=== PATIENT | male | born 1950 | race Caucasian/White ===

== ENCOUNTER → 2016-09-04 | Outpatient (CLI) | payer OTHER ==
[~2016-09-04] MED LIST: ADVIN25050 INH; ASPEC81 PO; GLC500 PO; HYDR-5688 PO; LISI-725 PO; MULTCHW PO; PRLSR20 PO; SERT50TA PO; SIMV20TA2 PO; VNTHFA/IN INH
[2016-09-04 13:10] LABS: BASO % 0.5 %; BASO ABS # 0.05 K/uL (0-0.2); COMPLETE YES; EOS % 6.2 %; HEMATOCRIT 47.5 % (42-52); IG% 0.2 %; LYMPH % 29.6 %; LYMPH ABS # 2.78 K/uL (1.2-3.4); MEAN CELL VOLUME 89.5 fL (80-100); MEAN CORPUSCULAR HEMOGLOBIN 29.6 pg (25-34); MEAN CORPUSCULAR HGB CONC 33.1 g/dl (32-36); MEAN PLATELET VOLUME 10.1 fL (7.4-10.4); MONO % 9.9 %; NEUT % 53.6 %; PLATELET COUNT 237 K/uL (130-400); RED BLOOD COUNT 5.31 M/uL (4.7-6.1)
[2016-09-04 13:32] LABS: ESTIMATED AVERAGE GLUCOSE 123 mg/dl; HA1C FLAG Normal (Normal)
[2016-09-04 13:48] LABS: ALT/SGPT 38 U/L (12-78); AST/SGOT 24 U/L (15-37); BLOOD UREA NITROGEN 14 mg/dl (7-18); BUN/CREATININE RATIO 12.4 (10-20); CALCIUM 9.1 mg/dl (8.5-10.1); CARBON DIOXIDE 26 mmol/L (21-32); CHLORIDE 106 mmol/L (98-107); GLUCOSE 97 mg/dl (70-99); SODIUM 142 mmol/L (136-145)
[2016-09-04 13:53] LABS: ALB/GLOB RATIO 1.1 (0.9-2); ALKALINE PHOSPHATASE 75 U/L (45-117); CHOLESTEROL 152 mg/dl (0-200); CHOLESTEROL/HDL RATIO 3.5; HDL CHOLESTEROL 43 mg/dl; LDL CHOLESTEROL CALCULATED 76 mg/dl; TRIGLYCERIDES 163 mg/dl (0-150); VERY LOW DENSITY LIPOPROT CALC 33 mg/dl
--- NOTE | 2016-09-11 06:38 | CODING QUERY MEDICAL NECESSITY ---
SUPPORTING DIAGNOSIS NEEDED A supporting diagnosis is required for the test/procedure performed on this patient in order for us to be reimbursed by the patient's insurance. Please provide a supporting diagnosis for the following test/procedure listed below next to the test name along with your signature. *If there is no additional diagnosis for this patient that would support the following test/procedure please document that below next to the test/procedure. Test(s)/Procedure(s) that require a supporting diagnosis: * GLYCATED HEMOGLOBIN DIAGNOSIS: * DOS: 09/04/16 Provider Signature: Date: Thank you Bety Acosta Health Information Management Once completed, please kindly fax back to [phone] For questions please call [phone]
== END | disposition home or self-care (01) ==
LOC: C.LAB1850 11:50
PROVIDERS: ATTEND Internal Medicine
DX: Z00.00 Encounter for general adult medical examination without abnormal findings (principal); E78.5 Hyperlipidemia, unspecified; I10 Essential (primary) hypertension; E88.81 Metabolic syndrome and other insulin resistance; R73.03 Prediabetes; N40.0 Benign prostatic hyperplasia without lower urinary tract symptoms

== ENCOUNTER → 2016-09-11 | Outpatient (CLI) | payer OTHER ==
--- NOTE | 2016-09-11 12:16 | DIAGNOSTIC IMAGING REPORT ---
ABDOMEN ULTRASOUND FOR HERNIA CLINICAL HISTORY: RIGHT SIDED GROIN PAIN COMPARISON STUDY: None. FINDINGS: Suboptimal evaluation due to the patient's body habitus. There is small fat-containing reducible right inguinal hernia. No fluid collections or masses identified within the right groin. IMPRESSION: There appears to be a small fat-containing reducible right inguinal hernia. Electronically signed by: Conner Ballard M.D. 09/11/2016 12:14 PM Dictated Date/Time: 09/11/2016 12:14 PM
== END | disposition home or self-care (01) ==
LOC: C.ULTRBC 10:41
PROVIDERS: ATTEND Internal Medicine
DX: R10.30 Lower abdominal pain, unspecified (principal)

== ENCOUNTER → 2016-11-13 | Outpatient (CLI) | payer OTHER ==
[~2016-11-13] MED LIST changes: -PRLSR20 PO
--- NOTE | 2016-11-13 14:24 | DIAGNOSTIC IMAGING REPORT ---
CHEST 2 VIEWS ROUTINE CLINICAL HISTORY: Asthma. COMPARISON STUDY: Chest radiograph May 10, 2011. FINDINGS: Lung volumes are normal. Mild bibasilar opacities favor atelectasis. There is no consolidation to suggest pneumonia and there is no evidence of pulmonary edema. Cardiomediastinal silhouette is normal. Patient is mildly rotated. IMPRESSION: No acute cardiopulmonary findings. Electronically signed by: Fortino Martin M.D. 11/13/2016 2:22 PM Dictated Date/Time: 11/13/2016 2:21 PM
== END | disposition home or self-care (01) ==
LOC: C.RAD1850 14:07
PROVIDERS: ATTEND Internal Medicine
DX: J45.909 Unspecified asthma, uncomplicated (principal)

== ENCOUNTER → 2016-11-19 | Day surgery (SDC) | payer OTHER ==
[2016-11-07 11:33] VITALS: BMI 40.0
--- NOTE | 2016-11-07 12:05 | PAT Medication Instructions ---
Service Date November 07, 2016. Current Home Medication List Albuterol Hfa (Ventolin Hfa), 2-4 PUFFS INH Q6H PRN for Shortness of Breath Aspirin Enteric Coated (Ecotrin Or Generic *), 81 MG PO QPM Fluticasone Prop/Salmeterol (Advair Diskus 250/50 Mcg *), 1 PUFF INH BID Lisinopril (Zestril), 20 MG PO QAM Metformin Hcl (Glucophage *), 500 MG PO BID Multiple Vitamins W/ Minerals (Centrum Silver), 1 TAB PO QAM Sertraline (Zoloft), 50 MG PO QAM Simvastatin (Zocor), 20 MG PO QPM Medication Instructions For Your Scheduled Surgery - Hold the following medications 1 week prior to surgery per surgeon's instructions: Aspirin Enteric Coated (Ecotrin Or Generic *), 81 MG PO QPM - Hold the following medications 48 hours prior to surgery: Metformin Hcl (Glucophage *), 500 MG PO BID - Hold the following medications the morning of surgery: Lisinopril (Zestril), 20 MG PO QAM Multiple Vitamins W/ Minerals (Centrum Silver), 1 TAB PO QAM - Take the following medications the morning of surgery with a sip of water OTHERWISE NOTHING TO EAT OR DRINK AFTER MIDNIGHT: Albuterol Hfa (Ventolin Hfa), 2-4 PUFFS INH Q6H PRN for Shortness of Breath ( use if needed; BRING TO HOSPITAL) Sertraline (Zoloft), 50 MG PO QAM Fluticasone Prop/Salmeterol (Advair Diskus 250/50 Mcg *), 1 PUFF INH BID - Take the following medications as scheduled the night before surgery: Albuterol Hfa (Ventolin Hfa), 2-4 PUFFS INH Q6H PRN for Shortness of Breath Simvastatin (Zocor), 20 MG PO QPM Fluticasone Prop/Salmeterol (Advair Diskus 250/50 Mcg *), 1 PUFF INH BID If you have any questions please call us at [phone] or [phone] or [phone]
[2016-11-07 13:21] LABS: BASO % 0.5 %; BASO ABS # 0.05 K/uL (0-0.2); COMPLETE YES; EOS % 5.3 %; HEMATOCRIT 48.6 % (42-52); IG% 0.2 %; LYMPH % 28.2 %; LYMPH ABS # 2.63 K/uL (1.2-3.4); MEAN CELL VOLUME 92.2 fL (80-100); MEAN CORPUSCULAR HEMOGLOBIN 30.4 pg (25-34); MEAN CORPUSCULAR HGB CONC 32.9 g/dl (32-36); MEAN PLATELET VOLUME 10.1 fL (7.4-10.4); MONO % 10.6 %; NEUT % 55.2 %; PLATELET COUNT 231 K/uL (130-400); RED BLOOD COUNT 5.27 M/uL (4.7-6.1); WHITE BLOOD COUNT 9.31 K/uL (4.8-10.8)
[2016-11-07 14:06] LABS: BUN/CREATININE RATIO 9.9 (10-20); CALCIUM 8.8 mg/dl (8.5-10.1); CREATININE 1.2 mg/dl (0.60-1.40)
[~2016-11-19] VITALS: Ht 180.3 cm; Wt 131.8 kg
[~2016-11-19] MED LIST changes: +ATROPINE SULFATE 0.1 MG/ML 5ML SYR IV PRN; +BUPIVACAINE/EPINEPHRINE 0.5% MPF 1:200,000 30 ML VIAL ONE; +CLINDAMYCIN 600 MG/54 ML D5W IV SCH; +DEXAMETHASONE SOD INJ 4 MG/ML VIAL ONE; +EpHEDrine SULFATE INJ 50 MG/ML AMP IV PRN; +FENTANYL CITRATE INJ 50 MCG/1 ML 2 ML VIAL IV PRN; +FENTANYL CITRATE INJ 50 MCG/1 ML 2 ML VIAL ONE; +FLUMAZENIL 0.1 MG/1 ML 10 ML VIAL IV PRN; +GLYCOPYRROLATE INJ 0.2 MG/ML VIAL ONE; +HYDROCODONE/ACETAMOPHEN 5/325MG TAB PO PRN; +HYDROmorphone INJ 2 MG/ML SYR/VIAL IV PRN; +LABETALOL HCL IV 5 MG/ML 20ML IV PRN; +LACTATED RINGER'S 1000ML 1,000 ML IV SCH; +LIDOCAINE HCL 2% 2 ML VIAL (20MG/ML) ONE; +MEPERIDINE HCL 25 MG/ML CARP IV PRN; +MIDAZOLAM HCL 1 MG/ML 2ML VIAL ONE; +NALOXONE HCL 0.4 MG/1 ML VIAL/CARP IV PRN; +NEOSTIGMINE METHYLSULFATE 5 MG/5 ML SYR ONE; +ONDANSETRON INJ 2 MG/ML 2 ML VIAL IV PRN; +ONDANSETRON INJ 2 MG/ML 2 ML VIAL ONE; +PHENYLEPHRINE 100MCG/ML 5ML SYR IV PRN; +PROPOFOL IV EMULSION 10 MG/ML 20 ML VIAL IV ONE; +ROCURONIUM BROMIDE 10 MG/ML 5 ML VIAL ONE; +SODIUM CHLORIDE 0.9% 1000ML 1,000 ML IV SCH; +SUCCINYLCHOLINE CHLORIDE 20 MG/ML 10 ML VIAL IV ONE
[2016-11-19 06:45] VITALS: BP 128/77; PULSE 89; TEMP 37.2; O2SAT 93; Ht 180.3 cm; Wt 131.8 kg
--- NOTE | 2016-11-19 08:04 | History & Physical Bridge Note ---
H&P Re-Evaluation Bridge Note: I have examined the patient, reviewed the History & Physical and in the interval since the performance of the History & Physical I have noted the following changes of clinical significance: No changes noted
--- NOTE | 2016-11-19 09:55 | [facility] Operative Report ---
Operative Report Operative Date Nov 19, 2016. Pre-Operative Diagnosis Right Inguinal Hernia Post-Operative Diagnosis direct and indirect RIH Procedure(s) Performed open right inguinal hernia repair with mesh Surgeon Dr. Barry Hobbing Machine Operator Surgeon(s) Nikki Trevino Estimated Blood Loss 10 ml Findings large direct and small indirect RIH Specimens None per Surgeon Anesthesia LMA Complication(s) None Disposition Recovery Room / PACU I attest to the content of the Intraoperative Record and any orders documented therein. Any exceptions are noted below.
--- NOTE | 2016-11-19 10:08 | Discharge Instructions ---
Discharge Instructions Date of Service Nov 19, 2016. Admission Reason for Admission: Right Inguinal Hernia Discharge Discharge Diagnosis / Problem: Right Inguinal Hernia Discharge Goals Goal(s): Decrease discomfort, Improve function Activity Recommendations Activity Limitations: as noted below Lifting Limitations: no more than 10 pounds Exercise/Sports Limitations: until after follow-up appointment May Resume Sexual Activity: after follow-up appointment Shower/Bathe: tomorrow . Instructions / Follow-Up Instructions / Follow-Up Please follow-up with Dr. Barry in the office in 1-2 weeks. Please call the office at [phone] to make an appointment if you do not have one already. Please call the office with any questions or concerns at [phone]. Current Hospital Diet Patient's current hospital diet: Discharge Diet Recommended Diet: Regular Diet Procedures Procedures Performed: Right Open Inguinal Hernia Repair with Mesh Pending Studies Studies pending at discharge: no Laboratory Results Hemoglobin A1c Test 09/04/16 11:54 Range/Units Estimated Average Glucose 123 mg/dl Hemoglobin A1c 5.9 H 4.5-5.6 % Lipid Panel Test 09/04/16 11:54 Range/Units Triglycerides Level 163 H 0-150 mg/dl Cholesterol Level 152 0-200 mg/dl HDL Cholesterol 43 mg/dl Cholesterol/HDL Ratio 3.5 LDL Cholesterol, Calculated 76 mg/dl Medical Emergencies . Who to Call and When: Medical Emergencies: If at any time you feel your situation is an emergency, please call 911 immediately. . Non-Emergent Contact Non-Emergency issues call your: Primary Care Provider, Surgeon Call Non-Emergent contact if: temperature is above 101.5, your pain is not controlled, wound has increased drainage, wound has increased redness . "Provider Documentation" section prepared by Nikki Frazier. . VTE Core Measure Inpt VTE Proph given/why not?: SCD's [place] Drug Monitoring Program Search Results: patient reviewed within database, no issues identified
--- NOTE | 2016-11-19 10:28 | Anesthesiology Progress Note ---
Anesthesia Post Op Note Date & Time Nov 19, 2016 at 10:28 Vital Signs Pain Intensity: 0 Vital Signs Past 12 Hours Date Time Temp Pulse Resp B/P (MAP) Pulse Ox O2 Delivery O2 Flow Rate FiO2 11/19/16 10:20 76 16 148/79 94 Room Air 11/19/16 10:10 76 16 154/60 99 Mask 10 11/19/16 10:00 77 16 156/78 98 Mask 10 11/19/16 09:54 36.5 81 16 154/79 97 Mask 10 11/19/16 06:45 37.2 89 18 128/77 (94) 93 Room Air Notes Mental Status: alert / awake / arousable, participated in evaluation Pt Amnestic to Procedure: Yes Nausea / Vomiting: adequately controlled Pain: adequately controlled Airway Patency, RR, SpO2: stable & adequate BP & HR: stable & adequate Hydration State: stable & adequate Anesthetic Complications: no major complications apparent
[2016-11-19 10:35] VITALS: BP 145/76; PULSE 78; TEMP 37; O2SAT 94
--- NOTE | 2016-11-19 11:03 | OPERATIVE REPORT ---
DATE OF OPERATION: 11/19/2016 PREOPERATIVE DIAGNOSIS: Symptomatic right inguinal hernia. POSTOPERATIVE DIAGNOSES: Direct and indirect right inguinal hernia. PROCEDURE: Open right inguinal hernia repair with mesh. SURGEON: Dr. Barry. TOOL AND MACHINE MAINTAINER: Nikki Frazier PA-C. ESTIMATED BLOOD LOSS: Approximately 10 mL. COMPLICATIONS: No immediate. ANESTHESIA: General with a laryngeal mask airway. OPERATIVE NOTE: After informed consent was obtained, the patient taken the operating suite, placed in supine position. After successful intubation, a Brown catheter was placed and the right groin was shaved and sterilely prepped and draped in usual fashion. An inguinal incision was made with 10 blade scalpel and carried down through the soft tissue using electrocautery. Exposure was somewhat difficult due to body habitus. Nonetheless, we were able to identify and skeletonize the external oblique aponeurosis. With a fresh blade, we made an incision in that and then used a Metzenbaum scissors to extend this distally through the external ring as well as for several centimeters proximally. Once in the inguinal canal, I used blunt finger dissection. We were able to gently elevate the cord and cord structures off the pubic bone. A Ermelinda drain was placed around them. Once we did this, we immediately noted a moderate sized direct hernia. It was readily reducible. We did inspect the cord and cord structures and did find a small indirect hernia with some fat incarceration. I was able to use some blunt dissection and small amounts of electrocautery to tease this back to the neck of the hernia. We did clamp the hernia and divided it and tied it off with 3-0 Vicryl and dunked it back into the abdominal cavity. We then used a piece of keyhole polypropylene mesh as an onlay. It was secured distally to Dawit's ligament, laterally along the shelving portion of Poupart's ligament and medially along the midline musculature. This was all performed with 0 Ethibond. The "arms" of the mesh were wrapped around behind the cord and cord structures and again secured to underlying muscle. At the end of procedure, the mesh laid nice and flat without tension. We did thoroughly irrigate the wound. There was adequate hemostasis. Some Marcaine was injected around the edges of the mesh for postoperative analgesia. A 2-0 Vicryl was used to close the external oblique aponeurosis in running fashion. Soft tissue was irrigated and closed in multiple layers using 2-0 Vicryl, 3-0 Vicryl and 4-0 Monocryl. Dermabond glue was used as a dressing, and some additional Marcaine was injected around the incision for postoperative analgesia. The patient was awakened, extubated, and transferred to recovery in stable condition. I attest to the content of the Intraoperative Record and any orders documented therein. Any exception s are noted below.
[2016-11-19 11:05] VITALS: BP 156/78; PULSE 81; TEMP 36.6; O2SAT 94
== END | disposition home or self-care (01) ==
LOC: C.ACU 06:11
PROVIDERS: ATTEND Surgery
DX: K40.90 Unilateral inguinal hernia, without obstruction or gangrene, not specified as recurrent (principal); J45.909 Unspecified asthma, uncomplicated; I10 Essential (primary) hypertension; E11.9 Type 2 diabetes mellitus without complications; E78.5 Hyperlipidemia, unspecified; J44.9 Chronic obstructive pulmonary disease, unspecified; G47.33 Obstructive sleep apnea (adult) (pediatric); M19.90 Unspecified osteoarthritis, unspecified site; Z87.891 Personal history of nicotine dependence; Z98.818 Other dental procedure status; Z98.890 Other specified postprocedural states; Z88.0 Allergy status to penicillin; Z90.89 Acquired absence of other organs; Z79.82 Long term (current) use of aspirin; E66.01 Morbid (severe) obesity due to excess calories; Z68.41 Body mass index [BMI] 40.0-44.9, adult

== ENCOUNTER → 2017-03-07 | Outpatient (CLI) | payer OTHER ==
[~2017-03-07] MED LIST changes: -ATROPINE SULFATE 0.1 MG/ML 5ML SYR IV PRN; -BUPIVACAINE/EPINEPHRINE 0.5% MPF 1:200,000 30 ML VIAL ONE; -CLINDAMYCIN 600 MG/54 ML D5W IV SCH; -DEXAMETHASONE SOD INJ 4 MG/ML VIAL ONE; -EpHEDrine SULFATE INJ 50 MG/ML AMP IV PRN; -FENTANYL CITRATE INJ 50 MCG/1 ML 2 ML VIAL IV PRN; -FENTANYL CITRATE INJ 50 MCG/1 ML 2 ML VIAL ONE; -FLUMAZENIL 0.1 MG/1 ML 10 ML VIAL IV PRN; -GLYCOPYRROLATE INJ 0.2 MG/ML VIAL ONE; -HYDR-5688 PO; -HYDROCODONE/ACETAMOPHEN 5/325MG TAB PO PRN; -HYDROmorphone INJ 2 MG/ML SYR/VIAL IV PRN; -LABETALOL HCL IV 5 MG/ML 20ML IV PRN; -LACTATED RINGER'S 1000ML 1,000 ML IV SCH; -LIDOCAINE HCL 2% 2 ML VIAL (20MG/ML) ONE; -MEPERIDINE HCL 25 MG/ML CARP IV PRN; -MIDAZOLAM HCL 1 MG/ML 2ML VIAL ONE; -NALOXONE HCL 0.4 MG/1 ML VIAL/CARP IV PRN; -NEOSTIGMINE METHYLSULFATE 5 MG/5 ML SYR ONE; -ONDANSETRON INJ 2 MG/ML 2 ML VIAL IV PRN; -ONDANSETRON INJ 2 MG/ML 2 ML VIAL ONE; -PHENYLEPHRINE 100MCG/ML 5ML SYR IV PRN; -PROPOFOL IV EMULSION 10 MG/ML 20 ML VIAL IV ONE; -ROCURONIUM BROMIDE 10 MG/ML 5 ML VIAL ONE; -SODIUM CHLORIDE 0.9% 1000ML 1,000 ML IV SCH; -SUCCINYLCHOLINE CHLORIDE 20 MG/ML 10 ML VIAL IV ONE
[2017-03-07 12:22] LABS: ESTIMATED AVERAGE GLUCOSE 123 mg/dl; HA1C FLAG Normal (Normal)
[2017-03-07 12:33] LABS: BLOOD UREA NITROGEN 17 mg/dl (7-18); BUN/CREATININE RATIO 15.1 (10-20); CALCIUM 9.4 mg/dl (8.5-10.1); CARBON DIOXIDE 25 mmol/L (21-32); CHLORIDE 107 mmol/L (98-107); GLUCOSE 107 mg/dl (70-99); POTASSIUM 4.2 mmol/L (3.5-5.1); SODIUM 139 mmol/L (136-145)
[2017-03-07 12:36] LABS: ALT/SGPT 29 U/L (12-78); AST/SGOT 17 U/L (15-37); CHOLESTEROL 149 mg/dl (0-200); CHOLESTEROL/HDL RATIO 3.5; HDL CHOLESTEROL 42 mg/dl; LDL CHOLESTEROL CALCULATED 76 mg/dl; TRIGLYCERIDES 153 mg/dl (0-150); VERY LOW DENSITY LIPOPROT CALC 31 mg/dl
== END | disposition home or self-care (01) ==
LOC: C.LAB1850 10:27
PROVIDERS: ATTEND Internal Medicine
DX: Z00.00 Encounter for general adult medical examination without abnormal findings (principal); Z11.59 Encounter for screening for other viral diseases; E78.5 Hyperlipidemia, unspecified; I10 Essential (primary) hypertension; R73.03 Prediabetes

== ENCOUNTER → 2017-09-04 | Outpatient (CLI) | payer OTHER ==
[2017-09-04 12:55] LABS: HEMOGLOBIN A1C 5.9 % (4.5-5.6)
[2017-09-04 13:56] LABS: ALT/SGPT 29 U/L (12-78); AST/SGOT 16 U/L (15-37); BLOOD UREA NITROGEN 12 mg/dl (7-18); CALCIUM 9.3 mg/dl (8.5-10.1); CARBON DIOXIDE 27 mmol/L (21-32); CHOLESTEROL 163 mg/dl (0-200); CREATININE 1.12 mg/dl (0.60-1.40); GLUCOSE 101 mg/dl (70-99); SODIUM 139 mmol/L (136-145)
[2017-09-04 14:07] LABS: LDL CHOLESTEROL CALCULATED 91 mg/dl
== END | disposition home or self-care (01) ==
LOC: C.LAB1850 10:22
PROVIDERS: ATTEND Internal Medicine
DX: E78.5 Hyperlipidemia, unspecified (principal); I10 Essential (primary) hypertension; R73.03 Prediabetes; E88.81 Metabolic syndrome and other insulin resistance

== ENCOUNTER 2021-07-19 19:43 | Inpatient (IN) ==
--- NOTE | 2021-07-19 20:12 | Emergency Department Note ---
Impression & Plan Acute exacerbation of chronic obstructive pulmonary disease, Pneumonia, Acute hypoxemic respiratory failure, Acute dehydration, Influenza A ED Provider Note NAME: VAZQUEZ PACE AGE: 71 SEX: M : 1950 ARRIVES VIA: Ambulance INFORMANT: patient, ED PROVIDER(S): Gerson Walton MD Chief Complaint: Shortness of breath HPI: Patient presents due to concern for shortness of breath ongoing approximately a week and a half and progressively worse during this time. The patient believes that he may have the flu but has not been tested for Covid or the flu and the patient is not vaccinated. The patient has had a nonproductive cough. Patient is a former smoker but is not smoked since the . Patient denies any history of DVT or PE. The patient has not been eating or drinking very much and to try to eat today and had a little bit of diarrhea. The patient states that he has been more less short in his home for the last several months and has not left his home. Patient denies any recent surgeries or procedures. The patient denies any abdominal pain nausea or vomiting. ROS: See HPI for pertinent positives and negatives. A total of 10 systems were reviewed and otherwise negative. Past medical history: See below Surgical history: See below Social history: See below Physical Exam: GENERAL: Moderately ill in appearance, nasal cannula in place, wearing a mask EYE EXAM: Normal conjunctiva. PERRL, no anisocoria and EOM's grossly intact w/o pain. OROPHARYNX: Moist mucus membranes. Grossly normal dentition. NECK: Supple, no nuchal rigidity, no adenopathy, non-tender. No signs of mening ismus. LUNGS: Diffuse inspiratory and expiratory wheezes throughout. Normal chest wall mechanics. HEART: Tachycardic and regular, no MRG. ABDOMEN: Abdomen soft, non-tender, normo-active bowel sounds, no masses, no rebound or guarding. BACK: No CVA TTP. SKIN: No rashes and no bruising. UPPER EXTREMITIES: Upper extremities are grossly normal. LOWER EXTREMITIES: Mottled feet but normal sensation, delayed cap refill, no temperature difference bilaterally. Rash over the lateral aspect of the right leg with open area with no active drainage, no crepitus, compartments are soft. No calf pain bilaterally NEURO EXAM: A&O x3, cranial nerves II-XII grossly intact, normal speech, moves all 4 extremities on command w/o issue. Differential diagnoses: Reactive airway disease, pneumonia, pneumothorax, COPD, CHF, infections, cardiac ischemia, pulmonary embolism, musculoskeletal, gastrointestinal, as well as other pathologies. Course: Patient was seen and evaluated the bedside. Full history physical exam was performed. EKG interpreted by me Sinus tachycardia, rate of 115, normal NM and QRS, normal axis, machine read as acute STEMI but there is motion artifact and the patient denies any chest pain. Imaging Studies: See Below Cardiac monitoring: An order was placed for continuous cardiac monitoring. The monitor shows a rate of 125 with tachycardic and regular rhythm. MDM: Patient was seen due to concern for shortness of breath. The patient did have diffuse wheezing throughout. Patient did have blood work completed and was treated symptomatically given his history of COPD and respiratory distress. The patient did not want BiPAP and stated that he would not be intubated. The patient's symptoms were treated with DuoNeb steroids magnesium and fluids. Patient was covered with antibiotics cefepime. The patient has a white count was 13 with mild anemia at 12.3 hemoglobin. Patient's platelet count is unremarkable. VBG does not show any signs of acidosis or hypercarbia. Kidney function is unremarkable. Patient's troponin is not detectable. Procalcitonin was 2.2. The patient is negative for Covid but is positive for flu A. Patient was ordered Tamiflu. Given patient's respiratory issues I did speak with the on-call hospitalist Dr. Moss and the patient was admitted to the medicine service. EKG showed sinus tachycardia. Patient does not complain of chest pain and has a negative troponin. Do not believe that he is having acute STEMI believe that the machine is reading it based on the motion artifact. Patient's history and physical exam is more consistent with infectious etiology. Critical Care: I have personally spent 55 minutes of critical care time in direct management of this patient. This includes bedside care, interpretation of diagnostic studies, and testing, discussion with consultants, patient, and family members, and other require inpatient management activities. This 55 minutes is in excess of all separately billable procedures. Past Med/Surg History Medical History Asthma COPD (chronic obstructive pulmonary disease) Diverticulosis Dyslipidemia GERD (gastroesophageal reflux disease) HTN (hypertension) Sleep apnea Surgical History H/O inguinal hernia repair H/O oral surgery History of throat surgery for sleep apnea- Dr. Arriola S/P partial colectomy S/P tonsillectomy and adenoidectomy Family History Other Adopted Family history unknown Social History Smoking Status: Former smoker Tobacco Type: Cigarettes Second Hand Exposure: No; Do You Dip or Chew Tobacco: No; Tobacco Cessation Education Requested by Patient: Yes Hx Alcohol Use: No Hx Substance Use: No Preferred Language: French Communication Ability: Effective Visual Impairment: No Limitations Hearing Ability: Normal Storyboard Artist Required: No Beliefs That Will Affect Care: None marital status: Current Living Situation: Spouse and Family current occupational status: unemployed and disabled Other Information That Helps Us Care for You: No Feels Safe at Home: Yes Safety Concerns: Feels Safe At This Time Childhood Exposure to Second-Hand Smoke: Yes during the past year weight has: remained stable Dental Care, Regularly: No Physical Activity Frequency: Does not Exercise Seatbelt Use: always Sunscreen Use: No Assistive Devices: Walker Allergies Allergies Allergy/AdvReac Type Severity Reaction Status Date / Time cheese Allergy Unknown SICK TO Verified 07/19/21 21:32 STOMACH Penicillins Allergy Unknown RASH Verified 07/19/21 21:32 Home Meds Home Medications Medication Instructions Recorded Confirmed aspirin 81 mg tablet,delayed 81 mg PO QPM 03/07/19 07/19/21 release (Adult Aspirin Regimen) multivitamin 1 tab PO DAILY 03/07/19 07/19/21 Previous Rx's Medication Instructions Recorded Symbicort 160 mcg-4.5 2 puff INH BID #30.6 g NS 09/01/20 mcg/actuation HFA aerosol inhaler (budesonide-formoterol) sertraline 50 mg tablet 50 mg PO DAILY #90 tab 09/19/20 albuterol sulfate 90 mcg/actuation 1 - 2 puff INH Q4H PRN #54 gm 09/20/20 aerosol inhaler (Ventolin HFA) lisinopril 20 mg tablet 20 mg PO DAILY #90 tab 03/02/21 metformin 500 mg tablet 500 mg PO BID #180 tab 03/02/21 simvastatin 20 mg tablet (Zocor) 20 mg PO QPM #90 tab 03/02/21 furosemide 20 mg tablet 20 mg PO DAILY #90 tab 06/22/21 potassium chloride 10 mEq 10 meq PO DAILY #90 cap 06/22/21 capsule,extended release Results & Data (ED) Vital Signs Vital Signs - 24 hr 07/19/21 20:12 07/19/21 21:03 07/19/21 21:51 Temperature 36.5 C Temperature Source Oral Pulse Rate 123 H 94 H Pulse Rate [Finger] 123 H Respiratory Rate 26 H 19 Respiratory Effort / Characteristics Labored Labored Respiratory Depth Shallow Respiratory Pattern Rapid/Shallow Blood Pressure 108/80 Blood Pressure [Left Arm] 108/80 Blood Pressure Mean 89 Blood Pressure Mean [Left Arm] 89 Blood Pressure Position [Left Arm] Sitting Pulse Oximetry 92 94 93 Oxygen Delivery Method Nasal Cannula Nasal Cannula Nasal Cannula Oxygen Flow Rate 8 8 6 Sepsis Recent Fever Within 48 Hours No Sepsis New/Unexplained Change in Mental Status N/A Sepsis Action Taken by Nursing Physician Notified Oxygen Flow Rate - Titration 8 Pulse Oximetry Post Tiitration 92 07/19/21 22:21 Temperature Temperature Source Pulse Rate Pulse Rate [Finger] 135 H Respiratory Rate Respiratory Effort / Characteristics Respiratory Depth Respiratory Pattern Blood Pressure Blood Pressure [Left Arm] 186/109 H Blood Pressure Mean Blood Pressure Mean [Left Arm] 134 Blood Pressure Position [Left Arm] Sitting Pulse Oximetry 93 Oxygen Delivery Method Nasal Cannula BiPAP Oxygen Flow Rate 8 Sepsis Recent Fever Within 48 Hours Sepsis New/Unexplained Change in Mental Status Sepsis Action Taken by Nursing Oxygen Flow Rate - Titration Pulse Oximetry Post Tiitration Home Medications Current Medication List: was personally reviewed by me Laboratory Data Attestation: I reviewed the patient's lab results. Result diagrams: 07/20/21 06:10 07/20/21 06:10 Lab Results 07/19/21 07/19/21 07/19/21 Range/Units 20:34 20:34 20:34 WBC 13.52 H (4.8-10.8) K/uL RBC 4.11 L (4.7-6.1) M/uL Hgb 12.3 L (14.0-18.0) g/dL Hct 37.2 L (42-52) % MCV 90.5 (80-100) fL MCH 29.9 (25-34) pg MCHC 33.1 (32-36) g/dL RDW Std Deviation 46.4 H (36.4-46.3) fL RDW Coeff of Jocelyn 13.8 (11.5-14.5) % Plt Count 291 (130-400) K/uL MPV 9.2 (7.4-10.4) fL Immature Gran % (Auto) 0.4 % Neut % (Auto) 84.3 % Lymph % (Auto) 6.4 % Hamilton % (Auto) 8.3 % Eos % (Auto) 0.5 % Baso % (Auto) 0.1 % Neut # (Auto) 11.39 H (1.4-6.5) K/uL Lymph # (Auto) 0.87 L (1.2-3.4) K/uL Hamilton # (Auto) 1.12 H (0.11-0.59) K/uL Eos # (Auto) 0.07 (0-0.5) K/uL Baso # (Auto) 0.02 (0-0.2) K/uL Immature Gran # (Auto) 0.05 H (0.00-0.02) K/uL PT 10.5 (9.0-12.0) Seconds INR 1.0 (0.9-1.1) APTT 26.2 (21.0-31.0) Seconds PTT Ratio 1.0 VBG pH (7.36-7.41) VBG pCO2 (38-50) mmHg VBG pO2 mmHg VBG HCO3 mmol/L VBG O2 Saturation % VBG Base Excess mEq/L Barometric Pressure mm/Hg Sodium 137 (136-145) mmol/L Potassium 4.5 (3.5-5.1) mmol/L Chloride 104 (98-107) mmol/L Carbon Dioxide 25 (21-32) mmol/L Anion Gap 8 (3-11) BUN 23 (6-23) mg/dl Creatinine 1.19 (0.6-1.4) mg/dl Est Cr Clr Drug Dosing 79.7 ml/min Est GFR ( Amer) 70.3 ml/min Est GFR (Non-Af Amer) 60.7 ml/min BUN/Creatinine Ratio 19.3 (10-20) Glucose 118 H (70-99(Fasting)) mg/dl Lactate (0.4-2.0) mmol/L Calcium 9.1 (8.5-10.1) mg/dl Magnesium 1.6 L (1.7-2.4) mg/dl Total Bilirubin 0.8 (0.2-1.0) mg/dl AST 37 (13-39) U/L ALT 34 (7-52) U/L Alkaline Phosphatase 62 (34-104) U/L Troponin I < 0.03 (0-0.04) ng/ml Total Protein 7.0 (6.0-8.3) gm/dl Albumin 3.3 L (3.4-5.0) gm/dl Globulin 3.7 (2.5-4.0) gm/dl Albumin/Globulin Ratio 0.9 (0.9-2) Procalcitonin (0-0.5) ng/ml SARS-CoV-2 (PCR) (Negative) Influenza Type A (PCR) (Neg) Influenza Type B (PCR) (Neg) RSV (RT-PCR) (Neg) 07/19/21 07/19/21 07/19/21 Range/Units 20:34 20:34 20:34 WBC (4.8-10.8) K/uL RBC (4.7-6.1) M/uL Hgb (14.0-18.0) g/dL Hct (42-52) % MCV (80-100) fL MCH (25-34) pg MCHC (32-36) g/dL RDW Std Deviation (36.4-46.3) fL RDW Coeff of Jocelyn (11.5-14.5) % Plt Count (130-400) K/uL MPV (7.4-10.4) fL Immature Gran % (Auto) % Neut % (Auto) % Lymph % (Auto) % Hamilton % (Auto) % Eos % (Auto) % Baso % (Auto) % Neut # (Auto) (1.4-6.5) K/uL Lymph # (Auto) (1.2-3.4) K/uL Hamilton # (Auto) (0.11-0.59) K/uL Eos # (Auto) (0-0.5) K/uL Baso # (Auto) (0-0.2) K/uL Immature Gran # (Auto) (0.00-0.02) K/uL PT (9.0-12.0) Seconds INR (0.9-1.1) APTT (21.0-31.0) Seconds PTT Ratio VBG pH 7.38 (7.36-7.41) VBG pCO2 42 (38-50) mmHg VBG pO2 32 mmHg VBG HCO3 24 mmol/L VBG O2 Saturation < 60.0 % VBG Base Excess -0.9 mEq/L Barometric Pressure 727.6 mm/Hg Sodium (136-145) mmol/L Potassium (3.5-5.1) mmol/L Chloride (98-107) mmol/L Carbon Dioxide (21-32) mmol/L Anion Gap (3-11) BUN (6-23) mg/dl Creatinine (0.6-1.4) mg/dl Est Cr Clr Drug Dosing ml/min Est GFR ( Amer) ml/min Est GFR (Non-Af Amer) ml/min BUN/Creatinine Ratio (10-20) Glucose (70-99(Fasting)) mg/dl Lactate 1.6 (0.4-2.0) mmol/L Calcium (8.5-10.1) mg/dl Magnesium (1.7-2.4) mg/dl Total Bilirubin (0.2-1.0) mg/dl AST (13-39) U/L ALT (7-52) U/L Alkaline Phosphatase (34-104) U/L Troponin I (0-0.04) ng/ml Total Protein (6.0-8.3) gm/dl Albumin (3.4-5.0) gm/dl Globulin (2.5-4.0) gm/dl Albumin/Globulin Ratio (0.9-2) Procalcitonin 2.27 H (0-0.5) ng/ml SARS-CoV-2 (PCR) (Negative) Influenza Type A (PCR) (Neg) Influenza Type B (PCR) (Neg) RSV (RT-PCR) (Neg) 07/19/21 Range/Units 21:03 WBC (4.8-10.8) K/uL RBC (4.7-6.1) M/uL Hgb (14.0-18.0) g/dL Hct (42-52) % MCV (80-100) fL MCH (25-34) pg MCHC (32-36) g/dL RDW Std Deviation (36.4-46.3) fL RDW Coeff of Jocelyn (11.5-14.5) % Plt Count (130-400) K/uL MPV (7.4-10.4) fL Immature Gran % (Auto) % Neut % (Auto) % Lymph % (Auto) % Hamilton % (Auto) % Eos % (Auto) % Baso % (Auto) % Neut # (Auto) (1.4-6.5) K/uL Lymph # (Auto) (1.2-3.4) K/uL Hamilton # (Auto) (0.11-0.59) K/uL Eos # (Auto) (0-0.5) K/uL Baso # (Auto) (0-0.2) K/uL Immature Gran # (Auto) (0.00-0.02) K/uL PT (9.0-12.0) Seconds INR (0.9-1.1) APTT (21.0-31.0) Seconds PTT Ratio VBG pH (7.36-7.41) VBG pCO2 (38-50) mmHg VBG pO2 mmHg VBG HCO3 mmol/L VBG O2 Saturation % VBG Base Excess mEq/L Barometric Pressure mm/Hg Sodium (136-145) mmol/L Potassium (3.5-5.1) mmol/L Chloride (98-107) mmol/L Carbon Dioxide (21-32) mmol/L Anion Gap (3-11) BUN (6-23) mg/dl Creatinine (0.6-1.4) mg/dl Est Cr Clr Drug Dosing ml/min Est GFR ( Amer) ml/min Est GFR (Non-Af Amer) ml/min BUN/Creatinine Ratio (10-20) Glucose (70-99(Fasting)) mg/dl Lactate (0.4-2.0) mmol/L Calcium (8.5-10.1) mg/dl Magnesium (1.7-2.4) mg/dl Total Bilirubin (0.2-1.0) mg/dl AST (13-39) U/L ALT (7-52) U/L Alkaline Phosphatase (34-104) U/L Troponin I (0-0.04) ng/ml Total Protein (6.0-8.3) gm/dl Albumin (3.4-5.0) gm/dl Globulin (2.5-4.0) gm/dl Albumin/Globulin Ratio (0.9-2) Procalcitonin (0-0.5) ng/ml SARS-CoV-2 (PCR) NEGATIVE (Negative) Influenza Type A (PCR) Positive A* (Neg) Influenza Type B (PCR) Negative (Neg) RSV (RT-PCR) Negative (Neg) Administered Medications Albuterol (Albut/Ipratrop 3mg/0.5mg Neb 3 Ml Vial) 3 ml NEB Q4R [facility]; Protocol Stop: 08/18/21 23:57 Last Admin: 07/20/21 14:34 Dose: 3 ml Documented by: [id number] Admin: 07/20/21 11:14 Dose: 3 ml Documented by: [id number] Admin: 07/20/21 07:10 Dose: 3 ml Documented by: [id number] Admin: 07/20/21 03:32 Dose: 3 ml Documented by: [id number] Admin: 07/20/21 00:40 Dose: 3 ml Documented by: [id number] Enoxaparin Sodium (Enoxaparin Inj 40 Mg/0.4 Ml Syr) 40 mg SQ BID [facility] Stop: 08/19/21 00:29 Last Admin: 07/20/21 10:58 Dose: 40 mg Documented by: [id number] Admin: 07/20/21 00:46 Dose: 40 mg Documented by: [id number] Fluticasone/Vilanterol (Fluticasone/Vilanterol 200/25mcg 14 Puffs/Inhaler) 1 puffs INH DAILY [facility] Stop: 08/19/21 08:59 Last Admin: 07/20/21 08:17 Dose: 1 puffs Documented by: [id number] Furosemide (Furosemide 20 Mg Tab) 20 mg PO DAILY [facility] Stop: 08/19/21 08:59 Last Admin: 07/20/21 08:17 Dose: 20 mg Documented by: [id number] Cefepime HCl 2,000 mg/ Syringe 20 mls @ 5 mls/min IV Q8H [facility]; Protocol Stop: 07/27/21 05:59 Last Admin: 07/20/21 13:20 Dose: 5 mls/min Documented by: [id number] Admin: 07/20/21 05:52 Dose: 5 mls/min Documented by: [id number] Methylprednisolone 40 mg/ (Syringe) 0.64 mls @ 1.5 mls/min IV Q8H [facility] Stop: 08/19/21 05:59 Last Admin: 07/20/21 13:20 Dose: 1.5 mls/min Documented by: [id number] Admin: 07/20/21 05:52 Dose: 1.5 mls/min Documented by: [id number] Lisinopril (Lisinopril 20 Mg Tab) 20 mg PO DAILY [facility] Stop: 08/19/21 08:59 Last Admin: 07/20/21 08:17 Dose: 20 mg Documented by: [id number] Potassium Chloride (Potassium Chloride 10 Meq Tabcr) 10 meq PO DAILY [facility] Stop: 08/19/21 08:59 Last Admin: 07/20/21 08:17 Dose: 10 meq Documented by: [id number] Sertraline HCl (Sertraline Hcl 50 Mg Tablet) 50 mg PO DAILY [facility] Stop: 08/19/21 08:59 Last Admin: 07/20/21 08:17 Dose: 50 mg Documented by: [id number] Discontinued Medications Albuterol (Albut/Ipratrop 3mg/0.5mg Neb 3 Ml Vial) 12 ml INH ONE STA Stop: 07/19/21 20:21 Last Admin: 07/19/21 20:47 Dose: 12 ml Documented by: [id number] Sodium Chloride (Nss) 500 mls @ 999 mls/hr IV .Q31M STA Stop: 07/19/21 20:50 Last Infusion: 07/19/21 21:50 Dose: 0 mls/hr Documented by: [id number] Admin: 07/19/21 20:56 Dose: 999 mls/hr Documented by: [id number] Magnesium Sulfate/Dextrose (Magnesium Sulfate / D5w) 1 gm in 100 mls @ 100 mls/hr IV NOW STA Stop: 07/19/21 21:20 Last Infusion: 07/19/21 21:50 Dose: 0 mls/hr Documented by: [id number] Admin: 07/19/21 20:56 Dose: 100 mls/hr Documented by: [id number] Cefepime HCl (Maxipime) 2,000 mg in 20 mls @ 5 mls/min IV NOW STA; Protocol Stop: 07/19/21 21:39 Last Admin: 07/19/21 22:13 Dose: 5 mls/min Documented by: [id number] Azithromycin 500 mg/ Dextrose 255 mls @ 127.5 mls/hr IV NOW STA Stop: 07/20/21 01:35 Last Infusion: 07/20/21 03:19 Dose: 0 mls/hr Documented by: [id number] Admin: 07/20/21 00:46 Dose: 127.5 mls/hr Documented by: [id number] Lactated Ringer's (Lr) 1,000 mls @ 80 mls/hr IV .[id number] [facility] Stop: 07/21/21 00:57 Last Infusion: 07/20/21 14:16 Dose: 0 mls/hr Documented by: [id number] Admin: 07/20/21 13:20 Dose: 80 mls/hr Documented by: [id number] Infusion: 07/20/21 13:16 Dose: 80 mls/hr Documented by: [id number] Admin: 07/20/21 00:46 Dose: 80 mls/hr Documented by: [id number] Methylprednisolone (Methylprednisolone 125 Mg/2 Ml Vial) 60 mg IV NOW STA Stop: 07/19/21 20:21 Last Admin: 07/19/21 20:58 Dose: 60 mg Documented by: [id number] Oseltamivir Phosphate (Oseltamivir Phosphate 75 Mg Cap) 75 mg PO NOW STA; Protocol Stop: 07/19/21 21:59 Last Admin: 07/19/21 22:13 Dose: 75 mg Documented by: [id number] Imaging Data Radiologist's Impression: Chest X-Ray 07/19/21 20:20 XR chest 1V portable CLINICAL HISTORY: SEPSIS TECHNIQUE: Single frontal radiograph of the chest was obtained. Comparison: None available at the time of this dictation. FINDINGS: No lines and tubes are seen. The cardiomediastinal silhouette is normal. Multifocal airspace opacities are seen. These are most prominent in the right l ower lung. No evidence of pleural effusion or pneumothorax. IMPRESSION: Multifocal airspace opacities may represent atelectasis, pneumonia, and/or aspiration. ACT 112: Negative or not required by law. Electronically signed by: James Pisano M.D. 07/20/2021 9:03 AM Discharge Plan Visit Data Chief Complaint: Shortness of Breath/Dyspnea Stated Complaint: SHORTNESS OF BREATH Discharge Problem: Acute exacerbation of chronic obstructive pulmonary disease, Pneumonia, Acute hypoxemic respiratory failure, Acute dehydration, Influenza A Patient Disposition: Admitted As Inpatient Discharge Instructions Interventions: ED Discharge Assessment Last Done: 07/19/21 23:33 Discharge Problem: Pneumonia Qualifiers: Pneumonia type: due to unspecified organism Laterality: bilateral Lung location: unspecified part of lung Qualified Code(s): J18.9 - Pneumonia, unspecified organism
[2021-07-19] MEDS ORDERED: ALBUT/IPRATROP 3MG/0.5MG NEB 3 ML VIAL INH STA (20:20)
[2021-07-19] MEDS ORDERED: SODIUM CHLORIDE 0.9% 500 ML IV STA (20:20)
[2021-07-19] MEDS ORDERED: methylPREDNISolone 125 MG/2 ML VIAL IV STA (20:20)
[2021-07-19] MEDS ORDERED: MAGNESIUM SULFATE / D5W 1 GM/100 ML BAG IV STA (20:21)
[2021-07-19 20:54] LABS: Basophils # (auto) 0.02 K/uL (0-0.2); Basophils % (auto) 0.1 %; Eosinophils # (auto) 0.07 K/uL (0-0.5); Eosinophils % (auto) 0.5 %; Hematocrit (blood only) 37.2 % (42-52); Hemoglobin 12.3 g/dL (14.0-18.0); Immature Granulocytes # (auto) 0.05 K/uL (0.00-0.02); Immature Granulocytes % (auto) 0.4 %; Lymphocytes # (auto) 0.87 K/uL (1.2-3.4); Lymphocytes % (auto) 6.4 %; Mean Corpuscular Hemoglobin 29.9 pg (25-34); Mean Corpuscular Hgb Conc 33.1 g/dL (32-36); Mean Corpuscular Volume 90.5 fL (80-100); Mean Platelet Volume 9.2 fL (7.4-10.4); Monocytes # (auto) 1.12 K/uL (0.11-0.59); Monocytes % (auto) 8.3 %; Neutrophils # (auto) 11.39 K/uL (1.4-6.5); Neutrophils % (auto) 84.3 %; Platelet Count 291 K/uL (130-400); RDW Coefficient of Variation 13.8 % (11.5-14.5); RDW Standard Deviation 46.4 fL (36.4-46.3); Red Blood Count 4.11 M/uL (4.7-6.1); White Blood Count 13.52 K/uL (4.8-10.8)
[2021-07-19 20:58] LABS: Base Excess VBG -0.9 mEq/L; HCO3 VBG 24 mmol/L; PCO2 VBG 42 mmHg (38-50); PO2 VBG 32 mmHg; pH VBG 7.38 (7.36-7.41)
[2021-07-19 21:00] LABS: Oxygen Saturation VBG < 60.0 %
[2021-07-19 21:06] LABS: Partial Thromboplastin Time 26.2 Seconds (21.0-31.0); Prothrombin Time 10.5 Seconds (9.0-12.0)
[2021-07-19 21:17] LABS: Troponin I < 0.03 ng/ml (0-0.04)
[2021-07-19 21:19] LABS: Alanine Aminotransferase 34 U/L (7-52); Albumin Globulin Ratio 0.9 (0.9-2); Albumin Level 3.3 gm/dl (3.4-5.0); Alkaline Phosphatase 62 U/L (34-104); Anion Gap 8 (3-11); Aspartate Aminotransferase 37 U/L (13-39); BUN Creatinine Ratio 19.3 (10-20); Bilirubin,Total 0.8 mg/dl (0.2-1.0); Blood Urea Nitrogen 23 mg/dl (6-23); Calcium 9.1 mg/dl (8.5-10.1); Carbon Dioxide 25 mmol/L (21-32); Chloride 104 mmol/L (98-107); Creatinine Clr Calc Pharmacy 79.7 ml/min; Est GFR (African American) 70.3 ml/min; Est GFR (Non-African American) 60.7 ml/min; Globulin 3.7 gm/dl (2.5-4.0); Glucose 118 mg/dl (70-99(Fasting)); Magnesium 1.6 mg/dl (1.7-2.4); Potassium 4.5 mmol/L (3.5-5.1); Sodium 137 mmol/L (136-145)
[2021-07-19] MEDS ORDERED: CEFEPIME 2,000 MG/20 ML VIAL IV STA (21:36)
[2021-07-19 21:50] LABS: Influenza B virus by PCR Negative (Neg); RSV by PCR Negative (Neg); SARS CoV2 RNA(COVID-19) InHosp NEGATIVE (Negative)
[2021-07-19 21:58] LABS: Influenza A virus by PCR Positive (Neg)
[2021-07-19] MEDS ORDERED: OSELTAMIVIR PHOSPHATE 75 MG CAP PO STA (21:58)
--- NOTE | 2021-07-19 22:43 | History & Physical Report ---
Date of Service July 19, 2021 Assessment & Plan (1) Influenza: Plan: 71yo male with COPD/Asthma presenting with 2.5 weeks of progressive SOB, dry cough as well as body aches and fatigue. Patient found to be POSITIVE for influenza A. He has not received his Influenza vaccine this year. Hypoxic on arrival now improved on supplemental O2. Presently saturating 93% on 8L/min. Most likely out of the window for benefit from Oseltamivir -Supportive care, supplemental O2 as needed, escalate to HFNC if needed -Maintain isolation precautions - droplet for influenza (2) Pneumonia: Plan: Suspect concomitant bacterial PNA given consolidation on CXR, elevation of procalcitonin -Follow cultures sent from ER -Check sputum culture -Continue Cefepime 2gm IV q 8 -Azithromycin -Tylenol as needed -Tessalon as needed (3) COPD (chronic obstructive pulmonary disease): Plan: Patient with COPD - on home Symbicort and Albuterol. Diffuse wheezing and diminished airflow on exam. Suspect COPD exacerbation in setting of influenza illness contributing to patient's SOB as well. -Supplemental O2 as needed - target saturations >92. Patient does not use home O2. -DuoNeb q 4 hours -Albuterol PRN -Solumedrol 40mg IV TID -Azithromycin -Tessalon -Flutter valve and incentive spirometry\ (4) Dyslipidemia: Plan: Chronic. -Continue Simvastatin 20mg po daily (5) HTN (hypertension): Plan: Chronic. Blood pressure elevated at present -Continue Lisinopril 20mg po daily -Monitor (6) Gait abnormality: Plan: Patient is reportedly quite immobile at home. He spends much of his time in his chair and has not been out of the house for over a year. He has some home nursing notes. Does not wish to receive PT here. Plan: F/E/N - LR at 80mL/hr x 2 liters, Mg x 1 gm given in ER, continue PO KCl - repeat chemistry in AM, Heart healthy diet as tolerated with aspiration precautions Ppx - Lovenox 40mg BID dosed for BMI of 40 Code - Full code per discussion with patient Dispo - Admit to medical History of Present Illness Chief Complaint: shortness of breath Primary Care Provider: Harlan Osorio MD Alton Arenas is a 71yo male with history of Asthma/COPD, HTN, GERD, JOSH presenting with 1.5 weeks of progressive shortness of breath, dry cough, body aches. Patient reports an elevated body temperature of 99.7 several days ago but has not had elevated temperatures recently. This evening he developed watery diarrhea. He was trying to go to the bathroom this evening when he lost his balance and fell. He denies chest pain, palpitations, head trauma or loss of consciousness. He was unable to get up so EMS was called. Upon arrival patient was found to be tachycardic, RR of 30 and saturation of 82% on room air. He does not wear oxygen at home. During my encounter patient was able to speak in complete sentences. No respiratory distress. Saturating 93% on 8L NC - did not wish to wear BiPAP mask. Laboratory workup significant for leukocytosis. Mild anemia with Hgb=12.3, Hct=37.2. Elevated Procalcitonin of 2.22 and POSITIVE for Influenza A. Patient did not receive his Covid-19 vaccinations nor his Influenza vaccines ER Course: Tamiflu 75mg, Cefepime 2gm, Solumedrol 60mg IV, Magnesium 1gm, NSS 500mL, Albuterol 12mL neb Allergies Allergy/AdvReac Type Severity Reaction Status Date / Time cheese Allergy Unknown SICK TO Verified 07/19/21 21:32 STOMACH Penicillins Allergy Unknown RASH Verified 07/19/21 21:32 Home Medications Medication Instructions Recorded Confirmed Type aspirin 81 mg tablet,delayed 81 mg PO QPM 03/07/19 07/19/21 History release (Adult Aspirin Regimen) multivitamin 1 tab PO DAILY 03/07/19 07/19/21 History Symbicort 160 mcg-4.5 2 puff INH BID #30.6 g NS 09/01/20 07/19/21 Rx mcg/actuation HFA aerosol inhaler (budesonide-formoterol) sertraline 50 mg tablet 50 mg PO DAILY #90 tab 09/19/20 07/19/21 Rx albuterol sulfate 90 mcg/actuation 1 - 2 puff INH Q4H PRN #54 gm 09/20/20 07/19/21 Rx aerosol inhaler (Ventolin HFA) lisinopril 20 mg tablet 20 mg PO DAILY #90 tab 03/02/21 07/19/21 Rx metformin 500 mg tablet 500 mg PO BID #180 tab 03/02/21 07/19/21 Rx simvastatin 20 mg tablet (Zocor) 20 mg PO QPM #90 tab 03/02/21 07/19/21 Rx furosemide 20 mg tablet 20 mg PO DAILY #90 tab 06/22/21 07/19/21 Rx potassium chloride 10 mEq 10 meq PO DAILY #90 cap 06/22/21 07/19/21 Rx capsule,extended release Past Med/Surg History Medical History Asthma COPD (chronic obstructive pulmonary disease) Diverticulosis Dyslipidemia GERD (gastroesophageal reflux disease) HTN (hypertension) Sleep apnea Surgical History H/O inguinal hernia repair H/O oral surgery History of throat surgery for sleep apnea- Dr. Arriola S/P partial colectomy S/P tonsillectomy and adenoidectomy Family History Other Adopted Family history unknown Social History Smoking Status: Former smoker Tobacco Type: Cigarettes Second Hand Exposure: No; Do You Dip or Chew Tobacco: No; Tobacco Cessation Education Requested by Patient: Yes Hx Alcohol Use: No Hx Substance Use: No Preferred Language: Tamaz[place] Communication Ability: Effective Visual Impairment: No Limitations Hearing Ability: Normal Document Review Specialist Required: No Beliefs That Will Affect Care: None marital status: Current Living Situation: Spouse and Family current occupational status: unemployed and disabled Other Information That Helps Us Care for You: No Feels Safe at Home: No Is there a partner from a previous relationship who is making you feel unsafe now?: No Any Concerns about Your Family Situation: No Would You Like to Speak to Someone About Your Situation: No Safety Concerns: Feels Safe At This Time Childhood Exposure to Second-Hand Smoke: Yes during the past year weight has: remained stable Dental Care, Regularly: No Physical Activity Frequency: Does not Exercise Seatbelt Use: always Sunscreen Use: No Review of Systems Review of Systems: All systems reviewed & are unremarkable except as noted in HPI & below Decreased oral intake over the last 2 weeks Body aches Subjective fever Dry cough Diarrhea Physical Exam Physical Exam: General: patient resting comfortably, NAD, ill in appearance, AA&O x 4 Skin: warm, dry, intact, chronic venous stasis changes of bilateral LE with dermatitis HEENT: NC/AT, PERRL, EOMI, anicteric sclera, conjunctiva without injection, external ear normal to inspection and nontender, nares patent, moist mucus membranes, dentition intact, no oropharyngeal lesions, neck supple, trachea midline, no LAD, no thyromegaly, no JVD Heart: +S1/S2, regular, tachycardic, no m/r/g Lungs: diminished air flow bilaterally, diffuse end-expiratory wheezing, +crackles in left base and left mid-lung, no rhonchi Abd: +BS, soft, NT/ND, no masses/organomegaly/ascites Ext: warm, 2+ pulses in UE/LE bilaterally, no clubbing/cyanosis, chronic venous stasis changes with 1+ edema bilaterally Neuro: nonfocal, patient AA&O x 4, speech intact, no facial droop, moving all extremities on command with equal strength 5/5 Results & Data Results & Data ([facility]) Vital Signs (Past 12 Hours) Vital Signs Temp Pulse Pulse Resp BP BP Pulse Ox 07/19/21 22:21 135 H 186/109 H 93 07/19/21 21:51 93 07/19/21 21:03 94 H 19 94 07/19/21 20:12 36.5 C 123 H 123 H 26 H 108/80 108/80 92 Laboratory Results Laboratory Results WBC 13.52 K/uL (4.8-10.8) H 07/19/21 20:34 RBC 4.11 M/uL (4.7-6.1) L 07/19/21 20:34 Hgb 12.3 g/dL (14.0-18.0) L 07/19/21 20:34 Hct 37.2 % (42-52) L 07/19/21 20:34 MCV 90.5 fL (80-100) 07/19/21 20:34 MCH 29.9 pg (25-34) 07/19/21 20:34 MCHC 33.1 g/dL (32-36) 07/19/21 20:34 RDW Std Deviation 46.4 fL (36.4-46.3) H 07/19/21 20:34 RDW Coeff of Jocelyn 13.8 % (11.5-14.5) 07/19/21:34 Plt Count 291 K/uL (130-400) 07/19/21: MPV 9.2 fL (7.4-10.4) 07/19/21 20:34 Immature Gran % (Auto) 0.4 % 07/19/21: Neut % (Auto) 84.3 % 07/19/21 20: Lymph % (Auto) 6.4 % 07/19/21:34 Woods % (Auto) 8.3 % 07/19/21 20:34 Eos % (Auto) 0.5 % 07/19/21:34 Baso % (Auto) 0.1 % 07/19/21: Neut # (Auto) 11.39 K/uL (1.4-6.5) H 07/19/21:34 Lymph # (Auto) 0.87 K/uL (1.2-3.4) L 07/19/21: Woods # (Auto) 1.12 K/uL (0.11-0.59) H 07/19/21 20:34 Eos # (Auto) 0.07 K/uL (0-0.5) 07/19/21: Baso # (Auto) 0.02 K/uL (0-0.2) 07/19/21: Immature Gran # (Auto) 0.05 K/uL (0.00-0.02) H 07/19/21: PT 10.5 Seconds (9.0-12.0) 07/19/21: INR 1.0 (0.9-1.1) 07/19/21: APTT 26.2 Seconds (21.0-31.0) 07/19/21: PTT Ratio 1.0 07/19/21: VBG pH 7.38 (7.36-7.41) 07/19/21: VBG pCO2 42 mmHg (38-50) 07/19/21: VBG pO2 32 mmHg 07/19/21: VBG HCO3 24 mmol/L 07/19/21: VBG O2 Saturation < 60.0 % 07/19/21: VBG Base Excess -0.9 mEq/L 07/19/21 20:34 Barometric Pressure 727.6 mm/Hg 07/19/21 20:34 Sodium 137 mmol/L (136-145) 07/19/21 20:34 Potassium 4.5 mmol/L (3.5-5.1) 07/19/21 20:34 Chloride 104 mmol/L (98-107) 07/19/21 20:34 Carbon Dioxide 25 mmol/L (21-32) 07/19/21 20:34 Anion Gap 8 (3-11) 07/19/21 20:34 BUN 23 mg/dl (6-23) 07/19/21 20:34 Creatinine 1.19 mg/dl (0.6-1.4) 07/19/21 20:34 Est Cr Clr Drug Dosing 79.7 ml/min 07/19/21 20:34 Est GFR ( Amer) 70.3 ml/min 07/19/21 20:34 Est GFR (Non-Af Amer) 60.7 ml/min 07/19/21 20:34 BUN/Creatinine Ratio 19.3 (10-20) 07/19/21 20:34 Glucose 118 mg/dl (70-99(Fasting)) H 07/19/21 20:34 Lactate 1.6 mmol/L (0.4-2.0) 07/19/21 20:34 Calcium 9.1 mg/dl (8.5-10.1) 07/19/21 20:34 Magnesium 1.6 mg/dl (1.7-2.4) L 07/19/21 20:34 Total Bilirubin 0.8 mg/dl (0.2-1.0) 07/19/21 20:34 AST 37 U/L (13-39) 07/19/21 20:34 ALT 34 U/L (7-52) 07/19/21 20:34 Alkaline Phosphatase 62 U/L (34-104) 07/19/21 20:34 Troponin I < 0.03 ng/ml (0-0.04) 07/19/21 20:34 Total Protein 7.0 gm/dl (6.0-8.3) 07/19/21 20:34 Albumin 3.3 gm/dl (3.4-5.0) L 07/19/21 20:34 Globulin 3.7 gm/dl (2.5-4.0) 07/19/21 20:34 Albumin/Globulin Ratio 0.9 (0.9-2) 07/19/21 20:34 Procalcitonin 2.27 ng/ml (0-0.5) H 07/19/21 20:34 SARS-CoV-2 (PCR) NEGATIVE (Negative) 07/19/21 21:03 Influenza Type A (PCR) Positive (Neg) A* 07/19/21 21:03 Influenza Type B (PCR) Negative (Neg) 07/19/21 21:03 RSV (RT-PCR) Negative (Neg) 07/19/21 21:03 Diagnostic Findings CXR by my interpretation - trachea is midline and air-filled, cardiac silhouette within normal limits, no effusions, bilateral airspace opacities most notable in RUL and RLL, right consolidation Code Status & VTE Plan VTE Prophylaxis Plan VTE Prophylaxis will be ordered: Yes PG Care Time/CCT Total # of Minutes Spent Total Time Spent with Patient: Total time spent is greater than 50% in coordination of care (as documented) at patient's floor/unit and/or counseling patient: Coding Level of Care Code 81169 Initial Inpt Care Lvl 3 Diagnoses COPD (chronic obstructive pulmonary disease) J44.9 Dyslipidemia E78.5 HTN (hypertension) I10 Gait abnormality R26.9 Influenza J11.1 Pneumonia J18.9
[2021-07-19] MEDS ORDERED: AZITHROMYCIN 500 MG in DEXTROSE 5% 250 ML IV STA (23:36)
[2021-07-19] MEDS ORDERED: DEXTROSE 50% 50 ML SYRINGE IV PRN (23:58)
[2021-07-19] MEDS ORDERED: GLUCAGON FOR INJ 1 MG VIAL SQ PRN (23:58)
[2021-07-19] MEDS ORDERED: GLUCOSE 10 TABS/TUBE PO PRN (23:58)
[2021-07-19] MEDS ORDERED: ALBUTEROL HFA 8 GM INHALER INH PRN (23:58)
[2021-07-19] MEDS ORDERED: BENZONATATE 100 MG CAPSULE PO PRN (23:58)
[2021-07-19] MEDS ORDERED: ACETAMINOPHEN 325 MG TAB PO PRN (23:58)
[2021-07-19] MEDS ORDERED: ONDANSETRON INJ 2 MG/ML 2 ML VIAL IV PRN (23:58)
[2021-07-19] MEDS ORDERED: GLUCOSE 40% GEL 15 GM TUBE PO PRN (23:58)
[2021-07-19] MEDS ORDERED: CARBOHYDRATES FOR HYPOGLYCEMIA PO PRN (23:58)
[2021-07-20] MEDS: ALBUT/IPRATROP 3MG/0.5MG NEB 3 ML VIAL NEB SCH ×7 (00:40→23:46)
[2021-07-20] MEDS: LACTATED RINGER'S 1,000 ML IV SCH ×2 (00:46→13:20)
[2021-07-20] MEDS: ENOXAPARIN INJ 40 MG/0.4 ML SYR SQ SCH ×3 (00:46→20:39)
[2021-07-20] MEDS: methylPREDNISolone 40 MG in SYRINGE 0 ML IV SCH ×3 (05:52→20:44)
[2021-07-20] MEDS: CEFEPIME 2,000 MG in SYRINGE 0 ML IV SCH ×2 (05:52→13:20)
[2021-07-20 06:46] LABS: Basophils # (auto) 0.02 K/uL (0-0.2); Basophils % (auto) 0.2 %; Hematocrit (blood only) 35.8 % (42-52); Hemoglobin 11.6 g/dL (14.0-18.0); Immature Granulocytes # (auto) 0.08 K/uL (0.00-0.02); Immature Granulocytes % (auto) 0.7 %; Lymphocytes # (auto) 0.92 K/uL (1.2-3.4); Lymphocytes % (auto) 8.6 %; Mean Corpuscular Hgb Conc 32.4 g/dL (32-36); Mean Corpuscular Volume 89.5 fL (80-100); Mean Platelet Volume 9.2 fL (7.4-10.4); Monocytes # (auto) 0.34 K/uL (0.11-0.59); Monocytes % (auto) 3.2 %; Neutrophils # (auto) 9.34 K/uL (1.4-6.5); Neutrophils % (auto) 87.3 %; Platelet Count 278 K/uL (130-400); RDW Coefficient of Variation 13.7 % (11.5-14.5); RDW Standard Deviation 45.5 fL (36.4-46.3)
[2021-07-20 07:13] LABS: BUN Creatinine Ratio 22.3 (10-20); Calcium 8.7 mg/dl (8.5-10.1); Creatinine Clr Calc Pharmacy 91.1 ml/min; Est GFR (African American) 83.7 ml/min; Est GFR (Non-African American) 72.2 ml/min; Magnesium 1.9 mg/dl (1.7-2.4); Potassium 4.6 mmol/L (3.5-5.1)
[2021-07-20 07:55] LABS: Appearance Urine Cloudy (Clear); Bacteria Urine Automated Negative (Negative); Bilirubin Urine Negative (Negative); Blood Urine Negative (Negative); Color Urine Yellow; Epithelial Cell Urine Auto 20-30 /lpf (0-5); Glucose Urine UA Negative (Negative); Ketones Urine 1+ (Negative); Leukocyte Esterase Urine Negative (Negative); Nitrite Urine Negative (Negative); Protein Urine Negative (Negative); Specific Gravity Urine 1.021 (1.000-1.030); Urobilinogen Urine Negative (Negative)
--- NOTE | 2021-07-20 08:11 | Hospitalist Progress Note ---
Date of Service July 20, 2021 Assessment & Plan (1) Influenza: Plan: 71yo male with COPD/Asthma presenting with 2.5 weeks of progressive SOB, dry cough as well as body aches and fatigue. Patient found to be POSITIVE for influenza A. He has not received his Influenza vaccine this year. -- has grandson visit on the weekend who also tested + for influenza A (2 weekends ago was visiting) RSV/COVID negative Hypoxic on arrival now improved on supplemental O2 and had been 93% on 8L/min Most likely out of the window for benefit from Oseltamivir -- did get dose in ER on admit LR @ 80cc/hr -- discontinued as keeping up with oral now that pneumonia treated and feeling better, not dehydrated on examination Had been up to 7-8L NC overnight into this morning --> able to titrate to 3L this afternoon with SpO2 91-92% --> supplemental O2 as needed Maintain isolation precautions - droplet for influenza --> tx for pneumonia/COPD exacerbation as below (2) Pneumonia: Plan: Suspect concomitant bacterial PNA given consolidation on CXR, elevation of procalcitonin 2.27. Lactic 1.6 wnl * Blood culture on admission --> follow * Sputum culture ordered -- follow once able to provide sample * Cefepime/Azithromycin continued * Solumedrol IV for COPD exacerbation as below as well * Incentive spirometer, flutter valve * Tylenol, tessalon pearls prn * Supplemental O2 to maintain saturations --> would 2 step prior to discharge (3) COPD (chronic obstructive pulmonary disease): Plan: Patient with COPD - on home Symbicort and Albuterol. Diffuse wheezing and diminished airflow on exam. Suspect COPD exacerbation in setting of influenza illness contributing to patient's SOB as well. * Supplemental O2 as needed - target saturations >92. Patient does not use home O2. * DuoNeb q 4 hours, Albuterol PRN * Solumedrol 40mg IV TID -- can change to prednisone tomorrow if continues with improvement but will continue IV for now * Azithromycin as above for exacerbation but also pneumonia * Tessalon pearls prn * Sputum cx if able to produce * Added mucinex BID to help * Incentive spirometer, flutter valve * --> had still had incentive spirometer in bag upon evaluation. Opened and had patient demonstrate use and encouraged continued use and also to take at d/c to continue to help with lung function/aeration would 2 step prior to discharge Of note, would also not be surprised if patient also with degree of underlying sleep apnea/OHS given body habitus and chronic fatigue/daytime somnolence (4) Dyslipidemia: Plan: * Chronic. * Continue Simvastatin 20mg po daily (5) HTN (hypertension): Plan: * Chronic. * BP 133/64 * Continue lisinopril 20mg daily, lasix 20mg daily * Monitor (6) Gait abnormality: Plan: Patient is reportedly quite immobile at home. He spends much of his time in his chair and has not been out of the house for over a year. He has some home nursing notes. Does not wish to receive PT here. * How did he get the influenza? Visiting home nursing? --> Grandson had been visiting, then tested + for influenza * Still adamantly refusing therapy eval or possibility for home therapy at this time * --> Has been quite immobile. Had Venous Doppler B/L LE last year with same issue/swelling that was negative * --> Did have some trauma with recliner chair but pulses palpable but diminshed * --> Will check Venous Doppler for completeness to r/o DVT * Will also consult wound RN as well for LEs * On Lovenox SQ BID for DVT Prophylaxis as ordered on admission * B12 wnl 598. TSH wnl (7) HARDIN (dyspnea on exertion): Plan: * likely from above as well as deconditioning. trop negative on admission * also with LE edema which is reportedly chronic * never had echo in past --> ordered --> normal LV size/systolic function. EF 60-65%, No regional wma. Mild LVH. No significant valvular stenosis or regurgitation. Type I diastolic dysfunction * Tx with above * Monitor (8) Hypomagnesemia: Plan: * mag 1.6 on admission. 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 sputum cx ordered but not collected at this time Admission and Anticipated Discharge Date Admission Date: July 19, 2021 Supervising Physician Co-Signing Physician Notes PA Supervision Note: I did not personally see or examine the patient today, but I verified all gilman points of GELY Carlisle's assessment and plan with the following exceptions/additions: None Subjective patient evaluated this afternoon states breathing improved currently on 7L NC but SpO2 98%. Asked RN to wean this afternoon. Has been eating/drinking no issue. Will stop IVF Chronic wounds to b/l LE, optifoam to lateral R lower extremity from seeping. He notes chronic issues for several weeks-months and had wound care nurse visit. He is in chair most of the time at home (recliner) and had old one and worn out the metal on the foot rest and his put it up abruptly and cut his legs on the back. Per PCP note, had supposed to get Venous Dopplers for LE edema and ECHO. Venous Doppler at that time negative for b/l DVT. Never had ECHO but did note tech was just in room Review of Systems Review of Systems: All systems reviewed & are unremarkable except as noted in HPI & below Physical Exam Physical Exam: General: patient resting comfortably in bed, sitting upright, no acute distress, occasional cough noted, poor hygiene Skin: warm, dry but with chronic venous stasis changes with scabbing b/l LE with dermatitis as well as skin tear to lateral aspect of RLE ENT: mmm, trachea midline without deviation Resp: diffuse end expiratory wheezing, crackles LLL, no rhonchi, 91% on 3L currently CV: RRR, S1/S2, no m/r/g, chronic 1-2+ BL LE edema, pulses palpable, good cap refill GI: +BS throughout, soft, nontender : no Brown MSK/Neuro: moves all extremities, following commands, no facial droop/slurred speech, pulses palpable Results & Data Results & Data ([facility]) Vital Signs (Past 12 Hours) Vital Signs Temp Pulse Pulse Resp BP BP Pulse Ox 07/20/21 07:41 36.8 C 97 H 18 123/71 92 07/20/21 07:13 94 H 18 94 07/20/21 03:33 98 H 20 96 07/20/21 00:41 115 H 22 95 07/19/21 23:47 37.2 C 110 H 24 123/72 94 07/19/21 22:21 135 H 186/109 H 93 07/19/21 21:51 93 07/19/21 21:03 94 H 19 94 07/19/21 20:12 36.5 C 123 H 123 H 26 H 108/80 108/80 92 Laboratory Results 07/20/21 07/20/21 07/20/21 Range/Units 12:20 12:20 12:20 WBC (4.8-10.8) K/uL RBC (4.7-6.1) M/uL Hgb (14.0-18.0) g/dL Hct (42-52) % MCV (80-100) fL MCH (25-34) pg MCHC (32-36) g/dL RDW Std Deviation (36.4-46.3) fL RDW Coeff of Jocelyn (11.5-14.5) % Plt Count (130-400) K/uL MPV (7.4-10.4) fL Immature Gran % (Auto) % Neut % (Auto) % Lymph % (Auto) % [place] % (Auto) % Eos % (Auto) % Baso % (Auto) % Neut # (Auto) (1.4-6.5) K/uL Lymph # (Auto) (1.2-3.4) K/uL [place] # (Auto) (0.11-0.59) K/uL Eos # (Auto) (0-0.5) K/uL Baso # (Auto) (0-0.2) K/uL Immature Gran # (Auto) (0.00-0.02) K/uL PT (9.0-12.0) Seconds INR (0.9-1.1) APTT (21.0-31.0) Seconds PTT Ratio VBG pH (7.36-7.41) VBG pCO2 (38-50) mmHg VBG pO2 mmHg VBG HCO3 mmol/L VBG O2 Saturation % VBG Base Excess mEq/L Barometric Pressure mm/Hg Sodium (136-145) mmol/L Potassium (3.5-5.1) mmol/L Chloride (98-107) mmol/L Carbon Dioxide (21-32) mmol/L Anion Gap (3-11) BUN (6-23) mg/dl Creatinine (0.6-1.4) mg/dl Est Cr Clr Drug Dosing ml/min Est GFR ( Amer) ml/min Est GFR (Non-Af Amer) ml/min BUN/Creatinine Ratio (10-20) Glucose (70-99(Fasting)) mg/dl POC Glucose (70-99) mg/dl Lactate (0.4-2.0) mmol/L Calcium (8.5-10.1) mg/dl Magnesium (1.7-2.4) mg/dl Total Bilirubin (0.2-1.0) mg/dl AST (13-39) U/L ALT (7-52) U/L Alkaline Phosphatase (34-104) U/L Troponin I (0-0.04) ng/ml B-Natriuretic Peptide 92 (0-100) pg/ml Total Protein (6.0-8.3) gm/dl Albumin (3.4-5.0) gm/dl Globulin (2.5-4.0) gm/dl Albumin/Globulin Ratio (0.9-2) Vitamin B12 (211-911) pg/ml Procalcitonin (0-0.5) ng/ml TSH 0.420 (0.300-4.500) uIu/ml Urine Color Urine Appearance (Clear) Urine pH (4.5-7.5) Ur Specific [place] (1.000-1.030) Urine Protein (Negative) Urine Glucose (UA) (Negative) Urine Ketones (Negative) Urine Blood (Negative) Urine Nitrite (Negative) Urine Bilirubin (Negative) Urine Urobilinogen (Negative) Ur Leukocyte Esterase (Negative) Urine WBC (Auto) (0-5) /hpf Urine RBC (Auto) (0-4) /hpf U Hyaline Cast (Auto) (0-5) /lpf U Epithel Cells (Auto) (0-5) /lpf Urine Bacteria (Auto) (Negative) Lyme Disease IgG Ab Negative (Negative) Lyme Disease IgM Ab Negative (Negative) SARS-CoV-2 (PCR) (Negative) Influenza Type A (PCR) (Neg) Influenza Type B (PCR) (Neg) RSV (RT-PCR) (Neg) 07/20/21 07/20/21 07/20/21 Range/Units 12:20 12:04 07:41 WBC (4.8-10.8) K/uL RBC (4.7-6.1) M/uL Hgb (14.0-18.0) g/dL Hct (42-52) % MCV (80-100) fL MCH (25-34) pg MCHC (32-36) g/dL RDW Std Deviation (36.4-46.3) fL RDW Coeff of Jocelyn (11.5-14.5) % Plt Count (130-400) K/uL MPV (7.4-10.4) fL Immature Gran % (Auto) % Neut % (Auto) % Lymph % (Auto) % [place] % (Auto) % Eos % (Auto) % Baso % (Auto) % Neut # (Auto) (1.4-6.5) K/uL Lymph # (Auto) (1.2-3.4) K/uL [place] # (Auto) (0.11-0.59) K/uL Eos # (Auto) (0-0.5) K/uL Baso # (Auto) (0-0.2) K/uL Immature Gran # (Auto) (0.00-0.02) K/uL PT (9.0-12.0) Seconds INR (0.9-1.1) APTT (21.0-31.0) Seconds PTT Ratio VBG pH (7.36-7.41) VBG pCO2 (38-50) mmHg VBG pO2 mmHg VBG HCO3 mmol/L VBG O2 Saturation % VBG Base Excess mEq/L Barometric Pressure mm/Hg Sodium (136-145) mmol/L Potassium (3.5-5.1) mmol/L Chloride (98-107) mmol/L Carbon Dioxide (21-32) mmol/L Anion Gap (3-11) BUN (6-23) mg/dl Creatinine (0.6-1.4) mg/dl Est Cr Clr Drug Dosing ml/min Est GFR ( Amer) ml/min Est GFR (Non-Af Amer) ml/min BUN/Creatinine Ratio (10-20) Glucose (70-99(Fasting)) mg/dl POC Glucose 193 H (70-99) mg/dl Lactate (0.4-2.0) mmol/L Calcium (8.5-10.1) mg/dl Magnesium (1.7-2.4) mg/dl Total Bilirubin (0.2-1.0) mg/dl AST (13-39) U/L ALT (7-52) U/L Alkaline Phosphatase (34-104) U/L Troponin I (0-0.04) ng/ml B-Natriuretic Peptide (0-100) pg/ml Total Protein (6.0-8.3) gm/dl Albumin (3.4-5.0) gm/dl Globulin (2.5-4.0) gm/dl Albumin/Globulin Ratio (0.9-2) Vitamin B12 598 (211-911) pg/ml Procalcitonin (0-0.5) ng/ml TSH (0.300-4.500) uIu/ml Urine Color Yellow Urine Appearance Cloudy A (Clear) Urine pH 5.0 (4.5-7.5) Ur Specific [place] 1.021 (1.000-1.030) Urine Protein Negative (Negative) Urine Glucose (UA) Negative (Negative) Urine Ketones 1+ H (Negative) Urine Blood Negative (Negative) Urine Nitrite Negative (Negative) Urine Bilirubin Negative (Negative) Urine Urobilinogen Negative (Negative) Ur Leukocyte Esterase Negative (Negative) Urine WBC (Auto) 1-5 (0-5) /hpf Urine RBC (Auto) 5-10 H (0-4) /hpf U Hyaline Cast (Auto) 5-10 H (0-5) /lpf U Epithel Cells (Auto) 20-30 H (0-5) /lpf Urine Bacteria (Auto) Negative (Negative) Lyme Disease IgG Ab (Negative) Lyme Disease IgM Ab (Negative) SARS-CoV-2 (PCR) (Negative) Influenza Type A (PCR) (Neg) Influenza Type B (PCR) (Neg) RSV (RT-PCR) (Neg) 07/20/21 07/20/21 07/19/21 Range/Units 06:10 06:10 21:03 WBC 10.70 (4.8-10.8) K/uL RBC 4.00 L (4.7-6.1) M/uL Hgb 11.6 L (14.0-18.0) g/dL Hct 35.8 L (42-52) % MCV 89.5 (80-100) fL MCH 29.0 (25-34) pg MCHC 32.4 (32-36) g/dL RDW Std Deviation 45.5 (36.4-46.3) fL RDW Coeff of Jocelyn 13.7 (11.5-14.5) % Plt Count 278 (130-400) K/uL MPV 9.2 (7.4-10.4) fL Immature Gran % (Auto) 0.7 % Neut % (Auto) 87.3 % Lymph % (Auto) 8.6 % [place] % (Auto) 3.2 % Eos % (Auto) 0.0 % Baso % (Auto) 0.2 % Neut # (Auto) 9.34 H (1.4-6.5) K/uL Lymph # (Auto) 0.92 L (1.2-3.4) K/uL [place] # (Auto) 0.34 (0.11-0.59) K/uL Eos # (Auto) 0.00 (0-0.5) K/uL Baso # (Auto) 0.02 (0-0.2) K/uL Immature Gran # (Auto) 0.08 H (0.00-0.02) K/uL PT (9.0-12.0) Seconds INR (0.9-1.1) APTT (21.0-31.0) Seconds PTT Ratio VBG pH (7.36-7.41) VBG pCO2 (38-50) mmHg VBG pO2 mmHg VBG HCO3 mmol/L VBG O2 Saturation % VBG Base Excess mEq/L Barometric Pressure mm/Hg Sodium 134 L (136-145) mmol/L Potassium 4.6 (3.5-5.1) mmol/L Chloride 104 (98-107) mmol/L Carbon Dioxide 21 (21-32) mmol/L Anion Gap 9 (3-11) BUN 23 (6-23) mg/dl Creatinine 1.03 (0.6-1.4) mg/dl Est Cr Clr Drug Dosing 91.1 ml/min Est GFR ( Amer) 83.7 ml/min Est GFR (Non-Af Amer) 72.2 ml/min BUN/Creatinine Ratio 22.3 H (10-20) Glucose 221 H (70-99(Fasting)) mg/dl POC Glucose (70-99) mg/dl Lactate (0.4-2.0) mmol/L Calcium 8.7 (8.5-10.1) mg/dl Magnesium 1.9 (1.7-2.4) mg/dl Total Bilirubin (0.2-1.0) mg/dl AST (13-39) U/L ALT (7-52) U/L Alkaline Phosphatase (34-104) U/L Troponin I (0-0.04) ng/ml B-Natriuretic Peptide (0-100) pg/ml Total Protein (6.0-8.3) gm/dl Albumin (3.4-5.0) gm/dl Globulin (2.5-4.0) gm/dl Albumin/Globulin Ratio (0.9-2) Vitamin B12 (211-911) pg/ml Procalcitonin (0-0.5) ng/ml TSH (0.300-4.500) uIu/ml Urine Color Urine Appearance (Clear) Urine pH (4.5-7.5) Ur Specific [place] (1.000-1.030) Urine Protein (Negative) Urine Glucose (UA) (Negative) Urine Ketones (Negative) Urine Blood (Negative) Urine Nitrite (Negative) Urine Bilirubin (Negative) Urine Urobilinogen (Negative) Ur Leukocyte Esterase (Negative) Urine WBC (Auto) (0-5) /hpf Urine RBC (Auto) (0-4) /hpf U Hyaline Cast (Auto) (0-5) /lpf U Epithel Cells (Auto) (0-5) /lpf Urine Bacteria (Auto) (Negative) Lyme Disease IgG Ab (Negative) Lyme Disease IgM Ab (Negative) SARS-CoV-2 (PCR) NEGATIVE (Negative) Influenza Type A (PCR) Positive A* (Neg) Influenza Type B (PCR) Negative (Neg) RSV (RT-PCR) Negative (Neg) 07/19/21 07/19/21 07/19/21 Range/Units 20:34 20:34 20:34 WBC (4.8-10.8) K/uL RBC (4.7-6.1) M/uL Hgb (14.0-18.0) g/dL Hct (42-52) % MCV (80-100) fL MCH (25-34) pg MCHC (32-36) g/dL RDW Std Deviation (36.4-46.3) fL RDW Coeff of Jocelyn (11.5-14.5) % Plt Count (130-400) K/uL MPV (7.4-10.4) fL Immature Gran % (Auto) % Neut % (Auto) % Lymph % (Auto) % [place] % (Auto) % Eos % (Auto) % Baso % (Auto) % Neut # (Auto) (1.4-6.5) K/uL Lymph # (Auto) (1.2-3.4) K/uL [place] # (Auto) (0.11-0.59) K/uL Eos # (Auto) (0-0.5) K/uL Baso # (Auto) (0-0.2) K/uL Immature Gran # (Auto) (0.00-0.02) K/uL PT (9.0-12.0) Seconds INR (0.9-1.1) APTT (21.0-31.0) Seconds PTT Ratio VBG pH 7.38 (7.36-7.41) VBG pCO2 42 (38-50) mmHg VBG pO2 32 mmHg VBG HCO3 24 mmol/L VBG O2 Saturation < 60.0 % VBG Base Excess -0.9 mEq/L Barometric Pressure 727.6 mm/Hg Sodium (136-145) mmol/L Potassium (3.5-5.1) mmol/L Chloride (98-107) mmol/L Carbon Dioxide (21-32) mmol/L Anion Gap (3-11) BUN (6-23) mg/dl Creatinine (0.6-1.4) mg/dl Est Cr Clr Drug Dosing ml/min Est GFR ( Amer) ml/min Est GFR (Non-Af Amer) ml/min BUN/Creatinine Ratio (10-20) Glucose (70-99(Fasting)) mg/dl POC Glucose (70-99) mg/dl Lactate 1.6 (0.4-2.0) mmol/L Calcium (8.5-10.1) mg/dl Magnesium (1.7-2.4) mg/dl Total Bilirubin (0.2-1.0) mg/dl AST (13-39) U/L ALT (7-52) U/L Alkaline Phosphatase (34-104) U/L Troponin I (0-0.04) ng/ml B-Natriuretic Peptide (0-100) pg/ml Total Protein (6.0-8.3) gm/dl Albumin (3.4-5.0) gm/dl Globulin (2.5-4.0) gm/dl Albumin/Globulin Ratio (0.9-2) Vitamin B12 (211-911) pg/ml Procalcitonin 2.27 H (0-0.5) ng/ml TSH (0.300-4.500) uIu/ml Urine Color Urine Appearance (Clear) Urine pH (4.5-7.5) Ur Specific [place] (1.000-1.030) Urine Protein (Negative) Urine Glucose (UA) (Negative) Urine Ketones (Negative) Urine Blood (Negative) Urine Nitrite (Negative) Urine Bilirubin (Negative) Urine Urobilinogen (Negative) Ur Leukocyte Esterase (Negative) Urine WBC (Auto) (0-5) /hpf Urine RBC (Auto) (0-4) /hpf U Hyaline Cast (Auto) (0-5) /lpf U Epithel Cells (Auto) (0-5) /lpf Urine Bacteria (Auto) (Negative) Lyme Disease IgG Ab (Negative) Lyme Disease IgM Ab (Negative) SARS-CoV-2 (PCR) (Negative) Influenza Type A (PCR) (Neg) Influenza Type B (PCR) (Neg) RSV (RT-PCR) (Neg) 07/19/21 07/19/21 07/19/21 Range/Units 20:34 20:34 20:34 WBC 13.52 H (4.8-10.8) K/uL RBC 4.11 L (4.7-6.1) M/uL Hgb 12.3 L (14.0-18.0) g/dL Hct 37.2 L (42-52) % MCV 90.5 (80-100) fL MCH 29.9 (25-34) pg MCHC 33.1 (32-36) g/dL RDW Std Deviation 46.4 H (36.4-46.3) fL RDW Coeff of Jocelyn 13.8 (11.5-14.5) % Plt Count 291 (130-400) K/uL MPV 9.2 (7.4-10.4) fL Immature Gran % (Auto) 0.4 % Neut % (Auto) 84.3 % Lymph % (Auto) 6.4 % [place] % (Auto) 8.3 % Eos % (Auto) 0.5 % Baso % (Auto) 0.1 % Neut # (Auto) 11.39 H (1.4-6.5) K/uL Lymph # (Auto) 0.87 L (1.2-3.4) K/uL [place] # (Auto) 1.12 H (0.11-0.59) K/uL Eos # (Auto) 0.07 (0-0.5) K/uL Baso # (Auto) 0.02 (0-0.2) K/uL Immature Gran # (Auto) 0.05 H (0.00-0.02) K/uL PT 10.5 (9.0-12.0) Seconds INR 1.0 (0.9-1.1) APTT 26.2 (21.0-31.0) Seconds PTT Ratio 1.0 VBG pH (7.36-7.41) VBG pCO2 (38-50) mmHg VBG pO2 mmHg VBG HCO3 mmol/L VBG O2 Saturation % VBG Base Excess mEq/L Barometric Pressure mm/Hg Sodium 137 (136-145) mmol/L Potassium 4.5 (3.5-5.1) mmol/L Chloride 104 (98-107) mmol/L Carbon Dioxide 25 (21-32) mmol/L Anion Gap 8 (3-11) BUN 23 (6-23) mg/dl Creatinine 1.19 (0.6-1.4) mg/dl Est Cr Clr Drug Dosing 79.7 ml/min Est GFR ( Amer) 70.3 ml/min Est GFR (Non-Af Amer) 60.7 ml/min BUN/Creatinine Ratio 19.3 (10-20) Glucose 118 H (70-99(Fasting)) mg/dl POC Glucose (70-99) mg/dl Lactate (0.4-2.0) mmol/L Calcium 9.1 (8.5-10.1) mg/dl Magnesium 1.6 L (1.7-2.4) mg/dl Total Bilirubin 0.8 (0.2-1.0) mg/dl AST 37 (13-39) U/L ALT 34 (7-52) U/L Alkaline Phosphatase 62 (34-104) U/L Troponin I < 0.03 (0-0.04) ng/ml B-Natriuretic Peptide (0-100) pg/ml Total Protein 7.0 (6.0-8.3) gm/dl Albumin 3.3 L (3.4-5.0) gm/dl Globulin 3.7 (2.5-4.0) gm/dl Albumin/Globulin Ratio 0.9 (0.9-2) Vitamin B12 (211-911) pg/ml Procalcitonin (0-0.5) ng/ml TSH (0.300-4.500) uIu/ml Urine Color Urine Appearance (Clear) Urine pH (4.5-7.5) Ur Specific [place] (1.000-1.030) Urine Protein (Negative) Urine Glucose (UA) (Negative) Urine Ketones (Negative) Urine Blood (Negative) Urine Nitrite (Negative) Urine Bilirubin (Negative) Urine Urobilinogen (Negative) Ur Leukocyte Esterase (Negative) Urine WBC (Auto) (0-5) /hpf Urine RBC (Auto) (0-4) /hpf U Hyaline Cast (Auto) (0-5) /lpf U Epithel Cells (Auto) (0-5) /lpf Urine Bacteria (Auto) (Negative) Lyme Disease IgG Ab (Negative) Lyme Disease IgM Ab (Negative) SARS-CoV-2 (PCR) (Negative) Influenza Type A (PCR) (Neg) Influenza Type B (PCR) (Neg) RSV (RT-PCR) (Neg) Diagnostic Findings Chest X-Ray 07/19/21 20:20 XR chest 1V portable CLINICAL HISTORY: SEPSIS TECHNIQUE: Single frontal radiograph of the chest was obtained. Comparison: None available at the time of this dictation. FINDINGS: No lines and tubes are seen. The cardiomediastinal silhouette is normal. Multifocal airspace opacities are seen. These are most prominent in the right lower lung. No evidence of pleural effusion or pneumothorax. IMPRESSION: Multifocal airspace opacities may represent atelectasis, pneumonia, and/or aspiration. ACT 112: Negative or not required by law. Electronically signed by: James Pisano M.D. 07/20/2021 9:03 AM PG Care Time/CCT Total # of Minutes Spent Total Time Spent with Patient: Total time spent is greater than 50% in coordination of care (as documented) at patient's floor/unit and/or counseling patient: Coding Level of Care Code 44022 Subseq Hosp Care Lvl 3 Diagnoses Influenza J11.1 Pneumonia J18.9 COPD (chronic obstructive pulmonary disease) J44.9 Dyslipidemia E78.5 HTN (hypertension) I10 Gait abnormality R26.9 HARDIN (dyspnea on exertion) R06.00 Hypomagnesemia E83.42 Prediabetes R73.03
[2021-07-20] MEDS: FUROSEMIDE 20 MG TAB PO SCH (08:17)
[2021-07-20] MEDS: lisinopril 20 MG TAB PO SCH (08:17)
[2021-07-20] MEDS: FLUTICASONE/VILANTEROL 200/25MCG 14 PUFFS/INHALER INH SCH (08:17)
[2021-07-20] MEDS: POTASSIUM CHLORIDE 10 MEQ TABCR PO SCH (08:17)
[2021-07-20] MEDS: SERTRALINE HCL 50 MG TABLET PO SCH (08:17)
--- NOTE | 2021-07-20 09:04 | XRay Report ---
XR chest 1V portable CLINICAL HISTORY: SEPSIS TECHNIQUE: Single frontal radiograph of the chest was obtained. Comparison: None available at the time of this dictation. FINDINGS: No lines and tubes are seen. The cardiomediastinal silhouette is normal. Multifocal airspace opacitie s are seen. These are most prominent in the right lower lung. No evidence of pleural effusion or pneu mothorax. IMPRESSION: Multifocal airspace opacities may represent atelectasis, pneumonia, and/or aspiration. ACT 112: Negative or not required by law. Electronically signed by: James Pisano M.D. 07/20/2021 9:03 AM
[2021-07-20 13:36] LABS: Lyme Ab IgG w/WB Rflx Negative (Negative); Lyme Ab IgM w/WB Rflx Negative (Negative)
--- NOTE | 2021-07-20 15:42 | XCELERA ---
[id number]
[2021-07-20] MEDS: cefTRIAXone SODIUM 2,000 MG in DEXTROSE 5% 50 ML IV SCH (19:37)
[2021-07-20] MEDS: DOXYCYCLINE HYCLATE 100 MG in DEXTROSE 5% 100 ML IV SCH (19:37)
[2021-07-20] MEDS: INSULIN ASPART PER UNIT SC SCH (20:38)
[2021-07-20] MEDS: SIMVASTATIN 20 MG TAB PO SCH (20:38)
[2021-07-20] MEDS: ASPIRIN 81 MG ECTAB PO SCH (20:38)
[2021-07-20] MEDS: guaiFENesin 600 MG TABCR PO SCH (20:38)
[2021-07-20] MEDS ORDERED: AZITHROMYCIN 250 MG in DEXTROSE 5% 250 ML IV SCH (21:00)
--- NOTE | 2021-07-20 21:49 | Ultrasound Report ---
US venous doppler LE BI CLINICAL HISTORY: Leg swelling. Evaluate for DVT COMPARISON: None available at the time of this dictation. TECHNIQUE: Bilateral lower extremity real-time compression venous ultrasound with Color Doppler imagi ng. Utilizing real-time ultrasonic imaging multiple real time high-resolution ultrasonic images with comp ression and noncompression maneuvers of the deep venous system in addition to color doppler imaging w ere performed from the common femoral vein through the proximal calf veins. FINDINGS: Currently there is normal compressibility of the deep venous system from the common femoral vein thro ugh the proximal calf veins. No current evidence of acute thrombosis is identified. Impression: No evidence of deep venous thrombus. ACT 112: Negative or not required by law. Electronically signed by: Ehsan Gamino M.D. 07/20/2021 9:48 PM
[2021-07-21] MEDS: ALBUT/IPRATROP 3MG/0.5MG NEB 3 ML VIAL NEB SCH ×5 (03:09→19:55)
[2021-07-21] MEDS: methylPREDNISolone 40 MG in SYRINGE 0 ML IV SCH (06:06)
[2021-07-21 06:37] LABS: Basophils # (auto) 0.03 K/uL (0-0.2); Basophils % (auto) 0.2 %; Hematocrit (blood only) 34.4 % (42-52); Hemoglobin 11.3 g/dL (14.0-18.0); Immature Granulocytes # (auto) 0.21 K/uL (0.00-0.02); Immature Granulocytes % (auto) 1.5 %; Lymphocytes # (auto) 1.27 K/uL (1.2-3.4); Mean Corpuscular Hemoglobin 29.5 pg (25-34); Mean Corpuscular Hgb Conc 32.8 g/dL (32-36); Mean Corpuscular Volume 89.8 fL (80-100); Mean Platelet Volume 9.2 fL (7.4-10.4); Monocytes # (auto) 1.06 K/uL (0.11-0.59); Monocytes % (auto) 7.5 %; Neutrophils # (auto) 11.52 K/uL (1.4-6.5); Neutrophils % (auto) 81.8 %; Platelet Count 314 K/uL (130-400); RDW Standard Deviation 45.9 fL (36.4-46.3); Red Blood Count 3.83 M/uL (4.7-6.1); White Blood Count 14.09 K/uL (4.8-10.8)
--- NOTE | 2021-07-21 06:48 | Electrocardiogram Report ---
Test Reason : Blood Pressure : / mmHG Vent. Rate : 115 BPM Atrial Rate : 115 BPM P-R Int : 112 ms QRS Dur : 128 ms QT Int : 362 ms P-R-T Axes : 060 027 053 degrees QTc Int : 500 ms Poor data quality, interpretation may be adversely affected Sinus tachycardia Low voltage QRS Possible Inferior infarct Right bundle branch block Abnormal ECG When compared with ECG of 07-NOV-2016 12:19, Vent. rate has increased BY 46 BPM Right bundle branch block is now Present Confirmed by Mario Luna ([id number]) on 07/21/2021 6:48:30 AM Referred By: REFERRED SELF Confirmed By:Mario Luna
[2021-07-21 07:01] LABS: BUN Creatinine Ratio 24.5 (10-20); Creatinine Clr Calc Pharmacy 85.3 ml/min; Est GFR (African American) 77.3 ml/min; Est GFR (Non-African American) 66.7 ml/min; Potassium 4.3 mmol/L (3.5-5.1)
--- NOTE | 2021-07-21 08:19 | Hospitalist Progress Note ---
Date of Service July 21, 2021 Assessment & Plan (1) Bacteremia: Plan: 71yo male with COPD/Asthma presenting with 2.5 weeks of progressive SOB, dry cough as well as body aches and fatigue. Patient found to be POSITIVE for influenza A. Out of window for tamiflu, but did get 1 dose in ER Maintain isolation precautions - droplet for influenza He has not received his Influenza vaccine this year. -- has grandson visit on the weekend who also tested + for influenza A (2 weekends ago was visiting) RSV/COVID negative Blood cultures 1 bottle each set from admission GPC in clusters --> repeat pending Could be from pulmonary source given flu--> PNA on CXR * --> treating pneumonia for CAP to Ceftriaxone/Doxycycline to cover from Cefepime/Azithromycin as given on admission * MRSA nasal and PCR from BCx NEGATIVE Could also be from LE cellulitis vs open wound to R groin fold reported to have been draining in the past, no draining on examination today or abscess appreciated * --> Decreased erythema/tenderness on examination. Wound RN consulted as well (previously had home health RN visit for dressing changes after trauma from recliner --> Venous Dopplers NEGATIVE for DVT) -->Either way, Ceftriaxone/doxy to cover for staph/strep Restarted IVF NS @ 80cc/hr for some dehydration ECHO 07/20 done given HARDIN --> did not note any vegetation however was not specifically ordered for such WBC elevated but also getting steroids for COPD exacerbation. Afebrile Supportive care/electrolyte replacement --> tx for pneumonia/COPD exacerbation as below (2) Influenza: Plan: Supportive care, tx pneumonia as below (3) Pneumonia: Plan: Suspect concomitant bacterial PNA given consolidation on CXR, elevation of procalcitonin 2.27. Lactic 1.6 wnl * Blood culture on admission --> GPC as above, monitor and repeat pending * Sputum culture ordered -- follow once able to provide sample Cefepime/Azithromycin continued --> transitioned to Ceftriaxone/Doxy as above to cover for CAP/skin/soft tissue given bacteremia * Solumedrol IV for COPD exacerbation as below as well -- decrease dose today to 30mg TID * Incentive spirometer, flutter valve * Tylenol, tessalon pearls prn Hypoxic on arrival now improved on supplemental O2 and had been 93% on 8L/min --> titrated to 1L this morning but increased to 2L for comfort. added humidification Supplemental O2 to maintain saturations --> would 2 step prior to discharge (4) COPD (chronic obstructive pulmonary disease): Plan: Patient with COPD - on home Symbicort and Albuterol. Diffuse wheezing and diminished airflow on exam. Suspect COPD exacerbation in setting of influenza illness contributing to patient's SOB as well. Supplemental O2 as needed Patient does not use home O2 DuoNeb q 4 hours, Albuterol PRN Solu-medrol 40mg IV TID --> decrease to 30mg IV TID -- can change to prednisone tomorrow if continues with improvement but will continue IV for now Doxy as above for Atypicals Tessalon pearls prn Sputum cx if able to produce Mucinex BID, Flutter Valve, Incentive Spirometer Sputum cx if able to obtain would 2 step prior to discharge Of note, would also not be surprised if patient also with degree of underlying sleep apnea/OHS given body habitus and chronic fatigue/daytime somnolence Rec f/u with pulm at d/c (5) Dyslipidemia: Plan: Chronic. Continue Simvastatin 20mg po daily (6) HTN (hypertension): Plan: Chronic. BP 132/70 Continue lisinopril for BP but will hold lasix for AM as started back on some gentle IVF for mild dehydration Monitor (7) Gait abnormality: Plan: Patient is reportedly quite immobile at home. He spends much of his time in his chair and has not been out of the house for over a year. He has some home nursing notes. Does not wish to receive PT here. How did he get the influenza? --> Grandson had been visiting, then tested + for influenza Of note, has been quite immobile. Had Venous Doppler B/L LE last year with same issue/swelling that was negative --> repeat NEGATIVE --> Did have some trauma with recliner chair but pulses palpable but diminished Will also consult wound RN as well for LEs -- see note, topicals to be used B12 wnl 598. TSH wnl Likely 2nd to above, hard to tell how long this infection has been ongoing, but suspect could have been started from skin/soft tissue given trauma from recliner and draining wound R groin in previous weeks Tx as above (8) HARDIN (dyspnea on exertion): Plan: 2nd to above never had echo in past --> ordered --> normal LV size/systolic function. EF 60- 65%, No regional wma. Mild LVH. No significant valvular stenosis or regurgitation. Type I diastolic dysfunction (9) Hypomagnesemia: Plan: mag 1.6 on admission. 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 Discussed with patient. CM following PT consult ordered -- encouraged patient to consider participating Admission and Anticipated Discharge Date Admission Date: July 19, 2021 Supervising Physician Co-Signing Physician Notes PA Supervision Note: I did not personally see or examine the patient today, but I verified all gilman points of GELY Carlisle's assessment and plan with the following exceptions/additions: None Subjective eval this morning feeling better but increased back to 2L NC for comfort as he reports some increased SOB at 1L. Coughing more dry nose-- will add humidification coughing up sputum and using IS/flutter valve wounds/erythema to b/l LE improved, less painful states happened about 2-3 months ago. had home health coming for dressing changes for several weeks before signing off and allowing him//daughter to change them at home also was using ice pack to R groin for prior discomfort/hernia and noted he got a blister after. this had been draining yellow/white purulent drainage in past but nothing recently/today discussed could have bacteremia from either skin/soft tissue (very likely) but also from flu/pneumonia but repeating blood cultures and will continue to monitor changed abx last evening discussed rehab/PT evals -- still on fence but strongly encouraged to participate in therapy to help work on strengthening and ensure safe for return home eventually, possible with services. wound RN to see this afternoon as well Review of Systems Review of Systems: All systems reviewed & are unremarkable except as noted in HPI & below Physical Exam Physical Exam: General: patient resting comfortably in bed, sitting upright, no acute distress, occasional cough noted, poor hygiene, on 1L NC Skin: warm, dry but with chronic venous stasis changes with scabbing b/l LE with dermatitis as well as skin tear to lateral aspect of RLE --> decreased erythema to cellulitic changes b/l LE, less tender today. Also has smaller approximately 1cm lesion to R groin/skin fold (previously reported to have been draining), toenails with fungal appearance ENT: mm slightly dry, trachea midline without deviation Resp: diffuse end expiratory wheezing (decreased) , crackles LLL, no rhonchi, 91% on 1L currently --> increased to 2L CV: RRR, S1/S2, no m/r/g, chronic 1-2+ BL LE edema, pulses palpable, good cap refill GI: +BS throughout, soft, nontender : no Brown MSK/Neuro: moves all extremities, following commands, no facial droop/slurred speech, pulses palpable Results & Data Results & Data ([facility]) Vital Signs (Past 12 Hours) Vital Signs Temp Pulse Resp BP Pulse Ox 07/21/21 07:26 83 18 132/70 92 07/21/21 07:24 78 18 91 07/21/21 03:09 86 18 94 07/20/21 23:46 88 18 93 07/20/21 21:45 37.2 C 77 18 118/61 92 Laboratory Results 07/21/21 07/21/21 07/20/21 Range/Units 05:52 05:52 20:34 WBC 14.09 H (4.8-10.8) K/uL RBC 3.83 L (4.7-6.1) M/uL Hgb 11.3 L (14.0-18.0) g/dL Hct 34.4 L (42-52) % MCV 89.8 (80-100) fL MCH 29.5 (25-34) pg MCHC 32.8 (32-36) g/dL RDW Std Deviation 45.9 (36.4-46.3) fL RDW Coeff of Jocelyn 14.0 (11.5-14.5) % Plt Count 314 (130-400) K/uL MPV 9.2 (7.4-10.4) fL Immature Gran % (Auto) 1.5 % Neut % (Auto) 81.8 % Lymph % (Auto) 9.0 % [place] % (Auto) 7.5 % Eos % (Auto) 0.0 % Baso % (Auto) 0.2 % Neut # (Auto) 11.52 H (1.4-6.5) K/uL Lymph # (Auto) 1.27 (1.2-3.4) K/uL [place] # (Auto) 1.06 H (0.11-0.59) K/uL Eos # (Auto) 0.00 (0-0.5) K/uL Baso # (Auto) 0.03 (0-0.2) K/uL Immature Gran # (Auto) 0.21 H (0.00-0.02) K/uL Sodium 136 (136-145) mmol/L Potassium 4.3 (3.5-5.1) mmol/L Chloride 106 (98-107) mmol/L Carbon Dioxide 22 (21-32) mmol/L Anion Gap 8 (3-11) BUN 27 H (6-23) mg/dl Creatinine 1.10 (0.6-1.4) mg/dl Est Cr Clr Drug Dosing 85.3 ml/min Est GFR ( Amer) 77.3 ml/min Est GFR (Non-Af Amer) 66.7 ml/min BUN/Creatinine Ratio 24.5 H (10-20) Glucose 187 H (70-99(Fasting)) mg/dl POC Glucose (70-99) mg/dl Calcium 9.0 (8.5-10.1) mg/dl Magnesium 2.0 (1.7-2.4) mg/dl B-Natriuretic Peptide (0-100) pg/ml Vitamin B12 (211-911) pg/ml TSH (0.300-4.500) uIu/ml Nasal Screen MRSA (PCR) (Negative) Lyme Disease IgG Ab (Negative) Lyme Disease IgM Ab (Negative) Bld Cult Staph aureus PCR Negative (Negative) Blood Culture MRSA PCR Negative (Negative) 07/20/21 07/20/21 07/20/21 Range/Units 20:31 18:25 17:01 WBC (4.8-10.8) K/uL RBC (4.7-6.1) M/uL Hgb (14.0-18.0) g/dL Hct (42-52) % MCV (80-100) fL MCH (25-34) pg MCHC (32-36) g/dL RDW Std Deviation (36.4-46.3) fL RDW Coeff of Jocelyn (11.5-14.5) % Plt Count (130-400) K/uL MPV (7.4-10.4) fL Immature Gran % (Auto) % Neut % (Auto) % Lymph % (Auto) % [place] % (Auto) % Eos % (Auto) % Baso % (Auto) % Neut # (Auto) (1.4-6.5) K/uL Lymph # (Auto) (1.2-3.4) K/uL [place] # (Auto) (0.11-0.59) K/uL Eos # (Auto) (0-0.5) K/uL Baso # (Auto) (0-0.2) K/uL Immature Gran # (Auto) (0.00-0.02) K/uL Sodium (136-145) mmol/L Potassium (3.5-5.1) mmol/L Chloride (98-107) mmol/L Carbon Dioxide (21-32) mmol/L Anion Gap (3-11) BUN (6-23) mg/dl Creatinine (0.6-1.4) mg/dl Est Cr Clr Drug Dosing ml/min Est GFR ( Amer) ml/min Est GFR (Non-Af Amer) ml/min BUN/Creatinine Ratio (10-20) Glucose (70-99(Fasting)) mg/dl POC Glucose 185 H 163 H (70-99) mg/dl Calcium (8.5-10.1) mg/dl Magnesium (1.7-2.4) mg/dl B-Natriuretic Peptide (0-100) pg/ml Vitamin B12 (211-911) pg/ml TSH (0.300-4.500) uIu/ml Nasal Screen MRSA (PCR) Negative (Negative) Lyme Disease IgG Ab (Negative) Lyme Disease IgM Ab (Negative) Bld Cult Staph aureus PCR (Negative) Blood Culture MRSA PCR (Negative) 07/20/21 07/20/21 07/20/21 Range/Units 12:20 12:20 12:20 WBC (4.8-10.8) K/uL RBC (4.7-6.1) M/uL Hgb (14.0-18.0) g/dL Hct (42-52) % MCV (80-100) fL MCH (25-34) pg MCHC (32-36) g/dL RDW Std Deviation (36.4-46.3) fL RDW Coeff of Jocelyn (11.5-14.5) % Plt Count (130-400) K/uL MPV (7.4-10.4) fL Immature Gran % (Auto) % Neut % (Auto) % Lymph % (Auto) % [place] % (Auto) % Eos % (Auto) % Baso % (Auto) % Neut # (Auto) (1.4-6.5) K/uL Lymph # (Auto) (1.2-3.4) K/uL [place] # (Auto) (0.11-0.59) K/uL Eos # (Auto) (0-0.5) K/uL Baso # (Auto) (0-0.2) K/uL Immature Gran # (Auto) (0.00-0.02) K/uL Sodium (136-145) mmol/L Potassium (3.5-5.1) mmol/L Chloride (98-107) mmol/L Carbon Dioxide (21-32) mmol/L Anion Gap (3-11) BUN (6-23) mg/dl Creatinine (0.6-1.4) mg/dl Est Cr Clr Drug Dosing ml/min Est GFR ( Amer) ml/min Est GFR (Non-Af Amer) ml/min BUN/Creatinine Ratio (10-20) Glucose (70-99(Fasting)) mg/dl POC Glucose (70-99) mg/dl Calcium (8.5-10.1) mg/dl Magnesium (1.7-2.4) mg/dl B-Natriuretic Peptide 92 (0-100) pg/ml Vitamin B12 (211-911) pg/ml TSH 0.420 (0.300-4.500) uIu/ml Nasal Screen MRSA (PCR) (Negative) Lyme Disease IgG Ab Negative (Negative) Lyme Disease IgM Ab Negative (Negative) Bld Cult Staph aureus PCR (Negative) Blood Culture MRSA PCR (Negative) 07/20/21 07/20/21 Range/Units 12:20 12:04 WBC (4.8-10.8) K/uL RBC (4.7-6.1) M/uL Hgb (14.0-18.0) g/dL Hct (42-52) % MCV (80-100) fL MCH (25-34) pg MCHC (32-36) g/dL RDW Std Deviation (36.4-46.3) fL RDW Coeff of Jocelyn (11.5-14.5) % Plt Count (130-400) K/uL MPV (7.4-10.4) fL Immature Gran % (Auto) % Neut % (Auto) % Lymph % (Auto) % [place] % (Auto) % Eos % (Auto) % Baso % (Auto) % Neut # (Auto) (1.4-6.5) K/uL Lymph # (Auto) (1.2-3.4) K/uL [place] # (Auto) (0.11-0.59) K/uL Eos # (Auto) (0-0.5) K/uL Baso # (Auto) (0-0.2) K/uL Immature Gran # (Auto) (0.00-0.02) K/uL Sodium (136-145) mmol/L Potassium (3.5-5.1) mmol/L Chloride (98-107) mmol/L Carbon Dioxide (21-32) mmol/L Anion Gap (3-11) BUN (6-23) mg/dl Creatinine (0.6-1.4) mg/dl Est Cr Clr Drug Dosing ml/min Est GFR ( Amer) ml/min Est GFR (Non-Af Amer) ml/min BUN/Creatinine Ratio (10-20) Glucose (70-99(Fasting)) mg/dl POC Glucose 193 H (70-99) mg/dl Calcium (8.5-10.1) mg/dl Magnesium (1.7-2.4) mg/dl B-Natriuretic Peptide (0-100) pg/ml Vitamin B12 598 (211-911) pg/ml TSH (0.300-4.500) uIu/ml Nasal Screen MRSA (PCR) (Negative) Lyme Disease IgG Ab (Negative) Lyme Disease IgM Ab (Negative) Bld Cult Staph aureus PCR (Negative) Blood Culture MRSA PCR (Negative) Diagnostic Findings Venous Doppler Study 07/20/21 16:44 US venous doppler LE BI CLINICAL HISTORY: Leg swelling. Evaluate for DVT COMPARISON: None available at the time of this dictation. TECHNIQUE: Bilateral lower extremity real-time compression venous ultrasound with Color Doppler imaging. Utilizing real-time ultrasonic imaging multiple real time high-resolution ultrasonic images with compression and noncompression maneuvers of the deep venous system in addition to color doppler imaging were performed from the common femoral vein through the proximal calf veins. FINDINGS: Currently there is normal compressibility of the deep venous system from the common femoral vein through the proximal calf veins. No current evidence of acute thrombosis is identified. Impression: No evidence of deep venous thrombus. ACT 112: Negative or not required by law. Electronically signed by: Ehsan Gamino M.D. 07/20/2021 9:48 PM PG Care Time/CCT Total # of Minutes Spent Total Time Spent with Patient: Total time spent is greater than 50% in coordination of care (as documented) at patient's floor/unit and/or counseling patient: Coding Level of Care Code 28810 Subseq Hosp Care Lvl 3 Diagnoses Influenza J11.1 Pneumonia J18.9 COPD (chronic obstructive pulmonary disease) J44.9 Dyslipidemia E78.5 HTN (hypertension) I10 Gait abnormality R26.9 HARDIN (dyspnea on exertion) R06.00 Hypomagnesemia E83.42 Prediabetes R73.03 Acute dehydration E86.0 Bacteremia R78.81
[2021-07-21] MEDS ORDERED: SODIUM CHLORIDE 0.9% 1000ML 1,000 ML IV SCH (08:30)
[2021-07-21] MEDS: lisinopril 20 MG TAB PO SCH (08:56)
[2021-07-21] MEDS: POTASSIUM CHLORIDE 10 MEQ TABCR PO SCH (08:56)
[2021-07-21] MEDS: guaiFENesin 600 MG TABCR PO SCH ×2 (08:56→21:33)
[2021-07-21] MEDS: FUROSEMIDE 20 MG TAB PO SCH (08:57)
[2021-07-21] MEDS: SERTRALINE HCL 50 MG TABLET PO SCH (08:57)
[2021-07-21] MEDS: FLUTICASONE/VILANTEROL 200/25MCG 14 PUFFS/INHALER INH SCH (09:02)
[2021-07-21] MEDS: ENOXAPARIN INJ 40 MG/0.4 ML SYR SQ SCH ×2 (09:03→21:32)
[2021-07-21] MEDS: INSULIN ASPART PER UNIT SC SCH ×4 (09:06→21:26)
[2021-07-21] MEDS: DOXYCYCLINE HYCLATE 100 MG in DEXTROSE 5% 100 ML IV SCH ×2 (09:51→21:32)
[2021-07-21] MEDS ORDERED: MICONAZOLE NITRATE POWDER 43 GM EXT PRN (10:12)
[2021-07-21] MEDS: methylPREDNISolone 30 MG in SYRINGE 0 ML IV SCH ×2 (15:29→21:32)
[2021-07-21] MEDS: cefTRIAXone SODIUM 2,000 MG in DEXTROSE 5% 50 ML IV SCH (19:24)
[2021-07-21] MEDS: EUCERIN CR 120 GM JAR EXT SCH (21:31)
[2021-07-21] MEDS: ASPIRIN 81 MG ECTAB PO SCH (21:33)
[2021-07-21] MEDS: SIMVASTATIN 20 MG TAB PO SCH (21:34)
[2021-07-22] MEDS: ALBUT/IPRATROP 3MG/0.5MG NEB 3 ML VIAL NEB SCH ×7 (00:01→23:11)
[2021-07-22] MEDS: methylPREDNISolone 30 MG in SYRINGE 0 ML IV SCH ×3 (05:32→21:29)
--- NOTE | 2021-07-22 05:59 | Electrocardiogram Report ---
Test Reason : Blood Pressure : / mmHG Vent. Rate : 077 BPM Atrial Rate : 088 BPM P-R Int : 168 ms QRS Dur : 122 ms QT Int : 404 ms P-R-T Axes : 073 031 054 degrees QTc Int : 457 ms Sinus rhythm with marked sinus arrhythmia Right bundle branch block When compared with ECG of 19-JUL-2021 20:54, Vent. rate has decreased BY 38 BPM Confirmed by Mario Luna ([id number]) on 07/22/2021 5:59:02 AM Referred By: REFERRED SELF Confirmed By:Mario Luna
--- NOTE | 2021-07-22 08:09 | Hospitalist Progress Note ---
Date of Service July 22, 2021 Assessment & Plan (1) Bacteremia: Plan: 71yo male with COPD/Asthma presenting with 2.5 weeks of progressive SOB, dry cough as well as body aches and fatigue. Patient found to be POSITIVE for influenza A. Out of window for tamiflu, but did get 1 dose in ER Maintain isolation precautions - droplet for influenza He has not received his Influenza vaccine this year. -- has grandson visit on the weekend who also tested + for influenza A (2 weekends ago was visiting) RSV/COVID negative Blood cultures 1 bottle each set from admission GPC in clusters, staphylococcus species on prelim -> follow. PCR negative for MRSA. Nasal NEGATIVE Repeat bcx 07/21 NGTD after 24 hours -- monitor Could be from pulmonary source given flu--> PNA on CXR * --> treating pneumonia for CAP to Ceftriaxone/Doxycycline to cover from Cefepime/Azithromycin as given on admission * MRSA nasal and PCR from BCx NEGATIVE Could also be from LE cellulitis vs open wound to R groin fold reported to have been draining in the past, no draining on examination today or abscess appreciated * --> Decreased erythema/tenderness on examination. Wound RN consulted as well (previously had home health RN visit for dressing changes after trauma from recliner --> Venous Dopplers NEGATIVE for DVT) -->Either way, Ceftriaxone/doxy to cover for staph/strep (day 2) Afebrile, WBC elevated but on steroids, decreased to 30mg Q8 today, further titrate tomorrow Restarted IVF NS @ 80cc/hr for some dehydration 07/21, improvement in appetite and no further ordered ECHO 07/20 done given HARDIN --> did not note any vegetation Supportive care/electrolyte replacement --> tx for pneumonia/COPD exacerbation as below (2) Influenza: Plan: Supportive care, tx pneumonia as below (3) Pneumonia: Plan: Suspect concomitant bacterial PNA given consolidation on CXR, elevation of procalcitonin 2.27. Lactic 1.6 wnl * Blood culture on admission --> GPC as above, monitor and repeat pending * Sputum culture ordered -- follow once able to provide sample Cefepime/Azithromycin discontinued --> transitioned to Ceftriaxone/Doxy /10 as above to cover for CAP/skin/soft tissue given bacteremia as above * Solumedrol IV for COPD exacerbation as below as well -- decrease dose today to 30mg TID * Incentive spirometer, flutter valve * Tylenol, tessalon pearls prn Hypoxic on arrival now improved on supplemental O2 and had been 93% on 8L/min --> currently on 2L with SpO2 94% and titrate to maintain sats 92 or > 2step prior to d/c (4) COPD (chronic obstructive pulmonary disease): Plan: Patient with COPD - on home Symbicort and Albuterol. Diffuse wheezing and diminished airflow on exam. Suspect COPD exacerbation in setting of influenza illness contributing to patient's SOB as well. Supplemental O2 as needed Patient does not use home O2 DuoNeb q 4 hours, Albuterol PRN Solu-medrol 40mg IV TID --> decrease to 30mg IV TID -- can change to prednisone tomorrow if continues with improvement but will continue IV for now Doxy as above for Atypicals Tessalon pearls prn Sputum cx if able to produce Mucinex BID--> increased to 1200mg BID and now having some productive sputum --> send for cx if able Flutter Valve, Incentive Spirometer would 2 step prior to discharge Of note, would also not be surprised if patient also with degree of underlying sleep apnea/OHS given body habitus and chronic fatigue/daytime somnolence Rec f/u with pulm at d/c (5) Dyslipidemia: Plan: Chronic. Continue Simvastatin 20mg po daily (6) HTN (hypertension): Plan: Chronic. BP 142/67 Continue lisinopril, resume lasix (7) Gait abnormality: Plan: Patient is reportedly quite immobile at home. He spends much of his time in his chair and has not been out of the house for over a year. He has some home nursing notes. Does not wish to receive PT here. How did he get the influenza? --> Grandson had been visiting, then tested + for influenza Of note, has been quite immobile. Had Venous Doppler B/L LE last year with same issue/swelling that was negative --> repeat NEGATIVE --> Did have some trauma with recliner chair but pulses palpable but diminished Will also consult wound RN as well for LEs -- see note, topicals to be used/aquacell and Eucerin to b/l LE B12 wnl 598. TSH wnl Likely 2nd to above, hard to tell how long this infection has been ongoing, but suspect could have been started from skin/soft tissue given trauma from recliner and draining wound R groin in previous weeks Tx as above (8) HARDIN (dyspnea on exertion): Plan: 2nd to above never had echo in past --> ordered --> normal LV size/systolic function. EF 60- 65%, No regional wma. Mild LVH. No significant valvular stenosis or regurgitation. Type I diastolic dysfunction (9) Hypomagnesemia: Plan: mag 1.6 on admission. 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 Discussed with patient. CM following PT consult ordered -- encouraged patient to consider participating but has been refusing Admission and Anticipated Discharge Date Admission Date: July 19, 2021 Subjective patient evaluated around lunch breathing much better and states feeling better was up in chair for about an hour or two today increased mucinex and coughing up some sputum for sample weaned to 2L and remains stable -- will wean as able to maintain O2. some back pain from being in bed but not much of an issue. ok to try some topical voltaren vs lidocaine patch still refusing therapy -- encouraged compliance repeat blood cultures remain negative but will monitor erythema to LE improving but about stable/back to usual. No fever, chills, chest pain, abd pain, n/v. Improvement in appetite Questions/concerns addressed Review of Systems Review of Systems: All systems reviewed & are unremarkable except as noted in HPI & below Physical Exam Physical Exam: General: patient resting comfortably in bed, sitting upright, no acute distress, occasional cough noted, poor hygiene, on 2L NC Skin: warm, dry but with chronic venous stasis changes with scabbing b/l LE with dermatitis as well as skin tear to lateral aspect of RLE --> decreased erythema to cellulitic changes b/l LE, less tender today. Also has smaller approximately 1cm lesion to R groin/skin fold (previously reported to have been draining), toenails with fungal appearance ENT: mm slightly dry, trachea midline without deviation Resp: diffuse end expiratory wheezing (decreased) , crackles LLL, no rhonchi, 94% on 2 CV: RRR, S1/S2, no m/r/g, chronic 1-2+ BL LE edema, pulses palpable, good cap refill GI: +BS throughout, soft, nontender : no Brown MSK/Neuro: moves all extremities, following commands, no facial droop/slurred speech, pulses palpable Results & Data Results & Data ([facility]) Vital Signs (Past 12 Hours) Vital Signs Temp Pulse Resp BP Pulse Ox 07/22/21 08:06 75 18 94 07/22/21 03:53 90 16 96 07/22/21 00:02 61 20 94 07/21/21 22:30 37.3 C 75 20 131/67 92 Laboratory Results 07/22/21 07/22/21 07/22/21 Range/Units 12:24 12:19 11:02 WBC (4.8-10.8) K/uL RBC (4.7-6.1) M/uL Hgb (14.0-18.0) g/dL Hct (42-52) % MCV (80-100) fL MCH (25-34) pg MCHC (32-36) g/dL RDW Std Deviation (36.4-46.3) fL RDW Coeff of Jocelyn (11.5-14.5) % Plt Count (130-400) K/uL MPV (7.4-10.4) fL Sodium 136 (136-145) mmol/L Potassium 4.3 TNP Chloride 105 (98-107) mmol/L Carbon Dioxide 19 L (21-32) mmol/L Anion Gap 12 H (3-11) BUN 29 H (6-23) mg/dl Creatinine 1.12 (0.6-1.4) mg/dl Est Cr Clr Drug Dosing 83.8 ml/min Est GFR ( Amer) 75.7 ml/min Est GFR (Non-Af Amer) 65.3 ml/min BUN/Creatinine Ratio 25.9 H (10-20) Glucose 159 H (70-99(Fasting)) mg/dl POC Glucose 156 H (70-99) mg/dl Calcium 9.2 (8.5-10.1) mg/dl 07/22/21 07/22/21 07/21/21 Range/Units 11:02 08:06 21:04 WBC 13.63 H (4.8-10.8) K/uL RBC 4.03 L (4.7-6.1) M/uL Hgb 11.9 L (14.0-18.0) g/dL Hct 35.8 L (42-52) % MCV 88.8 (80-100) fL MCH 29.5 (25-34) pg MCHC 33.2 (32-36) g/dL RDW Std Deviation 46.3 (36.4-46.3) fL RDW Coeff of Jocelyn 14.1 (11.5-14.5) % Plt Count 362 (130-400) K/uL MPV 9.7 (7.4-10.4) fL Sodium (136-145) mmol/L Potassium Chloride (98-107) mmol/L Carbon Dioxide (21-32) mmol/L Anion Gap (3-11) BUN (6-23) mg/dl Creatinine (0.6-1.4) mg/dl Est Cr Clr Drug Dosing ml/min Est GFR ( Amer) ml/min Est GFR (Non-Af Amer) ml/min BUN/Creatinine Ratio (10-20) Glucose (70-99(Fasting)) mg/dl POC Glucose 183 H 178 H (70-99) mg/dl Calcium (8.5-10.1) mg/dl 07/21/21 Range/Units 17:19 WBC (4.8-10.8) K/uL RBC (4.7-6.1) M/uL Hgb (14.0-18.0) g/dL Hct (42-52) % MCV (80-100) fL MCH (25-34) pg MCHC (32-36) g/dL RDW Std Deviation (36.4-46.3) fL RDW Coeff of Jocelyn (11.5-14.5) % Plt Count (130-400) K/uL MPV (7.4-10.4) fL Sodium (136-145) mmol/L Potassium Chloride (98-107) mmol/L Carbon Dioxide (21-32) mmol/L Anion Gap (3-11) BUN (6-23) mg/dl Creatinine (0.6-1.4) mg/dl Est Cr Clr Drug Dosing ml/min Est GFR ( Amer) ml/min Est GFR (Non-Af Amer) ml/min BUN/Creatinine Ratio (10-20) Glucose (70-99(Fasting)) mg/dl POC Glucose 166 H (70-99) mg/dl Calcium (8.5-10.1) mg/dl PG Care Time/CCT Total # of Minutes Spent Total Time Spent with Patient: Total time spent is greater than 50% in coordination of care (as documented) at patient's floor/unit and/or counseling patient: Coding Level of Care Code 26148 Subseq Hosp Care Lvl 3 Diagnoses Bacteremia R78.81 Influenza J11.1 Pneumonia J18.9 COPD (chronic obstructive pulmonary disease) J44.9 Dyslipidemia E78.5 HTN (hypertension) I10 Gait abnormality R26.9 HARDIN (dyspnea on exertion) R06.00 Hypomagnesemia E83.42 Prediabetes R73.03
[2021-07-22] MEDS: INSULIN ASPART PER UNIT SC SCH ×4 (08:44→21:43)
[2021-07-22] MEDS: DOXYCYCLINE HYCLATE 100 MG in DEXTROSE 5% 100 ML IV SCH ×2 (08:55→21:44)
[2021-07-22] MEDS: ENOXAPARIN INJ 40 MG/0.4 ML SYR SQ SCH ×2 (08:56→21:28)
[2021-07-22] MEDS: EUCERIN CR 120 GM JAR EXT SCH ×2 (08:58→21:27)
[2021-07-22] MEDS: FLUTICASONE/VILANTEROL 200/25MCG 14 PUFFS/INHALER INH SCH (08:58)
[2021-07-22] MEDS: SERTRALINE HCL 50 MG TABLET PO SCH (08:59)
[2021-07-22] MEDS: POTASSIUM CHLORIDE 10 MEQ TABCR PO SCH (08:59)
[2021-07-22] MEDS: lisinopril 20 MG TAB PO SCH (08:59)
[2021-07-22] MEDS: guaiFENesin 600 MG TABCR PO SCH ×2 (09:51→21:27)
[2021-07-22 11:20] LABS: Hematocrit (blood only) 35.8 % (42-52); Hemoglobin 11.9 g/dL (14.0-18.0); Mean Corpuscular Hemoglobin 29.5 pg (25-34); Mean Corpuscular Hgb Conc 33.2 g/dL (32-36); Mean Corpuscular Volume 88.8 fL (80-100); Mean Platelet Volume 9.7 fL (7.4-10.4); Platelet Count 362 K/uL (130-400); RDW Coefficient of Variation 14.1 % (11.5-14.5); RDW Standard Deviation 46.3 fL (36.4-46.3); Red Blood Count 4.03 M/uL (4.7-6.1); White Blood Count 13.63 K/uL (4.8-10.8)
[2021-07-22 12:01] LABS: Anion Gap 12 (3-11); BUN Creatinine Ratio 25.9 (10-20); Blood Urea Nitrogen 29 mg/dl (6-23); Calcium 9.2 mg/dl (8.5-10.1); Carbon Dioxide 19 mmol/L (21-32); Chloride 105 mmol/L (98-107); Creatinine Clr Calc Pharmacy 83.8 ml/min; Est GFR (African American) 75.7 ml/min; Est GFR (Non-African American) 65.3 ml/min; Glucose 159 mg/dl (70-99(Fasting)); Sodium 136 mmol/L (136-145)
[2021-07-22] MEDS: cefTRIAXone SODIUM 2,000 MG in DEXTROSE 5% 50 ML IV SCH (18:25)
[2021-07-22] MEDS: DICLOFENAC SOD 1% GEL 100 GM TUBE EXT SCH ×2 (21:26→21:30)
[2021-07-22] MEDS: ASPIRIN 81 MG ECTAB PO SCH (21:29)
[2021-07-22] MEDS: SIMVASTATIN 20 MG TAB PO SCH (21:30)
[2021-07-23] MEDS: ALBUT/IPRATROP 3MG/0.5MG NEB 3 ML VIAL NEB SCH ×6 (04:14→22:33)
[2021-07-23] MEDS: methylPREDNISolone 30 MG in SYRINGE 0 ML IV SCH ×3 (05:17→21:25)
[2021-07-23 06:31] LABS: Hematocrit (blood only) 34.6 % (42-52); Hemoglobin 11.3 g/dL (14.0-18.0); Mean Corpuscular Hemoglobin 29.3 pg (25-34); Mean Corpuscular Hgb Conc 32.7 g/dL (32-36); Mean Corpuscular Volume 89.6 fL (80-100); Platelet Count 354 K/uL (130-400); RDW Coefficient of Variation 13.9 % (11.5-14.5); RDW Standard Deviation 45.6 fL (36.4-46.3); Red Blood Count 3.86 M/uL (4.7-6.1); White Blood Count 12.01 K/uL (4.8-10.8)
[2021-07-23 06:52] LABS: Calcium 8.8 mg/dl (8.5-10.1); Creatinine Clr Calc Pharmacy 87.7 ml/min; Magnesium 1.9 mg/dl (1.7-2.4); Potassium 4.2 mmol/L (3.5-5.1)
[2021-07-23] MEDS: SERTRALINE HCL 50 MG TABLET PO SCH (08:28)
[2021-07-23] MEDS: guaiFENesin 600 MG TABCR PO SCH ×2 (08:28→21:25)
[2021-07-23] MEDS: FLUTICASONE/VILANTEROL 200/25MCG 14 PUFFS/INHALER INH SCH (08:28)
[2021-07-23] MEDS: POTASSIUM CHLORIDE 10 MEQ TABCR PO SCH (08:28)
[2021-07-23] MEDS: lisinopril 20 MG TAB PO SCH (08:28)
[2021-07-23] MEDS: FUROSEMIDE 20 MG TAB PO SCH (08:28)
[2021-07-23] MEDS: DOXYCYCLINE HYCLATE 100 MG in DEXTROSE 5% 100 ML IV SCH ×2 (08:29→21:21)
[2021-07-23] MEDS: ENOXAPARIN INJ 40 MG/0.4 ML SYR SQ SCH ×2 (08:29→21:22)
[2021-07-23] MEDS: DICLOFENAC SOD 1% GEL 100 GM TUBE EXT SCH ×4 (08:29→21:22)
[2021-07-23] MEDS: EUCERIN CR 120 GM JAR EXT SCH ×2 (08:29→21:22)
--- NOTE | 2021-07-23 08:41 | Hospitalist Progress Note ---
Date of Service July 23, 2021 Assessment & Plan (1) Bacteremia: Plan: 71yo male with COPD/Asthma presenting with 2.5 weeks of progressive SOB, dry cough as well as body aches and fatigue. Patient found to be POSITIVE for influenza A. Out of window for tamiflu, but did get 1 dose in ER Maintain isolation precautions - droplet for influenza He has not received his Influenza vaccine this year. -- has grandson visit on the weekend who also tested + for influenza A (2 weekends ago was visiting) RSV/COVID negative Blood cultures 1 bottle each set from admission GPC in clusters, staphylococcus species on prelim -> follow. PCR negative for MRSA. Nasal NEGATIVE Cx with staph hominis/capitis Repeat bcx 07/21 NGTD after 24 hours -- monitor Could be from pulmonary source given flu--> PNA on CXR * --> treating pneumonia for CAP to Ceftriaxone/Doxycycline to cover from Cefepime/Azithromycin as given on admission * MRSA nasal and PCR from BCx NEGATIVE Could also be from LE cellulitis vs open wound to R groin fold reported to have been draining in the past, no draining on examination today or abscess appreciated * --> Decreased erythema/tenderness on examination. Wound RN consulted as well (previously had home health RN visit for dressing changes after trauma from recliner --> Venous Dopplers NEGATIVE for DVT) -->Either way, Ceftriaxone/doxy to cover for staph/strep (day 3) Afebrile, WBC elevated but on steroids, decreasing --> convert to Prednisone PO in AM No further IVF, appetite improved ECHO w/o vegetation Supportive care/electrolyte replacement --> tx for pneumonia/COPD exacerbation as below (2) Influenza: Plan: Supportive care, tx pneumonia as below (3) Pneumonia: Plan: Suspect concomitant bacterial PNA given consolidation on CXR, elevation of procalcitonin 2.27. Lactic 1.6 wnl * Blood culture on admission --> GPC as above, monitor and repeat pending * Sputum culture ordered -- follow once able to provide sample Cefepime/Azithromycin discontinued --> transitioned to Ceftriaxone/Doxy 07/20 as above to cover for CAP/skin/soft tissue given bacteremia as above * Solumedrol IV for COPD exacerbation as below as well -- decrease dose today to 30mg TID, and change to prednisone in AM (significantly less wheezing/almost none today) * Incentive spirometer, flutter valve * Tylenol, tessalon pearls prn Hypoxic on arrival now improved on supplemental O2 and had been 93% on 8L/min --> currently on 2L with SpO2 94% and titrate to maintain sats 92 or > 2step prior to d/c (4) COPD (chronic obstructive pulmonary disease): Plan: Patient with COPD - on home Symbicort and Albuterol. Diffuse wheezing and diminished airflow on exam. Suspect COPD exacerbation in setting of influenza illness contributing to patient's SOB as well. Supplemental O2 as needed Patient does not use home O2 DuoNeb q 4 hours, Albuterol PRN Solu-medrol 40mg IV TID --> decreased to 30mg IV TID-- changed to prednisone for AM Doxy as above for Atypicals Tessalon pearls prn Sputum cx if able to produce Mucinex BID--> increased to 1200mg BID and now having some productive sputum --> send for cx if able -- pending Flutter Valve, Incentive Spirometer would 2 step prior to discharge Of note, would also not be surprised if patient also with degree of underlying sleep apnea/OHS given body habitus and chronic fatigue/daytime somnolence Rec f/u with pulm at d/c (5) Dyslipidemia: Plan: Chronic. Continue Simvastatin 20mg po daily (6) HTN (hypertension): Plan: Chronic. BP 144/64 Continue lisinopril, resumed lasix (7) Gait abnormality: Plan: Patient is reportedly quite immobile at home. He spends much of his time in his chair and has not been out of the house for over a year. He has some home nursing notes. Does not wish to receive PT here. How did he get the influenza? --> Grandson had been visiting, then tested + for influenza Of note, has been quite immobile. Had Venous Doppler B/L LE last year with same issue/swelling that was negative --> repeat NEGATIVE --> Did have some trauma with recliner chair but pulses palpable but diminished Will also consult wound RN as well for LEs -- see note, topicals to be used/aquacell and Eucerin to b/l LE B12 wnl 598. TSH wnl Likely 2nd to above, hard to tell how long this infection has been ongoing, but suspect could have been started from skin/soft tissue given trauma from recliner and draining wound R groin in previous weeks Tx as above (8) HARDIN (dyspnea on exertion): Plan: 2nd to above never had echo in past --> ordered --> normal LV size/systolic function. EF 60- 65%, No regional wma. Mild LVH. No significant valvular stenosis or regurgitation. Type I diastolic dysfunction (9) Hypomagnesemia: Plan: mag 1.6 on admission. IV replacement ordered wnl on repeat 1.9 (10) Prediabetes: Plan: last a1c 5.8 is on metformin 500mg BID J[employer]CH[employer]ECT Added ISS while inpatient BSGs acceptable Continue to monitor Plan: On Lovenox SQ BID for DVT Prophylaxis Continued IV abx/monitor blood cultures Consider c/w ID for Saturday but will monitor repeat cultures and likely need at least 2 weeks abx therapy. Discussed with patient. CM following PT consult ordered -- encouraged patient to consider participating but has been refusing and has been discharged from their service at this time. --> Has been getting up better to chair today reported and strongly encouraged increased ambulation. If he changes his mind, reconsult PT Admission and Anticipated Discharge Date Admission Date: July 19, 2021 Subjective patient evaluated this morning less tightness, wheezing up in chair today, feeling much improved moved bowels x 2 using IS/flutter valve lungs with significant reduction in wheezing and will transition to prednisone PO in am. Repeat blood cultures reviewed with patient and negative to date. Possible curb side ID in AM based on final cx if matching sputum cx vs if other could be skin/soft tissue and possible d/c with PO abx x 2 weeks. Will continue to monitor No fever, chills, chest pain, abd pain, nausea, vomiting or dysuria at this time. Review of Systems Review of Systems: All systems reviewed & are unremarkable except as noted in HPI & below Physical Exam Physical Exam: General: patient resting comfortably up in chair, sitting upright, no acute distress, occasional cough noted, poor hygiene, on 2L NC Skin: warm, dry but with chronic venous stasis changes with scabbing b/l LE with dermatitis as well as skin tear to lateral aspect of RLE --> decreased erythema to cellulitic changes b/l LE, less tender today. Also has smaller approximately 1cm lesion to R groin/skin fold (previously reported to have been draining), toenails with fungal appearance ENT: mm slightly dry (IMPROVED), trachea midline without deviation Resp: faint end expiratory wheezing (decreased) , crackles LLL, no rhonchi, on 2L NC CV: RRR, S1/S2, no m/r/g, chronic 1-2+ BL LE edema, pulses palpable, good cap refill GI: +BS throughout, soft, nontender : no Brown MSK/Neuro: moves all extremities, following commands, no facial droop/slurred speech, pulses palpable Results & Data Results & Data ([facility]) Vital Signs (Past 12 Hours) Vital Signs Temp Pulse Resp BP Pulse Ox 07/23/21 07:34 36.5 C 73 16 135/67 94 07/23/21 07:09 66 18 97 07/23/21 04:56 63 18 96 07/22/21 23:30 82 18 96 07/22/21 21:31 37.2 C 65 18 137/68 93 Laboratory Results 07/23/21 07/23/21 07/23/21 Range/Units 07:56 05:39 05:39 WBC 12.01 H (4.8-10.8) K/uL RBC 3.86 L (4.7-6.1) M/uL Hgb 11.3 L (14.0-18.0) g/dL Hct 34.6 L (42-52) % MCV 89.6 (80-100) fL MCH 29.3 (25-34) pg MCHC 32.7 (32-36) g/dL RDW Std Deviation 45.6 (36.4-46.3) fL RDW Coeff of Jocelyn 13.9 (11.5-14.5) % Plt Count 354 (130-400) K/uL MPV 9.0 (7.4-10.4) fL Sodium 135 L (136-145) mmol/L Potassium 4.2 Chloride 107 (98-107) mmol/L Carbon Dioxide 20 L (21-32) mmol/L Anion Gap 8 (3-11) BUN 30 H (6-23) mg/dl Creatinine 1.07 (0.6-1.4) mg/dl Est Cr Clr Drug Dosing 87.7 ml/min Est GFR ( Amer) 80.0 ml/min Est GFR (Non-Af Amer) 69.0 ml/min BUN/Creatinine Ratio 28.0 H (10-20) Glucose 196 H (70-99(Fasting)) mg/dl POC Glucose 197 H (70-99) mg/dl Calcium 8.8 (8.5-10.1) mg/dl Magnesium 1.9 (1.7-2.4) mg/dl 07/22/21 07/22/21 07/22/21 Range/Units 20:52 18:01 12:24 WBC (4.8-10.8) K/uL RBC (4.7-6.1) M/uL Hgb (14.0-18.0) g/dL Hct (42-52) % MCV (80-100) fL MCH (25-34) pg MCHC (32-36) g/dL RDW Std Deviation (36.4-46.3) fL RDW Coeff of Jocelyn (11.5-14.5) % Plt Count (130-400) K/uL MPV (7.4-10.4) fL Sodium (136-145) mmol/L Potassium 4.3 Chloride (98-107) mmol/L Carbon Dioxide (21-32) mmol/L Anion Gap (3-11) BUN (6-23) mg/dl Creatinine (0.6-1.4) mg/dl Est Cr Clr Drug Dosing ml/min Est GFR ( Amer) ml/min Est GFR (Non-Af Amer) ml/min BUN/Creatinine Ratio (10-20) Glucose (70-99(Fasting)) mg/dl POC Glucose 190 H 234 H (70-99) mg/dl Calcium (8.5-10.1) mg/dl Magnesium (1.7-2.4) mg/dl 07/22/21 07/22/21 07/22/21 Range/Units 12:19 11:02 11:02 WBC 13.63 H (4.8-10.8) K/uL RBC 4.03 L (4.7-6.1) M/uL Hgb 11.9 L (14.0-18.0) g/dL Hct 35.8 L (42-52) % MCV 88.8 (80-100) fL MCH 29.5 (25-34) pg MCHC 33.2 (32-36) g/dL RDW Std Deviation 46.3 (36.4-46.3) fL RDW Coeff of Jocelyn 14.1 (11.5-14.5) % Plt Count 362 (130-400) K/uL MPV 9.7 (7.4-10.4) fL Sodium 136 (136-145) mmol/L Potassium TNP Chloride 105 (98-107) mmol/L Carbon Dioxide 19 L (21-32) mmol/L Anion Gap 12 H (3-11) BUN 29 H (6-23) mg/dl Creatinine 1.12 (0.6-1.4) mg/dl Est Cr Clr Drug Dosing 83.8 ml/min Est GFR ( Amer) 75.7 ml/min Est GFR (Non-Af Amer) 65.3 ml/min BUN/Creatinine Ratio 25.9 H (10-20) Glucose 159 H (70-99(Fasting)) mg/dl POC Glucose 156 H (70-99) mg/dl Calcium 9.2 (8.5-10.1) mg/dl Magnesium (1.7-2.4) mg/dl PG Care Time/CCT Total # of Minutes Spent Total Time Spent with Patient: Total time spent is greater than 50% in coordination of care (as documented) at patient's floor/unit and/or counseling patient: Coding Level of Care Code 82544 Subseq Hosp Care Lvl 3 Diagnoses Bacteremia R78.81 Influenza J11.1 Pneumonia J18.9 COPD (chronic obstructive pulmonary disease) J44.9 Dyslipidemia E78.5 HTN (hypertension) I10 Gait abnormality R26.9 HARDIN (dyspnea on exertion) R06.00 Hypomagnesemia E83.42 Prediabetes R73.03
[2021-07-23] MEDS: INSULIN ASPART PER UNIT SC SCH ×4 (09:32→21:23)
--- NOTE | 2021-07-23 10:26 | XRay Report ---
XR chest 1V portable CLINICAL HISTORY: f/u pna TECHNIQUE: Single frontal radiograph of the chest was obtained. Comparison: Comparison is made to chest one view 07/19/2021 FINDINGS: No lines and tubes are seen. The cardiomediastinal silhouette is normal. Interval improvement in mult ifocal airspace opacities. There is atelectasis in the left lung base. No evidence of pleural effusio n or pneumothorax. IMPRESSION: Interval improvement in multifocal airspace opacities. ACT 112: Negative or not required by law. Electronically signed by: James Pisano M.D. 07/23/2021 10:24 AM
[2021-07-23] MEDS: cefTRIAXone SODIUM 2,000 MG in DEXTROSE 5% 50 ML IV SCH (18:11)
[2021-07-23] MEDS: SIMVASTATIN 20 MG TAB PO SCH (21:24)
[2021-07-23] MEDS: ASPIRIN 81 MG ECTAB PO SCH (21:24)
[2021-07-24] MEDS: ALBUT/IPRATROP 3MG/0.5MG NEB 3 ML VIAL NEB SCH ×3 (03:16→10:52)
[2021-07-24 06:48] LABS: BUN Creatinine Ratio 26.9 (10-20); Calcium 8.8 mg/dl (8.5-10.1); Creatinine Clr Calc Pharmacy 90.2 ml/min; Est GFR (African American) 82.7 ml/min; Est GFR (Non-African American) 71.4 ml/min; Potassium 4.3 mmol/L (3.5-5.1)
[2021-07-24] MEDS: DICLOFENAC SOD 1% GEL 100 GM TUBE EXT SCH ×2 (08:53→12:54)
[2021-07-24] MEDS: ENOXAPARIN INJ 40 MG/0.4 ML SYR SQ SCH (08:54)
[2021-07-24] MEDS: EUCERIN CR 120 GM JAR EXT SCH (08:54)
[2021-07-24] MEDS: guaiFENesin 600 MG TABCR PO SCH (08:55)
[2021-07-24] MEDS: FUROSEMIDE 20 MG TAB PO SCH (08:55)
[2021-07-24] MEDS: FLUTICASONE/VILANTEROL 200/25MCG 14 PUFFS/INHALER INH SCH (08:55)
[2021-07-24] MEDS: POTASSIUM CHLORIDE 10 MEQ TABCR PO SCH (08:56)
[2021-07-24] MEDS: lisinopril 20 MG TAB PO SCH (08:56)
[2021-07-24] MEDS: SERTRALINE HCL 50 MG TABLET PO SCH (08:56)
[2021-07-24] MEDS ORDERED: predniSONE 50 MG TAB PO SCH (09:00)
[2021-07-24] MEDS: INSULIN ASPART PER UNIT SC SCH ×2 (09:03→12:53)
[2021-07-24] MEDS: DOXYCYCLINE HYCLATE 100 MG in DEXTROSE 5% 100 ML IV SCH (09:04)
[2021-07-24] MEDS ORDERED: CEFDINIR 300 MG CAP PO STA (13:24)
--- NOTE | 2021-07-24 15:11 | Discharge Summary ---
Date of Service July 24, 2021 Admission HPI Per Admitting Provider Alton Arenas is a 71yo male with history of Asthma/COPD, HTN, GERD, JOSH presenting with 1.5 weeks of progressive shortness of breath, dry cough, body aches. Patient reports an elevated body temperature of 99.7 several days ago but has not had elevated temperatures recently. This evening he developed watery diarrhea. He was trying to go to the bathroom this evening when he lost his balance and fell. He denies chest pain, palpitations, head trauma or loss of consciousness. He was unable to get up so EMS was called. Upon arrival patient was found to be tachycardic, RR of 30 and saturation of 82% on room air. He does not wear oxygen at home. During my encounter patient was able to speak in complete sentences. No respiratory distress. Saturating 93% on 8L NC - did not wish to wear BiPAP mask. Laboratory workup significant for leukocytosis. Mild anemia with Hgb=12.3, Hct=37.2. Elevated Procalcitonin of 2.22 and POSITIVE for Influenza A. Patient did not receive his Covid-19 vaccinations nor his Influenza vaccines ER Course: Tamiflu 75mg, Cefepime 2gm, Solumedrol 60mg IV, Magnesium 1gm, NSS 500mL, Albuterol 12mL neb Principal Diagnosis Influenza A; Pneumonia Discharge Exam PHYSICAL EXAM General Appearance: WDWN in NAD who is A&O x 3 HEENT: Head is normocephalic/atraumatic; Hearing grossly intact; Lips dry Neck: Supple; Trachea midline; Neg JVD Heart: RRR with no M/G/R Lungs: CTA in all lung johnson bilaterally but diminished at bases; Respirations unlabored; Neg accessory muscle use Abdomen: Soft, non-tender, non-distended; Positive BS x 4 quadrants Extremities: Capillary refill < 2 seconds; Neg cyanosis; chronic venous changes bilateral shins without drainage or warmth but scabbed/dry skin Neurological: Speech clear; Gross motor/sensory function intact; Neg focal neurologic deficits Psychiatric: Appropriate mood/affect Skin: Normal Color; Warm/Dry Discharge Data Allergies Allergy/AdvReac Type Severity Reaction Status Date / Time cheese Allergy Unknown SICK TO Verified 07/19/21 21:32 STOMACH Penicillins Allergy Unknown RASH Verified 07/19/21 21:32 Consultations 07/19/21 21:58 ED Decision to Admit Stat Ordered Studies Chest X-Ray 07/19/21 20:20 XR chest 1V portable CLINICAL HISTORY: SEPSIS TECHNIQUE: Single frontal radiograph of the chest was obtained. Comparison: None available at the time of this dictation. FINDINGS: No lines and tubes are seen. The cardiomediastinal silhouette is normal. Multifocal airspace opacities are seen. These are most prominent in the right lower lung. No evidence of pleural effusion or pneumothorax. IMPRESSION: Multifocal airspace opacities may represent atelectasis, pneumonia, and/or aspiration. ACT 112: Negative or not required by law. Electronically signed by: James Pisano M.D. 07/20/2021 9:03 AM Venous Doppler Study 07/20/21 16:44 US venous doppler LE CLINICAL HISTORY: Leg swelling. Evaluate for DVT COMPARISON: None available at the time of this dictation. TECHNIQUE: Bilateral lower extremity real-time compression venous ultrasound with Color Doppler imaging. Utilizing real-time ultrasonic imaging multiple real time high-resolution ultrasonic images with compression and noncompression maneuvers of the deep ve nous system in addition to color doppler imaging were performed from the common femoral vein through the proximal calf veins. FINDINGS: Currently there is normal compressibility of the deep venous system from the common femoral vein through the proximal calf veins. No current evidence of acute thrombosis is identified. Impression: No evidence of deep venous thrombus. ACT 112: Negative or not required by law. Electronically signed by: Ehsan Gamino M.D. 07/20/2021 9:48 PM Chest X-Ray 07/23/21 07:00 XR chest 1V portable CLINICAL HISTORY: f/u pna TECHNIQUE: Single frontal radiograph of the chest was obtained. Comparison: Comparison is made to chest one view 07/19/2021 FINDINGS: No lines and tubes are seen. The cardiomediastinal silhouette is normal. Interval improvement in multifocal airspace opacities. There is atelectasis in the left lung base. No evidence of pleural effusion or pneumothorax. IMPRESSION: Interval improvement in multifocal airspace opacities. ACT 112: Negative or not required by law. Electronically signed by: James Pisano M.D. 07/23/2021 10:24 AM Hospital Course (1) Bacteremia: - 71yo male with COPD/Asthma presenting with 2.5 weeks of progressive SOB, dry cough as well as body aches and fatigue. - Patient found to be POSITIVE for influenza A. Out of window for tamiflu - He has not received his Influenza vaccine this year. -- has grandson visit on the weekend who also tested + for influenza A (2 weekends ago was visiting) - RSV/COVID negative Blood cultures 1 bottle each set from admission with on staph hominis and one staph capitis both coag neg staph. PCR negative for MRSA. Nasal NEGATIVE Repeat BCx 07/21 NGTD after 24 hours Given both coag neg staph and different normal skin gerhard do anticipate this is contaminate. However recommend that repeat blood cultures be drawn in 7-10 days with lab slip provided. Also advised on signs/symptoms to monitor for if needing to return to ED Does have some skin issues with superficial abrasions mostly due to immobility and catching skin/tissue on his recliner chair Will cover from a respiratory perspective which will give some skin coverage. However if repeat BCx positive would likely need IV Abx Afebrile, WBC elevated but on steroids, decreasing --> non-toxic appearing ECHO w/o vegetation (2) Influenza: - Supportive care, tx pneumonia as below (3) Pneumonia: Suspect concomitant bacterial PNA given consolidation on CXR, elevation of procalcitonin 2.27. Lactic 1.6 wnl * Sputum culture ordered -- normal gerhard Initially treated with IV Abx for CAP (Rocephin/Doxy) - will complete a full course of Doxycycline and Cefdinir Utilized steroids and will taper Prednisone over next few days Was initially hypoxic on arrival but was able to wean to RA prior to discharge. Patient does not ambulate currently only pivots from chair to bedside toilet to chair so unable to perform 2-step. -- Patient was removed from O2 and checked periodically for O2 saturations and maintained 93-94% Echo - normal LV size/systolic function. EF 60-65%, No regional wma. Mild LVH. No significant valvular stenosis or regurgitation. Type I diastolic dysfunction (4) COPD (chronic obstructive pulmonary disease): Patient with COPD - on home Symbicort and Albuterol. Suspect COPD exacerbation in setting of influenza illness contributing to patient's SOB as well. Treatment as above (5) Dyslipidemia: Chronic. Continue Simvastatin 20mg po daily (6) HTN (hypertension): Chronic. Continue lisinopril, resumed lasix (7) Gait abnormality: Patient is reportedly quite immobile at home. He spends much of his time in his chair and has not been out of the house for over a year. He has some home nursing notes. Does not wish to receive PT here. Of note, has been quite immobile. Had Venous Doppler B/L LE last year with same issue/swelling that was negative --> repeat NEGATIVE --> Did have some trauma with recliner chair but pulses palpable but diminished (8) Prediabetes: A1c 5.8 Continue metformin 500mg BID Patient largely immobile at baseline. Plans to work on mobility but did not was PT here or rehab. Agrees to home nursing. Recommend repeat BCx as outpatient with lab slip provided. Complete Abx for respiratory component. If symptoms worsen or BCx positive may need IV Abx treatment Home Health Attestation I certify that this patient is under my care and that I, or a physicians plastic surgery assistant working with me, had a face to-face encounter that meets the home health [id number] encounter requirements with this patient. The encounter with the patient was in whole, or in part, for the following medical condition, which is the primary reason for home health care (list medical condition): RN; IV abx; bacteremia I certify that, based on my findings, the following services are medically necessary home health services: My clinical findings support the need for the above services because: Skilled Nsg Assessment Skilled Nsg Assessment Surgical Incision / Wound Skilled Nsg Instruction New Medications Further, I certify that my clinical findings support that this patient is homebound (i.e. absences from home require considerable and taxing effort and are for medical reasons or jain services or infrequently or of short duration when for other reasons) because: Certification for Home Health Services: Based on the above findings, I certify that this patient is confined to the home and needs intermittent intermediate care, physical therapy and/or speech therapy or continues to need occupational therapy. The patient is under my care, and I have initiated the establishment of the plan of care. This patient will be followed by a physician who will periodically review the plan of care. Total Time Total Time Spent Total Time Spent (In Minutes): Spent greater than 30 minutes preparing patient for discharge. This includes discussion with patient/family, assessment, intervention, medication reconciliation, and coordination of care. Discharge Plan Discharge Items Patient Disposition: Home - Self-Care Reason For Visit: SOB, INFLUENZA Discharge Diagnosis: Influenza and COPD Exacerbation Activity: Per Instructions section Lifting: Gradually increase as tolerated Exercise/Sports: Gradually increase as tolerated Non-emergency contact: Primary Care Provider Call non-emergency contact if: you have any medication questions, your symptoms worsen and you have a fever Follow-up/Referrals: Harlan Osorio MD [Primary Care Provider] - 08/01/21 1:30 pm (You will be seeing Kannan Faria PA-C) Diet: Carb Consistent or DM2 and Heart Healthy Ambulatory Orders: Blood Culture (Routine) Timeframe: 1 Week Location: Determined by Patient Ordered By: Nancy Grande Attending Provider Instructions: Blood Cultures: - Your blood cultures on admission show staphylococcus capitis and a different type called hominis. Both of these bacteria are commonly found on the skin and are likely just contaminating the blood cultures. We did repeat these blood cultures here in the hospital and both do not show any further organisms growing. - Even though this is likely a contaminated blood culture. Would recommend to have repeat blood cultures obtained in 1-2 weeks (we will provide a lab slip). You can get the labs done anywhere you normally get labs with results to your family doctor. - However, if you start to feel like you are feeling worse (generalized illness) or develop a fever you may need to change back to IV antibiotics and should get checked out. Pneumonia, Influenza, and COPD Exacerbation: - You were found to have influenza (the flu) and suspect having a bacterial pneumonia and also triggering a bronchitis. - You will continue on oral antibiotics to treat the pneumonia. These antibiotics will cover some skin organisms but if start to feel worse like discussed above you may need to go back to IV antibiotics - Take Doxycycline 100 mg twice a day to complete treatment. You had a dose today in the hospital so take only one dose this evening. -- Start Cefdinir 300 mg twice a day to complete the treatment. You had a dose today so only one dose this evening as well. - You can continue to use Mucinex to try and help thin out mucous. - We will also taper down on Prednisone. Start this tomorrow as you had a dose today. -- Take 40 mg on 07/25 and 07/26. Take 30 mg on 07/27 and 07/28. Take 20 mg on 07/29 and 2/20. Take 10 mg on 07/31 and 08/01 - We checked your oxygen levels and you do not require oxygen at this time - Would slowly work on getting more activity but you will want to take it easy for a bit. Having the flu and pneumonia can make you weak and tired. Would encourage to do some strengthing exercises of the legs when in the chair and to slowly work on getting more mobile Wounds: - Recommend to keep the open areas covered with dressings. Recommend follow-up with wound care clinic to keep an eye on these. The home nurses you have coming in for dressing changes before can assist with this - The wound care clinic number is [phone] Pending Studies at Discharge: No Stand-Alone Forms: My [facility] [employer], Smoking Cessation Medications and DC Order Prescriptions: New prednisone 10 mg tablet 10 mg PO DAILY Qty: 20 RF: 0 guaifenesin [Mucinex] 600 mg Tablet Extended Release 12hr 1,200 mg PO Q12 7 Days Qty: 28 RF: 0 doxycycline hyclate 100 mg capsule 100 mg PO BID Qty: 13 RF: 0 cefdinir 300 mg capsule 300 mg PO BID Qty: 13 RF: 0 Continued Symbicort 160-4.5 mcg/actuation HFA aerosol inhaler 2 puff INH BID Qty: 30.6 RF: 3 sertraline 50 mg tablet 50 mg PO DAILY Qty: 90 RF: 3 albuterol sulfate [Ventolin HFA] 90 mcg/actuation HFA aerosol inhaler 1 - 2 puff INH Q4H PRN (Reason: shortness of breath) Qty: 54 RF: 1 lisinopril 20 mg tablet 20 mg PO DAILY Qty: 90 RF: 3 metformin 500 mg tablet 500 mg PO BID Qty: 180 RF: 3 simvastatin [Zocor] 20 mg tablet 20 mg PO QPM Qty: 90 RF: 3 furosemide 20 mg tablet 20 mg PO DAILY Qty: 90 RF: 3 potassium chloride 10 mEq capsule, extended release 10 meq PO DAILY Qty: 90 RF: 3 aspirin [Adult Aspirin Regimen] 81 mg tablet,delayed release (DR/EC) 81 mg PO QPM RF: 0 multivitamin tablet 1 tab PO DAILY RF: 0 No Action (DME) Wheelchair (Manual) Device See Rx Instructions .Route Qty: 1 RF: 0 (DME) Wheeled Walker Misc See Rx Instructions .Route Qty: 1 RF: 0 Discharge Orders: Discharge Order (Routine); Ordered 07/24/21 Ordered By: Nancy Armenta Admission Data Admit Date/Time: 07/19/21 22:41 Attending Provider: Syd Cruz. Admit Provider: Sabrina Moss Primary Care Provider: Harlan Osorio Other Providers: Sabrina Moss ; [facility] Other Interventions: Discharge Summary Assessment (RN) Last Done: 07/24/21 14:09 Supervising Physician Co-Signing Physician Notes I personally saw and examined the patient. I verified all gilman points and agree with Nancy Armenta PA-C with the following exceptions and/or additions: 71 year old admission for shortness of breath. Diagnosed with influenza, PNA and COPD exacerbation. O/E mild expiratory wheezing, no respiratory distress A/P Medically stable for discharge, Agree with finishing antibiotics, steroids as above. Discussed follow up with the patient. Coding Level of Care Code D/C DAY MANAGEMENT >30 MINS Diagnoses Bacteremia R78.81 Influenza J11.1 Pneumonia J18.9 COPD (chronic obstructive pulmonary disease) J44.9 Dyslipidemia E78.5 HTN (hypertension) I10 Gait abnormality R26.9 Prediabetes R73.03
== END 2021-07-24 15:17 | disposition home or self-care (01) | DRG 194 ==
LOC: EDSEX → ED 19:43 → 3E 22:41 → SUATTDRO 22:41 → 3E 23:33

== ENCOUNTER 2022-07-29 20:42 | Inpatient (IN) ==
[2022-07-29 21:51] LABS: Basophils # (auto) 0.04 K/uL (0-0.2); Basophils % (auto) 0.4 %; Eosinophils # (auto) 0.24 K/uL (0-0.50); Eosinophils % (auto) 2.6 %; Hematocrit (blood only) 41.3 % (42.0-52.0); Hemoglobin 13.6 g/dl (14.0-18.0); Immature Granulocytes # (auto) 0.05 K/uL (0.01-0.20); Immature Granulocytes % (auto) 0.5 %; Lymphocytes # (auto) 1.39 K/uL (1.2-3.4); Lymphocytes % (auto) 14.8 %; Mean Corpuscular Hemoglobin 29.6 pg (25.0-34.0); Mean Corpuscular Hgb Conc 32.9 g/dL (32.0-36.0); Mean Platelet Volume 9.9 fL (9.4-12.4); Monocytes # (auto) 0.76 K/uL (0.11-0.59); Monocytes % (auto) 8.1 %; Neutrophils # (auto) 6.93 K/uL (1.40-6.50); Neutrophils % (auto) 73.6 %; Platelet Count 328 K/uL (130-400); RDW Coefficient of Variation 13.4 % (11.5-14.5); RDW Standard Deviation 43.8 fL (36.4-46.3); Red Blood Count 4.59 M/uL (4.70-6.10); White Blood Count 9.41 K/ul (4.8-10.8)
[2022-07-29] MEDS ORDERED: CEFEPIME 2,000 MG/20 ML VIAL IV STA (21:54)
[2022-07-29 22:06] LABS: Albumin Globulin Ratio 1.3 (0.9-2); Albumin Level 4.4 gm/dl (3.4-5.0); BUN Creatinine Ratio 14.9 (10-20); Bilirubin,Total 0.7 mg/dl (0.2-1.0); Calcium 9.9 mg/dl (8.5-10.1); Creatinine Clr Calc Pharmacy 44.5 ml/min; Est GFR (African American) 35.5 ml/min; Est GFR (Non-African American) 30.7 ml/min; Globulin 3.3 gm/dl (2.5-4.0); Potassium 5.3 mmol/L (3.5-5.1); Total Protein 7.7 gm/dl (6.0-8.3)
[2022-07-29] MEDS ORDERED: SODIUM CHLORIDE 0.9% 1000ML 500 ML IV ONE (22:20)
--- NOTE | 2022-07-29 22:20 | Emergency Department Note ---
History of Present Illness General Chief complaint: Seizure Stated complaint: SEIZURE Time Seen by Provider: 07/29/22 21:30 History of Present Illness This 72-year-old male currently on Bactrim for lower leg cellulitis presents to the ER for seizure tonight. Patient does not have a history of seizures. Patient does not recall the events but the was present. states that he had seizure-like activity for several minutes and then was confused. When EMS arrived he was no longer having a seizure. Patient complains of lower leg infection and right groin pain. Patient denies chest pain, dyspnea, fevers, vomiting, diarrhea, flulike illness. Home Medications Medication Instructions Recorded Confirmed Type multivitamin 1 tab PO DAILY 03/07/19 07/29/22 History Wheelchair (Manual) #1 ea 07/28/21 07/29/22 Rx Wheeled Walker #1 ea 07/28/21 07/29/22 Rx furosemide 20 mg tablet 20 mg PO DAILY #90 tabs 08/18/21 07/29/22 Rx potassium chloride 10 mEq 10 meq PO DAILY #90 caps 08/18/21 07/29/22 Rx capsule,extended release compr.stocking,knee,long,large #12 ea 09/27/21 07/29/22 Rx celecoxib 100 mg capsule (Celebrex) 100 mg PO BID PRN pain #180 caps 10/06/21 07/29/22 Rx sertraline 50 mg tablet 50 mg PO DAILY #90 tabs 11/27/21 07/29/22 Rx lisinopril 20 mg tablet 20 mg PO DAILY #90 tabs 12/20/21 07/29/22 Rx docusate sodium 100 mg capsule 100 mg PO BID #60 caps 06/20/22 07/29/22 Rx (Colace) sulfamethoxazole 800 1 tab PO BID 10 days #20 tabs 07/25/22 07/29/22 Rx mg-trimethoprim 160 mg tablet (Bactrim DS) albuterol sulfate 90 mcg/actuation 1 - 2 puff inhalation Q4H PRN 07/27/22 07/29/22 Rx aerosol inhaler (Ventolin HFA) shortness of breath #8.5 grams metformin 500 mg tablet 500 mg PO BID 07/29/22 07/29/22 History simvastatin 20 mg tablet 20 mg PO QPM 07/29/22 07/29/22 History Allergies Allergy/AdvReac Type Severity Reaction Status Date / Time cheese Allergy Unknown SICK TO Verified 07/29/22 22:01 STOMACH Penicillins Allergy Unknown RASH Verified 07/29/22 22:01 Past Med/Surg History Medical History Acute hypoxemic respiratory failure Asthma COPD (chronic obstructive pulmonary disease) Diverticulosis Dyslipidemia GERD (gastroesophageal reflux disease) HTN (hypertension) Influenza Pneumonia Pneumonia Sleep apnea Surgical History H/O inguinal hernia repair H/O oral surgery History of throat surgery S/P partial colectomy S/P tonsillectomy and adenoidectomy Family History Other Adopted Family history unknown Social History Smoking Status: Former smoker Tobacco Type: Cigarettes Second Hand Exposure: No; Hx Alcohol Use: No Hx Substance Use: No Preferred Language: Dutch Communication Ability: Effective Visual Impairment: No Limitations Hearing Ability: Normal Critical Systems Technician Required: No Beliefs That Will Affect Care: None marital status: Current Living Situation: Spouse and Family current occupational status: unemployed and disabled Feels Safe at Home: Yes Childhood Exposure to Second-Hand Smoke: Yes during the past year weight has: remained stable Dental Care, Regularly: No Physical Activity Frequency: Does not Exercise Seatbelt Use: always Sunscreen Use: No Assistive Devices: Walker Review of Systems A total of 10 systems reviewed and were otherwise negative Physical Exam Vital Signs Vital Signs - 24 hr 07/29/22 20:46 07/29/22 20:45 07/29/22 21:03 Temperature 36.9 C Temperature Source Oral Pulse Rate 116 H 115 H Pulse Rate from SpO2 Sensor 117 H Respiratory Rate 16 17 Respiratory Effort / Characteristics Non-Labored Spontaneous Respiratory Depth Normal Respiratory Pattern Regular Blood Pressure 106/45 L Blood Pressure Mean 65 Pulse Oximetry 93 93 Oxygen Delivery Method Room Air Room Air Sepsis Recent Fever Within 48 Hours No Sepsis New/Unexplained Change in Mental Status No Sepsis Action Taken by Nursing No Action Required 07/29/22 21:30 07/29/22 22:00 07/29/22 21:02 Temperature Temperature Source Pulse Rate 111 H 115 H 115 H Pulse Rate from SpO2 Sensor 111 H Respiratory Rate 27 H 19 Respiratory Effort / Characteristics Respiratory Depth Respiratory Pattern Blood Pressure Blood Pressure Mean Pulse Oximetry 93 Oxygen Delivery Method Sepsis Recent Fever Within 48 Hours Sepsis New/Unexplained Change in Mental Status Sepsis Action Taken by Nursing 07/29/22 22:06 07/29/22 22:06 07/29/22 22:30 Temperature Temperature Source Pulse Rate 116 H 111 H Pulse Rate from SpO2 Sensor 114 H Respiratory Rate 25 H 26 H Respiratory Effort / Characteristics Respiratory Depth Respiratory Pattern Blood Pressure 104/56 L Blood Pressure Mean 72 Pulse Oximetry 92 Oxygen Delivery Method Sepsis Recent Fever Within 48 Hours Sepsis New/Unexplained Change in Mental Status Sepsis Action Taken by Nursing 07/29/22 22:30 07/29/22 23:50 07/29/22 23:50 Temperature Temperature Source Pulse Rate 108 H Pulse Rate from SpO2 Sensor Respiratory Rate 20 Respiratory Effort / Characteristics Respiratory Depth Respiratory Pattern Blood Pressure 117/51 L 85/52 L Blood Pressure Mean 73 63 Pulse Oximetry Oxygen Delivery Method Sepsis Recent Fever Within 48 Hours Sepsis New/Unexplained Change in Mental Status Sepsis Action Taken by Nursing 07/30/22 00:00 07/30/22 00:00 Temperature Temperature Source Pulse Rate 109 H Pulse Rate from SpO2 Sensor 108 H Respiratory Rate 20 Respiratory Effort / Characteristics Respiratory Depth Respiratory Pattern Blood Pressure 105/59 L Blood Pressure Mean 74 Pulse Oximetry 94 Oxygen Delivery Method Sepsis Recent Fever Within 48 Hours Sepsis New/Unexplained Change in Mental Status Sepsis Action Taken by Nursing VITALS: Vitals are noted on the nurse's note and reviewed by myself. Vital signs reviewed GENERAL: Elderly male with family present, in no acute distress, nondiaphoretic, well-developed well-nourished. SKIN: Venous stasis with pressure ulcers and excoriation to lower legs concerning for secondary infection, back and abdomen with excoriated areas as patient states he is itchy, the rest of the skin was without rashes, or bruising. There is no tenting of the skin. Capillary reflex less than 2 sec onds. HEAD: Normocephalic atraumatic. EARS: External auditory canals clear, EYES: Pupils equal round and reactive to light and accommodation. Conjunctivae without injection, sclerae without icterus. Extraocular movements intact. NOSE: Patent, turbinates without inflammation or discharge. MOUTH: Mucous membranes moist. Pharynx without erythema or exudate. Uvula midline. Airway patent. Tongue does not deviate. NECK: Supple without nuchal rigidity. No lymphadenopathy. No thyromegaly. Cervical spine is nontender. No JVD. HEART: Regular rate and rhythm LUNGS: Clear to auscultation bilaterally without wheezes, rales or rhonchi. No retractions or accessory muscle use. ABDOMEN: Positive bowel sounds x 4. Normal tympanic percussion. Soft, right groin tender to palpation, without masses or organomegaly. Peres sign negative. No guarding or rebound tenderness. No CVA tenderness MUSCULOSKELETAL: No muscle atrophy noted. NEURO: Patient was alert and oriented to person place and time. Normal sensation to light and sharp touch. No focal neurological deficits. Course Administered Medications Vancomycin HCl 2,750 mg/ (Sodium Chloride) 555 mls @ 200 mls/hr IV NOW ONE Stop: 07/30/22 02:19 Last Admin: 07/30/22 00:09 Dose: 200 mls/hr Documented By: YUMIKO Miscellaneous Information (Vancomycin Consult Active) 1 each N/A UD PRN PRN Reason: Consult Stop: 08/28/22 23:32 Last Admin: 07/30/22 00:09 Dose: 1 each Documented By: LMP Discontinued Medications Cefepime HCl (Maxipime) 2,000 mg in 20 mls @ 5 mls/min IV NOW STA; Protocol Stop: 07/29/22 21:57 Last Admin: 07/30/22 00:09 Dose: Not Given Documented By: YUMIKO Sodium Chloride (Nss 1000ml) 500 mls @ 999 mls/hr IV .Q31M ONE Stop: 07/29/22 22:50 Last Infusion: 07/30/22 00:10 Dose: 0 mls/hr Documented By: Admin: 07/29/22 23:33 Dose: 999 mls/hr Documented By: LMP Ceftriaxone Sodium (Rocephin) 2,000 mg in 70 mls @ 140 mls/hr IV NOW STA Stop: 07/30/22 00:02 Last Infusion: 07/30/22 00:17 Dose: 0 mls/hr Documented By: Admin: 07/29/22 23:46 Dose: 140 mls/hr Documented By: YUMIKO Medical Decision Making Medical Records Attestation: I reviewed the patient's medical records. Home Medications Current Medication List: was personally reviewed by me Laboratory Data Attestation: I reviewed the patient's lab results. 07/29/22 21:07 07/29/22 21:07 Lab Results 07/29/22 07/29/22 07/29/22 Range/Units 21:07 21:07 21:07 WBC 9.41 (4.8-10.8) K/ul RBC 4.59 L (4.70-6.10) M/uL Hgb 13.6 L (14.0-18.0) g/dl Hct 41.3 L (42.0-52.0) % MCV 90.0 (80.0-100.0) fL MCH 29.6 (25.0-34.0) pg MCHC 32.9 (32.0-36.0) g/dL RDW Std Deviation 43.8 (36.4-46.3) fL RDW Coeff of Jocelyn 13.4 (11.5-14.5) % Plt Count 328 (130-400) K/uL MPV 9.9 (9.4-12.4) fL Immature Gran % (Auto) 0.5 % Neut % (Auto) 73.6 % Lymph % (Auto) 14.8 % [place] % (Auto) 8.1 % Eos % (Auto) 2.6 % Baso % (Auto) 0.4 % Neut # (Auto) 6.93 H (1.40-6.50) K/uL Lymph # (Auto) 1.39 (1.2-3.4) K/uL [place] # (Auto) 0.76 H (0.11-0.59) K/uL Eos # (Auto) 0.24 (0-0.50) K/uL Baso # (Auto) 0.04 (0-0.2) K/uL Immature Gran # (Auto) 0.05 (0.01-0.20) K/uL Sodium 136 (136-145) mmol/L Potassium 5.3 H (3.5-5.1) mmol/L Chloride 103 (98-107) mmol/L Carbon Dioxide 21 (21-32) mmol/L Anion Gap 12 H (3-11) BUN 31 H (6-23) mg/dl Creatinine 2.08 H (0.6-1.4) mg/dl Est Cr Clr Drug Dosing 44.5 ml/min Est GFR ( Amer) 35.5 ml/min Est GFR (Non-Af Amer) 30.7 ml/min BUN/Creatinine Ratio 14.9 (10-20) Glucose 110 H (70-99(Fasting)) mg/dl Lactate (0.4-2.0) mmol/L Calcium 9.9 (8.5-10.1) mg/dl Magnesium 1.9 (1.7-2.4) mg/dl Total Bilirubin 0.7 (0.2-1.0) mg/dl AST 18 (13-39) U/L ALT 14 (7-52) U/L Alkaline Phosphatase 71 (34-104) U/L Total Creatine Kinase 76 (30-223) U/L Troponin I High Sens 9.6 (0-20) pg/ml Total Protein 7.7 (6.0-8.3) gm/dl Albumin 4.4 (3.4-5.0) gm/dl Globulin 3.3 (2.5-4.0) gm/dl Albumin/Globulin Ratio 1.3 (0.9-2) Procalcitonin (0-0.5) ng/ml TSH (0.300-4.500) uIu/ml Prolactin ng/ml 07/29/22 07/29/22 07/29/22 Range/Units 21:07 21:07 21:07 WBC (4.8-10.8) K/ul RBC (4.70-6.10) M/uL Hgb (14.0-18.0) g/dl Hct (42.0-52.0) % MCV (80.0-100.0) fL MCH (25.0-34.0) pg MCHC (32.0-36.0) g/dL RDW Std Deviation (36.4-46.3) fL RDW Coeff of Jocelyn (11.5-14.5) % Plt Count (130-400) K/uL MPV (9.4-12.4) fL Immature Gran % (Auto) % Neut % (Auto) % Lymph % (Auto) % [place] % (Auto) % Eos % (Auto) % Baso % (Auto) % Neut # (Auto) (1.40-6.50) K/uL Lymph # (Auto) (1.2-3.4) K/uL [place] # (Auto) (0.11-0.59) K/uL Eos # (Auto) (0-0.50) K/uL Baso # (Auto) (0-0.2) K/uL Immature Gran # (Auto) (0.01-0.20) K/uL Sodium (136-145) mmol/L Potassium (3.5-5.1) mmol/L Chloride (98-107) mmol/L Carbon Dioxide (21-32) mmol/L Anion Gap (3-11) BUN (6-23) mg/dl Creatinine (0.6-1.4) mg/dl Est Cr Clr Drug Dosing ml/min Est GFR ( Amer) ml/min Est GFR (Non-Af Amer) ml/min BUN/Creatinine Ratio (10-20) Glucose (70-99(Fasting)) mg/dl Lactate (0.4-2.0) mmol/L Calcium (8.5-10.1) mg/dl Magnesium (1.7-2.4) mg/dl Total Bilirubin (0.2-1.0) mg/dl AST (13-39) U/L ALT (7-52) U/L Alkaline Phosphatase (34-104) U/L Total Creatine Kinase (30-223) U/L Troponin I High Sens (0-20) pg/ml Total Protein (6.0-8.3) gm/dl Albumin (3.4-5.0) gm/dl Globulin (2.5-4.0) gm/dl Albumin/Globulin Ratio (0.9-2) Procalcitonin < 0.05 (0-0.5) ng/ml TSH 0.890 (0.300-4.500) uIu/ml Prolactin 69.21 ng/ml 07/29/22 Range/Units 23:19 WBC (4.8-10.8) K/ul RBC (4.70-6.10) M/uL Hgb (14.0-18.0) g/dl Hct (42.0-52.0) % MCV (80.0-100.0) fL MCH (25.0-34.0) pg MCHC (32.0-36.0) g/dL RDW Std Deviation (36.4-46.3) fL RDW Coeff of Jocelyn (11.5-14.5) % Plt Count (130-400) K/uL MPV (9.4-12.4) fL Immature Gran % (Auto) % Neut % (Auto) % Lymph % (Auto) % [place] % (Auto) % Eos % (Auto) % Baso % (Auto) % Neut # (Auto) (1.40-6.50) K/uL Lymph # (Auto) (1.2-3.4) K/uL [place] # (Auto) (0.11-0.59) K/uL Eos # (Auto) (0-0.50) K/uL Baso # (Auto) (0-0.2) K/uL Immature Gran # (Auto) (0.01-0.20) K/uL Sodium (136-145) mmol/L Potassium (3.5-5.1) mmol/L Chloride (98-107) mmol/L Carbon Dioxide (21-32) mmol/L Anion Gap (3-11) BUN (6-23) mg/dl Creatinine (0.6-1.4) mg/dl Est Cr Clr Drug Dosing ml/min Est GFR ( Amer) ml/min Est GFR (Non-Af Amer) ml/min BUN/Creatinine Ratio (10-20) Glucose (70-99(Fasting)) mg/dl Lactate 1.8 (0.4-2.0) mmol/L Calcium (8.5-10.1) mg/dl Magnesium (1.7-2.4) mg/dl Total Bilirubin (0.2-1.0) mg/dl AST (13-39) U/L ALT (7-52) U/L Alkaline Phosphatase (34-104) U/L Total Creatine Kinase (30-223) U/L Troponin I High Sens (0-20) pg/ml Total Protein (6.0-8.3) gm/dl Albumin (3.4-5.0) gm/dl Globulin (2.5-4.0) gm/dl Albumin/Globulin Ratio (0.9-2) Procalcitonin (0-0.5) ng/ml TSH (0.300-4.500) uIu/ml Prolactin ng/ml Imaging Data Attestation: I personally reviewed and interpreted this imaging study as follows: MDM Narrative Prior records/ancillary studies reviewed. Patient placed in seizure precautions immediately upon arrival. Nursing notes reviewed. Additional history obtained from family The patient's history was concerning for a possible seizure. Differential diagnosis: Etiologies such as side effect of Bactrim, infection, hypoglycemia, electrolyte abnormalities, cardiac sources, intracerebral event, trauma, toxicologic, neurologic, as well as others were entertained. Physical examination: As above. No signs of trauma. ER treatment provided: An order was placed for continuous cardiac monitoring. The monitor shows a rate of 60-1 50 with a sinus rhythm per my interpretation. IV fluids, cefepime On reassessment the patient felt better. Diagnostics interpretation by me: ECG: Ordered for seizure Normal sinus, poor baseline, incomplete right bundle, Q waves in inferior leads, rate of 117. Impression sinus tachycardia with incomplete right bundle branch block with Q waves in inferior leads interpreted by myself. The labs Independently Interpreted by myself revealed prolactin 69 Hyperkalemia, acute kidney injury Imaging studies: CT HEAD: No ICH, mass effect or edema. No evidence of acute cortical stroke. Periventricular small vessel ischemic change. Visualized sinuses and mastoid air cells are clear. Radiologist:Kirby Carbjaal MD CT ABDOMEN & PELVIS Without Contrast: No acute intra-abdominal process No acute solid organ process The gallbladder is normal The stomach, small bowel, appendix and large bowel are normal The urinary bladder and prostate gland are normal Radiologist: James Carbajal MD Chest x-ray with no acute consolidation, pneumothorax or free air per my interpretation Consultation: A consultation was placed with the hospitalist. The case was discussed and diagnostics were reviewed. Patient will be admitted to the medical service.. The patient was counseled not to drive until cleared in follow-up and seizure precautions given. I gave my usual and customary discussion regarding these issues. 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 Exam and history are concerning for cellulitis to the lower legs who had a seizure tonight that could be related to the Bactrim. He also is acute kidney injury and hyperkalemia most likely related to the Bactrim. Prolactin level was elevated. Patient started antibiotics. Blood cultures were sent. Case was discussed with the admitting hospitalist. Patient will be admitted and is agreeable. Labs and diagnostics were independently interpreted by myself. The chart was completed utilizing [employer] Speech voice recognition software. Grammatical errors, random word insertions, pronoun errors, and incomplete sentences are an occassional consequence of this system due to software limitations, ambient noise, and hardware issues. Any formal questions or concer ns about the content, text, or information contained within the body of this dictation should be directly addressed to the physician personal care assistant for clarification. Attending Attestation: I Freddy Leal MD independently saw and evaluated this patient and agree with history and physical is otherwise documented by the physician personal care assistant. See their note for full details. Patient resting in bed in no acute distress. Evidence of significant stasis and likely cellulitic changes lower extremities noted. Given the laboratory testing with elevated prolactin do question if tonight's event was a seizure. IV antibiotics given. His outpatient Bactrim with his LISA inhibitor likely causing some COBY. Given IV fluids. Will bring into the hospital given his constellation of multiple pathologies for further treatment at this time. Impression & Plan Seizure, Cellulitis, COBY (acute kidney injury), Acute hyperkalemia Discharge Plan Visit Data Chief Complaint: Seizure Stated Complaint: SEIZURE ED Provider: Freddy Leal ED Midlevel Provider: Franchesca Gutierrez Discharge Problem: Seizure, Cellulitis, COBY (acute kidney injury), Acute hyperkalemia Patient Disposition: Admitted As Inpatient Condition: Fair Forms Stand Alone Forms: My [facility] Prescriptions Prescriptions: No Action furosemide 20 mg tablet 20 mg PO DAILY Qty: 90 3RF potassium chloride 10 mEq capsule, extended release 10 meq PO DAILY Qty: 90 3RF Rx Instructions: to take with furosemide celecoxib [Celebrex] 100 mg capsule 100 mg PO BID PRN (Reason: pain) Qty: 180 3RF sertraline 50 mg tablet 50 mg PO DAILY Qty: 90 3RF lisinopril 20 mg tablet 20 mg PO DAILY Qty: 90 3RF docusate sodium [Colace] 100 mg capsule 100 mg PO BID Qty: 60 3RF sulfamethoxazole-trimethoprim [Bactrim DS] 800-160 mg tablet 1 tab PO BID 10 Days Qty: 20 0RF (DME) compr.stocking,knee,long,large Misc See Rx Instructions .Route Qty: 12 0RF Rx Instructions: to be worn daily. 15-20mmHg. Knee high (DME) Wheelchair (Manual) Device See Rx Instructions .Route Qty: 1 0RF Rx Instructions: Extra wide wheelchair with cushion and footplates (DME) Wheeled Walker Misc See Rx Instructions .Route Qty: 1 0RF Rx Instructions: standard 4 wheeled walker albuterol sulfate [Ventolin HFA] 90 mcg/actuation HFA aerosol inhaler 1 - 2 puff INH Q4H PRN (Reason: shortness of breath) Qty: 8.5 1RF multivitamin tablet 1 tab PO DAILY metformin 500 mg tablet 500 mg PO BID Rx Instructions: TAKE 1 TABLET TWICE DAILY simvastatin 20 mg tablet 20 mg PO QPM Referrals Referrals: ProHarlan MD [Primary Care Provider] -
[2022-07-29 22:50] LABS: Magnesium 1.9 mg/dl (1.7-2.4)
[2022-07-29 23:01] LABS: Troponin I High Sensitivity 9.6 pg/ml (0-20)
[2022-07-29] MEDS ORDERED: VANCOMYCIN CONSULT ACTIVE PRN (23:33)
[2022-07-29] MEDS ORDERED: cefTRIAXone SODIUM 2,000 MG/70 ML BAG IV STA (23:33)
[2022-07-29] MEDS ORDERED: VANCOMYCIN HCL 2,750 MG in SODIUM CHLORIDE 0.9% 500 ML IV ONE (23:33)
[2022-07-30 00:41] LABS: Appearance Urine Turbid (Clear); Bacteria Urine Automated Negative (Negative); Bilirubin Urine Negative (Negative); Blood Urine Negative (Negative); Cast Urine Automated 0 /lpf (0-5); Color Urine Yellow; Glucose Urine UA Negative (Negative); Ketones Urine Trace (Negative); Leukocyte Esterase Urine Trace (Negative); Nitrite Urine Negative (Negative); Protein Urine Negative (Negative); RBC Urine Automated 0-4 /hpf (0-4); Specific Gravity Urine 1.013 (1.000-1.030); Urobilinogen Urine Negative (Negative); pH Urine 5.5 (4.5-7.5)
[2022-07-30 00:54] LABS: Influenza A virus by PCR Negative (Neg); Influenza B virus by PCR Negative (Neg); RSV by PCR Negative (Neg)
[2022-07-30 01:09] LABS: SARS CoV2 RNA(COVID-19) Ceph POSITIVE (Negative)
--- NOTE | 2022-07-30 01:28 | History & Physical Report ---
Date of Service July 30, 2022 Assessment & Plan (1) Seizure-like activity: (2) Cellulitis of both lower extremities: (3) COBY (acute kidney injury): (4) Acute hyperkalemia: (5) Venous stasis: (6) GERD (gastroesophageal reflux disease): (7) COPD (chronic obstructive pulmonary disease): (8) Dyslipidemia: (9) HTN (hypertension): (10) Gait abnormality: (11) Benign localized hyperplasia of prostate with urinary obstruction: Plan Seizure-like activity- Witnessed by his of about 10 minutes duration with a brief episode of confusion afterwards Patient does remember his right hand and then arm shaking, and as he went to reach with his left arm to touch his right arm that is the last he remembers He did not have loss of bowel or bladder control. He has not had previous episodes of this type activity. He has been recently treated for cellulitis with Bactrim DS, which will be held He is also COVID-19 positive, but has no other pulmonary or GI symptoms, generalized weakness or other symptoms We will check an EEG When not placed on any antiseizure medications unless an additional episode occurs Consult neurology if work-up unclear COVID-19 positive- Unclear if causing any symptoms, and unclear if contributed to the seizure-like activity Will not actively treat at this time, but will place on COVID precautions Acute kidney injury/hyperkalemia- Creatinine 2.08 on admission, with base 1.01 Potassium 5.3 on admission He reports that he his appetite has been off over the past couple days while being treated for his lower extremity cellulitis He received 500 cc normal saline in the ED. He will be given additional 1 L of normal saline at 80 mils per hour Repeat laboratories in a.m. Hold lisinopril, furosemide and potassium chloride Diabetes mellitus- Hold metformin Place on Accu-Cheks before meals and at bedtime with NovoLog coverage SSI Hyperlipidemia- Continue simvastatin Depression/anxiety- Continue sertraline History of Present Illness Chief Complaint: The patient presents to the emergency department, after the patient's witnessed a approximate 10-minute episode of seizure-like activity followed by confusion earlier this evening. Primary Care Provider: Harlan Osorio MD The patient is a 72-year-old male with past medical history including bilateral lower extremity cellulitis, chronic venous stasis, COPD, influenza A, hypomagnesemia, COPD, GERD, dyslipidemia, hypertension, gait abnormality, vitamin D deficiency, asthma, prediabetes and BPH with LUTS. The patient has been treated for bilateral lower extremity cellulitis with Bactrim DS, which she is was taking twice a day. He reports that he still has a couple days left from the original prescription. Patient does not have a history of previous seizures. He denies any further episodes while in the ED. Significant abnormalities: COVID-19 positive, creatinine 2.08, potassium 5.3, glucose 110. CT head with no acute findings. CT abdomen and pelvis with no acute findings. Ultrasound venous Dopplers of bilateral lower extremities was negative for DVT bilaterally Allergies Allergy/AdvReac Type Severity Reaction Status Date / Time cheese Allergy Unknown SICK TO Verified 07/29/22 22:01 STOMACH Penicillins Allergy Unknown RASH Verified 07/29/22 22:01 Home Medications Medication Instructions Recorded Confirmed Type multivitamin 1 tab PO DAILY 03/07/19 07/29/22 History Wheelchair (Manual) #1 ea 07/28/21 07/29/22 Rx Wheeled Walker #1 ea 07/28/21 07/29/22 Rx furosemide 20 mg tablet 20 mg PO DAILY #90 tabs 08/18/21 07/29/22 Rx potassium chloride 10 mEq 10 meq PO DAILY #90 caps 08/18/21 07/29/22 Rx capsule,extended release compr.stocking,knee,long,large #12 ea 09/27/21 07/29/22 Rx celecoxib 100 mg capsule (Celebrex) 100 mg PO BID PRN pain #180 caps 10/06/21 07/29/22 Rx sertraline 50 mg tablet 50 mg PO DAILY #90 tabs 11/27/21 07/29/22 Rx lisinopril 20 mg tablet 20 mg PO DAILY #90 tabs 12/20/21 07/29/22 Rx docusate sodium 100 mg capsule 100 mg PO BID #60 caps 06/20/22 07/29/22 Rx (Colace) sulfamethoxazole 800 1 tab PO BID 10 days #20 tabs 07/25/22 07/29/22 Rx mg-trimethoprim 160 mg tablet (Bactrim DS) albuterol sulfate 90 mcg/actuation 1 - 2 puff inhalation Q4H PRN 07/27/22 07/29/22 Rx aerosol inhaler (Ventolin HFA) shortness of breath #8.5 grams metformin 500 mg tablet 500 mg PO BID 07/29/22 07/29/22 History simvastatin 20 mg tablet 20 mg PO QPM 07/29/22 07/29/22 History Past Med/Surg History Medical History (Updated 07/30/22 @ 04:01 by Sean Shields MD) Acute hypoxemic respiratory failure Asthma Cellulitis of both lower extremities COPD (chronic obstructive pulmonary disease) Diverticulosis Dyslipidemia GERD (gastroesophageal reflux disease) HTN (hypertension) Influenza Pneumonia Pneumonia Sleep apnea Surgical History H/O inguinal hernia repair H/O oral surgery History of throat surgery for sleep apnea- Dr. Arriola S/P partial colectomy S/P tonsillectomy and adenoidectomy Family History Other Adopted Family history unknown Social History Smoking Status: Former smoker Tobacco Type: Cigarettes Second Hand Exposure: No; Hx Alcohol Use: No Hx Substance Use: No Preferred Language: Polish Communication Ability: Effective Visual Impairment: No Limitations Hearing Ability: Normal Framing Consultant Required: No Beliefs That Will Affect Care: None marital status: Current Living Situation: Spouse and Family current occupational status: unemployed and disabled Feels Safe at Home: Yes Childhood Exposure to Second-Hand Smoke: Yes during the past year weight has: remained stable Dental Care, Regularly: No Physical Activity Frequency: Does not Exercise Seatbelt Use: always Sunscreen Use: No Assistive Devices: Walker Review of Systems Review of Systems: The patient denies chest pain, palpitations, shortness of breath, dyspnea on exertion, cough, sore throat, fevers, chills, sweats, nausea, vomiting, diarrhea , constipation, abdominal pain, pelvic pain, blood in urine or stool, dysuria, urinary frequency or urgency, lightheadedness, dizziness, headache, abnormal bruising or bleeding, imbalance, focal or generalized weakness, numbness or tingling in arms, generalized arthralgias or myalgias, back or neck pain, or night sweats. The review of systems is otherwise negative other than for that already noted above, and at least 10 systems have been reviewed. Physical Exam Physical Exam: The patient is awake, alert and oriented 3, well developed and well nourished, normocephalic and atraumatic, lying in bed and in no acute distress. HEENT--PERRL, EOMI, mucous membranes and oropharynx normal. Neck--supple. No JVD. No bruits. Thyroid normal, trachea midline, no adenopathy. Heart--normal S1 and S2. No murmurs, rubs or gallops. Lungs--clear bilaterally, no respiratory distress, no accessory muscle use. Abdomen--normal bowel sounds and soft. Nontender. Morbidly obese Extremities--chronic venous stasis dermatitis changes bilaterally, right greater than left. Mild erythema and pitting edema bilaterally Dermatologic--see above. Neurologic--cranial nerves II through XII grossly intact. Rheumatologic--normal range of motion. Psychiatric--normal affect. Results & Data Results & Data ([facility]) Vital Signs (Past 12 Hours) Vital Signs Temp Pulse Resp BP Pulse Ox O2 Del Method 07/30/22 00:00 109 H 20 94 07/30/22 00:00 105/59 L 07/29/22 23:50 108 H 20 07/29/22 23:50 85/52 L 07/29/22 22:30 117/51 L 07/29/22 22:30 111 H 26 H 92 07/29/22 22:06 116 H 25 H 07/29/22 22:06 104/56 L 07/29/22 21:02 115 H 07/29/22 22:00 115 H 19 07/29/22 21:30 111 H 27 H 93 07/29/22 21:03 115 H 17 93 07/29/22 20:45 Room Air 07/29/22 20:46 36.9 C 116 H 16 106/45 L 93 Room Air Laboratory Results Laboratory Results WBC 9.41 K/ul (4.8-10.8) 07/29/22 21:07 RBC 4.59 M/uL (4.70-6.10) L 07/29/22 21:07 Hgb 13.6 g/dl (14.0-18.0) L 07/29/22 21:07 Hct 41.3 % (42.0-52.0) L 07/29/22 21:07 MCV 90.0 fL (80.0-100.0) 07/29/22 21:07 MCH 29.6 pg (25.0-34.0) 07/29/22 21:07 MCHC 32.9 g/dL (32.0-36.0) 07/29/22 21:07 RDW Std Deviation 43.8 fL (36.4-46.3) 07/29/22 21:07 RDW Coeff of Jocelyn 13.4 % (11.5-14.5) 07/29/22 21:07 Plt Count 328 K/uL (130-400) 07/29/22 21:07 MPV 9.9 fL (9.4-12.4) 07/29/22 21:07 Immature Gran % (Auto) 0.5 % 07/29/22 21:07 Neut % (Auto) 73.6 % 07/29/22 21:07 Lymph % (Auto) 14.8 % 07/29/22 21:07 [place] % (Auto) 8.1 % 07/29/22 21:07 Eos % (Auto) 2.6 % 07/29/22 21:07 Baso % (Auto) 0.4 % 07/29/22 21:07 Neut # (Auto) 6.93 K/uL (1.40-6.50) H 07/29/22 21:07 Lymph # (Auto) 1.39 K/uL (1.2-3.4) 07/29/22 21:07 [place] # (Auto) 0.76 K/uL (0.11-0.59) H 07/29/22 21:07 Eos # (Auto) 0.24 K/uL (0-0.50) 07/29/22 21:07 Baso # (Auto) 0.04 K/uL (0-0.2) 07/29/22 21:07 Immature Gran # (Auto) 0.05 K/uL (0.01-0.20) 07/29/22 21:07 Sodium 136 mmol/L (136-145) 07/29/22 21:07 Potassium 5.3 mmol/L (3.5-5.1) H 07/29/22 21:07 Chloride 103 mmol/L (98-107) 07/29/22 21:07 Carbon Dioxide 21 mmol/L (21-32) 07/29/22 21:07 Anion Gap 12 (3-11) H 07/29/22 21:07 BUN 31 mg/dl (6-23) H 07/29/22 21:07 Creatinine 2.08 mg/dl (0.6-1.4) H 07/29/22 21:07 Est Cr Clr Drug Dosing 44.5 ml/min 07/29/22 21:07 Est GFR ( Amer) 35.5 ml/min 07/29/22 21:07 Est GFR (Non-Af Amer) 30.7 ml/min 07/29/22 21:07 BUN/Creatinine Ratio 14.9 (10-20) 07/29/22 21:07 Glucose 110 mg/dl (70-99(Fasting)) H 07/29/22 21:07 Lactate 1.8 mmol/L (0.4-2.0) 07/29/22 23:19 Calcium 9.9 mg/dl (8.5-10.1) 07/29/22 21:07 Magnesium 1.9 mg/dl (1.7-2.4) 07/29/22 21:07 Total Bilirubin 0.7 mg/dl (0.2-1.0) 07/29/22 21:07 AST 18 U/L (13-39) 07/29/22 21:07 ALT 14 U/L (7-52) 07/29/22 21:07 Alkaline Phosphatase 71 U/L (34-104) 07/29/22 21:07 Total Creatine Kinase 76 U/L (30-223) 07/29/22 21:07 Troponin I High Sens 9.6 pg/ml (0-20) 07/29/22 21:07 Total Protein 7.7 gm/dl (6.0-8.3) 07/29/22 21:07 Albumin 4.4 gm/dl (3.4-5.0) 07/29/22 21:07 Globulin 3.3 gm/dl (2.5-4.0) 07/29/22 21:07 Albumin/Globulin Ratio 1.3 (0.9-2) 07/29/22 21:07 Procalcitonin < 0.05 ng/ml (0-0.5) 07/29/22 21:07 TSH 0.890 uIu/ml (0.300-4.500) 07/29/22 21:07 Prolactin 69.21 ng/ml 07/29/22 21:07 Urine Color Yellow 07/30/22 00:23 Urine Appearance Turbid (Clear) A 07/30/22 00:23 Urine pH 5.5 (4.5-7.5) 07/30/22 00:23 Ur Specific [place] 1.013 (1.000-1.030) 07/30/22 00:23 Urine Protein Negative (Negative) 07/30/22 00:23 Urine Glucose (UA) Negative (Negative) 07/30/22 00:23 Urine Ketones Trace (Negative) H 07/30/22 00:23 Urine Blood Negative (Negative) 07/30/22 00:23 Urine Nitrite Negative (Negative) 07/30/22 00:23 Urine Bilirubin Negative (Negative) 07/30/22 00:23 Urine Urobilinogen Negative (Negative) 07/30/22 00:23 Ur Leukocyte Esterase Trace (Negative) H 07/30/22 00:23 Urine WBC (Auto) 1-5 /hpf (0-5) 07/30/22 00:23 Urine RBC (Auto) 0-4 /hpf (0-4) 07/30/22 00:23 U Hyaline Cast (Auto) 0 /lpf (0-5) 07/30/22 00:23 U Epithel Cells (Auto) 5-10 /lpf (0-5) H 07/30/22 00:23 Urine Bacteria (Auto) Negative (Negative) 07/30/22 00:23 Nasal Screen MRSA (PCR) Negative (Negative) 07/29/22 23:57 SARS-CoV-2 (PCR) POSITIVE (Negative) A* 07/29/22 23:57 Influenza Type A (PCR) Negative (Neg) 07/29/22 23:57 Influenza Type B (PCR) Negative (Neg) 07/29/22 23:57 RSV (RT-PCR) Negative (Neg) 07/29/22 23:57 Code Status & VTE Plan Code Status Full code VTE Prophylaxis Plan VTE Prophylaxis will be ordered: Yes PG Care Time/CCT Total # of Minutes Spent Total Time Spent with Patient: Total time spent is greater than 50% in coordination of care (as documented) at patient's floor/unit and/or counseling patient: Coding Level of Care Code 91447 INT INP/OBS CARE 75MIN Diagnoses Seizure-like activity R56.9 Cellulitis of both lower extremities L03.115; L03.116 COBY (acute kidney injury) N17.9 Acute hyperkalemia E87.5 Venous stasis I87.8 GERD (gastroesophageal reflux disease) K21.9 COPD (chronic obstructive pulmonary disease) J44.9 Dyslipidemia E78.5 HTN (hypertension) I10 Gait abnormality R26.9 Benign localized hyperplasia of prostate with urinary obstruction N40.1; N13.8
[2022-07-30] MEDS ORDERED: SODIUM CHLORIDE 0.9% 1000ML 1,000 ML IV SCH (01:30)
[2022-07-30] MEDS ORDERED: ONDANSETRON INJ 2 MG/ML 2 ML VIAL IV PRN (03:59)
[2022-07-30] MEDS ORDERED: GLUCOSE 10 TAB/TUBE PO PRN (03:59)
[2022-07-30] MEDS ORDERED: ALBUTEROL HFA 8 GM INHALER INH PRN (03:59)
[2022-07-30] MEDS ORDERED: DEXTROSE 50% 50 ML SYRINGE IV PRN (03:59)
[2022-07-30] MEDS ORDERED: CARBOHYDRATES FOR HYPOGLYCEMIA PO PRN (03:59)
[2022-07-30] MEDS ORDERED: GLUCAGON FOR INJ 1 MG VIAL SQ PRN (03:59)
[2022-07-30] MEDS ORDERED: ACETAMINOPHEN 325 MG TAB PO PRN (03:59)
[2022-07-30] MEDS ORDERED: GLUCOSE 40% GEL 15 GM TUBE PO PRN (03:59)
[2022-07-30] MEDS: CEFEPIME 2,000 MG in SYRINGE 0 ML IV SCH ×2 (06:25→21:07)
--- NOTE | 2022-07-30 07:50 | CT Scan Report ---
CT OF THE ABDOMEN AND PELVIS WITHOUT CONTRAST CLINICAL HISTORY: Lower abdominal pain. COMPARISON STUDY: Right inguinal ultrasound July 01, 2020. TECHNIQUE: Axial images of the abdomen and pelvis were obtained without IV contrast. Images were revi ewed in the axial, sagittal, and coronal planes. Automated exposure control was utilized for the renae dy. A dose lowering technique was utilized adhering to the principles of ALARA. FINDINGS: A few small nodules within the lower lungs are noted. The largest is a 5 mm right middle lo be nodule. No pneumatosis, free air or portal venous gas is present. Evaluation of the abdomen and pe lvis is suboptimal on this unenhanced exam. This study is also mildly compromised by motion artifact. Liver, spleen, adrenal glands and pancreas are unremarkable. There is no biliary or pancreatic ducta l dilatation. There is no peripancreatic or pericholecystic stranding. There is no hydronephrosis. Th ere are no urinary calculi. Water attenuation 2.7 cm lesion arising from the upper pole of the right kidney favors a cyst. There is a probable additional smaller cyst within the right kidney. No evidenc e for bowel obstruction. The caliber of small and large bowel are normal. There is no evidence for ac júnior appendicitis. No ascites is present. There is no lymphadenopathy. Prominent bilateral iliac chain lymph nodes are likely benign. Bladder is mildly distended. Severe right hip osteoarthritis is incid entally noted. There are no acute fractures within the visualized skeletal structures. IMPRESSION: 1. No acute process within the abdomen and pelvis on unenhanced exam. 2. No urinary calculi or hydronephrosis. 3. A few small lower lung nodules which are likely benign. Follow-up chest CT in 6 months to ensure s tability is recommended. ACT 112: Negative or not required by law. Electronically signed by: Fortino Martin M.D. 07/30/2022 7:48 AM
[2022-07-30 07:51] LABS: Estimated Average Glucose 123 mg/dl; Hemoglobin A1C 5.9 % (4.5-5.6)
--- NOTE | 2022-07-30 08:06 | Ultrasound Report ---
US venous doppler LE BI CLINICAL HISTORY: swelling, ? dvt TECHNIQUE: Bilateral lower extremity real-time compression venous ultrasound with Color Doppler imagi ng. Utilizing real-time ultrasonic imaging multiple real time high-resolution ultrasonic images with compression and noncompression maneuvers of the deep venous system in addition to color doppler imagi ng were performed from the common femoral vein through the proximal calf veins. COMPARISON: Comparison is made to a venous Doppler ultrasound 07/20/2021 FINDINGS/IMPRESSION: Currently there is normal compressibility of the deep venous system from the common femoral vein thro ugh the proximal calf veins. Evaluation of calf vessels is limited due to scabbing and pitting edema . ACT 112: Negative or not required by law. Electronically signed by: James Pisano M.D. 07/30/2022 8:05 AM
--- NOTE | 2022-07-30 08:29 | CT Scan Report ---
CT head/brain wo con CLINICAL HISTORY: Seizure Technique: Contiguous axial CT images of the head were acquired from the base of the skull to the osvaldo dick without intravenous contrast administration. Images were viewed in brain, subdural and bone [facility]. Automated dose lowering techniques and/or adjustment according to patient size were utilized for this exam. Comparison: None available at the time of this dictation. Findings: Areas of decreased attenuation are present in the periventricular and subcortical white matter bilate rally consistent with small vessel ischemic disease. Generalized cerebral atrophy with commensurate e nlargement of the ventricles, sulci, and cisterns is also present. There is no acute intracranial hem orrhage or evidence of acute territorial infarction. No shift of the midline structures, mass effect, or extra-axial abnormalities are shown. Atherosclerotic calcifications are present in the intracran ial segments of the internal carotid arteries. Sphenoid sinus soft tissue thickening is noted. The orbits appear normal. There are no acute fractur es of the calvaria or scalp swelling. Impression: No acute intracranial hemorrhage, no evidence of acute territorial infarction or other acute intracra nial disease process. ACT 112: Negative or not required by law. Electronically signed by: James Pisano M.D. 07/30/2022 8:28 AM
[2022-07-30] MEDS: INSULIN ASPART PER UNIT CHARGE SC SCH ×4 (08:49→21:08)
--- NOTE | 2022-07-30 09:18 | XRay Report ---
XR chest 1V portable CLINICAL HISTORY: Sepsis TECHNIQUE: Single frontal radiograph of the chest was obtained. Comparison: Comparison is made to chest radiograph 07/23/2021 FINDINGS: No lines and tubes are seen. Calcified aortic knob is seen. Mild atelectasis is seen in the left lowe r lobe. No evidence of pleural effusion or pneumothorax. IMPRESSION: No acute chest disease. ACT 112: Negative or not required by law. Electronically signed by: James Pisano M.D. 07/30/2022 9:16 AM
[2022-07-30] MEDS: ENOXAPARIN INJ 40 MG/0.4 ML SYR SQ SCH ×2 (09:47→20:25)
[2022-07-30] MEDS: MULTIVITAMIN TAB PO SCH (09:48)
[2022-07-30] MEDS: SERTRALINE HCL 50 MG TABLET PO SCH (09:48)
[2022-07-30] MEDS: DOCUSATE SODIUM 100 MG CAP PO SCH ×2 (09:48→21:08)
[2022-07-30] MEDS: DAPTOmycin 400 MG in SYRINGE 0 ML IV SCH (11:55)
[2022-07-30 12:11] LABS: Calcium 9.4 mg/dl (8.5-10.1); Potassium 5.2 mmol/L (3.5-5.1)
[2022-07-30 12:16] LABS: BUN Creatinine Ratio 13.4 (10-20); Creatinine Clr Calc Pharmacy 47.3 ml/min; Est GFR (African American) 42.6 ml/min; Est GFR (Non-African American) 36.8 ml/min
--- NOTE | 2022-07-30 12:29 | Neurology Consultation ---
Date of Consultation July 30, 2022 Assessment & Plan (1) Seizure-like activity: Plan NEUROLOGY CONSULTATION Assessment & Plan: Impression: pt likely one time seizure event from infections and metabolic di sorders. pt clinically stable. pt does not have epilepsy. 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 no need for AED. avoid electrolyte imbalance and treat infection. not much to add at this point from neurology. please call again if new question. Dr. Stiven Pozo MD [facility] Neurology Chief Complaint: seizure History of Present Illness: pt with b/l leg cellulitis and covid positive and COBY with hyperkalcemia. pt had one time seizure like event. pt now back to baseline and wanting to go home. no prior hx of seizures. CT head negative. pt doing well currently. chart reviewed. Admission/Initial HPI documentation: The patient is a 72-year-old male with past medical history including bilateral lower extremity cellulitis, chronic venous stasis, COPD, influenza A, hypomagnesemia, COPD, GERD, dyslipidemia, hypertension, gait abnormality, vitamin D deficiency, asthma, prediabetes and BPH with LUTS. The patient has been treated for bilateral lower extremity cellulitis with Bactrim DS, which she is was taking twice a day. He reports that he still has a couple days left from the original prescription. Patient does not have a history of previous seizures. He denies any further episodes while in the ED. Significant abnormalities: COVID-19 positive, creatinine 2.08, potassium 5.3, glucose 110. CT head with no acute findings. CT abdomen and pelvis with no acute findings. Ultrasound venous Dopplers of bilateral lower extremities was negative for DVT bilaterally Past Medical History: See chart Meds: See chart I personally reviewed all of the medications Social & Family History: See chart Review of Systems: Per initial HPI on admission. Physical Exam: GEN: NAD HEENT: Normocephalic Neuro: Mental status:A & O x 3.No dysarthria or aphasia.No neglect. Fluent speech. No apraxia Cranial Nerves:II-XII intact Motor:Normal bulk and tone,5-/5 strength upper limbs. limited lower ext movements due to cellulitis. Coordination:Intact Reflexes: down going toes alvaro Sensation: Intact x 4 extremities to touch Chart reviewed I have spent more than 50% educating patient about potential diagnosis and neurological evaluation and coordinating care with patient's treatment team. Total time spent (including chart review and coordination of care): 80 min (this includes chart review). History of Present Illness Attending Physician: Cydney Dominguez MD Allergies Allergy/AdvReac Type Severity Reaction Status Date / Time cheese Allergy Unknown SICK TO Verified 07/29/22 22:01 STOMACH Penicillins Allergy Unknown RASH Verified 07/29/22 22:01 Home Medications Medication Instructions Recorded Confirmed Type multivitamin 1 tab PO DAILY 03/07/19 07/29/22 History Wheelchair (Manual) #1 ea 07/28/21 07/29/22 Rx Wheeled Walker #1 ea 07/28/21 07/29/22 Rx furosemide 20 mg tablet 20 mg PO DAILY #90 tabs 08/18/21 07/29/22 Rx potassium chloride 10 mEq 10 meq PO DAILY #90 caps 08/18/21 07/29/22 Rx capsule,extended release compr.stocking,knee,long,large #12 ea 09/27/21 07/29/22 Rx celecoxib 100 mg capsule (Celebrex) 100 mg PO BID PRN pain #180 caps 10/06/21 07/29/22 Rx sertraline 50 mg tablet 50 mg PO DAILY #90 tabs 11/27/21 07/29/22 Rx lisinopril 20 mg tablet 20 mg PO DAILY #90 tabs 12/20/21 07/29/22 Rx docusate sodium 100 mg capsule 100 mg PO BID #60 caps 06/20/22 07/29/22 Rx (Colace) sulfamethoxazole 800 1 tab PO BID 10 days #20 tabs 07/25/22 07/29/22 Rx mg-trimethoprim 160 mg tablet (Bactrim DS) albuterol sulfate 90 mcg/actuation 1 - 2 puff inhalation Q4H PRN 07/27/22 07/29/22 Rx aerosol inhaler (Ventolin HFA) shortness of breath #8.5 grams metformin 500 mg tablet 500 mg PO BID 07/29/22 07/29/22 History simvastatin 20 mg tablet 20 mg PO QPM 07/29/22 07/29/22 History Patient History Medical History (Updated 07/30/22 @ 04:01 by Sean Shields MD) Acute hypoxemic respiratory failure Asthma Cellulitis of both lower extremities COPD (chronic obstructive pulmonary disease) Diverticulosis Dyslipidemia GERD (gastroesophageal reflux disease) HTN (hypertension) Influenza Pneumonia Pneumonia Sleep apnea Surgical History H/O inguinal hernia repair H/O oral surgery History of throat surgery for sleep apnea- Dr. Arriola S/P partial colectomy S/P tonsillectomy and adenoidectomy Family History Other Adopted Family history unknown Social History Smoking Status: Former smoker Tobacco Type: Cigarettes Cigarettes Per Day: 26 years ago; Second Hand Exposure: No; Do You Dip or Chew Tobacco: No; Hx Alcohol Use: Yes Hx Substance Use: No Preferred Language: Greenlandic Communication Ability: Effective Visual Impairment: No Limitations Hearing Ability: Normal Crossing Guard Required: No Beliefs That Will Affect Care: None marital status: Current Living Situation: Spouse and Family current occupational status: unemployed and disabled Other Information That Helps Us Care for You: No Feels Safe at Home: Yes Safety Concerns: Feels Safe At This Time Childhood Exposure to Second-Hand Smoke: Yes during the past year weight has: remained stable Dental Care, Regularly: No Physical Activity Frequency: Does not Exercise Seatbelt Use: always Sunscreen Use: No Assistive Devices: Bedside Commode and Wheelchair Results & Data ([facility]) Vital Signs (Past 12 Hours) Vital Signs Pulse Pulse Resp BP BP Pulse Ox O2 Del Method 07/30/22 11:51 100 H 16 110/59 L 91 Room Air 07/30/22 09:30 118/42 L 07/30/22 09:30 109 H 21 91 Room Air 07/30/22 09:12 113/51 L 07/30/22 09:12 120 H 20 07/30/22 09:00 108 H 17 07/30/22 08:00 98 H 19 07/30/22 07:00 111 H 15 07/30/22 06:01 97 H 19 07/30/22 05:31 102/78 07/30/22 05:31 108 H 21 07/30/22 05:00 102 H 18 07/30/22 05:00 110/52 L 07/30/22 04:30 110/44 L 07/30/22 04:30 100 H 18 07/30/22 04:00 101 H 11 L 07/30/22 04:00 110/46 L 07/30/22 03:33 99/51 L 07/30/22 03:33 14 07/30/22 03:30 20 07/30/22 03:30 110/47 L 07/30/22 03:00 112 H 23 07/30/22 03:00 113/61 07/30/22 04:53 96 H 07/30/22 03:49 103 H 99/51 L 92 Room Air 07/30/22 02:30 105/42 L 07/30/22 02:30 105 H 18 07/30/22 01:15 106 H 07/30/22 02:00 108 H 14 07/30/22 01:30 116/53 L 07/30/22 01:30 120 H 14 07/30/22 01:04 112/53 L 07/30/22 01:04 107 H 17 07/30/22 01:01 106 H 14
[2022-07-30] MEDS ORDERED: REMDESIVIR 200 MG in SODIUM CHLORIDE 0.9% 210 ML IV STA (16:20)
--- NOTE | 2022-07-30 17:01 | History & Physical Bridge Note ---
Date of Service July 30, 2022 History & Physical Bridge Note I have examined the patient, reviewed the History & Physical and in the interval since the performance of the History & Physical I have noted the following changes of clinical significance: Patient feeling low appetite and malaise but overall doing fine. He is itchy all over and has excoriations on his arms and torso and abdomen. Reports he has been itchy for the last few days since taking Bactrim. Reviewed neurology consultation-feels this is a one-time seizure due to acute illness and no need for antiepileptic drugs Repeated BMP-creatinine is trending downward and potassium is also trending back towards normal Cellulitis on the legs appears to be improved as per patient-ICD chronic venous stasis changes with crusted scabs on bilateral legs with chronic appearing induration and erythema of the left posterior leg but no spreading erythema He has excoriations as noted on torso and shoulders and abdomen -Add on Decadron and Remdesivir for pulse ox 91%. Creatinine clearance is acceptable for this The Decadron will also help with his itching Continue cefepime and daptomycin for cellulitis but this really appears like it is almost completely resolved PT/OT consults placed although patient reports he only gets assistance from chair to bedside commode with his daughter or granddaughter at home and does not walk for the last 8 months due to lower extremity weakness and arthritis. Wound care consult placed We will give 1 more liter of IV fluids for acute kidney injury Patient feels he will be ready to go home tomorrow
--- NOTE | 2022-07-30 17:08 | Electrocardiogram Report ---
Test Reason : Blood Pressure : / mmHG Vent. Rate : 105 BPM Atrial Rate : 105 BPM P-R Int : 152 ms QRS Dur : 120 ms QT Int : 364 ms P-R-T Axes : 064 -06 042 degrees QTc Int : 481 ms Poor data quality, interpretation may be adversely affected Sinus tachycardia Right bundle branch block Possible Inferior infarct (cited on or before 29-JUL-2022) Abnormal ECG When compared with ECG of 29-JUL-2022 20:45, (unconfirmed) No significant change was found Confirmed by Tariq Mejía ([id number]) on 07/30/2022 5:07:51 PM Referred By: REFERRED SELF Confirmed By:Major Mejía
[2022-07-30] MEDS ORDERED: LACTATED RINGER'S 1,000 ML IV SCH (17:15)
--- NOTE | 2022-07-30 17:16 | Electrocardiogram Report ---
Test Reason : Blood Pressure : / mmHG Vent. Rate : 117 BPM Atrial Rate : 117 BPM P-R Int : 156 ms QRS Dur : 114 ms QT Int : 354 ms P-R-T Axes : 068 015 049 degrees QTc Int : 493 ms Sinus tachycardia Low voltage QRS Incomplete right bundle branch block Possible Inferior infarct , age undetermined Abnormal ECG When compared with ECG of 20-JUL-2021 09:44, Vent. rate has increased BY 40 BPM Borderline criteria for Anterolateral infarct are now Present Confirmed by Tariq Mejía ([id number]) on 07/30/2022 5:16:15 PM Referred By: REFERRED SELF Confirmed By:Major Mejía
[2022-07-30] MEDS: dexAMETHasone 6 MG in SYRINGE 0 ML IV SCH (18:45)
[2022-07-30] MEDS ORDERED: diphenhydrAMINE 50 MG/ML VIAL IV ONE (19:33)
[2022-07-31] MEDS: CEFEPIME 2,000 MG in SYRINGE 0 ML IV SCH ×2 (06:03→18:11)
[2022-07-31] MEDS: DOCUSATE SODIUM 100 MG CAP PO SCH ×2 (08:01→20:47)
[2022-07-31] MEDS: SERTRALINE HCL 50 MG TABLET PO SCH (08:03)
[2022-07-31] MEDS: MULTIVITAMIN TAB PO SCH (08:03)
[2022-07-31] MEDS: dexAMETHasone 6 MG in SYRINGE 0 ML IV SCH (08:04)
[2022-07-31] MEDS: ENOXAPARIN INJ 40 MG/0.4 ML SYR SQ SCH ×2 (08:04→20:34)
[2022-07-31 08:13] LABS: Basophils # (auto) 0.02 K/uL (0-0.2); Basophils % (auto) 0.3 %; Eosinophils # (auto) 0.17 K/uL (0-0.50); Eosinophils % (auto) 2.8 %; Hematocrit (blood only) 39.3 % (42.0-52.0); Hemoglobin 12.8 g/dl (14.0-18.0); Immature Granulocytes # (auto) 0.04 K/uL (0.01-0.20); Immature Granulocytes % (auto) 0.7 %; Lymphocytes # (auto) 0.99 K/uL (1.2-3.4); Lymphocytes % (auto) 16.1 %; Mean Corpuscular Hgb Conc 32.6 g/dL (32.0-36.0); Mean Corpuscular Volume 88.9 fL (80.0-100.0); Mean Platelet Volume 10.1 fL (9.4-12.4); Monocytes # (auto) 0.44 K/uL (0.11-0.59); Monocytes % (auto) 7.2 %; Neutrophils # (auto) 4.49 K/uL (1.40-6.50); Neutrophils % (auto) 72.9 %; Platelet Count 280 K/uL (130-400); RDW Coefficient of Variation 13.4 % (11.5-14.5); RDW Standard Deviation 43.6 fL (36.4-46.3); Red Blood Count 4.42 M/uL (4.70-6.10); White Blood Count 6.15 K/ul (4.8-10.8)
[2022-07-31 08:31] LABS: Albumin Level 4.1 gm/dl (3.4-5.0); BUN Creatinine Ratio 16.2 (10-20); Bilirubin Direct 0.1 mg/dl (0-0.2); Bilirubin,Total 0.5 mg/dl (0.2-1.0); Calcium 9.9 mg/dl (8.5-10.1); Creatinine Clr Calc Pharmacy 62.3 ml/min; Est GFR (African American) 59.4 ml/min; Est GFR (Non-African American) 51.3 ml/min; Phosphorus 3.5 mg/dl (2.5-4.9); Potassium 5.8 mmol/L (3.5-5.1); Total Protein 7.3 gm/dl (6.0-8.3)
[2022-07-31] MEDS: INSULIN ASPART PER UNIT CHARGE SC SCH ×4 (08:56→20:21)
[2022-07-31] MEDS ORDERED: PATIROMER CALCIUM SORBITEX 8.4 GM PACK PO ONE (10:00)
[2022-07-31] MEDS: hydrOXYzine HCl 25 MG TAB PO PRN ×2 (10:06→20:31)
[2022-07-31] MEDS: FUROSEMIDE 20 MG TAB PO SCH (10:06)
[2022-07-31] MEDS: DAPTOmycin 400 MG in SYRINGE 0 ML IV SCH (13:25)
--- NOTE | 2022-07-31 15:37 | Hospitalist Progress Note ---
Date of Service July 31, 2022 Assessment & Plan (1) Seizure-like activity: Plan: Witnessed by his of about 10 minutes duration with a brief episode of confusion afterwards Patient does remember his right hand and then arm shaking, and as he went to reach with his left arm to touch his right arm that is the last he remembers He did not have loss of bowel or bladder control. He has not had previous episodes of this type activity. Reviewed neurology consultation-feels this is a one-time seizure due to acute illness and no need for antiepileptic drugs no EEG indicated as per Neuro no further seizure activity noted here (2) Acute hyperkalemia: Plan: with hyperkalemia since admission that did improve but now worsening again up to 5.8 Likely secondary to COBY and Bactrim use -improved later in day to 5.4 with po lasix and Veltassa -holding home KCl supplements -COBY now resolved with holding home lasix-restart lasix along with 1 L NS to encourage kaliuresis without dehydration -stopped bactrim -give one dose Veltassa today -change to low K+ diet -holding home lisinopril -follow BMP again in evening and then in the AM (3) COVID-19: Plan: With mild symptoms of cough Had hypoxia to 91% but not requiring supplemental O2 Started dexamethasone and remdesivir No improving Can finish out 10-day course of Decadron after discharge (4) COBY (acute kidney injury): Plan: related to Bactrim use and in setting of lasix use, COVID infection and poor po intake, and lisinopril use [employer] was 2.0 on admission and now down to 1.3 after IVFs and holding home lisinopril and lasix No urinary retention - restarting lasix today as above for hyperkalemia -give another 1L NS with lasix as above for hyperkalemia -follow BMP in AM -stopped Bactrim (5) Pruritic dermatitis: Plan: With excoriations over trunk, proximal extremities, no definite rash noted Started after taking Bactrim Stopped Bactrim and added to allergy list Start hydroxyzine as needed itching Decadron should help as well (6) Cellulitis of both lower extremities: Plan: has bilat chronic venous stasis changes, very thick, dry skin with crusted over lesions and some weeping fluid No fevers or spreading erythema, warmth since admission Was on Bactrim x 2-3 days prior to admission which likely helped resolved the previous cellulitis -has been on cefepime and Dapto since admission--> will convert to po clindamycin in the AM given PCN allergy and now possible reaction to Bactrim (7) Venous stasis: Plan: would benefit from Wound Care clinic and routine follow up, compression wraps, but is not able to leave the home due to ambulatory dysfunction (8) COPD (chronic obstructive pulmonary disease): Plan: with mild hypoxia with COVID-now improved on decadron albuterol prn (9) HTN (hypertension): Plan: BPs controlled holding lisinopril restart lasix (10) Gait abnormality: Plan: with 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, chronic ambulatory dysfunction, unable to leave home or walk in many months-years (11) Benign localized hyperplasia of prostate with urinary obstruction: Plan: no acute issues, not on meds (12) Prediabetes: Plan: hgbA1c 5.9% here with some hyperglycemia secondary to corticosteroids Holding home metformin Giving NovoLog supplemental insulin (13) Depression: Plan: No acute issues Continue sertraline Plan DVT prophylaxis-Lovenox Disposition-continued stay for hyperkalemia, hopeful for discharge home tomorrow with home health if hyperkalemia resolved Admission and Anticipated Discharge Date Admission Date: July 30, 2022 Subjective Feeling fine today. Only has a mild cough, no SOB. Is eating and drinking. Itching is better today with hydroxyzine. Received benadryl overnight. No longer on tele monitor Review of Systems Review of Systems: All systems reviewed & are unremarkable except as noted in HPI & below Physical Exam Constitutional: WD/WN, vitals as above Respiratory: normal respiratory effort, lungs clear to auscultation Cardiovascular: Rate/Rhythm: regular rate and regular rhythm Heart Sounds: no murmur Extremities: + edema (trace edema bilat LEs) Gastrointestinal (Abdomen): normal bowel sounds, soft, nontender, no hepatosplenomegaly Skin: + lesion (multiple crusted over lesions legs bilat) and + erythema (mild anterior legs and left post calf) Results & Data Results & Data ([facility]) Vital Signs (Past 12 Hours) Vital Signs Temp Pulse Resp BP Pulse Ox O2 Del Method 07/31/22 12:16 36.9 C 75 18 150/70 H 96 Room Air 02/21/23 11:11 Room Air 07/31/22 07:49 36.6 C 85 19 124/66 97 Room Air 07/31/22 04:49 36.6 C 90 19 145/69 H 94 Room Air Laboratory Results CBC and BMP reviewed in AM and repeat BMP reviewed in PM PG Care Time/CCT Total # of Minutes Spent Total Time Spent with Patient: Total time spent is greater than 50% in coordination of care (as documented) at patient's floor/unit and/or counseling patient: Coding Level of Care Code 09841 SUB INP/OBS CARE 3/50MIN Diagnoses Seizure-like activity R56.9 Acute hyperkalemia E87.5 COVID-19 U07.1 COBY (acute kidney injury) N17.9 Pruritic dermatitis L29.9 Cellulitis of both lower extremities L03.115; L03.116 Venous stasis I87.8 COPD (chronic obstructive pulmonary disease) J44.9 HTN (hypertension) I10 Gait abnormality R26.9 Benign localized hyperplasia of prostate with urinary obstruction N40.1; N13.8 Prediabetes R73.03 Depression F32.A
[2022-07-31 15:54] LABS: BUN Creatinine Ratio 16.2 (10-20); Calcium 10.1 mg/dl (8.5-10.1); Creatinine Clr Calc Pharmacy 57.3 ml/min; Est GFR (African American) 53.6 ml/min; Est GFR (Non-African American) 46.3 ml/min; Potassium 5.5 mmol/L (3.5-5.1)
[2022-07-31] MEDS ORDERED: SODIUM CHLORIDE 0.9% 1000ML 1,000 ML IV SCH (16:30)
[2022-07-31] MEDS ORDERED: REMDESIVIR 100 MG in SODIUM CHLORIDE 0.9% 230 ML IV SCH (20:00)
[2022-08-01 07:31] LABS: Basophils # (auto) 0.03 K/uL (0-0.2); Basophils % (auto) 0.3 %; Eosinophils # (auto) 0.01 K/uL (0-0.50); Eosinophils % (auto) 0.1 %; Hematocrit (blood only) 40.9 % (42.0-52.0); Hemoglobin 13.3 g/dl (14.0-18.0); Immature Granulocytes # (auto) 0.05 K/uL (0.01-0.20); Immature Granulocytes % (auto) 0.5 %; Lymphocytes # (auto) 2.04 K/uL (1.2-3.4); Lymphocytes % (auto) 22.1 %; Mean Corpuscular Hemoglobin 29.3 pg (25.0-34.0); Mean Corpuscular Hgb Conc 32.5 g/dL (32.0-36.0); Mean Corpuscular Volume 90.1 fL (80.0-100.0); Mean Platelet Volume 9.8 fL (9.4-12.4); Monocytes # (auto) 1.18 K/uL (0.11-0.59); Monocytes % (auto) 12.8 %; Neutrophils % (auto) 64.2 %; Platelet Count 266 K/uL (130-400); RDW Coefficient of Variation 13.4 % (11.5-14.5); RDW Standard Deviation 44.2 fL (36.4-46.3); Red Blood Count 4.54 M/uL (4.70-6.10); White Blood Count 9.21 K/ul (4.8-10.8)
[2022-08-01 07:48] LABS: BUN Creatinine Ratio 20.1 (10-20); Calcium 9.8 mg/dl (8.5-10.1); Est GFR (African American) 57.9 ml/min; Est GFR (Non-African American) 49.9 ml/min; Potassium 4.8 mmol/L (3.5-5.1)
[2022-08-01] MEDS ORDERED: CLINDAMYCIN HCL 150 MG CAP PO SCH (08:00)
[2022-08-01] MEDS: INSULIN ASPART PER UNIT CHARGE SC SCH (08:52)
[2022-08-01] MEDS: ENOXAPARIN INJ 40 MG/0.4 ML SYR SQ SCH (08:58)
[2022-08-01] MEDS: dexAMETHasone 6 MG in SYRINGE 0 ML IV SCH (08:58)
[2022-08-01] MEDS: DOCUSATE SODIUM 100 MG CAP PO SCH (08:58)
[2022-08-01] MEDS: FUROSEMIDE 20 MG TAB PO SCH (08:59)
[2022-08-01] MEDS: SERTRALINE HCL 50 MG TABLET PO SCH (09:00)
[2022-08-01] MEDS: MULTIVITAMIN TAB PO SCH (09:00)
--- NOTE | 2022-08-01 11:03 | Discharge Summary ---
Date of Service August 01, 2022 Admission HPI Per Admitting Provider The patient is a 72-year-old male with past medical history including bilateral lower extremity cellulitis, chronic venous stasis, COPD, influenza A, hypomagnesemia, COPD, GERD, dyslipidemia, hypertension, gait abnormality, vitamin D deficiency, asthma, prediabetes and BPH with LUTS. The patient has been treated for bilateral lower extremity cellulitis with Bactrim DS, which she is was taking twice a day. He reports that he still has a couple days left from the original prescription. Patient does not have a history of previous seizures. He denies any further episodes while in the ED. Significant abnormalities: COVID-19 positive, creatinine 2.08, potassium 5.3, glucose 110. CT head with no acute findings. CT abdomen and pelvis with no acute findings. Ultrasound venous Dopplers of bilateral lower extremities was negative for DVT bilaterally Principal Diagnosis Bilateral lower extremity cellulitis, COVID-19, seizure-like activity, syncope Discharge Exam Constitutional WD/WN, vitals as above Respiratory normal respiratory effort, lungs clear to auscultation Cardiovascular Rate/Rhythm: regular rate and regular rhythm Heart Sounds: no murmur Extremities: + edema (trace edema bilat LEs) Gastrointestinal (Abdomen) normal bowel sounds, soft, nontender, no hepatosplenomegaly Skin + lesion (multiple crusted over lesions legs bilat) and + erythema (mild anterior legs and left post calf) Discharge Data Allergies Allergy/AdvReac Type Severity Reaction Status Date / Time sulfamethoxazole Allergy Mild itching Verified 07/31/22 21:49 [From Bactrim] trimethoprim [From Bactrim] Allergy Mild itching Verified 07/31/22 21:49 cheese Allergy Unknown SICK TO Verified 07/29/22 22:01 STOMACH Penicillins Allergy Unknown RASH Verified 07/29/22 22:01 Consultations 07/29/22 23:26 ED Decision to Admit Stat 07/30/22 10:10 Consult Neurology Routine Ordered Studies 07/29/22 21:26 CT head/brain wo con Stat 07/29/22 21:52 CT abd pelvis wo con Stat 07/30/22 21:52 US venous doppler [facility] Urgent Hospital Course (1) Seizure-like activity: Witnessed by his of about 10 minutes duration with a brief episode of confusion afterwards Patient does remember his right hand and then arm shaking, and as he went to reach with his left arm to touch his right arm that is the last he remembers He did not have loss of bowel or bladder control. He has not had previous episodes of this type activity. Reviewed neurology consultation-feels this is a one-time seizure due to acute illness and no need for antiepileptic drugs no EEG indicated as per Neuro no further seizure activity noted here (2) Acute hyperkalemia: with hyperkalemia since admission that did improve Likely secondary to COBY and Bactrim use -Treated with po lasix and Veltassa -holding home KCl supplements until further outpatient BMP check in a few days -COBY now resolved after being given IVFs -stopped bactrim -used low K+ diet -holding home lisinopril but okay to restart on discharge (3) COVID-19: With mild symptoms of cough Had hypoxia to 91% but not requiring supplemental O2 Started dexamethasone and remdesivir Now improving Can finish out 10-day course of Decadron after discharge (4) COYB (acute kidney injury): related to Bactrim use and in setting of lasix use, COVID infection and poor po intake, and lisinopril use [employer] was 2.0 on admission and now down to 1.3 after IVFs and holding home lisinopril and lasix No urinary retention - restarted lasix for hyperkalemia and creatinine remained stable -stopped Bactrim (5) Pruritic dermatitis: With excoriations over trunk, proximal extremities, no definite rash noted Started after taking Bactrim Stopped Bactrim and added to allergy list Treated with hydroxyzine as needed for itching Decadron helped as well (6) Cellulitis of both lower extremities: has bilat chronic venous stasis changes, very thick, dry skin with crusted over lesions and some weeping fluid No fevers or spreading erythema, warmth since admission Was on Bactrim x 2-3 days prior to admission which likely helped resolved the previous cellulitis -has been on cefepime and Dapto since admission--> convert to po clindamycin given PCN allergy and now possible reaction to Bactrim (7) Venous stasis: would benefit from Wound Care clinic and routine follow up, compression wraps, but is not able to leave the home due to ambulatory dysfunction (8) COPD (chronic obstructive pulmonary disease): with mild hypoxia with COVID-now improved on decadron albuterol prn (9) HTN (hypertension): BPs controlled Held lisinopril as above but restarted on discharge Continue lasix (10) Gait abnormality: with 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 Recommend wound care clinic. He is agreeable to going out for appointments-asked case management to provide information to him and his family regarding [facility] for transportation Home Health Attestation I certify that this patient is under my care and that I, or a physicians melter assistant working with me, had a face to-face encounter that meets the home health [id number] encounter requirements with this patient. The encounter with the patient was in whole, or in part, for the following medical condition, which is the primary reason for home health care (list medical condition): Cellulitis. I certify that, based on my findings, the following services are medically necessary home health services: My clinical findings support the need for the above services because: OT Assess ADL Status and Restore Function w ADLs PT Assessment for Endurance / Balance / Strength PT Eval for Safety and Mobility PT Eval for Safety, Gait Training, Assistive Devices PT Gait and Balance Training, Strengthening and Safety Skilled Nsg Assessment Further, I certify that my clinical findings support that this patient is homebound (i.e. absences from home require considerable and taxing effort and are for medical reasons or jewish services or infrequently or of short duration when for other reasons) because: Supportive Aid - Wheelchair Certification for Home Health Services: Based on the above findings, I certify that this patient is confined to the home and needs intermittent nursing home care, physical therapy and/or speech therapy or continues to need occupational therapy. The patient is under my care, and I have initiated the establishment of the plan of care. This patient will be followed by a physician who will periodically review the plan of care. Total Time Total Time Spent Total Time Spent (In Minutes): 35 min Discharge Plan Discharge Items Patient Disposition: Home - Home Health Services Reason For Visit: SEIZURE-LIKE ACTIVITY, CELLULITIS, COVID-19 Discharge Diagnosis: Seizure-like activity, COVID-19, Hyperkalemia, Acute kidney injury, Leg cellulitis Condition on Discharge: Fair Activity: As commented below Lifting: Gradually increase as tolerated Bathing: No limitations Exercise/Sports: Gradually increase as tolerated Non-emergency contact: Primary Care Provider Call non-emergency contact if: you have any medication questions, your symptoms worsen and you have a fever Follow-up/Referrals: Harlan Osorio MD [Primary Care Provider] - 08/03/22 8:30 am (Scheduled on 08/03/22 at 8:30am with Joanne Oconnor) Diet: Carb Consistent or DM2 and Heart Healthy Addtl Attending Provider Instructions: Please STOP taking your potassium pill and have the home nurse draw blood to check your potassium levels in 1 week. For your COVID, you should finish out a course of dexamethasone once daily x 1 more week. You can use the albuterol inhaler as needed for cough or shortness of breath. You should finish out 2 more days of the antibiotic for your leg cellulitis. Please have the visiting nurse and your family care for your legs as per the wound care instructions. You can take hydroxyzine as needed for itching. Pending Studies at Discharge: No Stand-Alone Forms: [facility] [place] Sm[facility] Cess[facility] Medications and DC Order Prescriptions: New clindamycin HCl 150 mg Capsule 300 mg PO Q8H Qty: 5 0RF hydroxyzine HCl 25 mg Tablet 25 mg PO Q8H PRN (Reason: itching) Qty: 30 0RF dexamethasone 4 mg tablet 4 mg PO DAILY Qty: 7 0RF Continued furosemide 20 mg tablet 20 mg PO DAILY Qty: 90 3RF celecoxib [Celebrex] 100 mg capsule 100 mg PO BID PRN (Reason: pain) Qty: 180 3RF sertraline 50 mg tablet 50 mg PO DAILY Qty: 90 3RF (DME) compr.stocking,knee,long,large Misc See Rx Instructions .Route Qty: 12 0RF Rx Instructions: to be worn daily. 15-20mmHg. Knee high (DME) Wheelchair (Manual) Device See Rx Instructions .Route Qty: 1 0RF Rx Instructions: Extra wide wheelchair with cushion and footplates (DME) Wheeled Walker Misc See Rx Instructions .Route Qty: 1 0RF Rx Instructions: standard 4 wheeled walker multivitamin tablet 1 tab PO DAILY metformin 500 mg tablet 500 mg PO BID Rx Instructions: TAKE 1 TABLET TWICE DAILY simvastatin 20 mg tablet 20 mg PO QPM albuterol sulfate [Ventolin HFA] 90 mcg/actuation HFA aerosol inhaler 1 - 2 puff INH Q4H PRN (Reason: shortness of breath or cough) Qty: 8.5 1RF Discontinued potassium chloride 10 mEq capsule, extended release 10 meq PO DAILY Qty: 90 3RF Rx Instructions: to take with furosemide lisinopril 20 mg tablet 20 mg PO DAILY Qty: 90 3RF docusate sodium [Colace] 100 mg capsule 100 mg PO BID Qty: 60 3RF sulfamethoxazole-trimethoprim [Bactrim DS] 800-160 mg tablet 1 tab PO BID 10 Days Qty: 20 0RF No Action (DME) walk[place] [facility] Rx Instructions .Route Qty: 1 0RF Rx Instructions: As directed Discharge Orders: Discharge Order (Routine); Ordered 08/01/22 Ordered By: Cydney Dominguez Admission Data Admit Date/Time: 07/30/22 01:26 Attending Provider: Cydney Dominguez Admit Provider: Sean Shields Primary Care Provider: Harlan Osorio Other Providers: Stiven Pozo ; [facility] Other Interventions: Discharge Summary Assessment (RN) Last Done: 08/01/22 12:55 Coding Level of Care Code 84466 INP/OBS DISCH >30 MIN Diagnoses Seizure-like activity R56.9 Acute hyperkalemia E87.5 COVID-19 U07.1 COBY (acute kidney injury) N17.9 Pruritic dermatitis L29.9 Cellulitis of both lower extremities L03.115; L03.116 Venous stasis I87.8 COPD (chronic obstructive pulmonary disease) J44.9 HTN (hypertension) I10 Gait abnormality R26.9 Benign localized hyperplasia of prostate with urinary obstruction N40.1; N13.8 Prediabetes R73.03 Depression F32.A
== END 2022-08-01 14:00 | disposition home health service (06) | DRG 640 ==
LOC: ED 20:42 → EDINP 07-30 01:26 → SUATTDRO 07-30 01:26 → 2S 07-30 04:00

== ENCOUNTER 2023-05-23 19:07 | Observation (INO) ==
[2023-05-23] MEDS ORDERED: CEFEPIME 2,000 MG/20 ML VIAL IV STA (19:56)
[2023-05-23] MEDS ORDERED: SODIUM CHLORIDE 0.9% 500 ML IV ONE ×3 (19:56→21:33)
[2023-05-23 20:19] LABS: Appearance Urine Turbid (Clear); Bilirubin Urine 2+ (Negative); Blood Urine 3+ (Negative); Color Urine Red; Glucose Urine UA Negative (Negative); Ketones Urine 1+ (Negative); Leukocyte Esterase Urine 3+ (Negative); Nitrite Urine Positive (Negative); Protein Urine 3+ (Negative); Specific Gravity Urine 1.025 (1.000-1.030); Urobilinogen Urine Negative (Negative); pH Urine 5.5 (4.5-7.5)
[2023-05-23 20:22] LABS: Bacteria Urine 3+ (Negative); Epithelial Cell Urine 0-5 /lpf (0-5); RBC Urine >30 /hpf (0-4); WBC Urine >30 /hpf (0-5)
--- NOTE | 2023-05-23 20:48 | Emergency Department Note ---
Impression & Plan Tachycardia, Leukocytosis, Acute UTI, Dysuria ED Provider Note NAME: VAZQUEZ PACE AGE: 73 SEX: M : 1950 ARRIVES VIA: Walk-In INFORMANT: [Patient][family] ED PROVIDER(S): [Sree Patricia MD] CHIEF COMPLAINT: Hematuria HISTORY OF PRESENT ILLNESS: The patient is a 73-year-old male presents to the ER with urinary burning and some blood in the urine noted today. He does not have back pain, nausea or vomiting, no fever. He did see his doctor's office today, he was referred to the ER with concerns for urinary infection and potentially bacteremia as he had a high heart rate. The patient states that his legs are always red and always warm and swollen, he has been dealing with this for a long time. There has been no cough, no shortness of breath. The patient cannot recall ever having a UTI but his family believes he has had a previous urinary infection. No history of kidney stone. PMHx/PSHx/Social Hx: See Below PHYSICAL EXAM: GENERAL: Patient is in no acute distress. HEENT: No acute trauma, normocephalic atraumatic, mucous membranes moist, no nasal congestion. NECK: No stridor, no adenopathy, no meningismus, trachea is midline. LUNGS: Clear to auscultation bilaterally, no wheeze, no rhonchi, breath sounds equal. HEART: Mildly tachycardic, regular rhythm, no obvious murmur. ABDOMEN: Soft, nontender, no peritonitis. EXTREMITIES: No cyanosis, he has bilateral pedal edema with some scaling of the skin of the lower extremities and bilateral lower erythema. NEUROLOGIC: Oriented x 3, no acute motor or sensory deficits, no focal weakness. SKIN: No jaundice, no diaphoresis. DIFFERENTIAL DIAGNOSIS: Bacteremia or sepsis, urinary retention, prostatitis, UTI, renal failure, electrolyte imbalance, dehydration, hydronephrosis, among others. EMERGENCY DEPARTMENT PROCEDURES: MEDICAL DECISION MAKING: There is a moderate leukocytosis at 18,000, this certainly could be consistent with infection. There was a normal hemoglobin and platelet count. No renal failure or significant electrolyte abnormality. Lactic acid level was not not elevated making severe sepsis less likely. No concerning liver enzyme elevation. Urinalysis does show findings of infection. Abdominal and pelvis CT shows a thickened bladder consistent with cystitis, no ureteral obstruction, no acute surgical process by CT imaging. On exam, patient was not toxic or febrile. He was not tachycardic. His legs were swollen, scaling and erythematous which he states is baseline. Patient received IV saline, 1.5 L. He was given IV cefepime. Patient is tachycardic, he has a higher white count and a UTI, I do think he requires a hospital stay and further care. He requires monitoring, hydration and IV antibiotic therapy. I spoke with the patient and case management, I spoke with the family, the on- call hospitalist was consulted. Prior/Outside records/notes reviewed: ECG per my interpretation: Indication was tachycardia. The ECG shows a sinus tachycardia with a rate of 118. There is an incomplete right bundle branch block. There is no ST elevation, no PVCs. QTc was 482. Continuous Cardiac Monitoring per my interpretation: An order was placed for continuous cardiac monitoring. The monitor shows a rate of 117 with sinus tachycardia. Imaging/x-ray results per my interpretation: Chronic Medical/Social conditions affecting care: Advanced age, chronic pedal edema. Care/Management discussed with: Case management and the on-call hospitalist. Level of care consideration(s): After review of the information above and other included data: --I believe the patient requires escalation of care to admission Critical Care Note: I have personally spent 48 minutes of critical care time in the direct management of this patient. This includes bedside care, interpretation of diagnostic studies, and testing, discussion with consultants, patient, and family members, and other required patient management activities. This 48 minutes is in excess of all separately billable procedures. DISPOSITION: Admission Past Med/Surg History Medical History Impaired gait and mobility Immobility Depression Cellulitis of both lower extremities Seizure-like activity Bacteremia Acute hypoxemic respiratory failure Pneumonia Pneumonia Influenza COPD (chronic obstructive pulmonary disease) Asthma Diverticulosis HTN (hypertension) Sleep apnea Dyslipidemia GERD (gastroesophageal reflux disease) Surgical History S/P tonsillectomy and adenoidectomy History of throat surgery for sleep apnea- Dr. Arriola S/P partial colectomy H/O oral surgery H/O inguinal hernia repair Family History Other Adopted Family history unknown Denies family history of Ovarian cancer Prostate cancer Myocardial infarction Breast cancer Colorectal cancer Social History Smoking Status: Never smoker Tobacco Type: Cigarettes Age Started Using Tobacco: 15; Age Quit Using Tobacco: 47; packs per day: 2; Second Hand Exposure: No; Do You Dip or Chew Tobacco: No; Hx Alcohol Use: No Hx Substance Use: No Preferred Language: [place] Irish Communication Ability: Effective Visual Impairment: No Limitations Hearing Ability: Normal Radio Aerial Installer Required: Yes Beliefs That Will Affect Care: None marital status: Current Living Situation: Spouse and Family current occupational status: retired 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 Feels Safe at Home: Yes Childhood Exposure to Second-Hand Smoke: Yes Diet: regular during the past year weight has: remained stable Dental Care, Regularly: No Physical Activity Frequency: Does not Exercise Seatbelt Use: always Sunscreen Use: No Assistive Devices: Wheelchair Allergies Allergies Allergy/AdvReac Type Severity Reaction Status Date / Time sulfamethoxazole Allergy Mild itching Verified 05/23/23 17:46 [From Bactrim] trimethoprim [From Bactrim] Allergy Mild itching Verified 05/23/23 17:46 cheese Allergy Unknown SICK TO Verified 05/23/23 17:46 STOMACH Penicillins Allergy Unknown RASH Verified 05/23/23 17:46 Home Meds Home Medications Medication Instructions Recorded Confirmed hydroxyzine HCl 25 mg tablet 25 mg PO AMHS 03/02/23 05/23/23 diphenhydramine HCl 25 mg tablet 25 mg PO HS 05/23/23 05/23/23 (Benadryl Allergy) furosemide 20 mg tablet 20 mg PO QAM 05/23/23 05/23/23 magnesium oxide 400 mg PO QAM 05/23/23 05/23/23 Previous Rx's Medication Instructions Recorded metformin 500 mg tablet 500 mg PO BID #180 tabs 04/22/23 simvastatin 20 mg tablet 20 mg PO QPM #90 tabs 04/22/23 Results & Data (ED) Vital Signs Vital Signs - 24 hr 05/23/23 19:21 05/23/23 19:47 05/23/23 19:48 Temperature 36.4 C L Temperature Source Oral Pulse Rate 129 H 120 H Pulse Rate [Apical] 119 H Respiratory Rate 18 20 Respiratory Effort / Characteristics Non-Labored Spontaneous Respiratory Depth Normal Normal Respiratory Pattern Regular Blood Pressure 141/66 H Blood Pressure [Right Arm] 179/102 H Blood Pressure Mean 91 Blood Pressure Mean [Right Arm] 127 Blood Pressure Position Sitting Blood Pressure Position [Right Arm] Semi-fowlers Pulse Oximetry 92 94 Oxygen Delivery Method Room Air Room Air Sepsis Recent Fever Within 48 Hours No Sepsis New/Unexplained Change in Mental Status N/A Sepsis Action Taken by Nursing No Action Required 05/23/23 21:56 Temperature Temperature Source Pulse Rate Pulse Rate [Apical] 115 H Respiratory Rate 18 Respiratory Effort / Characteristics Respiratory Depth Normal Respiratory Pattern Blood Pressure Blood Pressure [Right Arm] 98/78 L Blood Pressure Mean Blood Pressure Mean [Right Arm] 84 Blood Pressure Position Blood Pressure Position [Right Arm] Semi-fowlers Pulse Oximetry 93 Oxygen Delivery Method Room Air Sepsis Recent Fever Within 48 Hours Sepsis New/Unexplained Change in Mental Status Sepsis Action Taken by Long-Term Medications Current Medication List: was personally reviewed by me Laboratory Data Attestation: I reviewed the patient's lab results. 05/23/23 20:26 05/23/23 20:26 Lab Results 05/23/23 05/23/23 05/23/23 Range/Units 19:58 20:25 20:26 WBC 18.70 H (4.8-10.8) K/ul RBC 5.06 (4.70-6.10) M/uL Hgb 14.6 (14.0-18.0) g/dl Hct 43.9 (42.0-52.0) % MCV 86.8 (80.0-100.0) fL MCH 28.9 (25.0-34.0) pg MCHC 33.3 (32.0-36.0) g/dL RDW Std Deviation 45.0 (36.4-46.3) fL RDW Coeff of Jocelyn 14.1 (11.5-14.5) % Plt Count 251 (130-400) K/uL MPV 9.2 L (9.4-12.4) fL Immature Gran % (Auto) 0.3 % Neut % (Auto) 83.4 % Lymph % (Auto) 7.4 % [place] % (Auto) 8.4 % Eos % (Auto) 0.2 % Baso % (Auto) 0.3 % Neut # (Auto) 15.60 H (1.40-6.50) K/uL Lymph # (Auto) 1.38 (1.20-3.40) K/uL [place] # (Auto) 1.58 H (0.11-0.59) K/uL Eos # (Auto) 0.03 (0.00-0.50) K/uL Baso # (Auto) 0.05 (0.00-0.20) K/uL Immature Gran # (Auto) 0.06 (0.01-0.20) K/uL Sodium 136 (136-145) mmol/L Potassium 3.9 (3.5-5.1) mmol/L Chloride 101 (98-107) mmol/L Carbon Dioxide 25 (21-32) mmol/L Anion Gap 10 (3-11) BUN 10 (6-23) mg/dl Creatinine 1.09 (0.6-1.4) mg/dl Est Cr Clr Drug Dosing 82.9 ml/min Est GFR ( Amer) 77.1 ml/min Est GFR (Non-Af Amer) 66.5 ml/min BUN/Creatinine Ratio 9.2 L (10-20) Glucose 142 H (70-99(Fasting)) mg/dl Lactate 1.7 (0.4-2.0) mmol/L Calcium 9.2 (8.6-10.3) mg/dl Total Bilirubin 1.2 H (0.2-1.0) mg/dl AST 13 (13-39) U/L ALT 9 (7-52) U/L Alkaline Phosphatase 80 (34-104) U/L Total Protein 7.4 (6.0-8.3) gm/dl Albumin 3.9 (3.4-5.0) gm/dl Globulin 3.5 (2.5-4.0) gm/dl Albumin/Globulin Ratio 1.1 (0.9-2) Urine Color Red Urine Appearance Turbid A (Clear) Urine pH 5.5 (4.5-7.5) Ur Specific [place] 1.025 (1.000-1.030) Urine Protein 3+ H (Negative) Urine Glucose (UA) Negative (Negative) Urine Ketones 1+ H (Negative) Urine Blood 3+ H (Negative) Urine Nitrite Positive A (Negative) Urine Bilirubin 2+ H (Negative) Urine Urobilinogen Negative (Negative) Ur Leukocyte Esterase 3+ H (Negative) Urine RBC >30 H (0-4) /hpf Urine WBC >30 H (0-5) /hpf Ur Epithelial Cells 0-5 (0-5) /lpf Urine Bacteria 3+ H (Negative) Administered Medications Sodium Chloride (Nss) 500 mls @ 999 mls/hr IV .Q31M ONE Stop: 05/23/23 22:03 Last Admin: 05/23/23 21:38 Dose: 999 mls/hr Documented By: THELMA Discontinued Medications Sodium Chloride (Nss) 500 mls @ 999 mls/hr IV .Q31M ONE Stop: 05/23/23 20:26 Last Infusion: 05/23/23 21:42 Dose: Infused Documented By: Admin: 05/23/23 20:48 Dose: 999 mls/hr Documented By: THELMA Cefepime HCl (Maxipime) 2,000 mg in 20 mls @ 5 mls/min IV NOW STA; Protocol Stop: 05/23/23 19:59 Last Admin: 05/23/23 21:40 Dose: 5 mls/min Documented By: THELMA Sodium Chloride (Nss) 500 mls @ 999 mls/hr IV .Q31M ONE Stop: 05/23/23 21:25 Last Admin: 05/23/23 21:38 Dose: 999 mls/hr Documented By: THELMA Imaging Data Radiologist's Impression: Abdomen/Pelvis CT 05/23/23 19:48 Exam(s): CT ABDOMEN + PELVIS Without Contrast EXAM: CT Abdomen and Pelvis Without Intravenous Contrast CLINICAL HISTORY: poss urinary obstr. TECHNIQUE: Axial computed tomography images of the abdomen and pelvis without intravenous contrast. CTDI is 28.14 mGy and DLP is 1330.96 mGy-cm. Automated exposure control was utilized for the study. A dose lowering technique was utilized adhering to the principles of ALARA. COMPARISON: CT abdomen and pelvis without contrast dated 07/29/2022 FINDINGS: Lung bases: Unremarkable. No mass. No consolidation. ABDOMEN: Liver: Unremarkable. Gallbladder and bile ducts: Unremarkable. No calcified stones. No ductal dilation. Pancreas: Unremarkable. No ductal dilation. Spleen: Unremarkable. No splenomegaly. Adrenals: Unremarkable. No mass. Kidneys and ureters: The unenhanced kidneys demonstrate stable contours without hydronephrosis or nephrolithiasis. No new perinephric abnormality or ureterectasis noted. Stable cortical cyst involving the superior medial aspect of the right kidney immediately above the level of the renal hilum, stable in size. Stomach and bowel: No evidence for bowel obstruction. Evaluation of the bowel mucosa is slightly limited without contrast; however, no definite focal asymmetry suggested. Minimal stool burden within the colon predominantly decompressed. PELVIS: Appendix: No findings to suggest acute appendicitis. Bladder: The bladder is only mildly filled but demonstrates diffuse bladder wall thickening and perivesicular fat stranding, new from the previous examination. No bladder stones. Reproductive: Unremarkable as visualized. ABDOMEN and PELVIS: Intraperitoneal space: Unremarkable. No free air. No significant fluid collection. Bones/joints: Stable degenerative changes of the thoracolumbar spine. Severe degenerative changes of the right hip and moderate degenerative changes of the left hip. No acute osseous abnormality. No dislocation. Soft tissues: Unremarkable. Vasculature: Atherosclerotic calcification of the normal caliber aorta and iliac arteries. No abdominal aortic aneurysm. Lymph nodes: Unremarkable. No enlarged lymph nodes. IMPRESSION: 1. The bladder is only mildly filled but demonstrates diffuse bladder wall thickening and perivesicular fat stranding, new from the previous examination. Findings are highly suspicious for cystitis. 2. The unenhanced kidneys demonstrate stable contours without hydronephrosis or nephrolithiasis. No new perinephric abnormality or ureterectasis noted. Electronically signed by: Maurice Steel MD 05/23/23 21:25 PM Discharge Plan Visit Data Chief Complaint: Hematuria Stated Complaint: BLOOD IN URINE ED Provider: Sree Patricia Discharge Problem: Tachycardia, Leukocytosis, Acute UTI, Dysuria Patient Disposition: Admitted As Inpatient Condition: Fair Forms Stand Alone Forms: My [facility] Prescriptions Prescriptions: No Action simvastatin 20 mg tablet 20 mg PO QPM Qty: 90 0RF metformin 500 mg tablet 500 mg PO BID Qty: 180 0RF Rx Instructions: TAKE 1 TABLET TWICE DAILY hydroxyzine HCl 25 mg tablet 25 mg PO AMHS Hold Instructions: Resume on 03/13/23. furosemide 20 mg tablet 20 mg PO QAM magnesium oxide 400 mg magnesium tablet 400 mg PO QAM diphenhydramine HCl [Benadryl Allergy] 25 mg Tablet 25 mg PO HS Referrals Referrals: Pro,Harlan Hernandez MD [Primary Care Provider] - Discharge Problem: Leukocytosis Qualifiers: Leukocytosis type: unspecified Qualified Code(s): D72.829 - Elevated white blood cell count, unspecified
[2023-05-23 20:53] LABS: Basophils # (auto) 0.05 K/uL (0.00-0.20); Basophils % (auto) 0.3 %; Eosinophils # (auto) 0.03 K/uL (0.00-0.50); Eosinophils % (auto) 0.2 %; Hematocrit (blood only) 43.9 % (42.0-52.0); Hemoglobin 14.6 g/dl (14.0-18.0); Immature Granulocytes # (auto) 0.06 K/uL (0.01-0.20); Immature Granulocytes % (auto) 0.3 %; Lymphocytes # (auto) 1.38 K/uL (1.20-3.40); Lymphocytes % (auto) 7.4 %; Mean Corpuscular Hemoglobin 28.9 pg (25.0-34.0); Mean Corpuscular Hgb Conc 33.3 g/dL (32.0-36.0); Mean Corpuscular Volume 86.8 fL (80.0-100.0); Mean Platelet Volume 9.2 fL (9.4-12.4); Monocytes # (auto) 1.58 K/uL (0.11-0.59); Monocytes % (auto) 8.4 %; Neutrophils % (auto) 83.4 %; Platelet Count 251 K/uL (130-400); RDW Coefficient of Variation 14.1 % (11.5-14.5); Red Blood Count 5.06 M/uL (4.70-6.10)
[2023-05-23 21:09] LABS: Albumin Globulin Ratio 1.1 (0.9-2); Albumin Level 3.9 gm/dl (3.4-5.0); BUN Creatinine Ratio 9.2 (10-20); Bilirubin,Total 1.2 mg/dl (0.2-1.0); Calcium 9.2 mg/dl (8.6-10.3); Creatinine Clr Calc Pharmacy 82.9 ml/min; Est GFR (African American) 77.1 ml/min; Est GFR (Non-African American) 66.5 ml/min; Globulin 3.5 gm/dl (2.5-4.0); Potassium 3.9 mmol/L (3.5-5.1); Total Protein 7.4 gm/dl (6.0-8.3)
--- NOTE | 2023-05-23 21:26 | CT Scan Report ---
Exam(s): CT ABDOMEN + PELVIS Without Contrast EXAM: CT Abdomen and Pelvis Without Intravenous Contrast CLINICAL HISTORY: poss urinary obstr. TECHNIQUE: Axial computed tomography images of the abdomen and pelvis without intravenous contrast. CTDI is 28.14 mGy and DLP is 1330.96 mGy-cm. Automated exposure control was utilized for the study. A dose lowering technique was utilized adhering to the principles of ALARA. COMPARISON: CT abdomen and pelvis without contrast dated 07/29/2022 FINDINGS: Lung bases: Unremarkable. No mass. No consolidation. ABDOMEN: Liver: Unremarkable. Gallbladder and bile ducts: Unremarkable. No calcified stones. No ductal dilation. Pancreas: Unremarkable. No ductal dilation. Spleen: Unremarkable. No splenomegaly. Adrenals: Unremarkable. No mass. Kidneys and ureters: The unenhanced kidneys demonstrate stable contours without hydronephrosis or nephrolithiasis. No new perinephric abnormality or ureterectasis noted. Stable cortical cyst involving the superior medial aspect of the right kidney immediately above the level of the renal hilum, stable in size. Stomach and bowel: No evidence for bowel obstruction. Evaluation of the bowel mucosa is slightly limited without contrast; however, no definite focal asymmetry suggested. Minimal stool burden within the colon predominantly decompressed. PELVIS: Appendix: No findings to suggest acute appendicitis. Bladder: The bladder is only mildly filled but demonstrates diffuse bladder wall thickening and perivesicular fat stranding, new from the previous examination. No bladder stones. Reproductive: Unremarkable as visualized. ABDOMEN and PELVIS: Intraperitoneal space: Unremarkable. No free air. No significant fluid collection. Bones/joints: Stable degenerative changes of the thoracolumbar spine. Severe degenerative changes of the right hip and moderate degenerative changes of the left hip. No acute osseous abnormality. No dislocation. Soft tissues: Unremarkable. Vasculature: Atherosclerotic calcification of the normal caliber aorta and iliac arteries. No abdominal aortic aneurysm. Lymph nodes: Unremarkable. No enlarged lymph nodes. IMPRESSION: 1. The bladder is only mildly filled but demonstrates diffuse bladder wall thickening and perivesicular fat stranding, new from the previous examination. Findings are highly suspicious for cystitis. 2. The unenhanced kidneys demonstrate stable contours without hydronephrosis or nephrolithiasis. No new perinephric abnormality or ureterectasis noted. Electronically signed by: Maurice Steel MD 05/23/23 21:25 PM
--- NOTE | 2023-05-23 22:43 | History & Physical Report ---
Date of Service May 23, 2023 Assessment & Plan (1) Sepsis: Plan: The patient has leukocytosis hypotension and tachycardia consistent with clinical sepsis. Of urinary source. Volume resuscitation and IV antibiotics as discussed below (2) Acute UTI: Plan: Urine cultures were obtained blood cultures were obtained. IV cefepime was administered in the ER. At this time we will continue with cep halosporin coverage with the form of IV Rocephin at this time beginning in the a.m. (3) Hematuria: Plan: This is secondary to acute UTI. Monitor (4) Leukocytosis: Plan: This is secondary to acute infection/sepsis monitor (5) Tachycardia: Plan: Secondary to sepsis monitor we did discuss with nurse if tachycardia does not resolve after 1.5 L of saline they are to let me know (6) DMII (diabetes mellitus, type 2): Plan: Takes metformin at home we will continue at this time cautiously. Will do Accu- Cheks before meals and at bedtime will be notified if less than 80 or greater than 180 per the patient and family he did not require insulin coverage during his last hospitalization. We will check a hemoglobin A1c. (7) Morbid obesity with BMI of 40.0-44.9, adult: Plan: Chronic (8) Open leg wound: Plan: The patient has significant ichthyosis chronic venous stasis etc. Does not appear to have any active infection or anything to culture at this time but we will get local wound care involved (9) Venous stasis: Plan: Chronic. Plan As discussed above. Please refer to orders for further planning. History of Present Illness Chief Complaint: Hematuria tachycardia concern for sepsis by primary care physician sent to ER for evaluation Primary Care Provider: Harlan Osorio MD Pleasant 73-year-old gentleman who was at his primary care doctor's office today he was noticed to be tachycardic at 2 AM this morning he developed some visible hematuria. He has never had this before. He was directed to the ER for further evaluation and treatment. Upon presentation to the ER he was noted to be tachycardic around 120 bpm mildly hypotensive at 98/78. Actually mildly hypothermic 36.4. Oxygen saturations are satisfactory at 93% on room air. Laboratory studies revealed a significant leukocytosis with left shift and urinalysis revealed a positive UTI. Urine cultures were sent blood cultures were sent patient was given 1.5 L of normal saline IV which is still infusing at the time of this sack sorter. In addition the patient received IV cefepime by Dr. Patricia-JUAN CARLOS attending. We were called to entertain admitting the patient for further evaluation and management of clinical sepsis urinary source Allergies Allergy/AdvReac Type Severity Reaction Status Date / Time sulfamethoxazole Allergy Mild itching Verified 05/23/23 17:46 [From Bactrim] trimethoprim [From Bactrim] Allergy Mild itching Verified 05/23/23 17:46 cheese Allergy Unknown SICK TO Verified 05/23/23 17:46 STOMACH Penicillins Allergy Unknown RASH Verified 05/23/23 17:46 Home Medications Medication Instructions Recorded Confirmed Type hydroxyzine HCl 25 mg tablet 25 mg PO AMHS 03/02/23 05/23/23 History metformin 500 mg tablet 500 mg PO BID #180 tabs 04/22/23 05/23/23 Rx simvastatin 20 mg tablet 20 mg PO QPM #90 tabs 04/22/23 05/23/23 Rx diphenhydramine HCl 25 mg tablet 25 mg PO HS 05/23/23 05/23/23 History (Benadryl Allergy) furosemide 20 mg tablet 20 mg PO QAM 05/23/23 05/23/23 History magnesium oxide 400 mg PO QAM 05/23/23 05/23/23 History Past Med/Surg History Medical History (Updated 05/23/23 @ 22:40 by Colt Middleton, PhD, DO) Hematuria Clinical sepsis Impaired gait and mobility Immobility Depression Cellulitis of both lower extremities Seizure-like activity Bacteremia Acute hypoxemic respiratory failure Pneumonia Pneumonia Influenza COPD (chronic obstructive pulmonary disease) Asthma Diverticulosis HTN (hypertension) Sleep apnea Dyslipidemia GERD (gastroesophageal reflux disease) Surgical History S/P tonsillectomy and adenoidectomy History of throat surgery for sleep apnea- Dr. Arriola S/P partial colectomy H/O oral surgery H/O inguinal hernia repair Family History Other Adopted Family history unknown Denies family history of Ovarian cancer Prostate cancer Myocardial infarction Breast cancer Colorectal cancer Social History Smoking Status: Never smoker Tobacco Type: Cigarettes Age Started Using Tobacco: 15; Age Quit Using Tobacco: 47; packs per day: 2; Second Hand Exposure: No; Do You Dip or Chew Tobacco: No; Hx Alcohol Use: No Hx Substance Use: No Preferred Language: Azeri Communication Ability: Effective Visual Impairment: No Limitations Hearing Ability: Normal Director Of Customer Service Required: Yes Beliefs That Will Affect Care: None marital status: Current Living Situation: Spouse and Family current occupational status: retired 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 Feels Safe at Home: Yes Childhood Exposure to Second-Hand Smoke: Yes Diet: regular during the past year weight has: remained stable Dental Care, Regularly: No Physical Activity Frequency: Does not Exercise Seatbelt Use: always Sunscreen Use: No Assistive Devices: Wheelchair Review of Systems Review of Systems: A 10 point review system was obtained unless otherwise stated here or in history of present illness are negative and noncontributory to chief complaint Physical Exam Physical Exam: General: Pleasant 73-year-old male in no acute distress accompanied by his and daughter at the time of my examination he is alert and oriented x 3 and interacts appropriately HEENT: Normocephalic atraumatic pupils are equal round and reactive to light bilaterally. No scleral icterus no conjunctival injection external auditory canals are patent septum is in the midline nose is without discharge oral mucosa is pink and moist without lesion. NECK: Supple no rigidity no lymphadenopathy no thyromegaly no carotid bruits no JVD no masses. HEART: Mild tachycardia on auscultation approximately 110 bpm regular rhythm I do not appreciate any ectopy or rub. No murmur. LUNGS: Clear to auscultation bilaterally and anteriorly with no evidence of adventitious sounds/wheezes rales or rhonchi. ABDOMEN: Morbidly obese, soft nontender, no rebound, no peritoneal signs, positive bowel sounds, no appreciable organomegaly. EXTREMITIES: Intact, no peripheral cyanosis, clubbing. The patient has very significant changes of chronic venous stasis with ichthyosis. He was here back in February with bilateral lower extremity cellulitis superimposed venous stasis and was on cefepime and daptomycin at that time. The patient does have some open sores but there does not appear to be any active infection on my exam today. He does have some dependent edema he is essentially nonambulatory stands to pivot only. NEUROLOGICAL: Cranial nerves II through XII are grossly intact with no focal deficit elicited upon examination. No tremor. Results & Data Results & Data Vital Signs (Past 12 Hours) Vital Signs Temp Pulse Pulse Resp BP BP Pulse Ox 05/23/23 21:56 115 H 18 98/78 L 93 05/23/23 19:48 120 H 05/23/23 19:47 119 H 20 179/102 H 94 05/23/23 19:21 36.4 C L 129 H 18 141/66 H 92 O2 Del Method 05/23/23 21:56 Room Air 05/23/23 19:48 05/23/23 19:47 Room Air 05/23/23 19:21 Room Air Code Status & VTE Plan Code Status Full code. I discussed with him in depth. However he is quite clear that he would not want to remain on life support for extended period of time if there was no reasonable hope of recovery to his baseline health status VTE Prophylaxis Plan VTE Prophylaxis will be ordered: Yes Reason for no VTE drug order: Contraindicated PG Care Time/CCT Total # of Minutes Spent Total Time Spent with Patient: Total time spent is greater than 50% in coordination of care (as documented) at patient's floor/unit and/or counseling patient: Coding Level of Care Code 93796 INT INP/OBS CARE 3/75MIN Diagnoses Sepsis A41.9 Acute UTI N39.0 Hematuria R31.9 Leukocytosis D72.829 Leukocytosis type: unspecified Tachycardia R00.0 DMII (diabetes mellitus, type 2) E11.9 Morbid obesity with BMI of 40.0-44.9, adult E66.01; Z68.41 Open leg wound S81.809A Venous stasis I87.8 (4) Leukocytosis Leukocytosis type: unspecified Qualified Code(s): D72.829 - Elevated white blood cell count, unspecified
[2023-05-24] MEDS ORDERED: DEXTROSE 50% 50 ML SYRINGE IV PRN (00:15)
[2023-05-24] MEDS ORDERED: GLUCOSE 10 TAB/TUBE PO PRN (00:15)
[2023-05-24] MEDS ORDERED: GLUCOSE 40% GEL 15 GM TUBE PO PRN (00:15)
[2023-05-24] MEDS ORDERED: GLUCAGON FOR INJ 1 MG VIAL SQ PRN (00:15)
[2023-05-24] MEDS ORDERED: CARBOHYDRATES FOR HYPOGLYCEMIA PO PRN (00:15)
[2023-05-24] MEDS ORDERED: ACETAMINOPHEN 325 MG TAB PO PRN (00:15)
[2023-05-24] MEDS ORDERED: ONDANSETRON INJ 2 MG/ML 2 ML VIAL IV PRN (00:15)
[2023-05-24 06:36] LABS: Hematocrit (blood only) 41.1 % (42.0-52.0); Hemoglobin 13.8 g/dl (14.0-18.0); Mean Corpuscular Hemoglobin 28.9 pg (25.0-34.0); Mean Corpuscular Hgb Conc 33.6 g/dL (32.0-36.0); Mean Corpuscular Volume 86.2 fL (80.0-100.0); Platelet Count 233 K/uL (130-400); RDW Coefficient of Variation 13.9 % (11.5-14.5); RDW Standard Deviation 43.9 fL (36.4-46.3); Red Blood Count 4.77 M/uL (4.70-6.10); White Blood Count 13.84 K/ul (4.8-10.8)
[2023-05-24 07:06] LABS: Estimated Average Glucose 117 mg/dl; Hemoglobin A1C 5.7 % (4.5-5.6)
[2023-05-24 07:15] LABS: Albumin Globulin Ratio 1.3 (0.9-2); Albumin Level 3.7 gm/dl (3.4-5.0); BUN Creatinine Ratio 11.1 (10-20); Bilirubin,Total 1.3 mg/dl (0.2-1.0); Calcium 8.9 mg/dl (8.6-10.3); Creatinine Clr Calc Pharmacy 100.7 ml/min; Est GFR (African American) 97.2 ml/min; Est GFR (Non-African American) 83.8 ml/min; Globulin 2.8 gm/dl (2.5-4.0); Potassium 3.9 mmol/L (3.5-5.1); Total Protein 6.5 gm/dl (6.0-8.3)
[2023-05-24] MEDS: FUROSEMIDE 20 MG TAB PO SCH (08:00)
[2023-05-24] MEDS: hydrOXYzine HCl 25 MG TAB PO SCH ×2 (08:00→21:00)
[2023-05-24] MEDS: MAGNESIUM OXIDE 400 MG TAB PO SCH (08:01)
[2023-05-24] MEDS: metFORMIN HCL 500 MG TAB PO SCH ×2 (08:01→17:26)
--- NOTE | 2023-05-24 12:17 | Electrocardiogram Report ---
Test Reason : Blood Pressure : / mmHG Vent. Rate : 118 BPM Atrial Rate : 118 BPM P-R Int : 158 ms QRS Dur : 112 ms QT Int : 344 ms P-R-T Axes : 070 034 055 degrees QTc Int : 482 ms Sinus tachycardia Low voltage QRS Incomplete right bundle branch block Possible Inferior infarct (cited on or before 29-JUL-2022) Abnormal ECG When compared with ECG of 02-MAR-2023 14:26, Premature ventricular complexes are no longer Present Confirmed by Malcolm Mayfield ([id number]) on 05/24/2023 12:17:25 PM Referred By: REFERRED SELF Confirmed By:Malcolm Mayfield
--- NOTE | 2023-05-24 15:08 | Hospitalist Progress Note ---
Date of Service May 24, 2023 Assessment & Plan (1) Sepsis: Plan: Improving Leukocytosis improved from 18-13 No more hypotensive, tachycardic Urine source IV antibiotics as discussed below (2) Acute UTI: Plan: Urine culture growing gram-negative gasper, awaiting further identification and sensitivities Continue IV Rocephin Follow urine cultures and blood cultures (3) Hematuria: Plan: This is secondary to acute UTI. Monitor (4) Leukocytosis: Plan: This is secondary to acute infection/sepsis monitor Improving (5) Tachycardia: Plan: Secondary to sepsis Resolved (6) DMII (diabetes mellitus, type 2): Plan: Takes metformin at home we will continue at this time cautiously. Will do Accu- Cheks before meals and at bedtime will be notified if less than 80 or greater than 180 per the patient and family he did not require insulin coverage during his last hospitalization. A1c 5.7 (7) Morbid obesity with BMI of 40.0-44.9, adult: Plan: Chronic (8) Open leg wound: Plan: The patient has significant ichthyosis chronic venous stasis etc. Does not appear to have any active infection or anything to culture at this time but we will get local wound care involved (9) Venous stasis: Plan: Chronic. Plan Full code DVT prophylaxis: SCD. No chemical prophylaxis in the setting of recent hematuria Admission and Anticipated Discharge Date Admission Date: May 23, 2023 Subjective Patient says he feels significantly better than yesterday. Review of Systems Review of Systems: All systems reviewed & are unremarkable except as noted in Subjective Physical Exam Physical Exam: General: Awake, conversant. Obese Heart: S1, S2/regular rate and rhythm, no murmur rubs or gallops Lungs: Clear to auscultation bilaterally. Normal effort Abdomen: Soft/nontender/nondistended. No hepatosplenomegaly Extremities: No clubbing/cyanosis. No edema Behavior: Appropriate, cooperative Results & Data Results & Data Vital Signs (Past 12 Hours) Vital Signs Temp Pulse Pulse Resp BP BP Pulse Ox 05/24/23 11:33 36.7 C 89 20 119/69 93 05/24/23 09:41 05/24/23 09:01 36.8 C 108 H 20 122/62 95 05/24/23 07:15 105 H 05/24/23 05:19 36.7 C 68 20 120/71 94 O2 Del Method 12/15/23 11:33 Room Air 05/24/23 09:41 Room Air 05/24/23 09:01 Room Air 05/24/23 07:15 05/24/23 05:19 Room Air Laboratory Results Abnormal lab results 05/23/23 05/23/23 05/24/23 Range/Units 19:58 20:26 06:08 WBC 18.70 H 13.84 H (4.8-10.8) K/ul Hgb 13.8 L (14.0-18.0) g/dl Hct 41.1 L (42.0-52.0) % MPV 9.2 L 9.0 L (9.4-12.4) fL Neut # (Auto) 15.60 H (1.40-6.50) K/uL [place] # (Auto) 1.58 H (0.11-0.59) K/uL BUN/Creatinine Ratio 9.2 L (10-20) Glucose 142 H 110 H (70-99(Fasting)) mg/dl POC Glucose (70-99) mg/dl Hemoglobin A1c 5.7 H (4.5-5.6) % Total Bilirubin 1.2 H 1.3 H (0.2-1.0) mg/dl AST 12 L (13-39) U/L ALT 6 L (7-52) U/L Urine Appearance Turbid A (Clear) Urine Protein 3+ H (Negative) Urine Ketones 1+ H (Negative) Urine Blood 3+ H (Negative) Urine Nitrite Positive A (Negative) Urine Bilirubin 2+ H (Negative) Ur Leukocyte Esterase 3+ H (Negative) Urine RBC >30 H (0-4) /hpf Urine WBC >30 H (0-5) /hpf Urine Bacteria 3+ H (Negative) 05/24/23 Range/Units 07:55 WBC (4.8-10.8) K/ul Hgb (14.0-18.0) g/dl Hct (42.0-52.0) % MPV (9.4-12.4) fL Neut # (Auto) (1.40-6.50) K/uL [place] # (Auto) (0.11-0.59) K/uL BUN/Creatinine Ratio (10-20) Glucose (70-99(Fasting)) mg/dl POC Glucose 108 H (70-99) mg/dl Hemoglobin A1c (4.5-5.6) % Total Bilirubin (0.2-1.0) mg/dl AST (13-39) U/L ALT (7-52) U/L Urine Appearance (Clear) Urine Protein (Negative) Urine Ketones (Negative) Urine Blood (Negative) Urine Nitrite (Negative) Urine Bilirubin (Negative) Ur Leukocyte Esterase (Negative) Urine RBC (0-4) /hpf Urine WBC (0-5) /hpf Urine Bacteria (Negative) Diagnostic Findings Abdomen/Pelvis CT 05/23/23 19:48 Exam(s): CT ABDOMEN + PELVIS Without Contrast EXAM: CT Abdomen and Pelvis Without Intravenous Contrast CLINICAL HISTORY: poss urinary obstr. TECHNIQUE: Axial computed tomography images of the abdomen and pelvis without intravenous contrast. CTDI is 28.14 mGy and DLP is 1330.96 mGy-cm. Automated exposure control was utilized for the study. A dose lowering technique was utilized adhering to the principles of ALARA. COMPARISON: CT abdomen and pelvis without contrast dated 07/29/2022 FINDINGS: Lung bases: Unremarkable. No mass. No consolidation. ABDOMEN: Liver: Unremarkable. Gallbladder and bile ducts: Unremarkable. No calcified stones. No ductal dilation. Pancreas: Unremarkable. No ductal dilation. Spleen: Unremarkable. No splenomegaly. Adrenals: Unremarkable. No mass. Kidneys and ureters: The unenhanced kidneys demonstrate stable contours without hydronephrosis or nephrolithiasis. No new perinephric abnormality or ureterectasis noted. Stable cortical cyst involving the superior medial aspect of the right kidney immediately above the level of the renal hilum, stable in size. Stomach and bowel: No evidence for bowel obstruction. Evaluation of the bowel mucosa is slightly limited without contrast; however, no definite focal asymmetry suggested. Minimal stool burden within the colon predominantly decompressed. PELVIS: Appendix: No findings to suggest acute appendicitis. Bladder: The bladder is only mildly filled but demonstrates diffuse bladder wall thickening and perivesicular fat stranding, new from the previous examination. No bladder stones. Reproductive: Unremarkable as visualized. ABDOMEN and PELVIS: Intraperitoneal space: Unremarkable. No free air. No significant fluid collection. Bones/joints: Stable degenerative changes of the thoracolumbar spine. Severe degenerative changes of the right hip and moderate degenerative changes of the left hip. No acute osseous abnormality. No dislocation. Soft tissues: Unremarkable. Vasculature: Atherosclerotic calcification of the normal caliber aorta and iliac arteries. No abdominal aortic aneurysm. Lymph nodes: Unremarkable. No enlarged lymph nodes. IMPRESSION: 1. The bladder is only mildly filled but demonstrates diffuse bladder wall thickening and perivesicular fat stranding, new from the previous examination. Findings are highly suspicious for cystitis. 2. The unenhanced kidneys demonstrate stable contours without hydronephrosis or nephrolithiasis. No new perinephric abnormality or ureterectasis noted. Electronically signed by: Maurice Steel MD 05/23/23 21:25 PM PG Care Time/CCT Total # of Minutes Spent Total Time Spent with Patient: Total time spent is greater than 50% in coordination of care (as documented) at patient's floor/unit and/or counseling patient: Coding Level of Care Code 04850 SUB INP/OBS CARE 2/35MIN Diagnoses Sepsis A41.9 Acute UTI N39.0 Hematuria R31.9 Leukocytosis D72.829 Leukocytosis type: unspecified Tachycardia R00.0 DMII (diabetes mellitus, type 2) E11.9 Morbid obesity with BMI of 40.0-44.9, adult E66.01; Z68.41 Open leg wound S81.809A Venous stasis I87.8 (4) Leukocytosis Leukocytosis type: unspecified Qualified Code(s): D72.829 - Elevated white blood cell count, unspecified
[2023-05-24] MEDS: SIMVASTATIN 20 MG TAB PO SCH (21:00)
[2023-05-24] MEDS: cefTRIAXone SODIUM 2,000 MG in DEXTROSE 5 % MINI-B 50 ML IV SCH (21:00)
[2023-05-24] MEDS: diphenhydrAMINE Capsule 25 MG CAP PO SCH (21:00)
[2023-05-25] MEDS: metFORMIN HCL 500 MG TAB PO SCH ×2 (08:08→17:16)
[2023-05-25] MEDS: FUROSEMIDE 20 MG TAB PO SCH (08:08)
[2023-05-25] MEDS: hydrOXYzine HCl 25 MG TAB PO SCH ×2 (08:08→20:15)
[2023-05-25] MEDS: MAGNESIUM OXIDE 400 MG TAB PO SCH (08:08)
[2023-05-25 09:21] LABS: Hematocrit (blood only) 44.6 % (42.0-52.0); Hemoglobin 14.3 g/dl (14.0-18.0); Mean Corpuscular Hemoglobin 28.7 pg (25.0-34.0); Mean Corpuscular Hgb Conc 32.1 g/dL (32.0-36.0); Mean Corpuscular Volume 89.6 fL (80.0-100.0); Platelet Count 211 K/uL (130-400); RDW Coefficient of Variation 14.4 % (11.5-14.5); RDW Standard Deviation 46.7 fL (36.4-46.3); Red Blood Count 4.98 M/uL (4.70-6.10); White Blood Count 10.03 K/ul (4.8-10.8)
[2023-05-25 09:22] LABS: Creatinine Clr Calc Pharmacy 82.5 ml/min; Est GFR (Non-African American) 67.3 ml/min; Potassium 3.8 mmol/L (3.5-5.1)
--- NOTE | 2023-05-25 14:55 | Hospitalist Progress Note ---
Date of Service May 25, 2023 Assessment & Plan (1) Sepsis: Plan: Improving Leukocytosis resolved No more hypotensive, tachycardic Urine source IV antibiotics as discussed below (2) Acute UTI: Plan: Urine culture growing gram-negative gasper, awaiting further identification and sensitivities Continue IV Rocephin Follow urine cultures and blood cultures Hoping to discharge on p.o. antibiotic tomorrow (3) Hematuria: Plan: This is secondary to acute UTI. Monitor (4) Leukocytosis: Plan: This is secondary to acute infection/sepsis monitor Improving (5) Tachycardia: Plan: Secondary to sepsis Resolved (6) DMII (diabetes mellitus, type 2): Plan: Takes metformin at home we will continue at this time cautiously. Will do Accu- Cheks before meals and at bedtime will be notified if less than 80 or greater than 180 per the patient and family he did not require insulin coverage during his last hospitalization. A1c 5.7 (7) Morbid obesity with BMI of 40.0-44.9, adult: Plan: Chronic (8) Open leg wound: Plan: The patient has significant ichthyosis chronic venous stasis etc. Does not appear to have any active infection or anything to culture at this time but we will get local wound care involved (9) Venous stasis: Plan: Chronic. Plan Full code DVT prophylaxis: SCD. No chemical prophylaxis in the setting of recent hematuria Admission and Anticipated Discharge Date Admission Date: May 23, 2023 Subjective Patient feels well. Denies chest pain or shortness of breath. Says that he is feeling better and better every day. Review of Systems Review of Systems: All systems reviewed & are unremarkable except as noted in Subjective Physical Exam Physical Exam: General: Awake, conversant. Obese Heart: S1, S2/regular rate and rhythm, no murmur rubs or gallops Lungs: Clear to auscultation bilaterally. Normal effort Abdomen: Soft/nontender/nondistended. No hepatosplenomegaly Extremities: No clubbing/cyanosis. No edema Behavior: Appropriate, cooperative Results & Data Results & Data Vital Signs (Past 12 Hours) Vital Signs Temp Pulse Pulse Resp BP Pulse Ox O2 Del Method 05/25/23 12:40 36.8 C 84 18 153/80 H 90 Room Air 05/25/23 09:02 36.7 C 79 18 152/77 H 90 Room Air 05/25/23 08:00 Room Air 05/25/23 07:56 71 05/25/23 03:33 36.6 C 81 18 117/72 91 Room Air Laboratory Results Abnormal lab results 05/24/23 05/24/23 05/25/23 Range/Units 16:40 20:17 08:51 RDW Std Deviation 46.7 H (36.4-46.3) fL MPV 9.0 L (9.4-12.4) fL POC Glucose 116 H 102 H (70-99) mg/dl PG Care Time/CCT Total # of Minutes Spent Total Time Spent with Patient: Total time spent is greater than 50% in coordination of care (as documented) at patient's floor/unit and/or counseling patient: Coding Level of Care Code 09834 SUB INP/OBS CARE 2/35MIN Diagnoses Sepsis A41.9 Acute UTI N39.0 Hematuria R31.9 Leukocytosis D72.829 Leukocytosis type: unspecified Tachycardia R00.0 DMII (diabetes mellitus, type 2) E11.9 Morbid obesity with BMI of 40.0-44.9, adult E66.01; Z68.41 Open leg wound S81.809A Venous stasis I87.8 (4) Leukocytosis Leukocytosis type: unspecified Qualified Code(s): D72.829 - Elevated white blood cell count, unspecified
[2023-05-25] MEDS: cefTRIAXone SODIUM 2,000 MG in DEXTROSE 5 % MINI-B 50 ML IV SCH (20:13)
[2023-05-25] MEDS: SIMVASTATIN 20 MG TAB PO SCH (20:15)
[2023-05-25] MEDS: diphenhydrAMINE Capsule 25 MG CAP PO SCH (20:15)
[2023-05-26 05:41] LABS: Hematocrit (blood only) 38.6 % (42.0-52.0); Hemoglobin 12.4 g/dl (14.0-18.0); Mean Corpuscular Hemoglobin 28.7 pg (25.0-34.0); Mean Corpuscular Hgb Conc 32.1 g/dL (32.0-36.0); Mean Corpuscular Volume 89.4 fL (80.0-100.0); Mean Platelet Volume 9.3 fL (9.4-12.4); Platelet Count 205 K/uL (130-400); RDW Coefficient of Variation 14.1 % (11.5-14.5); RDW Standard Deviation 46.1 fL (36.4-46.3); Red Blood Count 4.32 M/uL (4.70-6.10); White Blood Count 11.07 K/ul (4.8-10.8)
[2023-05-26 05:57] LABS: BUN Creatinine Ratio 16.7 (10-20); Calcium 8.5 mg/dl (8.6-10.3); Creatinine Clr Calc Pharmacy 82.5 ml/min; Est GFR (Non-African American) 67.3 ml/min; Potassium 3.8 mmol/L (3.5-5.1)
[2023-05-26] MEDS: hydrOXYzine HCl 25 MG TAB PO SCH (08:19)
[2023-05-26] MEDS: FUROSEMIDE 20 MG TAB PO SCH (08:19)
[2023-05-26] MEDS: metFORMIN HCL 500 MG TAB PO SCH (08:19)
[2023-05-26] MEDS ORDERED: DOCUSATE SODIUM 100 MG CAP PO SCH (09:00)
[2023-05-26] MEDS ORDERED: POLYETHYLENE (MIRALAX) 17 GM PACK PO SCH (09:00)
[2023-05-26] MEDS: MAGNESIUM OXIDE 400 MG TAB PO SCH (09:56)
--- NOTE | 2023-05-26 10:52 | Discharge Summary ---
Date of Service May 26, 2023 Admission HPI Per Admitting Provider Daisha 73-year-old gentleman who was at his primary care doctor's office today he was noticed to be tachycardic at 2 AM this morning he developed some visible hematuria. He has never had this before. He was directed to the ER for further evaluation and treatment. Upon presentation to the ER he was noted to be tachycardic around 120 bpm mildly hypotensive at 98/78. Actually mildly hypothermic 36.4. Oxygen saturations are satisfactory at 93% on room air. Laboratory studies revealed a significant leukocytosis with left shift and urinalysis revealed a positive UTI. 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 In addition the patient received IV cefepime by Dr. Patricia-ER attending. We were called to entertain admitting the patient for further evaluation and management of clinical sepsis urinary source Admission Exam Per Admitting Provider General: Daisha 73-year-old male in no acute distress accompanied by his and daughter at the time of my examination he is alert and oriented x 3 and interacts appropriately HEENT: Normocephalic atraumatic pupils are equal round and reactive to light bilaterally. No scleral icterus no conjunctival injection external auditory canals are patent septum is in the midline nose is without discharge oral mucosa is pink and moist without lesion. NECK: Supple no rigidity no lymphadenopathy no thyromegaly no carotid bruits no JVD no masses. HEART: Mild tachycardia on auscultation approximately 110 bpm regular rhythm I do not appreciate any ectopy or rub. No murmur. LUNGS: Clear to auscultation bilaterally and anteriorly with no evidence of adventitious sounds/wheezes rales or rhonchi. ABDOMEN: Morbidly obese, soft nontender, no rebound, no peritoneal signs, positive bowel sounds, no appreciable organomegaly. EXTREMITIES: Intact, no peripheral cyanosis, clubbing. The patient has very significant changes of chronic venous stasis with ichthyosis. He was here back in February with bilateral lower extremity cellulitis superimposed venous stasis and was on cefepime and daptomycin at that time. The patient does have some open sores but there does not appear to be any active infection on my exam today. He does have some dependent edema he is essentially nonambulatory stands to pivot only. NEUROLOGICAL: Cranial nerves II through XII are grossly intact with no focal deficit elicited upon examination. No tremor. Principal Diagnosis Acute uncomplicated Proteus pyelonephritis with sepsis Discharge Exam General: Awake, conversant. Obese Heart: S1, S2/regular rate and rhythm, no murmur rubs or gallops Lungs: Clear to auscultation bilaterally. Normal effort Abdomen: Soft/nontender/nondistended. No hepatosplenomegaly Extremities: No clubbing/cyanosis. No edema Behavior: Appropriate, cooperative Discharge Data Allergies Allergy/AdvReac Type Severity Reaction Status Date / Time sulfamethoxazole Allergy Mild itching Verified 05/23/23 17:46 [From Bactrim] trimethoprim [From Bactrim] Allergy Mild itching Verified 05/23/23 17:46 cheese Allergy Unknown SICK TO Verified 05/23/23 17:46 STOMACH Penicillins Allergy Unknown RASH Verified 05/23/23 17:46 Consultations 05/23/23 21:45 ED Decision to Admit Stat Ordered Studies 05/23/23 19:48 CT abd pelvis wo con Stat Hospital Course (1) Sepsis: Resolved Leukocytosis resolved No more hypotensive, tachycardic Urine source IV antibiotics as discussed below (2) Acute UTI: Urine culture growing pansensitive Proteus IV Rocephin switched to p.o. Keflex (3) Hematuria: This is secondary to acute UTI. Resolved (4) Leukocytosis: This is secondary to acute infection/sepsis monitor Resolved (5) Tachycardia: Secondary to sepsis Resolved (6) DMII (diabetes mellitus, type 2): Takes metformin at home we will continue at this time cautiously. A1c 5.7 (7) Morbid obesity with BMI of 40.0-44.9, adult: Chronic (8) Open leg wound: The patient has significant ichthyosis chronic venous stasis etc. Does not appear to have any active infection or anything to culture at this time but we will get local wound care involved Continue outpatient wound care (9) Venous stasis: Chronic. Plan Discharge to home today Total Time Total Time Spent Total Time Spent (In Minutes): 35 Discharge Plan Discharge Items Patient Disposition: Home - Home Health Services Reason For Visit: SEPSIS, UTI, HEMATURIA Discharge Diagnosis: Acute uncomplicated pyelonephritis leading to sepsis and hematuria Condition on Discharge: Fair Activity: Resume your previous activity Non-emergency contact: Primary Care Provider Call non-emergency contact if: you have any medication questions and your symptoms worsen Follow-up/Referrals: Harlan Osorio MD [Primary Care Provider] - 05/29/23 3:00 pm (With Molly East PA-C) Diet: Regular Addtl Attending Provider Instructions: Advised to follow-up with PCP in 1 week Pending Studies at Discharge: No Stand-Alone Forms: My [facility] [address] [place], Smoking Cessation Medications and DC Order Prescriptions: New cephalexin 500 mg capsule 500 mg PO BID 4 Days Qty: 8 0RF Continued simvastatin 20 mg tablet 20 mg PO QPM Qty: 90 0RF metformin 500 mg tablet 500 mg PO BID Qty: 180 0RF Rx Instructions: TAKE 1 TABLET TWICE DAILY hydroxyzine HCl 25 mg tablet 25 mg PO AMHS Hold Instructions: Resume on 03/13/23. furosemide 20 mg tablet 20 mg PO QAM magnesium oxide 400 mg magnesium tablet 400 mg PO QAM diphenhydramine HCl [Benadryl Allergy] 25 mg Tablet 25 mg PO HS Discharge Orders: Discharge Order (Routine); Ordered 05/26/23 Ordered By: Qamar Solo Admission Data Admit Date/Time: 05/23/23 22:29 Attending Provider: Qamar Solo Admit Provider: Colt Middleton Primary Care Provider: Harlan Osorio Other Providers: Colt Middleton; [facility] Coding Level of Care Code 93486 INP/OBS DISCH >30 MIN Diagnoses Sepsis A41.9 Acute UTI N39.0 Hematuria R31.9 Leukocytosis D72.829 Leukocytosis type: unspecified Tachycardia R00.0 DMII (diabetes mellitus, type 2) E11.9 Morbid obesity with BMI of 40.0-44.9, adult E66.01; Z68.41 Open leg wound S81.809A Venous stasis I87.8
== END 2023-05-26 12:45 | disposition home health service (06) ==
LOC: ED 19:07 → 4W 22:29 → INTOOBSV 22:29 → SUATTDRO 22:29 → 4W 23:47

== ENCOUNTER 2024-01-29 13:33 | Observation (INO) ==
[2024-01-29 14:37] LABS: Basophils # (auto) 0.05 K/uL (0.00-0.20); Basophils % (auto) 0.6 %; Eosinophils # (auto) 0.27 K/uL (0.00-0.50); Eosinophils % (auto) 3.3 %; Hematocrit (blood only) 45.7 % (42.0-52.0); Hemoglobin 14.7 g/dl (14.0-18.0); Immature Granulocytes # (auto) 0.04 K/uL (0.01-0.20); Immature Granulocytes % (auto) 0.5 %; Lymphocytes # (auto) 1.74 K/uL (1.20-3.40); Lymphocytes % (auto) 21.3 %; Mean Corpuscular Hemoglobin 28.9 pg (25.0-34.0); Mean Corpuscular Hgb Conc 32.2 g/dL (32.0-36.0); Mean Corpuscular Volume 89.8 fL (80.0-100.0); Monocytes # (auto) 0.85 K/uL (0.11-0.59); Monocytes % (auto) 10.4 %; Neutrophils # (auto) 5.21 K/uL (1.40-6.50); Neutrophils % (auto) 63.9 %; Platelet Count 224 K/uL (130-400); RDW Coefficient of Variation 14.8 % (11.5-14.5); RDW Standard Deviation 48.8 fL (36.4-46.3); Red Blood Count 5.09 M/uL (4.70-6.10); White Blood Count 8.16 K/ul (4.8-10.8)
[2024-01-29 14:51] LABS: Albumin Globulin Ratio 1.1 (0.9-2); Albumin Level 4.1 gm/dl (3.4-5.0); BUN Creatinine Ratio 17.5 (10-20); Bilirubin,Total 0.8 mg/dl (0.2-1.0); Calcium 9.5 mg/dl (8.6-10.3); Creatinine Clr Calc Pharmacy 88.2 ml/min; Est GFR (Non-African American) 70.7 ml/min; Globulin 3.7 gm/dl (2.5-4.0); Total Protein 7.8 gm/dl (6.0-8.3)
--- NOTE | 2024-01-29 15:20 | Emergency Department Note ---
Impression & Plan Leg wound, right, 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 ED Provider Note NAME: VAZQUEZ PACE AGE: 74 SEX: M : 1950 ARRIVES VIA: Ambulance INFORMANT: Patient, ED PROVIDER(S): Nikkie Baker MD CHIEF COMPLAINT: Maggots in right lower extremity HPI: This is a 74-year-old male presenting for maggots in right extremity wound. Patient was seen by home health who the home health nurse was concerned on maggots. EMS arrived and noted the patient was in a place of squalor with feces on the ground and henry. They also confirmed that there were maggots in this patient's wound. They are advised to come to the hospital. The did wash out his wounds prior to coming to the hospital. Otherwise he is at these wounds for about 1 year and patient refused to go to wound care. He has not had any significant nausea vomiting or diarrhea. He has no increasing pain. He notes ability to walk, but limited due to legs being so large. He notes his legs have been more swollen over the past few days as well. ROS: See above HPI for pertinent positives & negatives. A total of 10 systems reviewed and were otherwise negative. PAST MEDICAL HISTORY: See Below PAST SURGICAL HISTORY: See Below FAMILY HISTORY: See Below SOCIAL HISTORY: See Below HOME MEDICATIONS: See Below ALLERGIES: See Below VITALS: See Below PHYSICAL EXAMINATION: General: resting comfortably in no acute distress Head: Normocephalic and atraumatic Eyes: Normal inspection, extraocular muscles intact Ear, nose, throat: Normal external exam Neck: Normal range of motion Respiratory: lungs clear to auscultation bilaterally Cardiovascular: Regular rate/rhythm, no murmur GI: soft, nontender, no guarding or rebound Extremities: Bilateral lower extremity swelling with right greater than left, large chronic skin changes, open wound to the bottom of the right lower extremity, no obvious maggots noted at this time, Neuro: The patient awake and alert, appropriately conversive, no focal deficits, symmetric faces Skin: Warm, dry, and intact MEDICAL DECISION MAKING: This is a 74-year-old man presenting for maggots in the right lower extremity. At this time I do not see the maggots but discomfort by both home nursing and EMS. Patient reportedly was in a disheveled home. Patient requires obvious wound care at this time but will do basic blood work to help elucidate any overt infection. Low concern for sepsis clinically with patient's reassuring vital signs. Slightly hypertensive but otherwise notes abnormalities. -Bloodwork is reviewed showing no leukocytosis or anemia. Electrolytes are within normal limits at this time. Urinalysis is unrevealing of UTI -Patient attempted to stand to use the urinal and maggots fell out of his leg/abdomen as per nursing staff -Patient required mission for wound debridement, wound care -Discussed with Dr. Cruz for admission Differential diagnosis: Low concern for necrotizing fasciitis, cellulitis, failure to thrive, lymphedema ER treatment provided: See below Independent History obtained from: Daughter, Diagnostics interpreted by me: ECG: None Cardiac Monitoring: An order was placed for continuous cardiac monitoring. The monitor shows a rate of 107 with sinus rhythm. Laboratory studies: As stated above and show below. Imaging studies: See below. 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) Dyslipidemia (Chronic) GERD (gastroesophageal reflux disease) (Chronic) Medical History Acute exacerbation of chronic obstructive pulmonary disease Clinical sepsis Cellulitis of both lower extremities Seizure-like activity Bacteremia Acute hypoxemic respiratory failure Pneumonia Pneumonia Influenza Diverticulosis Sleep apnea Surgical History S/P tonsillectomy and adenoidectomy History of throat surgery S/P partial colectomy H/O oral surgery H/O inguinal hernia repair Family History Other Adopted Family history unknown Denies family history of Ovarian cancer Prostate cancer Myocardial infarction Breast cancer Colorectal cancer Social History Smoking Status: Former smoker Tobacco Type: Cigarettes Age Started Using Tobacco: 15; Age Quit Using Tobacco: 47; packs per day: 2; Smoking End Date: 1996; Second Hand Exposure: No; Do You Dip or Chew Tobacco: No; Hx Alcohol Use: No Hx Substance Use: No Preferred Language: Vincentian Communication Ability: Effective Visual Impairment: No Limitations Hearing Ability: Normal 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 Bridge Operator Required: No Beliefs That Will Affect Care: None marital status: Current Living Situation: Family current occupational status: retired 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 Other Information That Helps Us Care for You: No Feels Safe at Home: Yes Safety Concerns: Feels Safe At This Time Childhood Exposure to Second-Hand Smoke: Yes Diet: regular during the past year weight has: remained stable Dental Care, Regularly: No Physical Activity Frequency: Does not Exercise Seatbelt Use: always Sunscreen Use: No Assistive Devices: None Allergies Allergies Allergy/AdvReac Type Severity Reaction Status Date / Time sulfamethoxazole Allergy Mild itching Verified 01/29/24 16:11 [From Bactrim] trimethoprim [From Bactrim] Allergy Mild itching Verified 01/29/24 16:11 cheese Allergy Unknown SICK TO Verified 01/29/24 16:11 STOMACH Penicillins Allergy Unknown RASH Verified 01/29/24 16:11 Home Meds Home Medications Medication Instructions Recorded Confirmed diphenhydramine HCl 25 mg tablet 25 mg PO HS 05/23/23 01/29/24 (Benadryl Allergy) Previous Rx's Medication Instructions Recorded hydroxyzine HCl 25 mg tablet 25 mg PO AMHS #30 tabs 08/07/23 metformin 500 mg tablet 500 mg PO BID #180 tabs 11/28/23 simvastatin 20 mg tablet 20 mg PO QPM #90 tabs 11/28/23 furosemide 20 mg tablet 20 mg PO QAM #90 tabs 12/18/23 Saccharomyces boulardii 250 mg 250 mg PO BID #20 caps 01/15/24 capsule (Florastor) cephalexin 500 mg capsule 500 mg PO TID #21 caps 01/24/24 Results & Data (ED) Vital Signs Vital Signs - 24 hr 01/29/24 13:40 01/29/24 14:46 01/29/24 15:33 Temperature 36.6 C Temperature Source Oral Pulse Rate 83 88 Pulse Rate [Apical] 92 H Respiratory Rate 19 17 Blood Pressure 152/79 H Blood Pressure [Left Arm] 107/72 Blood Pressure Mean 103 Blood Pressure Mean [Left Arm] 83 Pulse Oximetry 94 97 Oxygen Delivery Method Room Air Room Air Sepsis Recent Fever Within 48 Hours No Sepsis New/Unexplained Change in Mental Status N/A Sepsis Action Taken by Nursing No Action Required Laboratory Data 01/29/24 13:52 01/29/24 13:52 Lab Results 01/29/24 Range/Units 13:52 WBC 8.16 (4.8-10.8) K/ul RBC 5.09 (4.70-6.10) M/uL Hgb 14.7 (14.0-18.0) g/dl Hct 45.7 (42.0-52.0) % MCV 89.8 (80.0-100.0) fL MCH 28.9 (25.0-34.0) pg MCHC 32.2 (32.0-36.0) g/dL RDW Std Deviation 48.8 H (36.4-46.3) fL RDW Coeff of Jocelyn 14.8 H (11.5-14.5) % Plt Count 224 (130-400) K/uL MPV 9.0 L (9.4-12.4) fL Immature Gran % (Auto) 0.5 % Neut % (Auto) 63.9 % Lymph % (Auto) 21.3 % [place] % (Auto) 10.4 % Eos % (Auto) 3.3 % Baso % (Auto) 0.6 % Neut # (Auto) 5.21 (1.40-6.50) K/uL Lymph # (Auto) 1.74 (1.20-3.40) K/uL [place] # (Auto) 0.85 H (0.11-0.59) K/uL Eos # (Auto) 0.27 (0.00-0.50) K/uL Baso # (Auto) 0.05 (0.00-0.20) K/uL Immature Gran # (Auto) 0.04 (0.01-0.20) K/uL Sodium 140 (136-145) mmol/L Potassium 4.0 (3.5-5.1) mmol/L Chloride 102 (98-107) mmol/L Carbon Dioxide 30 (21-32) mmol/L Anion Gap 8 (3-11) BUN 18 (6-23) mg/dl Creatinine 1.03 (0.6-1.4) mg/dl Est Cr Clr Drug Dosing 88.2 ml/min Est GFR ( Amer) 82.0 ml/min Est GFR (Non-Af Amer) 70.7 ml/min BUN/Creatinine Ratio 17.5 (10-20) Glucose 131 H (70-99(Fasting)) mg/dl Calcium 9.5 (8.6-10.3) mg/dl Total Bilirubin 0.8 (0.2-1.0) mg/dl AST 14 (13-39) U/L ALT 10 (7-52) U/L Alkaline Phosphatase 86 (34-104) U/L C-Reactive Protein 1.35 H (0-0.5) mg/dl Total Protein 7.8 (6.0-8.3) gm/dl Albumin 4.1 (3.4-5.0) gm/dl Globulin 3.7 (2.5-4.0) gm/dl Albumin/Globulin Ratio 1.1 (0.9-2) Lipase 65 (11-82) U/L Procalcitonin < 0.02 (0-0.5) ng/ml Administered Medications Cephalexin HCl (Cephalexin 500 Mg Cap) 500 mg PO QID [facility]; Protocol Stop: 02/03/24 19:44 Last Admin: 01/29/24 21:43 Dose: 500 mg Documented By: LELA Diphenhydramine HCl (Diphenhydramine Capsule 25 Mg Cap) 25 mg PO HS [facility] Stop: 02/28/24 20:59 Last Admin: 01/29/24 21:44 Dose: 25 mg Documented By: LELA Doxycycline Hyclate (Doxycycline Hyclate 100 Mg Cap) 100 mg PO BID [facility] Stop: 02/03/24 20:59 Last Admin: 01/29/24 21:44 Dose: 100 mg Documented By: LELA Hydroxyzine HCl (Hydroxyzine Hcl 25 Mg Tab) 25 mg PO AMHS [facility] Stop: 02/28/24 20:59 Last Admin: 01/29/24 21:43 Dose: 25 mg Documented By: LELA Metformin HCl (Metformin Hcl 500 Mg Tab) 500 mg PO BIDM [facility] Stop: 02/28/24 19:59 Last Admin: 01/29/24 21:44 Dose: 500 mg Documented By: LELA Simvastatin (Simvastatin 20 Mg Tab) 20 mg PO QPM [facility] Stop: 02/28/24 20:59 Last Admin: 01/29/24 21:44 Dose: 20 mg Documented By: LELA Tamsulosin HCl (Tamsulosin Hcl 0.4 Mg Cap) 0.4 mg PO HS [facility] Stop: 02/28/24 20:59 Last Admin: 01/29/24 21:44 Dose: 0.4 mg Documented By: LELA Imaging Data Radiologist's Impression: Chest X-Ray 01/29/24 16:32 XR chest 1V portable HISTORY: shortness of breath COMPARISON: Chest 03/05/2023. FINDINGS: No pneumothorax. No pleural effusions. Left basilar linear densities consistent with subsegmental atelectasis or scarring. This is similar to the prior study. No new focal lung consolidations to suggest a pneumonia. No evidence for pulmonary edema. The heart is normal in size. No acute fractures. IMPRESSION: No significant change compared to the prior study. No acute process. ACT 112: Negative or not required by law. Electronically signed by: Conner Ballard M.D. 01/29/2024 5:09 PM Discharge Plan Visit Data Chief Complaint: Infection, Wound Stated Complaint: INFECTION ED Provider: Nikkie Baker Discharge Problem: Leg wound, right, 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 Patient Disposition: Admitted As Inpatient Discharge Instructions Interventions: ED Discharge Assessment Last Done: 01/29/24 19:19
--- NOTE | 2024-01-29 16:19 | History & Physical Report ---
Date of Service January 29, 2024 Assessment & Plan (1) Leg wound, right: Plan: No clear cellulitis other than just erythema from swelling. Consider US venous doppler once skin appears improved although notably this was performed in October and negative at that time IF CRP and procalc (2) 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: Plan: Consult wound care nurse (3) Benign localized hyperplasia of prostate with urinary obstruction: Plan: Urine retention noted in the ER with bladder scan > 500ml. Patient not able to stand at the present time to help Start tamsulosin Trial without catheter once more ambulatory (4) Edema of both lower extremities due to peripheral venous insufficiency: Plan: Suspected due to venous insufficiency. TTE in 2021 with normal EF and no valvular abnormalities. No significant proteinuria. BNP ordered. Edema longstanding but worse than usual likely due to urine retention and fluid retention from this which should improve with gee catheter alone. (5) Failure to thrive in adult: Plan: Reportedly feces found on floor of home PT/OT, case management to assess safety on returning home Plan VTE Prophylaxis - Lovenox 40mg SQ BID Diet - Low Na Diposisiton - admit to med/surg Admission and Anticipated Discharge Date Admission Date: January 29, 2024 History of Present Illness Chief Complaint: Right leg wound Primary Care Provider: Harlan Osorio MD Alton Arenas is a 74 year old male who presents to the ER due to maggots on wound on right leg. He reports right leg cellulitis for the last 2 weeks which has been managed by his PCP with telehealth visits. doxycycline and cephalexin were started on 01/14 for 10 days. He reports the erythema and smell of discharge has been improving. Due to ongoing symptoms though he was restarted on a second course of cephalexin on 01/23 for 7 days which he remains on. He reports compliance from his medications. He is unsure regarding weight gain but thinks the swelling in both his legs is worse than usual. His daughter reports significant decline in his ability to move around, at baseline he can stand to pivot and take a few steps but now cannot stand up. Home health was arranged by his PCP and visited him today findings maggots in his wound, feces on the ground and henry and called EMS to bring him to hospital. He denies any respiratory or urinary problems. Allergies Allergy/AdvReac Type Severity Reaction Status Date / Time sulfamethoxazole Allergy Mild itching Verified 01/29/24 16:11 [From Bactrim] trimethoprim [From Bactrim] Allergy Mild itching Verified 01/29/24 16:11 cheese Allergy Unknown SICK TO Verified 01/29/24 16:11 STOMACH Penicillins Allergy Unknown RASH Verified 01/29/24 16:11 Home Medications Medication Instructions Recorded Confirmed Type diphenhydramine HCl 25 mg tablet 25 mg PO HS 05/23/23 01/29/24 History (Benadryl Allergy) hydroxyzine HCl 25 mg tablet 25 mg PO AMHS #30 tabs 08/07/23 01/29/24 Rx metformin 500 mg tablet 500 mg PO BID #180 tabs 11/28/23 01/29/24 Rx simvastatin 20 mg tablet 20 mg PO QPM #90 tabs 11/28/23 01/29/24 Rx furosemide 20 mg tablet 20 mg PO QAM #90 tabs 12/18/23 01/29/24 Rx Saccharomyces boulardii 250 mg 250 mg PO BID #20 caps 01/15/24 01/29/24 Rx capsule (Florastor) cephalexin 500 mg capsule 500 mg PO TID #21 caps 01/24/24 01/29/24 Rx Past Med/Surg History Problem List (Updated 01/30/24 @ 05:38 by Syd Cruz MD) Failure to thrive in adult Edema of both lower extremities due to peripheral venous insufficiency 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 (Acute) Leg wound, right (Acute) Leg wound, right COPD (chronic obstructive pulmonary disease) Hematuria Impaired gait and mobility Immobility History of sepsis Morbid obesity with BMI of 40.0-44.9, adult DVT prophylaxis DMII (diabetes mellitus, type 2) Lower extremity cellulitis Hypomagnesemia (Acute) Depression Pruritic dermatitis Hypomagnesemia HARDIN (dyspnea on exertion) Gait abnormality Vitamin D deficiency Edema Asthma HTN (hypertension) (Acute) Prediabetes (Chronic) Benign localized hyperplasia of prostate with urinary obstruction (Chronic) Dyslipidemia (Chronic) GERD (gastroesophageal reflux disease) (Chronic) Medical History Acute exacerbation of chronic obstructive pulmonary disease Clinical sepsis Cellulitis of both lower extremities Seizure-like activity Bacteremia Acute hypoxemic respiratory failure Pneumonia Pneumonia Influenza Diverticulosis Sleep apnea Surgical History S/P tonsillectomy and adenoidectomy History of throat surgery S/P partial colectomy H/O oral surgery H/O inguinal hernia repair Family History Other Adopted Family history unknown Denies family history of Ovarian cancer Prostate cancer Myocardial infarction Breast cancer Colorectal cancer Social History Smoking Status: Former smoker Tobacco Type: Cigarettes Age Started Using Tobacco: 15; Age Quit Using Tobacco: 47; packs per day: 2; Smoking End Date: 1996; Second Hand Exposure: No; Do You Dip or Chew Tobacco: No; Hx Alcohol Use: No Hx Substance Use: No Preferred Language: Lithuanian Communication Ability: Effective Visual Impairment: No Limitations Hearing Ability: Normal Quality Facilitator Required: No Beliefs That Will Affect Care: None marital status: Current Living Situation: Family current occupational status: retired 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 Other Information That Helps Us Care for You: No Feels Safe at Home: Yes Safety Concerns: Feels Safe At This Time Childhood Exposure to Second-Hand Smoke: Yes Diet: regular during the past year weight has: remained stable Dental Care, Regularly: No Physical Activity Frequency: Does not Exercise Seatbelt Use: always Sunscreen Use: No Assistive Devices: None Review of Systems 2 Review of Systems: All systems reviewed & are unremarkable except as noted in HPI & below Physical Exam 2 Constitutional: well developed; + not well nourished and no acute distress Eyes: PERRL, conjunctivae normal, anicteric sclerae ENMT: external ear and nose normal, oropharynx normal Respiratory: normal respiratory effort, lungs clear to auscultation Cardiovascular: Rate/Rhythm: regular rate and regular rhythm Heart Sounds: no murmur Extremities: normal capillary refill (b/l toes), + calf tenderness (bilateral) and + pedal edema (2+ bilateral, right calf > left calf circumference) Gastrointestinal (Abdomen): normal bowel sounds, soft, nontender, no hepatosplenomegaly Skin: Neurologic: moves all extremities and awake; not confused No sensation in bilateral feet (chronically) Psychiatric: A+Ox3, euthymic affect Results & Data Results & Data Vital Signs (Past 12 Hours) Vital Signs Temp Pulse Pulse Resp BP BP Pulse Ox 01/29/24 15:33 92 H 17 107/72 97 01/29/24 14:46 88 01/29/24 13:40 36.6 C 83 19 152/79 H 94 O2 Del Method 01/29/24 15:33 Room Air 01/29/24 14:46 01/29/24 13:40 Room Air Laboratory Results Abnormal lab results 01/29/24 Range/Units 13:52 RDW Std Deviation 48.8 H (36.4-46.3) fL RDW Coeff of Jocelyn 14.8 H (11.5-14.5) % MPV 9.0 L (9.4-12.4) fL [place] # (Auto) 0.85 H (0.11-0.59) K/uL Glucose 131 H (70-99(Fasting)) mg/dl Diagnostic Findings None Medications Administered ER Medications Given: None Code Status & VTE Plan Code Status Full VTE Prophylaxis Plan VTE Prophylaxis will be ordered: Yes PG Care Time/CCT Total # of Minutes Spent Total Time Spent with Patient: Total time spent is greater than 50% in coordination of care (as documented) at patient's floor/unit and/or counseling patient: Coding Level of Care Code 81634 INT INP/OBS CARE 3/75MIN Diagnoses Leg wound, right S81.801A 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 B87.9 Benign localized hyperplasia of prostate with urinary obstruction N40.1; N13.8 Edema of both lower extremities due to peripheral venous insufficiency I87.2 Failure to thrive in adult R62.7
[2024-01-29 16:53] LABS: C Reactive Protein 1.35 mg/dl (0-0.5)
--- NOTE | 2024-01-29 17:10 | XRay Report ---
XR chest 1V portable HISTORY: shortness of breath COMPARISON: Chest 03/05/2023. FINDINGS: No pneumothorax. No pleural effusions. Left basilar linear densities consistent with subseg mental atelectasis or scarring. This is similar to the prior study. No new focal lung consolidations to suggest a pneumonia. No evidence for pulmonary edema. The heart is normal in size. No acute fractu res. IMPRESSION: No significant change compared to the prior study. No acute process. ACT 112: Negative or not required by law. Electronically signed by: Conner Ballard M.D. 01/29/2024 5:09 PM
[2024-01-29 18:47] LABS: Appearance Urine Clear (Clear); Bacteria Urine Automated None Seen (None Seen); Bilirubin Urine Negative (Negative); Blood Urine 2+ (Negative); Cast Urine Automated 0-2 /lpf (0-2); Color Urine Yellow; Epithelial Cell Urine Auto 0-2 /hpf (0-2); Glucose Urine UA Negative (Negative); Ketones Urine Negative (Negative); Leukocyte Esterase Urine Negative (Negative); Nitrite Urine Negative (Negative); Protein Urine Negative (Negative); RBC Urine Automated 0-2 /hpf (0-2); Specific Gravity Urine 1.011 (1.000-1.030); Urobilinogen Urine Negative (Negative); WBC Urine Automated 0-5 /hpf (0-5)
[2024-01-29] MEDS ORDERED: ACETAMINOPHEN 325 MG TAB PO PRN (20:24)
[2024-01-29] MEDS: cephALEXin 500 MG CAP PO SCH (21:43)
[2024-01-29] MEDS: hydrOXYzine HCl 25 MG TAB PO SCH (21:43)
[2024-01-29] MEDS: TAMSULOSIN HCL 0.4 MG CAP PO SCH (21:44)
[2024-01-29] MEDS: metFORMIN HCL 500 MG TAB PO SCH (21:44)
[2024-01-29] MEDS: DOXYCYCLINE HYCLATE 100 MG CAP PO SCH (21:44)
[2024-01-29] MEDS: SIMVASTATIN 20 MG TAB PO SCH (21:44)
[2024-01-29] MEDS: diphenhydrAMINE Capsule 25 MG CAP PO SCH (21:44)
[2024-01-30 06:13] LABS: Basophils # (auto) 0.07 K/uL (0.00-0.20); Basophils % (auto) 0.7 %; Eosinophils # (auto) 0.29 K/uL (0.00-0.50); Eosinophils % (auto) 2.9 %; Hematocrit (blood only) 40.4 % (42.0-52.0); Immature Granulocytes # (auto) 0.03 K/uL (0.01-0.20); Immature Granulocytes % (auto) 0.3 %; Lymphocytes # (auto) 1.99 K/uL (1.20-3.40); Lymphocytes % (auto) 19.9 %; Mean Corpuscular Hemoglobin 28.4 pg (25.0-34.0); Mean Corpuscular Hgb Conc 32.2 g/dL (32.0-36.0); Mean Corpuscular Volume 88.4 fL (80.0-100.0); Monocytes # (auto) 1.09 K/uL (0.11-0.59); Monocytes % (auto) 10.9 %; Neutrophils # (auto) 6.54 K/uL (1.40-6.50); Neutrophils % (auto) 65.3 %; Platelet Count 203 K/uL (130-400); RDW Coefficient of Variation 14.5 % (11.5-14.5); RDW Standard Deviation 46.9 fL (36.4-46.3); Red Blood Count 4.57 M/uL (4.70-6.10); White Blood Count 10.01 K/ul (4.8-10.8)
[2024-01-30 06:24] LABS: Albumin Globulin Ratio 1.2 (0.9-2); Albumin Level 3.6 gm/dl (3.4-5.0); BUN Creatinine Ratio 18.2 (10-20); Bilirubin,Total 1.1 mg/dl (0.2-1.0); Calcium 8.6 mg/dl (8.6-10.3); Creatinine Clr Calc Pharmacy 105.4 ml/min; Est GFR (African American) 97.4 ml/min; Globulin 2.9 gm/dl (2.5-4.0); Magnesium 1.7 mg/dl (1.7-2.4); Potassium 3.8 mmol/L (3.5-5.1); Total Protein 6.5 gm/dl (6.0-8.3)
[2024-01-30] MEDS ORDERED: DEXTROSE 50% 50 ML SYRINGE IV PRN (08:08)
[2024-01-30] MEDS ORDERED: GLUCOSE 10 TAB/TUBE PO PRN (08:08)
[2024-01-30] MEDS ORDERED: CARBOHYDRATES FOR HYPOGLYCEMIA PO PRN (08:08)
[2024-01-30] MEDS ORDERED: GLUCOSE 40% GEL 15 GM TUBE PO PRN (08:08)
[2024-01-30] MEDS ORDERED: GLUCAGON FOR INJ 1 MG VIAL SQ PRN (08:08)
[2024-01-30] MEDS: FUROSEMIDE 20 MG TAB PO SCH (08:29)
[2024-01-30] MEDS ORDERED: ENOXAPARIN INJ 40 MG/0.4 ML SYR SQ SCH (09:00)
[2024-01-30] MEDS: ENOXAPARIN INJ 40 MG/0.4 ML SYR SQ SCH (09:45)
[2024-01-30] MEDS: INSULIN ASPART PER UNIT CHARGE SC SCH (12:50)
--- NOTE | 2024-01-30 13:10 | Hospitalist Progress Note ---
Date of Service January 30, 2024 Assessment & Plan (1) Leg wound, right: Plan: He appears to have bilateral lower extremity stasis dermatitis. Local care. Wound care nurse has been consulted. Continue oral Keflex and doxycycline IF CRP and procalc (2) 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: Plan: Right lower extremity. Treated on admission (3) Benign localized hyperplasia of prostate with urinary obstruction: Plan: Urine retention noted in the ER with bladder scan > 500ml. He is now on Flomax. Brown catheter in place. Trial of voiding at a later date. (4) Edema of both lower extremities due to peripheral venous insufficiency: Plan: Suspected due to chronic venous insufficiency. TTE in 2021 with normal EF and no valvular abnormalities. No significant proteinuria to suggest nephrotic syndrome (5) Failure to thrive in adult: Plan: Reportedly feces found on floor of home. May need placement. OT and PT assessments requested Plan To be determined Admission and Anticipated Discharge Date Admission Date: January 29, 2024 Subjective Alert and oriented. No distress. Wound care nurse is evaluating the chronic stasis dermatitis involving both lower extremities. Apparently he had maggot infestation on the posterior aspect of the right lower extremity. He appears to have chronic venous stasis and stasis dermatitis involving both lower extremities below the knees. He is now on oral Keflex and doxycycline. OT and PT assessments have been requested. Sliding scale insulin coverage ordered. He has symptoms of BPH with LUTS. He is now on Flomax. Review of Systems 2 Review of Systems: Constitutionalno fever or chills ENTno blurred vision, no double vision, no epistaxis, no sore throat Respiratoryno cough, no wheezing, no shortness of breath Cardiacno palpitations, no chest pain, no syncope Jose J nausea, vomiting, diarrhea, melena, hematochezia GUno urinary retention, no urinary incontinence, no dysuria, no hematuria Musculoskeletalchronic bilateral lower extremity edema and stasis dermatitis Skinchronic bilateral lower extremity stasis dermatitis and edema Neurogeneralized weakness. No focal deficits Psychno depression, no anxiety Physical Exam 2 Physical Exam: General-alert and oriented x3, no fever, no chills. Morbidly obese HEENT-head atraumatic and normocephalic, pupils equal and reactive to light, extraocular muscles intact Neck-no lymphadenopathy or thyromegaly, trachea midline Chest-clear to auscultation. No rales, wheezing or rhonchi Cardiac-regular rate and rhythm, normal S1 and S2 Abdomen-normal bowel sounds, no hepatosplenomegaly Extremities-chronic appearing edema bilateral lower extremities below the knees with chronic appearing stasis dermatitis bilaterally Neuro--cranial nerves II through XII intact, motor and sensory function within normal limits, strength symmetrical with generalized weakness, no focal deficits Psych-normal affect, normal mood Results & Data Results & Data Vital Signs (Past 12 Hours) Vital Signs Temp Pulse Resp BP Pulse Ox O2 Del Method 01/30/24 07:36 36.6 C 94 H 18 116/71 94 Room Air Laboratory Results 01/30/24 05:41 01/30/24 05:41 PG Care Time/CCT Total # of Minutes Spent Total Time Spent with Patient: Total time spent is greater than 50% in coordination of care (as documented) at patient's floor/unit and/or counseling patient: Coding Level of Care Code 40302 SUB INP/OBS CARE 3/50MIN Diagnoses Leg wound, right S81.801A 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 B87.9 Benign localized hyperplasia of prostate with urinary obstruction N40.1; N13.8 Edema of both lower extremities due to peripheral venous insufficiency I87.2 Failure to thrive in adult R62.7
[2024-01-31 06:06] LABS: Basophils # (auto) 0.03 K/uL (0.00-0.20); Basophils % (auto) 0.4 %; Eosinophils # (auto) 0.31 K/uL (0.00-0.50); Eosinophils % (auto) 4.1 %; Hemoglobin 12.4 g/dl (14.0-18.0); Immature Granulocytes # (auto) 0.01 K/uL (0.01-0.20); Immature Granulocytes % (auto) 0.1 %; Lymphocytes # (auto) 2.04 K/uL (1.20-3.40); Lymphocytes % (auto) 26.8 %; Mean Corpuscular Hemoglobin 28.6 pg (25.0-34.0); Mean Corpuscular Hgb Conc 32.6 g/dL (32.0-36.0); Mean Corpuscular Volume 87.8 fL (80.0-100.0); Mean Platelet Volume 9.2 fL (9.4-12.4); Monocytes # (auto) 0.97 K/uL (0.11-0.59); Monocytes % (auto) 12.8 %; Neutrophils # (auto) 4.24 K/uL (1.40-6.50); Neutrophils % (auto) 55.8 %; Platelet Count 189 K/uL (130-400); RDW Coefficient of Variation 14.4 % (11.5-14.5); RDW Standard Deviation 46.3 fL (36.4-46.3); Red Blood Count 4.33 M/uL (4.70-6.10)
[2024-01-31 06:29] LABS: Calcium 8.4 mg/dl (8.6-10.3); Potassium 3.5 mmol/L (3.5-5.1)
[2024-01-31 06:35] LABS: BUN Creatinine Ratio 17.3 (10-20); Creatinine Clr Calc Pharmacy 89.2 ml/min; Est GFR (Non-African American) 69.9 ml/min
--- NOTE | 2024-01-31 13:06 | Urology Consultation ---
Date of Consultation January 31, 2024 Assessment & Plan (1) Urinary retention: Plan 74 yo/M admitted with right leg wound cellulitis and maggot infestation. On arrival he was found to be in urinary retention and a Brown catheter was placed. Urology consulted for urinary retention Urinary retention currently managed with a Brown catheter. Brown catheter draining appropriatelyurine is clear yellow. Urinary retention possibly due to underlying BPH, deconditioning, or other. Depending on clinical course, can do a void trial prior to discharge or we can arrange as an outpatient if needed. Continue tamsulosin. Continue supportive care and management per primary team. Urology will sign off. Please call with any further questions, concerns, or changes in patient status. History of Present Illness Attending Physician: Sterling Ha MD History of Present Illness 74-year-old male admitted with right leg wound cellulitis and maggot infe station. On arrival he was found to be in urinary retention with a bladder scan >500ml. A Brown catheter was placed. He was started on Flomax. Urology has been consulted for urinary retention. Chart reviewed: He is afebrile with stable vitals. Labs today show no leukocytosis and normal renal function. Urinalysis on admission with 2+ blood, 02 RBC otherwise negative Patient seen at bedside today. Awake, resting bed on arrival. No acute distress. Brown intact and draining clear yellow urine. Patient denies prior history. He does not follow with a urologist. Denies history of urinary retention. He denies bothersome urinary symptoms or issues at baseline. He does report a history of BPH. Allergies Allergy/AdvReac Type Severity Reaction Status Date / Time sulfamethoxazole Allergy Mild itching Verified 01/29/24 16:11 [From Bactrim] trimethoprim [From Bactrim] Allergy Mild itching Verified 01/29/24 16:11 cheese Allergy Unknown SICK TO Verified 01/29/24 16:11 STOMACH Penicillins Allergy Unknown RASH Verified 01/29/24 16:11 Home Medications Medication Instructions Recorded Confirmed Type diphenhydramine HCl 25 mg tablet 25 mg PO HS 05/23/23 01/29/24 History (Benadryl Allergy) hydroxyzine HCl 25 mg tablet 25 mg PO AMHS #30 tabs 08/07/23 01/29/24 Rx metformin 500 mg tablet 500 mg PO BID #180 tabs 11/28/23 01/29/24 Rx simvastatin 20 mg tablet 20 mg PO QPM #90 tabs 11/28/23 01/29/24 Rx furosemide 20 mg tablet 20 mg PO QAM #90 tabs 12/18/23 01/29/24 Rx Saccharomyces boulardii 250 mg 250 mg PO BID #20 caps 01/15/24 01/29/24 Rx capsule (Florastor) cephalexin 500 mg capsule 500 mg PO TID #21 caps 01/24/24 01/29/24 Rx Patient History Medical History Acute exacerbation of chronic obstructive pulmonary disease Clinical sepsis Cellulitis of both lower extremities Seizure-like activity Bacteremia Acute hypoxemic respiratory failure Pneumonia Pneumonia Influenza Diverticulosis Sleep apnea Surgical History S/P tonsillectomy and adenoidectomy History of throat surgery S/P partial colectomy H/O oral surgery H/O inguinal hernia repair Family History Other Adopted Family history unknown Denies family history of Ovarian cancer Prostate cancer Myocardial infarction Breast cancer Colorectal cancer Social History Smoking Status: Former smoker Tobacco Type: Cigarettes Age Started Using Tobacco: 15; Age Quit Using Tobacco: 47; packs per day: 2; Smoking End Date: 1996; Second Hand Exposure: No; Do You Dip or Chew Tobacco: No; Hx Alcohol Use: No Hx Substance Use: No Preferred Language: Luxembourgish Communication Ability: Effective Visual Impairment: No Limitations Hearing Ability: Normal Crew Director Required: No Beliefs That Will Affect Care: None marital status: Current Living Situation: Family current occupational status: retired 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 Other Information That Helps Us Care for You: No Feels Safe at Home: Yes Safety Concerns: Feels Safe At This Time Childhood Exposure to Second-Hand Smoke: Yes Diet: regular during the past year weight has: remained stable Dental Care, Regularly: No Physical Activity Frequency: Does not Exercise Seatbelt Use: always Sunscreen Use: No Assistive Devices: Bedside Commode, Cane, Walker and Wheelchair Review of Systems Review of Systems: All systems reviewed & are unremarkable except as noted in HPI & below Physical Exam Constitutional: no acute distress Respiratory: no respiratory distress and no labored breathing Musculoskeletal: Head/Neck/Chest: normocephalic Neurologic: awake Psychiatric: A+Ox3, euthymic affect Genitourinary: Brown intact Results & Data Vital Signs (Past 12 Hours) Vital Signs Temp Pulse Resp BP Pulse Ox O2 Del Method 01/31/24 08:05 36.8 C 86 16 110/63 95 Room Air 01/31/24 06:32 36.7 C 90 16 112/69 95 Room Air PG Care Time/CCT Total # of Minutes Spent Total Time Spent with Patient: Total time spent is greater than 50% in coordination of care (as documented) at patient's floor/unit and/or counseling patient: Coding Level of Care Code 57698 INT INP/OBS CARE 2/55MIN Diagnoses Urinary retention R33.9
--- NOTE | 2024-01-31 14:42 | Hospitalist Progress Note ---
Date of Service January 31, 2024 Assessment & Plan (1) Leg wound, right: Plan: He appears to have bilateral lower extremity stasis dermatitis. Local care. Wound care nurse has been consulted. Continue oral Keflex and doxycycline (2) 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: Plan: Right lower extremity. Treated on admission. Resolved (3) Benign localized hyperplasia of prostate with urinary obstruction: Plan: Urine retention noted in the ER with bladder scan > 500ml. He is now on Flomax. Brown catheter in place. Trial of voiding at a later date. Urology consultation requested (4) Edema of both lower extremities due to peripheral venous insufficiency: Plan: Suspected due to chronic venous insufficiency. TTE in 2021 with normal EF and no valvular abnormalities. No significant proteinuria to suggest nephrotic syndrome (5) Failure to thrive in adult: Plan: Reportedly feces found on floor of home. Case management is pursuing placement at [facility]. OT and PT while hospitalized Plan [facility]ful discharge to [facility] early next week Admission and Anticipated Discharge Date Admission Date: January 29, 2024 Subjective Alert and oriented. No distress. Case management pursuing placement. [facility] has been ruled out for insurance coverage reasons. Center care is still pending. Office of aging is involved. Urology consultation requested since he had urinary retention on admission requiring Brown catheter placement. Glucose 126 this morning, September 30 Review of Systems 2 Review of Systems: Constitutionalno fever or chills ENTno blurred vision, no double vision, no epistaxis, no sore throat Respiratoryno cough, no wheezing, no shortness of breath Cardiacno palpitations, no chest pain, no syncope Jose J nausea, vomiting, diarrhea, melena, hematochezia GUno urinary retention, no urinary incontinence, no dysuria, no hematuria Musculoskeletalchronic bilateral lower extremity edema and stasis dermatitis Skinchronic bilateral lower extremity stasis dermatitis and edema Neurogeneralized weakness. No focal deficits Psychno depression, no anxiety Physical Exam 2 Physical Exam: General-alert and oriented x3, no fever, no chills. Morbidly obese HEENT-head atraumatic and normocephalic, pupils equal and reactive to light, extraocular muscles intact Neck-no lymphadenopathy or thyromegaly, trachea midline Chest-clear to auscultation. No rales, wheezing or rhonchi Cardiac-regular rate and rhythm, normal S1 and S2 Abdomen-normal bowel sounds, no hepatosplenomegaly Extremities-chronic appearing edema bilateral lower extremities below the knees with chronic appearing stasis dermatitis bilaterally Neuro--cranial nerves II through XII intact, motor and sensory function within normal limits, strength symmetrical with generalized weakness, no focal deficits Psych-normal affect, normal mood Results & Data Results & Data Vital Signs (Past 12 Hours) Vital Signs Temp Pulse Resp BP Pulse Ox O2 Del Method 01/31/24 13:47 36.7 C 103 H 19 121/67 92 Room Air 01/31/24 08:05 36.8 C 86 16 110/63 95 Room Air 01/31/24 06:32 36.7 C 90 16 112/69 95 Room Air Laboratory Results 01/31/24 05:40 01/31/24 05:40 PG Care Time/CCT Total # of Minutes Spent Total Time Spent with Patient: Total time spent is greater than 50% in coordination of care (as documented) at patient's floor/unit and/or counseling patient: Coding Level of Care Code 53351 SUB INP/OBS CARE 3/50MIN Diagnoses Leg wound, right S81.801A 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 B87.9 Benign localized hyperplasia of prostate with urinary obstruction N40.1; N13.8 Edema of both lower extremities due to peripheral venous insufficiency I87.2 Failure to thrive in adult R62.7
[2024-02-01 07:04] LABS: Basophils # (auto) 0.04 K/uL (0.00-0.20); Basophils % (auto) 0.5 %; Eosinophils # (auto) 0.45 K/uL (0.00-0.50); Hemoglobin 12.2 g/dl (14.0-18.0); Immature Granulocytes # (auto) 0.03 K/uL (0.01-0.20); Immature Granulocytes % (auto) 0.4 %; Lymphocytes # (auto) 1.92 K/uL (1.20-3.40); Lymphocytes % (auto) 25.7 %; Mean Corpuscular Hemoglobin 28.8 pg (25.0-34.0); Mean Corpuscular Hgb Conc 32.1 g/dL (32.0-36.0); Mean Corpuscular Volume 89.6 fL (80.0-100.0); Mean Platelet Volume 9.1 fL (9.4-12.4); Monocytes # (auto) 0.92 K/uL (0.11-0.59); Monocytes % (auto) 12.3 %; Neutrophils # (auto) 4.12 K/uL (1.40-6.50); Neutrophils % (auto) 55.1 %; Platelet Count 179 K/uL (130-400); RDW Coefficient of Variation 14.5 % (11.5-14.5); RDW Standard Deviation 47.3 fL (36.4-46.3); Red Blood Count 4.24 M/uL (4.70-6.10); White Blood Count 7.48 K/ul (4.8-10.8)
[2024-02-01 07:36] LABS: BUN Creatinine Ratio 20.4 (10-20); Calcium 8.4 mg/dl (8.6-10.3); Est GFR (Non-African American) 70.7 ml/min; Potassium 3.7 mmol/L (3.5-5.1)
--- NOTE | 2024-02-01 12:29 | Hospitalist Progress Note ---
Date of Service February 01, 2024 Assessment & Plan (1) Leg wound, right: Plan: He appears to have bilateral lower extremity stasis dermatitis. Local care. Wound care nurse has been consulted. Continue oral Keflex and doxycycline (2) 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: Plan: Right lower extremity. Treated on admission. Resolved (3) Benign localized hyperplasia of prostate with urinary obstruction: Plan: Urine retention noted in the ER with bladder scan > 500ml. He is now on Flomax. Brown catheter in place. Trial of voiding at a later date. Urology consultation appreciated. (4) Edema of both lower extremities due to peripheral venous insufficiency: Plan: Suspected due to chronic venous insufficiency. TTE in 2021 with normal EF and no valvular abnormalities. No significant proteinuria to suggest nephrotic syndrome (5) Failure to thrive in adult: Plan: Reportedly feces found on floor of home. Case management is pursuing placement at [facility]. OT and PT while hospitalized Plan Hopeful discharge to [facility] on February 02 Admission and Anticipated Discharge Date Admission Date: January 29, 2024 Subjective Alert and oriented. Vital signs are stable. No fever. Both legs are heavily wrapped below the knees. No new problems. Awaiting discharge to [facility] on Saturday Review of Systems 2 Review of Systems: Constitutionalno fever or chills ENTno blurred vision, no double vision, no epistaxis, no sore throat Respiratoryno cough, no wheezing, no shortness of breath Cardiacno palpitations, no chest pain, no syncope Jose J nausea, vomiting, diarrhea, melena, hematochezia GUno urinary retention, no urinary incontinence, no dysuria, no hematuria Musculoskeletalchronic bilateral lower extremity edema and stasis dermatitis Skinchronic bilateral lower extremity stasis dermatitis and edema Neurogeneralized weakness. No focal deficits Psychno depression, no anxiety Physical Exam 2 Physical Exam: General-alert and oriented x3, no fever, no chills. Morbidly obese HEENT-head atraumatic and normocephalic, pupils equal and reactive to light, extraocular muscles intact Neck-no lymphadenopathy or thyromegaly, trachea midline Chest-clear to auscultation. No rales, wheezing or rhonchi Cardiac-regular rate and rhythm, normal S1 and S2 Abdomen-normal bowel sounds, no hepatosplenomegaly Extremities-chronic appearing edema bilateral lower extremities below the knees with chronic appearing stasis dermatitis bilaterally Neuro--cranial nerves II through XII intact, motor and sensory function within normal limits, strength symmetrical with generalized weakness, no focal deficits Psych-normal affect, normal mood Results & Data Results & Data Vital Signs (Past 12 Hours) Vital Signs Temp Pulse Resp BP Pulse Ox O2 Del Method 02/01/24 08:20 36.9 C 93 H 16 118/67 93 Room Air Laboratory Results 02/01/24 06:46 02/01/24 06:46 PG Care Time/CCT Total # of Minutes Spent Total Time Spent with Patient: Total time spent is greater than 50% in coordination of care (as documented) at patient's floor/unit and/or counseling patient: Coding Level of Care Code 41913 SUB INP/OBS CARE 2/35MIN Diagnoses Leg wound, right S81.801A 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 B87.9 Benign localized hyperplasia of prostate with urinary obstruction N40.1; N13.8 Edema of both lower extremities due to peripheral venous insufficiency I87.2 Failure to thrive in adult R62.7
[2024-02-02 07:15] LABS: Basophils # (auto) 0.06 K/uL (0.00-0.20); Basophils % (auto) 0.8 %; Eosinophils # (auto) 0.45 K/uL (0.00-0.50); Eosinophils % (auto) 6.2 %; Hematocrit (blood only) 40.2 % (42.0-52.0); Hemoglobin 12.8 g/dl (14.0-18.0); Immature Granulocytes # (auto) 0.03 K/uL (0.01-0.20); Immature Granulocytes % (auto) 0.4 %; Lymphocytes # (auto) 1.97 K/uL (1.20-3.40); Lymphocytes % (auto) 27.1 %; Mean Corpuscular Hemoglobin 28.8 pg (25.0-34.0); Mean Corpuscular Hgb Conc 31.8 g/dL (32.0-36.0); Mean Corpuscular Volume 90.5 fL (80.0-100.0); Mean Platelet Volume 9.3 fL (9.4-12.4); Monocytes # (auto) 0.99 K/uL (0.11-0.59); Monocytes % (auto) 13.6 %; Neutrophils # (auto) 3.76 K/uL (1.40-6.50); Neutrophils % (auto) 51.9 %; Platelet Count 191 K/uL (130-400); RDW Coefficient of Variation 14.6 % (11.5-14.5); RDW Standard Deviation 47.9 fL (36.4-46.3); Red Blood Count 4.44 M/uL (4.70-6.10); White Blood Count 7.26 K/ul (4.8-10.8)
[2024-02-02 07:40] LABS: BUN Creatinine Ratio 23.2 (10-20); Calcium 8.5 mg/dl (8.6-10.3); Creatinine Clr Calc Pharmacy 93.7 ml/min; Est GFR (Non-African American) 74.2 ml/min; Potassium 3.6 mmol/L (3.5-5.1)
--- NOTE | 2024-02-02 15:04 | Hospitalist Progress Note ---
Date of Service February 02, 2024 Assessment & Plan (1) Leg wound, right: Plan: He appears to have bilateral lower extremity stasis dermatitis. Local care. Wound care nurse has been consulted. Continue oral Keflex and doxycycline for now (2) 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: Plan: Right lower extremity. Treated on admission. Resolved (3) Benign localized hyperplasia of prostate with urinary obstruction: Plan: Urine retention noted in the ER with bladder scan > 500ml. He is now on Flomax. Brown catheter in place. Will remove Brown catheter tomorrowFebruary 02 with a trial of voiding. Urology consultation appreciated. (4) Edema of both lower extremities due to peripheral venous insufficiency: Plan: Suspected due to chronic venous insufficiency. TTE in 2021 with normal EF and no valvular abnormalities. No significant proteinuria to suggest nephrotic syndrome (5) Failure to thrive in adult: Plan: Reportedly feces found on floor of home. Case management is pursuing placement at [facility]. OT and PT while hospitalized Plan Unfortunately, [facility] does not have a bed for the patient. Case management aware. He will remain hospitalized here until placement arrangements are finalized Admission and Anticipated Discharge Date Admission Date: January 29, 2024 Subjective Alert and oriented. Pleasant. No new problems. Unfortunately, there is no bed available at [facility]. Case management is working on placement. He remains on oral Keflex and doxycycline. Will attempt Rbown catheter removal and voiding trial tomorrowFebruary 02 Review of Systems 2 Review of Systems: Constitutionalno fever or chills ENTno blurred vision, no double vision, no epistaxis, no sore throat Respiratoryno cough, no wheezing, no shortness of breath Cardiacno palpitations, no chest pain, no syncope Jose J nausea, vomiting, diarrhea, melena, hematochezia GUurinary retention present on admission Musculoskeletalchronic bilateral lower extremity edema and stasis dermatitis Skinchronic bilateral lower extremity stasis dermatitis and edema Neurogeneralized weakness. No focal deficits Psychno depression, no anxiety Physical Exam 2 Physical Exam: General-alert and oriented x3, no fever, no chills. Morbidly obese HEENT-head atraumatic and normocephalic, pupils equal and reactive to light, extraocular muscles intact Neck-no lymphadenopathy or thyromegaly, trachea midline Chest-clear to auscultation. No rales, wheezing or rhonchi Cardiac-regular rate and rhythm, normal S1 and S2 Abdomen-normal bowel sounds, no hepatosplenomegaly GUFoley catheter in place. No hematuria Extremities-chronic appearing edema bilateral lower extremities below the knees with chronic appearing stasis dermatitis bilaterally Neuro--cranial nerves II through XII intact, motor and sensory function within normal limits, strength symmetrical with generalized weakness, no focal deficits Psych-normal affect, normal mood Results & Data Results & Data Vital Signs (Past 12 Hours) Vital Signs Temp Pulse Resp BP Pulse Ox O2 Del Method 02/02/24 07:30 Room Air 02/02/24 07:14 36.4 C L 77 17 106/65 91 Room Air Laboratory Results 02/02/24 06:02 02/02/24 06:02 PG Care Time/CCT Total # of Minutes Spent Total Time Spent with Patient: Total time spent is greater than 50% in coordination of care (as documented) at patient's floor/unit and/or counseling patient: Coding Level of Care Code 20091 SUB INP/OBS CARE 2/35MIN Diagnoses Leg wound, right S81.801A 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 B87.9 Benign localized hyperplasia of prostate with urinary obstruction N40.1; N13.8 Edema of both lower extremities due to peripheral venous insufficiency I87.2 Failure to thrive in adult R62.7
[2024-02-03 07:07] LABS: Basophils # (auto) 0.05 K/uL (0.00-0.20); Basophils % (auto) 0.6 %; Eosinophils # (auto) 0.45 K/uL (0.00-0.50); Eosinophils % (auto) 5.5 %; Hematocrit (blood only) 38.2 % (42.0-52.0); Hemoglobin 12.6 g/dl (14.0-18.0); Immature Granulocytes # (auto) 0.03 K/uL (0.01-0.20); Immature Granulocytes % (auto) 0.4 %; Lymphocytes # (auto) 2.06 K/uL (1.20-3.40); Lymphocytes % (auto) 25.4 %; Mean Corpuscular Hemoglobin 29.2 pg (25.0-34.0); Mean Corpuscular Volume 88.4 fL (80.0-100.0); Mean Platelet Volume 9.1 fL (9.4-12.4); Monocytes % (auto) 13.5 %; Neutrophils # (auto) 4.43 K/uL (1.40-6.50); Neutrophils % (auto) 54.6 %; Platelet Count 201 K/uL (130-400); RDW Coefficient of Variation 14.5 % (11.5-14.5); RDW Standard Deviation 46.7 fL (36.4-46.3); Red Blood Count 4.32 M/uL (4.70-6.10); White Blood Count 8.12 K/ul (4.8-10.8)
[2024-02-03 07:37] LABS: BUN Creatinine Ratio 26.2 (10-20); Calcium 8.4 mg/dl (8.6-10.3); Est GFR (Non-African American) 70.7 ml/min; Potassium 3.6 mmol/L (3.5-5.1)
[2024-02-03] MEDS: POLYETHYLENE (MIRALAX) 17 GM PACK PO SCH (12:59)
--- NOTE | 2024-02-03 15:35 | Hospitalist Progress Note ---
Date of Service February 03, 2024 Assessment & Plan (1) Leg wound, right: Plan: -He appears to have bilateral lower extremity stasis dermatitis with possible superimposed cellulitis that is improving. -Continue local wound care. Wound care nurse has been consulted. -Continue oral Keflex and doxycycline for now-will reevaluate renewal -PT/OT, OOB with assit -Rehab upon DC (2) 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: Plan: -Right lower extremity. -Treated on admission -Continue to monitor -Completing abx for possible superimposed cellulitis (3) Benign localized hyperplasia of prostate with urinary obstruction: Plan: -Urine retention noted in the ER with bladder scan > 500ml. -He is now on Flomax. -Brown catheter in place: for voiding trial today- will monitor output and post void residuals -Urology consultation appreciated. (4) Edema of both lower extremities due to peripheral venous insufficiency: Plan: -Suspected due to chronic venous insufficiency. -TTE in 2021 with normal EF and no valvular abnormalities. -No significant proteinuria to suggest nephrotic syndrome (5) Failure to thrive in adult: Plan: -Reportedly feces found on floor of home. -Case management is pursuing placement- pending placement. -OT and PT while hospitalized Plan Unfortunately, [facility] does not have a bed for the patient. Case management aware. He will remain hospitalized here until placement arrangements are finalized Admission and Anticipated Discharge Date Admission Date: January 29, 2024 Subjective Patient seen and evaluated bedside Reports lower extremity erythema and swelling continue to improve Working with therapy prior to examination Working on placement to rehab Remains on oral antibiotics For voiding trial today- closely monitor output Review of Systems Review of Systems: As per HPI Physical Exam Physical Exam: General-alert and oriented x3, no fever, no chills. Morbidly obese HEENT-head atraumatic and normocephalic, extraocular muscles intact Neck-no lymphadenopathy or thyromegaly, trachea midline Chest-clear to auscultation. No rales, wheezing or rhonchi Cardiac-regular rate and rhythm, normal S1 and S2 Abdomen-normal bowel sounds, no hepatosplenomegaly GUFoley catheter in place. No hematuria Extremities-chronic appearing edema bilateral lower extremities below the knees with chronic appearing stasis dermatitis bilaterally Neuro--cranial nerves II through XII intact, motor and sensory function within normal limits, strength symmetrical with generalized weakness, no focal deficits Psych-normal affect, normal mood Results & Data Results & Data Vital Signs (Past 12 Hours) Vital Signs Temp Pulse Pulse Resp BP Pulse Ox O2 Del Method 02/03/24 14:43 36.6 C 94 H 18 113/67 92 Room Air 02/03/24 12:47 36.5 C 91 H 16 107/61 92 Room Air 02/03/24 10:13 Room Air 02/03/24 09:38 92 Room Air 02/03/24 07:49 36.5 C 78 16 110/67 88 L Room Air PG Care Time/CCT Total # of Minutes Spent Total Time Spent with Patient: Total time spent is greater than 50% in coordination of care (as documented) at patient's floor/unit and/or counseling patient: Coding Level of Care Code 95136 SUB INP/OBS CARE 2/35MIN Diagnoses Leg wound, right S81.801A 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 B87.9 Benign localized hyperplasia of prostate with urinary obstruction N40.1; N13.8 Edema of both lower extremities due to peripheral venous insufficiency I87.2 Failure to thrive in adult R62.7
[2024-02-03] MEDS: DOCUSATE SODIUM 100 MG CAP PO SCH (20:51)
[2024-02-04 07:43] LABS: Basophils # (auto) 0.06 K/uL (0.00-0.20); Basophils % (auto) 0.8 %; Eosinophils # (auto) 0.46 K/uL (0.00-0.50); Eosinophils % (auto) 5.9 %; Hematocrit (blood only) 37.7 % (42.0-52.0); Hemoglobin 12.2 g/dl (14.0-18.0); Immature Granulocytes # (auto) 0.02 K/uL (0.01-0.20); Immature Granulocytes % (auto) 0.3 %; Lymphocytes # (auto) 1.99 K/uL (1.20-3.40); Lymphocytes % (auto) 25.5 %; Mean Corpuscular Hemoglobin 28.6 pg (25.0-34.0); Mean Corpuscular Hgb Conc 32.4 g/dL (32.0-36.0); Mean Corpuscular Volume 88.3 fL (80.0-100.0); Mean Platelet Volume 9.4 fL (9.4-12.4); Monocytes # (auto) 1.05 K/uL (0.11-0.59); Monocytes % (auto) 13.4 %; Neutrophils # (auto) 4.23 K/uL (1.40-6.50); Neutrophils % (auto) 54.1 %; Platelet Count 211 K/uL (130-400); RDW Coefficient of Variation 14.6 % (11.5-14.5); RDW Standard Deviation 46.8 fL (36.4-46.3); Red Blood Count 4.27 M/uL (4.70-6.10); White Blood Count 7.81 K/ul (4.8-10.8)
[2024-02-04 07:45] LABS: Calcium 8.5 mg/dl (8.6-10.3); Potassium 3.7 mmol/L (3.5-5.1)
[2024-02-04 07:50] LABS: BUN Creatinine Ratio 29.3 (10-20); Creatinine Clr Calc Pharmacy 100.8 ml/min; Est GFR (Non-African American) 81.1 ml/min
--- NOTE | 2024-02-04 15:18 | Hospitalist Progress Note ---
Date of Service February 04, 2024 Assessment & Plan (1) Leg wound, right: Plan: -He appears to have bilateral lower extremity stasis dermatitis with possible superimposed cellulitis that is improving. -Continue local wound care. Wound care nurse has been consulted. -Completed oral Keflex and doxycycline for now -PT/OT, OOB with assist -Rehab upon DC (2) 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: Plan: -Right lower extremity. -Treated on admission -Continue to monitor -Completed abx for possible superimposed cellulitis (3) Benign localized hyperplasia of prostate with urinary obstruction: Plan: -Urine retention noted in the ER with bladder scan > 500ml. -He is now on Flomax. -Brown catheter was placed in the ER -Passed voiding trial on 02/02- PVR's without retention -Urology consultation appreciated. (4) Edema of both lower extremities due to peripheral venous insufficiency: Plan: -Suspected due to chronic venous insufficiency. -TTE in 2021 with normal EF and no valvular abnormalities. -No significant proteinuria to suggest nephrotic syndrome (5) Failure to thrive in adult: Plan: -Reportedly feces found on floor of home. -Case management is pursuing placement- pending placement. -OT and PT while hospitalized Plan Pending placement to rehab- referrals have been sent Admission and Anticipated Discharge Date Admission Date: January 29, 2024 Subjective Patient seen and evaluated bedside Patient is currently in NAD Passed voiding trial on 02/02 in to 02/03 Denies acute complaints this AM Completed abx- monitoring off of abx for now Pending placement Review of Systems Review of Systems: As indicated in HPI Physical Exam Physical Exam: General-alert and oriented x3, no fever, no chills. Morbidly obese HEENT-head atraumatic and normocephalic, extraocular muscles intact Neck-no lymphadenopathy or thyromegaly, trachea midline Chest-clear to auscultation. No rales, wheezing or rhonchi Cardiac-regular rate and rhythm, normal S1 and S2 Abdomen-normal bowel sounds, no hepatosplenomegaly GUFoley catheter in place. No hematuria Extremities-chronic appearing edema bilateral lower extremities below the knees with chronic appearing stasis dermatitis bilaterally Neuro--cranial nerves II through XII intact, motor and sensory function within normal limits, strength symmetrical with generalized weakness, no focal deficits Psych-normal affect, normal mood Results & Data Results & Data Vital Signs (Past 12 Hours) Vital Signs Temp Pulse Resp BP Pulse Ox O2 Del Method 02/04/24 14:34 36.7 C 87 20 116/67 93 Room Air 02/04/24 08:00 Room Air 02/04/24 06:58 36.6 C 85 20 143/68 H 92 Room Air PG Care Time/CCT Total # of Minutes Spent Total Time Spent with Patient: Total time spent is greater than 50% in coordination of care (as documented) at patient's floor/unit and/or counseling patient: Coding Level of Care Code 84871 SUB INP/OBS CARE 2/35MIN Diagnoses Leg wound, right S81.801A 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 B87.9 Benign localized hyperplasia of prostate with urinary obstruction N40.1; N13.8 Edema of both lower extremities due to peripheral venous insufficiency I87.2 Failure to thrive in adult R62.7
[2024-02-05 06:32] LABS: Basophils # (auto) 0.06 K/uL (0.00-0.20); Basophils % (auto) 0.8 %; Eosinophils # (auto) 0.45 K/uL (0.00-0.50); Eosinophils % (auto) 5.7 %; Hematocrit (blood only) 38.3 % (42.0-52.0); Hemoglobin 12.5 g/dl (14.0-18.0); Immature Granulocytes # (auto) 0.03 K/uL (0.01-0.20); Immature Granulocytes % (auto) 0.4 %; Lymphocytes # (auto) 2.03 K/uL (1.20-3.40); Lymphocytes % (auto) 25.5 %; Mean Corpuscular Hemoglobin 28.9 pg (25.0-34.0); Mean Corpuscular Hgb Conc 32.6 g/dL (32.0-36.0); Mean Corpuscular Volume 88.7 fL (80.0-100.0); Mean Platelet Volume 9.3 fL (9.4-12.4); Monocytes # (auto) 0.91 K/uL (0.11-0.59); Monocytes % (auto) 11.4 %; Neutrophils # (auto) 4.47 K/uL (1.40-6.50); Neutrophils % (auto) 56.2 %; Platelet Count 202 K/uL (130-400); RDW Coefficient of Variation 14.5 % (11.5-14.5); RDW Standard Deviation 46.8 fL (36.4-46.3); Red Blood Count 4.32 M/uL (4.70-6.10); White Blood Count 7.95 K/ul (4.8-10.8)
[2024-02-05 07:05] LABS: BUN Creatinine Ratio 24.5 (10-20); Calcium 8.6 mg/dl (8.6-10.3); Creatinine Clr Calc Pharmacy 87.5 ml/min; Est GFR (African American) 79.2 ml/min; Est GFR (Non-African American) 68.3 ml/min; Potassium 3.8 mmol/L (3.5-5.1)
--- NOTE | 2024-02-05 14:56 | Hospitalist Progress Note ---
Date of Service February 05, 2024 Assessment & Plan (1) Leg wound, right: Plan: -He appears to have bilateral lower extremity stasis dermatitis with possible superimposed cellulitis that is now improving. -Continue local wound care. Wound care nurse has been consulted. -Completed oral Keflex and doxycycline- monitoring closely to determine if further antibiotics indicated -PT/OT, OOB with assist -Rehab upon DC- pending placement (2) 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: Plan: -Right lower extremity. -Treated on admission -Continue to monitor -Completed abx for possible superimposed cellulitis- was on Keflex and Doxycycline (3) Benign localized hyperplasia of prostate with urinary obstruction: Plan: -Urine retention noted in the ER with bladder scan > 500ml. -He is now on Flomax. -Brown catheter was placed in the ER -Passed voiding trial on 02/02- PVR's without retention -Urology consultation appreciated. (4) Edema of both lower extremities due to peripheral venous insufficiency: Plan: -Suspected due to chronic venous insufficiency. -TTE in 2021 with normal EF and no valvular abnormalities. -No significant proteinuria to suggest nephrotic syndrome (5) Failure to thrive in adult: Plan: -Reportedly feces found on floor of home. -Case management is pursuing placement- pending placement. -OT and PT while hospitalized Plan Pending placement to rehab- referrals have been sent. Awaiting acceptance. Admission and Anticipated Discharge Date Admission Date: January 29, 2024 Subjective Patient seen and evaluated bedside Patient continues to void well per patient and staff Denies acute complaints this AM Pending placement to rehab Review of Systems Review of Systems: As indicated in HPI Physical Exam Physical Exam: General-alert and oriented x3, no fever, no chills. Morbidly obese HEENT-head atraumatic and normocephalic, extraocular muscles intact Neck-no lymphadenopathy or thyromegaly, trachea midline Chest-clear to auscultation. No rales, wheezing or rhonchi Cardiac-regular rate and rhythm, normal S1 and S2 Abdomen-normal bowel sounds, no hepatosplenomegaly GUFoley catheter in place. No hematuria Extremities-chronic appearing edema bilateral lower extremities below the knees with chronic appearing stasis dermatitis bilaterally Neuro--cranial nerves II through XII intact, motor and sensory function within normal limits, strength symmetrical with generalized weakness, no focal deficits Psych-normal affect, normal mood Results & Data Results & Data Vital Signs (Past 12 Hours) Vital Signs Temp Pulse Resp BP Pulse Ox O2 Del Method 02/05/24 11:57 36.6 C 82 18 126/72 92 Room Air 02/05/24 09:00 Room Air 02/05/24 07:54 36.5 C 80 19 118/70 87 L Room Air PG Care Time/CCT Total # of Minutes Spent Total Time Spent with Patient: Total time spent is greater than 50% in coordination of care (as documented) at patient's floor/unit and/or counseling patient: Coding Level of Care Code 33462 SUB INP/OBS CARE 2/35MIN Diagnoses Leg wound, right S81.801A 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 B87.9 Benign localized hyperplasia of prostate with urinary obstruction N40.1; N13.8 Edema of both lower extremities due to peripheral venous insufficiency I87.2 Failure to thrive in adult R62.7
[2024-02-05 21:38] VITALS: RESP 18
[2024-02-06 06:25] LABS: Basophils # (auto) 0.06 K/uL (0.00-0.20); Basophils % (auto) 0.8 %; Eosinophils # (auto) 0.46 K/uL (0.00-0.50); Hematocrit (blood only) 39.6 % (42.0-52.0); Hemoglobin 12.7 g/dl (14.0-18.0); Immature Granulocytes # (auto) 0.02 K/uL (0.01-0.20); Immature Granulocytes % (auto) 0.3 %; Lymphocytes # (auto) 2.09 K/uL (1.20-3.40); Lymphocytes % (auto) 27.3 %; Mean Corpuscular Hemoglobin 28.8 pg (25.0-34.0); Mean Corpuscular Hgb Conc 32.1 g/dL (32.0-36.0); Mean Corpuscular Volume 89.8 fL (80.0-100.0); Mean Platelet Volume 9.1 fL (9.4-12.4); Monocytes # (auto) 0.96 K/uL (0.11-0.59); Monocytes % (auto) 12.5 %; Neutrophils # (auto) 4.06 K/uL (1.40-6.50); Neutrophils % (auto) 53.1 %; Platelet Count 204 K/uL (130-400); RDW Coefficient of Variation 14.4 % (11.5-14.5); RDW Standard Deviation 47.4 fL (36.4-46.3); Red Blood Count 4.41 M/uL (4.70-6.10); White Blood Count 7.65 K/ul (4.8-10.8)
[2024-02-06 06:53] LABS: BUN Creatinine Ratio 25.5 (10-20); Calcium 8.6 mg/dl (8.6-10.3); Creatinine Clr Calc Pharmacy 94.6 ml/min; Est GFR (African American) 87.1 ml/min; Est GFR (Non-African American) 75.1 ml/min; Potassium 3.6 mmol/L (3.5-5.1)
--- NOTE | 2024-02-06 18:35 | Hospitalist Progress Note ---
Date of Service February 06, 2024 Assessment & Plan (1) Leg wound, right: Plan: -He appears to have bilateral lower extremity stasis dermatitis with possible superimposed cellulitis that is now resolved after completing a course of keflex and doxycycline -Continue local wound care. Wound care nurse has been consulted. COntinue moisturizer to legs, tubigrips -monitoring closely to determine if further antibiotics indicated -PT/OT, OOB with assist -Rehab upon DC- pending placement (2) 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: Plan: -Right lower extremity. -Treated on admission -Continue to monitor -Completed abx for possible superimposed cellulitis- was on Keflex and Doxycycline (3) Benign localized hyperplasia of prostate with urinary obstruction: Plan: -Urine retention noted in the ER with bladder scan > 500ml. -He was started on Flomax and Brown now removed, voiding- PVR's without retention -Urology consultation appreciated (4) Edema of both lower extremities due to peripheral venous insufficiency: Plan: -Suspected due to chronic venous insufficiency. -TTE in 2021 with normal EF and no valvular abnormalities. -No significant proteinuria to suggest nephrotic syndrome continue lasix 20mg daily (5) Failure to thrive in adult: Plan: -Reportedly feces found on floor of home. -Case management is pursuing placement- pending placement. -OT and PT while hospitalized (6) DMII (diabetes mellitus, type 2): Plan: with prediabetes, last A1C 6.0% continue metformin (7) Dyslipidemia: Plan: continue statin Plan Dispo-accepted at [facility], awaiting insurance auth DVT proph-Lovenox SQ discussed care with daughter at bedside on 02/05 Admission and Anticipated Discharge Date Admission Date: January 29, 2024 Subjective Pt has no complaints. He is voiding, moving bowels, has not been out of bed because it takes 4 people to get him up and manpower not always available. Denies CP, SOB. Physical Exam Constitutional: WD/WN, vitals as above + morbidly obese Respiratory: normal respiratory effort, lungs clear to auscultation Cardiovascular: RRR, no murmur, no edema Gastrointestinal (Abdomen): normal bowel sounds, soft, nontender, no hepatosplenomegaly Skin: legs in tubigrip wraps not removed Psychiatric: A+Ox3, euthymic affect Results & Data Results & Data Vital Signs (Past 12 Hours) Vital Signs Temp Pulse Resp BP Pulse Ox O2 Del Method 02/06/24 14:53 36.6 C 84 18 107/63 90 Room Air 02/06/24 07:22 36.6 C 84 18 119/71 92 Room Air Laboratory Results CBC, BMP reviewed PG Care Time/CCT Total # of Minutes Spent Total Time Spent with Patient: Total time spent is greater than 50% in coordination of care (as documented) at patient's floor/unit and/or counseling patient: Coding Level of Care Code 54704 SUB INP/OBS CARE 07/04MIN Diagnoses Leg wound, right S81.801A 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 B87.9 Benign localized hyperplasia of prostate with urinary obstruction N40.1; N13.8 Edema of both lower extremities due to peripheral venous insufficiency I87.2 Failure to thrive in adult R62.7 DMII (diabetes mellitus, type 2) E11.9 Dyslipidemia E78.5
[2024-02-07 11:34] VITALS: PULSE 75; TEMP 97.7; O2SAT 91
[2024-02-07 11:46] VITALS: BP 107/72
--- NOTE | 2024-02-07 11:50 | Discharge Summary ---
Discharge Summary Date of Service February 07, 2024 Principal Dx & Hospital Course #1 = Principal Diagnosis (1) Leg wound, right: -He appears to have bilateral lower extremity stasis dermatitis with possible superimposed cellulitis that is now resolved after completing a course of keflex and doxycycline -Continue local wound care. Wound care nurse has been consulted. COntinue moisturizer to legs, tubigrips -monitoring closely to determine if further antibiotics indicated -PT/OT, OOB with assist -Rehab upon DC (2) 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: -Right lower extremity. -Treated on admission -Continue to monitor -Completed abx for possible superimposed cellulitis- was on Keflex and Doxycycline (3) Benign localized hyperplasia of prostate with urinary obstruction: -Urine retention noted in the ER with bladder scan > 500ml. -He was started on Flomax and Brown now removed, voiding- PVR's without retention -Urology consultation appreciated (4) Edema of both lower extremities due to peripheral venous insufficiency: -Suspected due to chronic venous insufficiency. -TTE in 2021 with normal EF and no valvular abnormalities. -No significant proteinuria to suggest nephrotic syndrome continue lasix 20mg daily (5) Failure to thrive in adult: -Reportedly feces found on floor of home. -Case management is pursuing placement- pending placement. -OT and PT while hospitalized (6) DMII (diabetes mellitus, type 2): with prediabetes, last A1C 6.0% continue metformin (7) Dyslipidemia: continue statin Plan Dispo-accepted at [facility], discharge today DVT proph-Lovenox SQ discussed care with daughter at bedside on 02/05 Notes For Next Care Provider None Medication Changes From Visit None Admission HPI Per Admitting Provider Alton Arenas is a 74 year old male who presents to the ER due to maggots on wound on right leg. He reports right leg cellulitis for the last 2 weeks which has been managed by his PCP with telehealth visits. doxycycline and cephalexin were started on 01/14 for 10 days. He reports the erythema and smell of discharge has been improving. Due to ongoing symptoms though he was restarted on a second course of cephalexin on 01/23 for 7 days which he remains on. He reports compliance from his medications. He is unsure regarding weight gain but thinks the swelling in both his legs is worse than usual. His daughter reports significant decline in his ability to move around, at baseline he can stand to pivot and take a few steps but now cannot stand up. Home health was arranged by his PCP and visited him today findings maggots in his wound, feces on the ground and henry and called EMS to bring him to hospital. He denies any respiratory or urinary problems. Discharge Exam Constitutional WD/WN, vitals as above + morbidly obese Respiratory normal respiratory effort, lungs clear to auscultation Cardiovascular RRR, no murmur, no edema Gastrointestinal (Abdomen) normal bowel sounds, soft, nontender, no hepatosplenomegaly Skin legs w/ tubigrips pulled down and with chronic venous stasis changes and dry skin Psychiatric A+Ox3, euthymic affect Discharge Plan Discharge Items Patient Disposition: Transfer Half-Way Fac Reason For Visit: RIGHT LEG WOUND, CELLULITIS Discharge Diagnosis: Leg cellulitis Ambulatory dysfunction Condition on Discharge: Good Activity: As commented below Lifting: Gradually increase as tolerated Bathing: No limitations Exercise/Sports: Gradually increase as tolerated Weightbearing: Full weightbearing Non-emergency contact: Primary Care Provider Call non-emergency contact if: you have any medication questions, your symptoms worsen and you have a fever Follow-up/Referrals: Harlan Osorio MD [Primary Care Provider] - Diet: Carb Consistent or DM2 Addtl Attending Provider Instructions: You are admitted with an infection of your legs which was treated with oral antibiotics successfully. You are significantly deconditioned and need rehab for strengthening before returning home. Please continue care to the legs as per wound care nurse's instructions. Pending Studies at Discharge: No Stand-Alone Forms: My [facility] Skilled Items Patient informed of condition?: Yes DNR: No Discharge Level of Care: Skilled Communicable Disease: No Discharge Prognosis: Improving Lines: None Urinary Catheter: No Medications and DC Order Prescriptions: New tamsulosin 0.4 mg Capsule 0.4 mg PO HS Qty: 30 0RF docusate sodium 100 mg Capsule 100 mg PO BID Qty: 60 0RF polyethylene glycol 3350 [Miralax] 17 gram Powder In Packet 17 g PO DAILY Qty: 30 0RF Continued hydroxyzine HCl 25 mg tablet 25 mg PO AMHS Qty: 30 5RF Hold Instructions: Resume on 03/13/23. simvastatin 20 mg tablet 20 mg PO QPM Qty: 90 0RF metformin 500 mg tablet 500 mg PO BID Qty: 180 0RF Rx Instructions: TAKE 1 TABLET TWICE DAILY furosemide 20 mg tablet 20 mg PO QAM Qty: 90 1RF Saccharomyces boulardii [Florastor] 250 mg capsule 250 mg PO BID Qty: 20 0RF Rx Instructions: pt ran out of Florastor due to not taking antibiotic tid...instead took it bid diphenhydramine HCl [Benadryl Allergy] 25 mg Tablet 25 mg PO HS Discontinued cephalexin 500 mg capsule 500 mg PO TID Qty: 21 0RF Rx Instructions: ordered tid but is only taking bid Discharge Orders: Discharge Order (Routine); Ordered 02/07/24 Ordered By: Cydney Dominguez Admission Data Admit Date/Time: 01/29/24 16:43 Attending Provider: Cydney Dominguez Admit Provider: Syd Cruz Primary Care Provider: Harlan Osorio Other Providers: Syd Cruz; [facility]; Malcolm Acosta; Mina Pollack; Tariq Schuler; Nenita Barry; Anupam Posadas; Joyce Rangel; Eloina Lama; Titi Yu; Anahi Mercado; Mani Kuhn; Jayne Christopher; Rinku France; Joe Sutton at [facility] Stay Data Consultations 01/29/24 15:58 ED Decision to Admit Stat 01/31/24 12:19 Consult Urology Routine Pending Results Patient Have Any Pending Studies at Discharge: No Discharge Instructions Given to Patient (Per Discharging Provider) You are admitted with an infection of your legs which was treated with oral antibiotics successfully. You are significantly deconditioned and need rehab for strengthening before returning home. Please continue care to the legs as per wound care nurse's instructions. Total Time Total Time Spent Total Time Spent (In Minutes): 35 min Total Time Includes: Examination of the Patient, Discharge Planning and Medication Reconciliation Coding Level of Care Code 97175 INP/OBS DISCH >30 MIN Diagnoses Leg wound, right S81.801A 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 B87.9 Benign localized hyperplasia of prostate with urinary obstruction N40.1; N13.8 Edema of both lower extremities due to peripheral venous insufficiency I87.2 Failure to thrive in adult R62.7 DMII (diabetes mellitus, type 2) E11.9 Dyslipidemia E78.5
== END 2024-02-07 12:20 | DRG 605 ==
LOC: ED 13:33 → 3E 16:43 → INTOOBSV 16:43 → SUATTDRO 16:43 → 3E 19:19

== ENCOUNTER 2024-09-24 17:34 | Inpatient (IN) ==
--- NOTE | 2024-09-24 17:57 | Emergency Department Note ---
Impression & Plan Leukocytosis Admission ED Provider Note HPI: History obtained from patient. The patient is a 74-year-old gentleman with history of hypertension, asthma, type 2 diabetes, impaired gait and mobility, peripheral venous insufficiency of the bilateral lower extremities, who presents the emergency department with a chief complaint of generalized weakness, cough, and urinary retention. Patient states he has had the symptoms for the past 2 days. Patient states today he had a mechanical fall in his house, EMS was contacted for lift assist and the patient did not come to the hospital. Patient states later in the day his daughter was assisting him and he was too weak to get up and therefore EMS was contacted again and this time the patient was agreeable for transport for further evaluation. On arrival here to the ED, the patient is tachycardic, he was mildly hypoxic. He otherwise is in no acute distress. Patient states he has had a cough for the past 2 days and some subjective fever/chills. ROS: - Per HPI Differential Diagnosis: Sepsis, rhabdomyolysis, acute kidney injury/dehydration, intracranial injury to include subdural hematoma, epidural hematoma, viral upper respiratory infection, pneumonia, urinary tract infection, acute on chronic ambulatory dysfunction, amongst other potential pathologies. *Outpatient medications and allergy history reviewed. PE: General: Alert, obese, no acute distress HEENT: Normocephalic, trachea midline Eyes: Extraocular eye movement is intact, no scleral erythema Pulmonary: Slightly coarse bilateral breath sounds without expiratory wheezing Cardio: Tachycardic rate with regular rhythm GI: Abdomen is soft to palpation : No suprapubic tenderness MSK: No evidence of trauma or malformation of the extremities, there is 2+ edema of the bilateral lower extremities with well demarcated erythema below the knee and above the ankle in the bilateral lower extremities without asymmetrical swelling, patient maintains flexion of the hips bilaterally without pain Skin: No evidence of rash Neuro: Alert, no focal deficits Psychiatric: Cooperative INDEPENDENT INTERPRETATIONS: glass 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 Lab work shows a leukocytosis of 21.02, hemoglobin is normal, platelet count is normal, CMP does not show any evidence of any critical findings, lactic acid is slightly elevated at 3.1, high-sensitivity troponin is also mildly elevated at 30.0. EKG does not show any acute ischemic changes per my interpretation, patient denies any chest pain. Chest x-ray shows some mild pulmonary vascular congestion but no focal infiltrate. Urinalysis does not appear consistent with infection. Patient does have what appears to be chronic venous stasis changes to the bilateral lower extremity however with some well-demarcated erythema bilaterally, there is no asymmetrical swelling of either lower extremity. Low suspicion for DVT, I do think this could potentially be a source for infection. CT imaging of the head does not show any evidence of any acute intracranial process. Patient states that he does have some ambulatory dysfunction at baseline but it has been worse recently, I feel he would benefit from inpatient admission given his persistent tachycardia, significant leukocytosis, and concern for possible infection systemically without an obvious source at this time. Patient will be placed on IV cefepime, I discussed his presentation with the on-call hospitalist, essence Cruz, the patient was placed for admission in stable condition. Consultants/Discussions held with other healthcare providers: - Hospitalist, Dr. Cruz Disposition discussion held by myself with: - Patient Diagnosis: 1. Leukocytosis, acute 2. Lactic acidosis, acute 3. Elevated high-sensitivity troponin level, acute 4. Elevated creatinine, acute, mild 5. Ketonuria, acute, trace 6. Ambulatory dysfunction, acute on chronic 7. Mechanical fall, acute Disposition: Admission Vipul Mai DO Emergency Medicine Past Med/Surg History Problem List Failure to thrive in adult Edema of both lower extremities due to peripheral venous insufficiency Leg wound, right (Acute) COPD (chronic obstructive pulmonary disease) Hematuria Impaired gait and mobility Immobility History of sepsis Morbid obesity with BMI of 40.0-44.9, adult DVT prophylaxis DMII (diabetes mellitus, type 2) Lower extremity cellulitis Hypomagnesemia (Acute) Depression Pruritic dermatitis Hypomagnesemia HARDIN (dyspnea on exertion) Gait abnormality Vitamin D deficiency Edema Asthma HTN (hypertension) (Acute) Prediabetes (Chronic) Benign localized hyperplasia of prostate with urinary obstruction (Chronic) Dyslipidemia (Chronic) GERD (gastroesophageal reflux disease) (Chronic) Medical History Urinary retention 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 Arriola S/P partial colectomy H/O oral surgery H/O inguinal hernia repair Family History Other Adopted Family history unknown Denies family history of Ovarian cancer Prostate cancer Myocardial infarction Breast cancer Colorectal cancer Social History Smoking Status: Former smoker Tobacco Type: Cigarettes Age Started Using Tobacco: 15; Age Quit Using Tobacco: 47; packs per day: 2; Second Hand Exposure: No; Do You Dip or Chew Tobacco: No; Hx Alcohol Use: No Hx Substance Use: No Preferred Language: Burundian Communication Ability: Effective Visual Impairment: No Limitations Hearing Ability: Normal Electrical And Instrumentation Manager Required: No Beliefs That Will Affect Care: None marital status: Current Living Situation: Family current occupational status: retired 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 Feels Safe at Home: Yes Childhood Exposure to Second-Hand Smoke: Yes Diet: regular during the past year weight has: remained stable Dental Care, Regularly: No Physical Activity Frequency: Does not Exercise Seatbelt Use: always Sunscreen Use: No Assistive Devices: Bedside Commode, Cane, Walker and Wheelchair Allergies Allergies Allergy/AdvReac Type Severity Reaction Status Date / Time sulfamethoxazole Allergy Mild itching Verified 01/29/24 16:11 [From Bactrim] trimethoprim [From Bactrim] Allergy Mild itching Verified 01/29/24 16:11 cheese Allergy Unknown SICK TO Verified 01/29/24 16:11 STOMACH Penicillins Allergy Unknown RASH Verified 01/29/24 16:11 Home Meds Home Medications Medication Instructions Recorded Confirmed diphenhydramine HCl 25 mg tablet 25 mg PO HS PRN Sleep 05/23/23 09/24/24 (Benadryl Allergy) Previous Rx's Medication Instructions Recorded docusate sodium 100 mg capsule 100 mg PO BID #60 caps 02/07/24 polyethylene glycol 3350 17 gram 17 g PO DAILY #30 ea 02/07/24 oral powder packet (Miralax) furosemide 20 mg tablet 20 mg PO QAM #90 tabs 05/19/24 metformin 500 mg tablet 500 mg PO BID #180 tabs 09/18/24 simvastatin 20 mg tablet 20 mg PO QPM #90 tabs 09/18/24 azithromycin 250 mg tablet See Rx Instructions PO .COMPLEX #6 09/21/24 (Zithromax Z-Jonas) tabs hydroxyzine HCl 25 mg tablet 25 mg PO BID PRN itching #60 tabs 09/21/24 Results & Data (ED) Vital Signs Vital Signs - 24 hr 09/24/24 17:48 09/24/24 17:48 09/24/24 17:55 Temperature Temperature Source Pulse Rate 123 H 121 H Pulse Rate from SpO2 Sensor 121 H Respiratory Rate 18 Respiratory Effort / Characteristics Respiratory Depth Respiratory Pattern Blood Pressure Blood Pressure Mean Pulse Oximetry 91 93 Oxygen Delivery Method Nasal Cannula Oxygen Flow Rate 2 Sepsis Recent Fever Within 48 Hours Sepsis New/Unexplained Change in Mental Status Sepsis Action Taken by Nursing 09/24/24 17:56 09/24/24 17:57 09/24/24 18:09 Temperature 36.9 C Temperature Source Oral Pulse Rate 123 H 124 H 115 H Pulse Rate from SpO2 Sensor 114 H Respiratory Rate 19 19 24 Respiratory Effort / Characteristics Non-Labored Spontaneous Respiratory Depth Normal Respiratory Pattern Regular Blood Pressure 104/76 104/71 113/92 Blood Pressure Mean 85 82 99 Pulse Oximetry 97 93 95 Oxygen Delivery Method Room Air Oxygen Flow Rate Sepsis Recent Fever Within 48 Hours No Sepsis New/Unexplained Change in Mental Status No Sepsis Action Taken by Nursing No Action Required 09/24/24 18:30 09/24/24 18:57 09/24/24 19:51 Temperature Temperature Source Pulse Rate 129 H 115 H Pulse Rate from SpO2 Sensor 120 H 112 H Respiratory Rate 18 22 Respiratory Effort / Characteristics Respiratory Depth Respiratory Pattern Blood Pressure 132/77 Blood Pressure Mean 104 Pulse Oximetry 95 93 Oxygen Delivery Method Nasal Cannula Oxygen Flow Rate 4 Sepsis Recent Fever Within 48 Hours Sepsis New/Unexplained Change in Mental Status Sepsis Action Taken by Nursing 09/24/24 20:00 09/24/24 20:00 09/24/24 20:00 Temperature Temperature Source Pulse Rate Pulse Rate from SpO2 Sensor Respiratory Rate Respiratory Effort / Characteristics Respiratory Depth Respiratory Pattern Blood Pressure 131/76 131/76 131/76 Blood Pressure Mean 91 91 91 Pulse Oximetry Oxygen Delivery Method Oxygen Flow Rate Sepsis Recent Fever Within 48 Hours Sepsis New/Unexplained Change in Mental Status Sepsis Action Taken by Nursing 09/24/24 20:06 09/24/24 20:30 09/24/24 20:31 Temperature Temperature Source Pulse Rate 107 H 111 H Pulse Rate from SpO2 Sensor 104 H 96 H Respiratory Rate 24 25 H Respiratory Effort / Characteristics Respiratory Depth Respiratory Pattern Blood Pressure 119/80 Blood Pressure Mean 83 Pulse Oximetry 97 96 Oxygen Delivery Method Oxygen Flow Rate Sepsis Recent Fever Within 48 Hours Sepsis New/Unexplained Change in Mental Status Sepsis Action Taken by Nursing 09/24/24 20:31 09/24/24 20:39 09/24/24 21:02 Temperature Temperature Source Pulse Rate 112 H Pulse Rate from SpO2 Sensor 112 H Respiratory Rate 18 Respiratory Effort / Characteristics Respiratory Depth Respiratory Pattern Blood Pressure 119/80 111/67 Blood Pressure Mean 83 92 Pulse Oximetry 96 Oxygen Delivery Method Oxygen Flow Rate Sepsis Recent Fever Within 48 Hours Sepsis New/Unexplained Change in Mental Status Sepsis Action Taken by Nursing 09/24/24 21:09 09/24/24 21:24 09/24/24 21:31 Temperature Temperature Source Pulse Rate 109 H 116 H Pulse Rate from SpO2 Sensor 109 H Respiratory Rate 24 26 H Respiratory Effort / Characteristics Respiratory Depth Respiratory Pattern Blood Pressure 116/100 Blood Pressure Mean 104 Pulse Oximetry 98 Oxygen Delivery Method Oxygen Flow Rate Sepsis Recent Fever Within 48 Hours Sepsis New/Unexplained Change in Mental Status Sepsis Action Taken by Nursing 09/24/24 21:39 Temperature Temperature Source Pulse Rate 112 H Pulse Rate from SpO2 Sensor 113 H Respiratory Rate 18 Respiratory Effort / Characteristics Respiratory Depth Respiratory Pattern Blood Pressure Blood Pressure Mean Pulse Oximetry 96 Oxygen Delivery Method Oxygen Flow Rate Sepsis Recent Fever Within 48 Hours Sepsis New/Unexplained Change in Mental Status Sepsis Action Taken by Nursing Laboratory Data 09/24/24 18:15 09/24/24 18:15 Lab Results 09/24/24 09/24/24 Range/Units 18:15 21:09 WBC 21.02 H (4.8-10.8) K/ul RBC 5.24 (4.70-6.10) M/uL Hgb 14.9 (14.0-18.0) g/dl Hct 45.4 (42.0-52.0) % MCV 86.6 (80.0-100.0) fL MCH 28.4 (25.0-34.0) pg MCHC 32.8 (32.0-36.0) g/dL RDW Std Deviation 47.2 H (36.4-46.3) fL RDW Coeff of Jocelyn 14.7 H (11.5-14.5) % Plt Count 218 (130-400) K/uL MPV 8.8 L (9.4-12.4) fL Immature Gran % (Auto) 0.5 % Neut % (Auto) 87.8 % Lymph % (Auto) 4.8 % [place] % (Auto) 6.5 % Eos % (Auto) 0.0 % Baso % (Auto) 0.4 % Neut # (Auto) 18.46 H (1.40-6.50) K/uL Lymph # (Auto) 1.01 L (1.20-3.40) K/uL [place] # (Auto) 1.36 H (0.11-0.59) K/uL Eos # (Auto) 0.00 (0.00-0.50) K/uL Baso # (Auto) 0.08 (0.00-0.20) K/uL Immature Gran # (Auto) 0.11 (0.01-0.20) K/uL ESR 55 H (0-20) mm/hr Sodium 136 (136-145) mmol/L Potassium 3.3 L (3.5-5.1) mmol/L Chloride 98 (98-107) mmol/L Carbon Dioxide 27 (21-32) mmol/L Anion Gap 11 (3-11) BUN 16 (6-23) mg/dl Creatinine 1.56 H (0.6-1.4) mg/dl Est Cr Clr Drug Dosing 56.7 ml/min eGFR 46.03 BUN/Creatinine Ratio 10.3 (10-20) Glucose 149 H (70-99(Fasting)) mg/dl Lactate 3.1 H* 3.1 H* (0.4-2.0) mmol/L Calcium 8.8 (8.6-10.3) mg/dl Total Bilirubin 0.8 (0.2-1.0) mg/dl AST 16 (13-39) U/L ALT 10 (7-52) U/L Alkaline Phosphatase 69 (34-104) U/L Total Creatine Kinase 98 (30-223) U/L Troponin I High Sens 30.8 H 32.5 H (0-20) pg/ml C-Reactive Protein 18.30 H (0-0.5) mg/dl Total Protein 7.3 (6.0-8.3) gm/dl Albumin 3.9 (3.4-5.0) gm/dl Globulin 3.4 (2.5-4.0) gm/dl Albumin/Globulin Ratio 1.1 (0.9-2) Procalcitonin 0.50 (0-0.5) ng/ml TSH 0.996 (0.300-4.500) uIu/ml Administered Medications Discontinued Medications Sodium Chloride (Nss) 1,000 mls @ 999 mls/hr IV .Q1H1M ONE Stop: 09/24/24 18:55 Last Infusion: 09/24/24 19:39 Dose: Infused Documented By: Admin: 09/24/24 18:20 Dose: 999 mls/hr Documented By: LYNDSAY Cefepime HCl (Maxipime 2000mg) 2,000 mg in 20 mls @ 5 mls/min IV NOW STA; Protocol Stop: 09/24/24 18:45 Last Admin: 09/24/24 19:42 Dose: 5 mls/min Documented By: LYNDSAY Sodium Chloride (Nss) 1,000 mls @ 999 mls/hr IV .Q1H1M BRANDON Stop: 09/24/24 22:00 Last Infusion: 09/25/24 00:05 Dose: Infused Documented By: Admin: 09/24/24 21:51 Dose: 999 mls/hr Documented By: Infusion: 09/24/24 21:41 Dose: Infused Documented By: Admin: 09/24/24 20:40 Dose: 999 mls/hr Documented By: LYNDSAY Sodium Chloride (Nss) 1,000 mls @ 999 mls/hr IV .Q1H1M ONE Stop: 09/24/24 21:56 Last Admin: 09/24/24 21:40 Dose: Not Given Documented By: LYNDSAY Daptomycin 700 mg/ Syringe 14 mls @ 9.25 mls/min IV NOW ONE; Protocol Stop: 09/24/24 21:08 Last Admin: 09/24/24 22:43 Dose: 9.25 mls/min Documented By: LYNDSAY Imaging Data Radiologist's Impression: Chest X-Ray 09/24/24 17:55 INDICATION: Chest pain. TECHNIQUE: Frontal radiograph of the chest. COMPARISON: Radiograph 01/29/2024. FINDINGS: Cardiomegaly. Mild pulmonary vascular congestion. No infiltrate, pleural effusion or pneumothorax. No acute osseous abnormality evident. IMPRESSION: Mild pulmonary vascular congestion. Electronically signed by Jonathan Leone 09-24-2024 7:[address] 09/24/24 17:55 EXAM: CT head/brain wo con CLINICAL HISTORY: Fall. TECHNIQUE: An axial non-contrast CT scan of the brain was performed from the skull base to the high parietal region. Coronal and sagittal sections have also been acquired. CT scan performed according to ALARA principles. Automated exposure control was used during the exam. One of the following dose reduction techniques was utilized for this exam.Automated exposure control, adjustment of the mA and/or kV according to patient size, and use of iterative reconstruction. COMPARISON: Prior dated 07/29/2022 FINDINGS: Bilateral periventricular and subcortical hypodensities are suggestive of microvascular ischemic changes. The ventricular system, cortical sulci, and basal cisterns are prominent and consistent with senile changes. No area of hyperacute or acute infarction is noted. No intracerebral or extra axial hematoma. Gomez-white matter differentiation is maintained. No mass effect or midline shift. No space-occupying lesion was noted. Normal CT appearance of the posterior fossa structures, namely the cerebellar hemispheres, brainstem, and cerebellar peduncles. The IACs are unremarkable. The cerebello-pontine angles are clear. The pituitary gland, the pineal gland, and the optic chiasm are unremarkable. The osseous structures in the skull base are unremarkable. No definite calvarium fractures. Mucosal thickening of the left maxillary sinus is noted. A retention cyst is noted in the right maxillary sinus. The rest of the scanned paranasal sinuses are clear. IMPRESSION: 1. No intra or extra-axial hematoma is seen. No acute calvarial fracture is noted. 2. No area of supra or infratentorial infarction is noted. 3. Changes of chronic microvascular angiopathy with age-related senile atrophy. 4. No significant interval change is noted. Electronically signed by Nacho Tan 09-24-2024 9:02 PM Discharge Plan Visit Data Chief Complaint: Fall Stated Complaint: FALL, WEAKNESS ED Provider: Vipul Mai Discharge Problem: Leukocytosis Patient Disposition: Admitted As Inpatient Discharge Instructions Interventions: ED Discharge Assessment Last Done: 09/24/24 22:36
[2024-09-24] MEDS: SODIUM CHLORIDE 0.9% 1,000 ML IV ONE ×2 (18:20→21:40)
[2024-09-24 18:34] LABS: Basophils # (auto) 0.08 K/uL (0.00-0.20); Basophils % (auto) 0.4 %; Hematocrit (blood only) 45.4 % (42.0-52.0); Hemoglobin 14.9 g/dl (14.0-18.0); Immature Granulocytes # (auto) 0.11 K/uL (0.01-0.20); Immature Granulocytes % (auto) 0.5 %; Lymphocytes # (auto) 1.01 K/uL (1.20-3.40); Lymphocytes % (auto) 4.8 %; Mean Corpuscular Hemoglobin 28.4 pg (25.0-34.0); Mean Corpuscular Hgb Conc 32.8 g/dL (32.0-36.0); Mean Corpuscular Volume 86.6 fL (80.0-100.0); Mean Platelet Volume 8.8 fL (9.4-12.4); Monocytes # (auto) 1.36 K/uL (0.11-0.59); Monocytes % (auto) 6.5 %; Neutrophils # (auto) 18.46 K/uL (1.40-6.50); Neutrophils % (auto) 87.8 %; Platelet Count 218 K/uL (130-400); RDW Coefficient of Variation 14.7 % (11.5-14.5); RDW Standard Deviation 47.2 fL (36.4-46.3); Red Blood Count 5.24 M/uL (4.70-6.10); White Blood Count 21.02 K/ul (4.8-10.8)
[2024-09-24 18:48] LABS: Albumin Globulin Ratio 1.1 (0.9-2); Albumin Level 3.9 gm/dl (3.4-5.0); BUN Creatinine Ratio 10.3 (10-20); Bilirubin,Total 0.8 mg/dl (0.2-1.0); Calcium 8.8 mg/dl (8.6-10.3); Creatinine Clr Calc Pharmacy 56.7 ml/min; Globulin 3.4 gm/dl (2.5-4.0); Potassium 3.3 mmol/L (3.5-5.1); Total Protein 7.3 gm/dl (6.0-8.3)
[2024-09-24 18:51] LABS: Appearance Urine Clear (Clear); Bacteria Urine Automated None Seen (None Seen); Bilirubin Urine 1+ (Negative); Blood Urine Negative (Negative); Color Urine Dark Yellow; Epithelial Cell Urine Auto 0-2 /hpf (0-2); Glucose Urine UA Negative (Negative); Ketones Urine Trace (Negative); Leukocyte Esterase Urine Negative (Negative); Nitrite Urine Negative (Negative); Protein Urine 2+ (Negative); Specific Gravity Urine 1.025 (1.000-1.030); Urobilinogen Urine Negative (Negative); WBC Urine Automated 0-5 /hpf (0-5); pH Urine 5.5 (4.5-7.5)
[2024-09-24 18:54] LABS: Troponin I High Sensitivity 30.8 pg/ml (0-20)
--- NOTE | 2024-09-24 19:02 | XRay Report ---
INDICATION: Chest pain. TECHNIQUE: Frontal radiograph of the chest. COMPARISON: Radiograph 01/29/2024. FINDINGS: Cardiomegaly. Mild pulmonary vascular congestion. No infiltrate, pleural effusion or pneumothorax. No acute osseous abnormality evident. IMPRESSION: Mild pulmonary vascular congestion. Electronically signed by Jonathan Leone 09-24-2024 7:00 PM
[2024-09-24 19:03] LABS: Thyroid Stimulating Hormone 0.996 uIu/ml (0.300-4.500)
[2024-09-24] MEDS: CEFEPIME 2000MG 2,000 MG/20 ML SYR IV STA (19:42)
[2024-09-24] MEDS: SODIUM CHLORIDE 0.9% 1,000 ML IV SCH (20:40)
--- NOTE | 2024-09-24 21:03 | CT Scan Report ---
EXAM: CT head/brain wo con CLINICAL HISTORY: Fall. TECHNIQUE: An axial non-contrast CT scan of the brain was performed from the skull base to the high parietal region. Coronal and sagittal sections have also been acquired. CT scan performed according to ALARA principles. Automated exposure control was used during the exam. One of the following dose reduction techniques was utilized for this exam.Automated exposure control, adjustment of the mA and/or kV according to patient size, and use of iterative reconstruction. COMPARISON: Prior dated 07/29/2022 FINDINGS: Bilateral periventricular and subcortical hypodensities are suggestive of microvascular ischemic changes. The ventricular system, cortical sulci, and basal cisterns are prominent and consistent with senile changes. No area of hyperacute or acute infarction is noted. No intracerebral or extra axial hematoma. Gomez-white matter differentiation is maintained. No mass effect or midline shift. No space-occupying lesion was noted. Normal CT appearance of the posterior fossa structures, namely the cerebellar hemispheres, brainstem, and cerebellar peduncles. The IACs are unremarkable. The cerebello-pontine angles are clear. The pituitary gland, the pineal gland, and the optic chiasm are unremarkable. The osseous structures in the skull base are unremarkable. No definite calvarium fractures. Mucosal thickening of the left maxillary sinus is noted. A retention cyst is noted in the right maxillary sinus. The rest of the scanned paranasal sinuses are clear. IMPRESSION: 1. No intra or extra-axial hematoma is seen. No acute calvarial fracture is noted. 2. No area of supra or infratentorial infarction is noted. 3. Changes of chronic microvascular angiopathy with age-related senile atrophy. 4. No significant interval change is noted. Electronically signed by Nacho Tan 09-24-2024 9:02 PM
--- NOTE | 2024-09-24 21:03 | History & Physical Report ---
Date of Service September 24, 2024 Assessment & Plan (1) Sepsis: (2) Cellulitis: (3) BPH (benign prostatic hyperplasia): (4) DMII (diabetes mellitus, type 2): Plan 74-year-old male PMHx T2DM, COPD, asthma, HTN, GERD, dyslipidemia, depression, and BPH presenting for fall at home. ED evaluation reveals leukocytosis 21.02, H/H stable; ESR 55; CMP K 3.3, Cr 1.56, glucose 149; lactate 3.1; trop 30.8, pending repeat; CRP 18.3; procal 0.50; TSH 0.996; UA without evidence of infection; COVID swab negative; CXR with mild pulmonary vascular congestion; Head CT without acute findings, does reveal chronic microvascular angiopathy with age related senile atrophy.; Provided with 2 L NSS in ED and Cefepime 2g IV. #Sepsis/Cellulitis Presenting for fall at home; arrival to ED found to be septic. Likely source cellulitis- legs; Received total 3L IVF; SIRS criteria HR 123, WBC 21.2; Tachycardic but otherwise hemodynamically stable with initial BP 104/76, admitting BP 116/100. Is also having some coughing with sputum production, CXR and exam not supportive of PNA and has been on azithromycin. Also some diarrhea (1-2 episodes per day), presumed possibly 2/2 abx use and without abdominal pain. History of chronic venous insufficiency with recurrent cellulitis and ulcerations. - CBC leukocytosis 21.02, stable H/H; ESR 55; lactate 3.1; procal 0.50; pending blood cx - Trop 30.8, repeat 32.5, trend to peak; EKG sinus tachycardia without ischemic changes; in setting of sepsis- Demand related - Lactate am - CXR mild pulmonary vascular congestion; Head CT without acute findings - Fluid bolus total of 2,345 mL- received 3L total IVF (not hypotensive, lactate < 4) - Sputum culture pending - Stool cultures pending - Wound care BLE prn - Hold statin while on daptomycin, hold lasix in setting of sepsis - Daptomycin + Cefepime IV #BPH Urinary retention on arrival, bladder scan in ED 670 mL - catheter was placed in ED. - Cr 1.56; UA negative for infection - Bladder scan prn #T2DM H/o T2DM, on metformin at home. - Most recent A1C 09/2023 @ 6.0% - Hold home metformin - SSI with target BSG range 110-140mg/dL, CF 20, carb ratio 5 - BSG ACHS - Pharm glycemic management consult placed, appreciate assistance- Adjust regimen as needed #COPD- Dx w/ exacerbation 09/21/2024 by PCP, started on Azithromycin at that time and to continue inhalers; d/c abx at . No O2 at baseline. #HLD- Simvastatin - HELD at admission while on daptomycin #Depression/Adjustment disorder- Stable, no medications Dispo: Admit, PCU VTE Prophylaxis: Heparin This document was dictated utilizing HipSwap. Please excuse any grammatical errors that may be secondary to use of this software. Admission and Anticipated Discharge Date Admission Date: 09/24/2024 History of Present Illness Chief Complaint: Fall Primary Care Provider: Harlan Osorio MD 74-year-old male PMHx T2DM, COPD, asthma, HTN, GERD, dyslipidemia, depression, and BPH presenting for fall at home. States that the fall happened the morning of arrival. He felt that his feet got tied up underneath him and he fell because of this. He landed on his bottom and did not hit his head because his heater room helper was there to help catch his head. He is not on any blood thinners. No areas of complaint at time of admission. 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 Patient reports that the day of arrival, he was experiencing some new SOB and an episode of full body shaking (no alteration in consciousness). 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 Has had decreased appetite and overall poor oral intake for the past wee as well. 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 Patient was recently started on Azithromycin (09/21/2024) for COPD exacerbation and states that since starting this, he has experienced diarrhea. Overall, the patient does have some SOB but states that it had improved from earlier on the day of arrival. Does not that his legs are often edematous bilaterally, and that he had some drainage coming from his posterior calves recently. He has not noticed any direct injury to his legs, but does relay that his legs often do have open areas. He is denying chest pain/pressure, palpitations, abdominal pain, N/V/C, abnormal numbness/tingling (does have neuropathy at baseline), additional LUTS, or fevers. ED evaluation reveals leukocytosis 21.02, H/H stable; ESR 55; CMP K 3.3, Cr 1.56, glucose 149; lactate 3.1; trop 30.8, pending repeat; CRP pending; procal 0.50; TSH 0.996; UA without evidence of infection; COVID swab negative; CXR with mild pulmonary vascular congestion; Head CT without acute findings, does reveal chronic microvascular angiopathy with age related senile atrophy.; Provided with 2 L NSS in ED and Cefepime 2g IV. Please see Dr. Cruz's attestation for adjustments/additions to treatment plan. Allergies Allergy/AdvReac Type Severity Reaction Status Date / Time sulfamethoxazole Allergy Mild itching Verified 01/29/24 16:11 [From Bactrim] trimethoprim [From Bactrim] Allergy Mild itching Verified 01/29/24 16:11 cheese Allergy Unknown SICK TO Verified 01/29/24 16:11 STOMACH Penicillins Allergy Unknown RASH Verified 01/29/24 16:11 Home Medications Medication Instructions Recorded Confirmed Type diphenhydramine HCl 25 mg tablet 25 mg PO HS PRN Sleep 05/23/23 09/24/24 History (Benadryl Allergy) docusate sodium 100 mg capsule 100 mg PO BID #60 caps 02/07/24 09/24/24 Rx polyethylene glycol 3350 17 gram 17 g PO DAILY #30 ea 02/07/24 09/24/24 Rx oral powder packet (Miralax) furosemide 20 mg tablet 20 mg PO QAM #90 tabs 05/19/24 09/24/24 Rx metformin 500 mg tablet 500 mg PO BID #180 tabs 09/18/24 09/24/24 Rx simvastatin 20 mg tablet 20 mg PO QPM #90 tabs 09/18/24 09/24/24 Rx azithromycin 250 mg tablet See Rx Instructions PO .COMPLEX #6 09/21/24 09/24/24 Rx (Zithromax Z-Jonas) tabs hydroxyzine HCl 25 mg tablet 25 mg PO BID PRN itching #60 tabs 09/21/24 09/24/24 Rx Past Med/Surg History Problem List (Updated 09/25/24 @ 00:34 by Eliseo Gutierrez PA-C) BPH (benign prostatic hyperplasia) Failure to thrive in adult Edema of both lower extremities due to peripheral venous insufficiency Leg wound, right (Acute) COPD (chronic obstructive pulmonary disease) Hematuria Impaired gait and mobility Immobility History of sepsis Morbid obesity with BMI of 40.0-44.9, adult DVT prophylaxis DMII (diabetes mellitus, type 2) Lower extremity cellulitis Hypomagnesemia (Acute) Depression Pruritic dermatitis Hypomagnesemia HARDIN (dyspnea on exertion) Gait abnormality Vitamin D deficiency Edema Asthma HTN (hypertension) (Acute) Prediabetes (Chronic) Benign localized hyperplasia of prostate with urinary obstruction (Chronic) Dyslipidemia (Chronic) GERD (gastroesophageal reflux disease) (Chronic) Medical History Urinary retention 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 Arriola S/P partial colectomy H/O oral surgery H/O inguinal hernia repair Family History Other Adopted Family history unknown Denies family history of Ovarian cancer Prostate cancer Myocardial infarction Breast cancer Colorectal cancer Social History Smoking Status: Former smoker Tobacco Type: Cigarettes Age Started Using Tobacco: 15; Age Quit Using Tobacco: 47; packs per day: 2; Second Hand Exposure: No; Do You Dip or Chew Tobacco: No; Tobacco Cessation Education Requested by Patient: No Hx Alcohol Use: No Hx Substance Use: No Preferred Language: Occitan Communication Ability: Effective Visual Impairment: No Limitations Hearing Ability: Normal English Tutor Required: Voice Beliefs That Will Affect Care: None marital status: Current Living Situation: Spouse current occupational status: retired 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 Other Information That Helps Us Care for You: No Feels Safe at Home: Yes Safety Concerns: Feels Safe At This Time Childhood Exposure to Second-Hand Smoke: Yes Diet: regular during the past year weight has: remained stable Dental Care, Regularly: No Physical Activity Frequency: Does not Exercise Seatbelt Use: always Sunscreen Use: No Assistive Devices: Bedside Commode Review of Systems 2 Review of Systems: All systems reviewed & are unremarkable except as noted in Subjective Physical Exam 2 Physical Exam: General: No acute distress Skin: Warm and dry; BLE with chronic venous changes; Erythematous and edematous bilaterally (2+); blisters throughout, marked erythematous border on LLE; toenails thick + yellow Head: Normocephalic, atraumatic Eyes: PERRL, conjunctivae clear, sclera non-icteric ENT: External ear and ear canal without swelling; nose atraumatic; good dentition, tongue normal appearance, pharynx normal Neck: Supple, no LAD Cardio: RRR, no M/G/R, S1 and S2 normal Resp: No respiratory distress, some expiratory wheezing upper lobes bilaterally; Wearing O2 via NC (none at baseline) Abdomen: Soft, symmetric, nontender; No masses or hepatosplenomegaly; Bowel sounds normoactive MSK: No deformities; pulses palpable and equal; no edema. Neuro: Awake, alert; Sensation intact bilaterally (at patinet's baseline); CN grossly intact Psych: Appropriate mood and affect; good judgement and insight. 2 family members present in room at time of visit. Results & Data Results & Data Vital Signs (Past 12 Hours) Vital Signs Temp Pulse Resp BP Pulse Ox O2 Del Method O2 Flow Rate 09/24/24 18:30 129 H 18 95 09/24/24 18:09 115 H 24 113/92 95 09/24/24 17:57 124 H 19 104/71 93 09/24/24 17:56 36.9 C 123 H 19 104/76 97 Room Air 09/24/24 17:55 93 Nasal Cannula 2 09/24/24 17:48 121 H 18 91 09/24/24 17:48 123 H Laboratory Results 09/24/24 19:12 Aerobic Blood Culture - Pending Blood Anaerobic Blood Culture - Pending 09/24/24 19:12 Aerobic Blood Culture - Pending Blood Anaerobic Blood Culture - Pending 09/24/24 09/24/24 Unknown 18:15 WBC 21.02 H RBC 5.24 Hgb 14.9 Hct 45.4 MCV 86.6 MCH 28.4 MCHC 32.8 RDW Std Deviation 47.2 H RDW Coeff of Jocelyn 14.7 H Plt Count 218 MPV 8.8 L Immature Gran % (Auto) 0.5 Neut % (Auto) 87.8 Lymph % (Auto) 4.8 [place] % (Auto) 6.5 Eos % (Auto) 0.0 Baso % (Auto) 0.4 Neut # (Auto) 18.46 H Lymph # (Auto) 1.01 L Alger # (Auto) 1.36 H Eos # (Auto) 0.00 Baso # (Auto) 0.08 Immature Gran # (Auto) 0.11 Sodium 136 Potassium 3.3 L Chloride 98 Carbon Dioxide 27 Anion Gap 11 BUN 16 Creatinine 1.56 H Est Cr Clr Drug Dosing 56.7 eGFR 46.03 BUN/Creatinine Ratio 10.3 Glucose 149 H Lactate 3.1 H* Calcium 8.8 Total Bilirubin 0.8 AST 16 ALT 10 Alkaline Phosphatase 69 Total Creatine Kinase 98 Troponin I High Sens 30.8 H Total Protein 7.3 Albumin 3.9 Globulin 3.4 Albumin/Globulin Ratio 1.1 TSH 0.996 Urine Color Dark Yellow Urine Appearance Clear Urine pH 5.5 Ur Specific [place] 1.025 Urine Protein 2+ H Urine Glucose (UA) Negative Urine Ketones Trace H Urine Blood Negative Urine Nitrite Negative Urine Bilirubin 1+ H Urine Urobilinogen Negative Ur Leukocyte Esterase Negative Urine WBC (Auto) 0-5 Urine RBC (Auto) 3-5 H U Hyaline Cast (Auto) 3-5 H U Epithel Cells (Auto) 0-2 Urine Bacteria (Auto) None Seen SARS-CoV-2 (PCR) NEGATIVE Diagnostic Findings Chest X-Ray 09/24/24 17:55 INDICATION: Chest pain. TECHNIQUE: Frontal radiograph of the chest. COMPARISON: Radiograph 01/29/2024. FINDINGS: Cardiomegaly. Mild pulmonary vascular congestion. No infiltrate, pleural effusion or pneumothorax. No acute osseous abnormality evident. IMPRESSION: Mild pulmonary vascular congestion. Electronically signed by Jonathan Leone 09-24-2024 7:00 PM Medications Administered NSS 2L Cefepime 2 g IV ECG Additional Comments: Sinus tachycardia with ventricular ventricular complexes and PVC or fusion beats, incomplete RBBB, LAFB 112 bpm, NM 138, QRS 114, QT/QTc 340/42, PRT 67/-59/41 Code Status & VTE Plan Code Status Full Supervising Physician Co-Signing Physician Notes I personally saw and examined the patient. I independently reviewed the labs, EKG, imaging, problem list, medication list, past medical history and family history. I verified all gilman points and agree with Eliseo Gutierrez PA-C with the following exceptions and/or additions: 74 year old male presents to the ER with fall with transferring to bedside. General weakness for the last week. Hypoxic with mild productive cough. Left leg appears more erythematous than usual and reportedly has some pus come out the back of the leg. O/E HS RRR, no murmurs, Chest CTAB, Abdo SNT, Erythematous and swollen left lower extremity as per picture above A/P Sepsis / cellulitis - suspected source cellulitis (previously admitted with maggots on leg wound), currently left appears to be more swollen and erythematous. Daptomycin + cefepime. Follow up blood cultures Urine retention - gee catheter placed on admission PG Care Time/CCT Total # of Minutes Spent Total Time Spent with Patient: Total time spent is greater than 50% in coordination of care (as documented) at patient's floor/unit and/or counseling patient: Coding Level of Care Code 95425 INT INP/OBS CARE MIN Diagnoses Sepsis A41.9 Cellulitis L03.90 Site of cellulitis: unspecified site BPH (benign prostatic hyperplasia) N40.0 DMII (diabetes mellitus, type 2) E11.9 (2) Cellulitis Site of cellulitis: unspecified site Qualified Code(s): L03.90 - Cellulitis, unspecified
[2024-09-24 22:25] LABS: C Reactive Protein 18.3 mg/dl (0-0.5)
[2024-09-24] MEDS: DAPTOmycin 700 MG in SYRINGE 0 ML IV ONE (22:43)
[2024-09-24] MEDS ORDERED: ONDANSETRON INJ 2 MG/ML 2 ML VIAL IV PRN (23:53)
[2024-09-24] MEDS ORDERED: hydrOXYzine HCl 25 MG TAB PO PRN (23:53)
[2024-09-24] MEDS ORDERED: MAGNESIUM HYDROXIDE SUSP 30 ML UDC PO PRN (23:53)
[2024-09-25] MEDS ORDERED: diphenhydrAMINE Capsule 25 MG CAP PO PRN
[2024-09-25] MEDS ORDERED: CARBOHYDRATES FOR HYPOGLYCEMIA PO PRN (00:31)
[2024-09-25] MEDS ORDERED: GLUCAGON FOR INJ 1 MG VIAL SQ PRN (00:31)
[2024-09-25] MEDS ORDERED: DEXTROSE 50% 50 ML SYRINGE IV PRN (00:31)
[2024-09-25] MEDS ORDERED: GLUCOSE 40% GEL 15 GM TUBE PO PRN (00:31)
[2024-09-25] MEDS ORDERED: PHARMACY GLYCEMIC MGMT CONSULT PRN (00:31)
[2024-09-25] MEDS ORDERED: GLUCOSE 10 TAB/TUBE PO PRN (00:31)
[2024-09-25] MEDS: NSS + 20MEQ KCL 20 MEQ/1,000 ML BAG IV SCH (07:59)
[2024-09-25] MEDS: INSULIN ASPART PER UNIT CHARGE SC SCH (08:04)
[2024-09-25] MEDS: CEFEPIME 2000MG 2,000 MG/20 ML SYR IV SCH (08:13)
[2024-09-25] MEDS: POLYETHYLENE (MIRALAX) 17 GM PACK PO SCH (08:13)
[2024-09-25] MEDS: DOCUSATE SODIUM 100 MG CAP PO SCH (08:13)
[2024-09-25] MEDS: HEPARIN SOD 5,000 UNIT/0.5 ML VIAL SQ SCH (08:13)
[2024-09-25] MEDS ORDERED: STAT IV Infusion **Titration per Protocol STA (08:25)
[2024-09-25] MEDS: dilTIAZem HCl 5 MG/ML 5 ML VIAL IV STA ×3 (08:29→11:05)
[2024-09-25] MEDS: dilTIAZem HCL 125 MG in DEXTROSE 5% 100 ML IV SCH (08:43)
[2024-09-25] MEDS: POTASSIUM CHLORIDE CRTAB 20 MEQ TABCR PO ONE (09:52)
--- NOTE | 2024-09-25 09:55 | Cardiology Consultation ---
Date of Consultation September 25, 2024 Assessment & Plan (1) Atrial fibrillation with rapid ventricular response: Plan 1. Atrial fibrillation: First documented episode. Unclear if he has had occult episodes at home as he is not aware of the arrhythmia at this time and no outpatient monitoring has been performed. Very likely precipitated by his acute illness. He does have some risk factors for atrial fibrillation to include his obesity, primary lung disease and likely obstructive sleep apnea. No history of significant valvular heart disease on echocardiogram performed in 2021. At this point would seem reasonable to attempt rate control. Currently on a diltiazem infusion. I think is very likely that he will convert to sinus rhythm on his own once his acute illness improves. Alternatively, we could perform a cardioversion prior to discharge if rate control proves difficult. Repeat echocardiogram pending. With regard to systemic anticoagulation, he is in a demographic where this is generally recommended. I think he is likely best served by Eliquis 5 mg twice daily. Renal function compromise currently due to his acute illness, but generally speaking normal renal function. 2. Elevated troponin: Very mild elevation. This is in the setting of acute ill ness. 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 I do not think he requires an additional evaluation in this regard. History of Present Illness Reason for Consultation: Atrial fibrillation Requesting Physician: Leland Attending Physician: Sterling Ha MD History of Present Illness The patient is a 74-year-old gentleman without a known history of cardiac disease who presented to the hospital after suffering a fall. Patient does have some ambulatory difficulty and apparently tripped at home. This did not result in a major injury. However, afterwards he felt somewhat fatigued and more short of breath. He also developed what he describes as "chills" and shaking. His symptoms progressed to the point where he sought medical evaluation and was felt to have an element of sepsis. He was admitted for treatment of what is believed to be lower extremity cellulitis. This morning the patient was on telemetry when he developed atrial fibrillation and rapid ventricular response. The patient was unaware of any change in his cardiac condition. He was not aware of any palpitations or elevated heart rates. Did not report any symptoms of dizziness or lightheadedness. No symptoms of chest discomfort. He cannot recall any of the symptoms at home either. His activity is very limited by ambulatory dysfunction. He spends most of his day and night in a chair. He does have some dyspnea with activity at times. No exertional chest pain. No devices at home which monitor his heart rate or pulse. Has not been aware of any elevated heart rates in the recent past. He does have chronic lower extremity edema. Allergies Allergy/AdvReac Type Severity Reaction Status Date / Time sulfamethoxazole Allergy Mild itching Verified 01/29/24 16:11 [From Bactrim] trimethoprim [From Bactrim] Allergy Mild itching Verified 01/29/24 16:11 cheese Allergy Unknown SICK TO Verified 01/29/24 16:11 STOMACH Penicillins Allergy Unknown RASH Verified 01/29/24 16:11 Home Medications Medication Instructions Recorded Confirmed Type diphenhydramine HCl 25 mg tablet 25 mg PO HS PRN Sleep 05/23/23 09/24/24 History (Benadryl Allergy) docusate sodium 100 mg capsule 100 mg PO BID #60 caps 02/07/24 09/24/24 Rx polyethylene glycol 3350 17 gram 17 g PO DAILY #30 ea 02/07/24 09/24/24 Rx oral powder packet (Miralax) furosemide 20 mg tablet 20 mg PO QAM #90 tabs 05/19/24 09/24/24 Rx metformin 500 mg tablet 500 mg PO BID #180 tabs 09/18/24 09/24/24 Rx simvastatin 20 mg tablet 20 mg PO QPM #90 tabs 09/18/24 09/24/24 Rx azithromycin 250 mg tablet See Rx Instructions PO .COMPLEX #6 09/21/24 09/24/24 Rx (Zithromax Z-Jonas) tabs hydroxyzine HCl 25 mg tablet 25 mg PO BID PRN itching #60 tabs 09/21/24 09/24/24 Rx Patient History Medical History Urinary retention 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 Arriola S/P partial colectomy H/O oral surgery H/O inguinal hernia repair Family History Other Adopted Family history unknown Denies family history of Ovarian cancer Prostate cancer Myocardial infarction Breast cancer Colorectal cancer Social History Smoking Status: Former smoker Tobacco Type: Cigarettes Age Started Using Tobacco: 15; Age Quit Using Tobacco: 47; packs per day: 2; Second Hand Exposure: No; Do You Dip or Chew Tobacco: No; Tobacco Cessation Education Requested by Patient: No Hx Alcohol Use: No Hx Substance Use: No Preferred Language: Bhutanese Communication Ability: Effective Visual Impairment: No Limitations Hearing Ability: Normal Curtain Supervisor Required: Voice Beliefs That Will Affect Care: None marital status: Current Living Situation: Spouse current occupational status: retired 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 Mood and affect appeared normal. He answered all questions appropriately. Morbidly obese HEENT: Pupils are equal and reactive to light and accommodation. Extraocular movements are intact. The sclerae are anicteric. Neuro: Cranial nerves intact Lungs: Poor air movement overall. Normal respiratory effort. No rales. No expiratory wheezing. Cardiac: Heart demonstrates an irregular rhythm and rapid rate. Normal S1 and S2. No murmurs on examination. Pulses: The patient has palpable radial pulses bilaterally that are equal in i ntensity Extremities: There was no evidence of hypoperfusion. There is no cyanosis or clubbing. Severe edema of the lower extremities. Trophic changes with cellulitis and skin lesions. Skin: I did not appreciate any rashes on examination today. Results & Data Vital Signs (Past 12 Hours) Vital Signs Temp Pulse Pulse Resp BP BP Pulse Ox 09/25/24 09:25 188 H 104/60 09/25/24 07:17 37.0 C 98 H 19 131/73 95 09/25/24 04:14 36.5 C 93 H 20 115/71 95 09/25/24 00:02 36.8 C 116 H 18 113/61 95 09/24/24 23:59 109 H 09/24/24 23:53 09/24/24 23:53 36.8 C 116 H 22 113/61 95 09/24/24 23:53 09/24/24 23:53 09/24/24 22:27 117 H 23 138/76 96 09/24/24 21:48 110 H 17 138/76 100 Pulse Ox O2 Del Method O2 Del Method O2 Flow Rate O2 Flow Rate 09/25/24 09:25 09/25/24 07:17 Nasal Cannula 3 09/25/24 04:14 Nasal Cannula 3 09/25/24 00:02 Nasal Cannula 3 09/24/24 23:59 09/24/24 23:53 Nasal Cannula 3 09/24/24 23:53 Nasal Cannula 3 09/24/24 23:53 Nasal Cannula 3 09/24/24 23:53 95 Nasal Cannula 3 09/24/24 22:27 09/24/24 21:48 Laboratory Results Abnormal Lab Results 09/24/24 09/24/24 09/24/24 18:15 21:09 Unknown WBC 21.02 H RBC 5.24 Hgb 14.9 Hct 45.4 MCV 86.6 MCH 28.4 MCHC 32.8 RDW Std Deviation 47.2 H RDW Coeff of Jocelyn 14.7 H Plt Count 218 MPV 8.8 L Immature Gran % (Auto) 0.5 Neut % (Auto) 87.8 Lymph % (Auto) 4.8 Wright % (Auto) 6.5 Eos % (Auto) 0.0 Baso % (Auto) 0.4 Neut # (Auto) 18.46 H Lymph # (Auto) 1.01 L Wright # (Auto) 1.36 H Eos # (Auto) 0.00 Baso # (Auto) 0.08 Immature Gran # (Auto) 0.11 ESR 55 H Sodium 136 Potassium 3.3 L Chloride 98 Carbon Dioxide 27 Anion Gap 11 BUN 16 Creatinine 1.56 H Est Cr Clr Drug Dosing 56.7 eGFR 46.03 BUN/Creatinine Ratio 10.3 Glucose 149 H POC Glucose Osmolality Lactate 3.1 H* 3.1 H* Calcium 8.8 Total Bilirubin 0.8 AST 16 ALT 10 Alkaline Phosphatase 69 Total Creatine Kinase 98 Troponin I High Sens 30.8 H 32.5 H C-Reactive Protein 18.30 H B-Natriuretic Peptide Total Protein 7.3 Albumin 3.9 Globulin 3.4 Albumin/Globulin Ratio 1.1 Procalcitonin 0.50 TSH 0.996 Free T4 Free T3 Urine Color Dark Yellow Urine Appearance Clear Urine pH 5.5 Ur Specific [place]bury 1.025 Urine Protein 2+ H Urine Glucose (UA) Negative Urine Ketones Trace H Urine Blood Negative Urine Nitrite Negative Urine Bilirubin 1+ H Urine Urobilinogen Negative Ur Leukocyte Esterase Negative Urine WBC (Auto) 0-5 Urine RBC (Auto) 3-5 H U Hyaline Cast (Auto) 3-5 H U Epithel Cells (Auto) 0-2 Urine Bacteria (Auto) None Seen SARS-CoV-2 (PCR) NEGATIVE 09/25/24 09/25/24 09/25/24 02:10 07:17 08:23 WBC RBC Hgb Hct MCV MCH MCHC RDW Std Deviation RDW Coeff of Jocelyn Plt Count MPV Immature Gran % (Auto) Neut % (Auto) Lymph % (Auto) Wright % (Auto) Eos % (Auto) Baso % (Auto) Neut # (Auto) Lymph # (Auto) Wright # (Auto) Eos # (Auto) Baso # (Auto) Immature Gran # (Auto) ESR Sodium Potassium Chloride Carbon Dioxide Anion Gap BUN Creatinine Est Cr Clr Drug Dosing eGFR BUN/Creatinine Ratio Glucose POC Glucose 110 H Osmolality 279 L Lactate 0.9 Calcium Total Bilirubin AST ALT Alkaline Phosphatase Total Creatine Kinase Troponin I High Sens 33.6 H C-Reactive Protein B-Natriuretic Peptide 44 Total Protein Albumin Globulin Albumin/Globulin Ratio Procalcitonin TSH Free T4 Free T3 2.15 L Urine Color Urine Appearance Urine pH Ur Specific [place]bury Urine Protein Urine Glucose (UA) Urine Ketones Urine Blood Urine Nitrite Urine Bilirubin Urine Urobilinogen Ur Leukocyte Esterase Urine WBC (Auto) Urine RBC (Auto) U Hyaline Cast (Auto) U Epithel Cells (Auto) Urine Bacteria (Auto) SARS-CoV-2 (PCR) 09/25/24 08:29 WBC RBC Hgb Hct MCV MCH MCHC RDW Std Deviation RDW Coeff of Jocelyn Plt Count MPV Immature Gran % (Auto) Neut % (Auto) Lymph % (Auto) Wright % (Auto) Eos % (Auto) Baso % (Auto) Neut # (Auto) Lymph # (Auto) Wright # (Auto) Eos # (Auto) Baso # (Auto) Immature Gran # (Auto) ESR Sodium Potassium Chloride Carbon Dioxide Anion Gap BUN Creatinine Est Cr Clr Drug Dosing eGFR BUN/Creatinine Ratio Glucose POC Glucose Osmolality Lactate Calcium Total Bilirubin AST ALT Alkaline Phosphatase Total Creatine Kinase Troponin I High Sens C-Reactive Protein B-Natriuretic Peptide Total Protein Albumin Globulin Albumin/Globulin Ratio Procalcitonin TSH Free T4 1.05 Free T3 Urine Color Urine Appearance Urine pH Ur Specific [place] Urine Protein Urine Glucose (UA) Urine Ketones Urine Blood Urine Nitrite Urine Bilirubin Urine Urobilinogen Ur Leukocyte Esterase Urine WBC (Auto) Urine RBC (Auto) U Hyaline Cast (Auto) U Epithel Cells (Auto) Urine Bacteria (Auto) SARS-CoV-2 (PCR) Diagnostic Findings Echocardiogram 07/20/2021: Normal LV systolic function with ejection fraction of 60 to 65%. Mild LVH. No significant valvular heart disease. Chest x-ray 09/24/2024: Mild pulmonary vascular congestion. ECG Additional Comments: Initial EKG demonstrated sinus tachycardia with incomplete right bundle branch block and left anterior fascicular block. Most recent EKG demonstrates atrial fibrillation rapid ventricular response with similar findings. PG Care Time/CCT Total # of Minutes Spent Total Time Spent with Patient: Total time spent is greater than 50% in coordination of care (as documented) at patient's floor/unit and/or counseling patient: Coding Level of Care Code 73983 INT INP/OBS CARE 3/75MIN Diagnoses Atrial fibrillation with rapid ventricular response I48.91
[2024-09-25] MEDS ORDERED: ENOXAPARIN 1 MG/KG SC SCH (11:30)
--- NOTE | 2024-09-25 11:39 | Hospitalist Progress Note ---
Date of Service September 25, 2024 Assessment & Plan (1) Sepsis: Plan: Suspected on admission. Treat underlying cellulitis. Supportive care (2) Atrial fibrillation with rapid ventricular response: Plan: Developed soon after admission. Telemetry. Diltiazem drip. Lovenox 1 mg/kg subcutaneously every 12 hours. Obtain cardiac echo. Cardiology consultation requested. (3) Cellulitis: Plan: Bilateral lower extremity stasis dermatitis with possible cellulitis. He is now on intravenous cefepime and daptomycin, day 2 (4) BPH (benign prostatic hyperplasia): Plan: Urinary retention in the ED required Brown catheter placement (5) DMII (diabetes mellitus, type 2): Plan: Diabetic diet. Sliding scale coverage (6) Chronic venous insufficiency: Plan: Chronic bilateral lower extremity edema and chronic stasis dermatitis (7) Hypokalemia: Plan: IV and oral replacement underway. Serial labs (8) Acute kidney injury: Plan: Brown catheter now in place. Monitor urine output. Serial labs (9) BPH w urinary obs/LUTS: Plan: Urinary retention in the ED required Brown catheter placement. Eventual Brown catheter removal with trial of voiding Plan To be determined by clinical course Admission and Anticipated Discharge Date Admission Date: September 24, 2024 Subjective Alert and oriented fortunately. He developed new onset rapid atrial fibrillation this morning and is now on a Cardizem drip. Thyrotoxicosis has been ruled out. Cardiology consultation requested and completed. Cardiac echo is pending. Lovenox 1 mg/kg subcutaneously every 12 hours has been ordered for now. Chest CTA pending to rule out underlying PE. BNP is fortunately normal. He remains on cefepime and daptomycin for the cellulitis of bilateral lower extremities due to chronic venous insufficiency and underlying stasis dermatitis Physical Exam 2 Physical Exam: General-alert and oriented x3, no fever, no chills HEENT-head atraumatic and normocephalic, pupils equal and reactive to light, extraocular muscles intact Neck-no lymphadenopathy or thyromegaly, trachea midline Chest-clear to auscultation. No rales, wheezing or rhonchi Cardiac-regular rate and rhythm, normal S1 and S2 Abdomen-normal bowel sounds, no hepatosplenomegaly Extremities-bilateral lower extremity edema is chronic due to chronic venous insufficiency with evidence of stasis dermatitis and associated erythema bilateral Neuro-cranial nerves II through XII intact, motor and sensory function within normal limits, strength symmetrical, no focal deficits Psych-normal affect, normal mood Results & Data Results & Data Vital Signs (Past 12 Hours) Vital Signs Temp Pulse Pulse Resp BP Pulse Ox Pulse Ox 09/25/24 10:24 37.2 C 166 H 20 115/62 93 09/25/24 09:53 165 H 108/64 09/25/24 09:25 188 H 104/60 09/25/24 08:00 104 H 09/25/24 08:00 09/25/24 07:17 37.0 C 98 H 19 131/73 95 09/25/24 04:14 36.5 C 93 H 20 115/71 95 09/25/24 00:02 36.8 C 116 H 18 113/61 95 09/24/24 23:59 109 H 09/24/24 23:53 09/24/24 23:53 36.8 C 116 H 22 113/61 95 09/24/24 23:53 09/24/24 23:53 95 O2 Del Method O2 Del Method O2 Flow Rate O2 Flow Rate 09/25/24 10:24 Nasal Cannula 3 09/25/24 09:53 09/25/24 09:25 09/25/24 08:00 09/25/24 08:00 Nasal Cannula 3 09/25/24 07:17 Nasal Cannula 3 09/25/24 04:14 Nasal Cannula 3 09/25/24 00:02 Nasal Cannula 3 09/24/24 23:59 09/24/24 23:53 Nasal Cannula 3 09/24/24 23:53 Nasal Cannula 3 09/24/24 23:53 Nasal Cannula 3 09/24/24 23:53 Nasal Cannula 3 Laboratory Results 09/24/24 18:15 09/24/24 18:15 PG Care Time/CCT Total # of Minutes Spent Total Time Spent with Patient: Total time spent is greater than 50% in coordination of care (as documented) at patient's floor/unit and/or counseling patient: Coding Level of Care Code 20939 SUB INP/OBS CARE 3/50MIN Diagnoses Sepsis A41.9 Atrial fibrillation with rapid ventricular response I48.91 Cellulitis L03.90 Site of cellulitis: unspecified site BPH (benign prostatic hyperplasia) N40.0 DMII (diabetes mellitus, type 2) E11.9 Chronic venous insufficiency I87.2 Hypokalemia E87.6 Acute kidney injury N17.9 BPH w urinary obs/LUTS N40.1; N13.8 (3) Cellulitis Site of cellulitis: unspecified site Qualified Code(s): L03.90 - Cellulitis, unspecified
[2024-09-25] MEDS: OPTIRAY 320 125ml IV ONE (12:05)
--- NOTE | 2024-09-25 12:24 | CT Scan Report ---
CT angio chest PE protocol CT DOSE: 952.12 mGy.cm HISTORY: 74 years-old Male with hypoxia. Acute hypoxia TECHNIQUE: Multiple CTA images of the chest were obtained after the intravenous administration of 117 ml Optiray. Coronal and sagittal MIPS were obtained from the axial data set and were submitted for review. All measurements were obtained according to NASCET criteria. A dose lowering technique was u tilized adhering to the principles of ALARA. COMPARISON: Chest radiograph of same day FINDINGS: CTA: Heart is upper limits of normal in size. Mild coronary artery calcifications. No pericardial effusion or thoracic aortic aneurysm. No pulmonary emboli. CT CHEST: Unremarkable thyroid. There is mild mediastinal and hilar lymphadenopathy including a 2.4 x 1.3 cm ri ght hilar lymph node. No pneumothorax or pleural effusion. Mild to moderate pulmonary emphysema. Depe ndent bibasilar atelectasis. 2.2 a 2.4 x 1.07 m subpleural linear opacity in the posterior right uppe r lobe, image 180 series 4. Mild bibasilar mucous plugging. Exophytic cyst of the superior pole right kidney. No acute fracture. Spondylotic spurring of the spin e. Mild chronic appearing mid thoracic compression deformities. Mild mid thoracic levoscoliosis. IMPRESSION: 1. Unremarkable CTA of the chest. No pulmonary emboli. 2. Dependent bibasilar opacities suggest atelectasis. There is a linear subpleural 2.4 cm opacity in the posterior segment right upper lobe, also likely atelectatic however attention on follow-up recomm ended in order to exclude an underlying pulmonary nodule. 3. Likely reactive mild lymphadenopathy. 4. Emphysema. ACT 112: Negative or not required by law. The above report was generated using voice recognition software. It may contain grammatical, syntax o r spelling errors. Electronically signed by: Saurav Garay M.D. 09/25/2024 12:23 PM
[2024-09-25] MEDS: ENOXAPARIN 150 MG/ML SYR SQ SCH (12:37)
[2024-09-25] MEDS: dilTIAZem HCl 60 MG TAB PO SCH (13:45)
--- NOTE | 2024-09-25 14:27 | Electrocardiogram Report ---
Test Reason : Blood Pressure : */* mmHG Vent. Rate : 121 BPM Atrial Rate : 121 BPM P-R Int : 138 ms QRS Dur : 114 ms QT Int : 340 ms P-R-T Axes : 67 -59 41 degrees QTcB Int : 482 ms Sinus tachycardia with Premature supraventricular complexes Incomplete right bundle branch block Left anterior fascicular block possible Inferior infarct (cited on or before 29-Jul-2022) Abnormal ECG When compared with ECG of 23-May-2023 20:07, Premature supraventricular complexes are now Present Left anterior fascicular block is now Present Confirmed by Tariq Mejía ([id number]) on 09/25/2024 2:26:36 PM Referred By: REFERRED SELF Confirmed By: Tariq Mejía
--- NOTE | 2024-09-25 14:29 | Electrocardiogram Report ---
Test Reason : Blood Pressure : */* mmHG Vent. Rate : 176 BPM Atrial Rate : 25 BPM P-R Int : * ms QRS Dur : 116 ms QT Int : 324 ms P-R-T Axes : * -87 31 degrees QTcB Int : 554 ms Atrial fibrillation Right bundle branch block Left anterior fascicular block Bifascicular block Inferior infarct (cited on or before 29-Jul-2022) Abnormal ECG Confirmed by Tariq Mejía ([id number]) on 09/25/2024 2:28:45 PM Referred By: REFERRED SELF Confirmed By: Tariq Mejía
--- NOTE | 2024-09-25 14:33 | Electrocardiogram Report ---
Test Reason : Blood Pressure : */* mmHG Vent. Rate : 108 BPM Atrial Rate : 108 BPM P-R Int : 162 ms QRS Dur : 122 ms QT Int : 356 ms P-R-T Axes : 68 -18 48 degrees QTcB Int : 477 ms Sinus tachycardia Right bundle branch block Possible Inferior infarct (cited on or before 29-Jul-2022) Abnormal ECG When compared with ECG of 25-Sep-2024 08:22, (unconfirmed) Left anterior fascicular block is no longer Present ST no longer depressed in Anterior leads Confirmed by Tariq Mejía ([id number]) on 09/25/2024 2:32:37 PM Referred By: REFERRED SELF Confirmed By: Tariq Mejía
--- NOTE | 2024-09-25 16:32 | XCELERA ---
[id number]
[2024-09-25] MEDS: DAPTOmycin 700 MG in SYRINGE 0 ML IV SCH (21:25)
[2024-09-26 06:19] LABS: Hematocrit (blood only) 38.2 % (42.0-52.0); Hemoglobin 12.5 g/dl (14.0-18.0); Mean Corpuscular Hemoglobin 28.7 pg (25.0-34.0); Mean Corpuscular Hgb Conc 32.7 g/dL (32.0-36.0); Mean Corpuscular Volume 87.8 fL (80.0-100.0); Mean Platelet Volume 9.4 fL (9.4-12.4); Platelet Count 180 K/uL (130-400); RDW Coefficient of Variation 14.7 % (11.5-14.5); RDW Standard Deviation 47.7 fL (36.4-46.3); Red Blood Count 4.35 M/uL (4.70-6.10); White Blood Count 13.09 K/ul (4.8-10.8)
[2024-09-26 06:43] LABS: BUN Creatinine Ratio 13.2 (10-20); Calcium 7.6 mg/dl (8.6-10.3); Creatinine Clr Calc Pharmacy 84.4 ml/min; Potassium 3.4 mmol/L (3.5-5.1)
[2024-09-26] MEDS: POTASSIUM CHLORIDE CRTAB 20 MEQ TABCR PO STA (09:31)
--- NOTE | 2024-09-26 10:45 | Cardiology Progress Note ---
Date of Service September 26, 2024 Assessment & Plan (1) Atrial fibrillation with rapid ventricular response: Plan 1. Atrial fibrillation: First documented episode. He converted spontaneously. Unclear if his been having occult episodes at home as he was not aware of the arrhythmia. I would agree with initial attempts at aggressive rate control. Currently taking diltiazem 60 mg 3 times daily. I think we can increase this to 4 times daily monitoring his blood pressure. Will try to get him to take the highest dose possible when leaving as he had significantly elevated ventricular rates when in A-fib. Systemic anticoagulation currently with Lovenox. Transition to apixaban 5 mg twice daily prior to discharge. 2. Elevated troponin: Very mild elevation. This is in the setting of acute illness. Do not think this is guest experience representative of acute coronary syndrome or severe coronary disease. I do not think he requires an additional evaluation in this regard. Admission and Anticipated Discharge Date Admission Date: September 24, 2024 Subjective This morning patient clinically feeling well. No pain in the legs. No breathing difficulty. No sense of palpitation. Review of Systems Review of Systems: Per HPI Physical Exam Physical Exam: The patient is alert and oriented. Mood and affect appeared normal. He answered all questions appropriately. Morbidly obese HEENT: Pupils are equal and reactive to light and accommodation. Extraocular movements are intact. The sclerae are anicteric. Neuro: Cranial nerves intact Lungs: Poor air movement overall. Normal respiratory effort. No rales. No expiratory wheezing. Cardiac: Heart demonstrates an regular rhythm and normal rate. Normal S1 and S2. No murmurs on examination. Pulses: The patient has palpable radial pulses bilaterally that are equal in intensity Extremities: There was no evidence of hypoperfusion. There is no cyanosis or clubbing. Severe edema of the lower extremities. Trophic changes with cellulitis and skin lesions. Skin: I did not appreciate any rashes on examination today. Results & Data Vital Signs (Past 12 Hours) Vital Signs Temp Pulse Pulse Resp BP Pulse Ox O2 Del Method 09/26/24 08:00 86 09/26/24 08:00 Nasal Cannula 09/26/24 07:57 36.7 C 79 20 122/73 91 Nasal Cannula 09/26/24 03:41 36.5 C 89 19 126/71 91 Nasal Cannula 09/26/24 00:00 87 09/25/24 23:33 36.9 C 94 H 18 120/68 92 Nasal Cannula O2 Flow Rate 04/19/25 08:00 09/26/24 08:00 3 09/26/24 07:57 3 09/26/24 03:41 3 09/26/24 00:00 09/25/24 23:33 3 Laboratory Results Abnormal Lab Results 09/25/24 09/25/24 09/25/24 11:37 16:27 20:51 WBC RBC Hgb Hct MCV MCH MCHC RDW Std Deviation RDW Coeff of Jocelyn Plt Count MPV Sodium Potassium Chloride Carbon Dioxide Anion Gap BUN Creatinine Est Cr Clr Drug Dosing eGFR BUN/Creatinine Ratio Glucose POC Glucose 121 H 125 H 114 H Calcium 09/26/24 09/26/24 05:34 07:42 WBC 13.09 H RBC 4.35 L Hgb 12.5 L Hct 38.2 L MCV 87.8 MCH 28.7 MCHC 32.7 RDW Std Deviation 47.7 H RDW Coeff of Jocelyn 14.7 H Plt Count 180 MPV 9.4 Sodium 139 Potassium 3.4 L Chloride 106 Carbon Dioxide 26 Anion Gap 7 BUN 14 Creatinine 1.06 D Est Cr Clr Drug Dosing 84.4 eGFR 73.19 BUN/Creatinine Ratio 13.2 Glucose 109 H POC Glucose 112 H Calcium 7.6 L PG Care Time/CCT Total # of Minutes Spent Total Time Spent with Patient: Total time spent is greater than 50% in coordination of care (as documented) at patient's floor/unit and/or counseling patient: Coding Level of Care Code 99308 SUB INP/OBS CARE 2/35MIN Diagnoses Atrial fibrillation with rapid ventricular response I48.91
--- NOTE | 2024-09-26 11:50 | Hospitalist Progress Note ---
Date of Service September 26, 2024 Assessment & Plan (1) Sepsis: Plan: Suspected on admission. Now resolved. Treat underlying cellulitis. Supportive care (2) Atrial fibrillation with rapid ventricular response: Plan: Developed soon after admission. He has converted to normal sinus rhythm and diltiazem drip has been switched to oral diltiazem. Dosage frequency was uptitrated today, September 26, by cardiology. He will be switched to the CD long- acting formulation tomorrow, September 27. He is currently on Lovenox 1 mg/kg subcutaneously every 12 hours and this will be switched to Eliquis 5 mg twice a day tomorrow, September 27. Cardiac echo reveals normal ejection fraction. (3) Cellulitis: Plan: Bilateral lower extremity stasis dermatitis with possible cellulitis. He is now on intravenous cefepime and daptomycin, day 3 (4) BPH (benign prostatic hyperplasia): Plan: Urinary retention in the ED required Brown catheter placement (5) DMII (diabetes mellitus, type 2): Plan: Diabetic diet. Sliding scale coverage (6) Chronic venous insufficiency: Plan: Chronic bilateral lower extremity edema and chronic stasis dermatitis (7) Hypokalemia: Plan: Potassium level improved but still mildly low. Repeat oral replacement again today, September 26. Serial labs (8) Acute kidney injury: Plan: Now resolved. Brown catheter now in place. Monitor urine output. Serial labs (9) BPH w urinary obs/LUTS: Plan: Urinary retention in the ED required Brown catheter placement. Eventual Brown catheter removal with trial of voiding Plan Hopeful discharge to home sometime next week Admission and Anticipated Discharge Date Admission Date: September 24, 2024 Subjective Alert and oriented. Asymptomatic. He converted from atrial fibrillation to normal sinus rhythm. Cardiology consultation and recommendations appreciated. Diltiazem has been uptitrated to 4 times daily dosing. He will be switched to a CD formulation tomorrow, September 26. He is currently on Lovenox which will be switched to Eliquis tomorrow per cardiology recommendations. His legs look about the same. He remains on cefepime and daptomycin for suspected cellulitis, day 3. White blood cell count has down trended. Potassium has improved to 3.4 and another oral dose was administered today, September 26. Remains on supplemental oxygen at 3 L/min. He does not appear to be in overt CHF per clinical exam and his BNP is only 44. Creatinine has improved from 1.5 down to 1.0 which is at his baseline. Review of Systems 2 Review of Systems: Constitutionalno fever or chills ENTno blurred vision, no double vision, no epistaxis, no sore throat Respiratoryno cough, no wheezing, no shortness of breath Cardiacno palpitations, no chest pain, no syncope Jose J nausea, vomiting, diarrhea, melena, hematochezia GUno urinary retention, no urinary incontinence, no dysuria, no hematuria Musculoskeletalno joint pain, no muscle tenderness. 1-2+ pitting edema bilateral lower extremities below the knees Skinchronic appearing stasis dermatitis bilateral lower extremities below the knees with significant erythema. Neurono isolated weakness, no paresthesia, no weakness Psychno depression, no anxiety Physical Exam 2 Physical Exam: General-alert and oriented x3, no fever, no chills HEENT-head atraumatic and normocephalic, pupils equal and reactive to light, extraocular muscles intact Neck-no lymphadenopathy or thyromegaly, trachea midline Chest-clear to auscultation. No rales, wheezing or rhonchi Cardiac-regular rate and rhythm, normal S1 and S2 Abdomen-normal bowel sounds, no hepatosplenomegaly Extremities-bilateral lower extremity edema is chronic due to chronic venous insufficiency with evidence of stasis dermatitis and associated erythema bilateral. Appears unchanged Neuro-cranial nerves II through XII intact, motor and sensory function within normal limits, strength symmetrical, no focal deficits Psych-normal affect, normal mood Results & Data Results & Data Vital Signs (Past 12 Hours) Vital Signs Temp Pulse Pulse Resp BP Pulse Ox O2 Del Method 09/26/24 08:00 86 09/26/24 08:00 Nasal Cannula 09/26/24 07:57 36.7 C 79 20 122/73 91 Nasal Cannula 09/26/24 03:41 36.5 C 89 19 126/71 91 Nasal Cannula 09/26/24 00:00 87 O2 Flow Rate 09/26/24 08:00 09/26/24 08:00 3 09/26/24 07:57 3 09/26/24 03:41 3 09/26/24 00:00 Laboratory Results 09/26/24 05:34 09/26/24 05:34 PG Care Time/CCT Total # of Minutes Spent Total Time Spent with Patient: Total time spent is greater than 50% in coordination of care (as documented) at patient's floor/unit and/or counseling patient: Coding Level of Care Code 24063 SUB INP/OBS CARE 3/50MIN Diagnoses Sepsis A41.9 Atrial fibrillation with rapid ventricular response I48.91 Cellulitis L03.90 Site of cellulitis: unspecified site BPH (benign prostatic hyperplasia) N40.0 DMII (diabetes mellitus, type 2) E11.9 Chronic venous insufficiency I87.2 Hypokalemia E87.6 Acute kidney injury N17.9 BPH w urinary obs/LUTS N40.1; N13.8 (3) Cellulitis Site of cellulitis: unspecified site Qualified Code(s): L03.90 - Cellulitis, unspecified
[2024-09-26] MEDS: dilTIAZem HCl 60 MG TAB PO SCH (12:22)
[2024-09-26 14:03] LABS: Adenovirus F 40/41 PCR Not Detected (NotDetected); Astrovirus PCR Not Detected (NotDetected); Campylobacter PCR Not Detected (NotDetected); Cryptosporidium PCR Not Detected (NotDetected); Cyclospora cayetanensis PCR Not Detected (NotDetected); Entamoeba histolytica PCR Not Detected (NotDetected); Enteroaggregative E.coli(EAEC) Not Detected (NotDetected); Enteropathogenic E.coli (EPEC) Not Detected (NotDetected); Enterotoxigenic E.coli (ETEC) Not Detected (NotDetected); Giardia lamblia PCR Not Detected (NotDetected); Norovirus GI/GII PCR Not Detected (NotDetected); Plesiomonas shigelloides PCR Not Detected (NotDetected); Rotavirus A PCR Not Detected (NotDetected); Salmonella PCR Not Detected (NotDetected); Sapovirus PCR Not Detected (NotDetected); Shiga-like Toxin E.coli (STEC) Not Detected (NotDetected); Shigella/Enteroinvasive E.coli Not Detected (NotDetected); Vibrio cholerae PCR Not Detected (NotDetected); Vibrio species PCR Not Detected (NotDetected); Yersinia enterocolitica PCR Not Detected (NotDetected)
[2024-09-26] MEDS: CEFEPIME 2000MG 2,000 MG/20 ML SYR IV SCH (15:34)
[2024-09-27] MEDS: dilTIAZem HCL 300 MG CAPCR PO SCH (08:30)
[2024-09-27 08:40] LABS: Basophils # (auto) 0.04 K/uL (0.00-0.20); Basophils % (auto) 0.4 %; Eosinophils # (auto) 0.42 K/uL (0.00-0.50); Eosinophils % (auto) 4.1 %; Hematocrit (blood only) 38.2 % (42.0-52.0); Hemoglobin 12.5 g/dl (14.0-18.0); Immature Granulocytes # (auto) 0.08 K/uL (0.01-0.20); Immature Granulocytes % (auto) 0.8 %; Lymphocytes # (auto) 1.76 K/uL (1.20-3.40); Lymphocytes % (auto) 17.3 %; Mean Corpuscular Hemoglobin 28.5 pg (25.0-34.0); Mean Corpuscular Hgb Conc 32.7 g/dL (32.0-36.0); Mean Corpuscular Volume 87.2 fL (80.0-100.0); Mean Platelet Volume 9.3 fL (9.4-12.4); Monocytes # (auto) 1.23 K/uL (0.11-0.59); Monocytes % (auto) 12.1 %; Neutrophils # (auto) 6.66 K/uL (1.40-6.50); Neutrophils % (auto) 65.3 %; Platelet Count 188 K/uL (130-400); RDW Coefficient of Variation 14.7 % (11.5-14.5); RDW Standard Deviation 47.1 fL (36.4-46.3); Red Blood Count 4.38 M/uL (4.70-6.10); White Blood Count 10.19 K/ul (4.8-10.8)
[2024-09-27 08:48] LABS: BUN Creatinine Ratio 10.6 (10-20); Calcium 8.1 mg/dl (8.6-10.3); Creatinine Clr Calc Pharmacy 105.3 ml/min; Potassium 3.6 mmol/L (3.5-5.1)
--- NOTE | 2024-09-27 10:15 | Cardiology Progress Note ---
Date of Service September 27, 2024 Assessment & Plan (1) Atrial fibrillation with rapid ventricular response: Plan 1. Atrial fibrillation: No recurrence. Switch to daily dose of diltiazem which seems adequate. Blood pressures normal. He can be transition to Eliquis 5 mg twice daily at any time. He can follow-up in our clinic on a routine basis subsequent to discharge. 2. Elevated troponin: Very mild elevation. This is in the setting of acute illness. Do not think this is apprenticeship representative of acute coronary syndrome or severe coronary disease. I do not think he requires an additional evaluation in this regard. Cardiology will sign off at this time. Please contact the on-call [facility] train gate attendant for any additional questions or concerns during this hospitalization. Thank you Admission and Anticipated Discharge Date Admission Date: September 24, 2024 Subjective This morning patient clinically feeling well. Did not report any specific pain. No pain in the legs. No breathing difficulty. No sense of palpitation. No dizziness or lightheadedness. Review of Systems Review of Systems: Per HPI Physical Exam Physical Exam: The patient is alert and oriented. Mood and affect appeared normal. He answered all questions appropriately. Morbidly obese HEENT: Pupils are equal and reactive to light and accommodation. Extraocular movements are intact. The sclerae are anicteric. Neuro: Cranial nerves intact Lungs: Poor air movement overall. Normal respiratory effort. No rales. No expiratory wheezing. Cardiac: Heart demonstrates a regular rhythm and normal rate. Normal S1 and S2. No murmurs on examination. Pulses: The patient has palpable radial pulses bilaterally that are equal in intensity Extremities: There was no evidence of hypoperfusion. There is no cyanosis or clubbing. Severe edema of the lower extremities. Trophic changes with cellulitis and skin lesions. Skin: I did not appreciate any rashes on examination today. Results & Data Vital Signs (Past 12 Hours) Vital Signs Temp Pulse Pulse Resp BP Pulse Ox Pulse Ox 09/27/24 09:44 79 09/27/24 09:44 09/27/24 07:20 36.5 C 78 18 130/69 92 09/27/24 03:55 36.5 C 83 19 123/68 93 09/27/24 00:02 36.6 C 88 21 119/65 94 09/26/24 23:46 85 09/26/24 23:00 95 O2 Del Method O2 Del Method O2 Flow Rate O2 Flow Rate 09/27/24 09:44 09/27/24 09:44 Nasal Cannula 3 09/27/24 07:20 Room Air 09/27/24 03:55 Nasal Cannula 3 09/27/24 00:02 Nasal Cannula 3 09/26/24 23:46 09/26/24 23:00 Nasal Cannula 3 Laboratory Results Abnormal Lab Results 09/26/24 09/26/24 09/26/24 11:42 11:55 16:27 WBC RBC Hgb Hct MCV MCH MCHC RDW Std Deviation RDW Coeff of Jocelyn Plt Count MPV Immature Gran % (Auto) Neut % (Auto) Lymph % (Auto) Haakon % (Auto) Eos % (Auto) Baso % (Auto) Neut # (Auto) Lymph # (Auto) Haakon # (Auto) Eos # (Auto) Baso # (Auto) Immature Gran # (Auto) Sodium Potassium Chloride Carbon Dioxide Anion Gap BUN Creatinine Est Cr Clr Drug Dosing eGFR BUN/Creatinine Ratio Glucose POC Glucose 118 H 109 H Calcium Stl C. cayetanensis PCR Not Detected Stool Rotavirus A PCR Not Detected Stl Adenov F 40/41 PCR Not Detected Stool Astrovirus (PCR) Not Detected Stool Campylobacter PCR Not Detected Stl C. diff Tox B Gene Negative Cdiff Gene Stool Cryptosporidium PCR Not Detected Stl E.coli Shiga Tox PCR Not Detected Stl Enterotoxigenic E PCR Not Detected Stool EPEC (PCR) Not Detected Stool EAEC (PCR) Not Detected Stl E. histolytica PCR Not Detected Stool Giardia Lamblia PCR Not Detected Stool Salmonella PCR Not Detected Stool Sapovirus (PCR) Not Detected Stl P. shigelloides PCR Not Detected Stl Shigella/EIEC PCR Not Detected St Y.enterocolitica PCR Not Detected Stool Vibrio (PCR) Not Detected Stl Vibrio cholerae PCR Not Detected Stl Norovirus GI/GII PCR Not Detected 09/26/24 09/27/24 09/27/24 20:38 07:21 08:10 WBC 10.19 RBC 4.38 L Hgb 12.5 L Hct 38.2 L MCV 87.2 MCH 28.5 MCHC 32.7 RDW Std Deviation 47.1 H RDW Coeff of Jocelyn 14.7 H Plt Count 188 MPV 9.3 L Immature Gran % (Auto) 0.8 Neut % (Auto) 65.3 Lymph % (Auto) 17.3 Haakon % (Auto) 12.1 Eos % (Auto) 4.1 Baso % (Auto) 0.4 Neut # (Auto) 6.66 H Lymph # (Auto) 1.76 Haakon # (Auto) 1.23 H Eos # (Auto) 0.42 Baso # (Auto) 0.04 Immature Gran # (Auto) 0.08 Sodium 138 Potassium 3.6 Chloride 106 Carbon Dioxide 25 Anion Gap 7 BUN 9 Creatinine 0.85 Est Cr Clr Drug Dosing 105.3 eGFR 90.62 BUN/Creatinine Ratio 10.6 Glucose 129 H POC Glucose 116 H 98 Calcium 8.1 L Stl C. cayetanensis PCR Stool Rotavirus A PCR Stl Adenov F 40/41 PCR Stool Astrovirus (PCR) Stool Campylobacter PCR Stl C. diff Tox B Gene Stool Cryptosporidium PCR Stl E.coli Shiga Tox PCR Stl Enterotoxigenic E PCR Stool EPEC (PCR) Stool EAEC (PCR) Stl E. histolytica PCR Stool Giardia Lamblia PCR Stool Salmonella PCR Stool Sapovirus (PCR) Stl P. shigelloides PCR Stl Shigella/EIEC PCR St Y.enterocolitica PCR Stool Vibrio (PCR) Stl Vibrio cholerae PCR Stl Norovirus GI/GII PCR PG Care Time/CCT Total # of Minutes Spent Total Time Spent with Patient: Total time spent is greater than 50% in coordination of care (as documented) at patient's floor/unit and/or counseling patient: Coding Level of Care Code 11058 SUB INP/OBS CARE 2/35MIN Diagnoses Atrial fibrillation with rapid ventricular response I48.91
--- NOTE | 2024-09-27 10:42 | Hospitalist Progress Note ---
Date of Service September 27, 2024 Assessment & Plan (1) Sepsis: Plan: Suspected on admission. Now resolved. Treat underlying cellulitis. Supportive care (2) Atrial fibrillation with rapid ventricular response: Plan: Developed soon after admission. He has converted to normal sinus rhythm and diltiazem drip has been switched to oral diltiazem. He was switched from short acting formulation to long-acting diltiazem CD today, September 27. Lovenox has been switched to Eliquis. Cardiac echo reveals normal ejection fraction. (3) Cellulitis: Plan: Bilateral lower extremity stasis dermatitis with possible cellulitis. He is now on intravenous cefepime and daptomycin, day 4. Improving (4) BPH (benign prostatic hyperplasia): Plan: Urinary retention in the ED required Brown catheter placement. Brown catheter will be removed today, September 27, with trial of voiding (5) DMII (diabetes mellitus, type 2): Plan: Diabetic diet. Sliding scale coverage. Controlled (6) Chronic venous insufficiency: Plan: Chronic bilateral lower extremity edema and chronic stasis dermatitis (7) Hypokalemia: Plan: Potassium level has normalized. Serial labs (8) Acute kidney injury: Plan: Now resolved. Brown catheter will be removed today, September 27, with a trial of voiding. Monitor urine output. Serial labs (9) BPH w urinary obs/LUTS: Plan: Urinary retention in the ED required Brown catheter placement. Brown catheter will be removed today, September 27, with a trial of voiding Plan Hopeful discharge to home sometime this coming week Admission and Anticipated Discharge Date Admission Date: September 24, 2024 Subjective Alert and oriented. Short acting diltiazem switched to CD formulation today, September 27. He remains in normal sinus rhythm. Bilateral lower extremity erythema appears to be resolving. White blood cell count is trending downward. Will remove Brown catheter today, September 27, for a trial of voiding. The Brown catheter was placed on admission in the ED. He has known BPH with LUTS. Mild hypokalemia has been corrected to 3.6 Review of Systems 2 Review of Systems: Constitutionalno fever or chills ENTno blurred vision, no double vision, no epistaxis, no sore throat Respiratoryno cough, no wheezing, no shortness of breath Cardiacno palpitations, no chest pain, no syncope Jose J nausea, vomiting, diarrhea, melena, hematochezia GUFoley catheter remains in place. No hematuria. Musculoskeletalno joint pain, no muscle tenderness. 1-2+ pitting edema bilateral lower extremities below the knees Skinchronic appearing stasis dermatitis bilateral lower extremities below the knees with improving erythema. Neurono isolated weakness, no paresthesia, no weakness Psychno depression, no anxiety Physical Exam 2 Physical Exam: General-alert and oriented x3, no fever, no chills HEENT-head atraumatic and normocephalic, pupils equal and reactive to light, extraocular muscles intact Neck-no lymphadenopathy or thyromegaly, trachea midline Chest-clear to auscultation. No rales, wheezing or rhonchi Cardiac-regular rate and rhythm, normal S1 and S2 Abdomen-normal bowel sounds, no hepatosplenomegaly GUFoley catheter remains in place. No hematuria Extremities-bilateral lower extremity edema is chronic due to chronic venous insufficiency with evidence of stasis dermatitis and associated erythema bilaterally which appears to be improving Neuro-cranial nerves II through XII intact, motor and sensory function within normal limits, strength symmetrical, no focal deficits Psych-normal affect, normal mood Results & Data Results & Data Vital Signs (Past 12 Hours) Vital Signs Temp Pulse Pulse Resp BP Pulse Ox Pulse Ox 09/27/24 09:44 79 09/27/24 09:44 09/27/24 07:20 36.5 C 78 18 130/69 92 09/27/24 03:55 36.5 C 83 19 123/68 93 09/27/24 00:02 36.6 C 88 21 119/65 94 09/26/24 23:46 85 09/26/24 23:00 95 O2 Del Method O2 Del Method O2 Flow Rate O2 Flow Rate 09/27/24 09:44 09/27/24 09:44 Nasal Cannula 3 09/27/24 07:20 Room Air 09/27/24 03:55 Nasal Cannula 3 09/27/24 00:02 Nasal Cannula 3 09/26/24 23:46 09/26/24 23:00 Nasal Cannula 3 Laboratory Results 09/27/24 08:10 09/27/24 08:10 PG Care Time/CCT Total # of Minutes Spent Total Time Spent with Patient: Total time spent is greater than 50% in coordination of care (as documented) at patient's floor/unit and/or counseling patient: Coding Level of Care Code 37116 SUB INP/OBS CARE 350MIN Diagnoses Sepsis A41.9 Atrial fibrillation with rapid ventricular response I48.91 Cellulitis L03.90 Site of cellulitis: unspecified site BPH (benign prostatic hyperplasia) N40.0 DMII (diabetes mellitus, type 2) E11.9 Chronic venous insufficiency I87.2 Hypokalemia E87.6 Acute kidney injury N17.9 BPH w urinary obs/LUTS N40.1; N13.8 (3) Cellulitis Site of cellulitis: unspecified site Qualified Code(s): L03.90 - Cellulitis, unspecified
[2024-09-27] MEDS: APIXABAN 5 MG TABLET PO SCH (21:28)
[2024-09-28 02:59] LABS: Appearance Urine Cloudy (Clear); Bacteria Urine Automated None Seen (None Seen); Bilirubin Urine Negative (Negative); Blood Urine 3+ (Negative); Cast Urine Automated 0-2 /lpf (0-2); Color Urine Yellow; Epithelial Cell Urine Auto 0-2 /hpf (0-2); Glucose Urine UA Negative (Negative); Ketones Urine 1+ (Negative); Leukocyte Esterase Urine Trace (Negative); Nitrite Urine Negative (Negative); Protein Urine 2+ (Negative); RBC Urine Automated >20 /hpf (0-2); Urobilinogen Urine Negative (Negative); WBC Urine Automated 0-5 /hpf (0-5)
[2024-09-28 06:05] LABS: Basophils # (auto) 0.04 K/uL (0.00-0.20); Basophils % (auto) 0.4 %; Eosinophils # (auto) 0.51 K/uL (0.00-0.50); Eosinophils % (auto) 5.3 %; Hematocrit (blood only) 37.1 % (42.0-52.0); Hemoglobin 11.8 g/dl (14.0-18.0); Immature Granulocytes # (auto) 0.09 K/uL (0.01-0.20); Immature Granulocytes % (auto) 0.9 %; Lymphocytes # (auto) 1.45 K/uL (1.20-3.40); Lymphocytes % (auto) 14.9 %; Mean Corpuscular Hgb Conc 31.8 g/dL (32.0-36.0); Mean Corpuscular Volume 88.1 fL (80.0-100.0); Monocytes # (auto) 1.33 K/uL (0.11-0.59); Monocytes % (auto) 13.7 %; Neutrophils # (auto) 6.29 K/uL (1.40-6.50); Neutrophils % (auto) 64.8 %; Platelet Count 175 K/uL (130-400); RDW Coefficient of Variation 14.7 % (11.5-14.5); RDW Standard Deviation 47.9 fL (36.4-46.3); Red Blood Count 4.21 M/uL (4.70-6.10); White Blood Count 9.71 K/ul (4.8-10.8)
[2024-09-28 06:23] LABS: BUN Creatinine Ratio 10.2 (10-20); Potassium 3.6 mmol/L (3.5-5.1)
[2024-09-28] MEDS: FUROSEMIDE 20 MG TAB PO SCH (10:57)
--- NOTE | 2024-09-28 13:02 | Hospitalist Progress Note ---
Date of Service September 28, 2024 Assessment & Plan (1) Sepsis: (2) Atrial fibrillation with rapid ventricular response: (3) Cellulitis: (4) Pneumonia: Plan This patient is a 74-year-old male with a history of chronic venous insufficiency, DM2, BPH, COPD/asthma, HTN, GERD, HLD, depression, who presents to the hospital with cough, weakness, a fall, and chills. Found to have sepsis with suspected cellulitis of the legs but more likely with pneumonia. Went into new onset rapid atrial fibrillation during this admission as well which spontaneously converted to sinus rhythm. #Sepsis/Pneumonia/Abnormal CT Chest/pneumonia: With leukocytosis 21, lactate 3. 1, hypoxemia, procalcitonin mildly elevated 0.5, and abnormal CXR with mild pulmonary vascular congestion and abnormal chest CTA showing mild mediastinal and hilar VILA likely reactive, dependent bibasilar atelectasis, and 2.2 x 2.4 x 1.0 cm subpleural linear opacity posterior RUL, mild bibasilar mucous plugging- exclude underlying pulmonary nodule. Seems more likely with pneumonia versus bronchitis as source of sepsis rather than cellulitis as he has chronic venous stasis changes. Nonetheless, he has been on cefepime and daptomycin and has had improvement. - Convert daptomycin to doxycycline for better pulmonary coverage as well as coverage for cellulitis - Continue cefepime - Add Xopenex scheduled nebs for ongoing wheezing and hypoxemia -Needs repeat chest CT in 2 to 3 months to ensure resolution of abnormal findings -Follow blood cultures-remain no growth to date #Atrial fibrillation with rapid ventricular response: Developed soon after admission and was quite rapid almost in the 200s for heart rate but patient was asymptomatic. He spontaneously converted to NSR and diltiazem drip has been switched to oral diltiazem. Echo with preserved EF. Tolerating anticoagulation well without evidence of bleeding -Appreciate cardiology consultation - Continue diltiazem CD 300 mg daily - Started Eliquis 5 Mg p.o. twice daily-[place] check with case management - Follow CBC, BMP, magnesium and replace electrolytes as needed to keep optimal - Follow on telemetry #Cellulitis/Chronic venous insufficiency: Bilateral lower extremity stasis dermatitis with possible cellulitis. He has been on antibiotics and legs appear the same as per patient Doubt he ever actually had cellulitis. Echo with borderline dilated RV with normal function and poorly visualized tricuspid valve and left atrium - Supportive care, resume home Lasix low-dose #BPH (benign prostatic hyperplasia): Urinary retention in the ED required Brown catheter placement. Brown catheter will be removed today, September 27, with trial of voiding #COPD/asthma/acute respiratory failure with hypoxemia-continues to be requiring 3 LNC O2 and not on O2 at baseline. Likely secondary to COPD as well as pneumonia/bronchitis - Add scheduled Xopenex nebs - Continue supplemental O2 to keep pulse ox greater than 90% - Adding doxycycline for pulmonary coverage, continue cefepime - Check 2 step walk test although patient cannot walk but will assess needs at rest and with his maximum amount of exertion prior to discharge -Resume home Lasix 20 Mg p.o. once daily #DMII-he has required very minimal insulin and is on metformin at home. HgbA1c well-controlled at 6.0% Diabetic diet. Sliding scale coverage. Controlled - Resume metformin on discharge #HLD-simvastatin on hold while on daptomycin - Discontinue daptomycin and can resume simvastatin #Depression-not currently on medications #COBY/Hypokalemia: Potassium level has normalized. COBY Now resolved. Brown cat heter removed and passed a trial of void - Follow BMP DVT Proph-Eliquis Dispo-continued stay in PCU, possible discharge to home tomorrow, awaiting PT/OT evaluations Admission and Anticipated Discharge Date Admission Date: September 24, 2024 Subjective Patient reports feeling better. He reports his legs look the same as they always do and he never thought they were infected. He still has a cough. Telemetry with normal sinus rhythm with rates in the 60s Physical Exam Constitutional: WD/WN, vitals as above Respiratory: normal respiratory effort and + cough Auscultation: + crackles (At bases) and + wheezes (Bilateral middle lung johnson); no rhonchi Cardiovascular: Rate/Rhythm: regular rate and regular rhythm Extremities: + edema (Chronic woody 3+ edema with venous stasis dermatitis) Gastrointestinal (Abdomen): normal bowel sounds, soft, nontender, no hepatosplenomegaly Psychiatric: A+Ox3, euthymic affect Results & Data Results & Data Vital Signs (Past 12 Hours) Vital Signs Temp Pulse Pulse Resp BP Pulse Ox O2 Del Method 09/28/24 10:34 36.4 C L 70 122/59 L 93 Nasal Cannula 09/28/24 07:16 68 09/28/24 07:16 Nasal Cannula 09/28/24 07:00 36.6 C 77 14 135/68 94 Nasal Cannula 09/28/24 04:48 36.5 C 80 20 127/69 95 Nasal Cannula O2 Flow Rate 09/28/24 10:34 2 09/28/24 07:16 09/28/24 07:16 2 09/28/24 07:00 2 09/28/24 04:48 3 Laboratory Results CBC, BMP, blood cultures reviewed PG Care Time/CCT Total # of Minutes Spent Total Time Spent with Patient: Total time spent is greater than 50% in coordination of care (as documented) at patient's floor/unit and/or counseling patient: Coding Level of Care Code 96236 SUB INP/OBS CARE 3/50MIN Diagnoses Sepsis A41.9 Atrial fibrillation with rapid ventricular response I48.91 Cellulitis L03.90 Site of cellulitis: unspecified site Pneumonia J18.9 Laterality: bilateral Lung location: unspecified part of lung Pneumonia type: due to unspecified organism (3) Cellulitis Site of cellulitis: unspecified site Qualified Code(s): L03.90 - Cellulitis, unspecified (4) Pneumonia Laterality: bilateral Lung location: unspecified part of lung Pneumonia type: due to unspecified organism Qualified Code(s): J18.9 - Pneumonia, unspecified organism
[2024-09-28] MEDS: DOXYCYCLINE HYCLATE 100 MG CAP PO SCH (13:35)
[2024-09-28] MEDS: LEVALBUTEROL HCL 0.63 MG/3 ML NEB NEB SCH (13:45)
[2024-09-29 06:25] LABS: BUN Creatinine Ratio 10.7 (10-20); Calcium 8.1 mg/dl (8.6-10.3); Creatinine Clr Calc Pharmacy 106.1 ml/min; Potassium 3.4 mmol/L (3.5-5.1)
[2024-09-29 06:27] LABS: Basophils # (auto) 0.05 K/uL (0.00-0.20); Basophils % (auto) 0.5 %; Eosinophils # (auto) 0.54 K/uL (0.00-0.50); Eosinophils % (auto) 5.3 %; Hemoglobin 12.3 g/dl (14.0-18.0); Immature Granulocytes # (auto) 0.14 K/uL (0.01-0.20); Immature Granulocytes % (auto) 1.4 %; Lymphocytes % (auto) 15.8 %; Mean Corpuscular Hemoglobin 28.5 pg (25.0-34.0); Mean Corpuscular Hgb Conc 32.4 g/dL (32.0-36.0); Mean Platelet Volume 9.3 fL (9.4-12.4); Monocytes # (auto) 1.25 K/uL (0.11-0.59); Monocytes % (auto) 12.3 %; Neutrophils # (auto) 6.57 K/uL (1.40-6.50); Neutrophils % (auto) 64.7 %; Platelet Count 218 K/uL (130-400); RDW Coefficient of Variation 14.6 % (11.5-14.5); RDW Standard Deviation 47.5 fL (36.4-46.3); Red Blood Count 4.32 M/uL (4.70-6.10); White Blood Count 10.15 K/ul (4.8-10.8)
[2024-09-29] MEDS: POTASSIUM CHLORIDE CRTAB 20 MEQ TABCR PO STA (08:56)
--- NOTE | 2024-09-29 09:44 | Discharge Summary ---
Discharge Summary Date of Service September 29, 2024 Principal Dx & Hospital Course #1 = Principal Diagnosis (1) Sepsis: (2) Atrial fibrillation with rapid ventricular response: (3) Cellulitis: (4) Pneumonia: Plan This patient is a 74-year-old male with a history of chronic venous insufficiency, DM2, BPH, COPD/asthma, HTN, GERD, HLD, depression, who presents to the hospital with cough, weakness, a fall, and chills. Found to have sepsis with suspected cellulitis of the legs but more likely with pneumonia. Went into new onset rapid atrial fibrillation during this admission as well which spontaneously converted to sinus rhythm. #Sepsis/Pneumonia/Abnormal CT Chest/pneumonia: With leukocytosis 21, lactate 3.1, hypoxemia, procalcitonin mildly elevated 0.5, and abnormal CXR with mild pulmonary vascular congestion and abnormal chest CTA showing mild mediastinal and hilar VILA likely reactive, dependent bibasilar atelectasis, and 2.2 x 2.4 x 1.0 cm subpleural linear opacity posterior RUL, mild bibasilar mucous plugging- exclude underlying pulmonary nodule. Seems more likely with pneumonia versus bronchitis as source of sepsis rather than cellulitis as he has chronic venous stasis changes. Nonetheless, he has been on cefepime and daptomycin and has had improvement. Still with some wheezing on day of discharge but weaned off O2 at rest and feeling better, some mild cough. Treated initially with Cefepime x 6 days and Dapto for cellulitis, added doxy on 09/28 -continue course of doxycycline for 4 more days on discharge -treated w/ Xopenex scheduled nebs for ongoing wheezing and hypoxemia--> dc home with albuterol inhaler as xopenex not typically cot affordable -Needs repeat chest CT in 2 to 3 months to ensure resolution of abnormal findings -Follow blood cultures-remain no growth to date #Atrial fibrillation with rapid ventricular response: Developed soon after admission and was quite rapid almost in the 200s for heart rate but patient was asymptomatic. He spontaneously converted to NSR and diltiazem drip has been switched to oral diltiazem. Echo with preserved EF. Tolerating anticoagulation well without evidence of bleeding -Appreciate cardiology consultation - Continue diltiazem CD 300 mg daily - Started Eliquis 5 Mg p.o. twice daily -replace electrolytes as needed to keep optimal-give KCl 40 meq po x 1 on day of discharge and continue KCl 10 meq po daily on discharge -f/u with Cardiology as outpt-he prefers telehealth appts #Cellulitis/Chronic venous insufficiency: Bilateral lower extremity stasis dermatitis with possible cellulitis. He has been on antibiotics and legs appear the same as per patient Doubt he ever actually had cellulitis. Echo with borderline dilated RV with normal function and poorly visualized tricuspid valve and left atrium - Supportive care, continue home Lasix low-dose and added KCl po #BPH (benign prostatic hyperplasia): Urinary retention in the ED required Brown catheter placement. Brown catheter removed and passed TOV #COPD/asthma/acute respiratory failure with hypoxemia-was requiring 3 LNC O2 and not on O2 at baseline. Likely secondary to COPD as well as pneumonia/bronchitis - Added scheduled Xopenex nebs and resumed home lasix--> now weaned to room air at rest and needs 2LNC with exertion/transfers to wheelchair -continue doxycycline for pulmonary coverage x 5 day course #DMII-he has required very minimal insulin and is on metformin at home. HgbA1c well-controlled at 6.0% Diabetic diet. Sliding scale coverage. Controlled - Resume metformin on discharge #HLD-simvastatin held while on daptomycin - Discontinued daptomycin and can resume simvastatin #Depression-not currently on medications #COBY/Hypokalemia: Potassium level remains mildly low from lasix use. COBY Now resolved. Brown catheter removed and passed a trial of void - Follow BMP as outpt -give KCl 10 meq po daily on discharge DVT Proph-Eliquis Dispo-discharge to home today with Notes For Next Care Provider Check CT chest in 2 months Medication Changes From Visit see list Admission HPI Per Admitting Provider 74-year-old male PMHx T2DM, COPD, asthma, HTN, GERD, dyslipidemia, depression, and BPH presenting for fall at home. States that the fall happened the morning of arrival. He felt that his feet got tied up underneath him and he fell because of this. He landed on his bottom and did not hit his head because his home office claim specialist was there to help catch his head. He is not on any blood thinners. No areas of complaint at time of admission. 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 Patient reports that the day of arrival, he was experiencing some new SOB and an episode of full body shaking (no alteration in consciousness). Also reports that for the past week [employer], he has been having a cough that is somewhat productive but he is unsure of the quality of sputum because he does not spit it out. Has had decreased appetite and overall poor oral intake for the past wee as well. Was concerned because the day [employer]ILD[employer], he only urinated once and then the day of arrival he did not urinate at all, but felt as though he had to and couldn't. Patient was recently started on Azithromycin (09/21/2024) for COPD exacerbation and states that since starting this, he has experienced diarrhea. Overall, the patient does have some SOB but states that it had improved from earlier on the day of arrival. Does not that his legs are often edematous bilaterally, and that he had some drainage coming from his posterior calves recently. He has not noticed any direct injury to his legs, but does relay that his legs often do have open areas. He is denying chest pain/pressure, palpitations, abdominal pain, N/V/C, abnormal numbness/tingling (does have neuropathy at baseline), lacy tional LUTS, or fevers. ED evaluation reveals leukocytosis 21.02, H/H stable; ESR 55; CMP K 3.3, Cr 1.56, glucose 149; lactate 3.1; trop 30.8, pending repeat; CRP pending; procal 0.50; TSH 0.996; UA without evidence of infection; COVID swab negative; CXR with mild pulmonary vascular congestion; Head CT without acute findings, does reveal chronic microvascular angiopathy with age related senile atrophy.; Provided with 2 L NSS in ED and Cefepime 2g IV. Please see Dr. Cruz's attestation for adjustments/additions to treatment plan. Discharge Exam Constitutional WD/WN, vitals as above Respiratory normal respiratory effort and + cough Auscultation: + crackles (At bases) and + wheezes (Bilateral middle lung johnson); no rhonchi Cardiovascular Rate/Rhythm: regular rate and regular rhythm Extremities: + edema (Chronic woody 3+ edema with venous stasis dermatitis) Gastrointestinal (Abdomen) normal bowel sounds, soft, nontender, no hepatosplenomegaly Psychiatric A+Ox3, euthymic affect Discharge Plan Discharge Items Patient Disposition: Home - Home Health Services Reason For Visit: SEPSIS, CELLULITIS Discharge Diagnosis: Sepsis, pneumonia/bronchitis Possible cellulitis of legs Rapid atrial fibrillation Acute and chronic respiratory failure with hypoxemia Condition on Discharge: Fair Activity: As commented below Bathing: No limitations Exercise/Sports: Gradually increase as tolerated Exercise Comment: With home PT/OT Non-emergency contact: Primary Care Provider and Textile Engineer Call non-emergency contact if: you have any medication questions and your symptoms worsen Follow-up/Referrals: Harlan Osorio MD [Primary Care Provider] - (Follow-up within 1 to 2 weeks) Tariq Mejía MD [Physician] - (Follow-up within 2 to 3 weeks- telehealth appointment needed) Diet: Carb Consistent or DM2 and Low Sodium (2gm) Fluids: 1800ml (7 cups) Addtl Attending Provider Instructions: You were admitted with sepsis likely due to a combination of pneumonia and cellulitis of the legs. You were treated with antibiotics and had improvement. Please finish out 4 more days of doxycycline 100 Mg by mouth twice a day. While you are admitted, you had a rapid irregular heart rhythm called atrial fibrillation. Fortunately, your heart converted to a normal rhythm. You were placed on a blood thinner called Eliquis to be taken twice a day to help prevent strokes that can be associated with atrial fibrillation. You are also started on a medication called diltiazem to help slow your heart rate down. Please follow-up with a high density press operator via telehealth appointment within 2 to 3 weeks after discharge. You will need to wear oxygen at 2 L via the nasal cannula with exertion. You will need a repeat CT scan of your chest in 2 months to ensure that the abnormalities seen here are resolved. Your PCP can order this test for you Here are some guidelines about taking Eliquis: There is an increased risk of blood clots if you stop taking Eliquis. Do not stop taking Eliquis without talking to your doctor.. Stopping Eliquis increases your risk of having a stroke. There is an increased risk of bleeding. Eliquis can cause bleeding which can be serious and may lead to . This is because Eliquis is a blood thinner medicine (anticoagulant) that lowers blood clotting. During treatment with Eliquis you are likely to bruise more easily, and it may take longer for bleeding to stop. * If you ever cannot get bleeding to stop please report to the ER * If you have a bruise that is large/painful or swollen you should also be seen by a medical provider Call your doctor or get medical help right away if you or your child develop any of these signs or symptoms of bleeding: unexpected bleeding or bleeding that lasts a long time, such as: * Nose bleeds that happen often * unusual bleeding from the gums * bleeding that is severe or you cannot control * red, pink or brown urine * bright red or black stools (looks like tar) * cough up blood or blood clots * vomit blood or your vomit looks like coffee grounds If you have a fall and hit your head, please come to the ER and get checked out. Being on a blood thinner increases your risk of brain bleeding with falls. Avoid high risk activities, such as: * standing on tall ladders * riding motorcycles * anything where you are high risk for falls or trauma Avoid taking NSAIDs (pain medication) while you are taking a blood thinner. This includes: * Ibuprofen, Aleve Advil, Naproxen. * If you are ever unsure you can ask your doctor or pharmacist. * Tylenol is SAFE to take. If you have any new or worsening chest pain or shortness of breath please return to the ER. Pending Studies at Discharge: Yes (Final blood cultures-remain no growth to date) Stand-Alone Forms: [facility] [employer], Smoking Cessation Medications and DC Order Prescriptions: New diltiazem HCl [Cardizem CD] 300 mg Capsule,Extended Release 24hr 300 mg PO QAM Qty: 30 0RF Eliquis 5 mg Tablet 5 mg PO BID Qty: 60 0RF potassium chloride 10 mEq tablet extended release 10 meq PO DAILY Qty: 30 0RF albuterol sulfate 90 mcg/actuation HFA aerosol inhaler 2 inh inhalation 6XD PRN (Reason: shortness of breath or wheezing) Qty: 8.5 0RF doxycycline hyclate 100 mg tablet 100 mg PO BID Qty: 8 0RF Continued furosemide 20 mg tablet 20 mg PO QAM Qty: 90 1RF metformin 500 mg tablet 500 mg PO BID Qty: 180 3RF Rx Instructions: TAKE 1 TABLET TWICE DAILY simvastatin 20 mg tablet 20 mg PO QPM Qty: 90 3RF hydroxyzine HCl 25 mg tablet 25 mg PO BID PRN (Reason: itching) Qty: 60 1RF Hold Instructions: Resume on 03/13/23. diphenhydramine HCl [Benadryl Allergy] 25 mg Tablet 25 mg PO HS PRN (Reason: Sleep) docusate sodium 100 mg Capsule 100 mg PO BID Qty: 60 0RF polyethylene glycol 3350 [Miralax] 17 gram Powder In Packet 17 g PO DAILY Qty: 30 0RF Discontinued azithromycin [Zithromax Z-Jonas] 250 mg tablet See Rx Instructions PO .COMPLEX Qty: 6 0RF Rx Instructions: take 500 mg today (day 1), then 250 mg for 4 days (days 2-5) PO Discharge Orders: Discharge Order (Routine); Ordered 09/29/24 Ordered By: Cydney Higuera/Other Patient Handouts: Managing Type 2 Diabetes Admission Data Admit Date/Time: 09/24/24 21:41 Attending Provider: Cydney Dominguez Admit Provider: Syd Cruz Primary Care Provider: Harlan Osorio Other Providers: Syd Cruz; Magdi Whitley; Sanju Reddy; Harlan Mcdonnell; Jorge Laguna; Jennifer Sales; Ale Mireles; Tariq Sanz; Tariq Mejía; Malcolm Mayfield; Phong Bell; Shamar Sibley; Joyce Sesay; Magdi Ortiz; Mario Luna; Jhon Mayer; Monse Shook; Riley Gaines Jr; [facility] Hospital Stay Data Consultations 09/24/24 20:49 ED Decision to Admit Stat 09/25/24 08:25 Consult Cardiology Routine Diagnostic Imagining Performed 09/24/24 17:55 CT head/brain wo con Stat 09/25/24 07:45 CT angio chest PE protocol Stat Pending Results Patient Have Any Pending Studies at Discharge: Yes (Final blood cultures-remain no growth to date) Discharge Instructions Given to Patient (Per Discharging Provider) You were admitted with sepsis likely due to a combination of pneumonia and cellulitis of the legs. You were treated with antibiotics and had improvement. Please finish out 4 more days of doxycycline 100 Mg by mouth twice a day. While you are admitted, you had a rapid irregular heart rhythm called atrial fibrillation. Fortunately, your heart converted to a normal rhythm. You were placed on a blood thinner called Eliquis to be taken twice a day to help prevent strokes that can be associated with atrial fibrillation. You are also started on a medication called diltiazem to help slow your heart rate down. Please follow-up with a high density press operator via telehealth appointment within 2 to 3 weeks after discharge. You will need to wear oxygen at 2 L via the nasal cannula with exertion. You will need a repeat CT scan of your chest in 2 months to ensure that the abnormalities seen here are resolved. Your PCP can order this test for you Here are some guidelines about taking Eliquis: There is an increased risk of blood clots if you stop taking Eliquis. Do not stop taking Eliquis without talking to your doctor.. Stopping Eliquis increases your risk of having a stroke. There is an increased risk of bleeding. Eliquis can cause bleeding which can be serious and may lead to . This is because Eliquis is a blood thinner medicine (anticoagulant) that lowers blood clotting. During treatment with Eliquis you are likely to bruise more easily, and it may take longer for bleeding to stop. * If you ever cannot get bleeding to stop please report to the ER * If you have a bruise that is large/painful or swollen you should also be seen by a medical provider Call your doctor or get medical help right away if you or your child develop any of these signs or symptoms of bleeding: unexpected bleeding or bleeding that lasts a long time, such as: * Nose bleeds that happen often * unusual bleeding from the gums * bleeding that is severe or you cannot control * red, pink or brown urine * bright red or black stools (looks like tar) * cough up blood or blood clots * vomit blood or your vomit looks like coffee grounds If you have a fall and hit your head, please come to the ER and get checked out. Being on a blood thinner increases your risk of brain bleeding with falls. Avoid high risk activities, such as: * standing on tall ladders * riding motorcycles * anything where you are high risk for falls or trauma Avoid taking NSAIDs (pain medication) while you are taking a blood thinner. This includes: * Ibuprofen, Aleve Advil, Naproxen. * If you are ever unsure you can ask your doctor or pharmacist. * Tylenol is SAFE to take. If you have any new or worsening chest pain or shortness of breath please return to the ER. Total Time Total Time Spent Total Time Spent (In Minutes): 35 min Total Time Includes: Examination of the Patient, Discharge Planning and Medication Reconciliation Coding Level of Care Code 46753 INP/OBS DISCH >30 MIN Diagnoses Sepsis A41.9 Atrial fibrillation with rapid ventricular response I48.91 Cellulitis L03.90 Site of cellulitis: unspecified site Pneumonia J18.9 Laterality: bilateral Lung location: unspecified part of lung Pneumonia type: due to unspecified organism
[2024-09-29 11:28] VITALS: BP 132/71; TEMP 98.6
[2024-09-29 13:16] VITALS: PULSE 92; RESP 20; O2SAT 2
[2024-09-29] MEDS ORDERED: SIMVASTATIN 20 MG TAB PO SCH (21:00)
== END 2024-09-29 11:38 | disposition home health service (06) | DRG 871 ==
LOC: ED 17:34 → 2S 21:41 → SUATTDRO 21:41 → 2S 22:36

== ENCOUNTER 2025-01-19 15:22 | Observation (INO) ==
--- NOTE | 2025-01-19 17:04 | Emergency Department Note ---
Impression & Plan Cellulitis, Acute UTI, Leukocytosis, Pedal edema ED Provider Note NAME: VAZQUEZ PACE AGE: 75 SEX: M : 1950 ARRIVES VIA: Ambulance INFORMANT: [Patient] ED PROVIDER(S): [Sree Patricia MD] CHIEF COMPLAINT: Leg infection HISTORY OF PRESENT ILLNESS: The patient is a 75-year-old male with chronic lower extremity edema. He is unable to ambulate and is basically chair bound. The patient states that his legs are always somewhat swollen but, in the last few days, the right leg has become more swollen and red and there has been some discharge. He was sent with concerns for cellulitis. There has been no fever, no cough or congestion. No vomiting or diarrhea. He is not currently on antibiotics. He has no history of DVT or PE, he does not take blood thinning agents. PMHx/PSHx/Social Hx: See Below PHYSICAL EXAM: GENERAL: Patient is in no acute distress. HEENT: No acute trauma, normocephalic atraumatic, mucous membranes moist, no nasal congestion. NECK: No stridor, no adenopathy, no meningismus, trachea is midline. LUNGS: Clear to auscultation bilaterally, no wheeze, no rhonchi, breath sounds equal. HEART: 1/6 systolic murmur, regular rate and rhythm. ABDOMEN: Soft, nontender, no peritonitis. Obese. EXTREMITIES: No cyanosis marked bilateral pedal edema with chronic skin change. There are wraps on both lower extremities, the right lower extremity is erythematous from the foot to above the knee. There is some increased warmth. NEUROLOGIC: Oriented x 3, awake and alert. SKIN: No jaundice, no diaphoresis. DIFFERENTIAL DIAGNOSIS: Cellulitis, bacteremia or sepsis, DVT, among others. EMERGENCY DEPARTMENT PROCEDURES: MEDICAL DECISION MAKING: There is a moderate leukocytosis, this would be consistent with infection. There is a slightly low hemoglobin at 13.8. There was a normal platelet count. No bandemia. No coagulopathy. No renal failure or significant electrolyte abnormality. Lactic acid level was not elevated making severe sepsis less likely. No concerning liver enzyme elevation. ECG showed a sinus rhythm, no ischemia or dysrhythmia. Cardiac enzyme testing x 1 was not consistent with acute cardiac injury. Urinalysis does show findings of infection. Chest x-ray does not show pneumonia or CHF. Bilateral lower extremity ultrasound does not show any obvious DVT. On exam, patient had marked pedal edema with an obvious cellulitis to the right lower extremity. He was not febrile or toxic. The patient was given IV saline, IV cefepime. Patient is in need of a hospital stay. He has cellulitis and a UTI. He has a leukocytosis. IV antibiotic therapy is warranted. I spoke with the patient and case management, the on-call hospitalist was consulted. Prior/Outside records/notes reviewed: Today's EMS note describing his presentation and transport to this hospital. ECG per my interpretation: Indication was possible sepsis. The ECG shows a normal sinus rhythm with a rate of 82. There is an incomplete right bundle branch block. There is no acute ST elevation, no PVCs. QTc is 464. Continuous Cardiac Monitoring per my interpretation: An order was placed for continuous cardiac monitoring. The monitor shows a rate of 89 with normal sinus rhythm. Imaging/x-ray results per my interpretation: Chest x-ray shows some potential atelectasis, no focal pneumonia or CHF. Chronic Medical/Social conditions affecting care: Advanced age. Care/Management discussed with: Case management and the on-call hospitalist. Level of care consideration(s): After review of the information above and other included data: --I believe the patient requires escalation of care to admission DISPOSITION: Admission Past Med/Surg History Problem List (Updated 01/19/25 @ 19:51 by Sree Patricia MD) Pedal edema (Acute) Leukocytosis (Acute) Acute UTI (Acute) Cellulitis (Acute) Pneumonia BPH w urinary obs/LUTS Chronic venous insufficiency Sepsis Failure to thrive in adult Edema of both lower extremities due to peripheral venous insufficiency Leg wound, right (Acute) COPD (chronic obstructive pulmonary disease) Hematuria Impaired gait and mobility Immobility History of sepsis Morbid obesity with BMI of 40.0-44.9, adult DVT prophylaxis DMII (diabetes mellitus, type 2) Lower extremity cellulitis Hypomagnesemia (Acute) Depression Pruritic dermatitis Hypomagnesemia HARDIN (dyspnea on exertion) Gait abnormality Vitamin D deficiency Edema Asthma HTN (hypertension) (Acute) Prediabetes (Chronic) 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 Arriola S/P partial colectomy H/O oral surgery H/O inguinal hernia repair Family History Other Adopted Family history unknown Denies family history of Ovarian cancer Prostate cancer Myocardial infarction Breast cancer Colorectal cancer Social History Smoking Status: Never smoker Tobacco Type: Cigarettes Age Started Using Tobacco: 15; Age Quit Using Tobacco: 47; packs per day: 2; Second Hand Exposure: No; Do You Dip or Chew Tobacco: No; Hx Alcohol Use: No Hx Substance Use: No Preferred Language: [place] Communication Ability: Effective Visual Impairment: No Limitations Hearing Ability: Normal [employer] 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 Law 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 Required: Voice Beliefs That Will Affect Care: None marital status: Current Living Situation: Spouse current occupational status: retired 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 Feels Safe at Home: Yes Childhood Exposure to Second-Hand Smoke: Yes Diet: regular during the past year weight has: remained stable Dental Care, Regularly: No Physical Activity Frequency: Does not Exercise Seatbelt Use: always Sunscreen Use: No Assistive Devices: Bedside Commode, Cane, Lift Chair, Walker and Wheelchair Allergies Allergies Allergy/AdvReac Type Severity Reaction Status Date / Time sulfamethoxazole Allergy Mild itching Verified 01/29/24 16:11 [From Bactrim] trimethoprim [From Bactrim] Allergy Mild itching Verified 01/29/24 16:11 cheese Allergy Unknown SICK TO Verified 01/29/24 16:11 STOMACH Penicillins Allergy Unknown RASH Verified 01/29/24 16:11 Home Meds Home Medications Medication Instructions Recorded Confirmed diphenhydramine HCl 25 mg tablet 25 mg PO HS PRN Sleep 05/23/23 01/19/25 (Benadryl Allergy) fluticasone fur. 100 mcg-umeclid 1 inh inhalation QAM 01/19/25 01/19/25 62.5 mcg-vilant 25 mcg inhalat.powder (Trelegy Ellipta) potassium chloride 20 mEq 20 meq PO QAM 01/19/25 01/19/25 tablet,extended release Previous Rx's Medication Instructions Recorded furosemide 20 mg tablet 20 mg PO QAM #90 tabs 05/19/24 metformin 500 mg tablet 500 mg PO BID #180 tabs 09/18/24 simvastatin 20 mg tablet 20 mg PO QPM #90 tabs 09/18/24 hydroxyzine HCl 25 mg tablet 25 mg PO BID PRN itching #60 tabs 09/21/24 albuterol sulfate 90 mcg/actuation 2 inh inhalation 6XD PRN shortness 09/29/24 aerosol inhaler of breath or wheezing #8.5 grams diltiazem HCl 300 mg 300 mg PO QAM #90 caps 10/30/24 capsule,extended release 24 hr (Cardizem CD) Results & Data (ED) Vital Signs Vital Signs - 24 hr 01/19/25 15:35 01/19/25 16:55 01/19/25 17:27 Temperature 37.5 C Temperature Source Oral Pulse Rate 94 H 89 Pulse Rate [Apical] 82 Pulse Strength [Apical] Respiratory Rate 17 17 Respiratory Effort / Characteristics Non-Labored Spontaneous Non-Labored Spontaneous Respiratory Depth Normal Normal Respiratory Pattern Blood Pressure 127/69 Blood Pressure [Left Arm] 146/87 H Blood Pressure Mean 88 Blood Pressure Mean [Left Arm] 106 Pulse Oximetry 87 L 92 Oxygen Delivery Method Room Air Room Air Sepsis Recent Fever Within 48 Hours No Sepsis New/Unexplained Change in Mental Status N/A Sepsis Action Taken by Nursing No Action Required 01/19/25 17:30 01/19/25 17:31 01/19/25 18:00 Temperature Temperature Source Pulse Rate Pulse Rate [Apical] 82 76 Pulse Strength [Apical] Normal Respiratory Rate 18 17 Respiratory Effort / Characteristics Non-Labored Spontaneous Non-Labored Spontaneous Respiratory Depth Normal Normal Respiratory Pattern Regular Blood Pressure Blood Pressure [Left Arm] 147/63 H 132/73 Blood Pressure Mean Blood Pressure Mean [Left Arm] 91 92 Pulse Oximetry 92 92 92 Oxygen Delivery Method Room Air Room Air Room Air Sepsis Recent Fever Within 48 Hours Sepsis New/Unexplained Change in Mental Status Sepsis Action Taken by Nursing 01/19/25 19:11 Temperature 37 C Temperature Source Oral Pulse Rate Pulse Rate [Apical] 80 Pulse Strength [Apical] Respiratory Rate 20 Respiratory Effort / Characteristics Respiratory Depth Respiratory Pattern Blood Pressure Blood Pressure [Left Arm] 120/62 Blood Pressure Mean Blood Pressure Mean [Left Arm] 81 Pulse Oximetry 93 Oxygen Delivery Method Sepsis Recent Fever Within 48 Hours Sepsis New/Unexplained Change in Mental Status Sepsis Action Taken by [facility] Medications Current Medication List: was personally reviewed by me Laboratory Data Attestation: I reviewed the patient's lab results. 01/19/25 17:10 01/19/25 17:10 Lab Results 01/19/25 01/19/25 01/19/25 Range/Units 17:10 17:20 Unknown WBC 16.40 H (4.8-10.8) K/ul RBC 4.80 (4.70-6.10) M/uL Hgb 13.8 L (14.0-18.0) g/dl Hct 43.0 (42.0-52.0) % MCV 89.6 (80.0-100.0) fL MCH 28.8 (25.0-34.0) pg MCHC 32.1 (32.0-36.0) g/dL RDW Std Deviation 47.0 H (36.4-46.3) fL RDW Coeff of Jocelyn 14.2 (11.5-14.5) % Plt Count 263 (130-400) K/uL MPV 9.1 L (9.4-12.4) fL Immature Gran % (Auto) 0.4 % Neut % (Auto) 81.5 % Lymph % (Auto) 9.4 % [place] % (Auto) 7.9 % Eos % (Auto) 0.5 % Baso % (Auto) 0.3 % Neut # (Auto) 13.37 H (1.40-6.50) K/uL Lymph # (Auto) 1.54 (1.20-3.40) K/uL [place] # (Auto) 1.29 H (0.11-0.59) K/uL Eos # (Auto) 0.08 (0.00-0.50) K/uL Baso # (Auto) 0.05 (0.00-0.20) K/uL Immature Gran # (Auto) 0.07 (0.01-0.20) K/uL PT 10.9 (9.0-12.0) Seconds INR 1.0 (0.9-1.1) APTT 31 (21-31) Seconds PTT Ratio 1.2 Sodium 138 (136-145) mmol/L Potassium 4.1 (3.5-5.1) mmol/L Chloride 100 (98-107) mmol/L Carbon Dioxide 30 (21-32) mmol/L Anion Gap 8 (3-11) BUN 13 (6-23) mg/dl Creatinine 1.13 (0.6-1.4) mg/dl Est Cr Clr Drug Dosing 77.7 ml/min eGFR 67.36 BUN/Creatinine Ratio 11.5 (10-20) Glucose 112 H (70-99(Fasting)) mg/dl Lactate 2.0 (0.4-2.0) mmol/L Calcium 8.9 (8.6-10.3) mg/dl Magnesium 1.9 (1.7-2.4) mg/dl Total Bilirubin 0.7 (0.2-1.0) mg/dl Direct Bilirubin 0.2 (0-0.2) mg/dl AST 10 L (13-39) U/L ALT 7 (7-52) U/L Alkaline Phosphatase 89 (34-104) U/L Troponin I High Sens 7.7 (0-20) pg/ml Total Protein 7.0 (6.0-8.3) gm/dl Albumin 3.4 (3.4-5.0) gm/dl Procalcitonin 0.05 (0-0.5) ng/ml Urine Color Yellow Urine Appearance Cloudy A (Clear) Urine pH 6.0 (4.5-7.5) Ur Specific [place] 1.011 (1.000-1.030) Urine Protein Negative (Negative) Urine Glucose (UA) Negative (Negative) Urine Ketones Negative (Negative) Urine Blood Trace H (Negative) Urine Nitrite Positive A (Negative) Urine Bilirubin Negative (Negative) Urine Urobilinogen Negative (Negative) Ur Leukocyte Esterase 3+ H (Negative) Urine WBC (Auto) >50 H (0-5) /hpf Urine RBC (Auto) 0-2 (0-2) /hpf U Hyaline Cast (Auto) 3-5 H (0-2) /lpf U Epithel Cells (Auto) 0-2 (0-2) /hpf Urine Bacteria (Auto) 4+ H (None Seen) Urine Comment Administered Medications Discontinued Medications Sodium Chloride (Nss) 500 mls @ 999 mls/hr IV .Q31M BRANDON Stop: 01/19/25 17:30 Last Infusion: 01/19/25 18:18 Dose: Infused Documented By: Admin: 01/19/25 17:13 Dose: 999 mls/hr Documented By: JUVENTINO Cefepime HCl (Maxipime 2000mg) 2,000 mg in 20 mls @ 5 mls/min IV NOW STA; Protocol Stop: 01/19/25 16:49 Last Admin: 01/19/25 17:12 Dose: 5 mls/min Documented By: JUVENTINO Imaging Data Radiologist's Impression: Chest X-Ray 01/19/25 16:46 Chest radiograph, one view History: Chest pain Comparison: None Findings: Single AP view of the chest performed. No focal consolidation or pleural effusion. No pneumothorax. Focal scarring at the left lung base. The cardiomediastinal silhouette is within normal limits. Normal pulmonary vascularity. No evidence for lymphadenopathy. No visualized bony or soft tissue abnormality. Impression: Normal chest radiograph Electronically signed by Tariq Magdaleno 01-19-2025 5:40 PM Venous Doppler Study 01/19/25 16:46 Clinical History: Edema Technique: Venous ultrasound evaluation was performed utilizing grayscale, color Doppler and wave form evaluation. Images were also obtained with and without compression Findings: The visualized common femoral, superficial femoral, popliteal, and visualized calf veins demonstrate normal anechoic lumens with full compressibility. Normal flow is seen on color Doppler images. Expected waveforms were produced with augmentation maneuvers There are bilateral enlarged inguinal lymph nodes with fatty clifford, likely benign. There is subcutaneous edema in the left calf Impression: No definite evidence of deep venous thrombosis Electronically signed by Manuel Zamora 01-19-2025 7:18 PM Discharge Plan Visit Data Chief Complaint: Wound Dehiscence Stated Complaint: R LEG WOUND ED Provider: Sree Patricia Discharge Problem: Cellulitis, Acute UTI, Leukocytosis, Pedal edema Patient Disposition: Admitted As Inpatient Condition: Fair Forms Stand Alone Forms: My [employer] Prescriptions Prescriptions: No Action furosemide 20 mg tablet 20 mg PO QAM Qty: 90 1RF metformin 500 mg tablet 500 mg PO BID Qty: 180 3RF simvastatin 20 mg tablet 20 mg PO QPM Qty: 90 3RF hydroxyzine HCl 25 mg tablet 25 mg PO BID PRN (Reason: itching) Qty: 60 1RF Hold Instructions: Resume on 03/13/23. diltiazem HCl [Cardizem CD] 300 mg capsule,extended release 24hr 300 mg PO QAM Qty: 90 3RF diphenhydramine HCl [Benadryl Allergy] 25 mg Tablet 25 mg PO HS PRN (Reason: Sleep) potassium chloride 20 mEq tablet extended release 20 meq PO QAM Trelegy Ellipta 100-62.5-25 mcg blister with device 1 inh inhalation QAM albuterol sulfate 90 mcg/actuation HFA aerosol inhaler 2 inh inhalation 6XD PRN (Reason: shortness of breath or wheezing) Qty: 8.5 0RF Referrals Referrals: Harlan Osorio MD [Primary Care Provider] - Discharge Problem: Cellulitis Qualifiers: Site of cellulitis: extremity Site of cellulitis of extremity: lower extremity Laterality: right Qualified Code(s): L03.115 - Cellulitis of right lower limb Leukocytosis Qualifiers: Leukocytosis type: unspecified Qualified Code(s): D72.829 - Elevated white blood cell count, unspecified
[2025-01-19] MEDS: CEFEPIME 2000MG 2,000 MG/20 ML SYR IV STA (17:12)
[2025-01-19] MEDS: SODIUM CHLORIDE 0.9% 500 ML IV SCH (17:13)
--- NOTE | 2025-01-19 17:41 | XRay Report ---
Chest radiograph, one view History: Chest pain Comparison: None Findings: Single AP view of the chest performed. No focal consolidation or pleural effusion. No pneumothorax. Focal scarring at the left lung base. The cardiomediastinal silhouette is within normal limits. Normal pulmonary vascularity. No evidence for lymphadenopathy. No visualized bony or soft tissue abnormality. Impression: Normal chest radiograph Electronically signed by Tariq Magdaleno 01-19-2025 5:40 PM
[2025-01-19 17:44] LABS: Hematocrit (blood only) 43.0 % (42.0-52.0); Hemoglobin 13.8 g/dl (14.0-18.0); Immature Granulocytes # (auto) 0.07 K/uL (0.01-0.20); Immature Granulocytes % (auto) 0.4 %; Mean Corpuscular Hemoglobin 28.8 pg (25.0-34.0); Mean Corpuscular Volume 89.6 fL (80.0-100.0); Platelet Count 263 K/uL (130-400); RDW Standard Deviation 47.0 fL (36.4-46.3); Red Blood Count 4.80 M/uL (4.70-6.10); White Blood Count 16.40 K/ul (4.8-10.8)
[2025-01-19 18:03] LABS: Alanine Aminotransferase 7.0 U/L (7-52); Alkaline Phosphatase 89.0 U/L (34-104); Anion Gap 8.0 (3-11); Bilirubin,Total 0.7 mg/dl (0.2-1.0); Blood Urea Nitrogen 13.0 mg/dl (6-23); Calcium 8.9 mg/dl (8.6-10.3); Carbon Dioxide 30.0 mmol/L (21-32); Chloride 100.0 mmol/L (98-107); Creatinine Clr Calc Pharmacy 77.7 ml/min; Glucose 112.0 mg/dl (70-99(Fasting)); Magnesium 1.9 mg/dl (1.7-2.4); Potassium 4.1 mmol/L (3.5-5.1); Sodium 138.0 mmol/L (136-145); Total Protein 7.0 gm/dl (6.0-8.3)
[2025-01-19 18:16] LABS: INR 1.0 (0.9-1.1); Partial Thromboplastin Time 31 Seconds (21-31); Prothrombin Time 10.9 Seconds (9.0-12.0)
[2025-01-19 18:22] LABS: Appearance Urine Cloudy (Clear); Bacteria Urine Automated 4+ (None Seen); Epithelial Cell Urine Auto 0-2 /hpf (0-2); Glucose Urine UA Negative (Negative); RBC Urine Automated 0-2 /hpf (0-2); WBC Urine Automated >50 /hpf (0-5)
--- NOTE | 2025-01-19 19:18 | Ultrasound Report ---
Clinical History: Edema Technique: Venous ultrasound evaluation was performed utilizing grayscale, color Doppler and wave form evaluation. Images were also obtained with and without compression Findings: The visualized common femoral, superficial femoral, popliteal, and visualized calf veins demonstrate normal anechoic lumens with full compressibility. Normal flow is seen on color Doppler images. Expected waveforms were produced with augmentation maneuvers There are bilateral enlarged inguinal lymph nodes with fatty clifford, likely benign. There is subcutaneous edema in the left calf Impression: No definite evidence of deep venous thrombosis Electronically signed by Manuel Zamora 01-19-2025 7:18 PM
--- NOTE | 2025-01-19 20:12 | History & Physical Report ---
Date of Service January 19, 2025 Assessment & Plan (1) Lower extremity cellulitis: (2) Acute UTI: (3) Chronic venous insufficiency: (4) DMII (diabetes mellitus, type 2): Plan The patient is a 75-year-old male with past medical history including BPH with LUTS, chronic venous insufficiency, sepsis, failure to thrive in adult, edema both lower extremities, COPD, impaired gait and mobility, diabetes mellitus type 2, depression, hypertension, asthma, dyslipidemia and GERD. He presents to the emergency department with a few days of worsening of his chronic lower extremity venous insufficiency. He undergoes unknown treatment by a family member at home. He reports that he comes into the ED because there is a new greenish drainage from the right lower extremity. Workup in the emergency department included a right lower extremity venous Doppler which was negative for DVT. He also received normal saline 500 mL bolus, and cefepime 2 g IV. WBC elevated at 16.40. Urinalysis is suggestive of a urinary tract infection. Bilateral lower extremity cellulitis secondary to chronic venous insufficiency, right worse than left- Patient reports a greenish drainage out of right lower extremity, but not visible on examination at this time Venous Doppler right lower extremity negative for DVT MRSA swab Cefepime 2 g IV every 12 hours Consult wound care Patient looks like he would probably benefit from Unna boots bilaterally Reportedly is getting some form of wound care from a relative at home Hold furosemide and potassium chloride, as patient looks relatively volume depleted at this time LR at 80 mL/h x 1 L Acute urinary tract infection/BPH with LUTS- Follow urine culture and sensitivity Cefepime 2 g IV every 12 hours as noted above Nonsustained V. tach- Patient had a 9 beat run of NSVT while in the ED No previous history noted Potassium 4.1 and magnesium 1.9 The patient will be admitted to telemetry for serial cardiac enzymes, serial EKG's, cardiac rhythm monitoring and a 2-D echocardiogram with Dopplers. Initial troponin normal at 7.7 Continue diltiazem Repeat in a.m. Diabetes mellitus- Hold metformin Placed Accu-Cheks with NovoLog SSI Hypoxia/asthma/COPD/presumptive obesity hypoventilation syndrome- O2 saturation was at its lowest 87% on room air On 2 L of oxygen, he is maintained in 95-96 range Upon questioning, patient reports that he does have an oxygen unit at home, however, he does not use it because it does not think it makes a difference for him. He likely should resume it. Asked him to bring his unit in so it can be determined if it still functional Incentive spirometry Likely has obesity hypoventilation syndrome Continue inhalers: Trelegy Ellipta, and albuterol sulfate as needed Ambulatory dysfunction- Due to his body habitus, patient physical activity is restricted to transferring from bed to chair and back again He upon questioning, reports that he has never been on DVT prophylaxis other than in the hospital Placed him on heparin 5000 units SQ every 12 hours He likely should be home on DVT prophylaxis as well Hyperlipidemia- Continue simvastatin History of Present Illness Chief Complaint: The patient presents to the emergency department with a few days of worsening of bilateral lower extremity edema and erythema in both legs, and greenish drainage from the right leg. He has been treated for what was determined to be cellulitis in the past. He denies any recent trauma. He does have a family member who does some form of treatment at home. His primary level of activity is transferring from bed to chair and back again. Primary Care Provider: Harlan Osorio MD The patient is a 75-year-old male with past medical history including BPH with LUTS, chronic venous insufficiency, sepsis, failure to thrive in adult, edema both lower extremities, COPD, impaired gait and mobility, diabetes mellitus type 2, depression, hypertension, asthma, dyslipidemia and GERD. He presents to the emergency department with a few days of worsening of his chronic lower extremity venous insufficiency. He undergoes unknown treatment by a family member at home. He reports that he comes into the ED because there is a new greenish drainage from the right lower extremity. Workup in the emergency department included a right lower extremity venous Doppler which was negative for DVT. He also received normal saline 500 mL bolus, and cefepime 2 g IV. WBC elevated at 16.40. Urinalysis is suggestive of a urinary tract infection. Allergies Allergy/AdvReac Type Severity Reaction Status Date / Time sulfamethoxazole Allergy Mild itching Verified 01/29/24 16:11 [From Bactrim] trimethoprim [From Bactrim] Allergy Mild itching Verified 01/29/24 16:11 cheese Allergy Unknown SICK TO Verified 01/29/24 16:11 STOMACH Penicillins Allergy Unknown RASH Verified 01/29/24 16:11 Home Medications Medication Instructions Recorded Confirmed Type diphenhydramine HCl 25 mg tablet 25 mg PO HS PRN Sleep 05/23/23 01/19/25 History (Benadryl Allergy) furosemide 20 mg tablet 20 mg PO QAM #90 tabs 05/19/24 01/19/25 Rx metformin 500 mg tablet 500 mg PO BID #180 tabs 09/18/24 01/19/25 Rx simvastatin 20 mg tablet 20 mg PO QPM #90 tabs 09/18/24 01/19/25 Rx hydroxyzine HCl 25 mg tablet 25 mg PO BID PRN itching #60 tabs 09/21/24 01/19/25 Rx albuterol sulfate 90 mcg/actuation 2 inh inhalation 6XD PRN shortness 09/29/24 01/19/25 Rx aerosol inhaler of breath or wheezing #8.5 grams diltiazem HCl 300 mg 300 mg PO QAM #90 caps 10/30/24 01/19/25 Rx capsule,extended release 24 hr (Cardizem CD) fluticasone fur. 100 mcg-umeclid 1 inh inhalation QAM 01/19/25 01/19/25 History 62.5 mcg-vilant 25 mcg inhalat.powder (Trelegy Ellipta) potassium chloride 20 mEq 20 meq PO QAM 01/19/25 01/19/25 History tablet,extended release Past Med/Surg History Problem List (Updated 01/19/25 @ 21:29 by Damaris Wood) Pedal edema (Acute) Leukocytosis (Acute) Acute UTI (Acute) Cellulitis (Acute) Pneumonia BPH w urinary obs/LUTS Chronic venous insufficiency Sepsis Failure to thrive in adult Edema of both lower extremities due to peripheral venous insufficiency Leg wound, right (Acute) COPD (chronic obstructive pulmonary disease) Hematuria Impaired gait and mobility Immobility History of sepsis Morbid obesity with BMI of 40.0-44.9, adult DVT prophylaxis DMII (diabetes mellitus, type 2) Lower extremity cellulitis Hypomagnesemia (Acute) Depression Pruritic dermatitis Hypomagnesemia HARDIN (dyspnea on exertion) Gait abnormality Vitamin D deficiency Edema Asthma HTN (hypertension) (Acute) Prediabetes (Chronic) 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 Arriola S/P partial colectomy H/O oral surgery H/O inguinal hernia repair Family History Other Adopted Family history unknown Denies family history of Ovarian cancer Prostate cancer Myocardial infarction Breast cancer Colorectal cancer Social History Smoking Status: Never smoker Tobacco Type: Cigarettes Age Started Using Tobacco: 15; Age Quit Using Tobacco: 47; packs per day: 2; Second Hand Exposure: No; Do You Dip or Chew Tobacco: No; Hx Alcohol Use: No Hx Substance Use: No Preferred Language: Burkinan Communication Ability: Effective Visual Impairment: No Limitations Hearing Ability: Normal Wire Winder Required: Voice Beliefs That Will Affect Care: None marital status: Current Living Situation: Spouse current occupational status: retired 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 Feels Safe at Home: Yes Childhood Exposure to Second-Hand Smoke: Yes Diet: regular during the past year weight has: remained stable Dental Care, Regularly: No Physical Activity Frequency: Does not Exercise Seatbelt Use: always Sunscreen Use: No Assistive Devices: Bedside Commode, Cane, Lift Chair, Walker and Wheelchair Review of Systems Review of Systems: The patient denies chest pain, palpitations, shortness of breath, dyspnea on exertion, no change in his chronic nonproductive cough, sore throat, fevers, chills, sweats, nausea, vomiting, diarrhea , constipation, abdominal pain, pelvic pain, blood in urine or stool, dysuria, urinary frequency or urgency, lightheadedness, dizziness, headache, memory loss, loss of consciousness, focal or generalized weakness, numbness or tingling in arms , or night sweats. The review of systems is otherwise negative other than for that already noted above, and at least 10 systems have been reviewed. Physical Exam Physical Exam: The patient is awake, alert and oriented 3, well developed and well nourished, normocephalic and atraumatic, lying in bed and in no acute distress. HEENT--PERRL, EOMI, mucous membranes and oropharynx normal Neck--supple. No JVD. No bruits. Thyroid normal, trachea midline, no adenopathy. Heart--normal S1 and S2. No murmurs, rubs or gallops. Lungs--decreased breath sounds throughout Abdomen--normal bowel sounds and soft. Nontender. Nondistended. Morbidly obese Extremities--bilateral lower extremities with moderate erythema, scaling of both legs, and pedal edema right greater than left. Right lower extremity with a few areas of oozing. Dermatologic--normal except for lower extremities as noted above Neurologic--cranial nerves II through XII grossly intact. Rheumatologic--exam limited by body habitus Psychiatric--normal affect. Results & Data Results & Data Vital Signs (Past 12 Hours) Vital Signs Temp Pulse Pulse Resp BP BP Pulse Ox 01/19/25 20:00 86 18 150/78 H 94 01/19/25 19:30 78 18 124/79 94 01/19/25 19:11 84 18 120/62 94 01/19/25 19:11 37 C 80 20 120/62 93 01/19/25 18:00 76 17 132/73 92 01/19/25 17:31 92 01/19/25 17:30 82 18 147/63 H 92 01/19/25 17:27 82 17 146/87 H 92 01/19/25 16:55 89 01/19/25 15:35 37.5 C 94 H 17 127/69 87 L O2 Del Method 01/19/25 20:00 01/19/25 19:30 01/19/25 19:11 01/19/25 19:11 01/19/25 18:00 Room Air 01/19/25 17:31 Room Air 01/19/25 17:30 Room Air 01/19/25 17:27 Room Air 01/19/25 16:55 01/19/25 15:35 Room Air Laboratory Results Laboratory Results WBC 16.40 K/ul (4.8-10.8) H 01/19/25 17:10 RBC 4.80 M/uL (4.70-6.10) 01/19/25 17:10 Hgb 13.8 g/dl (14.0-18.0) L 01/19/25 17:10 Hct 43.0 % (42.0-52.0) 01/19/25 17:10 MCV 89.6 fL (80.0-100.0) 01/19/25 17:10 MCH 28.8 pg (25.0-34.0) 01/19/25 17:10 MCHC 32.1 g/dL (32.0-36.0) 01/19/25 17:10 RDW Std Deviation 47.0 fL (36.4-46.3) H 01/19/25 17:10 RDW Coeff of Jocelyn 14.2 % (11.5-14.5) 01/19/25 17:10 Plt Count 263 K/uL (130-400) 01/19/25 17:10 MPV 9.1 fL (9.4-12.4) L 01/19/25 17:10 Immature Gran % (Auto) 0.4 % 01/19/25 17:10 Neut % (Auto) 81.5 % 01/19/25 17:10 Lymph % (Auto) 9.4 % 01/19/25 17:10 [place] % (Auto) 7.9 % 01/19/25 17:10 Eos % (Auto) 0.5 % 01/19/25 17:10 Baso % (Auto) 0.3 % 01/19/25 17:10 Neut # (Auto) 13.37 K/uL (1.40-6.50) H 01/19/25 17:10 Lymph # (Auto) 1.54 K/uL (1.20-3.40) 01/19/25 17:10 [place] # (Auto) 1.29 K/uL (0.11-0.59) H 01/19/25 17:10 Eos # (Auto) 0.08 K/uL (0.00-0.50) 01/19/25 17:10 Baso # (Auto) 0.05 K/uL (0.00-0.20) 01/19/25 17:10 Immature Gran # (Auto) 0.07 K/uL (0.01-0.20) 01/19/25 17:10 PT 10.9 Seconds (9.0-12.0) 01/19/25 17:10 INR 1.0 (0.9-1.1) 01/19/25 17:10 APTT 31 Seconds (21-31) 01/19/25 17:10 PTT Ratio 1.2 01/19/25 17:10 Sodium 138 mmol/L (136-145) 01/19/25 17:10 Potassium 4.1 mmol/L (3.5-5.1) 01/19/25 17:10 Chloride 100 mmol/L (98-107) 01/19/25 17:10 Carbon Dioxide 30 mmol/L (21-32) 01/19/25 17:10 Anion Gap 8 (3-11) 01/19/25 17:10 BUN 13 mg/dl (6-23) 01/19/25 17:10 Creatinine 1.13 mg/dl (0.6-1.4) 01/19/25 17:10 Est Cr Clr Drug Dosing 77.7 ml/min 01/19/25 17:10 eGFR 67.36 01/19/25 17:10 BUN/Creatinine Ratio 11.5 (10-20) 01/19/25 17:10 Glucose 112 mg/dl (70-99(Fasting)) H 01/19/25 17:10 POC Glucose 108 mg/dl (70-99) H 01/19/25 21:51 Lactate 2.0 mmol/L (0.4-2.0) 01/19/25 17:20 Calcium 8.9 mg/dl (8.6-10.3) 01/19/25 17:10 Magnesium 1.9 mg/dl (1.7-2.4) 01/19/25 17:10 Total Bilirubin 0.7 mg/dl (0.2-1.0) 01/19/25 17:10 Direct Bilirubin 0.2 mg/dl (0-0.2) 01/19/25 17:10 AST 10 U/L (13-39) L 01/19/25 17:10 ALT 7 U/L (7-52) 01/19/25 17:10 Alkaline Phosphatase 89 U/L (34-104) 01/19/25 17:10 Troponin I High Sens 7.7 pg/ml (0-20) 01/19/25 17:10 Total Protein 7.0 gm/dl (6.0-8.3) 01/19/25 17:10 Albumin 3.4 gm/dl (3.4-5.0) 01/19/25 17:10 Procalcitonin 0.05 ng/ml (0-0.5) 01/19/25 17:10 Urine Color Yellow 01/19/25 Unknown Urine Appearance Cloudy (Clear) A 01/19/25 Unknown Urine pH 6.0 (4.5-7.5) 01/19/25 Unknown Ur Specific [place] 1.011 (1.000-1.030) 01/19/25 Unknown Urine Protein Negative (Negative) 01/19/25 Unknown Urine Glucose (UA) Negative (Negative) 01/19/25 Unknown Urine Ketones Negative (Negative) 01/19/25 Unknown Urine Blood Trace (Negative) H 01/19/25 Unknown Urine Nitrite Positive (Negative) A 01/19/25 Unknown Urine Bilirubin Negative (Negative) 01/19/25 Unknown Urine Urobilinogen Negative (Negative) 01/19/25 Unknown Ur Leukocyte Esterase 3+ (Negative) H 01/19/25 Unknown Urine WBC (Auto) >50 /hpf (0-5) H 01/19/25 Unknown Urine RBC (Auto) 0-2 /hpf (0-2) 01/19/25 Unknown U Hyaline Cast (Auto) 3-5 /lpf (0-2) H 01/19/25 Unknown U Epithel Cells (Auto) 0-2 /hpf (0-2) 01/19/25 Unknown Urine Bacteria (Auto) 4+ (None Seen) H 01/19/25 Unknown Urine Comment 01/19/25 Unknown Nasal Screen MRSA (PCR) Negative (Negative) 01/19/25 20:19 Impressions Chest X-Ray 01/19/25 16:46 Chest radiograph, one view History: Chest pain Comparison: None Findings: Single AP view of the chest performed. No focal consolidation or pleural effusion. No pneumothorax. Focal scarring at the left lung base. The cardiomediastinal silhouette is within normal limits. Normal pulmonary vascularity. No evidence for lymphadenopathy. No visualized bony or soft tissue abnormality. Impression: Normal chest radiograph Electronically signed by Tariq Magdaleno 01-19-2025 5:40 PM Venous Doppler Study 01/19/25 16:46 Clinical History: Edema Technique: Venous ultrasound evaluation was performed utilizing grayscale, color Doppler and wave form evaluation. Images were also obtained with and without compression Findings: The visualized common femoral, superficial femoral, popliteal, and visualized calf veins demonstrate normal anechoic lumens with full compressibility. Normal flow is seen on color Doppler images. Expected waveforms were produced with augmentation maneuvers There are bilateral enlarged inguinal lymph nodes with fatty clifford, likely benign. There is subcutaneous edema in the left calf Impression: No definite evidence of deep venous thrombosis Electronically signed by Manuel Zamora 01-19-2025 7:18 PM Code Status & VTE Plan Code Status Full code VTE Prophylaxis Plan VTE Prophylaxis will be ordered: Yes PG Care Time/CCT Total # of Minutes Spent Total Time Spent with Patient: Total time spent is greater than 50% in coordination of care (as documented) at patient's floor/unit and/or counseling patient: Coding Level of Care Code 32266 INT INP/OBS CARE 3/75MIN Diagnoses Lower extremity cellulitis L03.119 Acute UTI N39.0 Chronic venous insufficiency I87.2 DMII (diabetes mellitus, type 2) E11.9
[2025-01-19] MEDS ORDERED: ACETAMINOPHEN 325 MG TAB PO PRN (21:33)
[2025-01-19] MEDS ORDERED: CARBOHYDRATES FOR HYPOGLYCEMIA PO PRN (21:33)
[2025-01-19] MEDS ORDERED: diphenhydrAMINE Capsule 25 MG CAP PO PRN (21:33)
[2025-01-19] MEDS ORDERED: GLUCOSE 10 TAB/TUBE PO PRN (21:33)
[2025-01-19] MEDS ORDERED: GLUCAGON FOR INJ 1 MG VIAL SQ PRN (21:33)
[2025-01-19] MEDS ORDERED: GLUCOSE 40% GEL 15 GM TUBE PO PRN (21:33)
[2025-01-19] MEDS ORDERED: DEXTROSE 50% 50 ML SYRINGE IV PRN (21:33)
[2025-01-19] MEDS ORDERED: ALBUTEROL HFA 8 GM INHALER INH PRN (21:33)
[2025-01-19] MEDS ORDERED: ONDANSETRON INJ 2 MG/ML 2 ML VIAL IV PRN (21:33)
[2025-01-19] MEDS: INSULIN ASPART PER UNIT CHARGE SC SCH (21:53)
[2025-01-19] MEDS: LACTATED RINGER'S 1,000 ML IV SCH (22:16)
[2025-01-19] MEDS: HEPARIN SOD 5,000 UNIT/0.5 ML VIAL SQ SCH (22:16)
[2025-01-19] MEDS: SIMVASTATIN 20 MG TAB PO SCH (23:06)
[2025-01-20] MEDS: CEFEPIME 2000MG 2,000 MG/20 ML SYR IV SCH (05:57)
[2025-01-20] MEDS: UMECLIDINIUM/VILANTEROL 62.5/25MCG 7 PUFFS/INHALER INH SCH (07:56)
[2025-01-20] MEDS: FLUTICASONE FUROATE 100MCG 14 PUFFS/INHALER INH SCH (07:56)
[2025-01-20] MEDS ORDERED: NON-FORMULARY MEDICATION (Fluticasone-Umeclidin-Vilanter [Trelegy Ellipta] 100-62.5-25 mcg INH SCH (09:00)
[2025-01-20] MEDS: THIAMINE HCL 200 MG in SODIUM CHLORIDE 0.9% 50 ML IV SCH (09:07)
[2025-01-20 09:41] LABS: Hematocrit (blood only) 39.6 % (42.0-52.0); Hemoglobin 12.5 g/dl (14.0-18.0); Immature Granulocytes # (auto) 0.03 K/uL (0.01-0.20); Immature Granulocytes % (auto) 0.3 %; Mean Corpuscular Hemoglobin 28.3 pg (25.0-34.0); Mean Corpuscular Volume 89.6 fL (80.0-100.0); Platelet Count 218 K/uL (130-400); RDW Standard Deviation 46.6 fL (36.4-46.3); Red Blood Count 4.42 M/uL (4.70-6.10); White Blood Count 10.42 K/ul (4.8-10.8)
[2025-01-20 09:55] LABS: Anion Gap 4.0 (3-11); Blood Urea Nitrogen 12.0 mg/dl (6-23); Calcium 8.5 mg/dl (8.6-10.3); Carbon Dioxide 30.0 mmol/L (21-32); Chloride 104.0 mmol/L (98-107); Creatinine Clr Calc Pharmacy 94.4 ml/min; Glucose 103.0 mg/dl (70-99(Fasting)); Magnesium 1.7 mg/dl (1.7-2.4); Potassium 4.0 mmol/L (3.5-5.1); Sodium 138.0 mmol/L (136-145)
[2025-01-20 10:09] LABS: Hemoglobin A1C 5.5 % (4.5-5.6)
--- NOTE | 2025-01-20 13:01 | Electrocardiogram Report ---
Test Reason : Blood Pressure : */* mmHG Vent. Rate : 82 BPM Atrial Rate : 82 BPM P-R Int : 182 ms QRS Dur : 114 ms QT Int : 398 ms P-R-T Axes : 67 10 39 degrees QTcB Int : 464 ms Normal sinus rhythm Incomplete right bundle branch block Cannot rule out Inferior infarct (cited on or before 29-Jul-2022) Abnormal ECG When compared with ECG of 25-Sep-2024 13:34, No significant change was found Confirmed by Harlan Mcdonnell ([id number]) on 01/20/2025 1:01:08 PM Referred By: REFERRED SELF Confirmed By: Harlan Mcdonnell
--- NOTE | 2025-01-20 13:55 | XCELERA ---
[id number]
--- NOTE | 2025-01-20 16:05 | Hospitalist Progress Note ---
Date of Service January 20, 2025 Assessment & Plan (1) Lower extremity cellulitis: (2) Acute UTI: (3) Chronic venous insufficiency: (4) DMII (diabetes mellitus, type 2): Plan The patient is a 75-year-old male with PMH including BPH with LUTS, chronic venous insufficiency, leg edema, type 2 diabetes, failure to thrive, COPD, impaired gait and mobility,, depression, asthma, dyslipidemia and GERD. He presents to the ER with a few days of worsening of his chronic lower extremity v enous insufficiency. and greenish drainage. . He undergoes unknown treatment by a family member at home. He reports that he comes into the ED because there is a new greenish drainage from the right lower extremity. DVT studies negative and cefepime 2 g IV. WBC elevated at 16.40. Urinalysis is suggestive of a urinary tract infection. acute b/l cellulitis with green drainage venous insufficiency, lymphedema acute UTI type 2 diabetes failure to thrive. asthma GERD acute b/l leg celluitis, venous insufficiency Bilateral lower extremity cellulitis secondary to chronic venous insufficiency right worse than left- c/w cefepime 2g q12 hour, f/u MRSA wound care duplex negative for DVT Patient looks like he would probably benefit from Unna boots bilaterally Reportedly is getting some form of wound care from a relative at home Acute urinary tract infection/BPH with LUTS- Follow urine culture and sensitivity Cefepime 2 g IV every 12 hours as noted above Nonsustained V. tach- Patient had a 9 beat run of NSVT while in the ED No previous history noted Potassium 4.1 and magnesium 1.9 The patient will be admitted to telemetry for serial cardiac enzymes, serial EKG's, cardiac rhythm monitoring and a 2-D echocardiogram with Dopplers. Initial troponin normal at 7.7 Continue diltiazem Repeat in a.m. Diabetes mellitus- Hold metformin Placed Accu-Cheks with NovoLog SSI Hypoxia/asthma/COPD/presumptive obesity hypoventilation syndrome- O2 saturation was at its lowest 87% on room air On 2 L of oxygen, he is maintained in 95-96 range Upon questioning, patient reports that he does have an oxygen unit at home, however, he does not use it because it does not think it makes a difference for him. He likely should resume it. Asked him to bring his unit in so it can be determined if it still functional Incentive spirometry Likely has obesity hypoventilation syndrome Continue inhalers: Trelegy Ellipta, and albuterol sulfate as needed Ambulatory dysfunction- Due to his body habitus, patient physical activity is restricted to transferring from bed to chair and back again He upon questioning, reports that he has never been on DVT prophylaxis other than in the hospital Placed him on heparin 5000 units SQ every 12 hours He likely should be home on DVT prophylaxis as well Hyperlipidemia- Continue simvastatin Admission and Anticipated Discharge Date Admission Date: January 19, 2025 Subjective he still has signifcant cellulitis, still need another 48 hours of cefepime Review of Systems Review of Systems: Constitutional: No Weight Change, No Fever, No Chills, No Night Sweats, No Fatigue, No Malaise Cardiovascular: No Chest Pain, No SOB, No PND, No Dyspnea on Exertion, No Orthopnea, No Claudication, No Edema, No Palpitations Respiratory: No Cough, No Sputum, No Wheezing, No Smoke Exposure, No Dyspnea Gastrointestinal: No Nausea, No Vomiting, No Diarrhea, No Constipation, No Pain, No Heartburn, No Anorexia, No Dysphagia, No Hematochezia, No Melena, No Flatulence, No Jaundice Musculoskeletal: + for b/l cellulitis. + for edema Skin: No Skin Lesions, No Pruritis, No Hair Changes, No Breast/Skin Changes, No Nipple Discharge Heme/Lymph: No Bruising, No Bleeding, No Transfusions History, No Lymphadenopathy Endocrine: No Polyuria, No Polydipsia, No Temperature Intolerance Physical Exam Physical Exam: VITALS: Reviewed. WEIGHT/BMI reviewed. GEN: Healthy appearing, well-developed, NAD. -Head: NC/AT; -Mouth and throat: MMM. Normal gums, muc yamile, palate,. Good dentition. NECK: Supple, with no masses. CV: RRR, no m/r/g. LUNGS: CTAB, no w/r/c. ABD: Soft, NT/ND, NBS, no masses or organomegaly. : N/A SKIN: + for diffuse erythema, non-tender to palpation; + for oozing MSK: No deformities, Normal gait. EXT: No clubbing, cyanosis, or edema. NEURO: AAOx3. Results & Data Results & Data Vital Signs (Past 12 Hours) Vital Signs Temp Pulse Pulse Resp BP Pulse Ox O2 Del Method 01/20/25 14:42 71 01/20/25 11:36 36.5 C 86 18 118/63 96 Nasal Cannula 01/20/25 08:00 Nasal Cannula 01/20/25 08:00 81 01/20/25 08:00 36.4 C L 96 H 16 132/70 96 Nasal Cannula O2 Flow Rate 01/20/25 14:42 01/20/25 11:36 2 01/20/25 08:00 2 01/20/25 08:00 01/20/25 08:00 2 Laboratory Results Laboratory Results - last 72 hr 01/19/25 01/19/25 01/19/25 17:10 17:20 20:19 WBC 16.40 H RBC 4.80 Hgb 13.8 L Hct 43.0 MCV 89.6 MCH 28.8 MCHC 32.1 RDW Std Deviation 47.0 H RDW Coeff of Jocelyn 14.2 Plt Count 263 MPV 9.1 L Immature Gran % (Auto) 0.4 Neut % (Auto) 81.5 Lymph % (Auto) 9.4 Coleman % (Auto) 7.9 Eos % (Auto) 0.5 Baso % (Auto) 0.3 Neut # (Auto) 13.37 H Lymph # (Auto) 1.54 Coleman # (Auto) 1.29 H Eos # (Auto) 0.08 Baso # (Auto) 0.05 Immature Gran # (Auto) 0.07 PT 10.9 INR 1.0 APTT 31 PTT Ratio 1.2 Sodium 138 Potassium 4.1 Chloride 100 Carbon Dioxide 30 Anion Gap 8 BUN 13 Creatinine 1.13 Est Cr Clr Drug Dosing 77.7 eGFR 67.36 BUN/Creatinine Ratio 11.5 Glucose 112 H POC Glucose Estimat Average Glucose Hemoglobin A1c Lactate 2.0 Calcium 8.9 Phosphorus Magnesium 1.9 Total Bilirubin 0.7 Direct Bilirubin 0.2 AST 10 L ALT 7 Alkaline Phosphatase 89 Troponin I High Sens 7.7 Total Protein 7.0 Albumin 3.4 Procalcitonin 0.05 Urine Color Urine Appearance Urine pH Ur Specific Beach Urine Protein Urine Glucose (UA) Urine Ketones Urine Blood Urine Nitrite Urine Bilirubin Urine Urobilinogen Ur Leukocyte Esterase Urine WBC (Auto) Urine RBC (Auto) U Hyaline Cast (Auto) U Epithel Cells (Auto) Urine Bacteria (Auto) Urine Comment Nasal Screen MRSA (PCR) Negative 01/19/25 01/19/25 01/20/25 21:51 Unknown 07:26 WBC RBC Hgb Hct MCV MCH MCHC RDW Std Deviation RDW Coeff of Jocelyn Plt Count MPV Immature Gran % (Auto) Neut % (Auto) Lymph % (Auto) Coleman % (Auto) Eos % (Auto) Baso % (Auto) Neut # (Auto) Lymph # (Auto) Coleman # (Auto) Eos # (Auto) Baso # (Auto) Immature Gran # (Auto) PT INR APTT PTT Ratio Sodium Potassium Chloride Carbon Dioxide Anion Gap BUN Creatinine Est Cr Clr Drug Dosing eGFR BUN/Creatinine Ratio Glucose POC Glucose 108 H 112 H Estimat Average Glucose Hemoglobin A1c Lactate Calcium Phosphorus Magnesium Total Bilirubin Direct Bilirubin AST ALT Alkaline Phosphatase Troponin I High Sens Total Protein Albumin Procalcitonin Urine Color Yellow Urine Appearance Cloudy A Urine pH 6.0 Ur Specific Beach 1.011 Urine Protein Negative Urine Glucose (UA) Negative Urine Ketones Negative Urine Blood Trace H Urine Nitrite Positive A Urine Bilirubin Negative Urine Urobilinogen Negative Ur Leukocyte Esterase 3+ H Urine WBC (Auto) >50 H Urine RBC (Auto) 0-2 U Hyaline Cast (Auto) 3-5 H U Epithel Cells (Auto) 0-2 Urine Bacteria (Auto) 4+ H Urine Comment Nasal Screen MRSA (PCR) 01/20/25 01/20/25 09:06 11:38 WBC 10.42 RBC 4.42 L Hgb 12.5 L Hct 39.6 L MCV 89.6 MCH 28.3 MCHC 31.6 L RDW Std Deviation 46.6 H RDW Coeff of Jocelyn 14.2 Plt Count 218 MPV 9.1 L Immature Gran % (Auto) 0.3 Neut % (Auto) 70.1 Lymph % (Auto) 17.3 Coleman % (Auto) 9.0 Eos % (Auto) 3.0 Baso % (Auto) 0.3 Neut # (Auto) 7.31 H Lymph # (Auto) 1.80 Coleman # (Auto) 0.94 H Eos # (Auto) 0.31 Baso # (Auto) 0.03 Immature Gran # (Auto) 0.03 PT INR APTT PTT Ratio Sodium 138 Potassium 4.0 Chloride 104 Carbon Dioxide 30 Anion Gap 4 BUN 12 Creatinine 0.93 Est Cr Clr Drug Dosing 94.4 eGFR 85.10 BUN/Creatinine Ratio 12.9 Glucose 103 H POC Glucose 86 Estimat Average Glucose 111 Hemoglobin A1c 5.5 Lactate Calcium 8.5 L Phosphorus 3.2 Magnesium 1.7 Total Bilirubin Direct Bilirubin AST ALT Alkaline Phosphatase Troponin I High Sens Total Protein Albumin 3.1 L Procalcitonin Urine Color Urine Appearance Urine pH Ur Specific [place] Urine Protein Urine Glucose (UA) Urine Ketones Urine Blood Urine Nitrite Urine Bilirubin Urine Urobilinogen Ur Leukocyte Esterase Urine WBC (Auto) Urine RBC (Auto) U Hyaline Cast (Auto) U Epithel Cells (Auto) Urine Bacteria (Auto) Urine Comment Nasal Screen MRSA (PCR) Diagnostic Findings Chest X-Ray 01/19/25 16:46 Chest radiograph, one view History: Chest pain Comparison: None Findings: Single AP view of the chest performed. No focal consolidation or pleural effusion. No pneumothorax. Focal scarring at the left lung base. The cardiomediastinal silhouette is within normal limits. Normal pulmonary vascularity. No evidence for lymphadenopathy. No visualized bony or soft tissue abnormality. Impression: Normal chest radiograph Electronically signed by Tariq Magdaleno 01-19-2025 5:40 PM Venous Doppler Study 01/19/25 16:46 Clinical History: Edema Technique: Venous ultrasound evaluation was performed utilizing grayscale, color Doppler and wave form evaluation. Images were also obtained with and without compression Findings: The visualized common femoral, superficial femoral, popliteal, and visualized calf veins demonstrate normal anechoic lumens with full compressibility. Normal flow is seen on color Doppler images. Expected waveforms were produced with augmentation maneuvers There are bilateral enlarged inguinal lymph nodes with fatty clifford, likely benign. There is subcutaneous edema in the left calf Impression: No definite evidence of deep venous thrombosis Electronically signed by Manuel Zamora 01-19-2025 7:18 PM Medications Administered Current Inpatient Medications Acetaminophen (Acetaminophen 325 Mg Tab) 650 mg PO Q4H PRN PRN Reason: Pain or Fever Stop: 02/18/25 21:32 Albuterol (Albuterol Hfa 8 Gm Inhaler) 2 puffs INH 6XD PRN PRN Reason: shortness of breath or wheezin Stop: 02/18/25 21:32 Ascorbic Acid (Ascorbic Acid 500 Mg Tab) 500 mg PO QAM [facility] Stop: 02/20/25 08:59 Dextrose (Dextrose 50% 50 Ml Syringe) 25 - 50 ml IV UD PRN; Protocol PRN Reason: Hypoglycemia Protocol Stop: 02/18/25 21:32 Diltiazem HCl (Diltiazem Hcl 300 Mg Capcr) 300 mg PO QAM [facility] Stop: 02/19/25 08:59 Last Admin: 01/20/25 07:55 Dose: 300 mg Diphenhydramine HCl (Diphenhydramine Capsule 25 Mg Cap) 25 mg PO HS PRN PRN Reason: Sleep Fluticasone Furoate (Fluticasone Furoate 100mcg 14 Puffs/Inhaler) 1 puffs INH DAILY [facility] Stop: 02/19/25 08:59 Last Admin: 01/20/25 07:56 Dose: 1 puffs Glucagon (Glucagon For Inj 1 Mg Vial) 1 mg SQ UD PRN; Protocol PRN Reason: Hypoglycemia Protocol Stop: 02/18/25 21:32 Glucose (Glucose 40% Gel 15 Gm Tube) 15 - 30 gm PO UD PRN; Protocol PRN Reason: Hypoglycemia Protocol Stop: 02/18/25 21:32 Glucose (Glucose 10 Tab/Tube) 4 - 8 tab PO UD PRN; Protocol PRN Reason: Hypoglycemia Protocol Stop: 02/18/25 21:32 Heparin Sodium (Porcine) (Heparin Sod 5,000 Unit/0.5 Ml Vial) 5,000 units SQ Q12 [facility] Stop: 02/18/25 21:32 Last Admin: 01/20/25 08:01 Dose: 5,000 units Hydroxyzine HCl (Hydroxyzine Hcl 25 Mg Tab) 25 mg PO BID PRN PRN Reason: itching Stop: 02/18/25 21:32 Cefepime HCl (Maxipime 2000mg) 2,000 mg in 20 mls @ 5 mls/min IV Q12H [facility]; Protocol Stop: 01/27/25 05:59 Last Admin: 01/20/25 05:57 Dose: 5 mls/min Thiamine HCl 200 mg/ Sodium (Chloride) 52 mls @ 210 mls/hr IV QAM [facility] Stop: 02/19/25 08:59 Last Infusion: 01/20/25 09:22 Dose: Infused Insulin Aspart (Insulin Aspart Per Unit Charge) 0 units SC ACHS [facility] Stop: 02/18/25 21:32 Last Admin: 01/20/25 11:40 Dose: Not Given Miscellaneous (Carbohydrates For Hypoglycemia ) 15 - 30 gm PO UD PRN PRN Reason: Hypoglycemia Protocol Stop: 02/18/25 21:32 Ondansetron HCl (Ondansetron Inj 2 Mg/Ml 2 Ml Vial) 4 mg IV Q6H PRN PRN Reason: NAUSEA/VOMITING Stop: 02/18/25 21:32 Simvastatin (Simvastatin 20 Mg Tab) 20 mg PO QPM [facility] Stop: 02/18/25 21:32 Last Admin: 01/19/25 23:06 Dose: 20 mg Umeclidinium/Vilanterol (Umeclidinium/Vilanterol 62.5/25mcg 7 Puffs/Inhaler) 1 puffs INH DAILY [facility] Stop: 02/19/25 08:59 Last Admin: 01/20/25 07:56 Dose: 1 puffs Zinc Sulfate (Zinc Sulfate 220 Mg Capsule) 220 mg PO QAM [facility] Stop: 02/20/25 08:59 PG Care Time/CCT Total # of Minutes Spent Total Time Spent with Patient: Total time spent is greater than 50% in coordination of care (as documented) at patient's floor/unit and/or counseling patient: Coding Level of Care Code 05696 SUB INP/OBS CARE 2/35MIN Diagnoses Lower extremity cellulitis L03.119 Acute UTI N39.0 Chronic venous insufficiency I87.2 DMII (diabetes mellitus, type 2) E11.9 Time Spent (min) 35
[2025-01-21 07:10] LABS: Hematocrit (blood only) 36.9 % (42.0-52.0); Hemoglobin 12.2 g/dl (14.0-18.0); Immature Granulocytes # (auto) 0.03 K/uL (0.01-0.20); Immature Granulocytes % (auto) 0.3 %; Mean Corpuscular Hemoglobin 29.3 pg (25.0-34.0); Mean Corpuscular Volume 88.5 fL (80.0-100.0); Platelet Count 231 K/uL (130-400); RDW Standard Deviation 45.1 fL (36.4-46.3); Red Blood Count 4.17 M/uL (4.70-6.10); White Blood Count 10.12 K/ul (4.8-10.8)
[2025-01-21 07:34] LABS: Anion Gap 5.0 (3-11); Blood Urea Nitrogen 14.0 mg/dl (6-23); Calcium 8.3 mg/dl (8.6-10.3); Carbon Dioxide 28.0 mmol/L (21-32); Chloride 106.0 mmol/L (98-107); Creatinine Clr Calc Pharmacy 89.7 ml/min; Glucose 121.0 mg/dl (70-99(Fasting)); Magnesium 1.8 mg/dl (1.7-2.4); Potassium 4.0 mmol/L (3.5-5.1); Sodium 139.0 mmol/L (136-145)
[2025-01-21] MEDS: ASCORBIC ACID 500 MG TAB PO SCH (08:15)
[2025-01-21] MEDS: ZINC SULFATE 220 MG CAPSULE PO SCH (08:15)
--- NOTE | 2025-01-21 18:16 | Hospitalist Progress Note ---
Date of Service January 21, 2025 Assessment & Plan (1) Lower extremity cellulitis: (2) Acute UTI: (3) Chronic venous insufficiency: (4) DMII (diabetes mellitus, type 2): Plan The patient is a 75-year-old male with PMH including BPH with LUTS, chronic venous insufficiency, leg edema, type 2 diabetes, failure to thrive, COPD, impaired gait and mobility,, depression, asthma, and GERD. He presents to the ER with a few days of worsening lower extremity, cellulitis, venous insuffici ency. and greenish drainage. He undergoes unknown treatment by a family member at home. He reports that he comes into the ED because there is a new greenish drainage from the right lower extremity. DVT studies negative and cefepime 2 g IV. WBC elevated at 16.40. Urinalysis is suggestive of a urinary tract infection. acute b/l cellulitis with green drainage venous insufficiency, lymphedema acute UTI type 2 diabetes failure to thrive. asthma GERD acute b/l leg celluitis, venous insufficiency Bilateral lower extremity cellulitis secondary to chronic venous insufficiency right worse than left MRSA negative c/w cefepime 2g q12 hour, f/u MRSA wound care evaluate him on 01/21 duplex negative for DVT Patient looks like he would probably benefit from Unna boots bilaterally Reportedly is getting some form of wound care from grand-daughter at home Acute urinary tract infection/BPH with LUTS- Follow urine culture and sensitivity Cefepime 2 g IV every 12 hours as noted above Nonsustained V. tach- Patient had a 9 beat run of NSVT while in the ED Potassium 4.1 and magnesium 1.9 f/u on echo, continue telemetry Initial troponin normal at 7.7 Continue diltiazem Repeat in a.m. Diabetes mellitus- Hold metformin Placed Accu-Cheks with NovoLog SSI his glucose been less than 180 Hypoxia/asthma/COPD/presumptive obesity hypoventilation syndrome- trial of cpap tonight O2 saturation was at its lowest 87% on room air On 2 L of oxygen, he is maintained in 95-96 range Upon questioning, patient reports that he does have an oxygen unit at home, however, he does not use it because it does not think it makes a difference for him. He likely should resume it. Asked him to bring his unit in so it can be determined if it still functional Incentive spirometry Likely has obesity hypoventilation syndrome Continue inhalers: Trelegy Ellipta, and albuterol sulfate as needed Ambulatory dysfunction- Due to his body habitus, patient physical activity is restricted to transferring from bed to chair and back again He upon questioning, reports that he has never been on DVT prophylaxis other than in the hospital Placed him on heparin 5000 units SQ every 12 hours He likely should be home on DVT prophylaxis as well Hyperlipidemia- Continue simvastatin Admission and Anticipated Discharge Date Admission Date: January 19, 2025 Subjective his b/l cellulitis still has limited improvement, do not expect dc prior to saturday/Saturday spoke with wound care nurse, defer compression for now given significant cellulitis in addition, PT and OT to evaluate him he been mostly home bound. he's on heparin for dVT prophylaxis Review of Systems Review of Systems: Constitutional: No Weight Change, No Fever, No Chills, No Night Sweats, No Fatigue, No Malaise Cardiovascular: No Chest Pain, No SOB, No PND, No Dyspnea on Exertion, No Orthopnea, No Claudication, No Edema, No Palpitations Respiratory: No Cough, No Sputum, No Wheezing, No Smoke Exposure, No Dyspnea Gastrointestinal: No Nausea, No Vomiting, No Diarrhea, No Constipation, No Pain, No Heartburn, No Anorexia, No Dysphagia, No Hematochezia, No Melena, No Flatulence, No Jaundice Musculoskeletal: + for cellultis; + for drainage; + for lymphedema Skin: + for skin lesion; oozing decreasing Heme/Lymph: No Bruising, No Bleeding, No Transfusions History, No Lymphadenopathy Endocrine: No Polyuria, No Polydipsia, No Temperature Intolerance Physical Exam Physical Exam: VITALS: Reviewed. WEIGHT/BMI reviewed. GEN: Healthy appearing, well-developed, NAD. PSYCH: Good Judgment. AOx3. Normal memory, mood, and affect. HEENT -Head: NC/AT; NECK: Supple, with no masses. CV: RRR, no m/r/g. LUNGS: CTAB, no w/r/c. ABD: Soft, NT/ND, NBS, no masses or organomegaly. : N/A SKIN: + for large cellulitis; no crepitus noted; erythema around the same no discharged noted MSK: No deformities, Normal gait. EXT: No clubbing, cyanosis, or edema. NEURO: AAOx3; Results & Data Results & Data Vital Signs (Past 12 Hours) Vital Signs Temp Pulse Pulse Resp BP Pulse Ox O2 Del Method 01/21/25 15:00 36.5 C 74 20 111/68 96 Nasal Cannula 01/21/25 14:39 75 01/21/25 12:00 36.8 C 89 18 107/67 97 Nasal Cannula 01/21/25 08:00 Nasal Cannula 01/21/25 08:00 36.7 C 74 20 100/70 96 Nasal Cannula O2 Flow Rate 01/21/25 15:00 2 01/21/25 14:39 01/21/25 12:00 2 01/21/25 08:00 2 01/21/25 08:00 2 Laboratory Results Laboratory Results - last 72 hr 01/19/25 01/19/25 01/19/25 17:10 17:20 20:19 WBC 16.40 H RBC 4.80 Hgb 13.8 L Hct 43.0 MCV 89.6 MCH 28.8 MCHC 32.1 RDW Std Deviation 47.0 H RDW Coeff of Jocelyn 14.2 Plt Count 263 MPV 9.1 L Immature Gran % (Auto) 0.4 Neut % (Auto) 81.5 Lymph % (Auto) 9.4 [place] % (Auto) 7.9 Eos % (Auto) 0.5 Baso % (Auto) 0.3 Neut # (Auto) 13.37 H Lymph # (Auto) 1.54 [place] # (Auto) 1.29 H Eos # (Auto) 0.08 Baso # (Auto) 0.05 Immature Gran # (Auto) 0.07 PT 10.9 INR 1.0 APTT 31 PTT Ratio 1.2 Sodium 138 Potassium 4.1 Chloride 100 Carbon Dioxide 30 Anion Gap 8 BUN 13 Creatinine 1.13 Est Cr Clr Drug Dosing 77.7 eGFR 67.36 BUN/Creatinine Ratio 11.5 Glucose 112 H POC Glucose Estimat Average Glucose Hemoglobin A1c Lactate 2.0 Calcium 8.9 Phosphorus Magnesium 1.9 Total Bilirubin 0.7 Direct Bilirubin 0.2 AST 10 L ALT 7 Alkaline Phosphatase 89 Troponin I High Sens 7.7 Total Protein 7.0 Albumin 3.4 Procalcitonin 0.05 Urine Color Urine Appearance Urine pH Ur Specific [place] Urine Protein Urine Glucose (UA) Urine Ketones Urine Blood Urine Nitrite Urine Bilirubin Urine Urobilinogen Ur Leukocyte Esterase Urine WBC (Auto) Urine RBC (Auto) U Hyaline Cast (Auto) U Epithel Cells (Auto) Urine Bacteria (Auto) Urine Comment Nasal Screen MRSA (PCR) Negative 01/19/25 01/19/25 01/20/25 21:51 Unknown 07:26 WBC RBC Hgb Hct MCV MCH MCHC RDW Std Deviation RDW Coeff of Jocelyn Plt Count MPV Immature Gran % (Auto) Neut % (Auto) Lymph % (Auto) [place] % (Auto) Eos % (Auto) Baso % (Auto) Neut # (Auto) Lymph # (Auto) [place] # (Auto) Eos # (Auto) Baso # (Auto) Immature Gran # (Auto) PT INR APTT PTT Ratio Sodium Potassium Chloride Carbon Dioxide Anion Gap BUN Creatinine Est Cr Clr Drug Dosing eGFR BUN/Creatinine Ratio Glucose POC Glucose 108 H 112 H Estimat Average Glucose Hemoglobin A1c Lactate Calcium Phosphorus Magnesium Total Bilirubin Direct Bilirubin AST ALT Alkaline Phosphatase Troponin I High Sens Total Protein Albumin Procalcitonin Urine Color Yellow Urine Appearance Cloudy A Urine pH 6.0 Ur Specific [place] 1.011 Urine Protein Negative Urine Glucose (UA) Negative Urine Ketones Negative Urine Blood Trace H Urine Nitrite Positive A Urine Bilirubin Negative Urine Urobilinogen Negative Ur Leukocyte Esterase 3+ H Urine WBC (Auto) >50 H Urine RBC (Auto) 0-2 U Hyaline Cast (Auto) 3-5 H U Epithel Cells (Auto) 0-2 Urine Bacteria (Auto) 4+ H Urine Comment Nasal Screen MRSA (PCR) 01/20/25 01/20/25 01/20/25 09:06 11:38 16:32 WBC 10.42 RBC 4.42 L Hgb 12.5 L Hct 39.6 L MCV 89.6 MCH 28.3 MCHC 31.6 L RDW Std Deviation 46.6 H RDW Coeff of Jocelyn 14.2 Plt Count 218 MPV 9.1 L Immature Gran % (Auto) 0.3 Neut % (Auto) 70.1 Lymph % (Auto) 17.3 [place] % (Auto) 9.0 Eos % (Auto) 3.0 Baso % (Auto) 0.3 Neut # (Auto) 7.31 H Lymph # (Auto) 1.80 [place] # (Auto) 0.94 H Eos # (Auto) 0.31 Baso # (Auto) 0.03 Immature Gran # (Auto) 0.03 PT INR APTT PTT Ratio Sodium 138 Potassium 4.0 Chloride 104 Carbon Dioxide 30 Anion Gap 4 BUN 12 Creatinine 0.93 Est Cr Clr Drug Dosing 94.4 eGFR 85.10 BUN/Creatinine Ratio 12.9 Glucose 103 H POC Glucose 86 101 H Estimat Average Glucose 111 Hemoglobin A1c 5.5 Lactate Calcium 8.5 L Phosphorus 3.2 Magnesium 1.7 Total Bilirubin Direct Bilirubin AST ALT Alkaline Phosphatase Troponin I High Sens Total Protein Albumin 3.1 L Procalcitonin Urine Color Urine Appearance Urine pH Ur Specific [place] Urine Protein Urine Glucose (UA) Urine Ketones Urine Blood Urine Nitrite Urine Bilirubin Urine Urobilinogen Ur Leukocyte Esterase Urine WBC (Auto) Urine RBC (Auto) U Hyaline Cast (Auto) U Epithel Cells (Auto) Urine Bacteria (Auto) Urine Comment Nasal Screen MRSA (PCR) 01/20/25 01/21/25 01/21/25 20:22 05:38 07:26 WBC 10.12 RBC 4.17 L Hgb 12.2 L Hct 36.9 L MCV 88.5 MCH 29.3 MCHC 33.1 RDW Std Deviation 45.1 RDW Coeff of Jocelyn 14.0 Plt Count 231 MPV 9.7 Immature Gran % (Auto) 0.3 Neut % (Auto) 65.8 Lymph % (Auto) 19.8 [place] % (Auto) 8.2 Eos % (Auto) 5.4 Baso % (Auto) 0.5 Neut # (Auto) 6.66 H Lymph # (Auto) 2.00 [place] # (Auto) 0.83 H Eos # (Auto) 0.55 H Baso # (Auto) 0.05 Immature Gran # (Auto) 0.03 PT INR APTT PTT Ratio Sodium 139 Potassium 4.0 Chloride 106 Carbon Dioxide 28 Anion Gap 5 BUN 14 Creatinine 0.98 Est Cr Clr Drug Dosing 89.7 eGFR 79.92 BUN/Creatinine Ratio 14.3 Glucose 121 H POC Glucose 123 H 117 H Estimat Average Glucose Hemoglobin A1c Lactate Calcium 8.3 L Phosphorus 2.9 Magnesium 1.8 Total Bilirubin Direct Bilirubin AST ALT Alkaline Phosphatase Troponin I High Sens Total Protein Albumin 2.9 L Procalcitonin Urine Color Urine Appearance Urine pH Ur Specific [place] Urine Protein Urine Glucose (UA) Urine Ketones Urine Blood Urine Nitrite Urine Bilirubin Urine Urobilinogen Ur Leukocyte Esterase Urine WBC (Auto) Urine RBC (Auto) U Hyaline Cast (Auto) U Epithel Cells (Auto) Urine Bacteria (Auto) Urine Comment Nasal Screen MRSA (PCR) 01/21/25 01/21/25 11:30 16:15 WBC RBC Hgb Hct MCV MCH MCHC RDW Std Deviation RDW Coeff of Jocelyn Plt Count MPV Immature Gran % (Auto) Neut % (Auto) Lymph % (Auto) [place] % (Auto) Eos % (Auto) Baso % (Auto) Neut # (Auto) Lymph # (Auto) [place] # (Auto) Eos # (Auto) Baso # (Auto) Immature Gran # (Auto) PT INR APTT PTT Ratio Sodium Potassium Chloride Carbon Dioxide Anion Gap BUN Creatinine Est Cr Clr Drug Dosing eGFR BUN/Creatinine Ratio Glucose POC Glucose 100 H 116 H Estimat Average Glucose Hemoglobin A1c Lactate Calcium Phosphorus Magnesium Total Bilirubin Direct Bilirubin AST ALT Alkaline Phosphatase Troponin I High Sens Total Protein Albumin Procalcitonin Urine Color Urine Appearance Urine pH Ur Specific [place] Urine Protein Urine Glucose (UA) Urine Ketones Urine Blood Urine Nitrite Urine Bilirubin Urine Urobilinogen Ur Leukocyte Esterase Urine WBC (Auto) Urine RBC (Auto) U Hyaline Cast (Auto) U Epithel Cells (Auto) Urine Bacteria (Auto) Urine Comment Nasal Screen MRSA (PCR) Diagnostic Findings Venous Doppler Study 01/19/25 16:46 Clinical History: Edema Technique: Venous ultrasound evaluation was performed utilizing grayscale, color Doppler and wave form evaluation. Images were also obtained with and without compression Findings: The visualized common femoral, superficial femoral, popliteal, and visualized calf veins demonstrate normal anechoic lumens with full compressibility. Normal flow is seen on color Doppler images. Expected waveforms were produced with augmentation maneuvers There are bilateral enlarged inguinal lymph nodes with fatty clifford, likely benign. There is subcutaneous edema in the left calf Impression: No definite evidence of deep venous thrombosis Electronically signed by Manuel Zamora 01-19-2025 7:18 PM Medications Administered Current Inpatient Medications Acetaminophen (Acetaminophen 325 Mg Tab) 650 mg PO Q4H PRN PRN Reason: Pain or Fever Stop: 02/18/25 21:32 Albuterol (Albuterol Hfa 8 Gm Inhaler) 2 puffs INH 6XD PRN PRN Reason: shortness of breath or wheezin Stop: 02/18/25 21:32 Ascorbic Acid (Ascorbic Acid 500 Mg Tab) 500 mg PO QAM [facility] Stop: 02/20/25 08:59 Last Admin: 01/21/25 08:15 Dose: 500 mg Dextrose (Dextrose 50% 50 Ml Syringe) 25 - 50 ml IV UD PRN; Protocol PRN Reason: Hypoglycemia Protocol Stop: 02/18/25 21:32 Diltiazem HCl (Diltiazem Hcl 300 Mg Capcr) 300 mg PO QAM [facility] Stop: 02/19/25 08:59 Last Admin: 01/21/25 08:15 Dose: 300 mg Diphenhydramine HCl (Diphenhydramine Capsule 25 Mg Cap) 25 mg PO HS PRN PRN Reason: Sleep Fluticasone Furoate (Fluticasone Furoate 100mcg 14 Puffs/Inhaler) 1 puffs INH DAILY [facility] Stop: 02/19/25 08:59 Last Admin: 01/21/25 08:16 Dose: 1 puffs Glucagon (Glucagon For Inj 1 Mg Vial) 1 mg SQ UD PRN; Protocol PRN Reason: Hypoglycemia Protocol Stop: 02/18/25 21:32 Glucose (Glucose 40% Gel 15 Gm Tube) 15 - 30 gm PO UD PRN; Protocol PRN Reason: Hypoglycemia Protocol Stop: 02/18/25 21:32 Glucose (Glucose 10 Tab/Tube) 4 - 8 tab PO UD PRN; Protocol PRN Reason: Hypoglycemia Protocol Stop: 02/18/25 21:32 Heparin Sodium (Porcine) (Heparin Sod 5,000 Unit/0.5 Ml Vial) 5,000 units SQ Q12 [facility] Stop: 02/18/25 21:32 Last Admin: 01/21/25 08:21 Dose: 5,000 units Hydroxyzine HCl (Hydroxyzine Hcl 25 Mg Tab) 25 mg PO BID PRN PRN Reason: itching Stop: 02/18/25 21:32 Cefepime HCl (Maxipime 2000mg) 2,000 mg in 20 mls @ 5 mls/min IV Q12H [facility]; Protocol Stop: 01/27/25 05:59 Last Admin: 01/21/25 17:52 Dose: 5 mls/min Thiamine HCl 200 mg/ Sodium (Chloride) 52 mls @ 210 mls/hr IV QAM [facility] Stop: 02/19/25 08:59 Last Infusion: 01/21/25 09:09 Dose: Infused Insulin Aspart (Insulin Aspart Per Unit Charge) 0 units SC ACHS [facility] Stop: 02/18/25 21:32 Last Admin: 01/21/25 16:51 Dose: 3 units Miscellaneous (Carbohydrates For Hypoglycemia ) 15 - 30 gm PO UD PRN PRN Reason: Hypoglycemia Protocol Stop: 02/18/25 21:32 Ondansetron HCl (Ondansetron Inj 2 Mg/Ml 2 Ml Vial) 4 mg IV Q6H PRN PRN Reason: NAUSEA/VOMITING Stop: 02/18/25 21:32 Simvastatin (Simvastatin 20 Mg Tab) 20 mg PO QPM [facility] Stop: 02/18/25 21:32 Last Admin: 01/20/25 20:46 Dose: 20 mg Umeclidinium/Vilanterol (Umeclidinium/Vilanterol 62.5/25mcg 7 Puffs/Inhaler) 1 puffs INH DAILY [facility] Stop: 02/19/25 08:59 Last Admin: 01/21/25 08:15 Dose: 1 puffs Zinc Sulfate (Zinc Sulfate 220 Mg Capsule) 220 mg PO QAM [facility] Stop: 02/20/25 08:59 Last Admin: 01/21/25 08:15 Dose: 220 mg PG Care Time/CCT Total # of Minutes Spent Total Time Spent with Patient: Total time spent is greater than 50% in coordination of care (as documented) at patient's floor/unit and/or counseling patient: Coding Level of Care Code 19864 SUB INP/OBS CARE 2/35MIN Diagnoses Lower extremity cellulitis L03.119 Acute UTI N39.0 Chronic venous insufficiency I87.2 DMII (diabetes mellitus, type 2) E11.9 Time Spent (min) 35
[2025-01-21] MEDS ORDERED: ENOXAPARIN 1 MG/KG SQ SCH (18:30)
[2025-01-21] MEDS: ENOXAPARIN 80 MG/0.8 ML SYR SQ SCH (20:32)
[2025-01-22 07:33] LABS: Hematocrit (blood only) 38.8 % (42.0-52.0); Hemoglobin 12.2 g/dl (14.0-18.0); Immature Granulocytes # (auto) 0.04 K/uL (0.01-0.20); Immature Granulocytes % (auto) 0.5 %; Mean Corpuscular Hemoglobin 28.0 pg (25.0-34.0); Mean Corpuscular Volume 89.2 fL (80.0-100.0); Platelet Count 232 K/uL (130-400); RDW Standard Deviation 45.5 fL (36.4-46.3); Red Blood Count 4.35 M/uL (4.70-6.10); White Blood Count 8.85 K/ul (4.8-10.8)
[2025-01-22 07:52] LABS: Alanine Aminotransferase 6.0 U/L (7-52); Albumin Globulin Ratio 1.0 (0.9-2); Alkaline Phosphatase 62.0 U/L (34-104); Anion Gap 7.0 (3-11); Bilirubin,Total 0.6 mg/dl (0.2-1.0); Blood Urea Nitrogen 12.0 mg/dl (6-23); Calcium 8.4 mg/dl (8.6-10.3); Carbon Dioxide 27.0 mmol/L (21-32); Chloride 106.0 mmol/L (98-107); Creatinine Clr Calc Pharmacy 86.1 ml/min; Globulin 3.1 gm/dl (2.5-4.0); Glucose 97.0 mg/dl (70-99(Fasting)); Magnesium 1.8 mg/dl (1.7-2.4); Potassium 3.8 mmol/L (3.5-5.1); Sodium 140.0 mmol/L (136-145); Total Protein 6.1 gm/dl (6.0-8.3)
--- NOTE | 2025-01-22 09:39 | Hospitalist Progress Note ---
Date of Service January 22, 2025 Assessment & Plan (1) Lower extremity cellulitis: (2) Acute UTI: (3) Chronic venous insufficiency: (4) DMII (diabetes mellitus, type 2): Plan The patient is a 75-year-old male with PMH including BPH with LUTS, chronic venous insufficiency, leg edema, type 2 diabetes, failure to thrive, COPD, impaired gait and mobility,, depression, asthma, and GERD. He presents to the ER with a few days of worsening lower extremity, cellulitis, venous insuffici ency. and greenish drainage. He undergoes unknown treatment by a family member at home. He reports that he comes into the ED because there is a new greenish drainage from the right lower extremity. DVT studies negative and cefepime 2 g IV. WBC elevated at 16.40. Urinalysis is suggestive of a urinary tract infection. acute b/l cellulitis with green drainage venous insufficiency, lymphedema acute UTI type 2 diabetes failure to thrive. asthma GERD acute b/l leg celluitis, venous insufficiency Bilateral lower extremity cellulitis secondary to chronic venous insufficiency right worse than left MRSA negative switching to cefazolin q8 hours. added lasix (was on cefepime) doxycycline wound care evaluate him on 01/21 duplex negative for DVT Patient looks like he would probably benefit from Unna boots bilaterally Reportedly is getting some form of wound care from grand-daughter at home deposition discharge 48-72 hours away he's does not want senior care placement Acute urinary tract infection/BPH with LUTS- Follow urine culture and sensitivity he was on cefepime (stop on 01/22 morning) Nonsustained V. tach- Patient had a 9 beat run of NSVT while in the ED Potassium 4.1 and magnesium 1.9 f/u on echo, continue telemetry Initial troponin normal at 7.7 Continue diltiazem Repeat in a.m. Diabetes mellitus- Hold metformin Placed Accu-Cheks with NovoLog SSI his glucose been less than 180 Hypoxia/asthma/COPD/presumptive obesity hypoventilation syndrome- trial of cpap tonight O2 saturation was at its lowest 87% on room air On 2 L of oxygen, he is maintained in 95-96 range Upon questioning, patient reports that he does have an oxygen unit at home, however, he does not use it because it does not think it makes a difference for him. He likely should resume it. Asked him to bring his unit in so it can be determined if it still functional Incentive spirometry Likely has obesity hypoventilation syndrome Trelegy Ellipta, and albuterol sulfate as needed Ambulatory dysfunction- Due to his body habitus, patient physical activity is restricted to transferring from bed to chair and back again DVT prophylaxis he on lovenox 70mg q12 hours Hyperlipidemia- Continue simvastatin Admission and Anticipated Discharge Date Admission Date: January 19, 2025 Subjective cellulitis slightly improved, switching cefepime to cefazolin lasix for lymphedema he's does not want senior care placmenet he's need home services for dressing change he should has DVT prophylaxis, he's on lovenox 70 q12 hours Review of Systems Review of Systems: Constitutional: No Weight Change, No Fever, No Chills, No Night Sweats, No Fatigue, No Malaise Cardiovascular: No Chest Pain, No SOB, No PND, No Dyspnea on Exertion, No Or thopnea, No Claudication, No Edema, No Palpitations Respiratory: No Cough, No Sputum, No Wheezing, No Smoke Exposure, No Dyspnea Gastrointestinal: No Nausea, No Vomiting, No Diarrhea, No Constipation, No Pain, No Heartburn Musculoskeletal: + for edema Skin: + for skin lesion; discharging improving. no bleeding Neuro: No Weakness, No Numbness, No Paresthesias, No Loss of Consciousness, No Syncope, No Dizziness, No Headache, No Coordination Changes, No Recent Falls Physical Exam Physical Exam: VITALS: Reviewed. WEIGHT/BMI reviewed. GEN: Healthy appearing, well-developed, NAD. -Head: NC/AT; -Mouth and throat: MMM. Normal gums, muc yamile, palate,. Good dentition. NECK: Supple, with no masses. CV: RRR, no m/r/g. LUNGS: CTAB, no w/r/c. ABD: Soft, NT/ND, NBS, no masses or organomegaly. SKIN: + for erythema; no ozing. non-tender to palpation; no crepitus MSK: No deformities, Normal gait. NEURO: AAox3 Results & Data Results & Data Vital Signs (Past 12 Hours) Vital Signs Temp Pulse Pulse Resp BP Pulse Ox O2 Del Method 01/22/25 08:28 36.3 C L 82 18 122/70 94 Room Air 01/22/25 02:43 36.6 C 82 18 112/66 94 Nasal Cannula 01/21/25 22:42 36.7 C 70 18 128/70 95 Nasal Cannula 01/21/25 22:00 Nasal Cannula 01/21/25 21:52 72 O2 Flow Rate 01/22/25 08:28 01/22/25 02:43 2 01/21/25 22:42 2 01/21/25 22:00 2 01/21/25 21:52 Laboratory Results Abnormal Lab Results 01/21/25 01/21/25 01/21/25 11:30 16:15 20:28 WBC RBC Hgb Hct MCV MCH MCHC RDW Std Deviation RDW Coeff of Jocelyn Plt Count MPV Immature Gran % (Auto) Neut % (Auto) Lymph % (Auto) [place] % (Auto) Eos % (Auto) Baso % (Auto) Neut # (Auto) Lymph # (Auto) [place] # (Auto) Eos # (Auto) Baso # (Auto) Immature Gran # (Auto) Sodium Potassium Chloride Carbon Dioxide Anion Gap BUN Creatinine Est Cr Clr Drug Dosing eGFR BUN/Creatinine Ratio Glucose POC Glucose 100 H 116 H 114 H Calcium Phosphorus Magnesium Total Bilirubin AST ALT Alkaline Phosphatase Total Protein Albumin Globulin Albumin/Globulin Ratio 01/22/25 01/22/25 07:04 07:26 WBC 8.85 RBC 4.35 L Hgb 12.2 L Hct 38.8 L MCV 89.2 MCH 28.0 MCHC 31.4 L RDW Std Deviation 45.5 RDW Coeff of Jocelyn 14.0 Plt Count 232 MPV 9.0 L Immature Gran % (Auto) 0.5 Neut % (Auto) 65.2 Lymph % (Auto) 18.2 [place] % (Auto) 9.7 Eos % (Auto) 6.1 Baso % (Auto) 0.3 Neut # (Auto) 5.77 Lymph # (Auto) 1.61 [place] # (Auto) 0.86 H Eos # (Auto) 0.54 H Baso # (Auto) 0.03 Immature Gran # (Auto) 0.04 Sodium 140 Potassium 3.8 Chloride 106 Carbon Dioxide 27 Anion Gap 7 BUN 12 Creatinine 1.02 Est Cr Clr Drug Dosing 86.1 eGFR 76.17 BUN/Creatinine Ratio 11.8 Glucose 97 POC Glucose 110 H Calcium 8.4 L Phosphorus 2.7 Magnesium 1.8 Total Bilirubin 0.6 AST 11 L ALT 6 L Alkaline Phosphatase 62 Total Protein 6.1 Albumin 3.0 L Globulin 3.1 Albumin/Globulin Ratio 1.0 PG Care Time/CCT Total # of Minutes Spent Total Time Spent with Patient: Total time spent is greater than 50% in coordination of care (as documented) at patient's floor/unit and/or counseling patient: Coding Level of Care Code 85782 SUB INP/OBS CARE 2/35MIN Diagnoses Lower extremity cellulitis L03.119 Acute UTI N39.0 Chronic venous insufficiency I87.2 DMII (diabetes mellitus, type 2) E11.9 Time Spent (min) 35
[2025-01-22] MEDS: FUROSEMIDE INJ 20 MG/2 ML VIAL IV SCH (09:53)
[2025-01-22] MEDS: DOXYCYCLINE HYCLATE 100 MG CAP PO SCH (12:03)
[2025-01-23 06:48] LABS: Hematocrit (blood only) 38.3 % (42.0-52.0); Hemoglobin 12.2 g/dl (14.0-18.0); Mean Corpuscular Hemoglobin 28.7 pg (25.0-34.0); Mean Corpuscular Volume 90.1 fL (80.0-100.0); Platelet Count 245 K/uL (130-400); RDW Standard Deviation 46.1 fL (36.4-46.3); Red Blood Count 4.25 M/uL (4.70-6.10); White Blood Count 9.44 K/ul (4.8-10.8)
[2025-01-23 07:10] LABS: Alanine Aminotransferase 8.0 U/L (7-52); Albumin Globulin Ratio 0.9 (0.9-2); Alkaline Phosphatase 62.0 U/L (34-104); Anion Gap 8.0 (3-11); Bilirubin,Total 0.4 mg/dl (0.2-1.0); Blood Urea Nitrogen 14.0 mg/dl (6-23); Calcium 8.4 mg/dl (8.6-10.3); Carbon Dioxide 27.0 mmol/L (21-32); Chloride 105.0 mmol/L (98-107); Creatinine Clr Calc Pharmacy 82.8 ml/min; Globulin 3.3 gm/dl (2.5-4.0); Glucose 88.0 mg/dl (70-99(Fasting)); Potassium 3.6 mmol/L (3.5-5.1); Sodium 140.0 mmol/L (136-145); Total Protein 6.4 gm/dl (6.0-8.3)
--- NOTE | 2025-01-23 09:38 | Hospitalist Progress Note ---
Date of Service January 23, 2025 Assessment & Plan (1) Lower extremity cellulitis: (2) Acute UTI: (3) Chronic venous insufficiency: (4) DMII (diabetes mellitus, type 2): Plan The patient is a 75-year-old male with PMH including BPH with LUTS, chronic venous insufficiency, leg edema, type 2 diabetes, failure to thrive, COPD, impaired gait and mobility,, depression, asthma, and GERD. He presents to the ER with a few days of worsening lower extremity, cellulitis, venous insuffici ency. and greenish drainage. He undergoes unknown treatment by a family member at home. He reports that he comes into the ED because there is a new greenish drainage from the right lower extremity. DVT studies negative and cefepime 2 g IV. WBC elevated at 16.40. Urinalysis is suggestive of a urinary tract infection. acute b/l cellulitis with green drainage venous insufficiency, lymphedema acute UTI type 2 diabetes failure to thrive. asthma GERD acute b/l leg celluitis, venous insufficiency Bilateral lower extremity cellulitis secondary to chronic venous insufficiency right worse than left MRSA negative added linezolid switching to cefazolin q8 hours. added lasix (was on cefepime) doxycycline, wound care evaluate him on 01/21 duplex negative for DVT Patient looks like he would probably benefit from Unna boots bilaterally Reportedly is getting some form of wound care from grand-daughter at home deposition cannot be discharge today, given ongoing cellulitis he's does not want fpc placement Acute urinary tract infection/BPH with LUTS- Follow urine culture and sensitivity he was on cefepime (stop on 01/22 morning) Nonsustained V. tach- Patient had a 9 beat run of NSVT while in the ED Potassium 4.1 and magnesium 1.9 f/u on echo, continue telemetry Initial troponin normal at 7.7 Continue diltiazem Repeat in a.m. Diabetes mellitus-Hold metformin Placed Accu-Cheks with NovoLog SSI his glucose been less than 180 Hypoxia/asthma/COPD/presumptive obesity hypoventilation syndrome- trial of cpap tonight O2 saturation was at its lowest 87% on room air On 2 L of oxygen, he is maintained in 95-96 range Upon questioning, patient reports that he does have an oxygen unit at home, however, he does not use it because it does not think it makes a difference for him. He likely should resume it. Asked him to bring his unit in so it can be determined if it still functional Incentive spirometry Likely has obesity hypoventilation syndrome Trelegy Ellipta, and albuterol sulfate as needed Ambulatory dysfunction- Due to his body habitus, patient physical activity is restricted to transferring from bed to chair and back again DVT prophylaxis -lovenox 70mg q12 hours Hyperlipidemia-Continue simvastatin Admission and Anticipated Discharge Date Admission Date: January 19, 2025 Subjective he was switched to cefazolin yesterday but cellulitis and erythema still significant check nasal MRSA, added linezolid lasix for lymphadema no discharge today no chest pain, no shortness of breath Review of Systems Review of Systems: Constitutional: No Weight Change, No Fever, No Chills, No Night Sweats, No Fatigue, No Malaise Cardiovascular: No Chest Pain, No SOB, No PND, No Dyspnea on Exertion, No Orthopnea, No Claudication, No Edema, No Palpitations Respiratory: No Cough, No Sputum, No Wheezing, No Smoke Exposure, No Dyspnea Gastrointestinal: No Nausea, No Vomiting, No Diarrhea, No Constipation, No Pain, No Heartburn, No Anorexia, No Dysphagia, No Hematochezia, No Melena, No Flatulence, No Jaundice Musculoskeletal: no worsening leg pain Skin: + for erythema Neuro: No Weakness, No Numbness, No Paresthesias, No Loss of Consciousness, No Syncope, No Dizziness, No Headache, No Coordination Changes, No Recent Falls Physical Exam Constitutional: VITALS: Reviewed. WEIGHT/BMI reviewed. GEN: non-toxic appearing; AAox3 -Head: NC/AT; -Mouth and throat: MMM. Normal gums, muc yamile, palate,. Good dentition. NECK: Supple, with no masses. CV: RRR, no m/r/g. LUNGS: CTAB, no w/r/c. ABD: Soft, NT/ND, NBS, no masses or organomegaly. : N/A . MSK: + for erythema in both legs; no discharge; EXT: No clubbing, cyanosis, or edema. NEURO: AAox3 Results & Data Results & Data Vital Signs (Past 12 Hours) Vital Signs Temp Pulse Pulse Resp BP Pulse Ox O2 Del Method 01/23/25 08:09 36.2 C L 72 20 112/66 93 Room Air 01/23/25 02:30 36.4 C L 61 18 116/61 96 Nasal Cannula 01/22/25 23:00 62 01/22/25 22:42 36.7 C 65 18 114/68 93 Room Air O2 Flow Rate 01/23/25 08:09 01/23/25 02:30 2 01/22/25 23:00 01/22/25 22:42 Laboratory Results Laboratory Results - last 72 hr 01/20/25 01/20/25 01/20/25 09:06 11:38 16:32 WBC 10.42 RBC 4.42 L Hgb 12.5 L Hct 39.6 L MCV 89.6 MCH 28.3 MCHC 31.6 L RDW Std Deviation 46.6 H RDW Coeff of Jocelyn 14.2 Plt Count 218 MPV 9.1 L Immature Gran % (Auto) 0.3 Neut % (Auto) 70.1 Lymph % (Auto) 17.3 [place] % (Auto) 9.0 Eos % (Auto) 3.0 Baso % (Auto) 0.3 Neut # (Auto) 7.31 H Lymph # (Auto) 1.80 [place] # (Auto) 0.94 H Eos # (Auto) 0.31 Baso # (Auto) 0.03 Immature Gran # (Auto) 0.03 Sodium 138 Potassium 4.0 Chloride 104 Carbon Dioxide 30 Anion Gap 4 BUN 12 Creatinine 0.93 Est Cr Clr Drug Dosing 94.4 eGFR 85.10 BUN/Creatinine Ratio 12.9 Glucose 103 H POC Glucose 86 101 H Estimat Average Glucose 111 Hemoglobin A1c 5.5 Calcium 8.5 L Phosphorus 3.2 Magnesium 1.7 Total Bilirubin AST ALT Alkaline Phosphatase Total Protein Albumin 3.1 L Globulin Albumin/Globulin Ratio 01/20/25 01/21/25 01/21/25 20:22 05:38 07:26 WBC 10.12 RBC 4.17 L Hgb 12.2 L Hct 36.9 L MCV 88.5 MCH 29.3 MCHC 33.1 RDW Std Deviation 45.1 RDW Coeff of Jocelyn 14.0 Plt Count 231 MPV 9.7 Immature Gran % (Auto) 0.3 Neut % (Auto) 65.8 Lymph % (Auto) 19.8 [place] % (Auto) 8.2 Eos % (Auto) 5.4 Baso % (Auto) 0.5 Neut # (Auto) 6.66 H Lymph # (Auto) 2.00 [place] # (Auto) 0.83 H Eos # (Auto) 0.55 H Baso # (Auto) 0.05 Immature Gran # (Auto) 0.03 Sodium 139 Potassium 4.0 Chloride 106 Carbon Dioxide 28 Anion Gap 5 BUN 14 Creatinine 0.98 Est Cr Clr Drug Dosing 89.7 eGFR 79.92 BUN/Creatinine Ratio 14.3 Glucose 121 H POC Glucose 123 H 117 H Estimat Average Glucose Hemoglobin A1c Calcium 8.3 L Phosphorus 2.9 Magnesium 1.8 Total Bilirubin AST ALT Alkaline Phosphatase Total Protein Albumin 2.9 L Globulin Albumin/Globulin Ratio 01/21/25 01/21/25 01/21/25 11:30 16:15 20:28 WBC RBC Hgb Hct MCV MCH MCHC RDW Std Deviation RDW Coeff of Jocelyn Plt Count MPV Immature Gran % (Auto) Neut % (Auto) Lymph % (Auto) [place] % (Auto) Eos % (Auto) Baso % (Auto) Neut # (Auto) Lymph # (Auto) [place] # (Auto) Eos # (Auto) Baso # (Auto) Immature Gran # (Auto) Sodium Potassium Chloride Carbon Dioxide Anion Gap BUN Creatinine Est Cr Clr Drug Dosing eGFR BUN/Creatinine Ratio Glucose POC Glucose 100 H 116 H 114 H Estimat Average Glucose Hemoglobin A1c Calcium Phosphorus Magnesium Total Bilirubin AST ALT Alkaline Phosphatase Total Protein Albumin Globulin Albumin/Globulin Ratio 01/22/25 01/22/25 01/22/25 07:04 07:26 11:28 WBC 8.85 RBC 4.35 L Hgb 12.2 L Hct 38.8 L MCV 89.2 MCH 28.0 MCHC 31.4 L RDW Std Deviation 45.5 RDW Coeff of Jocelyn 14.0 Plt Count 232 MPV 9.0 L Immature Gran % (Auto) 0.5 Neut % (Auto) 65.2 Lymph % (Auto) 18.2 [place] % (Auto) 9.7 Eos % (Auto) 6.1 Baso % (Auto) 0.3 Neut # (Auto) 5.77 Lymph # (Auto) 1.61 [place] # (Auto) 0.86 H Eos # (Auto) 0.54 H Baso # (Auto) 0.03 Immature Gran # (Auto) 0.04 Sodium 140 Potassium 3.8 Chloride 106 Carbon Dioxide 27 Anion Gap 7 BUN 12 Creatinine 1.02 Est Cr Clr Drug Dosing 86.1 eGFR 76.17 BUN/Creatinine Ratio 11.8 Glucose 97 POC Glucose 110 H 101 H Estimat Average Glucose Hemoglobin A1c Calcium 8.4 L Phosphorus 2.7 Magnesium 1.8 Total Bilirubin 0.6 AST 11 L ALT 6 L Alkaline Phosphatase 62 Total Protein 6.1 Albumin 3.0 L Globulin 3.1 Albumin/Globulin Ratio 1.0 01/22/25 01/22/25 01/23/25 16:22 20:11 06:02 WBC 9.44 RBC 4.25 L Hgb 12.2 L Hct 38.3 L MCV 90.1 MCH 28.7 MCHC 31.9 L RDW Std Deviation 46.1 RDW Coeff of Jocelyn 14.1 Plt Count 245 MPV 9.0 L Immature Gran % (Auto) Neut % (Auto) Lymph % (Auto) [place] % (Auto) Eos % (Auto) Baso % (Auto) Neut # (Auto) Lymph # (Auto) [place] # (Auto) Eos # (Auto) Baso # (Auto) Immature Gran # (Auto) Sodium 140 Potassium 3.6 Chloride 105 Carbon Dioxide 27 Anion Gap 8 BUN 14 Creatinine 1.06 Est Cr Clr Drug Dosing 82.8 eGFR 72.73 BUN/Creatinine Ratio 13.2 Glucose 88 POC Glucose 99 118 H Estimat Average Glucose Hemoglobin A1c Calcium 8.4 L Phosphorus Magnesium Total Bilirubin 0.4 AST 12 L ALT 8 Alkaline Phosphatase 62 Total Protein 6.4 Albumin 3.1 L Globulin 3.3 Albumin/Globulin Ratio 0.9 01/23/25 07:27 WBC RBC Hgb Hct MCV MCH MCHC RDW Std Deviation RDW Coeff of Jocelyn Plt Count MPV Immature Gran % (Auto) Neut % (Auto) Lymph % (Auto) [place] % (Auto) Eos % (Auto) Baso % (Auto) Neut # (Auto) Lymph # (Auto) [place] # (Auto) Eos # (Auto) Baso # (Auto) Immature Gran # (Auto) Sodium Potassium Chloride Carbon Dioxide Anion Gap BUN Creatinine Est Cr Clr Drug Dosing eGFR BUN/Creatinine Ratio Glucose POC Glucose 91 Estimat Average Glucose Hemoglobin A1c Calcium Phosphorus Magnesium Total Bilirubin AST ALT Alkaline Phosphatase Total Protein Albumin Globulin Albumin/Globulin Ratio PG Care Time/CCT Total # of Minutes Spent Total Time Spent with Patient: Total time spent is greater than 50% in coordination of care (as documented) at patient's floor/unit and/or counseling patient: Coding Level of Care Code 96356 SUB INP/OBS CARE 235MIN Diagnoses Lower extremity cellulitis L03.119 Acute UTI N39.0 Chronic venous insufficiency I87.2 DMII (diabetes mellitus, type 2) E11.9 Time Spent (min) 35
[2025-01-23] MEDS: LINEZOLID 600 MG/300 ML BAG IV SCH (09:50)
[2025-01-24 06:02] LABS: Hematocrit (blood only) 38.4 % (42.0-52.0); Hemoglobin 12.9 g/dl (14.0-18.0); Mean Corpuscular Hemoglobin 29.9 pg (25.0-34.0); Mean Corpuscular Volume 88.9 fL (80.0-100.0); Platelet Count 232 K/uL (130-400); RDW Standard Deviation 45.1 fL (36.4-46.3); Red Blood Count 4.32 M/uL (4.70-6.10); White Blood Count 9.52 K/ul (4.8-10.8)
[2025-01-24 06:20] LABS: Alanine Aminotransferase 6.0 U/L (7-52); Albumin Globulin Ratio 1.0 (0.9-2); Alkaline Phosphatase 63.0 U/L (34-104); Anion Gap 8.0 (3-11); Bilirubin,Total 0.4 mg/dl (0.2-1.0); Blood Urea Nitrogen 14.0 mg/dl (6-23); Calcium 8.5 mg/dl (8.6-10.3); Carbon Dioxide 27.0 mmol/L (21-32); Chloride 105.0 mmol/L (98-107); Creatinine Clr Calc Pharmacy 92.4 ml/min; Globulin 3.0 gm/dl (2.5-4.0); Glucose 99.0 mg/dl (70-99(Fasting)); Potassium 3.6 mmol/L (3.5-5.1); Sodium 140.0 mmol/L (136-145); Total Protein 6.1 gm/dl (6.0-8.3)
--- NOTE | 2025-01-24 09:15 | Hospitalist Progress Note ---
Date of Service January 24, 2025 Assessment & Plan (1) Lower extremity cellulitis: (2) Acute UTI: (3) Chronic venous insufficiency: (4) DMII (diabetes mellitus, type 2): Plan The patient is a 75-year-old male with PMH including BPH with LUTS, chronic venous insufficiency, leg edema, type 2 diabetes, failure to thrive, COPD, impaired gait and mobility,, depression, asthma, and GERD. He presents to the ER with a few days of worsening lower extremity, cellulitis, venous insuffici ency. and greenish drainage. He undergoes unknown treatment by a family member at home. He reports that he comes into the ED because there is a new greenish drainage from the right lower extremity. DVT studies negative and cefepime 2 g IV. WBC elevated at 16.40. Urinalysis is suggestive of a urinary tract infection. acute b/l cellulitis with green drainage venous insufficiency, lymphedema acute UTI type 2 diabetes failure to thrive. asthma GERD overall plan today limited improvement with cefazolin and linezolid CTA to r/o PVD increased dose of lasix ID evaluation acute b/l leg cellulitis, venous insufficiency Bilateral lower extremity cellulitis secondary to chronic venous insufficiency right worse than left MRSA negative added linezolid switching to cefazolin q8 hours. added lasix (was on cefepime) doxycycline, f/u on CTA leg to r/o PVD ID evaluation wound care evaluate him on 01/21 He need home services for wound care and dressing change he need a medical cab for transport and need wound care follow up duplex negative for DVT Patient looks like he would probably benefit from Unna boots bilaterally Reportedly is getting some form of wound care from grand-daughter at home deposition more than 24 hours away Acute urinary tract infection/BPH with LUTS- Follow urine culture and sensitivity he was on cefepime (stop on 01/22 morning) Nonsustained V. tach- Patient had a 9 beat run of NSVT while in the ED Potassium 4.1 and magnesium 1.9 f/u on echo, continue telemetry Initial troponin normal at 7.7 Continue diltiazem Repeat in a.m. Diabetes mellitus-Hold metformin Placed Accu-Cheks with NovoLog SSI his glucose been less than 180 Hypoxia/asthma/COPD/presumptive obesity hypoventilation syndrome- trial of cpap tonight O2 saturation was at its lowest 87% on room air On 2 L of oxygen, he is maintained in 95-96 range Upon questioning, patient reports that he does have an oxygen unit at home, however, he does not use it because it does not think it makes a difference for him. He likely should resume it. Asked him to bring his unit in so it can be determined if it still functional Incentive spirometry Likely has obesity hypoventilation syndrome Trelegy Ellipta, and albuterol sulfate as needed Ambulatory dysfunction- Due to his body habitus, patient physical activity is restricted to transferring from bed to chair and back again DVT prophylaxis -lovenox 70mg q12 hours Hyperlipidemia-Continue simvastatin Admission and Anticipated Discharge Date Admission Date: January 19, 2025 Subjective he still have limited improvement of cellultiis despite cefazolin and linezold plan to has CTA with runoff today to r/o PVD c/w lasix he's was a heavy smoking, 2-3 ppd, quitted in 1996 ID consulted. Review of Systems Review of Systems: Constitutional: No Weight Change, No Fever, No Chills, Cardiovascular: No Chest Pain, No SOB, No PND, No Dyspnea on Exertion, No Orthopnea, No Claudication, No Palpitations + for edema Respiratory: No Cough, No Sputum, No Wheezing, No Smoke Exposure, No Dyspnea Gastrointestinal: No Nausea, No Vomiting, No Diarrhea, No Constipation, No Pain, No Heartburn, No Anorexia, No Dysphagia, No Hematochezia, No Melena, No Flatulence, No Jaundice Musculoskeletal: + for cellulitis, lymphadema Skin: + for skin lesion; negative for discharge Neuro: No Weakness, No Numbness, No Paresthesias, No Loss of Consciousness, No Syncope, No Dizziness, No Headache, No Coordination Changes, No Recent Falls Heme/Lymph: No Bruising, No Bleeding, No Transfusions History, No Lymphadenopathy Endocrine: No Polyuria, No Polydipsia, No Temperature Intolerance Physical Exam Physical Exam: VITALS: Reviewed. WEIGHT/BMI reviewed. GEN: non toxic appearing . -Head: NC/AT; NECK: Supple, with no masses. CV: RRR, no m/r/g. LUNGS: CTAB, no w/r/c. ABD: Soft, NT/ND, NBS, no masses or organomegaly. : N/A SKIN: + for erythema, on both leg; non-tender to palpitation. MSK: + for edema EXT: No clubbing, cyanosis, or edema. NEURO: AAox3 Results & Data Results & Data Vital Signs (Past 12 Hours) Vital Signs Temp Pulse Pulse Resp BP Pulse Ox O2 Del Method 01/24/25 08:51 36.4 C L 74 19 116/65 96 Room Air 01/24/25 02:50 36.5 C 68 18 124/72 90 Room Air 01/23/25 23:00 64 01/23/25 21:49 36.4 C L 63 18 108/64 92 Room Air Laboratory Results Laboratory Results - last 72 hr 01/21/25 01/21/25 01/21/25 11:30 16:15 20:28 WBC RBC Hgb Hct MCV MCH MCHC RDW Std Deviation RDW Coeff of Jocelyn Plt Count MPV Immature Gran % (Auto) Neut % (Auto) Lymph % (Auto) [place] % (Auto) Eos % (Auto) Baso % (Auto) Neut # (Auto) Lymph # (Auto) [place] # (Auto) Eos # (Auto) Baso # (Auto) Immature Gran # (Auto) Sodium Potassium Chloride Carbon Dioxide Anion Gap BUN Creatinine Est Cr Clr Drug Dosing eGFR BUN/Creatinine Ratio Glucose POC Glucose 100 H 116 H 114 H Calcium Phosphorus Magnesium Total Bilirubin AST ALT Alkaline Phosphatase Total Protein Albumin Globulin Albumin/Globulin Ratio Nasal Screen MRSA (PCR) 01/22/25 01/22/25 01/22/25 07:04 07:26 11:28 WBC 8.85 RBC 4.35 L Hgb 12.2 L Hct 38.8 L MCV 89.2 MCH 28.0 MCHC 31.4 L RDW Std Deviation 45.5 RDW Coeff of Jocelyn 14.0 Plt Count 232 MPV 9.0 L Immature Gran % (Auto) 0.5 Neut % (Auto) 65.2 Lymph % (Auto) 18.2 [place] % (Auto) 9.7 Eos % (Auto) 6.1 Baso % (Auto) 0.3 Neut # (Auto) 5.77 Lymph # (Auto) 1.61 [place] # (Auto) 0.86 H Eos # (Auto) 0.54 H Baso # (Auto) 0.03 Immature Gran # (Auto) 0.04 Sodium 140 Potassium 3.8 Chloride 106 Carbon Dioxide 27 Anion Gap 7 BUN 12 Creatinine 1.02 Est Cr Clr Drug Dosing 86.1 eGFR 76.17 BUN/Creatinine Ratio 11.8 Glucose 97 POC Glucose 110 H 101 H Calcium 8.4 L Phosphorus 2.7 Magnesium 1.8 Total Bilirubin 0.6 AST 11 L ALT 6 L Alkaline Phosphatase 62 Total Protein 6.1 Albumin 3.0 L Globulin 3.1 Albumin/Globulin Ratio 1.0 Nasal Screen MRSA (PCR) 01/22/25 01/22/25 01/23/25 16:22 20:11 06:02 WBC 9.44 RBC 4.25 L Hgb 12.2 L Hct 38.3 L MCV 90.1 MCH 28.7 MCHC 31.9 L RDW Std Deviation 46.1 RDW Coeff of Jocelyn 14.1 Plt Count 245 MPV 9.0 L Immature Gran % (Auto) Neut % (Auto) Lymph % (Auto) [place] % (Auto) Eos % (Auto) Baso % (Auto) Neut # (Auto) Lymph # (Auto) [place] # (Auto) Eos # (Auto) Baso # (Auto) Immature Gran # (Auto) Sodium 140 Potassium 3.6 Chloride 105 Carbon Dioxide 27 Anion Gap 8 BUN 14 Creatinine 1.06 Est Cr Clr Drug Dosing 82.8 eGFR 72.73 BUN/Creatinine Ratio 13.2 Glucose 88 POC Glucose 99 118 H Calcium 8.4 L Phosphorus Magnesium Total Bilirubin 0.4 AST 12 L ALT 8 Alkaline Phosphatase 62 Total Protein 6.4 Albumin 3.1 L Globulin 3.3 Albumin/Globulin Ratio 0.9 Nasal Screen MRSA (PCR) 01/23/25 01/23/25 01/23/25 07:27 09:25 11:24 WBC RBC Hgb Hct MCV MCH MCHC RDW Std Deviation RDW Coeff of Jocelyn Plt Count MPV Immature Gran % (Auto) Neut % (Auto) Lymph % (Auto) [place] % (Auto) Eos % (Auto) Baso % (Auto) Neut # (Auto) Lymph # (Auto) [place] # (Auto) Eos # (Auto) Baso # (Auto) Immature Gran # (Auto) Sodium Potassium Chloride Carbon Dioxide Anion Gap BUN Creatinine Est Cr Clr Drug Dosing eGFR BUN/Creatinine Ratio Glucose POC Glucose 91 135 H Calcium Phosphorus Magnesium Total Bilirubin AST ALT Alkaline Phosphatase Total Protein Albumin Globulin Albumin/Globulin Ratio Nasal Screen MRSA (PCR) Negative 01/23/25 01/23/25 01/24/25 16:22 19:58 05:34 WBC 9.52 RBC 4.32 L Hgb 12.9 L Hct 38.4 L MCV 88.9 MCH 29.9 MCHC 33.6 RDW Std Deviation 45.1 RDW Coeff of Jocelyn 14.0 Plt Count 232 MPV 9.0 L Immature Gran % (Auto) Neut % (Auto) Lymph % (Auto) [place] % (Auto) Eos % (Auto) Baso % (Auto) Neut # (Auto) Lymph # (Auto) [place] # (Auto) Eos # (Auto) Baso # (Auto) Immature Gran # (Auto) Sodium 140 Potassium 3.6 Chloride 105 Carbon Dioxide 27 Anion Gap 8 BUN 14 Creatinine 0.95 Est Cr Clr Drug Dosing 92.4 eGFR 82.95 BUN/Creatinine Ratio 14.7 Glucose 99 POC Glucose 97 121 H Calcium 8.5 L Phosphorus Magnesium Total Bilirubin 0.4 AST 16 ALT 6 L Alkaline Phosphatase 63 Total Protein 6.1 Albumin 3.1 L Globulin 3.0 Albumin/Globulin Ratio 1.0 Nasal Screen MRSA (PCR) 01/24/25 07:28 WBC RBC Hgb Hct MCV MCH MCHC RDW Std Deviation RDW Coeff of Jocelyn Plt Count MPV Immature Gran % (Auto) Neut % (Auto) Lymph % (Auto) [place] % (Auto) Eos % (Auto) Baso % (Auto) Neut # (Auto) Lymph # (Auto) [place] # (Auto) Eos # (Auto) Baso # (Auto) Immature Gran # (Auto) Sodium Potassium Chloride Carbon Dioxide Anion Gap BUN Creatinine Est Cr Clr Drug Dosing eGFR BUN/Creatinine Ratio Glucose POC Glucose 104 H Calcium Phosphorus Magnesium Total Bilirubin AST ALT Alkaline Phosphatase Total Protein Albumin Globulin Albumin/Globulin Ratio Nasal Screen MRSA (PCR) Medications Administered Current Inpatient Medications Acetaminophen (Acetaminophen 325 Mg Tab) 650 mg PO Q4H PRN PRN Reason: Pain or Fever Stop: 02/18/25 21:32 Albuterol (Albuterol Hfa 8 Gm Inhaler) 2 puffs INH 6XD PRN PRN Reason: shortness of breath or wheezin Stop: 02/18/25 21:32 Ascorbic Acid (Ascorbic Acid 500 Mg Tab) 500 mg PO QAM BRANDON Stop: 02/20/25 08:59 Last Admin: 01/24/25 09:07 Dose: 500 mg Dextrose (Dextrose 50% 50 Ml Syringe) 25 - 50 ml IV UD PRN; Protocol PRN Reason: Hypoglycemia Protocol Stop: 02/18/25 21:32 Diltiazem HCl (Diltiazem Hcl 300 Mg Capcr) 300 mg PO QAM BRANDON Stop: 02/19/25 08:59 Last Admin: 01/24/25 09:07 Dose: 300 mg Diphenhydramine HCl (Diphenhydramine Capsule 25 Mg Cap) 25 mg PO HS PRN PRN Reason: Sleep Doxycycline Hyclate (Doxycycline Hyclate 100 Mg Cap) 100 mg PO BID BRANDON Stop: 01/29/25 09:59 Last Admin: 01/24/25 09:07 Dose: 100 mg Enoxaparin Sodium (Enoxaparin 80 Mg/0.8 Ml Syr) 70 mg SQ Q12H BRANDON Stop: 02/20/25 18:59 Last Admin: 01/24/25 06:12 Dose: 70 mg Fluticasone Furoate (Fluticasone Furoate 100mcg 14 Puffs/Inhaler) 1 puffs INH DAILY BRANDON Stop: 02/19/25 08:59 Last Admin: 01/24/25 09:07 Dose: 1 puffs Glucagon (Glucagon For Inj 1 Mg Vial) 1 mg SQ UD PRN; Protocol PRN Reason: Hypoglycemia Protocol Stop: 02/18/25 21:32 Glucose (Glucose 40% Gel 15 Gm Tube) 15 - 30 gm PO UD PRN; Protocol PRN Reason: Hypoglycemia Protocol Stop: 02/18/25 21:32 Glucose (Glucose 10 Tab/Tube) 4 - 8 tab PO UD PRN; Protocol PRN Reason: Hypoglycemia Protocol Stop: 02/18/25 21:32 Hydroxyzine HCl (Hydroxyzine Hcl 25 Mg Tab) 25 mg PO BID PRN PRN Reason: itching Stop: 02/18/25 21:32 Thiamine HCl 200 mg/ Sodium (Chloride) 52 mls @ 210 mls/hr IV QAM BRANDON Stop: 02/19/25 08:59 Last Admin: 01/24/25 09:07 Dose: 210 mls/hr Cefazolin Sodium (Ancef 2000mg) 2,000 mg in 15 mls @ 3.75 mls/min IV Q8H BRANDON Stop: 01/29/25 13:59 Last Admin: 01/24/25 06:11 Dose: 3.75 mls/min Linezolid (Zyvox) 600 mg in 300 mls @ 300 mls/hr IV Q12H BRANDON Stop: 01/30/25 09:59 Last Infusion: 01/23/25 22:18 Dose: Infused Insulin Aspart (Insulin Aspart Per Unit Charge) 0 units SC ACHS BRANDON Stop: 02/18/25 21:32 Last Admin: 01/24/25 09:01 Dose: Not Given Miscellaneous (Carbohydrates For Hypoglycemia ) 15 - 30 gm PO UD PRN PRN Reason: Hypoglycemia Protocol Stop: 02/18/25 21:32 Ondansetron HCl (Ondansetron Inj 2 Mg/Ml 2 Ml Vial) 4 mg IV Q6H PRN PRN Reason: NAUSEA/VOMITING Stop: 02/18/25 21:32 Simvastatin (Simvastatin 20 Mg Tab) 20 mg PO QPM BRANDON Stop: 02/18/25 21:32 Last Admin: 01/23/25 20:04 Dose: 20 mg Umeclidinium/Vilanterol (Umeclidinium/Vilanterol 62.5/25mcg 7 Puffs/Inhaler) 1 puffs INH DAILY BRANDON Stop: 02/19/25 08:59 Last Admin: 01/24/25 09:07 Dose: 1 puffs Zinc Sulfate (Zinc Sulfate 220 Mg Capsule) 220 mg PO QAM BRANDON Stop: 02/20/25 08:59 Last Admin: 01/24/25 09:07 Dose: 220 mg PG Care Time/CCT Total # of Minutes Spent Total Time Spent with Patient: Total time spent is greater than 50% in coordination of care (as documented) at patient's floor/unit and/or counseling patient: Coding Level of Care Code 94285 SUB INP/OBS CARE 2/35MIN Diagnoses Lower extremity cellulitis L03.119 Acute UTI N39.0 Chronic venous insufficiency I87.2 DMII (diabetes mellitus, type 2) E11.9 Time Spent (min) 35
[2025-01-24] MEDS: OPTIRAY 320 125ml IV ONE (09:42)
--- NOTE | 2025-01-24 11:00 | CT Scan Report ---
Clinical history: Rule out peripheral vascular disease Technique: Axial computed tomography images were obtained of the abdomen, pelvis, lower extremities after the administration of intravenous contrast according to the CT angiogram protocol No prior examination is available for comparison Findings: The abdominal aorta appears unremarkable with no sign of aneurysm or dissection. No stenosis is seen involving it. The celiac axis appears normal. There is mild plaque in the proximal superior mesenteric artery, without stenosis. The inferior mesenteric artery is patent as well. There are 2 right renal arteries and there is a single left renal artery. There is mild renal artery atherosclerotic plaque without significant stenosis The multifocal calcified plaque in the right common iliac arteries without significant stenosis. There is a mild stenosis of the proximal right external iliac artery. There is calcified plaque in the right common femoral artery without significant stenosis. The right profunda femoral artery is patent. There are multiple mild stenoses of the proximal and distal aspects of the right superficial femoral artery. No significant stenosis is seen of the right popliteal artery. There are several mild stenoses of the proximal right anterior tibial artery. The dorsalis pedis artery is patent. There is a moderate severity stenosis of the right tibioperoneal trunk. There are multiple mild to moderate severity stenoses of the right posterior tibial artery and the proximal right peroneal artery. The right peroneal artery is occluded distally. The left common iliac, external iliac, and internal iliac arteries demonstrate multifocal calcified plaque without significant stenosis. No stenosis is seen of the left common femoral artery. The left profunda femoral artery is patent. There is a mild stenosis of the mid left superficial femoral artery and there are mild stenoses of the distal left superficial femoral artery and the mid left popliteal artery. There are mild stenoses of the left anterior tibial artery, the posterior tibial artery, and the tibial peroneal trunk. There is occlusion of the distal left peroneal artery The liver is overall of normal size, attenuation, and contour with no sign of cirrhosis or significant fatty infiltration. No liver mass lesion is seen. The portal vein is patent. The gallbladder appears unremarkable. No bile duct dilatation is noted. The spleen is of normal size. No focal splenic lesion is evident. The pancreas appears normal with no sign of acute or chronic pancreatitis and no mass lesion noted. The pancreatic duct is of normal caliber. The adrenal glands appear unremarkable. No definite renal or proximal ureteral calculi are seen on this contrast-enhanced study. There is no hydronephrosis or perinephric stranding. No renal mass lesion is identified. There is a 3 cm right renal cyst No adenopathy is seen. The stomach appears normal. There is no sign of small bowel obstruction. The colon appears unremarkable. There is no sign of appendicitis. No free intraperitoneal fluid or air is identified. There is a small umbilical hernia containing only fat No distal ureteral or bladder calculi are seen. No bladder mass lesion is evident. There is a small left pleural effusion. There is bilateral lower lobe atelectasis. There is coronary atherosclerosis There is subcutaneous edema of the medial thighs bilaterally and of the bilateral calf. There is diffuse fatty atrophy of the calf musculature No fracture is identified. No focal osseous lesion is seen. There is right worse then left hip osteoarthritis. There is bilateral knee osteoarthritis Impression: 1. Normal-appearing abdominal aorta 2. No sign of renal or mesenteric artery stenosis 3. Mild stenoses of the right external iliac artery, the right SFA, and the right RAMOS 4. Moderate severity stenoses of the right tibioperoneal trunk, and multiple mild to moderate severity stenoses of the right ASSISTANT LOAN PROCESSOR and proximal right peroneal artery 5. Occlusion of the distal right peroneal artery 6. No significant stenosis of the left iliac arteries or the left A R COLLECTIONS REP 7. Mild stenoses of the left SFA and left popliteal artery 8. Mild stenoses of the left RAMOS, ASSISTANT LOAN PROCESSOR, and tibioperoneal trunk 9. Occlusion of the distal left peroneal artery 10. Small left pleural effusion and bilateral lower lobe atelectasis 11. Right renal cyst ACT 112: Positive. There are findings on this exam that require communication between the performing entity and the patient following Patient Test Result Information Act ([place] ACT 112) guidelines. Electronically signed by Manuel Zamora 01-24-2025 11:00 AM
[2025-01-24] MEDS: SODIUM CHLORIDE 0.9% 1,000 ML IV SCH (12:09)
--- NOTE | 2025-01-24 13:13 | Vascular Medicine Consultation ---
Date of Consultation January 24, 2025 Assessment & Plan (1) Chronic venous insufficiency: I reviewed the CT scan and I do not see any significant disease in the iliac femoral or popliteal arteries. I think some of the findings in the tibial arteries may be more related to timing then to occlusive disease. The palpable pulses in his feet strongly argue against any significant underlying arterial disease as a component of his issues. These changes are all consistent with chronic longstanding venous insufficiency. His lower extremity venous duplex studies during this admission showed no evidence of deep venous thrombosis. I do not believe that there is any significant component of arterial insuf ficiency contributing here. One could check lower extremity noninvasive (ankle- brachial indices) but I think this is going to be a very low yield test and probably not necessary. Local wound care, elevation, and ultimately compression wraps would be the appropriate next Epson therapy. Please call if any additional questions or concerns arise. History of Present Illness Reason for Consultation: lower extremity edema Attending Physician: Danica Hayden DO History of Present Illness Asked to evaluate this 75-year-old gentleman with chronic venous insufficiency and cellulitis of both lower extremities. He tells me that he has had changes consistent with chronic venous insufficiency for several years. He relates to me a story of a recliner malfunction which he believes actually started all of this just a few years ago. In review of the chart, it looks like he has had issues with lower extremity edema for at least 5 years. Regardless, the physical findings in his lower extremities are consistent with longstanding venous insufficiency. A CT scan was obtained during this hospitalization that suggests some arterial occlusive disease in the right external iliac, superficial femoral, anterior tibial, tibioperoneal trunk, posterior tibial and peroneal arteries as well as the left superficial femoral, popliteal, anterior tibial, posterior tibial, tibioperoneal trunk, and peroneal arteries. Allergies Allergy/AdvReac Type Severity Reaction Status Date / Time sulfamethoxazole Allergy Mild itching Verified 01/29/24 16:11 [From Bactrim] trimethoprim [From Bactrim] Allergy Mild itching Verified 01/29/24 16:11 cheese Allergy Unknown SICK TO Verified 01/29/24 16:11 STOMACH Penicillins Allergy Unknown RASH Verified 01/29/24 16:11 Home Medications Medication Instructions Recorded Confirmed Type diphenhydramine HCl 25 mg tablet 25 mg PO HS PRN Sleep 05/23/23 01/19/25 History (Benadryl Allergy) furosemide 20 mg tablet 20 mg PO QAM #90 tabs 05/19/24 01/19/25 Rx metformin 500 mg tablet 500 mg PO BID #180 tabs 09/18/24 01/19/25 Rx simvastatin 20 mg tablet 20 mg PO QPM #90 tabs 09/18/24 01/19/25 Rx hydroxyzine HCl 25 mg tablet 25 mg PO BID PRN itching #60 tabs 09/21/24 01/19/25 Rx albuterol sulfate 90 mcg/actuation 2 inh inhalation 6XD PRN shortness 09/29/24 01/19/25 Rx aerosol inhaler of breath or wheezing #8.5 grams diltiazem HCl 300 mg 300 mg PO QAM #90 caps 10/30/24 01/19/25 Rx capsule,extended release 24 hr (Cardizem CD) fluticasone fur. 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 Arriola S/P partial colectomy H/O oral surgery H/O inguinal hernia repair Family History Other Adopted Family history unknown Denies family history of Ovarian cancer Prostate cancer Myocardial infarction Breast cancer Colorectal cancer Social History Smoking Status: Former smoker Tobacco Type: Cigarettes Age Started Using Tobacco: 15; Age Quit Using Tobacco: 47; packs per day: 2; Second Hand Exposure: No; Do You Dip or Chew Tobacco: No; Hx Alcohol Use: No Hx Substance Use: No Preferred Language: Italian Communication Ability: Effective Visual Impairment: No Limitations Hearing Ability: Normal Twill Cutter Required: No Beliefs That Will Affect Care: None marital status: Current Living Situation: Spouse current occupational status: retired 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 He has palpable dorsalis pedis pulses in both feet despite the swelling. Results & Data Vital Signs (Past 12 Hours) Vital Signs Temp Pulse Resp BP Pulse Ox O2 Del Method 01/24/25 11:40 36.2 C L 65 18 119/71 94 Room Air 01/24/25 08:51 36.4 C L 74 19 116/65 96 Room Air 01/24/25 02:50 36.5 C 68 18 124/72 90 Room Air PG Care Time/CCT Total # of Minutes Spent Total Time Spent with Patient: Total time spent is greater than 50% in coordination of care (as documented) at patient's floor/unit and/or counseling patient: Coding Level of Care Code 45081 INT INP/OBS CARE 2/55MIN Diagnoses Chronic venous insufficiency I87.2
[2025-01-25 02:37] VITALS: TEMP 97.7
[2025-01-25 06:23] LABS: Hematocrit (blood only) 37.3 % (42.0-52.0); Hemoglobin 11.7 g/dl (14.0-18.0); Mean Corpuscular Hemoglobin 28.2 pg (25.0-34.0); Mean Corpuscular Volume 89.9 fL (80.0-100.0); Platelet Count 227 K/uL (130-400); RDW Standard Deviation 46.4 fL (36.4-46.3); Red Blood Count 4.15 M/uL (4.70-6.10); White Blood Count 8.96 K/ul (4.8-10.8)
--- NOTE | 2025-01-25 10:19 | Infectious Disease Consult ---
Date of Consultation January 25, 2025 Assessment & Plan (1) Chronic venous insufficiency: (2) Leukocytosis: (3) Edema of both lower extremities due to peripheral venous insufficiency: Plan Problems: #Concern for lower extremity cellulitis #Chronic venous insufficiency #Bacteriuria: colonization vs UTI. S/p 3-4 days of cefepime Micro: 01/19 UCx: Providencia stuartii (S ceftriaxone) 01/19 BCx x2: NG Abx: Linezolid 01/23 - present Cefazolin 01/22 - present Doxycycline 01/22 - present Cefepime 01/19 - 01/22 75 yo M with BPH with LUTS, chronic venous insufficiency, FTT, bilateral lower extremity edema, COPD, DM2, HTN, HLD, asthma, GERD who presented on 01/19 with a few days of worsening bilateral lower extremity edema and erythema, greenish drainage from RLE. On presentation, pt was afebrile, VSS. Labs showed WBC 16.4, procal 0.05. UA with >50 WBCs. MRSA nares negative. Venous duplex US without DVT. Pt started on cefepime. Wound care consulted. Leukocytosis resolved quickly, decreased to 10.42 on 01/20. Cellulitis reportedly slightly improved by 01/22, so cefepime was switched to cefazolin. Doxycycline was added 01/22. Linezolid added 01/23 due to concerns for persistent cellulitis. CTA aorta with runoff 01/24 with concern for vascular disease, but vascular surgery not concerned for this. Discussion: Bilateral lower extremity cellulitis is unusual--based on review of images of his legs, this may be chronic lower extremity venous stasis changes. Pt has now received a 7 day course of antibiotics. Recommendations: -Favor discontinuation of antibiotics as these are likely chronic lower extremity venous stasis changes -Recommend elevation of bilateral lower extremities to help with edema, erythema Discussed with hospitalist. Consultation Information This patient recommendation is based on a telemedicine consult request which was completed asynchronously through chart review and information provided by the primary physician. The patient was not seen or examined today. The evaluation is consultative in nature and all patient care and treatment decisions can either be accepted or rejected by the patient's primary hospital-based treating physician using their own independent medical judgment for their patient. 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 (Phone Number For Physician Use Only) An e-consult was performed as the video cart is not functioning. Time Spent Reviewing Chart: 31+ minutes History of Present Illness Reason for Consultation: Bilateral cellulitis Attending Physician: Danica Hayden DO History of Present Illness 75 yo M with BPH with LUTS, chronic venous insufficiency, FTT, bilateral lower extremity edema, COPD, DM2, HTN, HLD, asthma, GERD who presented on 01/19 with a few days of worsening bilateral lower extremity edema and erythema, greenish drainage from RLE. On presentation, pt was afebrile, VSS. Labs showed WBC 16.4, procal 0.05. UA with >50 WBCs. MRSA nares negative. Venous duplex US without DVT. Pt started on cefepime. Wound care consulted. Leukocytosis resolved quickly, decreased to 10/42 on 01/20. Cellulitis reportedly slightly improved by 01/22, so cefepime was switched to cefazolin. Doxycycline was added 01/22. Linezolid added 01/23 due to concerns for persistent cellulitis. Allergies Allergy/AdvReac Type Severity Reaction Status Date / Time sulfamethoxazole Allergy Mild itching Verified 01/29/24 16:11 [From Bactrim] trimethoprim [From Bactrim] Allergy Mild itching Verified 01/29/24 16:11 cheese Allergy Unknown SICK TO Verified 01/29/24 16:11 STOMACH Penicillins Allergy Unknown RASH Verified 01/29/24 16:11 Home Medications Medication Instructions Recorded Confirmed Type diphenhydramine HCl 25 mg tablet 25 mg PO HS PRN Sleep 05/23/23 01/19/25 History (Benadryl Allergy) furosemide 20 mg tablet 20 mg PO QAM #90 tabs 05/19/24 01/19/25 Rx metformin 500 mg tablet 500 mg PO BID #180 tabs 09/18/24 01/19/25 Rx simvastatin 20 mg tablet 20 mg PO QPM #90 tabs 09/18/24 01/19/25 Rx hydroxyzine HCl 25 mg tablet 25 mg PO BID PRN itching #60 tabs 09/21/24 01/19/25 Rx albuterol sulfate 90 mcg/actuation 2 inh inhalation 6XD PRN shortness 09/29/24 01/19/25 Rx aerosol inhaler of breath or wheezing #8.5 grams diltiazem HCl 300 mg 300 mg PO QAM #90 caps 10/30/24 01/19/25 Rx capsule,extended release 24 hr (Cardizem CD) fluticasone fur. 100 mcg-umeclid 1 inh inhalation QAM 01/19/25 01/19/25 History 62.5 mcg-vilant 25 mcg inhalat.powder (Trelegy Ellipta) potassium chloride 20 mEq 20 meq PO QAM 01/19/25 01/19/25 History tablet,extended release Patient History Medical History Atrial fibrillation with rapid ventricular response Urinary retention 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 Arriola S/P partial colectomy H/O oral surgery H/O inguinal hernia repair Family History Other Adopted Family history unknown Denies family history of Ovarian cancer Prostate cancer Myocardial infarction Breast cancer Colorectal cancer Social History Smoking Status: Former smoker Tobacco Type: Cigarettes Age Started Using Tobacco: 15; Age Quit Using Tobacco: 47; packs per day: 2; Second Hand Exposure: No; Do You Dip or Chew Tobacco: No; Hx Alcohol Use: No Hx Substance Use: No Preferred Language: Maltese Communication Ability: Effective Visual Impairment: No Limitations Hearing Ability: Normal Gradall Operator Required: No Beliefs That Will Affect Care: None marital status: Current Living Situation: Spouse current occupational status: retired 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 Other Information That Helps Us Care for You: No Feels Safe at Home: Yes Safety Concerns: Feels Safe At This Time Childhood Exposure to Second-Hand Smoke: Yes Diet: regular during the past year weight has: remained stable Dental Care, Regularly: No Physical Activity Frequency: Does not Exercise Seatbelt Use: always Sunscreen Use: No Assistive Devices: Bedside Commode and Lift Chair Results & Data Vital Signs (Past 12 Hours) Vital Signs Temp Pulse Pulse Resp BP Pulse Ox O2 Del Method 01/25/25 07:41 36.5 C 60 22 137/72 94 Room Air 01/25/25 07:30 Room Air 01/25/25 05:45 57 L 01/25/25 02:29 36.5 C 71 18 133/70 91 Room Air 01/24/25 22:38 36.6 C 65 18 122/72 93 Room Air Laboratory Results Short CBC 01/25/25 Range/Units 05:48 WBC 8.96 (4.8-10.8) K/ul Hgb 11.7 L (14.0-18.0) g/dl Hct 37.3 L (42.0-52.0) % Plt Count 227 (130-400) K/uL Medications Administered Current Inpatient Medications Acetaminophen (Acetaminophen 325 Mg Tab) 650 mg PO Q4H PRN PRN Reason: Pain or Fever Stop: 02/18/25 21:32 Albuterol (Albuterol Hfa 8 Gm Inhaler) 2 puffs INH 6XD PRN PRN Reason: shortness of breath or wheezin Stop: 02/18/25 21:32 Ascorbic Acid (Ascorbic Acid 500 Mg Tab) 500 mg PO QAM [facility] Stop: 02/20/25 08:59 Last Admin: 01/25/25 08:20 Dose: 500 mg Dextrose (Dextrose 50% 50 Ml Syringe) 25 - 50 ml IV UD PRN; Protocol PRN Reason: Hypoglycemia Protocol Stop: 02/18/25 21:32 Diltiazem HCl (Diltiazem Hcl 300 Mg Capcr) 300 mg PO QAM [facility] Stop: 02/19/25 08:59 Last Admin: 01/25/25 08:21 Dose: 300 mg Diphenhydramine HCl (Diphenhydramine Capsule 25 Mg Cap) 25 mg PO HS PRN PRN Reason: Sleep Doxycycline Hyclate (Doxycycline Hyclate 100 Mg Cap) 100 mg PO BID [facility] Stop: 01/29/25 09:59 Last Admin: 01/25/25 08:21 Dose: 100 mg Enoxaparin Sodium (Enoxaparin 80 Mg/0.8 Ml Syr) 70 mg SQ Q12H [facility] Stop: 02/20/25 18:59 Last Admin: 01/25/25 06:23 Dose: 70 mg Fluticasone Furoate (Fluticasone Furoate 100mcg 14 Puffs/Inhaler) 1 puffs INH DAILY [facility] Stop: 02/19/25 08:59 Last Admin: 01/25/25 08:21 Dose: 1 puffs Glucagon (Glucagon For Inj 1 Mg Vial) 1 mg SQ UD PRN; Protocol PRN Reason: Hypoglycemia Protocol Stop: 02/18/25 21:32 Glucose (Glucose 40% Gel 15 Gm Tube) 15 - 30 gm PO UD PRN; Protocol PRN Reason: Hypoglycemia Protocol Stop: 02/18/25 21:32 Glucose (Glucose 10 Tab/Tube) 4 - 8 tab PO UD PRN; Protocol PRN Reason: Hypoglycemia Protocol Stop: 02/18/25 21:32 Hydroxyzine HCl (Hydroxyzine Hcl 25 Mg Tab) 25 mg PO BID PRN PRN Reason: itching Stop: 02/18/25 21:32 Thiamine HCl 200 mg/ Sodium (Chloride) 52 mls @ 210 mls/hr IV QAM [facility] Stop: 02/19/25 08:59 Last Infusion: 01/25/25 08:37 Dose: Infused Cefazolin Sodium (Ancef 2000mg) 2,000 mg in 15 mls @ 3.75 mls/min IV Q8H [facility] Stop: 01/29/25 13:59 Last Admin: 01/25/25 05:52 Dose: 3.75 mls/min Linezolid (Zyvox) 600 mg in 300 mls @ 300 mls/hr IV Q12H [facility] Stop: 01/30/25 09:59 Last Admin: 01/25/25 10:09 Dose: 300 mls/hr Sodium Chloride (Nss) 1,000 mls @ 50 mls/hr IV .Q20H [facility] Stop: 01/25/25 11:59 Last Admin: 01/25/25 08:20 Dose: 50 mls/hr Insulin Aspart (Insulin Aspart Per Unit Charge) 0 units SC ACHS [facility] Stop: 02/18/25 21:32 Last Admin: 01/25/25 07:55 Dose: Not Given Miscellaneous (Carbohydrates For Hypoglycemia ) 15 - 30 gm PO UD PRN PRN Reason: Hypoglycemia Protocol Stop: 02/18/25 21:32 Ondansetron HCl (Ondansetron Inj 2 Mg/Ml 2 Ml Vial) 4 mg IV Q6H PRN PRN Reason: NAUSEA/VOMITING Stop: 02/18/25 21:32 Simvastatin (Simvastatin 20 Mg Tab) 20 mg PO QPM [facility] Stop: 02/18/25 21:32 Last Admin: 01/24/25 20:01 Dose: 20 mg Umeclidinium/Vilanterol (Umeclidinium/Vilanterol 62.5/25mcg 7 Puffs/Inhaler) 1 puffs INH DAILY [facility] Stop: 02/19/25 08:59 Last Admin: 01/25/25 08:22 Dose: 1 puffs Zinc Sulfate (Zinc Sulfate 220 Mg Capsule) 220 mg PO QAM [facility] Stop: 02/20/25 08:59 Last Admin: 01/25/25 08:20 Dose: 220 mg (2) Leukocytosis Leukocytosis type: unspecified Qualified Code(s): D72.829 - Elevated white blood cell count, unspecified
[2025-01-25 11:30] VITALS: RESP 23
[2025-01-25 15:57] VITALS: BP 127/71; O2SAT 95
[2025-01-25 18:14] VITALS: PULSE 64
--- NOTE | 2025-01-25 18:48 | Discharge Summary ---
Discharge Summary Date of Service January 25, 2025 Principal Dx & Hospital Course #1 = Principal Diagnosis (1) Lower extremity cellulitis: Abby Arenas is a 75 yo male with PMH of type 2 diabetes, venous insufficiency; BPH, he's quitted smoking multiple decade ago he's is mainly sedentary at home. he presented to the hospital with worsening erythema and discharge from both leg and admitted for severe b/l leg cellulitis he's was on cefepime and then switched to cefazolin. also started IV lasix for compression stocking. he's was being followed by wound care services while inpatient. he has limited improvement to the wound and CTA order, found moderate PVd. vascular surgery, Dr. Gutierrez evaluate the patient noted significant pulse in the foot, and do not suspect his PVD is causing delayed in wound healing. patient denied any pain, worsening erythema. his wound remained unchanged with linezolid for 24 hours. he's was evaluated by ID specialist, and we are suspect this is chronic wound. in addition, he was recommended placement to short term rehab. however, we asked multiple times and patient declined he's has untreated sleep apnea, he was urge to tried CPAP and he's declined he was dc home on 01/25/2025 with 5 more day of duricef BID he will need rountine f/u for wound care services (2) Acute UTI: (3) Chronic venous insufficiency: (4) DMII (diabetes mellitus, type 2): Plan The patient is a 75-year-old male with PMH including BPH with LUTS, chronic venous insufficiency, leg edema, type 2 diabetes, failure to thrive, COPD, impaired gait and mobility,, depression, asthma, and GERD. He presents to the ER with a few days of worsening lower extremity, cellulitis, venous insufficiency. and greenish drainage. He undergoes unknown treatment by a family member at home. He reports that he comes into the ED because there is a new greenish drainage from the right lower extremity. DVT studies negative and cefepime 2 g IV. WBC elevated at 16.40. Urinalysis is suggestive of a urinary tract infection. acute b/l cellulitis with green drainage venous insufficiency, lymphedema acute UTI type 2 diabetes failure to thrive. asthma GERD overall plan today limited improvement with cefazolin and linezolid CTA to r/o PVD increased dose of lasix ID evaluation acute b/l leg cellulitis, venous insufficiency Bilateral lower extremity cellulitis secondary to chronic venous insufficiency right worse than left MRSA negative added linezolid switching to cefazolin q8 hours. added lasix (was on cefepime) doxycycline, f/u on CTA leg to r/o PVD ID evaluation wound care evaluate him on 01/21 He need home services for wound care and dressing change he need a medical cab for transport and need wound care follow up duplex negative for DVT Patient looks like he would probably benefit from Unna boots bilaterally Reportedly is getting some form of wound care from grand-daughter at home deposition more than 24 hours away Acute urinary tract infection/BPH with LUTS- Follow urine culture and sensitivity he was on cefepime (stop on 01/22 morning) Nonsustained V. tach- Patient had a 9 beat run of NSVT while in the ED Potassium 4.1 and magnesium 1.9 f/u on echo, continue telemetry Initial troponin normal at 7.7 Continue diltiazem Repeat in a.m. Diabetes mellitus-Hold metformin Placed Accu-Cheks with NovoLog SSI his glucose been less than 180 Hypoxia/asthma/COPD/presumptive obesity hypoventilation syndrome- trial of cpap tonight O2 saturation was at its lowest 87% on room air On 2 L of oxygen, he is maintained in 95-96 range Upon questioning, patient reports that he does have an oxygen unit at home, however, he does not use it because it does not think it makes a difference for him. He likely should resume it. Asked him to bring his unit in so it can be determined if it still functional Incentive spirometry Likely has obesity hypoventilation syndrome Trelegy Ellipta, and albuterol sulfate as needed Ambulatory dysfunction- Due to his body habitus, patient physical activity is restricted to transferring from bed to chair and back again DVT prophylaxis -lovenox 70mg q12 hours Hyperlipidemia-Continue simvastatin Notes For Next Care Provider referred to wound care for compression stocking encourage home physical therapy repeat CBC and BMP Admission HPI Per Admitting Provider The patient is a 75-year-old male with past medical history including BPH with LUTS, chronic venous insufficiency, sepsis, failure to thrive in adult, edema both lower extremities, COPD, impaired gait and mobility, diabetes mellitus type 2, depression, hypertension, asthma, dyslipidemia and GERD. He presents to the emergency department with a few days of worsening of his chronic lower extremity venous insufficiency. He undergoes unknown treatment by a family member at home. He reports that he comes into the ED because there is a new greenish drainage from the right lower extremity. Workup in the emergency department included a right lower extremity venous Doppler which was negative for DVT. He also received normal saline 500 mL bolus, and cefepime 2 g IV. WBC elevated at 16.40. Urinalysis is suggestive of a urinary tract infection. Discharge Exam VITALS: Reviewed. WEIGHT/BMI reviewed. GEN: non-toxic appearing; chronically ill PSYCH: Good Judgment. AOx3. Normal memory, mood, and affect. HEENT -Head: NC/AT; CV: RRR, no m/r/g. LUNGS: CTAB, no w/r/c. ABD: Soft, NT/ND, NBS, no masses or organomegaly. : N/A SKIN: + for erythema; no crepitus; no tenderness to palpation noted MSK: No deformities, Normal gait. NEURO: AAOx3 Discharge Plan Discharge Items Patient Disposition: Home - Home Health Services Reason For Visit: B/L LE CELLULITIS, UTI, SVT Discharge Diagnosis: acute b/l leg cellulitis, lymphedema chronic venous stasis ulcer. morbid obesity Condition on Discharge: Fair Activity: Per Instructions section Non-emergency contact: Primary Care Provider Call non-emergency contact if: you have any medication questions, your symptoms worsen, your pain is concerning for you and your rectal temperature is above 100.4 Follow-up/Referrals: Harlan Osorio MD [Primary Care Provider] - 02/03/25 11:00 am (Scheduled with Joanne Rob PA-C) Diet: Carb Consistent or DM2 and Low Sodium (2gm) Addtl Attending Provider Instructions: you will need to has daily wound care. monitor for worsening discharge or pain Pending Studies at Discharge: Yes Stand-Alone Forms: My [employer], Smoking Cessation Medications and DC Order Prescriptions: New cefadroxil 1 gram tablet 1,000 mg PO BID 5 Days Qty: 10 0RF Continued furosemide 20 mg tablet 20 mg PO QAM Qty: 90 1RF metformin 500 mg tablet 500 mg PO BID Qty: 180 3RF simvastatin 20 mg tablet 20 mg PO QPM Qty: 90 3RF hydroxyzine HCl 25 mg tablet 25 mg PO BID PRN (Reason: itching) Qty: 60 1RF Hold Instructions: Resume on 03/13/23. diltiazem HCl [Cardizem CD] 300 mg capsule,extended release 24hr 300 mg PO QAM Qty: 90 3RF diphenhydramine HCl [Benadryl Allergy] 25 mg Tablet 25 mg PO HS PRN (Reason: Sleep) potassium chloride 20 mEq tablet extended release 20 meq PO QAM Trelegy Ellipta 100-62.5-25 mcg blister with device 1 inh inhalation QAM albuterol sulfate 90 mcg/actuation HFA aerosol inhaler 2 inh inhalation 6XD PRN (Reason: shortness of breath or wheezing) Qty: 8.5 0RF Discharge Orders: Discharge Order (Routine); Ordered 01/25/25 Ordered By: Danica Higuera/Other Patient Handouts: Understanding Lymphedema, Nutrition for Wound Healing, Managing Type 2 Diabetes, Lymphedema Reducing Risk, ED Lymphedema Admission Data Admit Date/Time: 01/19/25 20:11 Attending Provider: Danica Hayden Admit Provider: Sean Shields Primary Care Provider: Harlan Osorio Other Providers: Sean Shields; [facility],Home Healthcare; Fletcher Gutierrez; Ranjana Ruiz; Namrata Marshall; Maria Fernanda Lorenzo; Giana Suarez; Olivia Early; Abigail Alvarez Other Interventions: *Nursing Shift Assessment Last Done: 01/25/25 07:30 Discharge Summary Assessment (RN) Last Done: 01/25/25 16:16 Hospital Stay Data Consultations 01/19/25 19:08 ED Decision to Admit Stat 01/24/25 12:17 Consult Vascular Surgery Routine 01/24/25 12:23 Consult Infectious Diseases Routine Diagnostic Imagining Performed 01/19/25 16:46 US venous doppler LE BI Stat 01/24/25 08:42 CTA abd aorta runof w con [CT ang AA runof w inc wo ifdon] Routine Pending Results Patient Have Any Pending Studies at Discharge: Yes Discharge Instructions Given to Patient (Per Discharging Provider) you will need to has daily wound care. monitor for worsening discharge or pain Total Time Total Time Spent Total Time Spent (In Minutes): 45 minutes Coding Level of Care Code 64559 INP/OBS DISCH >30 MIN Diagnoses Lower extremity cellulitis L03.119 Acute UTI N39.0 Chronic venous insufficiency I87.2 DMII (diabetes mellitus, type 2) E11.9 Time Spent (min) 35
--- NOTE | 2025-01-27 09:30 | Coding Query ---
NON-PRESSURE ULCER DOCUMENTATION To promote full compliance with coding requirements relating to patient care, physician participation is requested in all cases of pipe line maintenance supervisor uncertainty. Please assist us with the question(s) below: Discharge Summary states Chronic Venous Stasis Ulcers. Please document below site of ulcer(s). Please specify the known or suspected type by placing an "X" within the parenthesis (x). Chronic Non-Pressure (Stasis) Ulcer of the If possible, please check the box that provides the specific severity of the ulcer: RT (x ) limited to breakdown of skin ( ) with fat layer exposed ( ) with necrosis of muscle ( ) with necrosis of bone ( ) with muscle involvement without evidence of necrosis ( ) with bone involvement without evidence of necrosis ( ) with other specified severity ( ) with unspecified severity LT (x ) limited to breakdown of skin ( ) with fat layer exposed ( ) with necrosis of muscle ( ) with necrosis of bone ( ) with muscle involvement without evidence of necrosis ( ) with bone involvement without evidence of necrosis ( ) with other specified severity ( ) with unspecified severity Thank you Aziza GREGORY
== END 2025-01-25 17:50 | disposition home health service (06) | DRG 603 ==
LOC: ED 15:22 → SUATTDRO 20:11 → EDINP 20:11 → INTOOBSV 20:11 → 2S 21:33

== ENCOUNTER 2025-04-02 17:06 | Observation (INO) ==
--- NOTE | 2025-04-02 17:45 | Emergency Department Note ---
Impression & Plan Weakness, Cellulitis ED Provider Note NAME: VAZQUEZ PACE AGE: 75 SEX: M : 1950 ARRIVES VIA: Ambulance INFORMANT: Patient ED PROVIDER(S): Will Matthew DO CHIEF COMPLAINT: Weakness, 2 episodes of diarrhea and right leg redness HPI: Patient is a 75-year-old male who presents ER with a past medical history of immobility he has had 2 episodes of diarrhea and has been unable to make it to the bathroom. He has been trying to use the commode as he just stays in the chair. He admits to increasing edema in the lower extremity. He notes he generally takes his blood thinner. No chest pain or shortness of breath. No dysuria, urgency or frequency. No other exacerbating or remitting factors. ADDITIONAL HISTORY OBTAINED: Per HPI Chronic Medical/Social Conditions Affecting Care: Per HPI PAST MEDICAL HISTORY:See Below PAST SURGICAL HISTORY:See Below FAMILY HISTORY:See Below SOCIAL HISTORY:See Below HOME MEDICATIONS:See Below ALLERGIES:See Below VITALS:See Below PHYSICAL EXAMINATION: GENERAL: Sitting up in bed, alert, well appearing, well nourished, no distress, non-toxic EYE EXAM: normal conjunctiva. OROPHARYNX: no exudate, no erythema, lips, buccal mucosa, and tongue normal and mucous membranes are moist NECK: supple, no nuchal rigidity, no adenopathy, non-tender LUNGS: Clear to auscultation. Normal chest wall mechanics HEART: no murmurs, S1 normal and S2 normal ABDOMEN: abdomen soft, non-tender, normo-active bowel sounds, no masses, no rebound or guarding. BACK: Back is symmetrical on inspection and there is no deformity, no midline tenderness, no CVA tenderness. SKIN: no rashes and no bruising UPPER EXTREMITIES: upper extremities are grossly normal. LOWER EXTREMITIES: Pitting edema from lower extremities tracking up to the abdomen NEURO EXAM: Normal sensorium, cranial nerves II-XII grossly intact, normal speech, no gross weakness of arms, no gross weakness of legs. MEDICAL DECISION MAKING: Patient is a 75-year-old male who presents ER for above-stated complaint. IV was established and blood work was obtained. Labs showed no significant leukocytosis or significant anemia. BMP along LFTs bilirubin and troponin was negative. Lipase was normal. UA was clean. Chest x-ray was unremarkable. He does have a cellulitis of the right lower extremity. He was given IV antibiotics. He was updated bedside. He is unable to get up and walk around. He had diffuse pitting edema lower extremities. Case was discussed with the hospitalist for further evaluation management treatment. Consults/Care Managements Discussions: Per [facility] Triage Nursing notes reviewed. Limited review of prior medical records performed Vital Signs: reviewed and remarkable for no significant abnormalities Differential diagnosis: Differential diagnosis includes etiologies such as sepsis, UTI, pneumonia, metabolic, electrolyte abnormalities, cardiac sources, intracerebral event, toxicologic, neurological, as well as others were entertained. ER treatment provided: See below Diagnostics interpreted by me include EKG and cardiac monitoring as listed below: -Cardiac Monitoring: An order was placed for continuous cardiac monitoring. The monitor shows a rate of 80 with sinus rhythm. -ECG: Sinus rhythm rate of 79 Normal axis No PVCs Right bundle branch block QTc 490 -Laboratory studies:Interpreted by me as stated above in MDM and shown below. Imaging studies: Xrays: As interpreted by me: Portable AP upright 1 view of the chest shows no focal Lutrate CTs show: none Procedures:none Critical Care: None Past Med/Surg History Problem List (Updated 04/02/25 @ 22:29 by Will Matthew DO) Cellulitis (Acute) Weakness (Acute) Ambulatory dysfunction Cellulitis of both lower extremities Pedal edema (Acute) BPH w urinary obs/LUTS Chronic venous insufficiency Sepsis Failure to thrive in adult Edema of both lower extremities due to peripheral venous insufficiency Leg wound, right (Acute) COPD (chronic obstructive pulmonary disease) Hematuria Impaired gait and mobility Immobility History of sepsis Morbid obesity with BMI of 40.0-44.9, adult DVT prophylaxis DMII (diabetes mellitus, type 2) Hypomagnesemia (Acute) Depression Pruritic dermatitis Hypomagnesemia HARDIN (dyspnea on exertion) Gait abnormality Vitamin D deficiency Edema Asthma HTN (hypertension) (Acute) Prediabetes (Chronic) Benign localized hyperplasia of prostate with urinary obstruction (Chronic) Dyslipidemia (Chronic) GERD (gastroesophageal reflux disease) (Chronic) Medical History Atrial fibrillation with rapid ventricular response Urinary retention 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 Acute exacerbation of chronic obstructive pulmonary disease Clinical sepsis Cellulitis of both lower extremities Seizure-like activity Bacteremia Acute hypoxemic respiratory failure Pneumonia Influenza Diverticulosis Sleep apnea Surgical History S/P tonsillectomy and adenoidectomy History of throat surgery S/P partial colectomy H/O oral surgery H/O inguinal hernia repair Family History Other Adopted Family history unknown Denies family history of Ovarian cancer Prostate cancer Myocardial infarction Breast cancer Colorectal cancer Social History Smoking Status: Former smoker Tobacco Type: Cigarettes Age Started Using Tobacco: 15; Age Quit Using Tobacco: 47; packs per day: 2; Second Hand Exposure: No; Do You Dip or Chew Tobacco: No; Hx Alcohol Use: No Hx Substance Use: No Preferred Language: Georgian Communication Ability: Effective Visual Impairment: No Limitations Hearing Ability: Normal Crystal Slicer Required: No Beliefs That Will Affect Care: None marital status: Current Living Situation: Spouse current occupational status: retired 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 Feels Safe at Home: Yes Childhood Exposure to Second-Hand Smoke: Yes Diet: regular during the past year weight has: remained stable Dental Care, Regularly: No Physical Activity Frequency: Does not Exercise Seatbelt Use: always Sunscreen Use: No Assistive Devices: Bedside Commode and Lift Chair Allergies Allergies Allergy/AdvReac Type Severity Reaction Status Date / Time sulfamethoxazole Allergy Mild itching Verified 01/29/24 16:11 [From Bactrim] trimethoprim [From Bactrim] Allergy Mild itching Verified 01/29/24 16:11 cheese Allergy Unknown SICK TO Verified 01/29/24 16:11 STOMACH Penicillins Allergy Unknown RASH Verified 01/29/24 16:11 Home Meds Home Medications Medication Instructions Recorded Confirmed diphenhydramine HCl 25 mg tablet 25 mg PO HS PRN Sleep 05/23/23 01/27/25 (Benadryl Allergy) fluticasone fur. 100 mcg-umeclid 1 inh inhalation QAM 01/19/25 01/27/25 62.5 mcg-vilant 25 mcg inhalat.powder (Trelegy Ellipta) Previous Rx's Medication Instructions Recorded furosemide 20 mg tablet 20 mg PO QAM #90 tabs 12/10/24 metformin 500 mg tablet 500 mg PO BID #180 tabs 09/18/24 simvastatin 20 mg tablet 20 mg PO QPM #90 tabs 09/18/24 albuterol sulfate 90 mcg/actuation 2 inh inhalation 6XD PRN shortness 09/29/24 aerosol inhaler of breath or wheezing #8.5 grams diltiazem HCl 300 mg 300 mg PO QAM #90 caps 10/30/24 capsule,extended release 24 hr (Cardizem CD) hydroxyzine HCl 25 mg tablet 25 mg PO BID PRN itching #60 tabs 01/27/25 potassium chloride 20 mEq 20 meq PO QAM #30 tabs 01/27/25 tablet,extended release cephalexin 500 mg tablet 500 mg PO Q6H #28 tabs 02/26/25 Results & Data (ED) Vital Signs Vital Signs - 24 hr 04/02/25 17:09 04/02/25 17:09 04/02/25 17:35 Temperature 36.5 C 36.5 C Temperature Source Oral Oral Pulse Rate 93 H 78 Pulse Rate [Apical] 80 Respiratory Rate 16 20 Respiratory Effort / Characteristics Spontaneous Respiratory Depth Respiratory Pattern Blood Pressure 148/67 H Blood Pressure [Left Arm] 148/67 H Blood Pressure Mean 94 Blood Pressure Mean [Left Arm] 94 Blood Pressure Position [Left Arm] Pulse Oximetry 93 93 Oxygen Delivery Method Room Air Room Air Sepsis Recent Fever Within 48 Hours No Sepsis New/Unexplained Change in Mental Status No Sepsis Action Taken by Nursing No Action Required 04/02/25 17:49 04/02/25 20:02 04/02/25 21:00 Temperature 36.6 C Temperature Source Oral Pulse Rate 80 Pulse Rate [Apical] 87 90 Respiratory Rate 16 16 16 Respiratory Effort / Characteristics Non-Labored Spontaneous Non-Labored Spontaneous Respiratory Depth Normal Normal Respiratory Pattern Regular Regular Blood Pressure Blood Pressure [Left Arm] 125/86 147/72 H Blood Pressure Mean Blood Pressure Mean [Left Arm] 99 97 Blood Pressure Position [Left Arm] Semi-fowlers Semi-fowlers Pulse Oximetry 93 95 94 Oxygen Delivery Method Room Air Room Air Room Air Sepsis Recent Fever Within 48 Hours Sepsis New/Unexplained Change in Mental Status Sepsis Action Taken by Nursing 04/02/25 21:21 04/02/25 22:14 Temperature Temperature Source Pulse Rate 92 H Pulse Rate [Apical] 103 H Respiratory Rate 15 Respiratory Effort / Characteristics Non-Labored Spontaneous Respiratory Depth Normal Respiratory Pattern Regular Blood Pressure Blood Pressure [Left Arm] 143/71 H Blood Pressure Mean Blood Pressure Mean [Left Arm] 95 Blood Pressure Position [Left Arm] Semi-fowlers Pulse Oximetry 93 Oxygen Delivery Method Room Air Sepsis Recent Fever Within 48 Hours Sepsis New/Unexplained Change in Mental Status Sepsis Action Taken by Nursing Laboratory Data 04/02/25 19:18 04/02/25 17:50 Lab Results 04/02/25 04/02/25 04/02/25 Range/Units 17:50 19:10 19:18 WBC 10.42 (4.8-10.8) K/ul RBC 4.25 L (4.70-6.10) M/uL Hgb 12.3 L (14.0-18.0) g/dl Hct 37.8 L (42.0-52.0) % MCV 88.9 (80.0-100.0) fL MCH 28.9 (25.0-34.0) pg MCHC 32.5 (32.0-36.0) g/dL RDW Std Deviation 48.0 H (36.4-46.3) fL RDW Coeff of Jocelyn 14.7 H (11.5-14.5) % Plt Count 221 (130-400) K/uL MPV 8.6 L (9.4-12.4) fL Immature Gran % (Auto) 0.3 % Neut % (Auto) 72.3 % Lymph % (Auto) 14.3 % Brule % (Auto) 10.9 % Eos % (Auto) 1.9 % Baso % (Auto) 0.3 % Neut # (Auto) 7.53 H (1.40-6.50) K/uL Lymph # (Auto) 1.49 (1.20-3.40) K/uL Brule # (Auto) 1.14 H (0.11-0.59) K/uL Eos # (Auto) 0.20 (0.00-0.50) K/uL Baso # (Auto) 0.03 (0.00-0.20) K/uL Immature Gran # (Auto) 0.03 (0.01-0.20) K/uL Sodium 139 (136-145) mmol/L Potassium 3.7 (3.5-5.1) mmol/L Chloride 104 (98-107) mmol/L Carbon Dioxide 27 (21-32) mmol/L Anion Gap 8 (3-11) BUN 11 (6-23) mg/dl Creatinine 0.88 (0.6-1.4) mg/dl Est Cr Clr Drug Dosing 115.9 ml/min eGFR 89.12 BUN/Creatinine Ratio 12.5 (10-20) Glucose 114 H (70-99(Fasting)) mg/dl Calcium 9.4 (8.6-10.3) mg/dl Total Bilirubin 0.8 (0.2-1.0) mg/dl AST 15 (13-39) U/L ALT 8 (7-52) U/L Alkaline Phosphatase 78 (34-104) U/L Troponin I High Sens 7.1 (0-20) pg/ml B-Natriuretic Peptide 14 (0-100) pg/ml Total Protein 7.4 (6.0-8.3) gm/dl Albumin 3.6 (3.4-5.0) gm/dl Globulin 3.8 (2.5-4.0) gm/dl Albumin/Globulin Ratio 0.9 (0.9-2) Lipase 28 (11-82) U/L Urine Color Yellow Urine Appearance Clear (Clear) Urine pH 5.5 (4.5-7.5) Ur Specific [place] 1.015 (1.000-1.030) Urine Protein Negative (Negative) Urine Glucose (UA) Negative (Negative) Urine Ketones Negative (Negative) Urine Blood Trace H (Negative) Urine Nitrite Negative (Negative) Urine Bilirubin Negative (Negative) Urine Urobilinogen Negative (Negative) Ur Leukocyte Esterase Negative (Negative) Urine WBC (Auto) 0-5 (0-5) /hpf Urine RBC (Auto) 3-5 H (0-2) /hpf U Hyaline Cast (Auto) 3-5 H (0-2) /lpf U Epithel Cells (Auto) 0-2 (0-2) /hpf Urine Bacteria (Auto) None Seen (None Seen) Urine Comment Administered Medications Vancomycin HCl 2,750 mg/ (Sodium Chloride) 555 mls @ 200 mls/hr IV NOW STA Stop: 04/02/25 22:30 Last Admin: 04/02/25 21:45 Dose: 200 mls/hr Documented By: ALAN Discontinued Medications Furosemide (Furosemide 40 Mg/4 Ml Vial) 40 mg IV ONE ONE Stop: 04/02/25 19:40 Last Admin: 04/02/25 20:18 Dose: 40 mg Documented By: ALAN Ceftriaxone Sodium (Rocephin) 2,000 mg in 50 mls @ 100 mls/hr IV NOW STA Stop: 04/02/25 17:55 Last Infusion: 04/02/25 18:24 Dose: Infused Documented By: mls Admin: 04/02/25 17:54 Dose: 100 mls/hr Documented By: TDM Imaging Data Radiologist's Impression: Chest X-Ray 04/02/25 17:26 Chest radiograph, one view History: Edema. Comparison: January 19, 2025. Findings: Mild calcified atheromatous changes thoracic aorta unchanged. Linear band density left infrahilar region unchanged. Lung volumes are prominent. Lungs are otherwise clear. Prominent pulmonary vasculature. No chelsea edema. No appreciated acute pleural disease. Impression: Stable exam with likely left base subsegmental atelectasis and or scarring. No appreciated edema. Electronically signed by Kali Ocampo 04-02-2025 6:45 PM Discharge Plan Visit Data Chief Complaint: Swelling/Edema to Extremity ED Provider: Will Matthew Discharge Problem: Weakness, Cellulitis Condition: Fair Forms Stand Alone Forms: My [facility] Doctor Phillips Phorest Prescriptions Prescriptions: No Action furosemide 20 mg tablet 20 mg PO QAM Qty: 90 1RF metformin 500 mg tablet 500 mg PO BID Qty: 180 3RF simvastatin 20 mg tablet 20 mg PO QPM Qty: 90 3RF hydroxyzine HCl 25 mg tablet 25 mg PO BID PRN (Reason: itching) Qty: 60 1RF Hold Instructions: Resume on 03/13/23. potassium chloride 20 mEq tablet extended release 20 meq PO QAM Qty: 30 1RF cephalexin 500 mg tablet 500 mg PO Q6H Qty: 28 0RF diltiazem HCl [Cardizem CD] 300 mg capsule,extended release 24hr 300 mg PO QAM Qty: 90 3RF diphenhydramine HCl [Benadryl Allergy] 25 mg Tablet 25 mg PO HS PRN (Reason: Sleep) Trelegy Ellipta 100-62.5-25 mcg blister with device 1 inh inhalation QAM albuterol sulfate 90 mcg/actuation HFA aerosol inhaler 2 inh inhalation 6XD PRN (Reason: shortness of breath or wheezing) Qty: 8.5 0RF Referrals Referrals: Harlan Osorio MD [Primary Care Provider] - Discharge Problem: Cellulitis Qualifiers: Site of cellulitis: unspecified site Qualified Code(s): L03.90 - Cellulitis, unspecified
[2025-04-02] MEDS: cefTRIAXone SODIUM 2,000 MG/50 ML BAG IV STA (17:54)
[2025-04-02 18:23] LABS: Alanine Aminotransferase 8.0 U/L (7-52); Albumin Globulin Ratio 0.9 (0.9-2); Albumin Level 3.6 gm/dl (3.4-5.0); Alkaline Phosphatase 78.0 U/L (34-104); Anion Gap 8.0 (3-11); Bilirubin,Total 0.8 mg/dl (0.2-1.0); Blood Urea Nitrogen 11.0 mg/dl (6-23); Calcium 9.4 mg/dl (8.6-10.3); Carbon Dioxide 27.0 mmol/L (21-32); Chloride 104.0 mmol/L (98-107); Creatinine Clr Calc Pharmacy 115.9 ml/min; Globulin 3.8 gm/dl (2.5-4.0); Glucose 114.0 mg/dl (70-99(Fasting)); Lipase 28.0 U/L (11-82); Potassium 3.7 mmol/L (3.5-5.1); Sodium 139.0 mmol/L (136-145); Total Protein 7.4 gm/dl (6.0-8.3)
--- NOTE | 2025-04-02 18:45 | XRay Report ---
Chest radiograph, one view History: Edema. Comparison: January 19, 2025. Findings: Mild calcified atheromatous changes thoracic aorta unchanged. Linear band density left infrahilar region unchanged. Lung volumes are prominent. Lungs are otherwise clear. Prominent pulmonary vasculature. No chelsea edema. No appreciated acute pleural disease. Impression: Stable exam with likely left base subsegmental atelectasis and or scarring. No appreciated edema. Electronically signed by Kali Ocampo 04-02-2025 6:45 PM
[2025-04-02 19:31] LABS: Hematocrit (blood only) 37.8 % (42.0-52.0); Hemoglobin 12.3 g/dl (14.0-18.0); Immature Granulocytes # (auto) 0.03 K/uL (0.01-0.20); Immature Granulocytes % (auto) 0.3 %; Mean Corpuscular Hemoglobin 28.9 pg (25.0-34.0); Mean Corpuscular Volume 88.9 fL (80.0-100.0); Platelet Count 221 K/uL (130-400); RDW Standard Deviation 48.0 fL (36.4-46.3); Red Blood Count 4.25 M/uL (4.70-6.10); White Blood Count 10.42 K/ul (4.8-10.8)
[2025-04-02 19:39] LABS: Appearance Urine Clear (Clear); Bacteria Urine Automated None Seen (None Seen); Epithelial Cell Urine Auto 0-2 /hpf (0-2); Glucose Urine UA Negative (Negative); WBC Urine Automated 0-5 /hpf (0-5)
[2025-04-02] MEDS ORDERED: VANCOMYCIN CONSULT ACTIVE PRN ×2 (19:39→23:00)
--- NOTE | 2025-04-02 19:49 | History & Physical Report ---
Date of Service April 02, 2025 Assessment & Plan (1) Cellulitis of both lower extremities: (2) Edema of both lower extremities due to peripheral venous insufficiency: (3) Ambulatory dysfunction: (4) Failure to thrive in adult: Plan Patient is a 75-year-old with past medical history of A-fib, chronic venous insufficiency, COPD, JOSH, BPH, HTN, GERD, HLD, T2DM. patient presented via EMS due to 2 days of diarrhea and bilateral lower extremity edema and erythema. He is being admitted for bilateral lower extremity cellulitis requiring IV antibiotics. #BL LE cellulitis - Recurrent. Non-septic at time of admission - no leukocytosis, VSS. - given Rocephin in ED - transition to cefepime and vancomycin - wound care consulted - daily dressing changes - blood cultures ordered however note abx given in ED - trend CBC #chronic venous insufficiency - Eval by vascular during recent admission - low concern for arterial insufficiency. - on lasix 20mg PO daily at home - given lasix 40 mg IV x 1 on admission, continue 40 mg IV daily - continue daily potassium supplement - trend BMP and mag with IV diuretic use - promote leg elevation #ambulatory dysfunction - lives in recliner at baseline. Granddaughter provides 31/12 care. - PT/OT consulted #diarrhea - 1-2 episodes per day x2 days. LFTs WNL, no leukocytosis. - stool cultures ordered - defer AP CT given mild symptoms and abdomen nontender - if clinically worsens, could consider #a fib - Sinus rhythm on admission. Electrolytes stable. - No anticoagulation at baseline - continue diltiazem #T2DM - hold metformin, SSI while inpatient. #COPD - continue home inhalers #JOSH - noncompliant with home CPAP, defer. VTE ppx: Lovenox daily Dispo: med/tele Admission and Anticipated Discharge Date Admission Date: 04/02/25 History of Present Illness Chief Complaint: swelling to extremity Primary Care Provider: Harlan Osorio MD Patient is a 75-year-old with past medical history of A-fib, chronic venous insufficiency, COPD, JOSH, BPH, HTN, GERD, HLD, T2DM. patient presented via EMS due to 2 days of diarrhea and bilateral lower extremity edema and erythema. He is being admitted for bilateral lower extremity cellulitis requiring IV antibiotics. Patient does not ambulate at baseline, PT/OT consulted. Patient seen at bedside. He stated he lives at home with his granddaughter providing him 31/12 care. He lives in his recliner and is unable to ambulate at baseline. He only gets up to use a bedside urinal. He stated his granddaughter told him to come in for concern for C. difficile as he has had diarrhea for 2 days. He stated he has had 1-2 episodes of diarrhea for the past 2 days of loose stools, denies watery stools. He denies any hematochezia. He denies any history of C. difficile Or recent exposures however has recently been on Keflex approximately 1 month ago. Patient also was concerned about his bilateral lower extremity edema which did not improve after admission from 01/19 to 01/25 for lower extremity cellulitis (treated with cefepime and, transition to cefazolin, and then duricef). he stated the redness returned several days ago. He saw wound care when he was hospitalized 2 months ago however does not follow-up with them in the outpatient setting as he is unable to get out of his recliner. He does endorse a chronic cough since he had COVID. He denies any chest pain, shortness of breath, rhinorrhea, abdominal pain, dysuria, difficulty urinating, hematuria. He denies nicotine use. He does not use his CPAP for sleep apnea as he is unable to tolerate it. He took his morning medications including Lasix 20 mg p.o., is due for evening medications. He stated he was on Eliquis for afib however never had the medication filled and is no longer on it. He wishes to be full code. Allergies Allergy/AdvReac Type Severity Reaction Status Date / Time sulfamethoxazole Allergy Mild itching Verified 01/29/24 16:11 [From Bactrim] trimethoprim [From Bactrim] Allergy Mild itching Verified 01/29/24 16:11 cheese Allergy Unknown SICK TO Verified 01/29/24 16:11 STOMACH Penicillins Allergy Unknown RASH Verified 01/29/24 16:11 Home Medications Medication Instructions Recorded Confirmed Type diphenhydramine HCl 25 mg tablet 25 mg PO HS PRN Sleep 05/23/23 01/27/25 History (Benadryl Allergy) furosemide 20 mg tablet 20 mg PO QAM #90 tabs 05/19/24 01/27/25 Rx metformin 500 mg tablet 500 mg PO BID #180 tabs 09/18/24 01/27/25 Rx simvastatin 20 mg tablet 20 mg PO QPM #90 tabs 09/18/24 01/27/25 Rx albuterol sulfate 90 mcg/actuation 2 inh inhalation 6XD PRN shortness 09/29/24 01/27/25 Rx aerosol inhaler of breath or wheezing #8.5 grams diltiazem HCl 300 mg 300 mg PO QAM #90 caps 10/30/24 01/27/25 Rx capsule,extended release 24 hr (Cardizem CD) fluticasone fur. 100 mcg-umeclid 1 inh inhalation QAM 01/19/25 01/27/25 History 62.5 mcg-vilant 25 mcg inhalat.powder (Trelegy Ellipta) hydroxyzine HCl 25 mg tablet 25 mg PO BID PRN itching #60 tabs 01/27/25 Rx potassium chloride 20 mEq 20 meq PO QAM #30 tabs 01/27/25 Rx tablet,extended release cephalexin 500 mg tablet 500 mg PO Q6H #28 tabs 02/26/25 Rx Past Med/Surg History Problem List (Updated 04/02/25 @ 22:29 by Will Matthew DO) Cellulitis (Acute) Weakness (Acute) Ambulatory dysfunction Cellulitis of both lower extremities Pedal edema (Acute) BPH w urinary obs/LUTS Chronic venous insufficiency Sepsis Failure to thrive in adult Edema of both lower extremities due to peripheral venous insufficiency Leg wound, right (Acute) COPD (chronic obstructive pulmonary disease) Hematuria Impaired gait and mobility Immobility History of sepsis Morbid obesity with BMI of 40.0-44.9, adult DVT prophylaxis DMII (diabetes mellitus, type 2) Hypomagnesemia (Acute) Depression Pruritic dermatitis Hypomagnesemia HARDIN (dyspnea on exertion) Gait abnormality Vitamin D deficiency Edema Asthma HTN (hypertension) (Acute) Prediabetes (Chronic) Benign localized hyperplasia of prostate with urinary obstruction (Chronic) Dyslipidemia (Chronic) GERD (gastroesophageal reflux disease) (Chronic) Medical History Atrial fibrillation with rapid ventricular response Urinary retention 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 Acute exacerbation of chronic obstructive pulmonary disease Clinical sepsis Cellulitis of both lower extremities Seizure-like activity Bacteremia Acute hypoxemic respiratory failure Pneumonia Influenza Diverticulosis Sleep apnea Surgical History S/P tonsillectomy and adenoidectomy History of throat surgery S/P partial colectomy H/O oral surgery H/O inguinal hernia repair Family History Other Adopted Family history unknown Denies family history of Ovarian cancer Prostate cancer Myocardial infarction Breast cancer Colorectal cancer Social History Smoking Status: Former smoker Tobacco Type: Cigarettes Age Started Using Tobacco: 15; Age Quit Using Tobacco: 47; packs per day: 2; Second Hand Exposure: No; Do You Dip or Chew Tobacco: No; Hx Alcohol Use: Yes Alcohol type: beer Hx Substance Use: No Preferred Language: German Communication Ability: Effective Visual Impairment: No Limitations Hearing Ability: Normal Chiropractic Assistant Required: No Beliefs That Will Affect Care: None marital status: Current Living Situation: Spouse and Family current occupational status: retired 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 Non-toxic appearing. HEENT- EOMI, mucous membranes moist. Hearing grossly intact. Heart-normal S1 and S2. No murmurs, rubs or gallops. Lungs-decreased bilaterally, no respiratory distress, no accessory muscle use. Abdomen-normal bowel sounds and soft. No ascites noted. Non-tender. Extremities- BL LE +3 pitting edema with cellulitic changes and signs of chronic venous stasis. See image below. Psychiatric-normal affect. Results & Data Results & Data Vital Signs (Past 12 Hours) Vital Signs Temp Pulse Pulse Resp BP BP Pulse Ox 04/02/25 17:49 80 16 93 04/02/25 17:35 78 04/02/25 17:09 36.5 C 80 20 148/67 H 93 04/02/25 17:09 36.5 C 93 H 16 148/67 H 93 O2 Del Method 04/02/25 17:49 Room Air 04/02/25 17:35 04/02/25 17:09 Room Air 04/02/25 17:09 Room Air Laboratory Results Reviewed CBC, CMP, UA, troponin, BNP Diagnostic Findings reviewed CXR Medications Administered ED - Rocephin 2g IV admission - vancomycin + cefepime, lasix 40mg IV ECG Additional Comments: nsr, incomplete RBBB rate 79 qtc 490 Code Status & VTE Plan Code Status full code VTE Prophylaxis Plan VTE Prophylaxis will be ordered: Yes Supervising Physician Co-Signing Physician Notes Attending addendum: I have physically seen this patient, have supervised the CRISTINE's activities, and agree with the H&P unless as otherwise noted. Assessment and Plan: The patient is a 75-year-old male with past medical history including A-fib, chronic venous insufficiency, COPD, JOSH, BPH, hypertension, GERD, hyperlipidemia and diabetes mellitus type 2. He was admitted to ED via EMS due to 2 days of diarrhea, bilateral lower extremity edema and erythema. [facility]. Bilateral lower extremity cellulitis- Given ceftriaxone 2 g IV in ED Admitted on vancomycin IV and cefepime ID Consult wound care Daily dressing changes Follow blood cultures and sensitivity Follow-up wound culture and sensitivity Serial CBC Chronic venous insufficiency- Will promote increase in Lasix dose to prevent worsening cellulitis Typically on Lasix 40 mg orally daily Give Lasix 40 mg IV, and 40 mg IV Q Serial CBC and basic metabolic panel Remaining orders and notations PG Care Time/CCT Total # of Minutes Spent Total Time Spent with Patient: Total time spent is greater than 50% in coordination of care (as documented) at patient's floor/unit and/or counseling patient: Coding Level of Care Code 10281 INT INP/OBS CARE 375MIN Diagnoses Cellulitis of both lower extremities L03.115; L03.116 Edema of both lower extremities due to peripheral venous insufficiency I87.2 Ambulatory dysfunction R26.2 Failure to thrive in adult R62.7
[2025-04-02] MEDS: FUROSEMIDE 40 MG/4 ML VIAL IV ONE (20:18)
[2025-04-02] MEDS: VANCOMYCIN HCL 2,750 MG in SODIUM CHLORIDE 0.9% 500 ML IV STA (21:45)
[2025-04-02] MEDS ORDERED: ACETAMINOPHEN 325 MG TAB PO PRN (23:00)
[2025-04-02] MEDS ORDERED: DEXTROSE 50% 50 ML SYRINGE IV PRN (23:00)
[2025-04-02] MEDS ORDERED: GLUCOSE 40% GEL 15 GM TUBE PO PRN (23:00)
[2025-04-02] MEDS ORDERED: DOCUSATE SODIUM 100 MG CAP PO PRN (23:00)
[2025-04-02] MEDS ORDERED: MELATONIN 3 MG TAB PO PRN (23:00)
[2025-04-02] MEDS ORDERED: ONDANSETRON INJ 2 MG/ML 2 ML VIAL IV PRN (23:00)
[2025-04-02] MEDS ORDERED: GLUCOSE 10 TAB/TUBE PO PRN (23:00)
[2025-04-02] MEDS ORDERED: CARBOHYDRATES FOR HYPOGLYCEMIA PO PRN (23:00)
[2025-04-02] MEDS ORDERED: ALBUTEROL HFA 8 GM INHALER INH PRN (23:00)
[2025-04-02] MEDS ORDERED: GLUCAGON FOR INJ 1 MG VIAL SQ PRN (23:00)
[2025-04-02 23:38] LABS: Cdiff Toxin B Gene (2yr or >) Negative Cdiff Gene (Neg)
[2025-04-02] MEDS: INSULIN ASPART PER UNIT CHARGE SC SCH (23:39)
[2025-04-03 00:12] LABS: Adenovirus F 40/41 PCR Not Detected (NotDetected); Campylobacter PCR Not Detected (NotDetected); Enteroaggregative E.coli(EAEC) Not Detected (NotDetected); Shiga-like Toxin E.coli (STEC) Not Detected (NotDetected); Vibrio species PCR Not Detected (NotDetected)
[2025-04-03] MEDS: SIMVASTATIN 20 MG TAB PO SCH (00:52)
[2025-04-03] MEDS: ENOXAPARIN INJ 40 MG/0.4 ML SYR SQ SCH (00:52)
[2025-04-03] MEDS: CEFEPIME 2000MG 2,000 MG/20 ML SYR IV SCH (00:53)
[2025-04-03] MEDS: VANCOMYCIN HCL 1,500 MG in SODIUM CHLORIDE 0.9% 500 ML IV SCH (01:28)
[2025-04-03 07:01] LABS: Hematocrit (blood only) 36.8 % (42.0-52.0); Hemoglobin 11.8 g/dl (14.0-18.0); Immature Granulocytes # (auto) 0.02 K/uL (0.01-0.20); Immature Granulocytes % (auto) 0.2 %; Mean Corpuscular Hemoglobin 28.7 pg (25.0-34.0); Mean Corpuscular Volume 89.5 fL (80.0-100.0); Platelet Count 179 K/uL (130-400); RDW Standard Deviation 48.2 fL (36.4-46.3); Red Blood Count 4.11 M/uL (4.70-6.10); White Blood Count 8.68 K/ul (4.8-10.8)
[2025-04-03 07:34] LABS: Alanine Aminotransferase 5.0 U/L (7-52); Albumin Globulin Ratio 0.8 (0.9-2); Albumin Level 2.8 gm/dl (3.4-5.0); Alkaline Phosphatase 58.0 U/L (34-104); Anion Gap 7.0 (3-11); Bilirubin,Total 0.6 mg/dl (0.2-1.0); Blood Urea Nitrogen 9.0 mg/dl (6-23); Calcium 8.2 mg/dl (8.6-10.3); Carbon Dioxide 28.0 mmol/L (21-32); Chloride 106.0 mmol/L (98-107); Creatinine Clr Calc Pharmacy 95.4 ml/min; Globulin 3.3 gm/dl (2.5-4.0); Glucose 93.0 mg/dl (70-99(Fasting)); Magnesium 1.6 mg/dl (1.7-2.4); Potassium 3.3 mmol/L (3.5-5.1); Sodium 141.0 mmol/L (136-145); Total Protein 6.1 gm/dl (6.0-8.3)
[2025-04-03] MEDS: POTASSIUM CHLORIDE CRTAB 20 MEQ TABCR PO SCH (08:02)
[2025-04-03] MEDS: INFLUENZA VACC TS2025-26(65y+)/PF (IIV3) 0.5mL Syr IM ONE (08:02)
[2025-04-03] MEDS: FUROSEMIDE 40 MG/4 ML VIAL IV SCH (08:02)
[2025-04-03] MEDS: UMECLIDINIUM/VILANTEROL 62.5/25MCG 7 PUFFS/INHALER INH SCH (08:04)
[2025-04-03] MEDS: FLUTICASONE FUROATE 100MCG 14 PUFFS/INHALER INH SCH (08:05)
[2025-04-03] MEDS ORDERED: NON-FORMULARY MEDICATION (Fluticasone-Umeclidin-Vilanter [Trelegy Ellipta] 100-62.5-25 mcg INH SCH (09:00)
[2025-04-03] MEDS: POTASSIUM CHLORIDE 20 MEQ/15 ML UDC PO SCH (10:33)
[2025-04-03] MEDS: LINEZOLID 600 MG TAB PO SCH (10:33)
--- NOTE | 2025-04-03 14:22 | Hospitalist Progress Note ---
Date of Service April 03, 2025 Assessment & Plan (1) Cellulitis of both lower extremities: (2) Edema of both lower extremities due to peripheral venous insufficiency: (3) Ambulatory dysfunction: (4) Failure to thrive in adult: Plan Mr. Alton Arenas is is a 75-year-old with past medical history of A-fib, chronic venous insufficiency, type 2 DM COPD, JOSH, BPH, HTN, GERD, HLD patient presented via EMS due to 2 days of diarrhea and bilateral lower extremity edema and erythema. He is being admitted for bilateral lower extremity cellulitis requiring IV antibiotics. #BL LE cellulitis - Recurrent. Non-septic at time of admission - no leukocytosis, VSS. - cefazolin IV 2g q8 hours and linezold oral f/u blood culture - likely need low dose lasix once BP stable - wound care consulted - daily dressing changes - blood cultures ordered however note abx given in ED - trend CBC diarrhea episode, #chronic venous insufficiency - Eval by vascular during recent admission - low concern for arterial insufficiency. - on lasix 20mg PO daily at home - given lasix 40 mg IV x 1 on admission, continue 40 mg IV daily - continue daily potassium supplement - trend BMP and mag with IV diuretic use - promote leg elevation #ambulatory dysfunction - lives in recliner at baseline. Granddaughter provides 31/12 care. - PT/OT consulted #diarrhea - 1-2 episodes per day x2 days. LFTs WNL, no leukocytosis. - stool cultures ordered - defer AP CT given mild symptoms and abdomen nontender - if clinically worsens, could consider #a fib - Sinus rhythm on admission. Electrolytes stable. - No anticoagulation at baseline - continue diltiazem #T2DM - hold metformin, SSI while inpatient. #COPD - continue home inhalers #JOSH - noncompliant with home CPAP, defer. VTE ppx: Lovenox daily Dispo: med/tele Admission and Anticipated Discharge Date Admission Date: April 02, 2025 Subjective he has worsening leg edema for 2-3 weeks, but now having cellulitis since 3-4 days ago he's will need IV cefazolin and IV linezold monitor for abdominal rash and back while on cefazolin nutrition concern poor oral intake, hold off off low salt diet PRN lasix as needed discharge no sooner than Saturday/Saturday Review of Systems Review of Systems: Constitutional: No Weight Change, No Fever, No Chills, No Night Sweats, No Fatigue, No Malaise Cardiovascular: No Chest Pain, No SOB, No PND, No Dyspnea on Exertion, No Orthopnea, No Claudication, No Edema, No Palpitations Respiratory: No Cough, No Sputum, No Wheezing, No Smoke Exposure, No Dyspnea Gastrointestinal: No Nausea, No Vomiting, No Diarrhea, No Constipation, No Pain, No Heartburn, No Anorexia, No Dysphagia, No Hematochezia, No Melena, No Flatulence, No Jaundice Musculoskeletal: + for lymphedema. + for leg cellulitis; Skin: + for pruritis; + for bleeding from scratching Neuro: No Weakness, No Numbness, No Paresthesias, No Loss of Consciousness, No Syncope, No Dizziness, No Headache, No Coordination Changes, No Recent Falls endocrine: + for diabetes Physical Exam Physical Exam: VITALS: Reviewed. WEIGHT/BMI reviewed. GEN: Healthy appearing, well-developed, NAD. PSYCH: Good Judgment. AOx3. Normal memory, mood, and affect. HEENT -Head: NC/AT; NECK: Supple, with no masses. CV: RRR, no m/r/g. LUNGS: CTAB, no w/r/c. ABD: Soft, NT/ND, NBS, no masses or organomegaly. : N/A SKIN: + for scaling; + for erythmea; + for edema in the leg. EXT: No clubbing, cyanosis, or edema. NEURO: AAox3 Results & Data Results & Data Vital Signs (Past 12 Hours) Vital Signs Temp Pulse Pulse Resp BP Pulse Ox O2 Del Method 04/03/25 12:57 36.6 C 85 18 109/67 90 Room Air 04/03/25 08:30 36.9 C 86 18 119/64 91 Room Air 04/03/25 07:22 86 04/03/25 04:27 36.4 C L 97 H 17 109/65 90 Room Air Laboratory Results Laboratory Results - last 72 hr 04/02/25 04/02/25 04/02/25 17:50 19:10 19:18 WBC 10.42 RBC 4.25 L Hgb 12.3 L Hct 37.8 L MCV 88.9 MCH 28.9 MCHC 32.5 RDW Std Deviation 48.0 H RDW Coeff of Jocelyn 14.7 H Plt Count 221 MPV 8.6 L Immature Gran % (Auto) 0.3 Neut % (Auto) 72.3 Lymph % (Auto) 14.3 Bates % (Auto) 10.9 Eos % (Auto) 1.9 Baso % (Auto) 0.3 Neut # (Auto) 7.53 H Lymph # (Auto) 1.49 Bates # (Auto) 1.14 H Eos # (Auto) 0.20 Baso # (Auto) 0.03 Immature Gran # (Auto) 0.03 Sodium 139 Potassium 3.7 Chloride 104 Carbon Dioxide 27 Anion Gap 8 BUN 11 Creatinine 0.88 Est Cr Clr Drug Dosing 115.9 eGFR 89.12 BUN/Creatinine Ratio 12.5 Glucose 114 H POC Glucose Calcium 9.4 Magnesium Total Bilirubin 0.8 AST 15 ALT 8 Alkaline Phosphatase 78 Troponin I High Sens 7.1 B-Natriuretic Peptide 14 Total Protein 7.4 Albumin 3.6 Globulin 3.8 Albumin/Globulin Ratio 0.9 Lipase 28 Urine Color Yellow Urine Appearance Clear Urine pH 5.5 Ur Specific Fulton 1.015 Urine Protein Negative Urine Glucose (UA) Negative Urine Ketones Negative Urine Blood Trace H Urine Nitrite Negative Urine Bilirubin Negative Urine Urobilinogen Negative Ur Leukocyte Esterase Negative Urine WBC (Auto) 0-5 Urine RBC (Auto) 3-5 H U Hyaline Cast (Auto) 3-5 H U Epithel Cells (Auto) 0-2 Urine Bacteria (Auto) None Seen Urine Comment Stl C. cayetanensis PCR Stool Rotavirus A PCR Stl Adenov F 40/ PCR Stool Astrovirus (PCR) Stool Campylobacter PCR Stl C. diff Tox B Gene Stl C. diff [id number] Stool Cryptosporidium PCR Stl E.coli Shiga Tox PCR Stl Enterotoxigenic E PCR Stool EPEC (PCR) Stool EAEC (PCR) Stl E. histolytica PCR Stool Giardia Lamblia PCR Stool Salmonella PCR Stool Sapovirus (PCR) Stl P. shigelloides PCR Stl Shigella/EIEC PCR St Y.enterocolitica PCR Stool Vibrio (PCR) Stl Vibrio cholerae PCR Stl Norovirus GI/GII PCR 04/02/25 04/02/25 04/03/25 22:39 23:04 06:28 WBC 8.68 RBC 4.11 L Hgb 11.8 L Hct 36.8 L MCV 89.5 MCH 28.7 MCHC 32.1 RDW Std Deviation 48.2 H RDW Coeff of Jocelyn 14.9 H Plt Count 179 MPV 10.3 Immature Gran % (Auto) 0.2 Neut % (Auto) 64.6 Lymph % (Auto) 20.7 Bates % (Auto) 11.4 Eos % (Auto) 2.9 Baso % (Auto) 0.2 Neut # (Auto) 5.60 Lymph # (Auto) 1.80 Bates # (Auto) 0.99 H Eos # (Auto) 0.25 Baso # (Auto) 0.02 Immature Gran # (Auto) 0.02 Sodium 141 Potassium 3.3 L Chloride 106 Carbon Dioxide 28 Anion Gap 7 BUN 9 Creatinine 0.93 Est Cr Clr Drug Dosing 95.4 eGFR 85.10 BUN/Creatinine Ratio 9.7 L Glucose 93 POC Glucose 121 H Calcium 8.2 L Magnesium 1.6 L Total Bilirubin 0.6 AST 11 L ALT 5 L Alkaline Phosphatase 58 Troponin I High Sens B-Natriuretic Peptide Total Protein 6.1 Albumin 2.8 L Globulin 3.3 Albumin/Globulin Ratio 0.8 L Lipase Urine Color Urine Appearance Urine pH Ur Specific Fulton Urine Protein Urine Glucose (UA) Urine Ketones Urine Blood Urine Nitrite Urine Bilirubin Urine Urobilinogen Ur Leukocyte Esterase Urine WBC (Auto) Urine RBC (Auto) U Hyaline Cast (Auto) U Epithel Cells (Auto) Urine Bacteria (Auto) Urine Comment Stl C. cayetanensis PCR Not Detected Stool Rotavirus A PCR Not Detected Stl Adenov F 40/41 PCR Not Detected Stool Astrovirus (PCR) Not Detected Stool Campylobacter PCR Not Detected Stl C. diff Tox B Gene Negative Cdiff Gene Stl C. diff [id number] NEGATIVE Stool Cryptosporidium PCR Not Detected Stl E.coli Shiga Tox PCR Not Detected Stl Enterotoxigenic E PCR Not Detected Stool EPEC (PCR) Not Detected Stool EAEC (PCR) Not Detected Stl E. histolytica PCR Not Detected Stool Giardia Lamblia PCR Not Detected Stool Salmonella PCR Not Detected Stool Sapovirus (PCR) Not Detected Stl P. shigelloides PCR Not Detected Stl Shigella/EIEC PCR Not Detected St Y.enterocolitica PCR Not Detected Stool Vibrio (PCR) Not Detected Stl Vibrio cholerae PCR Not Detected Stl Norovirus GI/GII PCR Not Detected 04/03/25 04/03/25 08:08 12:26 WBC RBC Hgb Hct MCV MCH MCHC RDW Std Deviation RDW Coeff of Jocelyn Plt Count MPV Immature Gran % (Auto) Neut % (Auto) Lymph % (Auto) Bates % (Auto) Eos % (Auto) Baso % (Auto) Neut # (Auto) Lymph # (Auto) Bates # (Auto) Eos # (Auto) Baso # (Auto) Immature Gran # (Auto) Sodium Potassium Chloride Carbon Dioxide Anion Gap BUN Creatinine Est Cr Clr Drug Dosing eGFR BUN/Creatinine Ratio Glucose POC Glucose 89 98 Calcium Magnesium Total Bilirubin AST ALT Alkaline Phosphatase Troponin I High Sens B-Natriuretic Peptide Total Protein Albumin Globulin Albumin/Globulin Ratio Lipase Urine Color Urine Appearance Urine pH Ur Specific Fulton Urine Protein Urine Glucose (UA) Urine Ketones Urine Blood Urine Nitrite Urine Bilirubin Urine Urobilinogen Ur Leukocyte Esterase Urine WBC (Auto) Urine RBC (Auto) U Hyaline Cast (Auto) U Epithel Cells (Auto) Urine Bacteria (Auto) Urine Comment Stl C. cayetanensis PCR Stool Rotavirus A PCR Stl Adenov F 40/41 PCR Stool Astrovirus (PCR) Stool Campylobacter PCR Stl C. diff Tox B Gene Stl C. diff [id number] Stool Cryptosporidium PCR Stl E.coli Shiga Tox PCR Stl Enterotoxigenic E PCR Stool EPEC (PCR) Stool EAEC (PCR) Stl E. histolytica PCR Stool Giardia Lamblia PCR Stool Salmonella PCR Stool Sapovirus (PCR) Stl P. shigelloides PCR Stl Shigella/EIEC PCR St Y.enterocolitica PCR Stool Vibrio (PCR) Stl Vibrio cholerae PCR Stl Norovirus GI/GII PCR PG Care Time/CCT Total # of Minutes Spent Total Time Spent with Patient: Total time spent is greater than 50% in coordination of care (as documented) at patient's floor/unit and/or counseling patient: Coding Level of Care Code 23837 SUB INP/OBS CARE 25MIN Diagnoses Cellulitis of both lower extremities L03.115; L03.116 Edema of both lower extremities due to peripheral venous insufficiency I87.2 Ambulatory dysfunction R26.2 Failure to thrive in adult R62.7 Time Spent (min) 25
--- NOTE | 2025-04-03 16:58 | Electrocardiogram Report ---
Test Reason : Blood Pressure : */* mmHG Vent. Rate : 79 BPM Atrial Rate : 79 BPM P-R Int : 124 ms QRS Dur : 114 ms QT Int : 428 ms P-R-T Axes : 69 60 57 degrees QTcB Int : 490 ms Normal sinus rhythm Incomplete right bundle branch block Prolonged QT Abnormal ECG When compared with ECG of 19-Jan-2025 17:21, No significant change was found Confirmed by Tariq Mejía ([id number]) on 04/03/2025 4:58:04 PM Referred By: REFERRED SELF Confirmed By: Tariq Mejía
[2025-04-03] MEDS ORDERED: Nursing to Pharmacy Communication SCH (18:00)
[2025-04-04 08:00] LABS: Hematocrit (blood only) 36.1 % (42.0-52.0); Hemoglobin 11.2 g/dl (14.0-18.0); Mean Corpuscular Hemoglobin 28.1 pg (25.0-34.0); Mean Corpuscular Volume 90.5 fL (80.0-100.0); Platelet Count 163 K/uL (130-400); RDW Standard Deviation 49.1 fL (36.4-46.3); Red Blood Count 3.99 M/uL (4.70-6.10); White Blood Count 7.90 K/ul (4.8-10.8)
[2025-04-04 08:22] LABS: Anion Gap 6 (3-11); Blood Urea Nitrogen 8 mg/dl (6-23); Calcium 8.0 mg/dl (8.6-10.3); Carbon Dioxide 28 mmol/L (21-32); Chloride 105 mmol/L (98-107); Creatinine Clr Calc Pharmacy 81.7 ml/min; Glucose 88 mg/dl (70-99(Fasting)); Sodium 139 mmol/L (136-145)
[2025-04-04 09:18] LABS: Magnesium 1.5 mg/dl (1.7-2.4); Potassium 3.6 mmol/L (3.5-5.1)
[2025-04-04] MEDS ORDERED: Nursing to Pharmacy Communication SCH (09:45)
[2025-04-04] MEDS ORDERED: MAG SULFATE 50% 1GM/2ML VIAL IV ONE (09:52)
[2025-04-04] MEDS: MAGNESIUM SULFATE / D5W 1 GM/100 ML BAG IV SCH (11:14)
[2025-04-04] MEDS: POTASSIUM CHLORIDE CRTAB 20 MEQ TABCR PO SCH (11:14)
--- NOTE | 2025-04-04 11:44 | Hospitalist Progress Note ---
Date of Service April 04, 2025 Assessment & Plan (1) Cellulitis of both lower extremities: (2) Edema of both lower extremities due to peripheral venous insufficiency: (3) Ambulatory dysfunction: (4) Failure to thrive in adult: Plan Patient is a 75-year-old with past medical history of A-fib, chronic venous insufficiency, COPD, JOSH, BPH, HTN, GERD, HLD, T2DM. patient presented via EMS due to 2 days of diarrhea and bilateral lower extremity edema and erythema. He is being admitted for bilateral lower extremity cellulitis requiring IV antibiotics. #BL LE cellulitis - Recurrent. Non-septic at time of admission - no leukocytosis, VSS. he's on cefazolin. and linezolid low dose lasix to address lymphedema - wound care consulted - daily dressing changes blood culture from 04/02 negative hypokalemia, Kcl 40mg TABLET BID #chronic venous insufficiency - Eval by vascular during recent admission - low concern for arterial insufficiency. - on lasix 20mg PO daily at home potentially switch to bumex upon discharge - given lasix 40 mg IV x 1 on admission, continue 40 mg IV daily - increasing his KCL tablet supplementation - promote leg elevation #ambulatory dysfunction - lives in recliner at baseline. Granddaughter provides 31/12 care. - PT/OT consulted #diarrhea - 1-2 episodes per day x2 days. LFTs WNL, no leukocytosis. - stool cultures ordered - defer AP CT given mild symptoms and abdomen nontender - if clinically worsens, could consider no further diarrhea; abdomen non-tender to palpation #a fib - Sinus rhythm on admission. Electrolytes stable. - No anticoagulation at baseline - continue diltiazem #T2DM - hold metformin, SSI while inpatient. #COPD - continue home inhalers on room air; stable, no wheezing #JOSH - noncompliant with home CPAP, defer. VTE ppx: Lovenox daily Dispo: med/tele Admission and Anticipated Discharge Date Admission Date: April 02, 2025 Subjective he's on IV cefazolin and IV linezold still has significant erythema, cellulitis still need IV antibiotics, no abdominal rash, no nausea, no vomiting no other distress he does not want prison placement he live with his grand-daughter and great-grandson, which is 10 years ago he is mostly bedbound and no longer leave his house he been declining screening colonoscopy Physical Exam Physical Exam: VITALS: Reviewed. WEIGHT/BMI reviewed. GEN: Healthy appearing, well-developed, NAD. PSYCH: Good Judgment. AOx3. Normal memory, mood, and affect. HEENT -Head: NC/AT; -Nose: Normal nares. -Mouth and throat: MMM. Normal gums, muc josh, palate,. Good dentition. NECK: Supple, with no masses. CV: RRR, no m/r/g. no murmur LUNGS: CTAB, no w/r/c. ABD: Soft, NT/ND, NBS, no masses or organomegaly. + for vertical scar in the lower abdomen : N/A SKIN: + for erythema; hyperpigmentation in the lower extremity; non-tender to palpation EXT: No clubbing, cyanosis, or edema. NEURO: AAOx3 Results & Data Results & Data Vital Signs (Past 12 Hours) Vital Signs Temp Pulse Pulse Resp BP BP Pulse Ox 04/04/25 07:47 36.6 C 70 18 123/70 92 04/04/25 07:40 73 04/04/25 06:03 160 H 04/04/25 04:07 36.7 C 76 18 123/69 91 04/04/25 00:17 36.5 C 73 18 116/66 91 O2 Del Method 04/04/25 07:47 Room Air 04/04/25 07:40 04/04/25 06:03 04/04/25 04:07 Room Air 04/04/25 00:17 Room Air Laboratory Results Laboratory Results - last 72 hr 04/02/25 04/02/25 04/02/25 17:50 19:10 19:18 WBC 10.42 RBC 4.25 L Hgb 12.3 L Hct 37.8 L MCV 88.9 MCH 28.9 MCHC 32.5 RDW Std Deviation 48.0 H RDW Coeff of Jocelyn 14.7 H Plt Count 221 MPV 8.6 L Immature Gran % (Auto) 0.3 Neut % (Auto) 72.3 Lymph % (Auto) 14.3 [place] % (Auto) 10.9 Eos % (Auto) 1.9 Baso % (Auto) 0.3 Neut # (Auto) 7.53 H Lymph # (Auto) 1.49 [place] # (Auto) 1.14 H Eos # (Auto) 0.20 Baso # (Auto) 0.03 Immature Gran # (Auto) 0.03 Sodium 139 Potassium 3.7 Chloride 104 Carbon Dioxide 27 Anion Gap 8 BUN 11 Creatinine 0.88 Est Cr Clr Drug Dosing 115.9 eGFR 89.12 BUN/Creatinine Ratio 12.5 Glucose 114 H POC Glucose Calcium 9.4 Magnesium Total Bilirubin 0.8 AST 15 ALT 8 Alkaline Phosphatase 78 Troponin I High Sens 7.1 B-Natriuretic Peptide 14 Total Protein 7.4 Albumin 3.6 Globulin 3.8 Albumin/Globulin Ratio 0.9 Lipase 28 Urine Color Yellow Urine Appearance Clear Urine pH 5.5 Ur Specific [place] 1.015 Urine Protein Negative Urine Glucose (UA) Negative Urine Ketones Negative Urine Blood Trace H Urine Nitrite Negative Urine Bilirubin Negative Urine Urobilinogen Negative Ur Leukocyte Esterase Negative Urine WBC (Auto) 0-5 Urine RBC (Auto) 3-5 H U Hyaline Cast (Auto) 3-5 H U Epithel Cells (Auto) 0-2 Urine Bacteria (Auto) None Seen Urine Comment Stl C. cayetanensis PCR Stool Rotavirus A PCR Stl Adenov F PCR Stool Astrovirus (PCR) Stool Campylobacter PCR Stl C. diff Tox B Gene Stl C. diff 027-NAP1-BI Stool Cryptosporidium PCR Stl E.coli Shiga Tox PCR Stl Enterotoxigenic E PCR Stool EPEC (PCR) Stool EAEC (PCR) Stl E. histolytica PCR Stool Giardia Lamblia PCR Stool Salmonella PCR Stool Sapovirus (PCR) Stl P. shigelloides PCR Stl Shigella/EIEC PCR St Y.enterocolitica PCR Stool Vibrio (PCR) Stl Vibrio cholerae PCR Stl Norovirus GI/GII PCR 04/02/25 04/02/25 04/03/25 22:39 23:04 06:28 WBC 8.68 RBC 4.11 L Hgb 11.8 L Hct 36.8 L MCV 89.5 MCH 28.7 MCHC 32.1 RDW Std Deviation 48.2 H RDW Coeff of Jocelyn 14.9 H Plt Count 179 MPV 10.3 Immature Gran % (Auto) 0.2 Neut % (Auto) 64.6 Lymph % (Auto) 20.7 [place] % (Auto) 11.4 Eos % (Auto) 2.9 Baso % (Auto) 0.2 Neut # (Auto) 5.60 Lymph # (Auto) 1.80 [place] # (Auto) 0.99 H Eos # (Auto) 0.25 Baso # (Auto) 0.02 Immature Gran # (Auto) 0.02 Sodium 141 Potassium 3.3 L Chloride 106 Carbon Dioxide 28 Anion Gap 7 BUN 9 Creatinine 0.93 Est Cr Clr Drug Dosing 95.4 eGFR 85.10 BUN/Creatinine Ratio 9.7 L Glucose 93 POC Glucose 121 H Calcium 8.2 L Magnesium 1.6 L Total Bilirubin 0.6 AST 11 L ALT 5 L Alkaline Phosphatase 58 Troponin I High Sens B-Natriuretic Peptide Total Protein 6.1 Albumin 2.8 L Globulin 3.3 Albumin/Globulin Ratio 0.8 L Lipase Urine Color Urine Appearance Urine pH Ur Specific [place] Urine Protein Urine Glucose (UA) Urine Ketones Urine Blood Urine Nitrite Urine Bilirubin Urine Urobilinogen Ur Leukocyte Esterase Urine WBC (Auto) Urine RBC (Auto) U Hyaline Cast (Auto) U Epithel Cells (Auto) Urine Bacteria (Auto) Urine Comment Stl C. cayetanensis PCR Not Detected Stool Rotavirus A PCR Not Detected Stl Adenov F 40/41 PCR Not Detected Stool Astrovirus (PCR) Not Detected Stool Campylobacter PCR Not Detected Stl C. diff Tox B Gene Negative Cdiff Gene Stl C. diff [id number]-[id number] NEGATIVE Stool Cryptosporidium PCR Not Detected Stl E.coli Shiga Tox PCR Not Detected Stl Enterotoxigenic E PCR Not Detected Stool EPEC (PCR) Not Detected Stool EAEC (PCR) Not Detected Stl E. histolytica PCR Not Detected Stool Giardia Lamblia PCR Not Detected Stool Salmonella PCR Not Detected Stool Sapovirus (PCR) Not Detected Stl P. shigelloides PCR Not Detected Stl Shigella/EIEC PCR Not Detected St Y.enterocolitica PCR Not Detected Stool Vibrio (PCR) Not Detected Stl Vibrio cholerae PCR Not Detected Stl Norovirus GI/GII PCR Not Detected 04/03/25 04/03/25 04/03/25 08:08 12:26 16:40 WBC RBC Hgb Hct MCV MCH MCHC RDW Std Deviation RDW Coeff of Jocelyn Plt Count MPV Immature Gran % (Auto) Neut % (Auto) Lymph % (Auto) [place] % (Auto) Eos % (Auto) Baso % (Auto) Neut # (Auto) Lymph # (Auto) [place] # (Auto) Eos # (Auto) Baso # (Auto) Immature Gran # (Auto) Sodium Potassium Chloride Carbon Dioxide Anion Gap BUN Creatinine Est Cr Clr Drug Dosing eGFR BUN/Creatinine Ratio Glucose POC Glucose 89 98 101 H Calcium Magnesium Total Bilirubin AST ALT Alkaline Phosphatase Troponin I High Sens B-Natriuretic Peptide Total Protein Albumin Globulin Albumin/Globulin Ratio Lipase Urine Color Urine Appearance Urine pH Ur Specific [place] Urine Protein Urine Glucose (UA) Urine Ketones Urine Blood Urine Nitrite Urine Bilirubin Urine Urobilinogen Ur Leukocyte Esterase Urine WBC (Auto) Urine RBC (Auto) U Hyaline Cast (Auto) U Epithel Cells (Auto) Urine Bacteria (Auto) Urine Comment Stl C. cayetanensis PCR Stool Rotavirus A PCR Stl Adenov F 40/ PCR Stool Astrovirus (PCR) Stool Campylobacter PCR Stl C. diff Tox B Gene Stl C. diff [id number] Stool Cryptosporidium PCR Stl E.coli Shiga Tox PCR Stl Enterotoxigenic E PCR Stool EPEC (PCR) Stool EAEC (PCR) Stl E. histolytica PCR Stool Giardia Lamblia PCR Stool Salmonella PCR Stool Sapovirus (PCR) Stl P. shigelloides PCR Stl Shigella/EIEC PCR St Y.enterocolitica PCR Stool Vibrio (PCR) Stl Vibrio cholerae PCR Stl Norovirus GI/GII PCR 04/03/25 04/04/25 04/04/25 20:52 07:26 08:01 WBC 7.90 RBC 3.99 L Hgb 11.2 L Hct 36.1 L MCV 90.5 MCH 28.1 MCHC 31.0 L RDW Std Deviation 49.1 H RDW Coeff of Jocelyn 14.9 H Plt Count 163 MPV 9.9 Immature Gran % (Auto) Neut % (Auto) Lymph % (Auto) [place] % (Auto) Eos % (Auto) Baso % (Auto) Neut # (Auto) Lymph # (Auto) [place] # (Auto) Eos # (Auto) Baso # (Auto) Immature Gran # (Auto) Sodium 139 Potassium TNP Chloride 105 Carbon Dioxide 28 Anion Gap 6 BUN 8 Creatinine 1.06 Est Cr Clr Drug Dosing 81.7 eGFR 72.73 BUN/Creatinine Ratio 7.5 L Glucose 88 POC Glucose 103 H 90 Calcium 8.0 L Magnesium Total Bilirubin AST ALT Alkaline Phosphatase Troponin I High Sens B-Natriuretic Peptide Total Protein Albumin Globulin Albumin/Globulin Ratio Lipase Urine Color Urine Appearance Urine pH Ur Specific [place] Urine Protein Urine Glucose (UA) Urine Ketones Urine Blood Urine Nitrite Urine Bilirubin Urine Urobilinogen Ur Leukocyte Esterase Urine WBC (Auto) Urine RBC (Auto) U Hyaline Cast (Auto) U Epithel Cells (Auto) Urine Bacteria (Auto) Urine Comment Stl C. cayetanensis PCR Stool Rotavirus A PCR Stl Adenov F PCR Stool Astrovirus (PCR) Stool Campylobacter PCR Stl C. diff Tox B Gene Stl C. diff [id number]-[id number] Stool Cryptosporidium PCR Stl E.coli Shiga Tox PCR Stl Enterotoxigenic E PCR Stool EPEC (PCR) Stool EAEC (PCR) Stl E. histolytica PCR Stool Giardia Lamblia PCR Stool Salmonella PCR Stool Sapovirus (PCR) Stl P. shigelloides PCR Stl Shigella/EIEC PCR St Y.enterocolitica PCR Stool Vibrio (PCR) Stl Vibrio cholerae PCR Stl Norovirus GI/GII PCR 04/04/25 08:44 WBC RBC Hgb Hct MCV MCH MCHC RDW Std Deviation RDW Coeff of Jocelyn Plt Count MPV Immature Gran % (Auto) Neut % (Auto) Lymph % (Auto) [place] % (Auto) Eos % (Auto) Baso % (Auto) Neut # (Auto) Lymph # (Auto) [place] # (Auto) Eos # (Auto) Baso # (Auto) Immature Gran # (Auto) Sodium Potassium 3.6 Chloride Carbon Dioxide Anion Gap BUN Creatinine Est Cr Clr Drug Dosing eGFR BUN/Creatinine Ratio Glucose POC Glucose Calcium Magnesium 1.5 L Total Bilirubin AST ALT Alkaline Phosphatase Troponin I High Sens B-Natriuretic Peptide Total Protein Albumin Globulin Albumin/Globulin Ratio Lipase Urine Color Urine Appearance Urine pH Ur Specific [place] Urine Protein Urine Glucose (UA) Urine Ketones Urine Blood Urine Nitrite Urine Bilirubin Urine Urobilinogen Ur Leukocyte Esterase Urine WBC (Auto) Urine RBC (Auto) U Hyaline Cast (Auto) U Epithel Cells (Auto) Urine Bacteria (Auto) Urine Comment Stl C. cayetanensis PCR Stool Rotavirus A PCR Stl Adenov PCR Stool Astrovirus (PCR) Stool Campylobacter PCR Stl C. diff Tox B Gene Stl C. diff [id number]-NAP1-[id number] Stool Cryptosporidium PCR Stl E.coli Shiga Tox PCR Stl Enterotoxigenic E PCR Stool EPEC (PCR) Stool EAEC (PCR) Stl E. histolytica PCR Stool Giardia Lamblia PCR Stool Salmonella PCR Stool Sapovirus (PCR) Stl P. shigelloides PCR Stl Shigella/EIEC PCR St Y.enterocolitica PCR Stool Vibrio (PCR) Stl Vibrio cholerae PCR Stl Norovirus GI/GII PCR Diagnostic Findings Laboratory Results WBC 7.90 K/ul (4.8-10.8) 04/04/25 07: RBC 3.99 M/uL (4.70-6.10) L 04/04/25 07: Hgb 11.2 g/dl (14.0-18.0) L 04/04/25 07: Hct 36.1 % (42.0-52.0) L 04/04/25 07: MCV 90.5 fL (80.0-100.0) 04/04/25 07: MCH 28.1 pg (25.0-34.0) 04/04/25 07: MCHC 31.0 g/dL (32.0-36.0) L 04/04/25: RDW Std Deviation 49.1 fL (36.4-46.3) H 04/04/25 07: RDW Coeff of Jocelyn 14.9 % (11.5-14.5) H 04/04/25 07: Plt Count 163 K/uL (130-400) 04/04/25 07: MPV 9.9 fL (9.4-12.4) 04/04/25 07: Immature Gran % (Auto) 0.2 % 04/03/25 06: Neut % (Auto) 64.6 % 04/03/25 06: Lymph % (Auto) 20.7 % 04/03/25 06:28 [place] % (Auto) 11.4 % 04/03/25 06:28 Eos % (Auto) 2.9 % 04/03/25 06: Baso % (Auto) 0.2 % 04/03/25 06: Neut # (Auto) 5.60 K/uL (1.40-6.50) 04/03/25 06: Lymph # (Auto) 1.80 K/uL (1.20-3.40) 04/03/25 06: [place] # (Auto) 0.99 K/uL (0.11-0.59) H 04/03/25 06:28 Eos # (Auto) 0.25 K/uL (0.00-0.50) 04/03/25 06:28 Baso # (Auto) 0.02 K/uL (0.00-0.20) 04/03/25 06:28 Immature Gran # (Auto) 0.02 K/uL (0.01-0.20) 04/03/25 06:28 Sodium 139 mmol/L (136-145) 04/04/25 07:26 Potassium 3.6 mmol/L (3.5-5.1) 04/04/25 08:44 Chloride 105 mmol/L (98-107) 04/04/25 07:26 Carbon Dioxide 28 mmol/L (21-32) 04/04/25 07:26 Anion Gap 6 (3-11) 04/04/25 07:26 BUN 8 mg/dl (6-23) 04/04/25 07: Creatinine 1.06 mg/dl (0.6-1.4) 04/04/25 07:26 Est Cr Clr Drug Dosing 81.7 ml/min 04/04/25 07:26 eGFR 72.73 04/04/25 07:26 BUN/Creatinine Ratio 7.5 (10-20) L 04/04/25 07:26 Glucose 88 mg/dl (70-99(Fasting)) 04/04/25 07:26 POC Glucose 90 mg/dl (70-99) 04/04/25 08:01 Calcium 8.0 mg/dl (8.6-10.3) L 04/04/25 07:26 Magnesium 1.5 mg/dl (1.7-2.4) L 04/04/25 08:44 Total Bilirubin 0.6 mg/dl (0.2-1.0) 04/03/25 06:28 AST 11 U/L (13-39) L 04/03/25 06:28 ALT 5 U/L (7-52) L 04/03/25 06:28 Alkaline Phosphatase 58 U/L (34-104) 04/03/25 06:28 Troponin I High Sens 7.1 pg/ml (0-20) 04/02/25 17:50 B-Natriuretic Peptide 14 pg/ml (0-100) 04/02/25 17:50 Total Protein 6.1 gm/dl (6.0-8.3) 04/03/25 06:28 Albumin 2.8 gm/dl (3.4-5.0) L 04/03/25 06:28 Globulin 3.3 gm/dl (2.5-4.0) 04/03/25 06:28 Albumin/Globulin Ratio 0.8 (0.9-2) L 04/03/25 06:28 Lipase 28 U/L (11-82) 04/02/25 17:50 Urine Color Yellow 04/02/25 19:10 Urine Appearance Clear (Clear) 04/02/25 19:10 Urine pH 5.5 (4.5-7.5) 04/02/25 19:10 Ur Specific [place] 1.015 (1.000-1.030) 04/02/25 19:10 Urine Protein Negative (Negative) 04/02/25 19:10 Urine Glucose (UA) Negative (Negative) 04/02/25 19:10 Urine Ketones Negative (Negative) 04/02/25 19:10 Urine Blood Trace (Negative) H 04/02/25 19:10 Urine Nitrite Negative (Negative) 04/02/25 19:10 Urine Bilirubin Negative (Negative) 04/02/25 19:10 Urine Urobilinogen Negative (Negative) 04/02/25 19:10 Ur Leukocyte Esterase Negative (Negative) 04/02/25 19:10 Urine WBC (Auto) 0-5 /hpf (0-5) 04/02/25 19:10 Urine RBC (Auto) 3-5 /hpf (0-2) H 04/02/25 19:10 U Hyaline Cast (Auto) 3-5 /lpf (0-2) H 04/02/25 19:10 U Epithel Cells (Auto) 0-2 /hpf (0-2) 04/02/25 19:10 Urine Bacteria (Auto) None Seen (None Seen) 04/02/25 19:10 Urine Comment 04/02/25 19:10 Stl C. cayetanensis PCR Not Detected (NotDetected) 04/02/25 22:39 Stool Rotavirus A PCR Not Detected (NotDetected) 04/02/25 22:39 Stl Adenov F 40/41 PCR Not Detected (NotDetected) 04/02/25 22:39 Stool Astrovirus (PCR) Not Detected (NotDetected) 04/02/25 22:39 Stool Campylobacter PCR Not Detected (NotDetected) 04/02/25 22:39 Stl C. diff Tox B Gene Negative Cdiff Gene (Neg) 04/02/25 22:39 Stl C. diff [id number] NEGATIVE 04/02/25 22:39 Stool Cryptosporidium PCR Not Detected (NotDetected) 04/02/25 22:39 Stl E.coli Shiga Tox PCR Not Detected (NotDetected) 04/02/25 22:39 Stl Enterotoxigenic E PCR Not Detected (NotDetected) 04/02/25 22:39 Stool EPEC (PCR) Not Detected (NotDetected) 04/02/25 22:39 Stool EAEC (PCR) Not Detected (NotDetected) 04/02/25 22:39 Stl E. histolytica PCR Not Detected (NotDetected) 04/02/25 22:39 Stool Giardia Lamblia PCR Not Detected (NotDetected) 04/02/25 22:39 Stool Salmonella PCR Not Detected (NotDetected) 04/02/25 22:39 Stool Sapovirus (PCR) Not Detected (NotDetected) 04/02/25 22:39 Stl P. shigelloides PCR Not Detected (NotDetected) 04/02/25 22:39 Stl Shigella/EIEC PCR Not Detected (NotDetected) 04/02/25 22:39 St Y.enterocolitica PCR Not Detected (NotDetected) 04/02/25 22:39 Stool Vibrio (PCR) Not Detected (NotDetected) 04/02/25 22:39 Stl Vibrio cholerae PCR Not Detected (NotDetected) 04/02/25 22:39 Stl Norovirus GI/GII PCR Not Detected (NotDetected) 04/02/25 22:39 Impressions Chest X-Ray 04/02/25 17:26 Chest radiograph, one view History: Edema. Comparison: January 19, 2025. Findings: Mild calcified atheromatous changes thoracic aorta unchanged. Linear band density left infrahilar region unchanged. Lung volumes are prominent. Lungs are otherwise clear. Prominent pulmonary vasculature. No chelsea edema. No appreciated acute pleural disease. Impression: Stable exam with likely left base subsegmental atelectasis and or scarring. No appreciated edema. Electronically signed by Kali Ocampo 04-02-2025 6:45 PM Medications Administered Current Inpatient Medications Acetaminophen (Acetaminophen 325 Mg Tab) 650 mg PO Q4H PRN PRN Reason: Pain or Fever Stop: 05/02/25 22:59 Albuterol (Albuterol Hfa 8 Gm Inhaler) 2 puffs INH 6XD PRN PRN Reason: shortness of breath or wheezin Stop: 05/02/25 22:59 Dextrose (Dextrose 50% 50 Ml Syringe) 25 - 50 ml IV UD PRN; Protocol PRN Reason: Hypoglycemia Protocol Stop: 05/02/25 22:59 Diltiazem HCl (Diltiazem Hcl 300 Mg Capcr) 300 mg PO QAM BRANDON Stop: 05/03/25 08:59 Last Admin: 04/04/25 09:37 Dose: 300 mg Docusate Sodium (Docusate Sodium 100 Mg Cap) 100 mg PO BID PRN PRN Reason: Constipation Stop: 05/02/25 22:59 Enoxaparin Sodium (Enoxaparin Inj 40 Mg/0.4 Ml Syr) 40 mg SQ PM BRANDON Stop: 05/02/25 22:59 Last Admin: 04/03/25 21:38 Dose: 40 mg Fluticasone Furoate (Fluticasone Furoate 100mcg 14 Puffs/Inhaler) 1 puffs INH DAILY BRANDON Stop: 05/03/25 08:59 Last Admin: 04/04/25 09:37 Dose: 1 puffs Furosemide (Furosemide 40 Mg/4 Ml Vial) 40 mg IV QAM BRANDON Stop: 05/03/25 08:59 Last Admin: 04/04/25 09:39 Dose: 40 mg Glucagon (Glucagon For Inj 1 Mg Vial) 1 mg SQ UD PRN; Protocol PRN Reason: Hypoglycemia Protocol Stop: 05/02/25 22:59 Glucose (Glucose 40% Gel 15 Gm Tube) 15 - 30 gm PO UD PRN; Protocol PRN Reason: Hypoglycemia Protocol Stop: 05/02/25 22:59 Glucose (Glucose 10 Tab/Tube) 4 - 8 tab PO UD PRN; Protocol PRN Reason: Hypoglycemia Protocol Stop: 05/02/25 22:59 Hydroxyzine HCl (Hydroxyzine Hcl 10 Mg Tab) 10 mg PO Q8H BRANDON Stop: 04/06/25 14:14 Last Admin: 04/04/25 06:09 Dose: 10 mg Cefazolin Sodium (Ancef 2000mg) 2,000 mg in 15 mls @ 3.75 mls/min IV Q8H BRANDON Stop: 04/10/25 09:59 Last Admin: 04/04/25 11:19 Dose: 3.75 mls/min Magnesium Sulfate/Dextrose (Magnesium Sulfate / D5w) 1 gm in 100 mls @ 50 mls/hr IV Q2H BRANDON Stop: 04/04/25 14:14 Last Admin: 04/04/25 11:14 Dose: 50 mls/hr Insulin Aspart (Insulin Aspart Per Unit Charge) 0 units SC ACHS BRANDON Stop: 05/02/25 22:59 Last Admin: 04/04/25 09:37 Dose: Not Given Linezolid (Linezolid 600 Mg Tab) 600 mg PO BID BRANDON Stop: 04/10/25 08:59 Last Admin: 04/04/25 09:39 Dose: 600 mg Melatonin (Melatonin 3 Mg Tab) 3 mg PO HS PRN PRN Reason: Sleep Stop: 05/02/25 22:59 Miscellaneous (Carbohydrates For Hypoglycemia ) 15 - 30 gm PO UD PRN PRN Reason: Hypoglycemia Protocol Stop: 05/02/25 22:59 Ondansetron HCl (Ondansetron Inj 2 Mg/Ml 2 Ml Vial) 4 mg IV Q6H PRN PRN Reason: Nausea And Vomiting Stop: 05/02/25 22:59 Potassium Chloride (Potassium Chloride Crtab 20 Meq Tabcr) 40 meq PO TID BRANDON Stop: 05/04/25 10:24 Last Admin: 04/04/25 11:14 Dose: 40 meq Simvastatin (Simvastatin 20 Mg Tab) 20 mg PO QPM BRANDON Stop: 05/02/25 22:59 Last Admin: 04/03/25 21:38 Dose: 20 mg Umeclidinium/Vilanterol (Umeclidinium/Vilanterol 62.5/25mcg 7 Puffs/Inhaler) 1 puffs INH DAILY BRANDON Stop: 05/03/25 08:59 Last Admin: 04/04/25 09:38 Dose: 1 puffs PG Care Time/CCT Total # of Minutes Spent Total Time Spent with Patient: Total time spent is greater than 50% in coordination of care (as documented) at patient's floor/unit and/or counseling patient: Coding Level of Care Code 05904 SUB INP/OBS CARE 07/04MIN Diagnoses Cellulitis of both lower extremities L03.115; L03.116 Edema of both lower extremities due to peripheral venous insufficiency I87.2 Ambulatory dysfunction R26.2 Failure to thrive in adult R62.7 Time Spent (min) 25
[2025-04-05 06:28] LABS: Hematocrit (blood only) 35.2 % (42.0-52.0); Hemoglobin 11.1 g/dl (14.0-18.0); Mean Corpuscular Hemoglobin 28.1 pg (25.0-34.0); Mean Corpuscular Volume 89.1 fL (80.0-100.0); Platelet Count 182 K/uL (130-400); RDW Standard Deviation 48.3 fL (36.4-46.3); Red Blood Count 3.95 M/uL (4.70-6.10); White Blood Count 8.79 K/ul (4.8-10.8)
[2025-04-05 07:18] LABS: Anion Gap 8.0 (3-11); Blood Urea Nitrogen 9.0 mg/dl (6-23); Calcium 8.1 mg/dl (8.6-10.3); Carbon Dioxide 26.0 mmol/L (21-32); Chloride 103.0 mmol/L (98-107); Creatinine Clr Calc Pharmacy 73.1 ml/min; Glucose 99.0 mg/dl (70-99(Fasting)); Magnesium 1.8 mg/dl (1.7-2.4); Potassium 4.1 mmol/L (3.5-5.1); Sodium 137.0 mmol/L (136-145)
--- NOTE | 2025-04-05 10:17 | Hospitalist Progress Note ---
Date of Service April 05, 2025 Assessment & Plan (1) Cellulitis of both lower extremities: (2) Edema of both lower extremities due to peripheral venous insufficiency: (3) Ambulatory dysfunction: (4) Failure to thrive in adult: Plan Patient is a 75-year-old with past medical history of A-fib, chronic venous insufficiency, COPD, JOSH, BPH, HTN, GERD, HLD, T2DM. patient presented via EMS due to 2 days of diarrhea and bilateral lower extremity edema and erythema. He is being admitted for bilateral lower extremity cellulitis requiring IV antibiotics. #BL LE cellulitis - Recurrent. Non-septic at time of admission - no leukocytosis, VSS. he's on cefazolin. and linezolid he still has significant erythema, discharge and need another 48-72 hours of IV antibiotics wound care will need evaluation him low dose lasix today - daily dressing changes blood culture from 04/02 negative we discussed about benefit of compressioni stocking hypokalemia, Kcl 40mg TABLET BID #chronic venous insufficiency - Eval by vascular during recent admission - low concern for arterial insufficiency. - on lasix 20mg PO daily at home potentially switch to bumex upon discharge - given lasix 40 mg IV x 1 on admission, continue 40 mg IV daily - increasing his KCL tablet supplementation - promote leg elevation #ambulatory dysfunction - lives in recliner at baseline. Granddaughter provides 31/12 care. - PT/OT consulted he's declined placement to [facility] #diarrhea - 1-2 episodes per day x2 days. LFTs WNL, no leukocytosis. - stool cultures ordered - defer AP CT given mild symptoms and abdomen nontender - if clinically worsens, could consider no further diarrhea; abdomen non-tender to palpation #a fib - Sinus rhythm on admission. Electrolytes stable. - No anticoagulation at baseline - continue diltiazem #T2DM - hold metformin, SSI while inpatient. #COPD - continue home inhalers on room air; stable, no wheezing #JOSH - noncompliant with home CPAP, defer. VTE ppx: Lovenox daily Dispo: med/tele Admission and Anticipated Discharge Date Admission Date: April 02, 2025 Subjective he still has significant erythema and edema today I will expect another 48-72 hours of IV cefazolin and linezolid low dose lasix today; wound care evaluation for dressing change he's home bound at baseline and grand-daughter, live with her and is her medical provider we discussed that he likely need home services for wound care 1-2 times per week he is mostly bedbound and no longer leave his house he been declining screening colonoscopy Physical Exam Physical Exam: VITALS: Reviewed. WEIGHT/BMI reviewed. GEN: obese; non-toxic appearing. PSYCH: Good Judgment. AOx3. Normal memory, mood, and affect. HEENT -Head: NC/AT; -Mouth and throat: MMM. Normal gums, muc josh, palate,. Good dentition. NECK: Supple, with no masses. CV: RRR, no m/r/g. LUNGS: CTAB, no w/r/c. ABD: Soft, NT/ND, NBS, no masses or organomegaly. SKIN: + for erythema; scalp in both lower extremity; no crepitus noted MSK: + for edema NEURO: AAOx3 Results & Data Results & Data Vital Signs (Past 12 Hours) Vital Signs Temp Pulse Resp BP BP Pulse Ox O2 Del Method 04/05/25 07:48 36.6 C 67 18 104/57 L 93 Room Air 04/05/25 04:14 36.7 C 77 20 107/66 90 Room Air 04/04/25 23:28 36.8 C 76 20 102/63 90 Room Air Laboratory Results Laboratory Results - last 72 hr 04/02/25 04/02/25 04/02/25 17:50 19:10 19:18 WBC 10.42 RBC 4.25 L Hgb 12.3 L Hct 37.8 L MCV 88.9 MCH 28.9 MCHC 32.5 RDW Std Deviation 48.0 H RDW Coeff of Jocelyn 14.7 H Plt Count 221 MPV 8.6 L Immature Gran % (Auto) 0.3 Neut % (Auto) 72.3 Lymph % (Auto) 14.3 [place] % (Auto) 10.9 Eos % (Auto) 1.9 Baso % (Auto) 0.3 Neut # (Auto) 7.53 H Lymph # (Auto) 1.49 [place] # (Auto) 1.14 H Eos # (Auto) 0.20 Baso # (Auto) 0.03 Immature Gran # (Auto) 0.03 Sodium 139 Potassium 3.7 Chloride 104 Carbon Dioxide 27 Anion Gap 8 BUN 11 Creatinine 0.88 Est Cr Clr Drug Dosing 115.9 eGFR 89.12 BUN/Creatinine Ratio 12.5 Glucose 114 H POC Glucose Calcium 9.4 Magnesium Total Bilirubin 0.8 AST 15 ALT 8 Alkaline Phosphatase 78 Troponin I High Sens 7.1 B-Natriuretic Peptide 14 Total Protein 7.4 Albumin 3.6 Globulin 3.8 Albumin/Globulin Ratio 0.9 Lipase 28 Urine Color Yellow Urine Appearance Clear Urine pH 5.5 Ur Specific [place] 1.015 Urine Protein Negative Urine Glucose (UA) Negative Urine Ketones Negative Urine Blood Trace H Urine Nitrite Negative Urine Bilirubin Negative Urine Urobilinogen Negative Ur Leukocyte Esterase Negative Urine WBC (Auto) 0-5 Urine RBC (Auto) 3-5 H U Hyaline Cast (Auto) 3-5 H U Epithel Cells (Auto) 0-2 Urine Bacteria (Auto) None Seen Urine Comment Stl C. cayetanensis PCR Stool Rotavirus A PCR Stl Adenov F PCR Stool Astrovirus (PCR) Stool Campylobacter PCR Stl C. diff Tox B Gene Stl C. diff [id number]-[id number] Stool Cryptosporidium PCR Stl E.coli Shiga Tox PCR Stl Enterotoxigenic E PCR Stool EPEC (PCR) Stool EAEC (PCR) Stl E. histolytica PCR Stool Giardia Lamblia PCR Stool Salmonella PCR Stool Sapovirus (PCR) Stl P. shigelloides PCR Stl Shigella/EIEC PCR St Y.enterocolitica PCR Stool Vibrio (PCR) Stl Vibrio cholerae PCR Stl Norovirus GI/GII PCR 04/02/25 04/02/25 04/03/25 22:39 23:04 06:28 WBC 8.68 RBC 4.11 L Hgb 11.8 L Hct 36.8 L MCV 89.5 MCH 28.7 MCHC 32.1 RDW Std Deviation 48.2 H RDW Coeff of Jocelyn 14.9 H Plt Count 179 MPV 10.3 Immature Gran % (Auto) 0.2 Neut % (Auto) 64.6 Lymph % (Auto) 20.7 [place] % (Auto) 11.4 Eos % (Auto) 2.9 Baso % (Auto) 0.2 Neut # (Auto) 5.60 Lymph # (Auto) 1.80 [place] # (Auto) 0.99 H Eos # (Auto) 0.25 Baso # (Auto) 0.02 Immature Gran # (Auto) 0.02 Sodium 141 Potassium 3.3 L Chloride 106 Carbon Dioxide 28 Anion Gap 7 BUN 9 Creatinine 0.93 Est Cr Clr Drug Dosing 95.4 eGFR 85.10 BUN/Creatinine Ratio 9.7 L Glucose 93 POC Glucose 121 H Calcium 8.2 L Magnesium 1.6 L Total Bilirubin 0.6 AST 11 L ALT 5 L Alkaline Phosphatase 58 Troponin I High Sens B-Natriuretic Peptide Total Protein 6.1 Albumin 2.8 L Globulin 3.3 Albumin/Globulin Ratio 0.8 L Lipase Urine Color Urine Appearance Urine pH Ur Specific [place] Urine Protein Urine Glucose (UA) Urine Ketones Urine Blood Urine Nitrite Urine Bilirubin Urine Urobilinogen Ur Leukocyte Esterase Urine WBC (Auto) Urine RBC (Auto) U Hyaline Cast (Auto) U Epithel Cells (Auto) Urine Bacteria (Auto) Urine Comment Stl C. cayetanensis PCR Not Detected Stool Rotavirus A PCR Not Detected Stl Adenov F 40/41 PCR Not Detected Stool Astrovirus (PCR) Not Detected Stool Campylobacter PCR Not Detected Stl C. diff Tox B Gene Negative Cdiff Gene Stl C. diff [id number] NEGATIVE Stool Cryptosporidium PCR Not Detected Stl E.coli Shiga Tox PCR Not Detected Stl Enterotoxigenic E PCR Not Detected Stool EPEC (PCR) Not Detected Stool EAEC (PCR) Not Detected Stl E. histolytica PCR Not Detected Stool Giardia Lamblia PCR Not Detected Stool Salmonella PCR Not Detected Stool Sapovirus (PCR) Not Detected Stl P. shigelloides PCR Not Detected Stl Shigella/EIEC PCR Not Detected St Y.enterocolitica PCR Not Detected Stool Vibrio (PCR) Not Detected Stl Vibrio cholerae PCR Not Detected Stl Norovirus GI/GII PCR Not Detected 04/03/25 04/03/25 04/03/25 08:08 12:26 16:40 WBC RBC Hgb Hct MCV MCH MCHC RDW Std Deviation RDW Coeff of Jocelyn Plt Count MPV Immature Gran % (Auto) Neut % (Auto) Lymph % (Auto) [place] % (Auto) Eos % (Auto) Baso % (Auto) Neut # (Auto) Lymph # (Auto) [place] # (Auto) Eos # (Auto) Baso # (Auto) Immature Gran # (Auto) Sodium Potassium Chloride Carbon Dioxide Anion Gap BUN Creatinine Est Cr Clr Drug Dosing eGFR BUN/Creatinine Ratio Glucose POC Glucose 89 98 101 H Calcium Magnesium Total Bilirubin AST ALT Alkaline Phosphatase Troponin I High Sens B-Natriuretic Peptide Total Protein Albumin Globulin Albumin/Globulin Ratio Lipase Urine Color Urine Appearance Urine pH Ur Specific [place] Urine Protein Urine Glucose (UA) Urine Ketones Urine Blood Urine Nitrite Urine Bilirubin Urine Urobilinogen Ur Leukocyte Esterase Urine WBC (Auto) Urine RBC (Auto) U Hyaline Cast (Auto) U Epithel Cells (Auto) Urine Bacteria (Auto) Urine Comment Stl C. cayetanensis PCR Stool Rotavirus A PCR Stl Adenov F 40/41 PCR Stool Astrovirus (PCR) Stool Campylobacter PCR Stl C. diff Tox B Gene Stl C. diff [id number] Stool Cryptosporidium PCR Stl E.coli Shiga Tox PCR Stl Enterotoxigenic E PCR Stool EPEC (PCR) Stool EAEC (PCR) Stl E. histolytica PCR Stool Giardia Lamblia PCR Stool Salmonella PCR Stool Sapovirus (PCR) Stl P. shigelloides PCR Stl Shigella/EIEC PCR St Y.enterocolitica PCR Stool Vibrio (PCR) Stl Vibrio cholerae PCR Stl Norovirus GI/GII PCR 04/03/25 04/04/25 04/04/25 20:52 07:26 08:01 WBC 7.90 RBC 3.99 L Hgb 11.2 L Hct 36.1 L MCV 90.5 MCH 28.1 MCHC 31.0 L RDW Std Deviation 49.1 H RDW Coeff of Jocelyn 14.9 H Plt Count 163 MPV 9.9 Immature Gran % (Auto) Neut % (Auto) Lymph % (Auto) [place] % (Auto) Eos % (Auto) Baso % (Auto) Neut # (Auto) Lymph # (Auto) [place] # (Auto) Eos # (Auto) Baso # (Auto) Immature Gran # (Auto) Sodium 139 Potassium TNP Chloride 105 Carbon Dioxide 28 Anion Gap 6 BUN 8 Creatinine 1.06 Est Cr Clr Drug Dosing 81.7 eGFR 72.73 BUN/Creatinine Ratio 7.5 L Glucose 88 POC Glucose 103 H 90 Calcium 8.0 L Magnesium Total Bilirubin AST ALT Alkaline Phosphatase Troponin I High Sens B-Natriuretic Peptide Total Protein Albumin Globulin Albumin/Globulin Ratio Lipase Urine Color Urine Appearance Urine pH Ur Specific [place] Urine Protein Urine Glucose (UA) Urine Ketones Urine Blood Urine Nitrite Urine Bilirubin Urine Urobilinogen Ur Leukocyte Esterase Urine WBC (Auto) Urine RBC (Auto) U Hyaline Cast (Auto) U Epithel Cells (Auto) Urine Bacteria (Auto) Urine Comment Stl C. cayetanensis PCR Stool Rotavirus A PCR Stl Adenov F 40/ PCR Stool Astrovirus (PCR) Stool Campylobacter PCR Stl C. diff Tox B Gene Stl C. diff [id number] Stool Cryptosporidium PCR Stl E.coli Shiga Tox PCR Stl Enterotoxigenic E PCR Stool EPEC (PCR) Stool EAEC (PCR) Stl E. histolytica PCR Stool Giardia Lamblia PCR Stool Salmonella PCR Stool Sapovirus (PCR) Stl P. shigelloides PCR Stl Shigella/EIEC PCR St Y.enterocolitica PCR Stool Vibrio (PCR) Stl Vibrio cholerae PCR Stl Norovirus GI/GII PCR 04/04/25 04/04/25 04/04/25 08:44 12:04 16:49 WBC RBC Hgb Hct MCV MCH MCHC RDW Std Deviation RDW Coeff of Jocelyn Plt Count MPV Immature Gran % (Auto) Neut % (Auto) Lymph % (Auto) [place] % (Auto) Eos % (Auto) Baso % (Auto) Neut # (Auto) Lymph # (Auto) [place] # (Auto) Eos # (Auto) Baso # (Auto) Immature Gran # (Auto) Sodium Potassium 3.6 Chloride Carbon Dioxide Anion Gap BUN Creatinine Est Cr Clr Drug Dosing eGFR BUN/Creatinine Ratio Glucose POC Glucose 107 H 105 H Calcium Magnesium 1.5 L Total Bilirubin AST ALT Alkaline Phosphatase Troponin I High Sens B-Natriuretic Peptide Total Protein Albumin Globulin Albumin/Globulin Ratio Lipase Urine Color Urine Appearance Urine pH Ur Specific [place] Urine Protein Urine Glucose (UA) Urine Ketones Urine Blood Urine Nitrite Urine Bilirubin Urine Urobilinogen Ur Leukocyte Esterase Urine WBC (Auto) Urine RBC (Auto) U Hyaline Cast (Auto) U Epithel Cells (Auto) Urine Bacteria (Auto) Urine Comment Stl C. cayetanensis PCR Stool Rotavirus A PCR Stl Adenov F 40/ PCR Stool Astrovirus (PCR) Stool Campylobacter PCR Stl C. diff Tox B Gene Stl C. diff [id number] Stool Cryptosporidium PCR Stl E.coli Shiga Tox PCR Stl Enterotoxigenic E PCR Stool EPEC (PCR) Stool EAEC (PCR) Stl E. histolytica PCR Stool Giardia Lamblia PCR Stool Salmonella PCR Stool Sapovirus (PCR) Stl P. shigelloides PCR Stl Shigella/EIEC PCR St Y.enterocolitica PCR Stool Vibrio (PCR) Stl Vibrio cholerae PCR Stl Norovirus GI/GII PCR 04/04/25 04/05/25 04/05/25 20:27 06:03 07:59 WBC 8.79 RBC 3.95 L Hgb 11.1 L Hct 35.2 L MCV 89.1 MCH 28.1 MCHC 31.5 L RDW Std Deviation 48.3 H RDW Coeff of Jocelyn 14.7 H Plt Count 182 MPV 9.1 L Immature Gran % (Auto) Neut % (Auto) Lymph % (Auto) [place] % (Auto) Eos % (Auto) Baso % (Auto) Neut # (Auto) Lymph # (Auto) [place] # (Auto) Eos # (Auto) Baso # (Auto) Immature Gran # (Auto) Sodium 137 Potassium 4.1 Chloride 103 Carbon Dioxide 26 Anion Gap 8 BUN 9 Creatinine 1.17 Est Cr Clr Drug Dosing 73.1 eGFR 64.61 BUN/Creatinine Ratio 7.7 L Glucose 99 POC Glucose 116 H 93 Calcium 8.1 L Magnesium 1.8 Total Bilirubin AST ALT Alkaline Phosphatase Troponin I High Sens B-Natriuretic Peptide Total Protein Albumin Globulin Albumin/Globulin Ratio Lipase Urine Color Urine Appearance Urine pH Ur Specific [place] Urine Protein Urine Glucose (UA) Urine Ketones Urine Blood Urine Nitrite Urine Bilirubin Urine Urobilinogen Ur Leukocyte Esterase Urine WBC (Auto) Urine RBC (Auto) U Hyaline Cast (Auto) U Epithel Cells (Auto) Urine Bacteria (Auto) Urine Comment Stl C. cayetanensis PCR Stool Rotavirus A PCR Stl Adenov F 40/41 PCR Stool Astrovirus (PCR) Stool Campylobacter PCR Stl C. diff Tox B Gene Stl C. diff [id number] Stool Cryptosporidium PCR Stl E.coli Shiga Tox PCR Stl Enterotoxigenic E PCR Stool EPEC (PCR) Stool EAEC (PCR) Stl E. histolytica PCR Stool Giardia Lamblia PCR Stool Salmonella PCR Stool Sapovirus (PCR) Stl P. shigelloides PCR Stl Shigella/EIEC PCR St Y.enterocolitica PCR Stool Vibrio (PCR) Stl Vibrio cholerae PCR Stl Norovirus GI/GII PCR Medications Administered Current Inpatient Medications Acetaminophen (Acetaminophen 325 Mg Tab) 650 mg PO Q4H PRN PRN Reason: Pain or Fever Stop: 05/02/25 22:59 Albuterol (Albuterol Hfa 8 Gm Inhaler) 2 puffs INH 6XD PRN PRN Reason: shortness of breath or wheezin Stop: 05/02/25 22:59 Dextrose (Dextrose 50% 50 Ml Syringe) 25 - 50 ml IV UD PRN; Protocol PRN Reason: Hypoglycemia Protocol Stop: 05/02/25 22:59 Diltiazem HCl (Diltiazem Hcl 300 Mg Capcr) 300 mg PO QAM BRANDON Stop: 05/03/25 08:59 Last Admin: 04/05/25 08:49 Dose: 300 mg Docusate Sodium (Docusate Sodium 100 Mg Cap) 100 mg PO BID PRN PRN Reason: Constipation Stop: 05/02/25 22:59 Enoxaparin Sodium (Enoxaparin Inj 40 Mg/0.4 Ml Syr) 40 mg SQ PM BRANDON Stop: 05/02/25 22:59 Last Admin: 04/04/25 20:24 Dose: 40 mg Fluticasone Furoate (Fluticasone Furoate 100mcg 14 Puffs/Inhaler) 1 puffs INH DAILY BRANDON Stop: 05/03/25 08:59 Last Admin: 04/05/25 08:50 Dose: 1 puffs Furosemide (Furosemide 40 Mg/4 Ml Vial) 40 mg IV QAM BRANDON Stop: 05/03/25 08:59 Last Admin: 04/05/25 08:49 Dose: 40 mg Glucagon (Glucagon For Inj 1 Mg Vial) 1 mg SQ UD PRN; Protocol PRN Reason: Hypoglycemia Protocol Stop: 05/02/25 22:59 Glucose (Glucose 40% Gel 15 Gm Tube) 15 - 30 gm PO UD PRN; Protocol PRN Reason: Hypoglycemia Protocol Stop: 05/02/25 22:59 Glucose (Glucose 10 Tab/Tube) 4 - 8 tab PO UD PRN; Protocol PRN Reason: Hypoglycemia Protocol Stop: 05/02/25 22:59 Hydroxyzine HCl (Hydroxyzine Hcl 10 Mg Tab) 10 mg PO Q8H BRANDON Stop: 04/06/25 14:14 Last Admin: 04/05/25 05:37 Dose: 10 mg Cefazolin Sodium (Ancef 2000mg) 2,000 mg in 15 mls @ 3.75 mls/min IV Q8H BRANDON Stop: 04/10/25 09:59 Last Admin: 04/05/25 04:08 Dose: 3.75 mls/min Insulin Aspart (Insulin Aspart Per Unit Charge) 0 units SC ACHS BRANDON Stop: 05/02/25 22:59 Last Admin: 04/05/25 08:41 Dose: Not Given Linezolid (Linezolid 600 Mg Tab) 600 mg PO BID BRANDON Stop: 04/10/25 08:59 Last Admin: 04/05/25 08:49 Dose: 600 mg Melatonin (Melatonin 3 Mg Tab) 3 mg PO HS PRN PRN Reason: Sleep Stop: 05/02/25 22:59 Miscellaneous (Carbohydrates For Hypoglycemia ) 15 - 30 gm PO UD PRN PRN Reason: Hypoglycemia Protocol Stop: 05/02/25 22:59 Ondansetron HCl (Ondansetron Inj 2 Mg/Ml 2 Ml Vial) 4 mg IV Q6H PRN PRN Reason: Nausea And Vomiting Stop: 05/02/25 22:59 Potassium Chloride (Potassium Chloride Crtab 20 Meq Tabcr) 40 meq PO TID BRANDON Stop: 05/04/25 10:24 Last Admin: 04/05/25 08:53 Dose: 40 meq Simvastatin (Simvastatin 20 Mg Tab) 20 mg PO QPM BRANDON Stop: 05/02/25 22:59 Last Admin: 04/04/25 20:24 Dose: 20 mg Umeclidinium/Vilanterol (Umeclidinium/Vilanterol 62.5/25mcg 7 Puffs/Inhaler) 1 puffs INH DAILY BRANDON Stop: 05/03/25 08:59 Last Admin: 04/05/25 08:50 Dose: 1 puffs PG Care Time/CCT Total # of Minutes Spent Total Time Spent with Patient: Total time spent is greater than 50% in coordination of care (as documented) at patient's floor/unit and/or counseling patient: Coding Level of Care Code 29837 SUB INP/OBS CARE 07/04MIN Diagnoses Cellulitis of both lower extremities L03.115; L03.116 Edema of both lower extremities due to peripheral venous insufficiency I87.2 Ambulatory dysfunction R26.2 Failure to thrive in adult R62.7 Time Spent (min) 20
[2025-04-06] MEDS: VANCOMYCIN HCL 250 MG CAP PO SCH (00:40)
[2025-04-06 01:50] LABS: Cdiff Toxin B Gene (2yr or >) Negative Cdiff Gene (Neg)
[2025-04-06 07:34] LABS: Hematocrit (blood only) 37.0 % (42.0-52.0); Hemoglobin 11.4 g/dl (14.0-18.0); Mean Corpuscular Hemoglobin 27.4 pg (25.0-34.0); Mean Corpuscular Volume 88.9 fL (80.0-100.0); Platelet Count 206 K/uL (130-400); RDW Standard Deviation 49.1 fL (36.4-46.3); Red Blood Count 4.16 M/uL (4.70-6.10); White Blood Count 9.22 K/ul (4.8-10.8)
[2025-04-06 07:53] LABS: Anion Gap 6.0 (3-11); Blood Urea Nitrogen 8.0 mg/dl (6-23); Calcium 8.4 mg/dl (8.6-10.3); Carbon Dioxide 26.0 mmol/L (21-32); Chloride 105.0 mmol/L (98-107); Creatinine Clr Calc Pharmacy 74.3 ml/min; Glucose 103.0 mg/dl (70-99(Fasting)); Magnesium 1.8 mg/dl (1.7-2.4); Potassium 4.7 mmol/L (3.5-5.1); Sodium 137.0 mmol/L (136-145)
--- NOTE | 2025-04-06 14:28 | Hospitalist Progress Note ---
Date of Service April 06, 2025 Assessment & Plan (1) Cellulitis of both lower extremities: (2) Edema of both lower extremities due to peripheral venous insufficiency: (3) Ambulatory dysfunction: (4) Failure to thrive in adult: Plan Patient is a 75-year-old with past medical history of A-fib, chronic venous insufficiency, COPD, JOSH, BPH, HTN, GERD, HLD, T2DM. patient presented via EMS due to 2 days of diarrhea and bilateral lower extremity edema and erythema. He is being admitted for bilateral lower extremity cellulitis requiring IV antibiotics. overall plan expect dc no later than 10-14 days total of oral antibiotics c/w IV lasix while he's here he's need compression stocking upon discharge f/u on blood culture #BL LE cellulitis - Recurrent he's on cefazolin. and linezolid he still has significant erythema, discharge and need another 48-72 hours of IV antibiotics wound care will need evaluation him low dose lasix today - daily dressing changes blood culture from 04/02 negative we discussed about benefit of compressioni stocking hypokalemia, Kcl 40mg TABLET BID #chronic venous insufficiency - Eval by vascular during recent admission - low concern for arterial insufficiency. - on lasix 20mg PO daily at home potentially switch to bumex upon discharge - given lasix 40 mg IV x 1 on admission, continue 40 mg IV daily - increasing his KCL tablet supplementation - promote leg elevation #ambulatory dysfunction - lives in recliner at baseline. Granddaughter provides / care. - PT/OT consulted he's declined placement to [facility] #diarrhea - 1-2 episodes per day x2 days. LFTs WNL, no leukocytosis. - stool cultures ordered - defer AP CT given mild symptoms and abdomen nontender - if clinically worsens, could consider no further diarrhea; abdomen non-tender to palpation #a fib - Sinus rhythm on admission. Electrolytes stable. - No anticoagulation at baseline - continue diltiazem #T2DM - hold metformin, SSI while inpatient. #COPD - continue home inhalers on room air; stable, no wheezing #JOSH - noncompliant with home CPAP, defer. VTE ppx: Lovenox daily Dispo: med/tele Admission and Anticipated Discharge Date Admission Date: April 02, 2025 Subjective he was having diarrhea episode last night sending for C. difficile and started vancomycin he's on IV cefazolin and his erythema is still there but improving leg is non-tender to palpation will provide another dose of IV lasix today to address for lymphedema Physical Exam Physical Exam: VITALS: Reviewed. WEIGHT/BMI reviewed. GEN: Healthy appearing, well-developed, NAD. HEENT -Head: NC/AT; -Mouth and throat: MMM. Normal gums, muc josh, palate,. Good dentition. NECK: Supple, with no masses. CV: RRR, no m/r/g. LUNGS: CTAB, no w/r/c. ABD: Soft, NT/ND, NBS, no masses or organomegaly. SKIN: + for erythema; + for scalp; non-tender to palpitation EXT: No clubbing, cyanosis, or edema. NEURO: AAOx3. Results & Data Results & Data Vital Signs (Past 12 Hours) Vital Signs Temp Pulse Pulse Pulse Resp BP BP 04/06/25 14:14 36.6 C 67 67 14 124/63 04/06/25 08:35 04/06/25 06:45 79 04/06/25 02:32 36.7 C 72 18 116/70 Pulse Ox O2 Del Method 04/06/25 14:14 95 Room Air 04/06/25 08:35 Room Air 04/06/25 06:45 04/06/25 02:32 93 Room Air Laboratory Results Laboratory Results - last 72 hr 04/03/25 04/03/25 04/04/25 16:40 20:52 07:26 WBC 7.90 RBC 3.99 L Hgb 11.2 L Hct 36.1 L MCV 90.5 MCH 28.1 MCHC 31.0 L RDW Std Deviation 49.1 H RDW Coeff of Jocelyn 14.9 H Plt Count 163 MPV 9.9 Sodium 139 Potassium TNP Chloride 105 Carbon Dioxide 28 Anion Gap 6 BUN 8 Creatinine 1.06 Est Cr Clr Drug Dosing 81.7 eGFR 72.73 BUN/Creatinine Ratio 7.5 L Glucose 88 POC Glucose 101 H 103 H Calcium 8.0 L Magnesium Stl C. diff Tox B Gene Stl C. diff [id number] 04/04/25 04/04/25 04/04/25 08:01 08:44 12:04 WBC RBC Hgb Hct MCV MCH MCHC RDW Std Deviation RDW Coeff of Jocelyn Plt Count MPV Sodium Potassium 3.6 Chloride Carbon Dioxide Anion Gap BUN Creatinine Est Cr Clr Drug Dosing eGFR BUN/Creatinine Ratio Glucose POC Glucose 90 107 H Calcium Magnesium 1.5 L Stl C. diff Tox B Gene Stl C. diff [id number] 04/04/25 04/04/25 04/05/25 16:49 20:27 06:03 WBC 8.79 RBC 3.95 L Hgb 11.1 L Hct 35.2 L MCV 89.1 MCH 28.1 MCHC 31.5 L RDW Std Deviation 48.3 H RDW Coeff of Jocelyn 14.7 H Plt Count 182 MPV 9.1 L Sodium 137 Potassium 4.1 Chloride 103 Carbon Dioxide 26 Anion Gap 8 BUN 9 Creatinine 1.17 Est Cr Clr Drug Dosing 73.1 eGFR 64.61 BUN/Creatinine Ratio 7.7 L Glucose 99 POC Glucose 105 H 116 H Calcium 8.1 L Magnesium 1.8 Stl C. diff Tox B Gene Stl C. diff -NAP1-BI 04/05/25 04/05/25 04/05/25 07:59 12:02 17:02 WBC RBC Hgb Hct MCV MCH MCHC RDW Std Deviation RDW Coeff of Jocelyn Plt Count MPV Sodium Potassium Chloride Carbon Dioxide Anion Gap BUN Creatinine Est Cr Clr Drug Dosing eGFR BUN/Creatinine Ratio Glucose POC Glucose 93 104 H 122 H Calcium Magnesium Stl C. diff Tox B Gene Stl C. diff -NAP1-BI 04/05/25 04/06/25 04/06/25 20:22 06:57 07:28 WBC 9.22 RBC 4.16 L Hgb 11.4 L Hct 37.0 L MCV 88.9 MCH 27.4 MCHC 30.8 L RDW Std Deviation 49.1 H RDW Coeff of Jocelyn 15.0 H Plt Count 206 MPV 8.9 L Sodium 137 Potassium 4.7 Chloride 105 Carbon Dioxide 26 Anion Gap 6 BUN 8 Creatinine 1.16 Est Cr Clr Drug Dosing 74.3 eGFR 65.28 BUN/Creatinine Ratio 6.9 L Glucose 103 H POC Glucose 127 H 105 H Calcium 8.4 L Magnesium 1.8 Stl C. diff Tox B Gene Stl C. diff [id number] 04/06/25 04/06/25 11:24 Unknown WBC RBC Hgb Hct MCV MCH MCHC RDW Std Deviation RDW Coeff of Jocelyn Plt Count MPV Sodium Potassium Chloride Carbon Dioxide Anion Gap BUN Creatinine Est Cr Clr Drug Dosing eGFR BUN/Creatinine Ratio Glucose POC Glucose 92 Calcium Magnesium Stl C. diff Tox B Gene Negative Cdiff Gene Stl C. diff [id number] NEGATIVE Diagnostic Findings Laboratory Results WBC 9.22 K/ul (4.8-10.8) 04/06/25 06:57 RBC 4.16 M/uL (4.70-6.10) L 04/06/25 06:57 Hgb 11.4 g/dl (14.0-18.0) L 04/06/25 06:57 Hct 37.0 % (42.0-52.0) L 04/06/25 06:57 MCV 88.9 fL (80.0-100.0) 04/06/25 06:57 MCH 27.4 pg (25.0-34.0) 04/06/25 06:57 MCHC 30.8 g/dL (32.0-36.0) L 04/06/25 06:57 RDW Std Deviation 49.1 fL (36.4-46.3) H 04/06/25 06:57 RDW Coeff of Jocelyn 15.0 % (11.5-14.5) H 04/06/25 06:57 Plt Count 206 K/uL (130-400) 04/06/25 06:57 MPV 8.9 fL (9.4-12.4) L 04/06/25 06:57 Immature Gran % (Auto) 0.2 % 04/03/25 06: Neut % (Auto) 64.6 % 04/03/25 06:28 Lymph % (Auto) 20.7 % 04/03/25 06:28 [place] % (Auto) 11.4 % 04/03/25 06:28 Eos % (Auto) 2.9 % 04/03/25 06:28 Baso % (Auto) 0.2 % 04/03/25 06:28 Neut # (Auto) 5.60 K/uL (1.40-6.50) 04/03/25 06:28 Lymph # (Auto) 1.80 K/uL (1.20-3.40) 04/03/25 06:28 [place] # (Auto) 0.99 K/uL (0.11-0.59) H 04/03/25 06:28 Eos # (Auto) 0.25 K/uL (0.00-0.50) 04/03/25 06:28 Baso # (Auto) 0.02 K/uL (0.00-0.20) 04/03/25 06:28 Immature Gran # (Auto) 0.02 K/uL (0.01-0.20) 04/03/25 06:28 Sodium 137 mmol/L (136-145) 04/06/25 06:57 Potassium 4.7 mmol/L (3.5-5.1) 04/06/25 06:57 Chloride 105 mmol/L (98-107) 04/06/25 06:57 Carbon Dioxide 26 mmol/L (21-32) 04/06/25 06:57 Anion Gap 6 (3-11) 04/06/25 06:57 BUN 8 mg/dl (6-23) 04/06/25 06:57 Creatinine 1.16 mg/dl (0.6-1.4) 04/06/25 06:57 Est Cr Clr Drug Dosing 74.3 ml/min 04/06/25 06:57 eGFR 65.28 04/06/25 06:57 BUN/Creatinine Ratio 6.9 (10-20) L 04/06/25 06:57 Glucose 103 mg/dl (70-99(Fasting)) H 04/06/25 06:57 POC Glucose 92 mg/dl (70-99) 04/06/25 11:24 Calcium 8.4 mg/dl (8.6-10.3) L 04/06/25 06:57 Magnesium 1.8 mg/dl (1.7-2.4) 04/06/25 06:57 Total Bilirubin 0.6 mg/dl (0.2-1.0) 04/03/25 06:28 AST 11 U/L (13-39) L 04/03/25 06:28 ALT 5 U/L (7-52) L 04/03/25 06:28 Alkaline Phosphatase 58 U/L (34-104) 04/03/25 06:28 Troponin I High Sens 7.1 pg/ml (0-20) 04/02/25 17:50 B-Natriuretic Peptide 14 pg/ml (0-100) 04/02/25 17:50 Total Protein 6.1 gm/dl (6.0-8.3) 04/03/25 06:28 Albumin 2.8 gm/dl (3.4-5.0) L 04/03/25 06:28 Globulin 3.3 gm/dl (2.5-4.0) 04/03/25 06:28 Albumin/Globulin Ratio 0.8 (0.9-2) L 04/03/25 06:28 Lipase 28 U/L (11-82) 04/02/25 17:50 Urine Color Yellow 04/02/25 19:10 Urine Appearance Clear (Clear) 04/02/25 19:10 Urine pH 5.5 (4.5-7.5) 04/02/25 19:10 Ur Specific [place] 1.015 (1.000-1.030) 04/02/25 19:10 Urine Protein Negative (Negative) 04/02/25 19:10 Urine Glucose (UA) Negative (Negative) 04/02/25 19:10 Urine Ketones Negative (Negative) 04/02/25 19:10 Urine Blood Trace (Negative) H 04/02/25 19:10 Urine Nitrite Negative (Negative) 04/02/25 19:10 Urine Bilirubin Negative (Negative) 04/02/25 19:10 Urine Urobilinogen Negative (Negative) 04/02/25 19:10 Ur Leukocyte Esterase Negative (Negative) 04/02/25 19:10 Urine WBC (Auto) 0-5 /hpf (0-5) 04/02/25 19:10 Urine RBC (Auto) 3-5 /hpf (0-2) H 04/02/25 19:10 U Hyaline Cast (Auto) 3-5 /lpf (0-2) H 04/02/25 19:10 U Epithel Cells (Auto) 0-2 /hpf (0-2) 04/02/25 19:10 Urine Bacteria (Auto) None Seen (None Seen) 04/02/25 19:10 Urine Comment 04/02/25 19:10 Stl C. cayetanensis PCR Not Detected (NotDetected) 04/02/25 22:39 Stool Rotavirus A PCR Not Detected (NotDetected) 04/02/25 22:39 Stl Adenov F 40/41 PCR Not Detected (NotDetected) 04/02/25 22:39 Stool Astrovirus (PCR) Not Detected (NotDetected) 04/02/25 22:39 Stool Campylobacter PCR Not Detected (NotDetected) 04/02/25 22:39 Stl C. diff Tox B Gene Negative Cdiff Gene (Neg) 04/06/25 Unknown Stl C. diff [id number] NEGATIVE 04/06/25 Unknown Stool Cryptosporidium PCR Not Detected (NotDetected) 04/02/25 22:39 Stl E.coli Shiga Tox PCR Not Detected (NotDetected) 04/02/25 22:39 Stl Enterotoxigenic E PCR Not Detected (NotDetected) 04/02/25 22:39 Stool EPEC (PCR) Not Detected (NotDetected) 04/02/25 22:39 Stool EAEC (PCR) Not Detected (NotDetected) 04/02/25 22:39 Stl E. histolytica PCR Not Detected (NotDetected) 04/02/25 22:39 Stool Giardia Lamblia PCR Not Detected (NotDetected) 04/02/25 22:39 Stool Salmonella PCR Not Detected (NotDetected) 04/02/25 22:39 Stool Sapovirus (PCR) Not Detected (NotDetected) 04/02/25 22:39 Stl P. shigelloides PCR Not Detected (NotDetected) 04/02/25 22:39 Stl Shigella/EIEC PCR Not Detected (NotDetected) 04/02/25 22:39 St Y.enterocolitica PCR Not Detected (NotDetected) 04/02/25 22:39 Stool Vibrio (PCR) Not Detected (NotDetected) 04/02/25 22:39 Stl Vibrio cholerae PCR Not Detected (NotDetected) 04/02/25 22:39 Stl Norovirus GI/GII PCR Not Detected (NotDetected) 04/02/25 22:39 Impressions Chest X-Ray 04/02/25 17:26 Chest radiograph, one view History: Edema. Comparison: January 19, 2025. Findings: Mild calcified atheromatous changes thoracic aorta unchanged. Linear band density left infrahilar region unchanged. Lung volumes are prominent. Lungs are otherwise clear. Prominent pulmonary vasculature. No chelsea edema. No appreciated acute pleural disease. Impression: Stable exam with likely left base subsegmental atelectasis and or scarring. No appreciated edema. Electronically signed by Kali Ocampo 04-02-2025 6:45 PM Medications Administered Current Inpatient Medications Acetaminophen (Acetaminophen 325 Mg Tab) 650 mg PO Q4H PRN PRN Reason: Pain or Fever Stop: 05/02/25 22:59 Albuterol (Albuterol Hfa 8 Gm Inhaler) 2 puffs INH 6XD PRN PRN Reason: shortness of breath or wheezin Stop: 05/02/25 22:59 Dextrose (Dextrose 50% 50 Ml Syringe) 25 - 50 ml IV UD PRN; Protocol PRN Reason: Hypoglycemia Protocol Stop: 05/02/25 22:59 Diltiazem HCl (Diltiazem Hcl 300 Mg Capcr) 300 mg PO QAM BRANDON Stop: 05/03/25 08:59 Last Admin: 04/06/25 09:56 Dose: 300 mg Docusate Sodium (Docusate Sodium 100 Mg Cap) 100 mg PO BID PRN PRN Reason: Constipation Stop: 05/02/25 22:59 Enoxaparin Sodium (Enoxaparin Inj 40 Mg/0.4 Ml Syr) 40 mg SQ PM BRANDON Stop: 05/02/25 22:59 Last Admin: 04/05/25 20:24 Dose: 40 mg Fluticasone Furoate (Fluticasone Furoate 100mcg 14 Puffs/Inhaler) 1 puffs INH DAILY BRANDON Stop: 05/03/25 08:59 Last Admin: 04/06/25 08:35 Dose: 1 puffs Furosemide (Furosemide 40 Mg/4 Ml Vial) 40 mg IV QAM BRANDON Stop: 05/03/25 08:59 Last Admin: 04/06/25 08:35 Dose: 40 mg Glucagon (Glucagon For Inj 1 Mg Vial) 1 mg SQ UD PRN; Protocol PRN Reason: Hypoglycemia Protocol Stop: 05/02/25 22:59 Glucose (Glucose 40% Gel 15 Gm Tube) 15 - 30 gm PO UD PRN; Protocol PRN Reason: Hypoglycemia Protocol Stop: 05/02/25 22:59 Glucose (Glucose 10 Tab/Tube) 4 - 8 tab PO UD PRN; Protocol PRN Reason: Hypoglycemia Protocol Stop: 05/02/25 22:59 Cefazolin Sodium (Ancef 2000mg) 2,000 mg in 15 mls @ 3.75 mls/min IV Q8H BRANDON Stop: 04/10/25 09:59 Last Admin: 04/06/25 12:34 Dose: 3.75 mls/min Insulin Aspart (Insulin Aspart Per Unit Charge) 0 units SC ACHS BRANDON Stop: 05/02/25 22:59 Last Admin: 04/06/25 11:30 Dose: Not Given Linezolid (Linezolid 600 Mg Tab) 600 mg PO BID BRANDON Stop: 04/10/25 08:59 Last Admin: 04/06/25 08:35 Dose: 600 mg Melatonin (Melatonin 3 Mg Tab) 3 mg PO HS PRN PRN Reason: Sleep Stop: 05/02/25 22:59 Miscellaneous (Carbohydrates For Hypoglycemia ) 15 - 30 gm PO UD PRN PRN Reason: Hypoglycemia Protocol Stop: 05/02/25 22:59 Ondansetron HCl (Ondansetron Inj 2 Mg/Ml 2 Ml Vial) 4 mg IV Q6H PRN PRN Reason: Nausea And Vomiting Stop: 05/02/25 22:59 Potassium Chloride (Potassium Chloride Crtab 20 Meq Tabcr) 40 meq PO TID BRANDON Stop: 05/04/25 10:24 Last Admin: 04/06/25 13:48 Dose: 40 meq Simvastatin (Simvastatin 20 Mg Tab) 20 mg PO QPM BRANDON Stop: 05/02/25 22:59 Last Admin: 04/05/25 20:24 Dose: 20 mg Umeclidinium/Vilanterol (Umeclidinium/Vilanterol 62.5/25mcg 7 Puffs/Inhaler) 1 puffs INH DAILY BRANDON Stop: 05/03/25 08:59 Last Admin: 04/06/25 08:35 Dose: 1 puffs Vancomycin HCl (Vancomycin Hcl 250 Mg Cap) 250 mg PO Q6 BRANDON Stop: 04/16/25 00:00 Last Admin: 04/06/25 12:34 Dose: 250 mg PG Care Time/CCT Total # of Minutes Spent Total Time Spent with Patient: Total time spent is greater than 50% in coordination of care (as documented) at patient's floor/unit and/or counseling patient: Coding Level of Care Code 37518 SUB INP/OBS CARE Diagnoses Cellulitis of both lower extremities L03.115; L03.116 Edema of both lower extremities due to peripheral venous insufficiency I87.2 Ambulatory dysfunction R26.2 Failure to thrive in adult R62.7 Time Spent (min) 25
[2025-04-06] MEDS: FUROSEMIDE INJ 20 MG/2 ML VIAL IV ONE (14:32)
[2025-04-07 06:24] LABS: Hematocrit (blood only) 38.0 % (42.0-52.0); Hemoglobin 11.8 g/dl (14.0-18.0); Mean Corpuscular Hemoglobin 27.6 pg (25.0-34.0); Mean Corpuscular Volume 88.8 fL (80.0-100.0); Platelet Count 223 K/uL (130-400); RDW Standard Deviation 48.1 fL (36.4-46.3); Red Blood Count 4.28 M/uL (4.70-6.10); White Blood Count 9.54 K/ul (4.8-10.8)
[2025-04-07 06:51] LABS: Anion Gap 9.0 (3-11); Blood Urea Nitrogen 8.0 mg/dl (6-23); Calcium 8.6 mg/dl (8.6-10.3); Carbon Dioxide 24.0 mmol/L (21-32); Chloride 103.0 mmol/L (98-107); Creatinine Clr Calc Pharmacy 71.1 ml/min; Glucose 98.0 mg/dl (70-99(Fasting)); Magnesium 1.9 mg/dl (1.7-2.4); Potassium 4.9 mmol/L (3.5-5.1); Sodium 136.0 mmol/L (136-145)
--- NOTE | 2025-04-07 10:09 | Hospitalist Progress Note ---
Date of Service April 07, 2025 Assessment & Plan (1) Cellulitis of both lower extremities: (2) Edema of both lower extremities due to peripheral venous insufficiency: (3) Ambulatory dysfunction: (4) Failure to thrive in adult: Plan Patient is a 75-year-old with past medical history of A-fib, chronic venous insufficiency, COPD, JOSH, BPH, HTN, GERD, HLD, T2DM. patient presented via EMS due to 2 days of diarrhea and bilateral lower extremity edema and erythema. He is being admitted for bilateral lower extremity cellulitis requiring IV antibiotics. overall plan he's need transportation to return home he's need to f/u with dressing change instruction in addition, duricet BID for 7 days upon discharge lasix 20 BID for next 48 hours he's need to wash with leg with soap and water rinse and dry twice a day blood culture negative #BL LE cellulitis - Recurrent he's on cefazolin. and linezolid he still has significant erythema, discharge and need another 48-72 hours of IV antibiotics wound care will need evaluation him low dose lasix today - daily dressing changes blood culture from 04/02 negative we discussed about benefit of compressioni stocking hypokalemia, Kcl 40mg TABLET BID wound care instruction leg, wash with soipa and water, rinse and dry BID left, latera lowe leg, clean with saline, covered wtih optifoam, weaver every 3 days right 1st toe, clean with saline, cover with optifaom change every 3 days buttocks, sacral, clean, apply stoma powder, brush off excess cover with barrier cream #chronic venous insufficiency - Eval by vascular during recent admission - low concern for arterial insufficiency. - on lasix 20mg PO daily at home potentially switch to bumex upon discharge - given lasix 40 mg IV x 1 on admission, continue 40 mg IV daily - increasing his KCL tablet supplementation - promote leg elevation #ambulatory dysfunction - lives in recliner at baseline. Granddaughter provides 31/12 care. - PT/OT consulted he's declined placement to [facility] #diarrhea - -C. difficile negative #a fib - Sinus rhythm on admission. Electrolytes stable. - No anticoagulation at baseline - continue diltiazem #T2DM - hold metformin, SSI while inpatient. #COPD -stable, no wheezing #JOSH - noncompliant with home CPAP, defer. VTE ppx: Lovenox daily Dispo: med/tele Admission and Anticipated Discharge Date Admission Date: April 02, 2025 Subjective C. difficile negative on cefazolin and erythema continue to improve no abdominal rash appreciated well appearing no chest pain; no fever; no chill seen by wound care; wash with soap and water; rinse and dry BID Review of Systems Review of Systems: Constitutional: no fever; no chill Cardiovascular: No Chest Pain, No SOB, No PND, No Dyspnea on Exertion, No Orthopnea, No Claudication, No Edema, No Palpitations Respiratory: No Cough, No Sputum, No Wheezing, No Smoke Exposure, No Dyspnea Gastrointestinal: no diarrhea; no abdominal pain; Musculoskeletal: no leg pain; no back pain Skin: erythema much improved Results & Data Results & Data Vital Signs (Past 12 Hours) Vital Signs Temp Pulse Pulse Pulse Resp BP Pulse Ox 04/07/25 08:03 36.4 C L 64 20 116/70 93 04/07/25 06:45 66 04/07/25 03:41 36.4 C L 75 12 117/70 93 04/06/25 22:55 78 04/06/25 22:44 36.8 C 72 12 111/66 91 04/06/25 22:43 O2 Del Method 04/07/25 08:03 Room Air 04/07/25 06:45 04/07/25 03:41 Room Air 04/06/25 22:55 04/06/25 22:44 Room Air 04/06/25 22:43 Room Air PG Care Time/CCT Total # of Minutes Spent Total Time Spent with Patient: Total time spent is greater than 50% in coordination of care (as documented) at patient's floor/unit and/or counseling patient: Coding Level of Care Code 80270 SUB INP/OBS CARE 07/04MIN Diagnoses Cellulitis of both lower extremities L03.115; L03.116 Edema of both lower extremities due to peripheral venous insufficiency I87.2 Ambulatory dysfunction R26.2 Failure to thrive in adult R62.7 Time Spent (min) 20
--- NOTE | 2025-04-07 15:38 | Hospitalist Progress Note ---
Date of Service April 07, 2025 Assessment & Plan (1) Cellulitis of both lower extremities: (2) Edema of both lower extremities due to peripheral venous insufficiency: (3) Ambulatory dysfunction: (4) Failure to thrive in adult: Plan Patient is a 75-year-old with past medical history of A-fib, chronic venous insufficiency, COPD, JOSH, BPH, HTN, GERD, HLD, T2DM. patient presented via EMS due to 2 days of diarrhea and bilateral lower extremity edema and erythema. He is being admitted for bilateral lower extremity cellulitis requiring IV antibiotics. overall plan he's need transportation to return home he's need to f/u with dressing change instruction in addition, duricet BID for 7 days upon discharge lasix 20 BID for next 48 hours he's need to wash with leg with soap and water rinse and dry twice a day blood culture negative #BL LE cellulitis - Recurrent he's on cefazolin. and linezolid he still has significant erythema, discharge and need another 48-72 hours of IV antibiotics wound care will need evaluation him low dose lasix today - daily dressing changes blood culture from 04/02 negative we discussed about benefit of compressioni stocking hypokalemia, Kcl 40mg TABLET BID wound care instruction leg, wash with soipa and water, rinse and dry BID left, latera lowe leg, clean with saline, covered wtih optifoam, weaver every 3 days right 1st toe, clean with saline, cover with optifaom change every 3 days buttocks, sacral, clean, apply stoma powder, brush off excess cover with barrier cream #chronic venous insufficiency - Eval by vascular during recent admission - low concern for arterial insufficiency. - on lasix 20mg PO daily at home potentially switch to bumex upon discharge - given lasix 40 mg IV x 1 on admission, continue 40 mg IV daily - increasing his KCL tablet supplementation - promote leg elevation #ambulatory dysfunction - lives in recliner at baseline. Granddaughter provides 31/12 care. - PT/OT consulted he's declined placement to [facility] #diarrhea - -C. difficile negative #a fib - Sinus rhythm on admission. Electrolytes stable. - No anticoagulation at baseline - continue diltiazem #T2DM - hold metformin, SSI while inpatient. #COPD -stable, no wheezing #JOSH - noncompliant with home CPAP, defer. VTE ppx: Lovenox daily Dispo: med/tele Admission and Anticipated Discharge Date Admission Date: April 02, 2025 Subjective C. difficile negative on cefazolin and erythema continue to improve he will no abdominal rash appreciated well appearing no chest pain; no fever; no chill seen by wound care; wash with soap and water; rinse and dry BID Results & Data Results & Data Vital Signs (Past 12 Hours) Vital Signs Temp Pulse Pulse Resp BP Pulse Ox O2 Del Method 04/07/25 11:29 36.5 C 78 18 109/65 92 Room Air 04/07/25 08:10 Room Air 04/07/25 08:03 36.4 C L 64 20 116/70 93 Room Air 04/07/25 06:45 66 04/07/25 03:41 36.4 C L 75 12 117/70 93 Room Air PG Care Time/CCT Total # of Minutes Spent Total Time Spent with Patient: Total time spent is greater than 50% in coordination of care (as documented) at patient's floor/unit and/or counseling patient: Coding Diagnoses Cellulitis of both lower extremities L03.115; L03.116 Edema of both lower extremities due to peripheral venous insufficiency I87.2 Ambulatory dysfunction R26.2 Failure to thrive in adult R62.7
[2025-04-08 07:27] VITALS: RESP 18; TEMP 97.7; O2SAT 92
[2025-04-08 09:15] VITALS: BP 116/70; PULSE 72
--- NOTE | 2025-04-08 11:34 | Discharge Summary ---
Discharge Summary Date of Service April 08, 2025 Principal Dx & Hospital Course #1 = Principal Diagnosis (1) Cellulitis of both lower extremities: Alton Arenas is a 75 yo male with PMh of lymphedema, obesity; type 2 diabetes, A-fib, he is homebound at baseline and his grand-daughter help take care of him on day of admission, he was having b/l cellulitis and admited for IV antibiotics, he was started on cefazolin IV and linezolid and slow to imroved he need IV lasix for lymphedema. he was seen by wound care nurse and recommended regular wound care he will need to wash his leg with soap and water and rinse and dry twice a day for his left lateral leg, he will clean with saline, cover with optiform, and change every 3 days, SOONER if needed for his right 1st toe, clean with saline, covered with optifoam and change una 3 days and soon as needed for his buttock and sacral area, wound care requested apply stoma powder, brush off excess. cover with barrier cream. his leg cellulitis improved, he's was dc home on 04/08/2025 with duricef BID and linezolid BID he's declined placement to [facility]. he was having loose watery bowel movement but has negative C. difficile, and diarrhea later resolved. he's stated he is in poor health for many years he been declining preventative care such as colonoscopy his also been declining mammogram he's requested to be dc home with home services (2) Edema of both lower extremities due to peripheral venous insufficiency: (3) Ambulatory dysfunction: (4) Failure to thrive in adult: Plan Patient is a 75-year-old with past medical history of A-fib, chronic venous insufficiency, COPD, JOSH, BPH, HTN, GERD, HLD, T2DM. patient presented via EMS due to 2 days of diarrhea and bilateral lower extremity edema and erythema. He is being admitted for bilateral lower extremity cellulitis requiring IV antibiotics. overall plan he's need transportation to return home he's need to f/u with dressing change instruction in addition, duricet BID for 7 days upon discharge lasix 20 BID for next 48 hours he's need to wash with leg with soap and water rinse and dry twice a day blood culture negative #BL LE cellulitis - Recurrent he's on cefazolin. and linezolid he still has significant erythema, discharge and need another 48-72 hours of IV antibiotics wound care will need evaluation him low dose lasix today - daily dressing changes blood culture from 04/02 negative we discussed about benefit of compressioni stocking hypokalemia, Kcl 40mg TABLET BID wound care instruction leg, wash with soipa and water, rinse and dry BID left, latera lowe leg, clean with saline, covered wtih optifoam, weaver every 3 days right 1st toe, clean with saline, cover with optifaom change every 3 days buttocks, sacral, clean, apply stoma powder, brush off excess cover with barrier cream #chronic venous insufficiency - Eval by vascular during recent admission - low concern for arterial insufficiency. - on lasix 20mg PO daily at home potentially switch to bumex upon discharge - given lasix 40 mg IV x 1 on admission, continue 40 mg IV daily - increasing his KCL tablet supplementation - promote leg elevation #ambulatory dysfunction - lives in recliner at baseline. Granddaughter provides 31/12 care. - PT/OT consulted he's declined placement to [facility] #diarrhea - -C. difficile negative #a fib - Sinus rhythm on admission. Electrolytes stable. - No anticoagulation at baseline - continue diltiazem #T2DM - hold metformin, SSI while inpatient. #COPD -stable, no wheezing #JOSH - noncompliant with home CPAP, defer. VTE ppx: Lovenox daily Dispo: med/tele Admission HPI Per Admitting Provider Patient is a 75-year-old with past medical history of A-fib, chronic venous insufficiency, COPD, JOSH, BPH, HTN, GERD, HLD, T2DM. patient presented via EMS due to 2 days of diarrhea and bilateral lower extremity edema and erythema. He is being admitted for bilateral lower extremity cellulitis requiring IV antibiotics. Patient does not ambulate at baseline, PT/OT consulted. Patient seen at bedside. He stated he lives at home with his granddaughter providing him 24/ care. He lives in his recliner and is unable to ambulate at baseline. He only gets up to use a bedside urinal. He stated his granddaughter told him to come in for concern for C. difficile as he has had diarrhea for 2 days. He stated he has had 1-2 episodes of diarrhea for the past 2 days of loose stools, denies watery stools. He denies any hematochezia. He denies any history of C. difficile Or recent exposures however has recently been on Keflex approximately 1 month ago. Patient also was concerned about his bilateral lower extremity edema which did not improve after admission from 01/19 to 01/25 for lower extremity cellulitis (treated with cefepime and, transition to cefazolin, and then duricef). he stated the redness returned several days ago. He saw wound care when he was hospitalized 2 months ago however does not follow-up with them in the outpatient setting as he is unable to get out of his recliner. He does endorse a chronic cough since he had COVID. He denies any chest pain, shortness of breath, rhinorrhea, abdominal pain, dysuria, difficulty urinating, hematuria. He denies nicotine use. He does not use his CPAP for sleep apnea as he is unable to tolerate it. He took his morning medications including Lasix 20 mg p.o., is due for evening medications. He stated he was on Eliquis for afib however never had the medication filled and is no longer on it. He wishes to be full code. Discharge Exam VITALS: Reviewed. WEIGHT/BMI reviewed. GEN: Healthy appearing, well-developed, NAD. HEENT -Head: NC/AT; CV: RRR, no m/r/g. LUNGS: CTAB, no w/r/c. ABD: Soft, NT/ND, NBS, no masses or organomegaly. : N/A SKIN: erythema and scaling much improved EXT: No clubbing, cyanosis, or edema. NEURO: AAox3; bedbound Discharge Plan Discharge Items Patient Disposition: Home - Home Health Services Reason For Visit: BL LE CELLULITIS, AMBULATORY DYSFUNCTION Discharge Diagnosis: bilateral cellulitis chronic lymphedema ambulatory dysfunction Condition on Discharge: Fair Activity: Per Instructions section Non-emergency contact: Primary Care Provider Call non-emergency contact if: you have any medication questions, your symptoms worsen and you have a fever Follow-up/Referrals: Harlan Osorio MD [Primary Care Provider] - 04/15/25 10:00 am Diet: Carb Consistent or DM2 Addtl Attending Provider Instructions: you will need to has regular wound care. wash with soap and water, rinse and dry twice a day to the left, lateral lower leg, clean with saline, cove with optifoam, change every 3 days and as needed to right 1st toe, clean with saline, cover with optifaom, change every 3 days. buttocks, sacral area, clean, apply stoma powder, and brush off excess. cover buttock with barrier cream, Pending Studies at Discharge: Yes Studies:: recheck blood work, CBC, BMP Stand-Alone Forms: My [facility], Smoking Cessation Medications and DC Order Prescriptions: New linezolid 600 mg Tablet 600 mg PO BID 7 Days Qty: 14 0RF cefadroxil 500 mg capsule 500 mg PO Q12H 7 Days Qty: 14 0RF Continued furosemide 20 mg tablet 20 mg PO QAM Qty: 90 1RF metformin 500 mg tablet 500 mg PO BID Qty: 180 3RF simvastatin 20 mg tablet 20 mg PO QPM Qty: 90 3RF hydroxyzine HCl 25 mg tablet 25 mg PO BID PRN (Reason: itching) Qty: 60 1RF Hold Instructions: Resume on 03/13/23. potassium chloride 20 mEq tablet extended release 20 meq PO QAM Qty: 30 1RF diltiazem HCl [Cardizem CD] 300 mg capsule,extended release 24hr 300 mg PO QAM Qty: 90 3RF diphenhydramine HCl [Benadryl Allergy] 25 mg Tablet 25 mg PO HS PRN (Reason: Sleep) Trelegy Ellipta 100-62.5-25 mcg blister with device 1 inh inhalation QAM albuterol sulfate 90 mcg/actuation HFA aerosol inhaler 2 inh inhalation 6XD PRN (Reason: shortness of breath or wheezing) Qty: 8.5 0RF Discontinued cephalexin 500 mg tablet 500 mg PO Q6H Qty: 28 0RF Discharge Orders: Discharge Order (Routine); Ordered 04/08/25 Ordered By: Danica Higuera/Other Patient Handouts: Understanding Lymphedema, ED Lymphedema Admission Data Admit Date/Time: 04/02/25 19:48 Attending Provider: Danica Hayden Admit Provider: Sean Shields Primary Care Provider: Harlan Osorio Other Providers: Sean Shields; [facility],Home Healthcare Other Interventions: Discharge Summary Assessment (RN) Last Done: 04/08/25 09:14 Hospital Stay Data Consultations 04/02/25 19:24 ED Decision to Admit Stat Pending Results Patient Have Any Pending Studies at Discharge: Yes Discharge Instructions Given to Patient (Per Discharging Provider) you will need to has regular wound care. wash with soap and water, rinse and dry twice a day to the left, lateral lower leg, clean with saline, cove with optifoam, change every 3 days and as needed to right 1st toe, clean with saline, cover with optifaom, change every 3 days. buttocks, sacral area, clean, apply stoma powder, and brush off excess. cover buttock with barrier cream, Total Time Total Time Spent Total Time Spent (In Minutes): 29 Coding Level of Care Code 27967 IN/OBS DISCH 30 MIN/LESS Diagnoses Cellulitis of both lower extremities L03.115; L03.116 Edema of both lower extremities due to peripheral venous insufficiency I87.2 Ambulatory dysfunction R26.2 Failure to thrive in adult R62.7
== END 2025-04-08 10:30 | disposition home health service (06) | DRG 603 ==
LOC: ED 17:06 → 2W 19:48 → SUATTDRO 19:48 → INTOOBSV 19:48 → 2W 22:42

== ENCOUNTER 2025-04-14 11:04 | Inpatient (IN) ==
[2025-04-14 11:56] LABS: Hematocrit (blood only) 40.3 % (42.0-52.0); Hemoglobin 13.2 g/dl (14.0-18.0); Immature Granulocytes # (auto) 0.03 K/uL (0.01-0.20); Immature Granulocytes % (auto) 0.2 %; Mean Corpuscular Hemoglobin 28.8 pg (25.0-34.0); Mean Corpuscular Volume 87.8 fL (80.0-100.0); Platelet Count 184 K/uL (130-400); RDW Standard Deviation 46.2 fL (36.4-46.3); Red Blood Count 4.59 M/uL (4.70-6.10); White Blood Count 13.90 K/ul (4.8-10.8)
[2025-04-14 12:14] LABS: Alanine Aminotransferase 9.0 U/L (7-52); Albumin Globulin Ratio 0.9 (0.9-2); Albumin Level 3.6 gm/dl (3.4-5.0); Alkaline Phosphatase 71.0 U/L (34-104); Anion Gap 11.0 (3-11); Bilirubin,Total 0.8 mg/dl (0.2-1.0); Blood Urea Nitrogen 26.0 mg/dl (6-23); Calcium 9.2 mg/dl (8.6-10.3); Carbon Dioxide 23.0 mmol/L (21-32); Chloride 100.0 mmol/L (98-107); Creatinine Clr Calc Pharmacy 58.6 ml/min; Globulin 3.8 gm/dl (2.5-4.0); Glucose 108.0 mg/dl (70-99(Fasting)); Potassium 4.6 mmol/L (3.5-5.1); Sodium 134.0 mmol/L (136-145); Total Protein 7.4 gm/dl (6.0-8.3)
[2025-04-14 12:21] LABS: INR 1.1 (0.9-1.1); Partial Thromboplastin Time 30 Seconds (21-31); Prothrombin Time 11.3 Seconds (9.0-12.0)
--- NOTE | 2025-04-14 13:58 | Emergency Department Note ---
Impression & Plan Painless rectal bleeding, Tear of skin of buttock, HARDIN (dyspnea on exertion), Ambulatory dysfunction, Decubitus ulcer ED Provider Note NAME: VAZQUEZ PACE AGE: 75 SEX: M : 1950 ARRIVES VIA: Ambulance INFORMANT: Patient, ED PROVIDER(S): Nikkie Baker MD CHIEF COMPLAINT: Rectal bleeding HPI: This is a 75-year-old male presenting for GI bleed. Patient notes that last few days he has had worsening bleeding. Initially was bright red blood, small-volume. His increase in volume over the past 1 day. Reports no fevers or chills with this. Has had previous history of hemorrhoids. He reports bilateral sores to his bottom from sitting in a chair. Reports no pain with this. ROS: See above HPI for pertinent positives & negatives. A total of 10 systems reviewed and were otherwise negative. PAST MEDICAL HISTORY: See Below PAST SURGICAL HISTORY: See Below FAMILY HISTORY: See Below SOCIAL HISTORY: See Below HOME MEDICATIONS: See Below ALLERGIES: See Below VITALS: See Below PHYSICAL EXAMINATION: General: Chronically ill-appearing, disheveled, morbidly obese Head: Normocephalic and atraumatic Eyes: Normal inspection, extraocular muscles intact Ear, nose, throat: Normal external exam Neck: Normal range of motion Respiratory: lungs clear to auscultation bilaterally Cardiovascular: Regular rate/rhythm, no murmur GI: Bilateral stage I decubitus ulcers, left perineal tear, Hemoccult positive stool Extremities: nontender, moves all extremities Neuro: The patient awake and alert, appropriately conversive, no focal deficits, symmetric faces Skin: Warm, dry, and intact MEDICAL DECISION MAKING: This is a 75-year-old male presenting for GI bleed. Patient has a tear to his perineum which could explain his GI bleed however his Hemoccult is positive. Patient did have decubitus ulcers to perineal and buttocks region. He does not have wound care for this. He is only applying cream. - Leukocytosis noted at 13.19. Hemoglobin 13.2. No similar disturbances. Slightly elevated creatinine. - Due to GI bleed, ambulatory dysfunction, decubitus ulcers will admit for further workup and evaluation Differential diagnosis: Upper verse lower GI bleed, rectal tear, hemorrhoids, anemia, sepsis Independent History obtained from: Daughter Diagnostics interpreted by me: ECG: None Cardiac Monitoring: An order was placed for continuous cardiac monitoring. The monitor shows a rate of 80 with sinus rhythm. Past Med/Surg History Problem List (Updated 04/15/25 @ 14:45 by Nikkie Baker MD) Decubitus ulcer (Acute) Tear of skin of buttock (Acute) Painless rectal bleeding (Acute) Anemia Osteoarthritis of right hip Blood per rectum Wound of gluteal cleft Heme positive stool Sylvia rash of groin Cellulitis (Acute) Weakness (Acute) Ambulatory dysfunction (Acute) Cellulitis of both lower extremities Pedal edema (Acute) BPH w urinary obs/LUTS Chronic venous insufficiency Sepsis Failure to thrive in adult Edema of both lower extremities due to peripheral venous insufficiency Leg wound, right (Acute) COPD (chronic obstructive pulmonary disease) Hematuria Impaired gait and mobility Immobility History of sepsis Morbid obesity with BMI of 40.0-44.9, adult DVT prophylaxis DMII (diabetes mellitus, type 2) Hypomagnesemia (Acute) Depression Pruritic dermatitis Hypomagnesemia HARDIN (dyspnea on exertion) (Acute) Gait abnormality Vitamin D deficiency Edema Asthma HTN (hypertension) (Acute) Prediabetes (Chronic) Benign localized hyperplasia of prostate with urinary obstruction (Chronic) Dyslipidemia (Chronic) GERD (gastroesophageal reflux disease) (Chronic) Medical History Leukocytosis Acute UTI Cellulitis Lower extremity cellulitis Atrial fibrillation with rapid ventricular response Urinary retention 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 Arriola S/P partial colectomy H/O oral surgery H/O inguinal hernia repair Family History Other Adopted Family history unknown Denies family history of Ovarian cancer Prostate cancer Myocardial infarction Breast cancer Colorectal cancer Social History (Updated 04/14/25 @ 21:11 by Syd Jenkins MD) Smoking Status: Former smoker Tobacco Type: Cigarettes Age Started Using Tobacco: 15; Age Quit Using Tobacco: 47; packs per day: 2; Second Hand Exposure: No; Do You Dip or Chew Tobacco: No; Hx Alcohol Use: No Hx Substance Use: No Preferred Language: Lithuanian Communication Ability: Effective Visual Impairment: No Limitations Hearing Ability: Normal Convention Manager Required: No Beliefs That Will Affect Care: None marital status: Current Living Situation: Spouse and Family current occupational status: retired 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 How many Children do You have: 2 How many Children do You have Comment: 1 daughter is Other Information That Helps Us Care for You: No Feels Safe at Home: Yes Childhood Exposure to Second-Hand Smoke: Yes Diet: regular during the past year weight has: remained stable Dental Care, Regularly: No Physical Activity Frequency: Does not Exercise Seatbelt Use: always Sunscreen Use: No Assistive Devices: Lift Chair and Wheelchair Allergies Allergies Allergy/AdvReac Type Severity Reaction Status Date / Time sulfamethoxazole Allergy Mild itching Verified 04/12/25 10:58 [From Bactrim] trimethoprim [From Bactrim] Allergy Mild itching Verified 04/12/25 10:58 cheese Allergy Unknown SICK TO Verified 04/12/25 10:58 STOMACH Penicillins Allergy Unknown RASH Verified 04/12/25 10:58 Home Meds Home Medications Medication Instructions Recorded Confirmed diphenhydramine HCl 25 mg tablet 25 mg PO HS PRN Sleep 05/23/23 04/14/25 (Benadryl Allergy) fluticasone fur. 100 mcg-umeclid 1 inh inhalation QAM 01/19/25 04/14/25 62.5 mcg-vilant 25 mcg inhalat.powder (Trelegy Ellipta) Previous Rx's Medication Instructions Recorded furosemide 20 mg tablet 20 mg PO QAM #90 tabs 05/19/24 metformin 500 mg tablet 500 mg PO BID #180 tabs 09/18/24 simvastatin 20 mg tablet 20 mg PO QPM #90 tabs 09/18/24 albuterol sulfate 90 mcg/actuation 2 inh inhalation 6XD PRN shortness 09/29/24 aerosol inhaler of breath or wheezing #8.5 grams diltiazem HCl 300 mg 300 mg PO QAM #90 caps 10/30/24 capsule,extended release 24 hr (Cardizem CD) hydroxyzine HCl 25 mg tablet 25 mg PO BID PRN itching #60 tabs 01/27/25 potassium chloride 20 mEq 20 meq PO QAM #30 tabs 01/27/25 tablet,extended release Results & Data (ED) Vital Signs Vital Signs - 24 hr 04/14/25 14:42 Pulse Rate 88 Respiratory Rate 18 Laboratory Data 04/15/25 06:01 04/15/25 06:01 Lab Results 04/14/25 04/14/25 04/14/25 Range/Units 11:18 11:32 12:27 WBC 13.90 H (4.8-10.8) K/ul RBC 4.59 L (4.70-6.10) M/uL Hgb 13.2 L (14.0-18.0) g/dl Hct 40.3 L (42.0-52.0) % MCV 87.8 (80.0-100.0) fL MCH 28.8 (25.0-34.0) pg MCHC 32.8 (32.0-36.0) g/dL RDW Std Deviation 46.2 (36.4-46.3) fL RDW Coeff of Jocelyn 14.5 (11.5-14.5) % Plt Count 184 (130-400) K/uL MPV 8.6 L (9.4-12.4) fL Immature Gran % (Auto) 0.2 % Neut % (Auto) 84.2 % Lymph % (Auto) 7.4 % Yates % (Auto) 6.6 % Eos % (Auto) 1.3 % Baso % (Auto) 0.3 % Neut # (Auto) 11.70 H (1.40-6.50) K/uL Lymph # (Auto) 1.03 L (1.20-3.40) K/uL Yates # (Auto) 0.92 H (0.11-0.59) K/uL Eos # (Auto) 0.18 (0.00-0.50) K/uL Baso # (Auto) 0.04 (0.00-0.20) K/uL Immature Gran # (Auto) 0.03 (0.01-0.20) K/uL PT 11.3 (9.0-12.0) Seconds INR 1.1 (0.9-1.1) APTT 30 (21-31) Seconds PTT Ratio 1.1 Sodium 134 L (136-145) mmol/L Potassium 4.6 (3.5-5.1) mmol/L Chloride 100 (98-107) mmol/L Carbon Dioxide 23 (21-32) mmol/L Anion Gap 11 (3-11) BUN 26 H (6-23) mg/dl Creatinine 1.45 H (0.6-1.4) mg/dl Est Cr Clr Drug Dosing 58.6 ml/min eGFR 49.94 BUN/Creatinine Ratio 17.9 (10-20) Glucose 108 H (70-99(Fasting)) mg/dl Calcium 9.2 (8.6-10.3) mg/dl Magnesium 1.9 (1.7-2.4) mg/dl Total Bilirubin 0.8 (0.2-1.0) mg/dl AST 22 (13-39) U/L ALT 9 (7-52) U/L Alkaline Phosphatase 71 (34-104) U/L Total Protein 7.4 (6.0-8.3) gm/dl Albumin 3.6 (3.4-5.0) gm/dl Globulin 3.8 (2.5-4.0) gm/dl Albumin/Globulin Ratio 0.9 (0.9-2) POC Stool Occult Blood Positive A (Negative) Blood Type Cancelled O Positive Antibody Screen Cancelled NEGATIVE Administered Medications Baclofen (Baclofen 10 Mg Tab) 5 mg PO TID [facility] Stop: 05/14/25 20:59 Last Admin: 04/15/25 13:32 Dose: 5 mg Documented By: Admin: 04/15/25 08:02 Dose: 5 mg Documented By: Admin: 04/14/25 21:52 Dose: 5 mg Documented By: HUI Cyanocobalamin (Cyanocobalamin 1000 Mcg/Ml Vial) 1,000 mcg IM QAM BRANDON Stop: 04/20/25 08:59 Last Admin: 04/15/25 08:28 Dose: 1,000 mcg Documented By: SAGAR Fluticasone Furoate (Fluticasone Furoate 100mcg 14 Puffs/Inhaler) 1 puffs INH DAILY BRANDON Stop: 05/15/25 08:59 Last Admin: 04/15/25 08:02 Dose: 1 puffs Documented By: SAGAR Insulin Aspart (Insulin Aspart Per Unit Charge) 0 units SC ACHS BRANDON Stop: 05/14/25 17:27 Last Admin: 04/15/25 11:04 Dose: Not Given Documented By: Admin: 04/15/25 08:00 Dose: Not Given Documented By: Admin: 04/14/25 21:59 Dose: Not Given Documented By: Admin: 04/14/25 19:24 Dose: Not Given Documented By: SURJIT Nystatin (Nystatin Powder 15gm Btl) 1 appln EXT TID BRANDON Stop: 05/14/25 17:27 Last Admin: 04/15/25 13:32 Dose: 1 appln Documented By: Admin: 04/15/25 08:02 Dose: 1 appln Documented By: Admin: 04/14/25 21:53 Dose: 1 appln Documented By: Admin: 04/14/25 19:14 Dose: Not Given Documented By: MARCO ANTONIO Simvastatin (Simvastatin 20 Mg Tab) 20 mg PO QPM BRANDON Stop: 05/14/25 20:59 Last Admin: 04/14/25 21:53 Dose: 20 mg Documented By: HUI Umeclidinium/Vilanterol (Umeclidinium/Vilanterol 62.5/25mcg 7 Puffs/Inhaler) 1 puffs INH DAILY BRANDON Stop: 05/15/25 08:59 Last Admin: 04/15/25 08:02 Dose: 1 puffs Documented By: SAGAR Discontinued Medications Acetaminophen (Acetaminophen 500 Mg Tab) 500 mg PO NOW STA Stop: 04/14/25 14:33 Last Admin: 04/14/25 14:50 Dose: 500 mg Documented By: lewis Hydrocodone Bitart/Acetaminophen (Hydrocodone/Acetaminophen 10/325 Tab) 1 tab PO ONE STA Stop: 04/14/25 14:34 Last Admin: 04/14/25 14:49 Dose: 1 tab Documented By: lewis Baclofen (Baclofen 10 Mg Tab) 5 mg PO ONE ONE Stop: 04/14/25 14:34 Last Admin: 04/14/25 14:50 Dose: 5 mg Documented By: lewis Sodium Chloride (Nss) 1,000 mls @ 75 mls/hr IV .[id number] BRANDON Stop: 04/15/25 06:47 Last Infusion: 04/15/25 06:31 Dose: Infused Documented By: Infusion: 04/15/25 06:30 Dose: 0 mls/hr Documented By: ASSISTANT PROFESSOR OF PSYCHOLOGY Admin: 04/14/25 17:55 Dose: 75 mls/hr Documented By: ALAN Discharge Plan Visit Data Chief Complaint: Rectal Bleed Stated Complaint: RECTAL BLEED ED Provider: Nikkie Baker Discharge Problem: Painless rectal bleeding, Tear of skin of buttock, HARDIN (dyspnea on exertion), Ambulatory dysfunction, Decubitus ulcer Patient Disposition: Admitted As Inpatient Condition: Fair Discharge Instructions Interventions: ED Discharge Assessment Last Done: 04/14/25 17:28
--- NOTE | 2025-04-14 14:32 | History & Physical Report ---
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 He presents from home via EMS due to 48+ hours of multiple episodes of bright red blood coming from the gluteal/rectal region. #bleeding from rectum vs wilfrid-rectal region with gluteal cleft wound - -suspect that most of the blood seen is from the severe skin breakdown and the gluteal cleft ulceration -I cannot fully rule out rectal bleeding from an internal hemorrhoid, diverticulosis, etc but felt less likely (heme+ stool could simply be from blood from the skin breakdown mixing into the rectal region) -his H/H today are stable in comparison to his CBCs from 1 week ago -will allow clear liquid diet -serial H/H's -if it becomes more obvious that the blood seen is indeed from the rectum then will obtain GI consultation -wound care consult for the ulceration & skin breakdown in the wilfrid-rectal / gluteal-sacral region -kaltostat to the ulcerated area for now until wound care can see him tomorrow #mild anemia - -again H/H are relatively stable vs his CBCs from a week ago -serial H/H's -check Fe studies, B12, folate in am #right groin pain - -2018 hip x-rays showed SEVERE, end-stage OA changes of right hip -suspect the groin pain is from end-stage OA -tylenol, pain meds, baclofen prn for pain & spasm -recheck x-rays - rule out fracture to be complete #pre-DM - -a1c 5.5% in 01/2025 -DM diet -glucose 108 at presentation today -check BSGs ac/hs -hold metformin #COPD - -no exacerbation at this time -cont usual inhalers including albuterol prn #HTN - -hold diltiazem -hold lasix #h/o adenocarcinoma of the colon - -s/p resection with anastomosis 1998 -last colonoscopy 2016 with 1 polyp only #candidal groin rash - -nystatin powder TID #hyperlipidemia - -simvastatin daily #DVT proph - -defer on chemical means due to the wilfrid-rectal (and/or rectal) bleeding #ambulatory dysfunction - -PT, OT #recent b/l LE cellulitis - -resolved pt's family updated at bedside during the admission process History of Present Illness Chief Complaint: blood per rectum Primary Care Provider: Harlan Osorio MD 75yo male with severe hip arthritis, ambulatory dysfunction, lymphedema, COPD, GERD, BPH, HTN, pre-DM, 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 He presents from home via EMS due to 48+ hours of multiple episodes of bright red blood coming from the gluteal/rectal region. Despite such he has had no loss or change in appetite, no abd pain, no nausea/emesis. Denies melena or tarry stool. The blood is often times on the sheet or towel that is underneath his buttocks region. When he has a bowel movement the blood seems separate from the stool. The stool has been dark brown. He denies any rectal pain. However, he has had wilfrid-rectal discomfort as well as skin breakdown in this region. He also c/o pruritic rash in his groin region b/l. Last colonoscopy was in 2016 showing sigmoid diverticulitis as well as 1 polyp. Patient is essentially non-ambulatory at home and spends most of the day in his recliner chair. Finally, he c/o chronic right groin pain. Hurts with any right leg movement. Told years ago "I need a hip replacement." Allergies Allergy/AdvReac Type Severity Reaction Status Date / Time sulfamethoxazole Allergy Mild itching Verified 04/12/25 10:58 [From Bactrim] trimethoprim [From Bactrim] Allergy Mild itching Verified 04/12/25 10:58 cheese Allergy Unknown SICK TO Verified 04/12/25 10:58 STOMACH Penicillins Allergy Unknown RASH Verified 04/12/25 10:58 Home Medications Medication Instructions Recorded Confirmed Type diphenhydramine HCl 25 mg tablet 25 mg PO HS PRN Sleep 05/23/23 04/14/25 History (Benadryl Allergy) furosemide 20 mg tablet 20 mg PO QAM #90 tabs 05/19/24 04/14/25 Rx metformin 500 mg tablet 500 mg PO BID #180 tabs 09/18/24 04/14/25 Rx simvastatin 20 mg tablet 20 mg PO QPM #90 tabs 09/18/24 04/14/25 Rx albuterol sulfate 90 mcg/actuation 2 inh inhalation 6XD PRN shortness 09/29/24 04/14/25 Rx aerosol inhaler of breath or wheezing #8.5 grams diltiazem HCl 300 mg 300 mg PO QAM #90 caps 10/30/24 04/14/25 Rx capsule,extended release 24 hr (Cardizem CD) fluticasone fur. 100 mcg-umeclid 1 inh inhalation QAM 01/19/25 04/14/25 History 62.5 mcg-vilant 25 mcg inhalat.powder (Trelegy Ellipta) hydroxyzine HCl 25 mg tablet 25 mg PO BID PRN itching #60 tabs 01/27/25 04/14/25 Rx potassium chloride 20 mEq 20 meq PO QAM #30 tabs 01/27/25 04/14/25 Rx tablet,extended release Past Med/Surg History Problem List (Updated 04/15/25 @ 05:56 by Syd Jenkins MD) Anemia Osteoarthritis of right hip Blood per rectum Wound of gluteal cleft Heme positive stool Sylvia rash of groin Cellulitis (Acute) Weakness (Acute) Ambulatory dysfunction Cellulitis of both lower extremities Pedal edema (Acute) BPH w urinary obs/LUTS Chronic venous insufficiency Sepsis Failure to thrive in adult Edema of both lower extremities due to peripheral venous insufficiency Leg wound, right (Acute) COPD (chronic obstructive pulmonary disease) Hematuria Impaired gait and mobility Immobility History of sepsis Morbid obesity with BMI of 40.0-44.9, adult DVT prophylaxis DMII (diabetes mellitus, type 2) Hypomagnesemia (Acute) Depression Pruritic dermatitis Hypomagnesemia HARDIN (dyspnea on exertion) Gait abnormality Vitamin D deficiency Edema Asthma HTN (hypertension) (Acute) Prediabetes (Chronic) Benign localized hyperplasia of prostate with urinary obstruction (Chronic) Dyslipidemia (Chronic) GERD (gastroesophageal reflux disease) (Chronic) Medical History Leukocytosis Acute UTI Cellulitis Lower extremity cellulitis Atrial fibrillation with rapid ventricular response Urinary retention 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 Arriola S/P partial colectomy H/O oral surgery H/O inguinal hernia repair Family History Other Adopted Family history unknown Denies family history of Ovarian cancer Prostate cancer Myocardial infarction Breast cancer Colorectal cancer Social History (Updated 04/14/25 @ 21:11 by Syd Jenkins MD) Smoking Status: Former smoker Tobacco Type: Cigarettes Age Started Using Tobacco: 15; Age Quit Using Tobacco: 47; packs per day: 2; Second Hand Exposure: No; Do You Dip or Chew Tobacco: No; Hx Alcohol Use: No Hx Substance Use: No Preferred Language: Faroese Communication Ability: Effective Visual Impairment: No Limitations Hearing Ability: Normal [employer] 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: No Beliefs That Will Affect Care: None marital status: Current Living Situation: Spouse and Family current occupational status: retired 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 How many Children do You have: 2 How many Children do You have Comment: 1 daughter is Other Information That Helps Us Care for You: No Feels Safe at Home: Yes Childhood Exposure to Second-Hand Smoke: Yes Diet: regular during the past year weight has: remained stable Dental Care, Regularly: No Physical Activity Frequency: Does not Exercise Seatbelt Use: always Sunscreen Use: No Assistive Devices: Lift Chair, Walker and Wheelchair Review of Systems Review of Systems: gen - no fevers, no chills; reports chronic poor appetite; reports weight loss eyes - no ocular complaints HENT - no recent URI symptoms; does report dry mouth cv - no chest pain; chronic LE edema b/l pulm - no dyspnea at rest; no cough GI - no abd pain or N/V; some loose stool but stool is grossly brown; ?bleeding from rectum or the [id number] region - no dysuria neuro - no headache; chronic generalized weakness and ambulatory dysfunction skin - rash in groin; skin irritation in perineal and gluteal region musculo - chronic right groin pain & "spasm" endo - h/o pre-DM only Physical Exam Physical Exam: gen - lying on gurney, uncomfortable when he tries to move; but awake/alert eyes - PERRL HENT - nose clear; mouth - MM mildly dry; no lesions neck - no JVD, no lymph nodes heart - RRR, s1 s2, no murmur lungs - CTA b/l abd - soft NT ND BS+; no peritoneal signs rectum - brown stool present at the anus; no gross blood; stool also not melena in appearance; I did not perform digital exam skin - severe chronic stasis changes of b/l shins from knees to just above the ankles b/l; skin is pink b/l shins but no cellulitis; numerous nodules/large papules on the surface of the shins b/l; wilfrid-rectal and gluteal cleft region -- skin is very irritated with several areas of open skin with slowing oozing blood; there is a dominant ulceration in the midline, about 1.5-2cm in length, about 0.5cm in diameter, at least 2mm in depth with fascial tissue exposed; some fresh blood oozing from this ulceration; candidal rash in groin, lower abd wall panus skin folds, etc extremities - pulses b/l feet 2+; 1-2+ lymphedema of feet & shins musculo - severely restricted passive ROM of right hip, mild-moderate restricted passive ROM of left hip; right hip ROM causes pain neuro - b/l handgrip strength 5/5; LE strength 4/5 b/l - little worse on right psych - a/o x 3 Results & Data Results & Data Vital Signs (Past 12 Hours) Vital Signs Temp Pulse Resp BP Pulse Ox O2 Del Method 04/14/25 13:42 91 H 17 92 04/14/25 13:30 88 16 93 04/14/25 13:21 85 18 93 04/14/25 13:12 88 18 90 04/14/25 13:00 93 H 19 87 L 04/14/25 12:51 88 15 91 11/05/25 12:42 89 20 93 04/14/25 12:30 93 H 23 91 04/14/25 12:21 88 12 94 04/14/25 12:18 04/14/25 12:18 04/14/25 12:18 04/14/25 12:18 04/14/25 12:18 04/14/25 12:12 94 H 16 04/14/25 12:10 04/14/25 12:00 88 15 04/14/25 11:51 88 16 04/14/25 11:42 98 H 19 04/14/25 11:36 93 H 04/14/25 11:30 90 17 04/14/25 11:21 89 16 94 04/14/25 11:18 Room Air 04/14/25 10:56 36.5 C 91 H 16 114/69 93 Room Air Laboratory Results Laboratory Results - last 24 hr 04/14/25 04/14/25 04/14/25 11:18 11:32 12:27 WBC 13.90 H RBC 4.59 L Hgb 13.2 L Hct 40.3 L MCV 87.8 MCH 28.8 MCHC 32.8 RDW Std Deviation 46.2 RDW Coeff of Jocelyn 14.5 Plt Count 184 MPV 8.6 L Immature Gran % (Auto) 0.2 Neut % (Auto) 84.2 Lymph % (Auto) 7.4 [place] % (Auto) 6.6 Eos % (Auto) 1.3 Baso % (Auto) 0.3 Neut # (Auto) 11.70 H Lymph # (Auto) 1.03 L [place] # (Auto) 0.92 H Eos # (Auto) 0.18 Baso # (Auto) 0.04 Immature Gran # (Auto) 0.03 PT 11.3 INR 1.1 APTT 30 PTT Ratio 1.1 Sodium 134 L Potassium 4.6 Chloride 100 Carbon Dioxide 23 Anion Gap 11 BUN 26 H Creatinine 1.45 H Est Cr Clr Drug Dosing 58.6 eGFR 49.94 BUN/Creatinine Ratio 17.9 Glucose 108 H POC Glucose Calcium 9.2 Magnesium 1.9 Total Bilirubin 0.8 AST 22 ALT 9 Alkaline Phosphatase 71 Total Protein 7.4 Albumin 3.6 Globulin 3.8 Albumin/Globulin Ratio 0.9 POC Stool Occult Blood Positive A Blood Type Cancelled O Positive Antibody Screen Cancelled NEGATIVE 04/14/25 04/14/25 18:19 18:37 WBC RBC Hgb 12.1 L Hct 37.2 L MCV MCH MCHC RDW Std Deviation RDW Coeff of Jocelyn Plt Count MPV Immature Gran % (Auto) Neut % (Auto) Lymph % (Auto) [place] % (Auto) Eos % (Auto) Baso % (Auto) Neut # (Auto) Lymph # (Auto) [place] # (Auto) Eos # (Auto) Baso # (Auto) Immature Gran # (Auto) PT INR APTT PTT Ratio Sodium Potassium Chloride Carbon Dioxide Anion Gap BUN Creatinine Est Cr Clr Drug Dosing eGFR BUN/Creatinine Ratio Glucose POC Glucose 98 Calcium Magnesium Total Bilirubin AST ALT Alkaline Phosphatase Total Protein Albumin Globulin Albumin/Globulin Ratio POC Stool Occult Blood Blood Type Antibody Screen Code Status & VTE Plan Code Status full code PG Care Time/CCT Total # of Minutes Spent Total Time Spent with Patient: Total time spent is greater than 50% in coordination of care (as documented) at patient's floor/unit and/or counseling patient: Coding Level of Care Code 81018 INT INP/OBS CARE 375MIN Diagnoses Wound of gluteal cleft S31.809A Heme positive stool R19.5 Blood per rectum K62.5 Sylvia rash of groin B37.89 Osteoarthritis of right hip M16.11 Ambulatory dysfunction R26.2 DMII (diabetes mellitus, type 2) E11.9 COPD (chronic obstructive pulmonary disease) J44.9 GERD (gastroesophageal reflux disease) K21.9 Anemia D64.9
[2025-04-14] MEDS: BACLOFEN 10 MG TAB PO ONE (14:50)
[2025-04-14] MEDS: ACETAMINOPHEN 500 MG TAB PO STA (14:50)
[2025-04-14 15:13] LABS: Magnesium 1.9 mg/dl (1.7-2.4)
[2025-04-14] MEDS ORDERED: ONDANSETRON INJ 2 MG/ML 2 ML VIAL IV PRN (17:28)
[2025-04-14] MEDS ORDERED: ALBUTEROL HFA 8 GM INHALER INH PRN (17:28)
[2025-04-14] MEDS: SODIUM CHLORIDE 0.9% 1,000 ML IV SCH (17:55)
[2025-04-14 18:42] LABS: Hematocrit (blood only) 37.2 % (42.0-52.0); Hemoglobin 12.1 g/dl (14.0-18.0)
[2025-04-14] MEDS: NYSTATIN POWDER 15GM BTL EXT SCH (19:14)
[2025-04-14] MEDS: INSULIN ASPART PER UNIT CHARGE SC SCH (19:24)
[2025-04-14] MEDS: BACLOFEN 10 MG TAB PO SCH (21:52)
[2025-04-14] MEDS: SIMVASTATIN 20 MG TAB PO SCH (21:53)
[2025-04-15 06:36] LABS: Hematocrit (blood only) 33.7 % (42.0-52.0); Hemoglobin 10.9 g/dl (14.0-18.0); Mean Corpuscular Hemoglobin 28.5 pg (25.0-34.0); Mean Corpuscular Volume 88.2 fL (80.0-100.0); Platelet Count 130 K/uL (130-400); RDW Standard Deviation 46.7 fL (36.4-46.3); Red Blood Count 3.82 M/uL (4.70-6.10); White Blood Count 10.43 K/ul (4.8-10.8)
[2025-04-15 07:09] LABS: Anion Gap 7.0 (3-11); Blood Urea Nitrogen 26.0 mg/dl (6-23); Calcium 8.1 mg/dl (8.6-10.3); Carbon Dioxide 23.0 mmol/L (21-32); Chloride 106.0 mmol/L (98-107); Creatinine Clr Calc Pharmacy 69.6 ml/min; Glucose 91.0 mg/dl (70-99(Fasting)); Potassium 4.1 mmol/L (3.5-5.1); Sodium 136.0 mmol/L (136-145)
[2025-04-15 07:10] LABS: Iron 150.0 mcg/dl (35-175); Total Iron Binding Cap Calc 202.0 mcg/dl (250-450); Transferrin 144.0 mg/dl (200-360); Transferrin (FE) Percent Satur 74.0 % (20-50)
[2025-04-15 07:30] LABS: Ferritin 127.6 ng/ml (8-388)
[2025-04-15 07:31] LABS: Folate (Folic Acid),Ser orPlas 8.3 ng/ml (>5.38)
[2025-04-15 07:32] LABS: Vitamin B12 135.0 pg/ml (180-914)
[2025-04-15] MEDS: FLUTICASONE FUROATE 100MCG 14 PUFFS/INHALER INH SCH (08:02)
[2025-04-15] MEDS: UMECLIDINIUM/VILANTEROL 62.5/25MCG 7 PUFFS/INHALER INH SCH (08:02)
[2025-04-15] MEDS: CYANOCOBALAMIN 1000 MCG/ML VIAL IM SCH (08:28)
[2025-04-15] MEDS ORDERED: NON-FORMULARY MEDICATION (Fluticasone-Umeclidin-Vilanter [Trelegy Ellipta] 100-62.5-25 mcg INH SCH (09:00)
--- NOTE | 2025-04-15 16:17 | Hospitalist Progress Note ---
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 He presented from home via EMS due to 48+ hours of multiple episodes of bright red blood coming from the gluteal/rectal region. #bleeding from rectum vs wilfrid-rectal region with gluteal cleft wound/decubitus ulcers - -suspect that most of the blood seen is from the severe skin breakdown and the gluteal cleft ulceration -NO blood per rectum per the nursing staff -H/H are stable/acceptable -since concern for GI bleed is very, very low allow regular diet -repeat CBC am -appreciate wound care consult and recs for the ulcerations & skin breakdown in the wilfrid-rectal / gluteal-sacral region -kaltostat advised #mild anemia - -Fe studies acceptable -B12 is low - replace IM while here, then PO supplement at d/c -folate wnl #right groin pain - -2018 hip x-rays showed SEVERE, end-stage OA changes of right hip -suspect the groin pain is from end-stage OA -tylenol, pain meds, baclofen prn for pain & spasm -ordered x-rays of right hip but he declined these yesterday #pre-DM - -a1c 5.5% in 01/2025 -DM diet -glucose 108 at presentation today -check BSGs ac/hs -hold metformin #COPD - -no exacerbation at this time -cont usual inhalers including albuterol prn #HTN - -hold diltiazem -hold lasix #h/o adenocarcinoma of the colon - -s/p resection with anastomosis 1998 -last colonoscopy 2016 with 1 polyp only #candidal groin rash - -nystatin powder TID (also place on rectal/buttocks region) #hyperlipidemia - -simvastatin daily #DVT proph - -defer on chemical means for now due to the wilfrid-rectal (and/or rectal) bleeding #ambulatory dysfunction - -PT, OT #recent b/l LE cellulitis - -resolved #B12 def - -B12 level <150 -start B12 IM 1000mcg daily, then at d/c switch to PO supplementation #abdominal distension - -patient denies pain or feeling bloated despite his exam findings -with him being nonambulatory is this a chronic ileus or fecal impaction/severe constipation? -will check KUB x-rays pt's family updated at bedside again today d/w social work tomorrow feasibility of getting hospital bed for home? Admission and Anticipated Discharge Date Admission Date: April 14, 2025 Subjective patient reports his right hip pain is better today not as much "spasm" has had several BMs he is enjoying clear liquids; tolerating them, no emesis, good appetite today denies feeling distended or bloated staff report NO rectal bleeding all bleeding in the gluteal/perineal region has been from skin breakdown family at bedside we discussed getting a hospital bed for home he was receptive to such Review of Systems Review of Systems: cv - no chest pain pulm - no dyspnea GI - no abd pain Physical Exam Physical Exam: gen - laying in bed, good spirits, NAD today neck - no JVD mouth - MM slightly dry but improved heart - borderline tachy, s1 s2, no murmur lungs - CTA b/l abd - distended, tympanic to percussion, BS+, NT ext - severe lymphedema b/l legs and feet, pulses b/l feet 2+ skin - severe stasis changes from just below knees down to ankles -- no change; no cellulitis; numerous nodules/large papules on shins Results & Data Results & Data Vital Signs (Past 12 Hours) Vital Signs Temp Pulse Pulse Resp BP Pulse Ox O2 Del Method 04/15/25 11:16 36.6 C 81 19 147/76 H 92 Room Air 04/15/25 09:26 84 04/15/25 07:20 36.8 C 72 18 123/69 91 Room Air Laboratory Results Laboratory Results - last 48 hr 04/14/25 04/14/25 04/14/25 11:18 11:32 12:27 WBC 13.90 H RBC 4.59 L Hgb 13.2 L Hct 40.3 L MCV 87.8 MCH 28.8 MCHC 32.8 RDW Std Deviation 46.2 RDW Coeff of Jocelyn 14.5 Plt Count 184 MPV 8.6 L Immature Gran % (Auto) 0.2 Neut % (Auto) 84.2 Lymph % (Auto) 7.4 [place] % (Auto) 6.6 Eos % (Auto) 1.3 Baso % (Auto) 0.3 Neut # (Auto) 11.70 H Lymph # (Auto) 1.03 L [place] # (Auto) 0.92 H Eos # (Auto) 0.18 Baso # (Auto) 0.04 Immature Gran # (Auto) 0.03 PT 11.3 INR 1.1 APTT 30 PTT Ratio 1.1 Sodium 134 L Potassium 4.6 Chloride 100 Carbon Dioxide 23 Anion Gap 11 BUN 26 H Creatinine 1.45 H Est Cr Clr Drug Dosing 58.6 eGFR 49.94 BUN/Creatinine Ratio 17.9 Glucose 108 H POC Glucose Calcium 9.2 Magnesium 1.9 Iron TIBC Transferrin Transferrin % Sat Ferritin Total Bilirubin 0.8 AST 22 ALT 9 Alkaline Phosphatase 71 Total Protein 7.4 Albumin 3.6 Globulin 3.8 Albumin/Globulin Ratio 0.9 Vitamin B12 Folate POC Stool Occult Blood Positive A Blood Type Cancelled O Positive Antibody Screen Cancelled NEGATIVE 04/14/25 04/14/25 04/14/25 18:19 18:37 21:54 WBC RBC Hgb 12.1 L Hct 37.2 L MCV MCH MCHC RDW Std Deviation RDW Coeff of Jocelyn Plt Count MPV Immature Gran % (Auto) Neut % (Auto) Lymph % (Auto) [place] % (Auto) Eos % (Auto) Baso % (Auto) Neut # (Auto) Lymph # (Auto) [place] # (Auto) Eos # (Auto) Baso # (Auto) Immature Gran # (Auto) PT INR APTT PTT Ratio Sodium Potassium Chloride Carbon Dioxide Anion Gap BUN Creatinine Est Cr Clr Drug Dosing eGFR BUN/Creatinine Ratio Glucose POC Glucose 98 132 H Calcium Magnesium Iron TIBC Transferrin Transferrin % Sat Ferritin Total Bilirubin AST ALT Alkaline Phosphatase Total Protein Albumin Globulin Albumin/Globulin Ratio Vitamin B12 Folate POC Stool Occult Blood Blood Type Antibody Screen 04/15/25 04/15/25 04/15/25 06:01 07:20 11:00 WBC 10.43 RBC 3.82 L Hgb 10.9 L Hct 33.7 L MCV 88.2 MCH 28.5 MCHC 32.3 RDW Std Deviation 46.7 H RDW Coeff of Jocelyn 14.6 H Plt Count 130 MPV 8.4 L Immature Gran % (Auto) Neut % (Auto) Lymph % (Auto) [place] % (Auto) Eos % (Auto) Baso % (Auto) Neut # (Auto) Lymph # (Auto) [place] # (Auto) Eos # (Auto) Baso # (Auto) Immature Gran # (Auto) PT INR APTT PTT Ratio Sodium 136 Potassium 4.1 Chloride 106 Carbon Dioxide 23 Anion Gap 7 BUN 26 H Creatinine 1.22 Est Cr Clr Drug Dosing 69.6 eGFR 61.44 BUN/Creatinine Ratio 21.3 H Glucose 91 POC Glucose 87 98 Calcium 8.1 L Magnesium Iron 150 TIBC 202 L Transferrin 144 L Transferrin % Sat 74 H Ferritin 127.6 Total Bilirubin AST ALT Alkaline Phosphatase Total Protein Albumin Globulin Albumin/Globulin Ratio Vitamin B12 135 L Folate 8.30 POC Stool Occult Blood Blood Type Antibody Screen PG Care Time/CCT Total # of Minutes Spent Total Time Spent with Patient: Total time spent is greater than 50% in coordination of care (as documented) at patient's floor/unit and/or counseling patient: Coding Level of Care Code 45640 SUB INP/OBS CARE 3/50MIN Diagnoses Wound of gluteal cleft S31.809A Heme positive stool R19.5 Blood per rectum K62.5 Sylvia rash of groin B37.89 Osteoarthritis of right hip M16.11 Ambulatory dysfunction R26.2 DMII (diabetes mellitus, type 2) E11.9 COPD (chronic obstructive pulmonary disease) J44.9 GERD (gastroesophageal reflux disease) K21.9 Anemia D64.9 B12 deficiency E53.8 Decubitus ulcer L89.90
--- NOTE | 2025-04-16 08:17 | XRay Report ---
EXAM: XR hips RANCHO 1v w pelvis CLINICAL HISTORY: Severe b/l hip pain TECHNIQUE: X-ray images of the pelvis were obtained in anteroposterior (AP) and both hips in lateral projections. COMPARISON: No prior studies available for comparison. FINDINGS: Bone Structure: The pelvic bones, including the iliac wings, ischium, pubis, and sacrum, are normal and intact. There is no evidence of fractures or dislocations. Hip Joints: There is a lucency in the neck of the right femur, which is suspicious for a fracture of indeterminate age. There are severe osteoarthritic changes of the right hip joint, demonstrated by femoroacetabular spurring, subarticular sclerosis, and marked joint space narrowing. There are mild osteoarthritic changes of the left hip joint, seen as femoroacetabular spurring and sclerotic change of the acetabular roof, with no significant joint space narrowing. Sclerotic changes of the right femoral head are noted, with no fragmentation or collapse. There is no evidence of hip dislocation or subluxation. Acetabulum: There are no signs of acetabular fracture or dysplasia. Symphysis Pubis: The symphysis pubis is normal and intact. There is no evidence of separation or widening. Sacroiliac Joints: There are degenerative changes in both sacroiliac joints. Soft Tissues: Multiple pelvic metallic clips are noted. A prominent urinary bladder shadow is noted. Additional Findings: No other significant abnormalities are noted. IMPRESSION: 1. Lucency in the neck of the right femur is suspicious for a fracture of indeterminate age. 2. Severe right hip joint osteoarthritis. 3. Mild left hip joint osteoarthritis. 4. Clinical correlation and further evaluation by CT are suggested if indicated. Disclaimer: A subtle bone abnormality or fracture may not be readily apparent on X-rays, thus clinical correlation and further imaging including follow-up CT, MRI, or follow-up X-rays are advised as needed. Electronically signed by Nacho Tan 04-16-2025 08:17 AM
--- NOTE | 2025-04-16 08:20 | XRay Report ---
EXAM: XR KUB/Abdomen 1 view CLINICAL HISTORY: abd distension; impaction? TECHNIQUE: X-ray images of the abdomen were obtained in the frontal position. COMPARISON: X-ray bilateral hips with pelvis performed on the same day was reviewed. FINDINGS: Gas Pattern: Gas-filled, prominent large bowel loops are seen, with the most distended loop measuring up to 8.8 cm in [id number] diameter. On concomitant X-ray of the pelvis performed on the same day, there is evident paucity of rectal air also detected. Surgical clips are also identified in the pelvis, likely in keeping with prior surgery. Bones: Dextroscoliosis is seen in the visualized spine, with multilevel degenerative changes identified, predominantly at the L5-S1 level. IMPRESSION: 1. Imaging findings are raising the concern for large bowel obstruction/fecal impaction as described above. 2. Clinical correlation and workup with a CT scan of the abdomen contrast study is warranted for further evaluation. Electronically signed by Nacho Tan 04-16-2025 08:20 AM
[2025-04-16] MEDS: ACETAMINOPHEN 325 MG TAB PO PRN (08:24)
[2025-04-16 08:42] LABS: Hematocrit (blood only) 33.9 % (42.0-52.0); Hemoglobin 11.0 g/dl (14.0-18.0); Mean Corpuscular Hemoglobin 28.8 pg (25.0-34.0); Mean Corpuscular Volume 88.7 fL (80.0-100.0); Platelet Count 103 K/uL (130-400); RDW Standard Deviation 47.0 fL (36.4-46.3); Red Blood Count 3.82 M/uL (4.70-6.10); White Blood Count 8.68 K/ul (4.8-10.8)
[2025-04-16 08:49] LABS: Anion Gap 8.0 (3-11); Blood Urea Nitrogen 18.0 mg/dl (6-23); Calcium 8.6 mg/dl (8.6-10.3); Carbon Dioxide 23.0 mmol/L (21-32); Chloride 107.0 mmol/L (98-107); Creatinine Clr Calc Pharmacy 91.6 ml/min; Glucose 91.0 mg/dl (70-99(Fasting)); Potassium 4.2 mmol/L (3.5-5.1); Sodium 138.0 mmol/L (136-145)
[2025-04-16] MEDS: OPTIRAY 320 100ml IV ONE (10:20)
--- NOTE | 2025-04-16 10:37 | CT Scan Report ---
RIGHT HIP CT WITHOUT CONTRAST CLINICAL HISTORY: Severe right hip osteoarthritis. Possible right hip fracture. COMPARISON STUDY: CT of the abdomen and pelvis May 23, 2023. Pelvis and hip radiographs [id number] at 7:04 AM. TECHNIQUE: Axial images of the right hip were obtained without IV contrast. Sagittal and coronal refo rmats were viewed. A dose lowering technique was utilized adhering to the principles of ALARA. FINDINGS: Incidental note is made of moderate distention of the bladder. There are no fractures withi n the right hip. The possible right femoral neck fracture on radiographs from earlier today was artif actual. Severe joint space narrowing with extensive osteophytosis is noted. There is associated hector ening of the right femoral head. There is no evidence for avascular necrosis. No mass or fluid collec tion adjacent to the right hip is present. There is no right inguinal lymphadenopathy. There are no f ractures within visualized portions of the pelvis. The right sacroiliac joint is partially ankylosed. IMPRESSION: 1. No fractures within the right hip. The possible right femoral neck fracture on radiographs was art ifactual. 2. Severe right hip osteoarthritis. ACT 112: Negative or not required by law. Electronically signed by: Fortino Martin M.D. 04/16/2025 10:34 AM
--- NOTE | 2025-04-16 10:42 | CT Scan Report ---
CT SCAN OF THE ABDOMEN AND PELVIS WITH IV CONTRAST CLINICAL HISTORY: Abdominal distension. COMPARISON STUDY: Abdominal CT scans dated 01/24/2025 and 05/23/2023. TECHNIQUE: Following the IV administration of 93 cc of Optiray 320, CT scan of the abdomen and pelvi s is performed from the lung bases to the proximal femora. Images are reviewed in the axial, sagittal , and coronal planes. IV contrast was administered without complication. A dose lowering technique wa s utilized adhering to the principles of ALARA. FINDINGS: Lung bases: The heart is normal in size and without pericardial effusion. The coronary arteries and m itral annulus are densely calcified. Emphysema is suspected. Right middle lobe pulmonary nodules ashley uring up to 4 mm seen on images #5 and #23 are unchanged. There are trace pleural effusions with depe ndent atelectasis. Liver: The contrast-enhanced liver is enlarged, measuring 19 cm in length. Attenuation is diminished indicating steatosis. There is no intrahepatic biliary ductal dilatation. The hepatic veins and port al veins are patent. Gallbladder: Unremarkable. Spleen: Normal in size and attenuation. Pancreas: Unremarkable. Adrenal glands: Unremarkable. Kidneys: The contrast enhanced kidneys demonstrate mild cortical atrophy and are without hydronephros is. The kidneys enhance symmetrically. A 2.9 cm cyst is noted in the right upper pole. Abdominal vasculature: The abdominal aorta is normal in course and caliber noting moderate to advance d atherosclerotic calcification. Bowel: There is mild to moderate clonic fecal retention. No bowel obstruction is seen. There are wilfrid rectal surgical clips. The appendix is well-visualized and normal. Peritoneum: There is no intraperitoneal free air or abdominal ascites. There is a fat-containing umbi lical hernia. Lymphadenopathy: Mildly enlarged retroperitoneal and iliac chain lymph nodes are similar appearance t o studies dating back to 2022. A right common iliac chain on image #232 measures 1.4 cm in short axis . The right external iliac chain node on image #304 measures 1.7 cm short axis. Pelvic viscera: The prostate gland is mildly enlarged and heterogeneous. The bladder is distended, an d the wall appears thickened and slightly trabeculated indicating chronic outlet obstruction. Skeletal structures: The skeletal structures are osteopenic. There is moderate to advanced lumbosacra l spondylosis as well as scoliosis. No lytic or blastic lesions are seen. Degenerative change and par tial fusion is noted in the sacroiliac joints. Arthritic change is seen in the hips. This is severe o n the right. IMPRESSION: 1. No acute infectious or inflammatory findings are identified in the abdomen or pelvis. 2. Mild to moderate colonic fecal retention. 3. Significant bladder distention. 4. Advanced coronary artery atherosclerosis. 5. Trace pleural effusions. 6. Mildly enlarged retroperitoneal and iliac chain lymph nodes are indeterminant, and similar in [facility] to studies dated back to 2022. 7. Additional findings as above. ACT 112: Negative or not required by law. Electronically signed by: Sree Diana M.D. 04/16/2025 10:41 AM
--- NOTE | 2025-04-16 12:48 | Electrocardiogram Report ---
Test Reason : Blood Pressure : */* mmHG Vent. Rate : 99 BPM Atrial Rate : 100 BPM P-R Int : 156 ms QRS Dur : 116 ms QT Int : 378 ms P-R-T Axes : 68 23 48 degrees QTcB Int : 485 ms Normal sinus rhythm Incomplete right bundle branch block Possible Inferior infarct , age undetermined QTcB >= 480 msec Abnormal ECG When compared with ECG of 02-Apr-2025 17:28, Borderline criteria for Inferior infarct are now Present Confirmed by Harlan Mcdonnell ([id number]) on 04/16/2025 12:48:25 PM Referred By: REFERRED SELF Confirmed By: Harlan Mcdonnell
[2025-04-16 12:58] LABS: Appearance Urine Clear (Clear); Glucose Urine UA Negative (Negative)
--- NOTE | 2025-04-16 14:36 | Hospitalist Progress Note ---
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 He presented from home via EMS due to 48+ hours of multiple episodes of bright red blood coming from the gluteal/rectal region. #bleeding from rectum vs wilfrid-rectal region with gluteal cleft wound/decubitus ulcers - -suspect that most of the blood seen at home was from the severe skin breakdown and the gluteal cleft ulcerations -NO blood per rectum per the nursing staff since admission -H/H are stable/acceptable -little to no concern for lower GI bleed -tolerating regular diet -repeat CBC am -appreciate wound care consult and recs for the ulcerations & skin breakdown in the wilfrid-rectal / gluteal-sacral region -kaltostat advised -patient is in desperate need of off-loading his gluteal/sacral region to allow healing of the multiple bleeding ulcerations -he is largely chair/recliner-bound at home, and his recliner does NOT allow him to lay on his side to allow proper positioning/healing -only thing that will allow healing is a hospital bed; pt & family agree -his ongoing sacral/gluteal/wilfrid-rectal ulcers requires positioning of the body in ways not feasible with an ordinary bed -hospital bed will allow proper body positioning to alleviate pain in the gluteal/wilfrid-rectal region -he would also benefit from the head of the bed being elevated more than 30 degrees which will help with his breathing and in light of his morbid obesity #mild anemia - -Fe studies acceptable -B12 is low - replace IM while here, then PO supplement at d/c -folate wnl -check B1 level am #right groin pain - -2018 hip x-rays showed SEVERE, end-stage OA changes of right hip -suspect the groin pain is from end-stage OA -tylenol, pain meds, baclofen TID for pain & spasm -obtained R hip x-rays today; there was severe OA as expected but ?of a fracture; then obtained CT R hip - NO fracture seen #pre-DM - -a1c 5.5% in 01/2025 -DM diet -glucose 108 at presentation today -check BSGs ac/hs -hold metformin #COPD - -no exacerbation at this time -cont usual inhalers including albuterol prn #HTN - -can resume diltiazem but at lower dose of 120mg daily -hold lasix #h/o adenocarcinoma of the colon - -s/p resection with anastomosis 1998 -last colonoscopy 2015 with 1 polyp only #candidal groin rash - -nystatin powder TID (also place on rectal/buttocks region) #hyperlipidemia - -change simvastatin daily to lipitor daily (due to simvastatin/diltiazem interaction) -check CPK am -LFTs wnl #DVT proph - -since bleeding has resolved start lovenox 40mg daily #ambulatory dysfunction - -PT, OT #recent b/l LE cellulitis - -resolved #B12 def - -B12 level <150 -start B12 IM 1000mcg daily, then at d/c switch to PO supplementation #abdominal distension - -x-rays with questionable large bowel ileus vs obstruction -obtained CT a/p - no obstruction seen, although he does have colonic excess gas -he is having copious loose stool --> check a c diff #Urinary retention - -either 2nd to BPH vs neurogenic bladder vs combo of factors -ua not suspicious for UTI -cont to check PVRs -if PVRs remain >350ml then place gee -consider flomax if BP will allow pt's family updated at bedside yesterday script for hospital bed completed social work assisting with getting this change observation to full admit status Admission and Anticipated Discharge Date Admission Date: April 14, 2025 Subjective patient was sitting in chair during the visit he is having multiple loose stools and copious flatus no abd pain no vomiting eating ok denies any dyspnea NO rectal bleeding per staff right hip pain relatively controlled today he is aware that we have ordered him hospital bed for home and it won't be delivered today having issues with urinary retention PVRs have been 400-500cc needed straight cathing today for such when the PVR was high he did NOT have a sensation of needing to void Review of Systems Review of Systems: gen - no fevers cv - no cp pulm - no dyspnea Physical Exam Physical Exam: gen - sitting in chair, looks good today neck - no JVD mouth - MMM heart - borderline tachy, s1 s2, no murmur lungs - CTA b/l abd - distension resolved; tympany resolved; soft, BS+, NT ext - severe lymphedema b/l legs and feet, pulses b/l feet 2+ skin - severe stasis changes from just below knees down to ankles -- no change; no cellulitis; numerous nodules/large papules on shins Results & Data Results & Data Vital Signs (Past 12 Hours) Vital Signs Temp Pulse Resp BP Pulse Ox O2 Del Method 04/16/25 12:43 36.7 C 107 H 19 110/66 91 Room Air 04/16/25 08:09 36.2 C L 101 H 18 111/77 93 Room Air 04/16/25 03:04 36.7 C 104 H 20 129/70 92 Room Air Laboratory Results Laboratory Results - last 24 hr 04/16/25 04/16/25 04/16/25 07:33 11:37 12:38 WBC 8.68 RBC 3.82 L Hgb 11.0 L Hct 33.9 L MCV 88.7 MCH 28.8 MCHC 32.4 RDW Std Deviation 47.0 H RDW Coeff of Jocelyn 14.6 H Plt Count 103 L MPV 10.0 Sodium 138 Potassium 4.2 Chloride 107 Carbon Dioxide 23 Anion Gap 8 BUN 18 Creatinine 0.93 Est Cr Clr Drug Dosing 91.6 eGFR 85.10 BUN/Creatinine Ratio 19.4 Glucose 91 POC Glucose 106 H Calcium 8.6 Urine Color Yellow Urine Appearance Clear Urine pH 5.5 Ur Specific [place] 1.009 Urine Protein Negative Urine Glucose (UA) Negative Urine Ketones Negative Urine Blood Negative Urine Nitrite Negative Urine Bilirubin Negative Urine Urobilinogen Negative Ur Leukocyte Esterase Negative Diagnostic Findings Hip/Pelvis X-Ray 04/16/25 07:15 EXAM: XR hips RANCHO 1v w pelvis CLINICAL HISTORY: Severe b/l hip pain TECHNIQUE: X-ray images of the pelvis were obtained in anteroposterior (AP) and both hips in lateral projections. COMPARISON: No prior studies available for comparison. FINDINGS: Bone Structure: The pelvic bones, including the iliac wings, ischium, pubis, and sacrum, are normal and intact. There is no evidence of fractures or dislocations. Hip Joints: There is a lucency in the neck of the right femur, which is suspicious for a fracture of indeterminate age. There are severe osteoarthritic changes of the right hip joint, demonstrated by femoroacetabular spurring, subarticular sclerosis, and marked joint space narrowing. There are mild osteoarthritic changes of the left hip joint, seen as femoroacetabular spurring and sclerotic change of the acetabular roof, with no significant joint space narrowing. Sclerotic changes of the right femoral head are noted, with no fragmentation or collapse. There is no evidence of hip dislocation or subluxation. Acetabulum: There are no signs of acetabular fracture or dysplasia. Symphysis Pubis: The symphysis pubis is normal and intact. There is no evidence of separation or widening. Sacroiliac Joints: There are degenerative changes in both sacroiliac joints. Soft Tissues: Multiple pelvic metallic clips are noted. A prominent urinary bladder shadow is noted. Additional Findings: No other significant abnormalities are noted. IMPRESSION: 1. Lucency in the neck of the right femur is suspicious for a fracture of indeterminate age. 2. Severe right hip joint osteoarthritis. 3. Mild left hip joint osteoarthritis. 4. Clinical correlation and further evaluation by CT are suggested if indicated. Disclaimer: A subtle bone abnormality or fracture may not be readily apparent on X-rays, thus clinical correlation and further imaging including follow-up CT, MRI, or follow-up X-rays are advised as needed. Electronically signed by Nacho Tan 04-16-2025 08:17 AM KUB X-Ray 04/16/25 07:15 EXAM: XR KUB/Abdomen 1 view CLINICAL HISTORY: abd distension; impaction? TECHNIQUE: X-ray images of the abdomen were obtained in the frontal position. COMPARISON: X-ray bilateral hips with pelvis performed on the same day was reviewed. FINDINGS: Gas Pattern: Gas-filled, prominent large bowel loops are seen, with the most distended loop measuring up to 8.8 cm in [id number] diameter. On concomitant X-ray of the pelvis performed on the same day, there is evident paucity of rectal air also detected. Surgical clips are also identified in the pelvis, likely in keeping with prior surgery. Bones: Dextroscoliosis is seen in the visualized spine, with multilevel degenerative changes identified, predominantly at the L5-S1 level. IMPRESSION: 1. Imaging findings are raising the concern for large bowel obstruction/fecal impaction as described above. 2. Clinical correlation and workup with a CT scan of the abdomen contrast study is warranted for further evaluation. Electronically signed by Nacho Tan 04-16-2025 08:20 AM Abdomen/Pelvis CT 04/16/25 09:32 CT SCAN OF THE ABDOMEN AND PELVIS WITH IV CONTRAST CLINICAL HISTORY: Abdominal distension. COMPARISON STUDY: Abdominal CT scans dated 01/24/2025 and 05/23/2023. TECHNIQUE: Following the IV administration of 93 cc of Optiray 320, CT scan of the abdomen and pelvis is performed from the lung bases to the proximal femora. Images are reviewed in the axial, sagittal, and coronal planes. IV contrast was administered without complication. A dose lowering technique was utilized adhering to the principles of ALARA. FINDINGS: Lung bases: The heart is normal in size and without pericardial effusion. The coronary arteries and mitral annulus are densely calcified. Emphysema is suspected. Right middle lobe pulmonary nodules measuring up to 4 mm seen on images #5 and #23 are unchanged. There are trace pleural effusions with dependent atelectasis. Liver: The contrast-enhanced liver is enlarged, measuring 19 cm in length. Attenuation is diminished indicating steatosis. There is no intrahepatic biliary ductal dilatation. The hepatic veins and portal veins are patent. Gallbladder: Unremarkable. Spleen: Normal in size and attenuation. Pancreas: Unremarkable. Adrenal glands: Unremarkable. Kidneys: The contrast enhanced kidneys demonstrate mild cortical atrophy and are without hydronephrosis. The kidneys enhance symmetrically. A 2.9 cm cyst is noted in the right upper pole. Abdominal vasculature: The abdominal aorta is normal in course and caliber noting moderate to advanced atherosclerotic calcification. Bowel: There is mild to moderate clonic fecal retention. No bowel obstruction is seen. There are perirectal surgical clips. The appendix is well-visualized and normal. Peritoneum: There is no intraperitoneal free air or abdominal ascites. There is a fat-containing umbilical hernia. Lymphadenopathy: Mildly enlarged retroperitoneal and iliac chain lymph nodes are similar appearance to studies dating back to 2022. A right common iliac chain on image #232 measures 1.4 cm in short axis. The right external iliac chain node on image #304 measures 1.7 cm short axis. Pelvic viscera: The prostate gland is mildly enlarged and heterogeneous. The bladder is distended, and the wall appears thickened and slightly trabeculated indicating chronic outlet obstruction. Skeletal structures: The skeletal structures are osteopenic. There is moderate to advanced lumbosacral spondylosis as well as scoliosis. No lytic or blastic lesions are seen. Degenerative change and partial fusion is noted in the sacroiliac joints. Arthritic change is seen in the hips. This is severe on the right. IMPRESSION: 1. No acute infectious or inflammatory findings are identified in the abdomen or pelvis. 2. Mild to moderate colonic fecal retention. 3. Significant bladder distention. 4. Advanced coronary artery atherosclerosis. 5. Trace pleural effusions. 6. Mildly enlarged retroperitoneal and iliac chain lymph nodes are indeterminant, and similar in appearance to studies dated back to 2022. 7. Additional findings as above. ACT 112: Negative or not required by law. Electronically signed by: Sree Diana M.D. 04/16/2025 10:[address] 04/16/25 09:[address] WITHOUT CONTRAST CLINICAL HISTORY: Severe right hip osteoarthritis. Possible right hip fracture. COMPARISON STUDY: CT of the abdomen and pelvis May 23, 2023. Pelvis and hip radiographs April 16, 2025 at 7:04 AM. TECHNIQUE: Axial images of the right hip were obtained without IV contrast. Sagittal and coronal reformats were viewed. A dose lowering technique was utilized adhering to the principles of ALARA. FINDINGS: Incidental note is made of moderate distention of the bladder. There are no fractures within the right hip. The possible right femoral neck fracture on radiographs from earlier today was artifactual. Severe joint space narrowing with extensive osteophytosis is noted. There is associated flattening of the right femoral head. There is no evidence for avascular necrosis. No mass or fluid collection adjacent to the right hip is present. There is no right inguinal lymphadenopathy. There are no fractures within visualized portions of the pelvis. The right sacroiliac joint is partially ankylosed. IMPRESSION: 1. No fractures within the right hip. The possible right femoral neck fracture on radiographs was artifactual. 2. Severe right hip osteoarthritis. ACT 112: Negative or not required by law. Electronically signed by: Fortino Martin M.D. 04/16/2025 10:34 AM PG Care Time/CCT Total # of Minutes Spent Total Time Spent with Patient: Total time spent is greater than 50% in coordination of care (as documented) at patient's floor/unit and/or counseling patient: Coding Level of Care Code 21035 SUB INP/OBS CARE 3/50MIN Diagnoses Wound of gluteal cleft S31.809A Heme positive stool R19.5 Blood per rectum K62.5 Sylvia rash of groin B37.89 Osteoarthritis of right hip M16.11 Ambulatory dysfunction R26.2 DMII (diabetes mellitus, type 2) E11.9 COPD (chronic obstructive pulmonary disease) J44.9 GERD (gastroesophageal reflux disease) K21.9 Anemia D64.9 B12 deficiency E53.8 Decubitus ulcer L89.90
[2025-04-16] MEDS: ENOXAPARIN INJ 40 MG/0.4 ML SYR SQ ONE (15:33)
[2025-04-16] MEDS: HYDROCODONE/ACETAMINOPHEN 7.5/325MG TAB PO PRN (15:40)
[2025-04-16] MEDS: HYDROmorphone INJ 0.5 MG/0.5 ML SYR IV PRN (17:49)
[2025-04-16] MEDS: ATORVASTATIN 20 MG TAB PO SCH (20:17)
[2025-04-17 06:32] LABS: Hematocrit (blood only) 33.9 % (42.0-52.0); Hemoglobin 10.8 g/dl (14.0-18.0); Mean Corpuscular Hemoglobin 28.6 pg (25.0-34.0); Mean Corpuscular Volume 89.7 fL (80.0-100.0); Platelet Count 102 K/uL (130-400); RDW Standard Deviation 47.6 fL (36.4-46.3); Red Blood Count 3.78 M/uL (4.70-6.10); White Blood Count 8.85 K/ul (4.8-10.8)
[2025-04-17 07:01] LABS: Anion Gap 9.0 (3-11); Blood Urea Nitrogen 17.0 mg/dl (6-23); Calcium 8.4 mg/dl (8.6-10.3); Carbon Dioxide 25.0 mmol/L (21-32); Chloride 104.0 mmol/L (98-107); Creatine Kinase 22.0 U/L (30-223); Creatinine Clr Calc Pharmacy 88.0 ml/min; Glucose 101.0 mg/dl (70-99(Fasting)); Potassium 4.0 mmol/L (3.5-5.1); Sodium 138.0 mmol/L (136-145)
[2025-04-17] MEDS: ENOXAPARIN INJ 40 MG/0.4 ML SYR SQ SCH (09:34)
[2025-04-17] MEDS: THIAMINE HCL 100 MG TAB PO SCH (09:34)
[2025-04-17] MEDS: ERGOCALCIFEROL 1250 MCG (50,000 UNITS) CAP PO ONE (09:35)
--- NOTE | 2025-04-17 15:44 | Hospitalist Progress Note ---
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 He presented from home via EMS due to 48+ hours of multiple episodes of bright red blood coming from the gluteal/rectal region. #bleeding from rectum vs wilfrid-rectal region with gluteal cleft wound/decubitus ulcers - -suspect that most of the blood seen at home was from the severe skin breakdown and the gluteal cleft ulcerations -NO blood per rectum per the nursing staff since admission -H/H remain stable/acceptable -little to no concern for lower GI bleed -tolerating regular diet -appreciate wound care consult and recs for the ulcerations & skin breakdown in the wilfrid-rectal / gluteal-sacral region -kaltostat advised -patient is in desperate need of off-loading his gluteal/sacral region to allow healing of the multiple bleeding ulcerations -he is largely chair/recliner-bound at home, and his recliner does NOT allow him to lay on his side to allow proper positioning/healing -only thing that will allow healing is a hospital bed; pt & family agree -his ongoing sacral/gluteal/wilfrid-rectal ulcers requires positioning of the body in ways not feasible with an ordinary bed -hospital bed will allow proper body positioning to alleviate pain in the gluteal/wilfrid-rectal region -he would also benefit from the head of the bed being elevated more than 30 degrees which will help with his breathing and in light of his morbid obesity #mild anemia - -Fe studies acceptable -B12 is low at 135 - replace IM daily while here, then PO supplement at d/c -folate wnl -check B1 level am - pending #right groin pain - -2018 hip x-rays showed SEVERE, end-stage OA changes of right hip -suspect the groin pain is from end-stage OA -tylenol, pain meds, baclofen TID for pain & spasm -obtained R hip x-rays; there was severe OA as expected but ?of a fracture; then obtained CT R hip - NO fracture seen #pre-DM - -a1c 5.5% in 01/2025 -DM diet -BSGs ac/hs remain acceptable -hold metformin #COPD - -no exacerbation at this time -cont usual inhalers including albuterol prn #HTN - -resumed diltiazem but at lower dose of 120mg daily -hold lasix #h/o adenocarcinoma of the colon - -s/p resection with anastomosis 1998 -last colonoscopy 2016 with 1 polyp only #candidal groin rash - -nystatin powder TID (also place on rectal/buttocks region) #hyperlipidemia - -change simvastatin daily to lipitor daily (due to simvastatin/diltiazem interaction) -checked CPK - wnl -LFTs wnl #DVT proph - -lovenox 40mg daily #ambulatory dysfunction - -PT, OT #recent b/l LE cellulitis - -resolved #B12 def - -B12 level <150 -B12 IM 1000mcg daily, then at d/c switch to PO supplementation #abdominal distension - -x-rays with questionable large bowel ileus vs obstruction -obtained CT a/p - no obstruction seen, although he does have colonic excess gas -if diarrhea persists then check a c diff #Urinary retention - -either 2nd to BPH vs neurogenic bladder vs combo of factors -ua not suspicious for UTI -cont to check PVRs -if PVRs remain >350ml then place gee -consider flomax daily #vitamin D def - -25 [place] vit D level undetectable -ergocalciferol 87942 units weekly x 8 weeks #stasis dermatitis b/l legs - -eucerin cream BID + prn -topical steroid BID in thin amounts awaiting delivery of hospital bed to his house on Saturday then can d/c home at that time Admission and Anticipated Discharge Date Admission Date: April 16, 2025 Subjective no events overnight he was sitting in recliner watching TV he stated "I feel so much better" eating well drinking well pain in R hip much better still with some mild pain in gluteal region from his ulcers denies any new complaints stools still loose but less frequent Review of Systems Review of Systems: CV - no chest pain pulm - no dyspnea at rest GI - no nausea/emesis - using condom catheter Physical Exam 2 Physical Exam: gen - sitting in recliner chair, looks well neck - no JVD mouth - MMM heart - RRR, s1 s2, no murmur lungs - CTA b/l abd - soft, BS+, NT, ND ext - severe lymphedema b/l legs and feet, pulses b/l feet 2+ skin - severe stasis changes from just below knees down to ankles -- no change; no cellulitis; numerous nodules/large papules on shins Results & Data Results & Data Vital Signs (Past 12 Hours) Vital Signs Temp Pulse Pulse Resp BP Pulse Ox O2 Del Method 04/17/25 12:43 36.8 C 88 18 111/59 L 92 Room Air 04/17/25 09:52 Nasal Cannula 04/17/25 08:12 36.8 C 87 18 115/68 92 Nasal Cannula 04/17/25 07:23 97 H O2 Flow Rate 04/17/25 12:43 04/17/25 09:52 2 04/17/25 08:12 2 04/17/25 07:23 Laboratory Results Laboratory Results - last 48 hr 04/16/25 04/16/25 04/16/25 11:37 12:38 16:23 WBC RBC Hgb Hct MCV MCH MCHC RDW Std Deviation RDW Coeff of Jocelyn Plt Count MPV Sodium Potassium Chloride Carbon Dioxide Anion Gap BUN Creatinine Est Cr Clr Drug Dosing eGFR BUN/Creatinine Ratio Glucose POC Glucose 106 H 126 H Calcium Total Creatine Kinase 25-OH Vitamin D Total Urine Color Yellow Urine Appearance Clear Urine pH 5.5 Ur Specific Henning 1.009 Urine Protein Negative Urine Glucose (UA) Negative Urine Ketones Negative Urine Blood Negative Urine Nitrite Negative Urine Bilirubin Negative Urine Urobilinogen Negative Ur Leukocyte Esterase Negative 04/16/25 04/17/25 04/17/25 19:46 06:10 07:16 WBC 8.85 RBC 3.78 L Hgb 10.8 L Hct 33.9 L MCV 89.7 MCH 28.6 MCHC 31.9 L RDW Std Deviation 47.6 H RDW Coeff of Jocelyn 14.6 H Plt Count 102 L MPV 8.4 L Sodium 138 Potassium 4.0 Chloride 104 Carbon Dioxide 25 Anion Gap 9 BUN 17 Creatinine 0.97 Est Cr Clr Drug Dosing 88.0 eGFR 80.91 BUN/Creatinine Ratio 17.5 Glucose 101 H POC Glucose 138 H 98 Calcium 8.4 L Total Creatine Kinase 22 L 25-OH Vitamin D Total < 7.0 L PG Care Time/CCT Total # of Minutes Spent Total Time Spent with Patient: Total time spent is greater than 50% in coordination of care (as documented) at patient's floor/unit and/or counseling patient: Coding Level of Care Code 35100 SUB INP/OBS CARE 2/35MIN Diagnoses Wound of gluteal cleft S31.809A Heme positive stool R19.5 Blood per rectum K62.5 Sylvia rash of groin B37.89 Osteoarthritis of right hip M16.11 Ambulatory dysfunction R26.2 DMII (diabetes mellitus, type 2) E11.9 COPD (chronic obstructive pulmonary disease) J44.9 GERD (gastroesophageal reflux disease) K21.9 Anemia D64.9 B12 deficiency E53.8 Decubitus ulcer L89.90 Stasis dermatitis of both legs I87.2 Vitamin D deficiency E55.9
[2025-04-17] MEDS: diphenhydrAMINE Capsule 25 MG CAP PO PRN (23:26)
[2025-04-18 07:02] LABS: Hematocrit (blood only) 30.9 % (42.0-52.0); Hemoglobin 10.1 g/dl (14.0-18.0); Mean Corpuscular Hemoglobin 29.0 pg (25.0-34.0); Mean Corpuscular Volume 88.8 fL (80.0-100.0); Platelet Count 115 K/uL (130-400); RDW Standard Deviation 47.2 fL (36.4-46.3); Red Blood Count 3.48 M/uL (4.70-6.10); White Blood Count 8.33 K/ul (4.8-10.8)
[2025-04-18] MEDS: HYDROCORTISONE 2.5% CR 30 GM TUBE EXT SCH (10:34)
[2025-04-18] MEDS: TAMSULOSIN HCL 0.4 MG CAP PO SCH (10:34)
[2025-04-18] MEDS: EUCERIN CR 120 GM JAR EXT SCH (10:35)
[2025-04-18] MEDS ORDERED: BACLOFEN 10 MG TAB PO PRN (19:14)
--- NOTE | 2025-04-18 19:14 | Hospitalist Progress Note ---
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 He presented from home via EMS due to 48+ hours of multiple episodes of bright red blood coming from the gluteal/rectal region. #bleeding from rectum vs wilfrid-rectal region with gluteal cleft wound/decubitus ulcers - -suspect that most of the blood seen at home was from the severe skin breakdown and the gluteal cleft ulcerations -NO blood per rectum per the nursing staff since admission; stool has been brown -H/H remain stable/acceptable -tolerating regular diet -appreciate wound care consult and recs for the ulcerations & skin breakdown in the wilfrid-rectal / gluteal-sacral region -kaltostat advised -patient is in desperate need of off-loading his gluteal/sacral region to allow healing of the multiple bleeding ulcerations -he is largely chair/recliner-bound at home, and his recliner does NOT allow him to lay on his side to allow proper positioning/healing -only thing that will allow healing is a hospital bed; pt & family agree -his ongoing sacral/gluteal/wilfrid-rectal ulcers requires positioning of the body in ways not feasible with an ordinary bed -hospital bed will allow proper body positioning to alleviate pain in the gluteal/wilfrid-rectal region -he would also benefit from the head of the bed being elevated more than 30 degrees which will help with his breathing and in light of his morbid obesity #mild anemia - -Fe studies acceptable -B12 is low at 135 - replace IM daily while here, then PO supplement at d/c -folate wnl -check B1 level am - pending; on empiric thiamine 200mg BID while awaiting level #right groin pain - -2018 hip x-rays showed SEVERE, end-stage OA changes of right hip -suspect the groin pain is from end-stage OA -tylenol, pain meds, baclofen TID for pain & spasm -obtained R hip x-rays; there was severe OA as expected but ?of a fracture; then obtained CT R hip - NO fracture seen #pre-DM - -a1c 5.5% in 01/2025 -DM diet -BSGs ac/hs remain acceptable -hold metformin #COPD - -no exacerbation at this time -cont usual inhalers including albuterol prn #HTN - -cont diltiazem but at lower dose of 120mg daily -hold lasix for now; maybe resume tomorrow if AM labs are acceptable #h/o adenocarcinoma of the colon - -s/p resection with anastomosis 1998 -last colonoscopy 2015 with 1 polyp only #candidal groin rash - -nystatin powder TID (also place on rectal/buttocks region) #hyperlipidemia - -change simvastatin daily to lipitor daily (due to simvastatin/diltiazem interaction) -checked CPK - wnl -LFTs wnl #DVT proph - -lovenox 40mg daily #ambulatory dysfunction - -PT, OT #recent b/l LE cellulitis - -resolved #B12 def - -B12 level <150 -B12 IM 1000mcg daily, then at d/c switch to PO supplementation #abdominal distension - -x-rays with questionable large bowel ileus vs obstruction -obtained CT a/p - no obstruction seen, although he does have colonic excess gas -if diarrhea recurs - check c diff #Urinary retention - -either 2nd to BPH vs neurogenic bladder vs combo of factors -ua not suspicious for UTI, urine cx neg -gee placed last pm due to retention -leave gee in at discharge -start flomax daily for presumed BPH -patient already stating today he will not f/u with [facility] Urology post-d/c --- "I don't go to doctor offices" #vitamin D def - -25 [place] vit D level undetectable -ergocalciferol 01976 units weekly x 8 weeks #stasis dermatitis b/l legs - -eucerin cream BID + prn -topical steroid BID in thin amounts awaiting delivery of hospital bed to his house then can d/c home Admission and Anticipated Discharge Date Admission Date: April 16, 2025 Subjective overnight had bladder scans of 500cc+ he had been having bladder retention earlier in the stay requiring I/O straight cath a gee was placed due to the retention denies any complaints for me he is anxious about the details surrounding his d/c to home, hospital bed, etc. but otherwise feels good R hip pain is controlled no dyspnea tele - short bursts of PAT only (seconds in duration) Review of Systems Review of Systems: CV - edema is at baseline; no chest pain pulm - no dyspnea, no cough GI - no abd pain, no N/V; loose stools have resolved no rectal bleeding Physical Exam Physical Exam: gen - sitting in recliner chair, a little anxious today neck - no JVD mouth - MMM heart - RRR, s1 s2, no murmur lungs - CTA b/l abd - soft, BS+, NT, ND ext - severe lymphedema b/l legs and feet - no change, pulses b/l feet 2+ skin - severe stasis changes from just below knees down to ankles -- no change; no cellulitis; numerous nodules/large papules on shins - unchanged psych - a/o x 3 Results & Data Results & Data Vital Signs (Past 12 Hours) Vital Signs Temp Pulse Pulse Resp BP Pulse Ox O2 Del Method 04/18/25 12:53 92 H 04/18/25 12:11 36.8 C 95 H 12 95/55 L 94 Room Air 04/18/25 08:49 36.7 C 69 18 110/70 94 Room Air Laboratory Results Laboratory Results - last 48 hr 04/17/25 04/17/25 04/18/25 16:13 20:00 06:31 WBC 8.33 RBC 3.48 L Hgb 10.1 L Hct 30.9 L MCV 88.8 MCH 29.0 MCHC 32.7 RDW Std Deviation 47.2 H RDW Coeff of Jocelyn 14.6 H Plt Count 115 L MPV 9.0 L VBG pH VBG pCO2 VBG pO2 VBG HCO3 VBG O2 Saturation VBG Base Excess Sodium Potassium Chloride Carbon Dioxide Anion Gap BUN Creatinine Est Cr Clr Drug Dosing eGFR BUN/Creatinine Ratio Glucose POC Glucose 117 H 149 H Calcium Magnesium 04/18/25 04/18/2504/18/25 07:23 11:17 16:35 WBC RBC Hgb Hct MCV MCH MCHC RDW Std Deviation RDW Coeff of Jocelyn Plt Count MPV VBG pH VBG pCO2 VBG pO2 VBG HCO3 VBG O2 Saturation VBG Base Excess Sodium Potassium Chloride Carbon Dioxide Anion Gap BUN Creatinine Est Cr Clr Drug Dosing eGFR BUN/Creatinine Ratio Glucose POC Glucose 100 H 98 97 Calcium Magnesium PG Care Time/CCT Total # of Minutes Spent Total Time Spent with Patient: Total time spent is greater than 50% in coordination of care (as documented) at patient's floor/unit and/or counseling patient: Coding Level of Care Code 40671 SUB INP/OBS CARE 35MIN Diagnoses Wound of gluteal cleft S31.809A Heme positive stool R19.5 Blood per rectum K62.5 Sylvia rash of groin B37.89 Osteoarthritis of right hip M16.11 Ambulatory dysfunction R26.2 DMII (diabetes mellitus, type 2) E11.9 COPD (chronic obstructive pulmonary disease) J44.9 GERD (gastroesophageal reflux disease) K21.9 Anemia D64.9 B12 deficiency E53.8 Decubitus ulcer L89.90 Stasis dermatitis of both legs I87.2 Vitamin D deficiency E55.9
[2025-04-19 06:14] LABS: Base Excess VBG 2.5 mEq/L; HCO3 VBG 28 mmol/L; Oxygen Saturation VBG 95.9 %; PCO2 VBG 45 mmHg (38-50); PO2 VBG 68 mmHg; pH VBG 7.40 (7.36-7.41)
[2025-04-19 06:23] LABS: Hematocrit (blood only) 29.4 % (42.0-52.0); Hemoglobin 9.4 g/dl (14.0-18.0); Mean Corpuscular Hemoglobin 28.7 pg (25.0-34.0); Mean Corpuscular Volume 89.9 fL (80.0-100.0); Platelet Count 113 K/uL (130-400); RDW Standard Deviation 47.5 fL (36.4-46.3); Red Blood Count 3.27 M/uL (4.70-6.10); White Blood Count 9.01 K/ul (4.8-10.8)
[2025-04-19 06:47] LABS: Anion Gap 6.0 (3-11); Blood Urea Nitrogen 13.0 mg/dl (6-23); Calcium 8.2 mg/dl (8.6-10.3); Carbon Dioxide 26.0 mmol/L (21-32); Chloride 107.0 mmol/L (98-107); Creatinine Clr Calc Pharmacy 97.0 ml/min; Glucose 100.0 mg/dl (70-99(Fasting)); Magnesium 1.6 mg/dl (1.7-2.4); Potassium 4.4 mmol/L (3.5-5.1); Sodium 139.0 mmol/L (136-145)
[2025-04-19] MEDS: MAGNESIUM SULFATE / D5W 1 GM/100 ML BAG IV ONE (09:21)
--- NOTE | 2025-04-19 19:43 | Hospitalist Progress Note ---
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 He presented from home via EMS due to 48+ hours of multiple episodes of bright red blood coming from the gluteal/rectal region. #bleeding from rectum vs wilfrid-rectal region with gluteal cleft wound/decubitus ulcers - -suspect that most of the blood seen at home was from the severe skin breakdown and the gluteal cleft ulcerations -NO blood per rectum per the nursing staff since admission; stool has been brown -H/H remain stable/acceptable -tolerating regular diet -appreciate wound care consult and recs for the ulcerations & skin breakdown in the wilfrid-rectal / gluteal-sacral region -kaltostat advised -patient is in desperate need of off-loading his gluteal/sacral region to allow healing of the multiple bleeding ulcerations -he is largely chair/recliner-bound at home, and his recliner does NOT allow him to lay on his side to allow proper positioning/healing -only thing that will allow healing is a hospital bed; pt & family agree -his ongoing sacral/gluteal/wilfrid-rectal ulcers requires positioning of the body in ways not feasible with an ordinary bed -hospital bed will allow proper body positioning to alleviate pain in the gluteal/wilfrid-rectal region -he would also benefit from the head of the bed being elevated more than 30 degrees which will help with his breathing and in light of his morbid obesity #mild anemia - -Fe studies acceptable -B12 is low at 135 - replace IM daily x 5 days (day #5 is today), then switch to PO starting tomorrow -folate wnl -check B1 level am - pending; on empiric thiamine 200mg BID while awaiting level #right groin pain - -2018 hip x-rays showed SEVERE, end-stage OA changes of right hip -suspect the groin pain is from end-stage OA -tylenol, pain meds, baclofen TID for pain & spasm -obtained R hip x-rays; there was severe OA as expected but ?of a fracture; then obtained CT R hip - NO fracture seen #pre-DM - -a1c 5.5% in 01/2025 -DM diet -BSGs ac/hs remain acceptable -hold metformin while hospitalized #COPD - -no exacerbation at this time -cont usual inhalers including albuterol prn #HTN - -cont diltiazem but at lower dose of 120mg daily -resume low-dose lasix today 20mg #h/o adenocarcinoma of the colon - -s/p resection with anastomosis 1998 -last colonoscopy 2015 with 1 polyp only #candidal groin rash - -nystatin powder TID (also place on rectal/buttocks region) #hyperlipidemia - -change simvastatin daily to lipitor daily (due to simvastatin/diltiazem interaction) -checked CPK - wnl -LFTs wnl #DVT proph - -lovenox 40mg daily #ambulatory dysfunction - -PT, OT #recent b/l LE cellulitis - -resolved #B12 def - -B12 level <150 -B12 IM 1000mcg daily x 5 days then PO thereafter #abdominal distension - -x-rays with questionable large bowel ileus vs obstruction -obtained CT a/p - no obstruction seen, although he does have colonic excess gas -if diarrhea recurs - check c diff - but diarrhea has stopped #Urinary retention - -either 2nd to BPH vs neurogenic bladder vs combo of factors -ua not suspicious for UTI, urine cx neg -gee placed due to retention -leave gee in at discharge -started flomax daily for presumed BPH -patient already stating today he will not f/u with [facility] post-d/c --- "I don't go to doctor offices" -will encourage him to go to urology #vitamin D def - -25 [place] vit D level undetectable -ergocalciferol 45732 units weekly x 8 weeks #stasis dermatitis b/l legs - -eucerin cream BID + prn -topical steroid BID in thin amounts awaiting delivery of hospital bed to his house then can d/c home - 04/20/25 ?? updated extensively his grand-daughter Kirsten Turcios (she is primary caregiver) plan of care reviewed she will encourage him to attend doctor appts, perform PT at home, etc. Admission and Anticipated Discharge Date Admission Date: April 16, 2025 Subjective no events overnight feels well eating well R hip pain controlled anxious to get home no new complaints he is willing to do PT at the house Review of Systems Review of Systems: CV - no chest pain pulm - no dyspnea GI - no further diarrhea Physical Exam Physical Exam: gen - sitting in recliner chair, looks well neck - no JVD mouth - MMM heart - RRR, s1 s2, no murmur lungs - CTA b/l abd - soft, BS+, NT, ND ext - severe lymphedema b/l legs and feet - no change, pulses b/l feet 2+ skin - severe stasis changes from just below knees down to ankles -- again unchanged although scale/dry skin is improved b/l; no cellulitis; numerous nodules/large papules on shins - again unchanged Results & Data Results & Data Vital Signs (Past 12 Hours) Vital Signs Temp Pulse Pulse Resp BP Pulse Ox O2 Del Method 04/19/25 16:02 36.5 C 78 18 125/69 96 Room Air 04/19/25 15:17 77 04/19/25 12:44 36.5 C 66 18 114/67 92 Room Air Laboratory Results Laboratory Results - last 24 hr 04/18/25 04/19/25 04/19/25 20:27 05:57 06:00 WBC 9.01 RBC 3.27 L Hgb 9.4 L Hct 29.4 L MCV 89.9 MCH 28.7 MCHC 32.0 RDW Std Deviation 47.5 H RDW Coeff of Jocelyn 14.6 H Plt Count 113 L MPV 9.0 L VBG pH 7.40 VBG pCO2 45 VBG pO2 68 VBG HCO3 28 VBG O2 Saturation 95.9 VBG Base Excess 2.5 Sodium 139 Potassium 4.4 Chloride 107 Carbon Dioxide 26 Anion Gap 6 BUN 13 Creatinine 0.87 Est Cr Clr Drug Dosing 97.0 eGFR 89.43 BUN/Creatinine Ratio 14.9 Glucose 100 H POC Glucose 98 Calcium 8.2 L Magnesium 1.6 L 04/19/25 04/19/25 04/19/25 07:34 11:43 16:22 WBC RBC Hgb Hct MCV MCH MCHC RDW Std Deviation RDW Coeff of Jocelyn Plt Count MPV VBG pH VBG pCO2 VBG pO2 VBG HCO3 VBG O2 Saturation VBG Base Excess Sodium Potassium Chloride Carbon Dioxide Anion Gap BUN Creatinine Est Cr Clr Drug Dosing eGFR BUN/Creatinine Ratio Glucose POC Glucose 101 H 117 H 108 H Calcium Magnesium PG Care Time/CCT Total # of Minutes Spent Total Time Spent with Patient: Total time spent is greater than 50% in coordination of care (as documented) at patient's floor/unit and/or counseling patient: Coding Level of Care Code 24095 SUB INP/OBS CARE 2/35MIN Diagnoses Wound of gluteal cleft S31.809A Heme positive stool R19.5 Blood per rectum K62.5 Sylvia rash of groin B37.89 Osteoarthritis of right hip M16.11 Ambulatory dysfunction R26.2 DMII (diabetes mellitus, type 2) E11.9 COPD (chronic obstructive pulmonary disease) J44.9 GERD (gastroesophageal reflux disease) K21.9 Anemia D64.9 B12 deficiency E53.8 Decubitus ulcer L89.90 Stasis dermatitis of both legs I87.2 Vitamin D deficiency E55.9
[2025-04-19] MEDS: FUROSEMIDE 20 MG TAB PO SCH (20:31)
[2025-04-20 08:10] LABS: Anion Gap 5.0 (3-11); Blood Urea Nitrogen 14.0 mg/dl (6-23); Calcium 8.8 mg/dl (8.6-10.3); Carbon Dioxide 29.0 mmol/L (21-32); Chloride 104.0 mmol/L (98-107); Creatinine Clr Calc Pharmacy 95.0 ml/min; Glucose 97.0 mg/dl (70-99(Fasting)); Potassium 4.3 mmol/L (3.5-5.1); Sodium 138.0 mmol/L (136-145)
[2025-04-20] MEDS: CYANOCOBALAMIN (B-12) 500 MCG TABLET PO SCH (08:35)
[2025-04-20 12:04] VITALS: PULSE 94; RESP 19; TEMP 98.1; O2SAT 93
--- NOTE | 2025-04-20 15:58 | Discharge Summary ---
Discharge Summary Date of Service date of admission - April 14, 2025 date of discharge - April 20, 2025 Principal Dx & Hospital Course #1 = Principal Diagnosis (1) Wound of gluteal cleft: (2) Decubitus ulcer of buttock, stage 3: (3) Heme positive stool: (4) Sylvia rash of groin: (5) Osteoarthritis of right hip: (6) Ambulatory dysfunction: (7) DMII (diabetes mellitus, type 2): (8) COPD (chronic obstructive pulmonary disease): (9) GERD (gastroesophageal reflux disease): (10) Anemia: (11) B12 deficiency: (12) Stasis dermatitis of both legs: (13) Vitamin D deficiency: (14) Chronic venous insufficiency: (15) Lymphedema: Plan 75yo male with severe right hip arthritis, ambulatory dysfunction, lymphedema, COPD, GERD, BPH, HTN, pre-DM, 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 He presented from home via EMS due to 48+ hours of multiple episodes of bright red blood coming from the gluteal/rectal region. #bleeding from rectum vs sebastián-rectal region - with gluteal cleft wound/stage 3 buttock decubitus ulcer - present on admission - -suspect that most of the blood seen at home was from the severe skin breakdown and the gluteal cleft ulcerations/buttock ulcerations -NO blood per rectum per the nursing staff during the admission; stool has been brown -by report had trace fecal occult positivity in the emergency room, but suspect this was cross-contamination from all the bleeding from the various skin ulcers -H/H were stable while hospitalized -tolerating regular diet without any GI symptoms or gross GI bleeding -seen by the [facility] nurse team; Kaltostat rope advised for ulcerations, change daily -patient is in desperate need of off-loading his gluteal/sacral region to allow healing of the multiple bleeding ulcerations -he is largely chair/recliner-bound at home, and his recliner does NOT allow him to lay on his side to allow proper positioning/healing -only thing that will allow optimal healing is a hospital bed -his ongoing buttock/gluteal/sebastián-rectal ulcers requires positioning of the body in ways not feasible with an ordinary bed -hospital bed will allow proper body positioning to alleviate pain in the gluteal/sebastián-rectal region -he would also benefit from the head of the bed being elevated more than 30 degrees which will help with his breathing and in light of his morbid obesity -on day of discharge a hospital bed was delivered to the pt's home -I recommended he follow-up with the [facility] after discharge; however, he was very reluctant to schedule any follow-up as he "doesn't go to the doctor - it's hard to leave my house" -did psychotherapist counselor him there are medical transport vans that he can utilize to get to physician offices #anemia - -hemoglobin ranged 9.5 to 13 while here -there was some blood loss on hospital day #1 from the buttock wounds but the bleeding stopped after Kaltostat ropes were employed for these bleeding ulcers -Fe studies acceptable (ferritin 127, transferrin sat >20%, etc) -B12 low at 135 - replaced IM daily x 5 days, then switch to PO vitamin B12 1000mcg daily -folate wnl -B1 level returned wnl -again the bleeding he had had at home was not from the colon/rectum but rather from the sebastián-rectal skin ulcers, buttock ulcers/gluteal cleft ulcers #right groin pain 2nd to SEVERE right hip OA - -2018 hip x-rays showed SEVERE, end-stage OA changes of right hip -repeat x-rays again with end-stage OA; CT of R hip without fracture -tylenol prn, baclofen TID prn for pain & spasm -he did use some narcotic for the right hip pain while here, but these were not prescribed upon transition home -his severe OA is certainly contributing to poor quality of life and contributing heavily to his ambulatory dysfunction #pre-DM - -a1c 5.5% in 01/2025 -cont metformin 500mg BID #COPD - -no exacerbation while hospitalized -cont usual inhalers including albuterol prn #HTN - -cont diltiazem, but at lower dose of 120mg daily (had been taking 300mg daily prior to admission) -cont low-dose lasix 20mg qam #h/o adenocarcinoma of the colon (recto-sigmoid junction) - -s/p resection with anastomosis 1998 -last colonoscopy 2015 with 1 polyp only #candidal groin rash - -nystatin powder TID (also place on erythematous rash in rectal/buttocks region) #hyperlipidemia - -changed simvastatin daily to lipitor daily (due to simvastatin/diltiazem interaction) -checked CPK - wnl -LFTs wnl #B12 deficiency - -B12 level <150 -B12 IM 1000mcg daily x 5 days, then vitamin B12 1000mcg PO daily -recommend 6 months of Rx #abdominal distension - -x-rays with questionable large bowel ileus vs obstruction -obtained CT a/p - no obstruction seen, although he does have colonic excess gas -was moving his bowels frequently while hospitalized -distension resolved after he started to have frequent BMs #Urinary retention - -either 2nd to BPH vs neurogenic bladder vs combo of factors -bladder was VERY enlarged on CT scan of abd/pelvis -PVRs were quite high - 350-400cc or higher -ua not suspicious for UTI, urine cx negative -gee placed due to retention -left gee in at discharge -started flomax daily for presumed BPH -patient already stating today he will not f/u with [facility] post-d/c --- "I don't go to doctor offices" -will encourage him to go to urology -will send message to [facility] Outpatient Nurse Navigator to help with post- discharge care coordination #vitamin D def - -25 [place] vit D level undetectable -ergocalciferol 03307 units weekly x 8 weeks, first dose given in the hospital #stasis dermatitis b/l legs - -eucerin cream prn #morbid obesity BMI about 40 #chronic venous insufficiency / lymphedema of legs - -patient encouraged to wear compression -he has compression stockings at home but does not wear them -had the wound care team fit him with TubiGrip Stockings -encouraged him to wear during the day - remove at night-time -encouraged him to keep the shins moisturized to help with dryness/scale #recent b/l LE cellulitis - -had recent admission for such -- now resolved #DVT proph - -lovenox 40mg daily employed while here #ambulatory dysfunction - -PT, OT while hospitalized, and PT/OT advised at home grand-daughter Kirsten Turcios (patient's primary caregiver) updated prior to discharge Notes For Next Care Provider 1. local wound care to buttock/gluteal/sebastián-rectal ulcers - Kaltostat rope applied to these ulcerations, change daily 2. return home with gee -needs f/u with [facility] for gee management / voiding trial -patient reluctant to follow-up in the Urology clinic - if he refuses follow- up will need home-health nursing to pull catheter in about 2 weeks for voiding trial 3. hospital bed prescribed & delivered to pt's home 4. home PT/OT Medication Changes From Visit 1. LOWER cardizem CD to 120mg daily 2. nystatin powder to groin/scrotal rash and buttocks TID x 7 days 3. B12 1000mcg PO Daily x 6 months 4. Ergocalciferol 50,000 units once weekly x 7 additional weeks 5. flomax 0.4mg daily 6. d/c simvastatin 7. start atorvastatin 20mg daily 8. 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 He presents from home via EMS due to 48+ hours of multiple episodes of bright red blood coming from the gluteal/rectal region. Despite such he has had no loss or change in appetite, no abd pain, no nausea/emesis. Denies melena or tarry stool. The blood is often times on the sheet or towel that is underneath his buttocks region. When he has a bowel movement the blood seems separate from the stool. The stool has been dark brown. He denies any rectal pain. However, he has had sebastián-rectal discomfort as well as skin breakdown in this region. He also c/o pruritic rash in his groin region b/l. Last colonoscopy was in 2016 showing sigmoid diverticulitis as well as 1 polyp. Patient is essentially non-ambulatory at home and spends most of the day in his recliner chair. Finally, he c/o chronic right groin pain. Hurts with any right leg movement. Told years ago "I need a hip replacement." Discharge Exam gen - sitting in recliner chair, looks well, obese, awake/alert neck - no JVD mouth - MMM heart - RRR, s1 s2, no murmur lungs - CTA b/l abd - soft, BS+, NT, ND ext - severe lymphedema b/l legs and feet - no change, pulses b/l feet 2+ skin - severe stasis changes from just below knees down to ankles - pink/erythematous skin over both shins; no cellulitis; scale/dry skin improved b/l shins; numerous nodules/large papules on shins - again unchanged; candidal rash groin/scrotal region - improved Discharge Plan Discharge Items Patient Disposition: Home - Home Health Services Reason For Visit: SEBASTIÁN-RECTAL ULCER, ?LOWER GI BLEEDING Discharge Diagnosis: 1. bleeding from sebastián-rectal ulcers and skin breakdown in gluteal region; no bleeding from the actual rectum/anus 2. vitamin B12 deficiency 3. severe lymphedema & venous insufficiency of both legs 4. vitamin D deficiency 5. urinary retention with placement of gee catheter 6. candidal rash of groin & buttocks 7. SEVERE right hip arthritis 8. enlarged prostate 9. history of pre-diabetes 10. difficulty walking ("ambulatory dysfunction") Activity: Resume your previous activity Non-emergency contact: Primary Care Provider and Urologist Call non-emergency contact if: you have any medication questions, your symptoms worsen, your pain is not controlled and you have a fever Follow-up/Referrals: Pro,Harlan Hernandez MD [Primary Care Provider] - 04/29/25 10:30 am Anahi Mercado CRNP [Nurse Practitioner] - 05/04/25 8:00 am Diet: Carb Consistent or DM2 Addtl Attending Provider Instructions: Mr Arenas, During your stay we tended to your buttock/gluteal/sebastián-rectal wounds, gave you vitamin B12 injections, started some new medicines for your right hip arthritis, got you fitted with "tubigrip" stockings for your legs (to help with venous insufficiency/lymphedema), gave nystatin powder for yeast rash in the groin/buttocks areas, and worked on getting you a hospital bed to help heal the wounds. Recommendations - 1. take ggsb-ozm-ikucynk vitamin B12 1000mcg daily x 6 months 2. tubigrip stockings - use during the daytime; take off at night-time while sleeping 3. follow the instructions given by the Wound Care Nurse Valeria for care of the wounds on your buttocks/sebastián-rectal region 4. you can use homs-oun-fkcvegq eucerin cream twice or three times daily on your shins to keep those areas moisturized 5. empty the gee bag as needed; remember it should be low to the ground (below the level of your bladder) 6. start tamsulosin 0.4mg daily for your prostate; this medicine may help facilitate the removal of your gee catheter down the line -most common side effect - dizziness upon standing 7. we have LOWERED the dose of your diltiazem to 120mg once daily; new script sent in 8. baclofen 5mg every 8 hours as needed for muscle spasm 9. for your right hip arthritis - kias-uca-vilavkm tylenol 1000mg up to three times daily would be helpful for your pain 10. we have changed your cholesterol medicine from simvastatin to atorvastatin 20mg once daily; new script sent to pharmacy for you 11. nystatin powder three times daily to your groin, buttocks, and scrotum for yeast rash; do this for 1 week HIGHLY RECOMMEND that you follow-up with the [facility] for your wounds as well as [facility] to manage the bladder & catheter problems Return to [facility] if - -you have fever over 100 degrees -you develop severe diarrhea (3 or more liquid stools in 24 hours) -you have shortness of breath or chest pains -you have any concerns about your gee catheter -you have worsening pain, redness, drainage or bleeding from the buttock wounds -any other concerns It was our pleasure to care for you! -Syd Jenkins Pending Studies at Discharge: Yes (vitamin B1 level ) Stand-Alone Forms: My [facility], Smoking Cessation Medications and DC Order Prescriptions: New tamsulosin 0.4 mg Capsule 0.4 mg PO QAM Qty: 30 2RF baclofen 10 mg Tablet 5 mg PO TID PRN (Reason: muscle spasm) Qty: 20 0RF atorvastatin 20 mg Tablet 20 mg PO HS Qty: 30 2RF nystatin [Nystop] 100,000 unit/gram Powder 1 applic EXT TID Qty: 30 2RF Rx Instructions: apply to groin, buttocks, and scrotum x 7 days cyanocobalamin (vitamin B-12) 1,000 mcg tablet 1,000 mcg PO DAILY Qty: 90 1RF Rx Instructions: purchase jtfk-ucm-gnfjypv; take for 6 months. Continued metformin 500 mg tablet 500 mg PO BID Qty: 180 3RF potassium chloride 20 mEq tablet extended release 20 meq PO QAM Qty: 30 1RF furosemide 20 mg tablet 20 mg PO QAM Qty: 90 1RF diphenhydramine HCl [Benadryl Allergy] 25 mg Tablet 25 mg PO HS PRN (Reason: Sleep) Trelegy Ellipta 100-62.5-25 mcg blister with device 1 inh inhalation QAM albuterol sulfate 90 mcg/actuation HFA aerosol inhaler 2 inh inhalation 6XD PRN (Reason: shortness of breath or wheezing) Qty: 8.5 0RF Changed diltiazem HCl 120 mg capsule,extended release 24hr 120 mg PO DAILY Qty: 30 2RF Discontinued simvastatin 20 mg tablet 20 mg PO QPM Qty: 90 3RF hydroxyzine HCl 25 mg tablet 25 mg PO BID PRN (Reason: itching) Qty: 60 1RF Hold Instructions: Resume on 03/13/23. Discharge Orders: Discharge Order (Routine); Ordered 04/20/25 Ordered By: Syd Higuera/Other Patient Handouts: Understanding Lymphedema, Nutrition for Wound Healing, Wound Care, CVI, Cellulitis Dc, ED Gee Catheter, Care Admission Data Admit Date/Time: 04/16/25 14:34 Attending Provider: Olivia Villalobos Admit Provider: Syd Jenkins Primary Care Provider: Harlan Osorio Other Providers: [facility],Home Healthcare Other Interventions: Discharge Summary Assessment (RN) Last Done: 04/20/25 17:24 Hospital Stay Data Consultations PT, OT wound care Procedures Performed gee placement Diagnostic Imagining Performed Hip/Pelvis X-Ray 04/16/25 07:15 EXAM: XR hips RANCHO 1v w pelvis CLINICAL HISTORY: Severe b/l hip pain TECHNIQUE: X-ray images of the pelvis were obtained in anteroposterior (AP) and both hips in lateral projections. COMPARISON: No prior studies available for comparison. FINDINGS: Bone Structure: The pelvic bones, including the iliac wings, ischium, pubis, and sacrum, are normal and intact. There is no evidence of fractures or dislocations. Hip Joints: There is a lucency in the neck of the right femur, which is suspicious for a fracture of indeterminate age. There are severe osteoarthritic changes of the right hip joint, demonstrated by femoroacetabular spurring, subarticular sclerosis, and marked joint space narrowing. There are mild osteoarthritic changes of the left hip joint, seen as femoroacetabular spurring and sclerotic change of the acetabular roof, with no significant joint space narrowing. Sclerotic changes of the right femoral head are noted, with no fragmentation or collapse. There is no evidence of hip dislocation or subluxation. Acetabulum: There are no signs of acetabular fracture or dysplasia. Symphysis Pubis: The symphysis pubis is normal and intact. There is no evidence of separation or widening. Sacroiliac Joints: There are degenerative changes in both sacroiliac joints. Soft Tissues: Multiple pelvic metallic clips are noted. A prominent urinary bladder shadow is noted. Additional Findings: No other significant abnormalities are noted. IMPRESSION: 1. Lucency in the neck of the right femur is suspicious for a fracture of indeterminate age. 2. Severe right hip joint osteoarthritis. 3. Mild left hip joint osteoarthritis. 4. Clinical correlation and further evaluation by CT are suggested if indicated. Disclaimer: A subtle bone abnormality or fracture may not be readily apparent on X-rays, thus clinical correlation and further imaging including follow-up CT, MRI, or follow-up X-rays are advised as needed. Electronically signed by Nacho Tan 04-16-2025 08:17 AM KUB X-Ray 04/16/25 07:15 EXAM: XR KUB/Abdomen 1 view CLINICAL HISTORY: abd distension; impaction? TECHNIQUE: X-ray images of the abdomen were obtained in the frontal position. COMPARISON: X-ray bilateral hips with pelvis performed on the same day was reviewed. FINDINGS: Gas Pattern: Gas-filled, prominent large bowel loops are seen, with the most distended loop measuring up to 8.8 cm in dvlz-da-gpmp diameter. On concomitant X-ray of the pelvis performed on the same day, there is evident paucity of rectal air also detected. Surgical clips are also identified in the pelvis, likely in keeping with prior surgery. Bones: Dextroscoliosis is seen in the visualized spine, with multilevel degenerative changes identified, predominantly at the L5-S1 level. IMPRESSION: 1. Imaging findings are raising the concern for large bowel obstruction/fecal impaction as described above. 2. Clinical correlation and workup with a CT scan of the abdomen contrast study is warranted for further evaluation. Electronically signed by Nacho Tan 04-16-2025 08:20 AM Abdomen/Pelvis CT 04/16/25 09:32 CT SCAN OF THE ABDOMEN AND PELVIS WITH IV CONTRAST CLINICAL HISTORY: Abdominal distension. COMPARISON STUDY: Abdominal CT scans dated 01/24/2025 and 05/23/2023. TECHNIQUE: Following the IV administration of 93 cc of Optiray 320, CT scan of the abdomen and pelvis is performed from the lung bases to the proximal femora. Images are reviewed in the axial, sagittal, and coronal planes. IV contrast was administered without complication. A dose lowering technique was utilized adhering to the principles of ALARA. FINDINGS: Lung bases: The heart is normal in size and without pericardial effusion. The coronary arteries and mitral annulus are densely calcified. Emphysema is suspected. Right middle lobe pulmonary nodules measuring up to 4 mm seen on images #5 and #23 are unchanged. There are trace pleural effusions with dependent atelectasis. Liver: The contrast-enhanced liver is enlarged, measuring 19 cm in length. Attenuation is diminished indicating steatosis. There is no intrahepatic biliary ductal dilatation. The hepatic veins and portal veins are patent. Gallbladder: Unremarkable. Spleen: Normal in size and attenuation. Pancreas: Unremarkable. Adrenal glands: Unremarkable. Kidneys: The contrast enhanced kidneys demonstrate mild cortical atrophy and are without hydronephrosis. The kidneys enhance symmetrically. A 2.9 cm cyst is noted in the right upper pole. Abdominal vasculature: The abdominal aorta is normal in course and caliber noting moderate to advanced atherosclerotic calcification. Bowel: There is mild to moderate clonic fecal retention. No bowel obstruction is seen. There are perirectal surgical clips. The appendix is well-visualized and normal. Peritoneum: There is no intraperitoneal free air or abdominal ascites. There is a fat-containing umbilical hernia. Lymphadenopathy: Mildly enlarged retroperitoneal and iliac chain lymph nodes are similar appearance to studies dating back to 2022. A right common iliac chain on image #232 measures 1.4 cm in short axis. The right external iliac chain node on image #304 measures 1.7 cm short axis. Pelvic viscera: The prostate gland is mildly enlarged and heterogeneous. The bladder is distended, and the wall appears thickened and slightly trabeculated indicating chronic outlet obstruction. Skeletal structures: The skeletal structures are osteopenic. There is moderate to advanced lumbosacral spondylosis as well as scoliosis. No lytic or blastic lesions are seen. Degenerative change and partial fusion is noted in the sacroiliac joints. Arthritic change is seen in the hips. This is severe on the right. IMPRESSION: 1. No acute infectious or inflammatory findings are identified in the abdomen or pelvis. 2. Mild to moderate colonic fecal retention. 3. Significant bladder distention. 4. Advanced coronary artery atherosclerosis. 5. Trace pleural effusions. 6. Mildly enlarged retroperitoneal and iliac chain lymph nodes are indeterminant, and similar in appearance to studies dated back to 2022. 7. Additional findings as above. ACT 112: Negative or not required by law. Electronically signed by: Sree Diana M.D. 04/16/2025 10:[address] 04/16/25 09:[address] WITHOUT CONTRAST CLINICAL HISTORY: Severe right hip osteoarthritis. Possible right hip fracture. COMPARISON STUDY: CT of the abdomen and pelvis May 23, 2023. Pelvis and hip radiographs April 16, 2025 at 7:04 AM. TECHNIQUE: Axial images of the right hip were obtained without IV contrast. Sagittal and coronal reformats were viewed. A dose lowering technique was utilized adhering to the principles of ALARA. FINDINGS: Incidental note is made of moderate distention of the bladder. There are no fractures within the right hip. The possible right femoral neck fracture on radiographs from earlier today was artifactual. Severe joint space narrowing with extensive osteophytosis is noted. There is associated flattening of the right femoral head. There is no evidence for avascular necrosis. No mass or fluid collection adjacent to the right hip is present. There is no right inguinal lymphadenopathy. There are no fractures within visualized portions of the pelvis. The right sacroiliac joint is partially ankylosed. IMPRESSION: 1. No fractures within the right hip. The possible right femoral neck fracture on radiographs was artifactual. 2. Severe right hip osteoarthritis. ACT 112: Negative or not required by law. Electronically signed by: Fortino Martin M.D. 04/16/2025 10:34 AM Discharge Instructions Given to Patient (Per Discharging Provider) Mr Arenas, During your stay we tended to your buttock/gluteal/sebastián-rectal wounds, gave you vitamin B12 injections, started some new medicines for your right hip arthritis, got you fitted with "tubigrip" stockings for your legs (to help with venous insufficiency/lymphedema), gave nystatin powder for yeast rash in the groin/buttocks areas, and worked on getting you a hospital bed to help heal the wounds. Recommendations - 1. take touh-sjy-mkhvecb vitamin B12 1000mcg daily x 6 months 2. tubigrip stockings - use during the daytime; take off at night-time while sleeping 3. follow the instructions given by the Wound Care Nurse Valeria for care of the w ounds on your buttocks/sebastián-rectal region 4. you can use bhvq-dhz-grmtphy eucerin cream twice or three times daily on your shins to keep those areas moisturized 5. empty the gee bag as needed; remember it should be low to the ground (below the level of your bladder) 6. start tamsulosin 0.4mg daily for your prostate; this medicine may help facilitate the removal of your gee catheter down the line -most common side effect - dizziness upon standing 7. we have LOWERED the dose of your diltiazem to 120mg once daily; new script sent in 8. baclofen 5mg every 8 hours as needed for muscle spasm 9. for your right hip arthritis - vwne-dxu-hnloonc tylenol 1000mg up to three times daily would be helpful for your pain 10. we have changed your cholesterol medicine from simvastatin to atorvastatin 20mg once daily; new script sent to pharmacy for you 11. nystatin powder three times daily to your groin, buttocks, and scrotum for yeast rash; do this for 1 week HIGHLY RECOMMEND that you follow-up with the [facility] for your wounds as well as [facility] to manage the bladder & catheter problems Return to [facility] if - -you have fever over 100 degrees -you develop severe diarrhea (3 or more liquid stools in 24 hours) -you have shortness of breath or chest pains -you have any concerns about your gee catheter -you have worsening pain, redness, drainage or bleeding from the buttock wounds -any other concerns It was our pleasure to care for you! -Syd Jenkins Total Time Total Time Spent Total Time Spent (In Minutes): 50 Total Time Includes: Examination of the Patient, Discharge Planning, Medication Reconciliation and Communication With Other Providers Coding Level of Care Code 31516 INP/OBS DISCH >30 MIN Diagnoses Wound of gluteal cleft S31.809A Decubitus ulcer of buttock, stage 3 L89.303 Heme positive stool R19.5 Sylvia rash of groin B37.89 Osteoarthritis of right hip M16.11 Ambulatory dysfunction R26.2 DMII (diabetes mellitus, type 2) E11.9 COPD (chronic obstructive pulmonary disease) J44.9 GERD (gastroesophageal reflux disease) K21.9 Anemia D64.9 B12 deficiency E53.8 Stasis dermatitis of both legs I87.2 Vitamin D deficiency E55.9 Chronic venous insufficiency I87.2 Lymphedema I89.0
[2025-04-20 17:25] VITALS: BP 117/65
== END 2025-04-20 18:45 | disposition home health service (06) | DRG 593 ==
LOC: ED 11:04 → EDINP 11:04 → 2S 17:28 → SUATTDRO 04-16 14:34
DX: M16.11 Unilateral primary osteoarthritis, right hip; D64.9 Anemia, unspecified; R73.03 Prediabetes; E78.5 Hyperlipidemia, unspecified; I87.2 Venous insufficiency (chronic) (peripheral); R33.9 Retention of urine, unspecified; E55.9 Vitamin D deficiency, unspecified; R26.2 Difficulty in walking, not elsewhere classified; E53.8 Deficiency of other specified B group vitamins; K21.9 Gastro-esophageal reflux disease without esophagitis; J44.9 Chronic obstructive pulmonary disease, unspecified; K56.7 Ileus, unspecified; L89.303 Pressure ulcer of unspecified buttock, stage 3; Z85.038 Personal history of other malignant neoplasm of large intestine; Z87.891 Personal history of nicotine dependence; N40.1 Benign prostatic hyperplasia with lower urinary tract symptoms; B37.2 Candidiasis of skin and nail; I10 Essential (primary) hypertension